=== PATIENT | male | born 1955 | race Caucasian/White ===

== ENCOUNTER 2020-12-30 14:18 | Outpatient (REF) | payer BC, SELFPAY | END 2020-12-30 14:19 | disposition home or self-care (01) | LOC: HO.HOSX 14:18 | PROVIDERS: Visit Provider Orthopaedic Surgery | DX: Z13.89 Encounter for screening for other disorder (principal) ==

== ENCOUNTER 2020-12-31 09:24 | Outpatient (REF) | payer OTHER, BC, SELFPAY ==
--- NOTE | ~2020-12-31 | XR_ITS ---
EXAMINATION: XR KNEES, STANDING AP XR KNEE, RIGHT CLINICAL INFORMATION: Right knee pain. COMPARISON: Radiographs right knee 02/27/2019, 11/03/2016, 12/10/2010 TECHNIQUE: Standing AP view of both knees is performed along with lateral and axial patella views of the right knee. FINDINGS: Right: There is narrowing lateral knee joint compartment with secondary genu valgus similar to prior study 02/27/2019. There are no erosive changes. There is likely some mild chondrocalcinosis medial meniscus. Axial view patella shows no lateralization or tilting. The lateral view shows moderate suprapatellar effusion. Hoffa's fat pad appears normal. Again, there is serpiginous mineralization within the intramedullary proximal tibial shaft consistent with old bone infarct. There is subtle linear lucency in the proximal tibial metaphysis lateral aspect which is a chronic finding, present on prior exams, consistent with benign entity. Left: No definite joint narrowing. No erosive change or definite chondrocalcinosis. Bony mineralization normal. There are bilateral scattered vascular atherosclerotic calcifications. XR/XR knee RT 2V IMPRESSION: Right: 1. Narrowing lateral compartment with secondary genu valgus and moderate suprapatellar effusion. Fine chondrocalcinosis medial meniscus. 2. 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 Old vertically oriented lucencies lateral proximal tibial metaphysis similar to prior studies, consistent with benign entity. Left: Unremarkable. Other: Bilateral vascular atherosclerotic calcifications.
--- NOTE | ~2020-12-31 | XR_ITS ---
EXAMINATION: XR KNEES, STANDING AP XR KNEE, RIGHT CLINICAL INFORMATION: Right knee pain. COMPARISON: Radiographs right knee 02/27/2019, 11/03/2016, 12/10/2010 TECHNIQUE: Standing AP view of both knees is performed along with lateral and axial patella views of the right knee. FINDINGS: Right: There is narrowing lateral knee joint compartment with secondary genu valgus similar to prior study 02/27/2019. There are no erosive changes. There is likely some mild chondrocalcinosis medial meniscus. Axial view patella shows no lateralization or tilting. The lateral view shows moderate suprapatellar effusion. Hoffa's fat pad appears normal. Again, there is serpiginous mineralization within the intramedullary proximal tibial shaft consistent with old bone infarct. There is subtle linear lucency in the proximal tibial metaphysis lateral aspect which is a chronic finding, present on prior exams, consistent with benign entity. Left: No definite joint narrowing. No erosive change or definite chondrocalcinosis. Bony mineralization normal. There are bilateral scattered vascular atherosclerotic calcifications. XR/XR knee standing BI IMPRESSION: Right: 1. Narrowing lateral compartment with secondary genu valgus and moderate suprapatellar effusion. Fine chondrocalcinosis medial meniscus. 2. 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 Old vertically oriented lucencies lateral proximal tibial metaphysis similar to prior studies, consistent with benign entity. Left: Unremarkable. Other: Bilateral vascular atherosclerotic calcifications.
== END 2020-12-31 09:25 | disposition home or self-care (01) ==
LOC: HO.HOSX 09:24
PROVIDERS: PCP Internal Medicine; Visit Provider Orthopaedic Surgery
DX: M17.11 Unilateral primary osteoarthritis, right knee (principal); M25.562 Pain in left knee
CPT/HCPCS: 20610; 73560; 73565; 99202; J1040

== ENCOUNTER 2021-12-17 10:19 | Outpatient (REF) | payer BC, SELFPAY ==
[2021-12-17 10:40] LABS: MANUAL DIFF FLAG NO
[2021-12-17 10:46] LABS: Basophils Percent Auto 0.3 % (0-2); Eosinophils Absolute Auto 0.1 X10*3/uL (0.0-0.4); Eosinophils Percent Auto 0.6 % (0-4); Hematocrit 40.8 % (42.0-52.0); Hemoglobin 13.8 g/dl (14.0-18.0); Imm Gran Abs Auto 0.05 X10*3/uL (0.00-0.03); Imm Gran Pct Auto 0.6 % (0.0-0.4); Lymphocytes Absolute Auto 1.8 X10*3/uL (1.2-4.9); Lymphocytes Percent Auto 19.7 % (20-40); Mean Corpuscular HGB Conc 33.8 g/dl (31.0-36.0); Mean Corpuscular Volume 97.6 fL (80.0-98.0); Mean Platelet Volume 9.4 fL (9.4-12.4); Monocytes Absolute Auto 0.8 X10*3/uL (0.1-1.2); Monocytes Percent Auto 9.1 % (2-11); Neutrophils Absolute Auto 6.2 x10*3/uL (2.0-8.3); Neutrophils Percent Auto 69.7 % (45-73); Platelet Count 323 X10*3/uL (160-400); Red Blood Count 4.18 X10*6/uL (4.60-5.80); Red Cell Distribution Width 14.3 % (11.0-16.0); White Blood Count 8.9 X10*3/uL (4.8-10.8)
[2021-12-17 11:34] LABS: Alanine Aminotransferase 23 U/L (0-40); Albumin Level 3.9 g/dL (3.5-5.0); Alkaline Phosphatase 74 U/L (39-117); Anion Gap 11 (12-20); Aspartate Amino Transferase 36 U/L (5-37); Bilirubin Total 0.8 mg/dL (0.0-1.0); Blood Urea Nitrogen 23 mg/dL (9-16); Calcium 9.7 mg/dL (8.4-10.2); Carbon Dioxide 33 mmol/L (22-29); Chloride 98 mmol/L (96-108); Cholesterol 212 mg/dL; Estimated Glomerular Filt Rate > 60; Glucose Fasting 98 mg/dL (60-99); HDL Cholesterol 90 mg/dL; LDL Cholesterol Calculated 109 mg/dl; Sodium 137 mmol/L (135-145); Total Protein 7.2 g/dL (6.5-8.0); Triglycerides 67 mg/dL
[2021-12-17 11:52] LABS: Prostate Specific Antigen Scr 1.49 ng/mL (<0.05-4.0)
== END 2021-12-17 10:20 | disposition home or self-care (01) ==
LOC: HO.LAB 10:19
PROVIDERS: PCP Internal Medicine; Visit Provider Internal Medicine
DX: Z00.00 Encounter for general adult medical examination without abnormal findings (principal); Z12.5 Encounter for screening for malignant neoplasm of prostate
CPT/HCPCS: 36415; 80053; 80061; 84153; 85025

== ENCOUNTER 2022-10-18 13:09 | Inpatient (IN) | payer MEDICARE, SELFPAY ==
--- NOTE | ~2022-10-18 | XR_ITS ---
EXAMINATION: XR CHEST CLINICAL INFORMATION: Dyspnea COMPARISON: 10/18/2022 TECHNIQUE: Frontal view of the chest was obtained. FINDINGS: Mild elevation of the right hemidiaphragm. Cardiac leads overlie the chest. Mild medial right basilar opacity. No additional consolidation. No edema or effusion. No pneumothorax. The cardiomediastinal silhouette is within normal limits. XR/XR chest 1V IMPRESSION: Mild medial right basilar opacity could represent atelectasis or pneumonia. Aspiration possible.
--- NOTE | ~2022-10-18 | XR_ITS ---
EXAMINATION: XR CHEST CLINICAL INFORMATION: Failure to thrive. COMPARISON: None TECHNIQUE: Frontal view of the chest was obtained. FINDINGS: Prominent bronchovascular markings are noted at left perihilar and lower lung field, may represent subtle interstitial pneumonia/viral pneumonia versus reactive airway disease. Otherwise unremarkable. No focal dense airspace consolidation. The cardiac mediastinal silhouette is within normal limit. No evidence of pleural effusion. XR/XR chest 1V IMPRESSION: Prominent bronchovascular markings at left perihilar and left lower lung field, may represent subtle interstitial pneumonia/viral pneumonia versus reactive airway disease. Follow-up radiograph to resolution is recommended.
--- NOTE | ~2022-10-18 | XR_ITS ---
EXAMINATION: XR CHEST CLINICAL INFORMATION: Cough. COMPARISON: Chest x-ray 11/03/2022 TECHNIQUE: Frontal portable view of the chest was obtained. 4:22 PM FINDINGS: Lung volume low. Redemonstration of the patchy and linear opacity at the medial right lung base. This was not present on the chest x-ray 10/18/2022, however was present on the chest x-ray November 03, 2022. This remains similar since prior prior chest x-ray. Left lung normally aerated. No pulmonary vascular congestion. No pleural effusion or pneumothorax. Heart size is normal. Cardiac mediastinal contours are normal. XR/XR chest 1V IMPRESSION: Persistent patchy and linear opacity at the medial right lung base. This is similar to prior chest x-ray 10/18/2022. This is concerning for pneumonia given history of cough.
--- NOTE | ~2022-10-18 | XR_ITS ---
EXAMINATION: XR CHEST CLINICAL INFORMATION: Shortness of breath COMPARISON: Chest radiograph 11/01/[address] abdomen pelvis 10/18/2022 TECHNIQUE: Frontal view of the chest was obtained. FINDINGS: Heart size normal. There is no evidence of CHF. Atelectasis is again noted in the right mid to lower lung. No acute infiltrates, suspicious lung masses or pleural effusions are seen. XR/XR chest 1V IMPRESSION: No acute intrathoracic disease.
--- NOTE | ~2022-10-18 | CT_ITS ---
EXAMINATION: CT RENAL WITHOUT AND WITH IV CONTRAST CLINICAL INFORMATION: Renal lesion on right. COMPARISON: Abdomen CT from 10/18/2022 TECHNIQUE: Noncontrast and contrast-enhanced volumetric helical CT acquisition of the abdomen. Axial images are presented at 0.6 mm, 3 mm and 5 mm slice thickness. Coronal and sagittal reformatted images were generated at the technologist workstation. Intravenous contrast: 85 mL of Omnipaque 350. This CT examination was performed using dose optimization techniques as appropriate, variously including the following: *Automated exposure control *Adjustment of mA and/or kV according to patient size (this includes techniques or standardized protocols for targeted exams where dose is matched to indication/reason for exam; i.e. extremities or head) *Use of iterative reconstruction technique DLP: 1216 mGy-cm. FINDINGS: LUNG BASES: Compared to 10/18/2022, there is new consolidation with air bronchograms of the right lower lobe along with small right pleural effusion. LIVER, GALLBLADDER, AND BILIARY TREE: Diffuse hepatic steatosis. Otherwise, liver is unremarkable. The gallbladder is grossly normal; no radiopaque gallstones, wall thickening, or pericholecystic fluid. No intrahepatic or extrahepatic bile duct dilatation. PANCREAS: Normal. No evidence of pancreatic mass, edema or ductal dilatation. SPLEEN: Normal. ADRENAL GLANDS: Normal. KIDNEYS AND URETERS: Kidneys are normal in size. No nephrolithiasis or hydronephrosis. 0.8 cm hyperdense cortical lesion of the posterior right kidney has attenuation of 56 HU on the noncontrast images and 58 HU on the postcontrast images, consistent with a hyperdense, proteinaceous cyst (Bosniak category 2 lesion). Also, there is a 0.8 cm simple cortical cyst of the right kidney, and 0.9 cm simple cyst of the mid left kidney. No renal imaging follow-up is recommended for Bosniak category 1 or category 2 cysts. BOWEL AND PERITONEUM: Stomach is unremarkable. No dilated loops of bowel. The appendix is normal. There are diverticula of the partially visualized colon without diverticulitis. ABDOMINAL WALL: A small focus of gas in superficial subcutaneous tissue of the right abdominal wall is likely from recent injection. There is edema within subcutaneous tissues of the flanks and back. LYMPH NODES: No pathologic sized lymph nodes. VASCULATURE: Atherosclerotic calcification of the abdominal aorta and iliac arteries without aneurysm. MUSCULOSKELETAL: Chronic multilevel degenerative arthropathy of the spine. Within lumbar spine, degenerative disc disease is worst at L4-L5 and L5-S1. There is an old concave compression fracture of the L1 inferior endplate. CT/CT renal wo/w IV con IMPRESSION: * Right lower lobe consolidation and small right pleural effusion are new compared to 10/18/2022. Right lower lobe pneumonia is suspected. * Diffuse hepatic steatosis. * 0.8 cm hyperdense/proteinaceous cyst of the right kidney. No suspicious renal lesions. * There is an old concave compression fracture of the L1 inferior endplate.
--- NOTE | ~2022-10-18 | XR_ITS ---
EXAMINATION: XR CHEST CLINICAL INFORMATION: Fever COMPARISON: 10/18/2022 and 10/31/2022 TECHNIQUE: Frontal view of the chest was obtained. FINDINGS: Bronchial valerio are diffusely thickened. Query if there is any history of asthma, cigarette smoking and/or orchitis. A curvilinear opacity in the medial right lower lung is consistent with atelectasis. No overt airspace disease. No pleural effusion. Cardiac silhouette has normal size and contour. The pulmonary vascular pattern is normal. The visualized bones are intact. XR/XR chest 1V IMPRESSION: * Bronchial valerio are thickened. Query if there is any history of asthma or bronchitis. Infectious inflammation of the airways is possible in this patient with history of fever. * Curvilinear opacity in the medial right lower lung likely represents atelectasis. No overt pneumonia.
--- NOTE | ~2022-10-18 | CT_ITS ---
EXAMINATION: CT head/brain wo IV con CLINICAL INFORMATION: Reason for Exam increased confusion COMPARISON: None. TECHNIQUE: Contiguous axial imaging was performed from the skull base to vertex without intravenous contrast. Sagittal and coronal reformatted images were obtained. This CT examination was performed using dose optimization techniques as appropriate, variously including the following: * Automated exposure control * Adjustment of mA and/or kV according to patient size (this includes techniques or standardized protocols for targeted exams where dose is matched to indication/reason for exam; i.e. extremities or head) Use of iterative reconstruction technique DLP: 699 mGy-cm FINDINGS: No acute osseous or soft tissue abnormality. The mastoids are clear. Mild to moderate paranasal sinus mucosal thickening, most prominently involving the right frontal and bilateral maxillary sinuses. Hyperostosis of the right maxillary sinus wall indicative of chronic sinusitis. There is no evidence of acute intracranial hemorrhage or territorial infarction. No abnormal mass effect or midline shift is seen. [place] to white matter differentiation is well preserved. No extra-axial fluid collections are identified. No hydrocephalus. Proportional prominence of the ventricles and sulcal spaces is consistent with mild volume loss. Patchy periventricular and deep white matter hypoattenuation is consistent with mild small vessel ischemic changes. CT/CT head/brain wo IV con IMPRESSION: No acute intracranial abnormality including hemorrhage, mass effect, hydrocephalus, or acute territorial edematous infarction.
--- NOTE | ~2022-10-18 | US_ITS ---
EXAMINATION: US VENOUS ULTRASOUND WITH DOPPLER LOWER EXTREMITY, RIGHT CLINICAL INFORMATION: Right lower extremity edema. Assess for occult DVT. COMPARISON: Radiographs right knee 12/31/2020 TECHNIQUE: Ultrasound of the deep veins is performed from the hip to the calf with compression sonography and color and pulse Doppler assessment. Spectral analysis with color-flow imaging is performed. FINDINGS: There is normal venous compression and respiratory variation and augmented flow. The visualized common femoral vein, superficial femoral vein, profunda femoral vein, popliteal vein, and the trifurcation region shows no evidence of deep venous thrombosis. The posterior tibial and peroneal veins are not clearly visualized. Unable to assess. If the patient's symptoms persist, followup ultrasound in 5 days 7 days might be of value to exclude proximal propagation from a non-visualized calf vein. There is a fluid collection extending from the knee superiorly and measuring 3.7 x 7.6 x 10.9 cm. No peripheral or internal vascularity. No hyperemia. US/US venous duplex LE RT IMPRESSION: -No DVT demonstrated in the right lower extremity from hip to the upper calf. -If the patient's symptoms persist, followup ultrasound in 5 days 7 days might be of value to exclude proximal propagation from a non-visualized calf vein. -Fluid collection extending from the superiorly and measuring 3.7 x 7.6 x 10.9 cm.
[2022-10-18 13:27] VITALS: BP 131/77; BP 96/62; PULSE 68; PULSE 91; RESP 19; TEMP 36.4; O2SAT 96; BMI 29.0
--- NOTE | 2022-10-18 13:50 | ECG_ITS ---
Test Reason : failure to thrive Blood Pressure : / mmHG Vent. Rate : 125 BPM Atrial Rate : 111 BPM P-R Int : 236 ms QRS Dur : 066 ms QT Int : 272 ms P-R-T Axes : 261 079 -78 degrees QTc Int : 392 ms Poor data quality Normal sinus rhythm No previous ECGs available Referred By: Jay Jay Loyd Electronically Signed By:Jaron Mccarthy
--- NOTE | 2022-10-18 13:56 | ED.GENADULT ---
HPI - General Adult General Chief complaint: Failure to Thrive Stated complaint: weakness Time Seen by Provider: 10/18/22 13:46 Source: patient, family (Brother) and EMS Mode of arrival: EMS Limitations: no limitations History of Present Illness HPI narrative: 67-year-old male was brought in by ambulance for further evaluation after was found soaked in urine and feces in his apartment. Patient's brother was trying to call the patient for the past couple weeks with no answer, visited him today found him on the ground cannot get himself up patient cannot confirm for how long he has been on the ground, patient was soaked in urine and feces with cans of beers and alcohol on the ground patient admitted to drinking every day, patient is in very poor hygienic condition when he came to the ED with dry stool and severe skin irritation in the perineal area and mottling of bilateral lower extremities. Patient is not a great historian but declined fever chills. Taking the history from the brother last time he saw the patient was 2 weeks ago patient was active until few months ago when he retired his job, patient lives home alone appeared that he drinks every day. Related Data Previous Rx's Medication Instructions Recorded lisinopril 10 mg tablet 10 mg PO DAILY #90 tabs 04/23/22 hydrochlorothiazide 25 mg tablet 25 mg PO DAILY #90 tabs 05/25/22 Allergies Allergy/AdvReac Type Severity Reaction Status Date / Time No Known Allergies Allergy Verified 05/20/22 10:27 Review of Systems Review of Systems: All other systems are reviewed and are negative Constitutional: Reports as per HPI and Reports no additional constitutional complaints Eyes: Reports as per HPI and Reports no additional eye complaints Reports system reviewed and no additional complaints, except as documented Cardiovascular: Reports as per HPI and Reports no additional cardiovascular complaints Respiratory: Reports as per HPI and Reports no additional respiratory complaints Gastrointestinal: Reports as per HPI and Reports no additional gastrointestinal complaints Genitourinary: Reports no additional female genitourinary complaints Musculoskeletal: Reports no additional musculoskeletal complaints Skin/Breast: Reports system reviewed and no additional complaints, except as docu Psychiatric: Reports no additional psychiatric complaints Endocrine: Reports no additional endocrine complaints Hematologic/Lymphatic: Reports no additional hematologic/lymphatic complaints Allergic/Immunologic: Reports no additional allergic/immunologic complaints Reports system reviewed and no additional complaints, except as documented and Reports Abnormal speech present [facility] Past Medical History Medical History Hypertension Surgical History History of lumbar laminectomy Family History Family History Father No problems noted. Mother Lung cancer Family/Other Lung cancer Throat cancer Social History Social History Housing: Apartment Alcohol intake: current Alcohol intake frequency: 3 or more drinks per day Alcohol type: beer Patient Tobacco Use Status: Current everyday Tobacco user Tobacco use type: Cigarette Cigarette Packs Per Day: 1 Cigarettes Per Day: 20 Smoked in Last 30 Days: Yes e-Cigarette/Vaping Use: Never Used Second Hand Smoke Exposure: Yes Use of substances other than those prescribed or required for medical reasons: No Advance Directives: No Advance Directives Information Provided: Yes service: No Current occupational status: employed 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 Blood pressure normal. Heart rate normal. Respiration rate normal. Temperature normal. Oxygen saturation normal. Appearance: Alert. Oriented to person and place but not to time. Disheveled. in a very poor in general hygienic condition. Head: Normal external exam. Normocephalic. Atraumatic. No Chapman signs noted. No raccoon eyes noted Eyes: PERRLA. EOMI. Conjunctiva and sclera normal. Eyelids normal. ENT: TM's Normal. Pharynx normal. Uvula midline. Moist mucous membranes. No trismus noted. No drooling noted. No muffled voice noted. Neck: Normal inspection. Neck supple. FROM. No adenopathy. Thyroid Normal. No meningeal signs. No neck mass noted. CVS: Normal heart rate and rhythm. Heart sound normal. No murmurs noted. Pulses normal throughout. Respiratory: No respiratory distress. Painless inspiration. Breath sounds normal. No wheezes/rales/rhonchi noted. Chest nontender. No accessory muscle usage noted or decreased air movement noted. Abdomen: Soft and nontender. Bowel sounds normal in all 4 quadrants. No distention noted. No organomegaly noted. No visible injury noted. Back: No CVA tenderness. Full range of motion noted. Decubitus pressure ulcers on the left hip area and rectal area. Skin: Poor hygienic skin condition in a perennial area with redness and hotness in the area and dry stool and urine, PT/DP palpable, no toe ischemic change.. Extremities: No lower extremity edema. Bilateral lower extremities mottling no obvious severe acute ischemic change to the foot or toes Neuro: Oriented X 3. Cranial nerve exam: II-XII are grossly intact No motor deficit. No sensory deficit. Reflexes normal. Skin Other: Course Course Course Narrative: 67-year-old male brought in by ambulance from home with deconditioning and deteriorating. 1. Patient is positive for influenza a and COVID. 2. Buttock area cellulitis no severe sepsis or septic shock patient received IV fluids and Zosyn, no evidence of necrotizing fasciitis on the CT of the abdomen and pelvis. 3. Start phenobarb for alcohol withdrawal precaution. 4. Mild rhabdomyolysis continue with IV hydration. 5. Elevated troponin nondiagnostic EKG due to artifact patient with severe tremors will trend serial troponin. Medications Administered Discontinued Medications Generic Name Dose Route Start Last Admin Trade Name Freq PRN Reason Stop Dose Admin Bacitracin 1 appl 10/18/22 13:49 10/18/22 15:08 Bacitracin Oint 0.9 Gm Packet TOPICAL 10/18/22 13:50 1 appl ONCE ONE Administration Protocol Sodium Chloride 1,000 mls @ 999 mls/hr 10/18/22 13:47 10/18/22 15:08 Ns IV 10/18/22 14:47 999 mls/hr .Q1H1M ONE Administration Piperacillin Sod/Tazobactam 50 mls @ 100 mls/hr 10/18/22 13:53 10/18/22 15:28 Sod 3.375 gm/ Sodium Chloride IV 10/18/22 14:22 100 mls/hr ONCE ONE Administration Phenobarbital Sodium 320 mg 10/18/22 15:00 10/18/22 15:11 Phenobarbital Sodium 130 Mg/Ml Im Once IM 10/18/22 15:01 320 mg ONCE ONE Administration Medical Decision Making Differential Diagnosis Differential Diagnoses: The differential diagnosis associated with the presentation includes (Alcohol withdrawal/rhabdomyolysis/JOHNY/severe dehydration/upper respiratory infection/necrotizing fasciitis/buttock cellulitis.) Admission/Observation Consideration of admission/observation: Escalation of care including admission/observation considered Consult Healthcare Provider Management of the patient was discussed with: Hospitalist Lab Data MDM Lab Attestation statement: I reviewed the patient's lab results. Result Diagrams: 10/18/22 14:49 10/18/22 14:49 Labs: Lab Results 10/18/22 10/18/22 10/18/22 Range/Units 14:48 14:48 14:48 WBC (4.8-10.8) X10*3/uL RBC (4.60-5.80) X10*6/uL Hgb (14.0-18.0) g/dl Hct (42.0-52.0) % MCV (80.0-98.0) fL MCH (27.0-33.0) pg MCHC (31.0-36.0) g/dl RDW (11.0-16.0) % Plt Count (160-400) X10*3/uL MPV (9.4-12.4) fL Immature Gran % (Auto) (0.0-0.4) % Neut % (Auto) (45-73) % Lymph % (Auto) (20-40) % [place] % (Auto) (2-11) % Eos % (Auto) (0-4) % Baso % (Auto) (0-2) % Lymph # (Auto) (1.2-4.9) X10*3/uL [place] # (Auto) (0.1-1.2) X10*3/uL Eos # (Auto) (0.0-0.4) X10*3/uL Baso # (Auto) (0.0-0.2) X10*3/uL Abs Immat Gran (auto) (0.00-0.03) X10*3/uL Absolute Neuts (auto) (2.0-8.3) x10*3/uL Absolute Nucleated RBC (0.0-0.012) X10*3/uL Nucleated RBC % (auto) (0.0-0.2) /100WBC Smear Tech's Comments Sodium (135-145) mmol/L Potassium (3.3-5.1) mmol/L Chloride (96-108) mmol/L Carbon Dioxide (22-29) mmol/L Anion Gap (12-20) BUN (9-16) mg/dL Creatinine (0.5-1.4) mg/dL Estim Creat Clear Calc Estimated GFR Random Glucose (60-115) mg/dL Lactic Acid 2.3 H* (0.5-2.0) mmol/L Calcium (8.4-10.2) mg/dL Magnesium (1.6-2.6) mg/dL Total Bilirubin (0.0-1.0) mg/dL Direct Bilirubin (0.0-0.5) mg/dL AST (5-37) U/L ALT (0-40) U/L Alkaline Phosphatase (39-117) U/L Total Creatine Kinase (38-174) U/L Troponin I High Sens 222.1 H* (<3.5-35.0) ng/L B-Natriuretic Peptide (<100) pg/mL Total Protein (6.5-8.0) g/dL Albumin (3.5-5.0) g/dL Lipase (8-78) U/L Urine Color Dark Yellow Urine Appearance Clear Urine pH 5.5 (5.0-9.0) Ur Specific [place] 1.025 (1.005-1.025) Urine Protein Trace (Neg-Trace) mg/dL Urine Glucose (UA) Negative (Negative) mg/dL Urine Ketones 15 (Negative) mg/dL Urine Blood Negative (Negative) Urine Nitrite Negative (Negative) Ur Leukocyte Esterase Trace H (Negative) Urine RBC 0-2 (0-2) /HPF Urine WBC 6-10 H (0-5) /HPF Ur Squamous Epith Cells 0-2 (0-2) /HPF Urine Bacteria None Seen (None Seen) Hyaline Casts 0-2 (0-2) /LPF Ethyl Alcohol mg/dL Influenza Type A (PCR) (Negative) Influenza Type B (PCR) (Negative) RSV RNA Qual (PCR) (Negative) SARS-CoV-2 RNA (RT-PCR) (Negative) 10/18/22 10/18/22 10/18/22 Range/Units 14:49 14:49 14:49 WBC 10.9 H (4.8-10.8) X10*3/uL RBC 4.70 (4.60-5.80) X10*6/uL Hgb 15.5 (14.0-18.0) g/dl Hct 43.7 (42.0-52.0) % MCV 93.0 (80.0-98.0) fL MCH 33.0 (27.0-33.0) pg MCHC 35.5 (31.0-36.0) g/dl RDW 13.1 (11.0-16.0) % Plt Count 281 (160-400) X10*3/uL MPV 11.0 (9.4-12.4) fL Immature Gran % (Auto) 1.3 H (0.0-0.4) % Neut % (Auto) 68.6 (45-73) % Lymph % (Auto) 20.3 (20-40) % [place] % (Auto) 9.5 (2-11) % Eos % (Auto) 0.0 (0-4) % Baso % (Auto) 0.3 (0-2) % Lymph # (Auto) 2.2 (1.2-4.9) X10*3/uL [place] # (Auto) 1.0 (0.1-1.2) X10*3/uL Eos # (Auto) 0.0 (0.0-0.4) X10*3/uL Baso # (Auto) 0.0 (0.0-0.2) X10*3/uL Abs Immat Gran (auto) 0.14 H (0.00-0.03) X10*3/uL Absolute Neuts (auto) 7.5 (2.0-8.3) x10*3/uL Absolute Nucleated RBC 0.000 (0.0-0.012) X10*3/uL Nucleated RBC % (auto) 0.0 (0.0-0.2) /100WBC Smear Tech's Comments VERIFIED Sodium 141 (135-145) mmol/L Potassium 4.8 (3.3-5.1) mmol/L Chloride 97 (96-108) mmol/L Carbon Dioxide 27 (22-29) mmol/L Anion Gap 22 H (12-20) BUN 37 H (9-16) mg/dL Creatinine 1.04 (0.5-1.4) mg/dL Estim Creat Clear Calc 87.9 Estimated GFR > 60 Random Glucose 80 (60-115) mg/dL Lactic Acid (0.5-2.0) mmol/L Calcium 8.6 D (8.4-10.2) mg/dL Magnesium (1.6-2.6) mg/dL Total Bilirubin 0.9 (0.0-1.0) mg/dL Direct Bilirubin 0.6 H (0.0-0.5) mg/dL AST 221 H (5-37) U/L ALT 195 H (0-40) U/L Alkaline Phosphatase 143 H (39-117) U/L Total Creatine Kinase 810 H (38-174) U/L Troponin I High Sens (<3.5-35.0) ng/L B-Natriuretic Peptide 334 H (<100) pg/mL Total Protein 5.9 L (6.5-8.0) g/dL Albumin 2.8 L (3.5-5.0) g/dL Lipase 24 (8-78) U/L Urine Color Urine Appearance Urine pH (5.0-9.0) Ur Specific [place] (1.005-1.025) Urine Protein (Neg-Trace) mg/dL Urine Glucose (UA) (Negative) mg/dL Urine Ketones (Negative) mg/dL Urine Blood (Negative) Urine Nitrite (Negative) Ur Leukocyte Esterase (Negative) Urine RBC (0-2) /HPF Urine WBC (0-5) /HPF Ur Squamous Epith Cells (0-2) /HPF Urine Bacteria (None Seen) Hyaline Casts (0-2) /LPF Ethyl Alcohol mg/dL Influenza Type A (PCR) (Negative) Influenza Type B (PCR) (Negative) RSV RNA Qual (PCR) (Negative) SARS-CoV-2 RNA (RT-PCR) (Negative) 10/18/22 10/18/22 Range/Units 14:49 14:52 WBC (4.8-10.8) X10*3/uL RBC (4.60-5.80) X10*6/uL Hgb (14.0-18.0) g/dl Hct (42.0-52.0) % MCV (80.0-98.0) fL MCH (27.0-33.0) pg MCHC (31.0-36.0) g/dl RDW (11.0-16.0) % Plt Count (160-400) X10*3/uL MPV (9.4-12.4) fL Immature Gran % (Auto) (0.0-0.4) % Neut % (Auto) (45-73) % Lymph % (Auto) (20-40) % [place] % (Auto) (2-11) % Eos % (Auto) (0-4) % Baso % (Auto) (0-2) % Lymph # (Auto) (1.2-4.9) X10*3/uL [place] # (Auto) (0.1-1.2) X10*3/uL Eos # (Auto) (0.0-0.4) X10*3/uL Baso # (Auto) (0.0-0.2) X10*3/uL Abs Immat Gran (auto) (0.00-0.03) X10*3/uL Absolute Neuts (auto) (2.0-8.3) x10*3/uL Absolute Nucleated RBC (0.0-0.012) X10*3/uL Nucleated RBC % (auto) (0.0-0.2) /100WBC Smear Tech's Comments Sodium (135-145) mmol/L Potassium (3.3-5.1) mmol/L Chloride (96-108) mmol/L Carbon Dioxide (22-29) mmol/L Anion Gap (12-20) BUN (9-16) mg/dL Creatinine (0.5-1.4) mg/dL Estim Creat Clear Calc Estimated GFR Random Glucose (60-115) mg/dL Lactic Acid (0.5-2.0) mmol/L Calcium (8.4-10.2) mg/dL Magnesium 2.2 (1.6-2.6) mg/dL Total Bilirubin (0.0-1.0) mg/dL Direct Bilirubin (0.0-0.5) mg/dL AST (5-37) U/L ALT (0-40) U/L Alkaline Phosphatase (39-117) U/L Total Creatine Kinase (38-174) U/L Troponin I High Sens (<3.5-35.0) ng/L B-Natriuretic Peptide (<100) pg/mL Total Protein (6.5-8.0) g/dL Albumin (3.5-5.0) g/dL Lipase (8-78) U/L Urine Color Urine Appearance Urine pH (5.0-9.0) Ur Specific [place] (1.005-1.025) Urine Protein (Neg-Trace) mg/dL Urine Glucose (UA) (Negative) mg/dL Urine Ketones (Negative) mg/dL Urine Blood (Negative) Urine Nitrite (Negative) Ur Leukocyte Esterase (Negative) Urine RBC (0-2) /HPF Urine WBC (0-5) /HPF Ur Squamous Epith Cells (0-2) /HPF Urine Bacteria (None Seen) Hyaline Casts (0-2) /LPF Ethyl Alcohol < 10 mg/dL Influenza Type A (PCR) POSITIVE A (Negative) Influenza Type B (PCR) NEGATIVE (Negative) RSV RNA Qual (PCR) NEGATIVE (Negative) SARS-CoV-2 RNA (RT-PCR) POSITIVE A (Negative) Independent Interpretation I performed an independent interpretation of an: Plain X-Ray (No acute pathology.) and CT Scan (Abdomen: No subcutaneous air suggesting for necrotizing fasciitis.) Radiology Impression Discussion of test interpretation with radiology: I have reviewed the radiologist's reading. Critical Care Time Critical Care Time Critical Care Time: Yes Total Critical Care Time: 60 Attestation: I spent 60 minutes providing critical care service to the patient, this including time spent at the bedside to evaluate the patient, reassess the patient, monitoring vital signs, review labs, and radiographic studies, counseling the patient/family, discussing the case with consultants, disposition the patient. Discharge Plan Discharge Clinical Impression: Rhabdomyolysis, Cellulitis of buttock, Alcohol withdrawal, COVID-19 virus infection, Influenza A, Elevated troponin level Patient Disposition: Admitted As Inpatient Prescriptions: No Action lisinopril 10 mg tablet 10 mg PO DAILY Qty: 90 8RF hydrochlorothiazide 25 mg tablet 25 mg PO DAILY Qty: 90 7RF
--- NOTE | 2022-10-18 14:08 | PC.NURSE ---
pt is a/o x 4 no sob/katlyn noted speaks in full sentences. lungs- cta. heart sounds regular. abd soft and non-tender. bx + x 4 uqads. pt parrish legs mottled. pt has an abrasion to r knee approx quarter in size. pt has abrasion (soumya) to left hip approx half a dollar in size. pt parrish groin soumya. pt buttock enormous area has stage II patchy areas of open area some areas scabbed over.pt was found to be incontinent of urine area red and raw, areas cleansed and bacitracin applied. moisture barrier cream to parrish groin areas. pt also has bony prominences to parrish shoulder areas no open areas noted. draper cath 16 fr inserted with joni color urine and 800ml with immediate output.
[2022-10-18 14:09] VITALS: BP 135/85; PULSE 100; RESP 16; TEMP 35.7; O2SAT 93
--- NOTE | 2022-10-18 14:54 | PHA.MEDREC ---
Pharmacy Consult ? Medication Reconciliation Pharmacy has completed the medication reconciliation. Patient confirmed medications. Reports he last took them yesterday. Reports using [facility] to get medications. Angela Gay, LeonardaD
[2022-10-18 15:00] LABS: Basophils Percent Auto 0.3 % (0-2); Hematocrit 43.7 % (42.0-52.0); Hemoglobin 15.5 g/dl (14.0-18.0); Imm Gran Abs Auto 0.14 X10*3/uL (0.00-0.03); Imm Gran Pct Auto 1.3 % (0.0-0.4); Lymphocytes Absolute Auto 2.2 X10*3/uL (1.2-4.9); Lymphocytes Percent Auto 20.3 % (20-40); MANUAL DIFF FLAG SCAN; Mean Corpuscular HGB Conc 35.5 g/dl (31.0-36.0); Monocytes Percent Auto 9.5 % (2-11); Neutrophils Absolute Auto 7.5 x10*3/uL (2.0-8.3); Neutrophils Percent Auto 68.6 % (45-73); Platelet Count 281 X10*3/uL (160-400); Red Cell Distribution Width 13.1 % (11.0-16.0); SCAN SMEAR FLAG 1; White Blood Count 10.9 X10*3/uL (4.8-10.8)
[2022-10-18 15:04] LABS: Appearance Urine Clear; Color Urine Dark Yellow; Glucose Urine UA Negative (Negative); Leukocyte Esterase Urine Trace (Negative); Nitrite Urine Negative (Negative); PH 5.5 (5.0-9.0); Specific Gravity - Urine 1.025 (1.005-1.025); UMIC TRIGGER UACC YES; Urine Blood Negative (Negative); Urine Ketones 15 mg/dL (Negative); Urine Protein Trace mg/dL (Neg-Trace)
[2022-10-18 15:15] VITALS: O2SAT 95
[2022-10-18 15:16] LABS: Bacteria Urine None Seen (None Seen); Hyaline Casts Urine 0-2 /LPF (0-2); RBC Urine 0-2 /HPF (0-2); Squamous Epithelial Cell Urine 0-2 /HPF (0-2); UACC Culture Trigger YES
[2022-10-18 15:23] LABS: SLIDE REVIEW VERIFIED
[2022-10-18 15:26] LABS: B Type Natriuretic Peptide 334 pg/mL (<100)
[2022-10-18 15:27] LABS: Lactic Acid 2.3 mmol/L (0.5-2.0)
[2022-10-18 15:28] LABS: Ethanol < 10 mg/dL; Magnesium 2.2 mg/dL (1.6-2.6)
[2022-10-18 15:34] LABS: Alanine Aminotransferase 195 U/L (0-40); Albumin Level 2.8 g/dL (3.5-5.0); Alkaline Phosphatase 143 U/L (39-117); Anion Gap 22 (12-20); Aspartate Amino Transferase 221 U/L (5-37); Bilirubin Direct 0.6 mg/dL (0.0-0.5); Bilirubin Total 0.9 mg/dL (0.0-1.0); Blood Urea Nitrogen 37 mg/dL (9-16); Calcium 8.6 mg/dL (8.4-10.2); Carbon Dioxide 27 mmol/L (22-29); Chloride 97 mmol/L (96-108); Creatinine Clr Calc Pharmacy 87.9; Estimated Glomerular Filt Rate > 60; Glucose Random 80 mg/dL (60-115); Lipase 24 U/L (8-78); Potassium 4.8 mmol/L (3.3-5.1); Sodium 141 mmol/L (135-145); Total Protein 5.9 g/dL (6.5-8.0)
[2022-10-18 15:36] LABS: Influenza A PCR POSITIVE (Negative); Influenza B PCR NEGATIVE (Negative); Resp Syncy Virus RNA Qual PCR NEGATIVE (Negative); SARS COV2 PCR INHOUSE POSITIVE (Negative)
[2022-10-18 15:37] LABS: Troponin-I High Sensitivity 222.1 ng/L (<3.5-35.0)
--- NOTE | 2022-10-18 16:51 | P.HPHOSP_ITS ---
History of Present Illness Date of Service: 10/18/22 <Brittany Cesar NP - Last Filed: 10/19/22 09:30> Attending physician on admission: Natanael Horowitz <Brittany Cesar NP - Last Filed: 10/19/22 09:30> Chief Complaint: Failure to thrive <Brittany Cesar NP - Last Filed: 10/19/22 09:30> 67-year-old man presenting to the ER with failure to thrive. Apparently the patient's brother had been trying to reach him for a few weeks with no an swer he, he went to visit him today and found him on the ground soaked in urine and feces in his apartment and found in very poor hygiene make conditions. Patient had previously been quite active but recently retired and lives at home alone. He was also found surrounded by beer cans. Unfortunately patient cannot confirm for how long he had been on the ground the CPK was mildly elevated in the 800s. Was also noted to have severe excoriation with cellulitis to his buttocks. Mildly hypothermic with lactic acidosis and tachycardia. Influenza and COVID positive. Possible consolidation on x-ray. Noted transaminitis. In the ER he was given Zosyn, started phenobarbital, 1 L of IV fluid and [employer] recent applied to his buttock area. He will be admitted for further management and treatment of failure to thrive, influenza and COVID and likely viral pneumonia. <Brittany Cesar NP - Last Filed: 10/19/22 09:30> Review of Systems Review of Systems: Yes Unobtainable due to mental condition and Unobtainable due to mental status <Brittany Cesar NP - Last Filed: 10/19/22 09:30> [facility] Medical History: Medical History Hypertension <Brittany Cesar NP - Last Filed: 10/19/22 09:30> Family History: Family History Father No problems noted. Mother Lung cancer Family/Other Lung cancer Throat cancer <Brittany Cesar NP - Last Filed: 10/19/22 09:30> Surgical History: Surgical History History of lumbar laminectomy <Brittany Cesar NP - Last Filed: 10/19/22 09:30> Social History: Social History Household Members: None Housing: Apartment Unable to assess alcohol history related to: Unable to respond Alcohol intake: current Alcohol intake frequency: 3 or more drinks per day Alcohol type: beer Patient Tobacco Use Status: Current everyday Tobacco user Tobacco use type: Cigarette Cigarette Packs Per Day: 1 Cigarettes Per Day: 20 Smoked in Last 30 Days: Yes e-Cigarette/Vaping Use: Never Used Patient Interested in Nicotine Replacement: No Patient Given Instructions on How to Stop Smoking: No Second Hand Smoke Exposure: Yes Use of substances other than those prescribed or required for medical reasons: Unable to respond Have you been hit, kicked, punched, or otherwise hurt by someone within the past year? 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 Cognitive needs: No Hearing needs: No Vision needs: Yes <Brittany Cesar NP - Last Filed: 10/19/22 09:30> Meds Allergies/Adverse reactions: Allergies Allergy/AdvReac Type Severity Reaction Status Date / Time No Known Allergies Allergy Verified 05/20/22 10:27 <Brittany Cesar NP - Last Filed: 10/19/22 09:30> Active Medications: Current Medications Ampicillin Sodium/Sulbactam (Sodium 3 gm/ Sodium Chloride) 100 mls @ 200 mls/hr IV Q6H [facility] Vancomycin HCl (Vancomycin/Ns) 2,000 mg in 520 mls @ 260 mls/hr IV ONCE ONE Stop: 10/18/22 18:59 Lisinopril (Lisinopril 10 Mg Tablet) 10 mg PO DAILY [facility]; Protocol Oseltamivir Phosphate (Oseltamivir Phosphate 75 Mg Capsule) 75 mg PO Q12H [facility] Stop: 10/23/22 05:01 Pharmacy Consult (Consult Rx Perform Med Rec) 1 each MISCELLANE ONCE PRN PRN Reason: Consult order Pharmacy Consult (Consult Rx Etoh Phenob Im/Po) 1 each MISCELLANE ONCE PRN; Protocol PRN Reason: Consult order Pharmacy Consult (Consult Rx Vancomycin Dosing) 1 each MISCELLANE DAILY [facility] Phenobarbital (Phenobarbital 30 Mg Tablet) 60 mg PO BID [facility] Stop: 10/20/22 21:01 Phenobarbital (Phenobarbital 30 Mg Tablet) 30 mg PO BID [facility] Stop: 10/22/22 21:01 Phenobarbital (Phenobarbital 30 Mg Tablet) 30 mg PO DAILY [facility] Stop: 10/24/22 09:01 Phenobarbital Sodium (Phenobarbital Sodium 130 Mg/Ml Vial Im Q3hx2) 240 mg IM Q3H [facility] Stop: 10/18/22 21:01 <Brittany Cesar NP - Last Filed: 10/19/22 09:30> Physical Exam Vital Signs and Narrative: Vital Signs: Last Vital Signs Temp 96.2 F L 10/18/22 14:09 Pulse 100 10/18/22 14:09 Resp 16 10/18/22 14:09 BP 135/85 10/18/22 14:09 Pulse Ox 95 10/18/22 15:15 O2 Del Method 10/18/22 15:15 BMI result Body Mass Index 29.0 <Brittany Cesar NP - Last Filed: 10/19/22 09:30> Appearing in no acute distress, unkept appearance head is normocephalic atraumatic eyes pupils are PERRLA sclera is anicteric mouth throat mucous membranes are intact and moist neck is supple no lymphadenopathy, no JVD noted lung sounds are clear to auscultation heart regular rate rhythm, clear S1, S2 positive bowel sounds, abdomen is soft, nontender neuro patient is alert x3, no focal deficits Severe excoriation, cellulitic area to buttocks with dried stool multiple scabbed areas to knees <Brittany Ceasr NP - Last Filed: 10/19/22 09:30> Results Labs CBC and Chem 7: : 10/19/22 05:52 10/19/22 05:52 <Brittany Cesar NP - Last Filed: 10/19/22 09:30> Labs: Laboratory Results - last 24 hr 10/18/22 10/18/22 10/18/22 14:48 14:48 14:48 MCV MCH MCHC RDW Plt Count MPV Immature Gran % (Auto) Neut % (Auto) Lymph % (Auto) [place] % (Auto) Eos % (Auto) Baso % (Auto) Lymph # (Auto) [place] # (Auto) Eos # (Auto) Baso # (Auto) Abs Immat Gran (auto) Absolute Neuts (auto) Absolute Nucleated RBC Nucleated RBC % (auto) Smear Tech's Comments Anion Gap Estim Creat Clear Calc Estimated GFR Random Glucose Lactic Acid 2.3 H* Calcium Magnesium Total Bilirubin Direct Bilirubin AST ALT Alkaline Phosphatase Total Creatine Kinase Troponin I High Sens 222.1 H* B-Natriuretic Peptide Total Protein Albumin Lipase Urine Color Dark Yellow Urine Appearance Clear Urine pH 5.5 Ur Specific [place] 1.025 Urine Protein Trace Urine Glucose (UA) Negative Urine Ketones 15 Urine Blood Negative Urine Nitrite Negative Ur Leukocyte Esterase Trace H Urine RBC 0-2 Urine WBC 6-10 H Ur Squamous Epith Cells 0-2 Urine Bacteria None Seen Hyaline Casts 0-2 Ethyl Alcohol Influenza Type A (PCR) Influenza Type B (PCR) RSV RNA Qual (PCR) SARS-CoV-2 RNA (RT-PCR) 10/18/22 10/18/22 10/18/22 14:49 14:49 14:49 MCV 93.0 MCH 33.0 MCHC 35.5 RDW 13.1 Plt Count 281 MPV 11.0 Immature Gran % (Auto) 1.3 H Neut % (Auto) 68.6 Lymph % (Auto) 20.3 [place] % (Auto) 9.5 Eos % (Auto) 0.0 Baso % (Auto) 0.3 Lymph # (Auto) 2.2 [place] # (Auto) 1.0 Eos # (Auto) 0.0 Baso # (Auto) 0.0 Abs Immat Gran (auto) 0.14 H Absolute Neuts (auto) 7.5 Absolute Nucleated RBC 0.000 Nucleated RBC % (auto) 0.0 Smear Tech's Comments VERIFIED Anion Gap 22 H Estim Creat Clear Calc 87.9 Estimated GFR > 60 Random Glucose 80 Lactic Acid Calcium 8.6 D Magnesium Total Bilirubin 0.9 Direct Bilirubin 0.6 H AST 221 H ALT 195 H Alkaline Phosphatase 143 H Total Creatine Kinase 810 H Troponin I High Sens B-Natriuretic Peptide 334 H Total Protein 5.9 L Albumin 2.8 L Lipase 24 Urine Color Urine Appearance Urine pH Ur Specific [place] Urine Protein Urine Glucose (UA) Urine Ketones Urine Blood Urine Nitrite Ur Leukocyte Esterase Urine RBC Urine WBC Ur Squamous Epith Cells Urine Bacteria Hyaline Casts Ethyl Alcohol Influenza Type A (PCR) Influenza Type B (PCR) RSV RNA Qual (PCR) SARS-CoV-2 RNA (RT-PCR) 10/18/22 10/18/22 14:49 14:52 MCV MCH MCHC RDW Plt Count MPV Immature Gran % (Auto) Neut % (Auto) Lymph % (Auto) [place] % (Auto) Eos % (Auto) Baso % (Auto) Lymph # (Auto) [place] # (Auto) Eos # (Auto) Baso # (Auto) Abs Immat Gran (auto) Absolute Neuts (auto) Absolute Nucleated RBC Nucleated RBC % (auto) Smear Tech's Comments Anion Gap Estim Creat Clear Calc Estimated GFR Random Glucose Lactic Acid Calcium Magnesium 2.2 Total Bilirubin Direct Bilirubin AST ALT Alkaline Phosphatase Total Creatine Kinase Troponin I High Sens B-Natriuretic Peptide Total Protein Albumin Lipase Urine Color Urine Appearance Urine pH Ur Specific [place] Urine Protein Urine Glucose (UA) Urine Ketones Urine Blood Urine Nitrite Ur Leukocyte Esterase Urine RBC Urine WBC Ur Squamous Epith Cells Urine Bacteria Hyaline Casts Ethyl Alcohol < 10 Influenza Type A (PCR) POSITIVE A Influenza Type B (PCR) NEGATIVE RSV RNA Qual (PCR) NEGATIVE SARS-CoV-2 RNA (RT-PCR) POSITIVE A <Brittany Cesar ORNAMENTAL METAL WORKER APPRENTICE - Last Filed: 10/19/22 09:30> Imaging Radiologist's Impressions: Impressions Chest X-Ray 10/18/22 14:35 IMPRESSION: Prominent bronchovascular markings at left perihilar and left lower lung field, may represent subtle interstitial pneumonia/viral pneumonia versus reactive airway disease. Follow-up radiograph to resolution is recommended. Abdomen/Pelvis CT 10/18/22 14:40 IMPRESSION: Asymmetric subcutaneous fat stranding in the left gluteal soft tissues with overlying skin thickening suggestive of cellulitis. Please note that the scrotum and gluteal soft tissues are incompletely imaged. No subcutaneous emphysema within the field of view to suggest necrotizing fasciitis. Lower lobe bronchiectasis with bronchial wall thickening suggesting airways inflammation. Patchy centrilobular nodules in the left lung base suggesting airways infection. Age-indeterminate inferior wedge compression deformity of the L1 vertebral body with approximately 50% height loss. Hepatic steatosis. A 1 cm indeterminate, intermediate attenuation right renal lesion for which differential considerations could include a hyperdense renal cyst or a small renal mass. CT renal mass protocol or MR with contrast is recommended for further evaluation. 4 mm solid left lower lobe pulmonary nodule. Assuming patient has no history of malignancy, recommend follow-up per Fleischner Society recommendations. According to the UPDATED 2017 Fleischner Society recommendations, the advised followup imaging for solid nodules < 6 mm is: LOW RISK PATIENT: No routine follow up. HIGH RISK PATIENT: Optional CT at 12 months. <Brittany Cesar NP - Last Filed: 10/19/22 09:30> Assessment and Plan (1) Rhabdomyolysis: Status: Acute <Brittany Cesar NP - Last Filed: 10/19/22 09:30> 67-year-old man presented with failure to thrive and severe alcoholism, he drinks on a daily basis and was found his home extremely unkept Severe sepsis, multifactorial with cellulitis, COVID-19 and influenza Hypothermia, tachycardia, lactic acidosis No hypotension, no need for 30 mL/kg fluid bolus at this time Blood cultures pending COVID 19/influenza a No hypoxia noted, no need for remdesivir or steroids at this time Chest x-ray showing lower lobe bronchiectasis with bronchial wall thickening suggestive of airway inflammation with airway infection Unasyn and vancomycin Tamiflu Supplemental oxygen Id consult Severe buttocks excoriation/cellulitis Keep area clean bacitracin wound consult Continue vancomycin Failure to thrive Likely secondary to alcohol use Physical therapy consultation Addiction medicine consultation Add protein to diet, encourage oral intake Alcohol abuse Started on phenobarbital Addiction medicine consultation pending Folic acid, thiamine, multivitamin Elevated CPK. 810 Patient found on the ground by his brother, unable to calculate how long he had been there Secondary to dehydration, fall IV fluids Transaminitis Secondary to alcohol abuse Follow closely Elevated troponin No complaints of chest pain No ischemic changes on EKG Likely secondary to elevated CPK Repeat Hypertension Stable blood pressure Continue lisinopril DVT prophylaxis with heparin Full code Patient will need 2 inpatient midnights for treatment of influenza a and COVID- 19 along with severe buttocks cellulitis and failure to thrive <Brittany Cesar NP - Last Filed: 10/19/22 09:30> 67-year-old man presented with failure to thrive and severe alcoholism, he drinks on a daily basis and was found his home extremely unkept Severe sepsis, multifactorial with cellulitis, COVID-19 and influenza Hypothermia, tachycardia, lactic acidosis No hypotension, no need for 30 mL/kg fluid bolus at this time Blood cultures pending COVID 19/influenza a No hypoxia noted, no need for remdesivir or steroids at this time Chest x-ray showing lower lobe bronchiectasis with bronchial wall thickening suggestive of airway inflammation with airway infection Unasyn and vancomycin Tamiflu Supplemental oxygen Id consult Severe buttocks excoriation/cellulitis Keep area clean bacitracin wound consult Continue vancomycin Failure to thrive Likely secondary to alcohol use Physical therapy consultation Addiction medicine consultation Add protein to diet, encourage oral intake Alcohol abuse Started on phenobarbital Addiction medicine consultation pending Folic acid, thiamine, multivitamin Elevated CPK. 810 Patient found on the ground by his brother, unable to calculate how long he had been there Secondary to dehydration, fall IV fluids Transaminitis Secondary to alcohol abuse Follow closely Elevated troponin No complaints of chest pain No ischemic changes on EKG Likely secondary to elevated CPK Repeat Hypertension Stable blood pressure Continue lisinopril DVT prophylaxis with heparin Full code Patient will need 2 inpatient midnights for treatment of influenza a and COVID- 19 along with severe buttocks cellulitis and failure to thrive Addendum to history and physical by the advanced practice provider, Brittany Cesar I interviewed and examined the patient. I discussed their presentation and management with the SHAREE. I reviewed the history and physical and agree with the documentation, with the following additions and corrections: 67yo M with AUD found down by brother soaked in urine/feces. Actively withdrawing from [facility] upon presentation to ED and found to have sepsis from cellulitis to buttock with no nec fasc. Mild rhabdomyolysis. Transminasemia consistent with EtOH hepatitis. Positive PCR for influenza A and Covid-19. Not hypoxia. Admit to [facility]. PHenobarbital taper. Oseltamivir. Give ampicillin-sulbactam and vancomycin. Repeat hsTn-I- was 222 upon presentation. Likely cross-reactivity with CPK, though. Addiction medicine consultation. <Natanael Horowitz MD - Last Filed: 10/18/22 17:56> Time Spent With Patient Time: Total time managing care of this patient today ____ minutes. <Brittany Cesar NP - Last Filed: 10/19/22 09:30> Quality Stroke Does the patient have a stroke diagnosis?: No <Natanael Horowitz MD - Last Filed: 10/18/22 17:56> VTE Prior VTE?: No <Natanael Horowitz MD - Last Filed: 10/18/22 17:56> VTE Risk Level:: Medical - moderate - high <Natanael Horowitz MD - Last Filed: 10/18/22 17:56> VTE Device Contraindication: N/A - Device Ordered <Natanael Horowitz MD - Last Filed: 10/18/22 17:56> VTE Drug Contraindication: N/A - Med Ordered <Natanael Horowitz MD - Last Filed: 10/18/22 17:56>
--- NOTE | 2022-10-18 16:57 | PHA.PROG ---
Admission Date/Time: Indication: RESP INF Weight in k.79 kg Adjusted body weight in K KG [place] body weight in K.9 KG Obesity Dosing Indication % IBW: Serum Creatinine - Last 168 Hours 10/18/22 14:49 Creatinine 1.04 Estimated CrCl and GFR - Last 168 Hours 10/18/22 14:49 Estim Creat Clear Calc 87.9 Estimated GFR > 60 Vancomycin Loading Dose: 2000 MG Current Vancomycin Dosing Regimen: 1000 MG Q12H Vancomycin Monitoring using AUC goal of 400 - 600 range with trough as surrogate marker: PREDICTED AUC OF 505 Date and Time for next Vancomycin Level to be drawn: 10/20/22 @0500 ( PRIOR TO 4TH DOSE) Pharmacist Comments on Vancomycin Plan: Vancomycin dosing will take advantage of [employer] as a clinical decision support tool that uses Bayesian modeling to calculate individual patient's pharmacokinetic parameters and forecast the patient's drug concentration time course with the target goal AUC 24 range of 400 - 600 mg/L/hr.
[2022-10-18 17:16] LABS: Magnesium 2.2 mg/dL (1.6-2.6)
[2022-10-18] MEDS: Oseltamivir Phosphate 75 MG CAPSULE PO (17:20)
[2022-10-18] MEDS: Heparin Sodium,Porcine 5,000 UNIT/ML VIAL 5000 UNIT SUBCUT (17:21)
[2022-10-18 17:57] LABS: ~Lactic Acid-LAB USE ONLY 1.3 mmol/L (0.5-2.0)
[2022-10-18 18:12] LABS: Troponin-I High Sensitivity 225.1 ng/L (<3.5-35.0)
[2022-10-18 19:46] VITALS: BP 110/68; PULSE 74; RESP 20; TEMP 36.8; O2SAT 97
[2022-10-18 22:24] VITALS: BMI 26.5
[2022-10-18 23:03] VITALS: BP 163/80; PULSE 90; TEMP 36.3; O2SAT 95
[2022-10-19] VITALS (7 sets, daily range): BP systolic 91–103; BP diastolic 57–76; PULSE 68–96; RESP 17–22; TEMP 36.1–37.1; O2SAT 93–96; BMI 26.5
[2022-10-19] MEDS: Oseltamivir Phosphate 75 MG CAPSULE PO ×2 (05:04→17:12)
[2022-10-19] MEDS: Heparin Sodium,Porcine 5,000 UNIT/ML VIAL 5000 UNIT SUBCUT ×2 (05:04→17:12)
[2022-10-19 06:32] LABS: Hematocrit 37.6 % (42.0-52.0); Hemoglobin 13.1 g/dl (14.0-18.0); Mean Corpuscular HGB Conc 34.8 g/dl (31.0-36.0); Mean Corpuscular Hemoglobin 32.3 pg (27.0-33.0); Mean Corpuscular Volume 92.6 fL (80.0-98.0); Mean Platelet Volume 11.2 fL (9.4-12.4); Platelet Count 223 X10*3/uL (160-400); Red Blood Count 4.06 X10*6/uL (4.60-5.80); Red Cell Distribution Width 13.2 % (11.0-16.0); White Blood Count 11.8 X10*3/uL (4.8-10.8)
[2022-10-19 06:48] LABS: Alanine Aminotransferase 130 U/L (0-40); Albumin Level 2.2 g/dL (3.5-5.0); Alkaline Phosphatase 121 U/L (39-117); Anion Gap 16 (12-20); Aspartate Amino Transferase 136 U/L (5-37); Bilirubin Direct 0.4 mg/dL (0.0-0.5); Bilirubin Total 0.8 mg/dL (0.0-1.0); Blood Urea Nitrogen 27 mg/dL (9-16); Calcium 7.3 mg/dL (8.4-10.2); Carbon Dioxide 24 mmol/L (22-29); Chloride 107 mmol/L (96-108); Creatinine Clr Calc Pharmacy 94.5; Estimated Glomerular Filt Rate > 60; Glucose Random 149 mg/dL (60-115); Magnesium 1.8 mg/dL (1.6-2.6); Potassium 3.3 mmol/L (3.3-5.1); Sodium 144 mmol/L (135-145); Total Protein 4.8 g/dL (6.5-8.0)
--- NOTE | 2022-10-19 08:42 | MHC.CM.PN ---
Patient is both Covid and Influenza positive; CM spoke with him over the phone at room Ext. [phone]. Patient is listed as, self-pay, CM has made a referral to [facility]. Patient is documented as a 2 assist and STR appears likely, pending PT eval and insurance. CM has initiated and will follow for dc planning. Patient's PCP is Dr. Winston Phipps and he has received Moderna/Covid vax x3. Patient is here with FTT and ETOH Withdrawal and he may benefit from a Care Team Consult.
[2022-10-19] MEDS: Folic Acid 1 MG TABLET PO (08:53)
[2022-10-19] MEDS: Multivitamin TABLET 1 TAB PO (08:53)
[2022-10-19] MEDS: Thiamine HCL 100 MG TABLET PO (08:53)
--- NOTE | 2022-10-19 09:13 | MHC.CM.PN ---
Per Aye in [facility], Patient is enrolled in [facility] Medicare Advantage Plan;IMM addressed with Patient over the phone at room Ext. [phone] and because he is both Covid and Influenza (+), both the original and copy of IMM left on Patient's chart for his review at any time.
--- NOTE | 2022-10-19 09:22 | HO.PM.IMPN ---
Subjective Subjective Date of Service: 10/19/22 Review of Systems Follow-up COVID-19, influenza, failure to thrive, alcohol abuse Feeling a little bit better today, tremulous Physical Exam Vital Signs: Vital Signs: Last Vital Signs Temp 97.0 F 10/19/22 08:00 Pulse 77 10/19/22 08:00 Resp 20 10/19/22 08:00 BP 91/62 10/19/22 08:00 Pulse Ox 95 10/19/22 08:00 O2 Del Method 10/19/22 08:00 BMI result Body Mass Index 26.5 Appearing in no acute distress lung sounds are clear to auscultation heart regular rate rhythm, clear S1, S2 positive bowel sounds, abdomen is soft, nontender neuro patient is alert x3, no focal deficits Buttock cellulitis Objective Data Active Medications Acetaminophen (Acetaminophen 325 Mg Tablet) 650 mg PO Q6H PRN PRN Reason: Pain, Mild (Pain Scale 1-3) Bacitracin (Bacitracin Oint 14 Gm Tube) 1 appl TOPICAL BID [facility]; Protocol Last Admin: 10/19/22 08:54 Dose: 1 appl Documented By: JERMAIN Folic Acid (Folic Acid 1 Mg Tablet) 1 mg PO DAILY [facility] Last Admin: 10/19/22 08:53 Dose: 1 mg Documented By: JERMAIN Heparin Sodium (Porcine) (Heparin Sodium,Porcine 5,000 Unit/Ml Vial) 5,000 unit SUBCUT Q12H [facility] Last Admin: 10/19/22 05:04 Dose: 5,000 unit Documented By: FLORENCIO Ampicillin Sodium/Sulbactam (Sodium 3 gm/ Sodium Chloride) 100 mls @ 200 mls/hr IV Q6H [facility] Last Infusion: 10/19/22 06:17 Dose: 0 mls/hr Documented By: FLORENCIO Vancomycin HCl 1,000 mg/ (Sodium Chloride) 270 mls @ 270 mls/hr IV Q12H [facility] Last Infusion: 10/19/22 09:09 Dose: 0 mls/hr Documented By: JERMAIN Dextrose/Sodium Chloride (D5ns) 1,000 mls @ 100 mls/hr IVCONT .Q10H [facility] Last Admin: 10/19/22 03:38 Dose: 100 mls/hr Documented By: FLORENCIO Lisinopril (Lisinopril 10 Mg Tablet) 10 mg PO DAILY [facility]; Protocol Last Admin: 10/19/22 08:53 Dose: Not Given Documented By: JERMAIN Non-Admin Reason: BP Izzy MD aware Multivitamins/Vitamin C (Multivitamin Tablet) 1 tab PO DAILY [facility] Last Admin: 10/19/22 08:53 Dose: 1 tab Documented By: JERMAIN Oseltamivir Phosphate (Oseltamivir Phosphate 75 Mg Capsule) 75 mg PO Q12H [facility] Stop: 10/23/22 05:01 Last Admin: 10/19/22 05:04 Dose: 75 mg Documented By: FLORENCIO Pharmacy Consult (Consult Rx Perform Med Rec) 1 each MISCELLANE ONCE PRN PRN Reason: Consult order Pharmacy Consult (Consult Rx Etoh Phenob Im/Po) 1 each MISCELLANE ONCE PRN; Protocol PRN Reason: Consult order Pharmacy Consult (Consult Rx Vancomycin Dosing) 1 each MISCELLANE DAILY [facility] Phenobarbital (Phenobarbital 30 Mg Tablet) 60 mg PO BID [facility] Stop: 10/20/22 21:01 Last Admin: 10/19/22 08:53 Dose: Not Given Documented By: JERMAIN Non-Admin Reason: BP Izzy MD aware Phenobarbital (Phenobarbital 30 Mg Tablet) 30 mg PO BID [facility] Stop: 10/22/22 21:01 Phenobarbital (Phenobarbital 30 Mg Tablet) 30 mg PO DAILY [facility] Stop: 10/24/22 09:01 Sodium Chloride (0.9 % Sodium Chloride Flush 3 Ml Syringe) 3 ml IVFLUSH QSHIFT [facility] Last Admin: 10/19/22 07:47 Dose: Not Given Documented By: JERMAIN Non-Admin Reason: IV Running Thiamine HCl (Thiamine Hcl 100 Mg Tablet) 100 mg PO DAILY [facility] Last Admin: 10/19/22 08:53 Dose: 100 mg Documented By: JERMAIN Labs CBC & Chem 7: 10/19/22 05:52 10/19/22 05:52 Labs: Laboratory Results - last 24 hr 10/18/22 10/18/22 10/18/22 14:48 14:48 14:48 MCV MCH MCHC RDW Plt Count MPV Immature Gran % (Auto) Neut % (Auto) Lymph % (Auto) [place] % (Auto) Eos % (Auto) Baso % (Auto) Lymph # (Auto) [place] # (Auto) Eos # (Auto) Baso # (Auto) Abs Immat Gran (auto) Absolute Neuts (auto) Absolute Nucleated RBC Nucleated RBC % (auto) Smear Tech's Comments Anion Gap Estim Creat Clear Calc Estimated GFR Random Glucose Lactic Acid 2.3 H* Lactic Acid F/U @ 2Hr Calcium Magnesium Total Bilirubin Direct Bilirubin AST ALT Alkaline Phosphatase Total Creatine Kinase Troponin I High Sens 222.1 H* B-Natriuretic Peptide Total Protein Albumin Lipase Urine Color Dark Yellow Urine Appearance Clear Urine pH 5.5 Ur Specific [place] 1.025 Urine Protein Trace Urine Glucose (UA) Negative Urine Ketones 15 Urine Blood Negative Urine Nitrite Negative Ur Leukocyte Esterase Trace H Urine RBC 0-2 Urine WBC 6-10 H Ur Squamous Epith Cells 0-2 Urine Bacteria None Seen Hyaline Casts 0-2 Ethyl Alcohol Influenza Type A (PCR) Influenza Type B (PCR) RSV RNA Qual (PCR) SARS-CoV-2 RNA (RT-PCR) 10/18/22 10/18/22 10/18/22 14:49 14:49 14:49 MCV 93.0 MCH 33.0 MCHC 35.5 RDW 13.1 Plt Count 281 MPV 11.0 Immature Gran % (Auto) 1.3 H Neut % (Auto) 68.6 Lymph % (Auto) 20.3 [place] % (Auto) 9.5 Eos % (Auto) 0.0 Baso % (Auto) 0.3 Lymph # (Auto) 2.2 [place] # (Auto) 1.0 Eos # (Auto) 0.0 Baso # (Auto) 0.0 Abs Immat Gran (auto) 0.14 H Absolute Neuts (auto) 7.5 Absolute Nucleated RBC 0.000 Nucleated RBC % (auto) 0.0 Smear Tech's Comments VERIFIED Anion Gap 22 H Estim Creat Clear Calc 87.9 Estimated GFR > 60 Random Glucose 80 Lactic Acid Lactic Acid F/U @ 2Hr Calcium 8.6 D Magnesium 2.2 Total Bilirubin 0.9 Direct Bilirubin 0.6 H AST 221 H ALT 195 H Alkaline Phosphatase 143 H Total Creatine Kinase 810 H Troponin I High Sens B-Natriuretic Peptide 334 H Total Protein 5.9 L Albumin 2.8 L Lipase 24 Urine Color Urine Appearance Urine pH Ur Specific [place] Urine Protein Urine Glucose (UA) Urine Ketones Urine Blood Urine Nitrite Ur Leukocyte Esterase Urine RBC Urine WBC Ur Squamous Epith Cells Urine Bacteria Hyaline Casts Ethyl Alcohol Influenza Type A (PCR) Influenza Type B (PCR) RSV RNA Qual (PCR) SARS-CoV-2 RNA (RT-PCR) 10/18/22 10/18/22 10/18/22 14:49 14:52 17:39 MCV MCH MCHC RDW Plt Count MPV Immature Gran % (Auto) Neut % (Auto) Lymph % (Auto) [place] % (Auto) Eos % (Auto) Baso % (Auto) Lymph # (Auto) [place] # (Auto) Eos # (Auto) Baso # (Auto) Abs Immat Gran (auto) Absolute Neuts (auto) Absolute Nucleated RBC Nucleated RBC % (auto) Smear Tech's Comments Anion Gap Estim Creat Clear Calc Estimated GFR Random Glucose Lactic Acid Lactic Acid F/U @ 2Hr 1.3 Calcium Magnesium 2.2 Total Bilirubin Direct Bilirubin AST ALT Alkaline Phosphatase Total Creatine Kinase Troponin I High Sens B-Natriuretic Peptide Total Protein Albumin Lipase Urine Color Urine Appearance Urine pH Ur Specific [place] Urine Protein Urine Glucose (UA) Urine Ketones Urine Blood Urine Nitrite Ur Leukocyte Esterase Urine RBC Urine WBC Ur Squamous Epith Cells Urine Bacteria Hyaline Casts Ethyl Alcohol < 10 Influenza Type A (PCR) POSITIVE A Influenza Type B (PCR) NEGATIVE RSV RNA Qual (PCR) NEGATIVE SARS-CoV-2 RNA (RT-PCR) POSITIVE A 10/18/22 10/19/22 10/19/22 17:39 05:52 05:52 MCV 92.6 MCH 32.3 MCHC 34.8 RDW 13.2 Plt Count 223 MPV 11.2 Immature Gran % (Auto) Neut % (Auto) Lymph % (Auto) [place] % (Auto) Eos % (Auto) Baso % (Auto) Lymph # (Auto) [place] # (Auto) Eos # (Auto) Baso # (Auto) Abs Immat Gran (auto) Absolute Neuts (auto) Absolute Nucleated RBC 0.000 Nucleated RBC % (auto) 0.0 Smear Tech's Comments Anion Gap 16 Estim Creat Clear Calc 94.5 Estimated GFR > 60 Random Glucose 149 H Lactic Acid Lactic Acid F/U @ 2Hr Calcium 7.3 L D Magnesium 1.8 Total Bilirubin 0.8 Direct Bilirubin 0.4 AST 136 H ALT 130 H Alkaline Phosphatase 121 H D Total Creatine Kinase 394 H Troponin I High Sens 225.1 H* B-Natriuretic Peptide Total Protein 4.8 L D Albumin 2.2 L D Lipase Urine Color Urine Appearance Urine pH Ur Specific [place] Urine Protein Urine Glucose (UA) Urine Ketones Urine Blood Urine Nitrite Ur Leukocyte Esterase Urine RBC Urine WBC Ur Squamous Epith Cells Urine Bacteria Hyaline Casts Ethyl Alcohol Influenza Type A (PCR) Influenza Type B (PCR) RSV RNA Qual (PCR) SARS-CoV-2 RNA (RT-PCR) Assessment and Plan (1) Cellulitis of buttock: Status: Acute Plan 67-year-old man presented with failure to thrive and severe alcoholism, he drinks on a daily basis and was found his home extremely unkept Hypertension with low BP Stable blood pressure hold lisinopril Severe sepsis, multifactorial with cellulitis, COVID-19 and influenza. Sepsis resolved Hypothermia, tachycardia, lactic acidosis No hypotension, no need for 30 mL/kg fluid bolus at this time Blood cultures pending COVID 19/influenza a No hypoxia noted, no need for remdesivir or steroids at this time Chest x-ray showing lower lobe bronchiectasis with bronchial wall thickening suggestive of airway inflammation with airway infection Unasyn and vancomycin Tamiflu Supplemental oxygen Id consult Severe buttocks excoriation/cellulitis/stage 3 pressure ulcer Keep area clean stop bacitracin wound consult rec santyl and gen surg consult for debridement Continue vancomycin Failure to thrive Likely secondary to alcohol use Physical therapy consultation Addiction medicine consultation Add protein to diet, encourage oral intake Alcohol abuse Started on phenobarbital Addiction medicine consultation pending Folic acid, thiamine, multivitamin Elevated CPK.? 810 Patient found on the ground by his brother, unable to calculate how long he had been there Secondary to dehydration, fall IV fluids Transaminitis. Trending down Secondary to alcohol abuse Follow closely Elevated troponin. No delta No complaints of chest pain No ischemic changes on EKG Likely secondary to elevated CPK DVT prophylaxis with heparin Full code Attending Dr. Gonzalez continued hospitalization for treatment of influenza a and COVID-19 along with severe buttocks cellulitis and failure to thrive? Time Spent With Patient Time: Total time managing care of this patient today ____ minutes. Quality Stroke Does the patient have a stroke diagnosis?: No VTE Prior VTE?: No VTE Risk Level:: Medical - moderate - high VTE Device Contraindication: N/A - Device Ordered VTE Drug Contraindication: N/A - Med Ordered
--- NOTE | 2022-10-19 09:59 | MHC.CLN ---
RE: CONSULT PT WITH INCREASED NUTRITION RISK R/T PRESSURE INJURY POOR PO INTAKE [employer] DIET RX: 2GM NA -RECOMMEND REGULAR DIET TO INCREASE PO AND KCALS PT RECEIVING ENSURE TID PROVIDES 1050KCALS, 60G PROTEIN WITH 100% ACCEPTANCE MONITOR PO INTAKE AND SUPPLEMENT ACCEPTANCE CLOSELY SEE FULL CLINICAL NUTRITION ASSESSMENT
--- NOTE | 2022-10-19 12:59 | P.CONWO_ITS ---
History of Present Illness Data of Consult Service Date: 10/19/22 Requesting physician: Brittany Cesar Primary Care Provider: Winston Phipps MD HPI Reason for consult: dermatitis of the buttocks Chart reviewed. 67-year-old male with prolonged down time after being found surrounded by beer cans, unresponsive and incontinent of stool and urine. We are asked to evaluate bilateral buttock ulcers. Down time is not clear. CPK was 394. He is on IV vancomycin. Bacitracin was initially used over the buttocks. Infectious Disease consultation is pending. Discussed the case with Brittany Cesar NP who asks for topical recommendations. Tells me plan is likely subacute facility discharge. [facility] Medical History Hypertension Family History Father No problems noted. Mother Lung cancer Family/Other Lung cancer Throat cancer Surgical History History of lumbar laminectomy Social History Household Members: None Housing: Apartment Unable to assess alcohol history related to: Unable to respond Alcohol intake: current Alcohol intake frequency: 3 or more drinks per day Alcohol type: beer Patient Tobacco Use Status: Current everyday Tobacco user Tobacco use type: Cigarette Cigarette Packs Per Day: 1 Cigarettes Per Day: 20 Smoked in Last 30 Days: Yes e-Cigarette/Vaping Use: Never Used Patient Interested in Nicotine Replacement: No Patient Given Instructions on How to Stop Smoking: No Second Hand Smoke Exposure: Yes Use of substances other than those prescribed or required for medical reasons: Unable to respond Currently Displaying Signs/Symptoms of Drug Intoxication Withdrawal: No Have you been hit, kicked, punched, or otherwise hurt by someone within the past year? 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 Cognitive needs: No Hearing needs: No Vision needs: Yes Meds Allergies Allergy/AdvReac Type Severity Reaction Status Date / Time No Known Allergies Allergy Verified 05/20/22 10:27 Active Medications: Current Medications Acetaminophen (Acetaminophen 325 Mg Tablet) 650 mg PO Q6H PRN PRN Reason: Pain, Mild (Pain Scale 1-3) Bacitracin (Bacitracin Oint 14 Gm Tube) 1 appl TOPICAL BID [facility]; Protocol Last Admin: 10/19/22 08:54 Dose: 1 appl Folic Acid (Folic Acid 1 Mg Tablet) 1 mg PO DAILY [facility] Last Admin: 10/19/22 08:53 Dose: 1 mg Heparin Sodium (Porcine) (Heparin Sodium,Porcine 5,000 Unit/Ml Vial) 5,000 unit SUBCUT Q12H [facility] Last Admin: 10/19/22 05:04 Dose: 5,000 unit Ampicillin Sodium/Sulbactam (Sodium 3 gm/ Sodium Chloride) 100 mls @ 200 mls/hr IV Q6H [facility] Last Infusion: 10/19/22 11:20 Dose: Infused Vancomycin HCl 1,000 mg/ (Sodium Chloride) 270 mls @ 270 mls/hr IV Q12H [facility] Last Infusion: 10/19/22 09:09 Dose: Infused Dextrose/Sodium Chloride (D5ns) 1,000 mls @ 100 mls/hr IVCONT .Q10H [facility] Last Admin: 10/19/22 03:38 Dose: 100 mls/hr Lisinopril (Lisinopril 10 Mg Tablet) 10 mg PO DAILY [facility]; Protocol Last Admin: 10/19/22 08:53 Dose: Not Given Multivitamins/Vitamin C (Multivitamin Tablet) 1 tab PO DAILY [facility] Last Admin: 10/19/22 08:53 Dose: 1 tab Oseltamivir Phosphate (Oseltamivir Phosphate 75 Mg Capsule) 75 mg PO Q12H [facility] Stop: 10/23/22 05:01 Last Admin: 10/19/22 05:04 Dose: 75 mg Pharmacy Consult (Consult Rx Perform Med Rec) 1 each MISCELLANE ONCE PRN PRN Reason: Consult order Pharmacy Consult (Consult Rx Etoh Phenob Im/Po) 1 each MISCELLANE ONCE PRN; Protocol PRN Reason: Consult order Pharmacy Consult (Consult Rx Vancomycin Dosing) 1 each MISCELLANE DAILY [facility] Phenobarbital (Phenobarbital 30 Mg Tablet) 60 mg PO BID [facility] Stop: 10/20/22 21:01 Last Admin: 10/19/22 08:53 Dose: Not Given Phenobarbital (Phenobarbital 30 Mg Tablet) 30 mg PO BID [facility] Stop: 10/22/22 21:01 Phenobarbital (Phenobarbital 30 Mg Tablet) 30 mg PO DAILY [facility] Stop: 10/24/22 09:01 Sodium Chloride (0.9 % Sodium Chloride Flush 3 Ml Syringe) 3 ml IVFLUSH QSHIFT [facility] Last Admin: 10/19/22 07:47 Dose: Not Given Thiamine HCl (Thiamine Hcl 100 Mg Tablet) 100 mg PO DAILY [facility] Last Admin: 10/19/22 08:53 Dose: 100 mg Physical Exam Vital Signs and Narrative: Vital Signs: Last Vital Signs Temp 97.1 F 10/19/22 11:54 Pulse 90 10/19/22 11:54 Resp 22 H 10/19/22 11:54 BP 103/70 10/19/22 11:54 Pulse Ox 95 10/19/22 11:54 O2 Del Method 10/19/22 11:54 BMI result Body Mass Index 26.5 Photograph shows sloughy wound bases with healthy pink edges, sparing gluteal crevice. Results Labs CBC and Chem 7: 10/19/22 05:52 10/19/22 05:52 Labs: Laboratory Results - last 24 hr 10/18/22 10/18/22 10/18/22 14:48 14:48 14:48 MCV MCH MCHC RDW Plt Count MPV Immature Gran % (Auto) Neut % (Auto) Lymph % (Auto) Cross % (Auto) Eos % (Auto) Baso % (Auto) Lymph # (Auto) Cross # (Auto) Eos # (Auto) Baso # (Auto) Abs Immat Gran (auto) Absolute Neuts (auto) Absolute Nucleated RBC Nucleated RBC % (auto) Smear Tech's Comments Anion Gap Estim Creat Clear Calc Estimated GFR Random Glucose Lactic Acid 2.3 H* Lactic Acid F/U @ 2Hr Calcium Magnesium Total Bilirubin Direct Bilirubin AST ALT Alkaline Phosphatase Total Creatine Kinase Troponin I High Sens 222.1 H* B-Natriuretic Peptide Total Protein Albumin Lipase Urine Color Dark Yellow Urine Appearance Clear Urine pH 5.5 Ur Specific [place] 1.025 Urine Protein Trace Urine Glucose (UA) Negative Urine Ketones 15 Urine Blood Negative Urine Nitrite Negative Ur Leukocyte Esterase Trace H Urine RBC 0-2 Urine WBC 6-10 H Ur Squamous Epith Cells 0-2 Urine Bacteria None Seen Hyaline Casts 0-2 Ethyl Alcohol Influenza Type A (PCR) Influenza Type B (PCR) RSV RNA Qual (PCR) SARS-CoV-2 RNA (RT-PCR) 10/18/22 10/18/22 10/18/22 14:49 14:49 14:49 MCV 93.0 MCH 33.0 MCHC 35.5 RDW 13.1 Plt Count 281 MPV 11.0 Immature Gran % (Auto) 1.3 H Neut % (Auto) 68.6 Lymph % (Auto) 20.3 Cross % (Auto) 9.5 Eos % (Auto) 0.0 Baso % (Auto) 0.3 Lymph # (Auto) 2.2 Cross # (Auto) 1.0 Eos # (Auto) 0.0 Baso # (Auto) 0.0 Abs Immat Gran (auto) 0.14 H Absolute Neuts (auto) 7.5 Absolute Nucleated RBC 0.000 Nucleated RBC % (auto) 0.0 Smear Tech's Comments VERIFIED Anion Gap 22 H Estim Creat Clear Calc 87.9 Estimated GFR > 60 Random Glucose 80 Lactic Acid Lactic Acid F/U @ 2Hr Calcium 8.6 D Magnesium 2.2 Total Bilirubin 0.9 Direct Bilirubin 0.6 H AST 221 H ALT 195 H Alkaline Phosphatase 143 H Total Creatine Kinase 810 H Troponin I High Sens B-Natriuretic Peptide 334 H Total Protein 5.9 L Albumin 2.8 L Lipase 24 Urine Color Urine Appearance Urine pH Ur Specific [place] Urine Protein Urine Glucose (UA) Urine Ketones Urine Blood Urine Nitrite Ur Leukocyte Esterase Urine RBC Urine WBC Ur Squamous Epith Cells Urine Bacteria Hyaline Casts Ethyl Alcohol Influenza Type A (PCR) Influenza Type B (PCR) RSV RNA Qual (PCR) SARS-CoV-2 RNA (RT-PCR) 10/18/22 10/18/22 10/18/22 14:49 14:52 17:39 MCV MCH MCHC RDW Plt Count MPV Immature Gran % (Auto) Neut % (Auto) Lymph % (Auto) Cross % (Auto) Eos % (Auto) Baso % (Auto) Lymph # (Auto) Cross # (Auto) Eos # (Auto) Baso # (Auto) Abs Immat Gran (auto) Absolute Neuts (auto) Absolute Nucleated RBC Nucleated RBC % (auto) Smear Tech's Comments Anion Gap Estim Creat Clear Calc Estimated GFR Random Glucose Lactic Acid Lactic Acid F/U @ 2Hr 1.3 Calcium Magnesium 2.2 Total Bilirubin Direct Bilirubin AST ALT Alkaline Phosphatase Total Creatine Kinase Troponin I High Sens B-Natriuretic Peptide Total Protein Albumin Lipase Urine Color Urine Appearance Urine pH Ur Specific [place] Urine Protein Urine Glucose (UA) Urine Ketones Urine Blood Urine Nitrite Ur Leukocyte Esterase Urine RBC Urine WBC Ur Squamous Epith Cells Urine Bacteria Hyaline Casts Ethyl Alcohol < 10 Influenza Type A (PCR) POSITIVE A Influenza Type B (PCR) NEGATIVE RSV RNA Qual (PCR) NEGATIVE SARS-CoV-2 RNA (RT-PCR) POSITIVE A 10/18/22 10/19/22 10/19/22 17:39 05:52 05:52 MCV 92.6 MCH 32.3 MCHC 34.8 RDW 13.2 Plt Count 223 MPV 11.2 Immature Gran % (Auto) Neut % (Auto) Lymph % (Auto) Cross % (Auto) Eos % (Auto) Baso % (Auto) Lymph # (Auto) Cross # (Auto) Eos # (Auto) Baso # (Auto) Abs Immat Gran (auto) Absolute Neuts (auto) Absolute Nucleated RBC 0.000 Nucleated RBC % (auto) 0.0 Smear Tech's Comments Anion Gap 16 Estim Creat Clear Calc 94.5 Estimated GFR > 60 Random Glucose 149 H Lactic Acid Lactic Acid F/U @ 2Hr Calcium 7.3 L D Magnesium 1.8 Total Bilirubin 0.8 Direct Bilirubin 0.4 AST 136 H ALT 130 H Alkaline Phosphatase 121 H D Total Creatine Kinase 394 H Troponin I High Sens 225.1 H* B-Natriuretic Peptide Total Protein 4.8 L D Albumin 2.2 L D Lipase Urine Color Urine Appearance Urine pH Ur Specific [place] Urine Protein Urine Glucose (UA) Urine Ketones Urine Blood Urine Nitrite Ur Leukocyte Esterase Urine RBC Urine WBC Ur Squamous Epith Cells Urine Bacteria Hyaline Casts Ethyl Alcohol Influenza Type A (PCR) Influenza Type B (PCR) RSV RNA Qual (PCR) SARS-CoV-2 RNA (RT-PCR) Imaging Radiologist's Impressions: Impressions Chest X-Ray 10/18/22 14:35 IMPRESSION: Prominent bronchovascular markings at left perihilar and left lower lung field, may represent subtle interstitial pneumonia/viral pneumonia versus reactive airway disease. Follow-up radiograph to resolution is recommended. Abdomen/Pelvis CT 10/18/22 14:40 IMPRESSION: Asymmetric subcutaneous fat stranding in the left gluteal soft tissues with overlying skin thickening suggestive of cellulitis. Please note that the scrotum and gluteal soft tissues are incompletely imaged. No subcutaneous emphysema within the field of view to suggest necrotizing fasciitis. Lower lobe bronchiectasis with bronchial wall thickening suggesting airways inflammation. Patchy centrilobular nodules in the left lung base suggesting airways infection. Age-indeterminate inferior wedge compression deformity of the L1 vertebral body with approximately 50% height loss. Hepatic steatosis. A 1 cm indeterminate, intermediate attenuation right renal lesion for which differential considerations could include a hyperdense renal cyst or a small renal mass. CT renal mass protocol or MR with contrast is recommended for further evaluation. 4 mm solid left lower lobe pulmonary nodule. Assuming patient has no history of malignancy, recommend follow-up per Fleischner Society recommendations. According to the UPDATED 2017 Fleischner Society recommendations, the advised followup imaging for solid nodules < 6 mm is: LOW RISK PATIENT: No routine follow up. HIGH RISK PATIENT: Optional CT at 12 months. Assessment and Plan (1) Rhabdomyolysis: Status: Acute Plan Agree that Santyl is a reasonable option to help with slough, likely for short- term use. This is likely to increase drainage and so absorbent secondary dressings are most appropriate. Zinc oxide around the wound edges to protect surrounding tissues from maceration is jiménez. Might benefit from surgical consultation for sharp mechanical debridement if desired. Time Spent With Patient Time: Total time managing care of this patient today ____ minutes.
--- NOTE | 2022-10-19 14:47 | P.CNID_ITS ---
History of Present Illness Data of Consult Service Date: 10/19/22 Requesting physician: Brittany Cesar Primary Care Provider: Winston Phipps MD HPI Reason for consult: buttock ulcer,flu,COVID He presents after being found down in home surrounded by beer cans. He has flu and COVID positive and buttock wound ?pressure. He has been seen by Wound Care and possible surgical debridement suggested. Review of Systems Review of Systems: Yes Unobtainable due to mental condition PMFSH Past Medical History Medical History Hypertension Family History Family History Father No problems noted. Mother Lung cancer Family/Other Lung cancer Throat cancer Family history: reviewed and not pertinent Surgical History Surgical History History of lumbar laminectomy Social History Social History Household Members: None Housing: Apartment Unable to assess alcohol history related to: Unable to respond Alcohol intake: current Alcohol intake frequency: 3 or more drinks per day Alcohol type: beer Patient Tobacco Use Status: Current everyday Tobacco user Tobacco use type: Cigarette Cigarette Packs Per Day: 1 Cigarettes Per Day: 20 Smoked in Last 30 Days: Yes e-Cigarette/Vaping Use: Never Used Patient Interested in Nicotine Replacement: No Patient Given Instructions on How to Stop Smoking: No Second Hand Smoke Exposure: Yes Use of substances other than those prescribed or required for medical reasons: Unable to respond Currently Displaying Signs/Symptoms of Drug Intoxication Withdrawal: No Have you been hit, kicked, punched, or otherwise hurt by someone within the past year? 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 Cognitive needs: No Hearing needs: No Vision needs: Yes Meds Allergies Allergy/AdvReac Type Severity Reaction Status Date / Time No Known Allergies Allergy Verified 05/20/22 10:27 Active Medications: Current Medications Acetaminophen (Acetaminophen 325 Mg Tablet) 650 mg PO Q6H PRN PRN Reason: Pain, Mild (Pain Scale 1-3) Bacitracin (Bacitracin Oint 14 Gm Tube) 1 appl TOPICAL BID [facility]; Protocol Last Admin: 10/19/22 08:54 Dose: 1 appl Folic Acid (Folic Acid 1 Mg Tablet) 1 mg PO DAILY [facility] Last Admin: 10/19/22 08:53 Dose: 1 mg Heparin Sodium (Porcine) (Heparin Sodium,Porcine 5,000 Unit/Ml Vial) 5,000 unit SUBCUT Q12H [facility] Last Admin: 10/19/22 05:04 Dose: 5,000 unit Ampicillin Sodium/Sulbactam (Sodium 3 gm/ Sodium Chloride) 100 mls @ 200 mls/hr IV Q6H [facility] Last Infusion: 10/19/22 11:20 Dose: Infused Vancomycin HCl 1,000 mg/ (Sodium Chloride) 270 mls @ 270 mls/hr IV Q12H [facility] Last Infusion: 10/19/22 09:09 Dose: Infused Dextrose/Sodium Chloride (D5ns) 1,000 mls @ 100 mls/hr IVCONT .Q10H [facility] Last Admin: 10/19/22 13:36 Dose: 100 mls/hr Lisinopril (Lisinopril 10 Mg Tablet) 10 mg PO DAILY [facility]; Protocol Last Admin: 10/19/22 08:53 Dose: Not Given Multivitamins/Vitamin C (Multivitamin Tablet) 1 tab PO DAILY [facility] Last Admin: 10/19/22 08:53 Dose: 1 tab Oseltamivir Phosphate (Oseltamivir Phosphate 75 Mg Capsule) 75 mg PO Q12H [facility] Stop: 10/23/22 05:01 Last Admin: 10/19/22 05:04 Dose: 75 mg Pharmacy Consult (Consult Rx Perform Med Rec) 1 each MISCELLANE ONCE PRN PRN Reason: Consult order Pharmacy Consult (Consult Rx Etoh Phenob Im/Po) 1 each MISCELLANE ONCE PRN; Protocol PRN Reason: Consult order Pharmacy Consult (Consult Rx Vancomycin Dosing) 1 each MISCELLANE DAILY [facility] Phenobarbital (Phenobarbital 30 Mg Tablet) 60 mg PO BID [facility] Stop: 10/20/22 21:01 Last Admin: 10/19/22 08:53 Dose: Not Given Phenobarbital (Phenobarbital 30 Mg Tablet) 30 mg PO BID [facility] Stop: 10/22/22 21:01 Phenobarbital (Phenobarbital 30 Mg Tablet) 30 mg PO DAILY [facility] Stop: 10/24/22 09:01 Sodium Chloride (0.9 % Sodium Chloride Flush 3 Ml Syringe) 3 ml IVFLUSH QSHIFT [facility] Last Admin: 10/19/22 07:47 Dose: Not Given Thiamine HCl (Thiamine Hcl 100 Mg Tablet) 100 mg PO DAILY [facility] Last Admin: 10/19/22 08:53 Dose: 100 mg Physical Exam Vital Signs: Vital Signs: Last Vital Signs Temp 97.1 F 10/19/22 11:54 Pulse 90 10/19/22 11:54 Resp 22 H 10/19/22 11:54 BP 103/70 10/19/22 11:54 Pulse Ox 95 10/19/22 11:54 O2 Del Method 10/19/22 11:54 BMI result Body Mass Index 26.5 Const: General: cooperative HEENT: Head: Yes normal to inspection Face and sinus: Yes normal facial exam Mouth: Normal oral and palatal mucosa present Teeth and gingiva: dentition normal Eyes: General: appearance normal, both eyes and all related structures Pupils: Equal, round and reactive pupils present Resp: Effort & Inspection: normal respiratory effort Cardio: Rate: regular rate Rhythm: regular rhythm GI: Palpation (GI): Soft to palpation and nontender : General: Yes no CVA tenderness Back/Spine/Pelvis: Back: no CVA tenderness Skin: General skin exam: no rashes or lesions noted Neuro: General: moves all extremities Cranial nerves: Yes Equal, round and reactive pupils present Extrem: General: Yes normal to inspection Psych: Appearance: grossly normal Results Labs CBC & Chem 7: 10/19/22 05:52 10/19/22 05:52 Labs: Short CBC 10/18/22 10/19/22 Range/Units 14:49 05:52 WBC 10.9 H 11.8 H (4.8-10.8) X10*3/uL Hgb 15.5 13.1 L (14.0-18.0) g/dl Hct 43.7 37.6 L (42.0-52.0) % Plt Count 281 223 (160-400) X10*3/uL BMP 10/18/22 10/19/22 14:49 05:52 Sodium 141 144 Potassium 4.8 3.3 D Chloride 97 107 Carbon Dioxide 27 24 BUN 37 H 27 H Creatinine 1.04 0.88 Calcium 8.6 D 7.3 L D Cardiac Enzymes 10/18/22 10/19/22 Range/Units 14:49 05:52 Total Creatine Kinase 810 H 394 H (38-174) U/L Liver Function 10/18/22 10/19/22 Range/Units 14:49 05:52 Total Bilirubin 0.9 0.8 (0.0-1.0) mg/dL Direct Bilirubin 0.6 H 0.4 (0.0-0.5) mg/dL AST 221 H 136 H (5-37) U/L ALT 195 H 130 H (0-40) U/L Alkaline Phosphatase 143 H 121 H D (39-117) U/L Albumin 2.8 L 2.2 L D (3.5-5.0) g/dL Urine 10/18/22 Range/Units 14:48 Urine Color Dark Yellow Urine Appearance Clear Urine pH 5.5 (5.0-9.0) Ur Specific [place] 1.025 (1.005-1.025) Urine Protein Trace (Neg-Trace) mg/dL Urine Glucose (UA) Negative (Negative) mg/dL Microbiology Microbiology Results: Microbiology 10/18/22 15:17 Urine clean catch - Urine rivas top Urine Culture - Final No growth. Assessment and Plan (1) Rhabdomyolysis: Status: Acute (2) Cellulitis of buttock: Status: Acute He has possible gram negative,anerobe,gram positive cellulitis with no deep bone involvement at this time (3) COVID-19 virus infection: Status: Acute not hypoxic ,unknown duration (4) Influenza A: Status: Acute (5) Elevated troponin level: Status: Acute Plan Continue Unasyn and Vancomycin pending cultures,debridement cultures ?depth of area/improvement determines length of IV ?5-7 d Continue Tamiflu five day. No COVID treatment with steroids due to no hypoxia,no preventive Remdesivir due to elevated LFTs and unknown duration COVID. COVID/flu respiratory isolation. Time Spent With Patient Time: Total time managing care of this patient today ____ minutes.
[2022-10-19] MEDS: PHENobarbitaL 30 MG TABLET 60 MG PO (21:07)
[2022-10-20 03:45] VITALS: BP 113/67; PULSE 87; RESP 20; TEMP 37; O2SAT 98
[2022-10-20] MEDS: Heparin Sodium,Porcine 5,000 UNIT/ML VIAL 5000 UNIT SUBCUT ×2 (06:02→17:21)
[2022-10-20] MEDS: Oseltamivir Phosphate 75 MG CAPSULE PO ×2 (06:02→17:21)
[2022-10-20 07:06] LABS: Vancomycin Trough 18.8 mcg/mL (10.0-20.0)
[2022-10-20 07:15] LABS: Creatinine Clr Calc Pharmacy 112.4; Estimated Glomerular Filt Rate > 60
[2022-10-20] MEDS: Folic Acid 1 MG TABLET PO (07:43)
[2022-10-20] MEDS: lisinopriL 10 MG TABLET PO (07:43)
[2022-10-20] MEDS: Thiamine HCL 100 MG TABLET PO (07:43)
[2022-10-20] MEDS: Multivitamin TABLET 1 TAB PO (07:43)
[2022-10-20] MEDS: PHENobarbitaL 30 MG TABLET 60 MG PO ×2 (07:43→21:36)
[2022-10-20] MEDS: Collagenase Clostridium Hist. 30 GM TUBE 1 APPL TOPICAL (07:44)
[2022-10-20 07:49] VITALS: BP 96/57; PULSE 81; RESP 20; TEMP 36.5; O2SAT 95
--- NOTE | 2022-10-20 11:42 | P.PNIM_ITS ---
Subjective Subjective Date of Service: 10/20/22 Review of Systems Follow-up COVID-19, influenza, failure to thrive, alcohol abuse Feeling a little bit better today, tremulous Physical Exam Vital Signs: Vital Signs: Last Vital Signs Temp 97.7 F 10/20/22 07:49 Pulse 81 10/20/22 07:49 Resp 20 10/20/22 07:49 BP 96/57 L 10/20/22 07:49 Pulse Ox 95 10/20/22 07:49 O2 Del Method 10/20/22 07:49 BMI result Body Mass Index 26.5 Appearing in no acute distress lung sounds are clear to auscultation heart regular rate rhythm, clear S1, S2 positive bowel sounds, abdomen is soft, nontender neuro patient is alert x3, no focal deficits Objective Data Active Medications Acetaminophen (Acetaminophen 325 Mg Tablet) 650 mg PO Q6H PRN PRN Reason: Pain, Mild (Pain Scale 1-3) Bacitracin (Bacitracin Oint 14 Gm Tube) 1 appl TOPICAL BID [facility]; Protocol Last Admin: 10/20/22 07:44 Dose: 1 appl Documented By: ALONZO Collagenase (Collagenase Clostridium Hist. 30 Gm Tube) 1 appl TOPICAL DAILY [facility]; Protocol Last Admin: 10/20/22 07:44 Dose: 1 appl Documented By: ALONZO Folic Acid (Folic Acid 1 Mg Tablet) 1 mg PO DAILY [facility] Last Admin: 10/20/22 07:43 Dose: 1 mg Documented By: ALONZO Heparin Sodium (Porcine) (Heparin Sodium,Porcine 5,000 Unit/Ml Vial) 5,000 unit SUBCUT Q12H [facility] Last Admin: 10/20/22 06:02 Dose: 5,000 unit Documented By: NIRAJ Ampicillin Sodium/Sulbactam (Sodium 3 gm/ Sodium Chloride) 100 mls @ 200 mls/hr IV Q6H [facility] Last Infusion: 10/20/22 11:04 Dose: 0 mls/hr Documented By: ALONZO Vancomycin HCl 1,000 mg/ (Sodium Chloride) 270 mls @ 270 mls/hr IV Q12H [facility] Last Infusion: 10/20/22 08:49 Dose: 0 mls/hr Documented By: ALONZO Dextrose/Sodium Chloride (D5ns) 1,000 mls @ 100 mls/hr IVCONT .Q10H [facility] Last Admin: 10/20/22 10:29 Dose: 100 mls/hr Documented By: ALONZO Lisinopril (Lisinopril 10 Mg Tablet) 10 mg PO DAILY [facility]; Protocol Last Admin: 10/20/22 07:43 Dose: 10 mg Documented By: ALONZO Multivitamins/Vitamin C (Multivitamin Tablet) 1 tab PO DAILY [facility] Last Admin: 10/20/22 07:43 Dose: 1 tab Documented By: ALONZO Oseltamivir Phosphate (Oseltamivir Phosphate 75 Mg Capsule) 75 mg PO Q12H [facility] Stop: 10/23/22 05:01 Last Admin: 10/20/22 06:02 Dose: 75 mg Documented By: NIRAJ Pharmacy Consult (Consult Rx Perform Med Rec) 1 each MISCELLANE ONCE PRN PRN Reason: Consult order Pharmacy Consult (Consult Rx Etoh Phenob Im/Po) 1 each MISCELLANE ONCE PRN; Protocol PRN Reason: Consult order Pharmacy Consult (Consult Rx Vancomycin Dosing) 1 each MISCELLANE DAILY [facility] Phenobarbital (Phenobarbital 30 Mg Tablet) 60 mg PO BID [facility] Stop: 10/20/22 21:01 Last Admin: 10/20/22 07:43 Dose: 60 mg Documented By: ALONZO Phenobarbital (Phenobarbital 30 Mg Tablet) 30 mg PO BID [facility] Stop: 10/22/22 21:01 Phenobarbital (Phenobarbital 30 Mg Tablet) 30 mg PO DAILY [facility] Stop: 10/24/22 09:01 Sodium Chloride (0.9 % Sodium Chloride Flush 3 Ml Syringe) [facility] Last Admin: 10/20/22 07:43 Dose: Not Given Documented By: ALONZO Non-Admin Reason: IV Running Thiamine HCl (Thiamine Hcl 100 Mg Tablet) 100 mg PO DAILY [facility] Last Admin: 10/20/22 07:43 Dose: 100 mg Documented By: ALONZO Labs CBC & Chem 7: 10/19/22 05:52 10/20/22 06:16 Labs: Laboratory Results - last 24 hr 10/20/22 10/20/22 06:16 06:16 Estim Creat Clear Calc 112.4 Estimated GFR > 60 Vancomycin Trough 18.8 Microbiology Microbiology Results: Microbiology 10/18/22 15:26 Blood Culture - Preliminary Blood - Venous No growth after 24 hours. 10/18/22 14:49 Blood Culture - Preliminary Blood - Venous No growth after 24 hours. 10/18/22 15:17 Urine Culture - Final Urine clean catch - Urine rivas top No growth. Assessment and Plan (1) Cellulitis of buttock: Status: Acute Plan 67-year-old man presented with failure to thrive and severe alcoholism, he drinks on a daily basis and was found his home extremely unkept Hypertension with low BP Stable blood pressure hold lisinopril continue fluids Severe sepsis, multifactorial with cellulitis, COVID-19 and influenza. Sepsis resolved Hypothermia, tachycardia, lactic acidosis No hypotension, no need for 30 mL/kg fluid bolus at this time Blood cultures pending COVID 19/influenza a No hypoxia noted, no need for remdesivir or steroids at this time Chest x-ray showing lower lobe bronchiectasis with bronchial wall thickening suggestive of airway inflammation with airway infection continue Unasyn and vancomycin as per ID 5-7 days >day 3 Tamiflu 5 days Supplemental oxygen Id following Severe buttocks excoriation/cellulitis/stage 3 pressure ulcer Keep area clean stop bacitracin wound consult rec santyl gen surg rec continue chemical debridement Continue vancomycin and unasyn Failure to thrive Likely secondary to alcohol use Physical therapy consultation Addiction medicine consultation Add protein to diet, encourage oral intake Alcohol abuse Started on phenobarbital Addiction medicine consultation pending Folic acid, thiamine, multivitamin Elevated CPK.? 810 Patient found on the ground by his brother, unable to calculate how long he had been there Secondary to dehydration, fall IV fluids Transaminitis. Trending down Secondary to alcohol abuse Follow closely Elevated troponin. No delta No complaints of chest pain No ischemic changes on EKG Likely secondary to elevated CPK DVT prophylaxis with heparin Full code Attending Dr. Gonzalez continued hospitalization for treatment of influenza a and COVID-19 along with severe buttocks cellulitis and failure to thrive? Time Spent With Patient Time: Total time managing care of this patient today ____ minutes. Quality Stroke Does the patient have a stroke diagnosis?: No VTE Prior VTE?: No VTE Risk Level:: Medical - moderate - high VTE Device Contraindication: N/A - Device Ordered VTE Drug Contraindication: N/A - Med Ordered
[2022-10-20 11:44] VITALS: BP 95/61; PULSE 93; RESP 20; TEMP 36.4; O2SAT 94
--- NOTE | 2022-10-20 12:44 | P.CDIC_ITS ---
CDI Concurrent Query Documentation Clarification: PHYSICIAN'S DOCUMENTATION REQUEST Date of Query: 10/20/22 2299 Patient Name: Hari Page Admit Date: 10/18/22 Dear Doctor, A review of the medical record indicates additional documentation may be needed. Please review below and update the documentation accordingly. Risk Factors/Clinical Indicators/Treatments Per MD progress note 10/20/22: Severe buttocks excoriation/cellulitis/stage 3 pressure ulcer Keep area clean stop bacitracin wound consult rec santyl gen surg rec continue chemical debridement Continue vancomycin and unasyn Based on the above, could you clarify in the Progress Notes the appropriate diagnosis, if significant, that supports the above abnormalities and additional evaluation, monitoring, and/or treatment rendered: * Cellulitis of left buttock with stage 3 pressure ulcer * Cellulitis of right buttock with stage 3 pressure ulcer * Cellulitis of bilateral buttocks with stage 3 pressure ulcers * Other (please specify) * Unable to determine Use of terms such as suspected, likely, concern for, or probable (associated with a specific diagnosis that is being evaluated, monitored, or treated as if it exists) are acceptable and can be coded in the inpatient setting, when documented at the time of discharge. Thank you, Eula Barillas RN Extension: [phone] Please use your independent medical judgment in providing your response. THIS QUERY IS PART OF THE PERMANENT MEDICAL RECORD Other Diagnosis: see note thats says stage 3 pressure ulcer
--- NOTE | 2022-10-20 14:21 | MHC.RECOVRN ---
This automobile service writer met w/ pt, pt was awake, laying in bed on right side. Pt states feels sore all over, pt requesting to just lay down. This automobile service writer attempted to obtain information about ETOH use. Patients response was I'm not sure to this writers questions. Patient did estimate daily ETOH use, estimated 3 beers, pt states I really don't know though . T/W attempted CIWA, asked if patient had headache, nausea, sensitivity to light, pt response unsure, I don't know . Patient visibly tremulous.
[2022-10-20 16:00] VITALS: BP 105/67; PULSE 95; RESP 22; TEMP 37.6; O2SAT 93
[2022-10-20 19:58] VITALS: BP 103/56; PULSE 106; RESP 22; TEMP 36.4; O2SAT 93
[2022-10-20 23:34] VITALS: BP 116/72; PULSE 80; RESP 20; TEMP 36.9; O2SAT 96
[2022-10-21 03:29] VITALS: BP 126/68; PULSE 90; RESP 32; TEMP 37.5; O2SAT 95
[2022-10-21 05:20] LABS: Anion Gap 10 (12-20); Blood Urea Nitrogen 13 mg/dL (9-16); Carbon Dioxide 26 mmol/L (22-29); Chloride 116 mmol/L (96-108); Creatinine Clr Calc Pharmacy 110.9; Estimated Glomerular Filt Rate > 60; Glucose Random 126 mg/dL (60-115); Potassium 3.1 mmol/L (3.3-5.1); Sodium 149 mmol/L (135-145)
[2022-10-21 05:25] LABS: Vancomycin Random 20.4 mcg/mL (15-20)
[2022-10-21] MEDS: Heparin Sodium,Porcine 5,000 UNIT/ML VIAL 5000 UNIT SUBCUT ×2 (06:30→09:03)
[2022-10-21] MEDS: Oseltamivir Phosphate 75 MG CAPSULE PO ×2 (06:30→16:51)
--- NOTE | 2022-10-21 06:35 | HE.PHANOTE ---
RE: vanco Trough on 10/21/22 came back at 20.4mg/L. Skipping am dose and continuing @1900 with 750mg Q12H, predicted AUC 428mg/L. Renal function is steady. Next level to be drawn after two more doses on 10/22/22 @1700.
[2022-10-21 07:48] VITALS: BP 143/82; PULSE 89; RESP 20; TEMP 36.4; O2SAT 95
[2022-10-21 08:21] LABS: Magnesium 1.6 mg/dL (1.6-2.6)
[2022-10-21] MEDS: lisinopriL 10 MG TABLET PO (09:04)
[2022-10-21] MEDS: Potassium Chloride ER 20 MEQ TAB.ER.PRT 40 MEQ PO (09:04)
[2022-10-21] MEDS: Thiamine HCL 100 MG TABLET PO (09:04)
[2022-10-21] MEDS: PHENobarbitaL 30 MG TABLET PO ×2 (09:04→20:13)
[2022-10-21] MEDS: Folic Acid 1 MG TABLET PO (09:04)
[2022-10-21] MEDS: Multivitamin TABLET 1 TAB PO (09:04)
[2022-10-21] MEDS: Collagenase Clostridium Hist. 30 GM TUBE 1 APPL TOPICAL (09:05)
--- NOTE | 2022-10-21 11:28 | P.PNIM_ITS ---
Subjective Subjective Date of Service: 10/21/22 Interval History: seen and examined this morning follow up for covid 19, flu reports breathing is ok having some cough Review of Systems Review of Systems: Yes all other systems are reviewed and are negative Constitutional Constitutional: Denies chills and Denies fever(s) Cardiovascular Cardiovascular: Denies chest pain, Denies palpitations and Denies dyspnea Respiratory Respiratory: Reports cough and Denies dyspnea Gastrointestinal Gastrointestinal: Denies abdominal pain Endocrine Endocrine: Denies palpitations Physical Exam Vital Signs: Vital Signs: Last Vital Signs Temp 97.6 F 10/21/22 07:48 Pulse 89 10/21/22 07:48 Resp 20 10/21/22 07:48 BP 143/82 H 10/21/22 07:48 Pulse Ox 95 10/21/22 07:48 O2 Del Method 10/21/22 07:48 BMI result Body Mass Index 26.5 Const: General: comfortable, no acute distress, alert and awake Nutritional Appearance: overweight Resp: Other: diminished breath sounds, normal respiratory effort Effort & Inspection: normal respiratory effort, able to speak in complete sentences and no respiratory distress Cardio: Rate: regular rate Heart sounds: S1 normal heart sound present and S2 normal heart sound present GI: Inspection: No distended Palpation (GI): Soft to palpation Skin: Other: left hip wound covered in clean/intact dressing Neuro: Other: grossly nonfocal Extrem: Other: b/l 1+ leg edema Objective Data Active Medications Acetaminophen (Acetaminophen 325 Mg Tablet) 650 mg PO Q6H PRN PRN Reason: Pain, Mild (Pain Scale 1-3) Bacitracin (Bacitracin Oint 14 Gm Tube) 1 appl TOPICAL BID [facility]; Protocol Last Admin: 10/21/22 09:05 Dose: 1 appl Documented By: CHANDA Collagenase (Collagenase Clostridium Hist. 30 Gm Tube) 1 appl TOPICAL DAILY [facility]; Protocol Last Admin: 10/21/22 09:05 Dose: 1 appl Documented By: CHANDA Folic Acid (Folic Acid 1 Mg Tablet) 1 mg PO DAILY [facility] Last Admin: 10/21/22 09:04 Dose: 1 mg Documented By: CHANDA Heparin Sodium (Porcine) (Heparin Sodium,Porcine 5,000 Unit/Ml Vial) 5,000 unit SUBCUT Q12H [facility] Last Admin: 10/21/22 09:03 Dose: 5,000 unit Documented By: CHANDA Ampicillin Sodium/Sulbactam (Sodium 3 gm/ Sodium Chloride) 100 mls @ 200 mls/hr IV Q6H [facility] Last Infusion: 10/21/22 07:43 Dose: 0 mls/hr Documented By: CHANDA Vancomycin HCl 750 mg/ Sodium (Chloride) 265 mls @ 265 mls/hr IV Q12H [facility] Dextrose (D5w) 1,000 mls @ 80 mls/hr IVCONT .[id number] [facility] Lisinopril (Lisinopril 10 Mg Tablet) 10 mg PO DAILY [facility]; Protocol Last Admin: 10/21/22 09:04 Dose: 10 mg Documented By: CHANDA Multivitamins/Vitamin C (Multivitamin Tablet) 1 tab PO DAILY [facility] Last Admin: 10/21/22 09:04 Dose: 1 tab Documented By: CHANDA Oseltamivir Phosphate (Oseltamivir Phosphate 75 Mg Capsule) 75 mg PO Q12H [facility] Stop: 10/23/22 05:01 Last Admin: 10/21/22 06:30 Dose: 75 mg Documented By: TOREY Pharmacy Consult (Consult Rx Perform Med Rec) 1 each MISCELLANE ONCE PRN PRN Reason: Consult order Pharmacy Consult (Consult Rx Etoh Phenob Im/Po) 1 each MISCELLANE ONCE PRN; Protocol PRN Reason: Consult order Pharmacy Consult (Consult Rx Vancomycin Dosing) 1 each MISCELLANE DAILY [facility] Phenobarbital (Phenobarbital 30 Mg Tablet) 30 mg PO BID [facility] Stop: 10/22/22 21:01 Last Admin: 10/21/22 09:04 Dose: 30 mg Documented By: CHANDA Phenobarbital (Phenobarbital 30 Mg Tablet) 30 mg PO DAILY [facility] Stop: 10/24/22 09:01 Sodium Chloride (0.9 % Sodium Chloride Flush 3 Ml Syringe) 3 ml IVFLUSH QSHIFT [facility] Last Admin: 10/21/22 09:03 Dose: 3 ml Documented By: CHANDA Thiamine HCl (Thiamine Hcl 100 Mg Tablet) 100 mg PO DAILY [facility] Last Admin: 10/21/22 09:04 Dose: 100 mg Documented By: CHANDA Labs CBC & Chem 7: 10/19/22 05:52 10/21/22 04:58 Labs: Laboratory Results - last 24 hr 10/21/22 10/21/22 04:58 04:58 Anion Gap 10 L Estim Creat Clear Calc 110.9 Estimated GFR > 60 Random Glucose 126 H Calcium 7.0 L Magnesium 1.6 Random Vancomycin 20.4 H Microbiology Microbiology Results: Microbiology 10/18/22 15:26 Blood Culture - Preliminary Blood - Venous No growth after 48 hours. 10/18/22 14:49 Blood Culture - Preliminary Blood - Venous No growth after 48 hours. Assessment and Plan (1) Hypokalemia: Status: Acute (2) Rhabdomyolysis: Status: Acute (3) Cellulitis of buttock: Status: Acute (4) Alcohol withdrawal: Status: Acute (5) COVID-19 virus infection: Status: Acute (6) Influenza A: Status: Acute Plan 67-year-old man presented with failure to thrive and severe alcoholism, he drinks on a daily basis and was found his home extremely unkept h/o Hypertension BP had been low bp improved today continue lisinopril continue IVF Severe sepsis, multifactorial with cellulitis, COVID-19 and influenza. Sepsis resolved Hypothermia, tachycardia, lactic acidosis No hypotension, no need for 30 mL/kg fluid bolus at this time Blood cultures negative to date COVID 19/influenza a No hypoxia noted, no need for remdesivir or steroids at this time Chest x-ray showing lower lobe bronchiectasis with bronchial wall thickening suggestive of airway inflammation with airway infection continue Unasyn and vancomycin as per ID 5-7 days, on day 4 Tamiflu 5 days not requiring supplemental oxygen ID following Severe buttocks excoriation/cellulitis/stage 3 pressure ulcer Keep area clean stop bacitracin wound consult rec santyl gen surg rec continue chemical debridement Continue vancomycin and unasyn Hypernatremia sodium 149, will change IVF Hypokalemia k 3.1, will replace check magnesium follow BMP Failure to thrive Likely secondary to alcohol use Physical therapy consultation- rec STR Add protein to diet, encourage oral intake Alcohol use disorder continue phenobarbital Addiction medicine consultation pending, seen by recovery team continue Folic acid, thiamine, multivitamin Elevated CPK Patient found on the ground, unable to determine how long he had been there Secondary to dehydration, fall CPK trending down Transaminitis. Trending down Secondary to alcohol abuse Follow closely Elevated troponin. No delta No complaints of chest pain No ischemic changes on EKG Likely secondary to elevated CPK right renal lesion seen on CT - recommend outpatient CT with renal mass protocol vs MR with contrast for further characterization DVT prophylaxis with heparin Full code Attending Dr. Gonzalez Dispo: PT rec STR continued hospitalization for treatment of influenza a and COVID-19 along with severe buttocks cellulitis and failure to thrive? Time Spent With Patient Time: Total time managing care of this patient today ____ minutes. Quality Stroke Does the patient have a stroke diagnosis?: No VTE Prior VTE?: No VTE Risk Level:: Medical - moderate - high VTE Device Contraindication: N/A - Device Ordered VTE Drug Contraindication: N/A - Med Ordered
[2022-10-21 11:39] VITALS: BP 139/98; PULSE 85; RESP 20; TEMP 36.2; O2SAT 96
--- NOTE | 2022-10-21 11:58 | MHC.CLN ---
F/U PO INTAKE: 25% X 3 MEALS DIET RX: REGULAR DIET -APPROPRIATE PT RECEIVING ENSURE TID PROVIDES 1050KCALS, 60G PROTEIN WITH 100% ACCEPTANCE MONITOR PO INTAKE AND ENCOURAGE SUPPLEMENT
[2022-10-21] MEDS: Magnesium Sulfate/H2O 2 GM/50 ML PIGGYBACK IV (13:49)
[2022-10-21] MEDS: Dextrose 5 % 1,000 ML 80 ML IVCONT (13:52)
[2022-10-21 15:14] VITALS: BP 130/76; PULSE 85; RESP 20; TEMP 36.6; O2SAT 93
[2022-10-21] MEDS: vancomycin HCL 750 MG in 0.9 % Sodium Chloride 250 ML 265 MG IV (18:17)
[2022-10-21 19:14] VITALS: BP 130/70; PULSE 80; RESP 20; TEMP 36.6; O2SAT 98
[2022-10-21 23:15] VITALS: BP 165/86; PULSE 80; RESP 20; TEMP 36.4; O2SAT 95
[2022-10-22] MEDS: Dextrose 5 % 1,000 ML 80 ML IVCONT (03:05)
[2022-10-22 03:13] VITALS: BP 141/75; PULSE 84; RESP 19; TEMP 36.4; O2SAT 94
[2022-10-22] MEDS: Oseltamivir Phosphate 75 MG CAPSULE PO ×2 (05:59→19:01)
[2022-10-22] MEDS: Heparin Sodium,Porcine 5,000 UNIT/ML VIAL 5000 UNIT SUBCUT ×2 (05:59→18:58)
[2022-10-22 06:55] LABS: Alanine Aminotransferase 62 U/L (0-40); Albumin Level 1.9 g/dL (3.5-5.0); Alkaline Phosphatase 114 U/L (39-117); Anion Gap 9 (12-20); Aspartate Amino Transferase 56 U/L (5-37); Bilirubin Direct 0.3 mg/dL (0.0-0.5); Bilirubin Total 0.6 mg/dL (0.0-1.0); Blood Urea Nitrogen 9 mg/dL (9-16); Carbon Dioxide 25 mmol/L (22-29); Chloride 112 mmol/L (96-108); Creatinine Clr Calc Pharmacy 122.3; Estimated Glomerular Filt Rate > 60; Glucose Random 86 mg/dL (60-115); Potassium 3.7 mmol/L (3.3-5.1); Sodium 142 mmol/L (135-145); Total Protein 4.6 g/dL (6.5-8.0)
[2022-10-22 08:00] VITALS: BP 166/76; PULSE 83; RESP 20; TEMP 36.4; O2SAT 95
[2022-10-22] MEDS: vancomycin HCL 750 MG in 0.9 % Sodium Chloride 250 ML 265 MG IV (09:30)
[2022-10-22] MEDS: Multivitamin TABLET 1 TAB PO (09:31)
[2022-10-22] MEDS: Folic Acid 1 MG TABLET PO (09:31)
[2022-10-22] MEDS: Thiamine HCL 100 MG TABLET PO (09:31)
[2022-10-22] MEDS: PHENobarbitaL 30 MG TABLET PO ×2 (09:31→22:20)
[2022-10-22] MEDS: Acetaminophen 325 MG TABLET 650 MG PO (09:31)
[2022-10-22] MEDS: lisinopriL 10 MG TABLET PO (09:32)
[2022-10-22] MEDS: Collagenase Clostridium Hist. 30 GM TUBE 1 APPL TOPICAL (09:38)
--- NOTE | 2022-10-22 11:05 | MHC.CLN ---
F/U PO INTAKE REMAINS 25% DIET RX: REGULAR DIET -APPROPRIATE PT RECEIVING ENSURE TID PROVIDES 1050KCALS, 60G PROTEIN WITH 100% ACCEPTANCE MONITOR PO INTAKE AND ENCOURAGE SUPPLEMENT FOR WOUND HEALING
[2022-10-22 11:40] VITALS: BP 141/69; PULSE 75; RESP 20; TEMP 36.7; O2SAT 94
--- NOTE | 2022-10-22 12:13 | MHC.RECOVRN ---
This policy writer sales met w/ patient, patient was laying in bed awake. Patient states is feeling better today. Patient reporting no s/s of withdrawal, no tremors visible. Patient states was at a friends apartment, when brother showed up and called the ambulance. Patient reports friend does not drink. Patient reports drinking 5 beers daily, occasionally up to 10 beers daily. Patient states typically drinks throughout the day. Patient reports no history of withdrawals and no history of ETOH seizures. Patient states is embarrassed and feels ashamed about drinking since high school. Patient states not interested in recovery supports at this time, patient states not interested in medications for alcohol use.
--- NOTE | 2022-10-22 12:41 | P.CONGS_ITS ---
History of Present Illness Consult details Consult date: 10/22/22 Requesting physician: Char Light Narrative: 67-year-old male patient admitted to the hospitalist service for failure to thrive. Patient was found by his brother at home on the ground soaked in urine and feces in his apartment. Patient was apparently found with there can surrounding him. Patient does not remember any of the events while at home but presents with severe cellulitis of his buttocks and a area of ulceration involving the left hip. Surgical consultation is requested for possible debridement. Patient was also found to be COVID positive. Current treatment has been using Santyl and protective dressings. Review of Systems Review of Systems: Yes Unobtainable due to mental status PMFSH Past Medical History Medical History Hypertension Family History Family History Father No problems noted. Mother Lung cancer Family/Other Lung cancer Throat cancer Family history: reviewed and not pertinent Surgical History Surgical History History of lumbar laminectomy Social History Social History Household Members: None Housing: Apartment Unable to assess alcohol history related to: Unable to respond Alcohol intake: current Alcohol intake frequency: 3 or more drinks per day Alcohol type: beer Patient Tobacco Use Status: Current everyday Tobacco user Tobacco use type: Cigarette Cigarette Packs Per Day: 1 Cigarettes Per Day: 20 Smoked in Last 30 Days: Yes e-Cigarette/Vaping Use: Never Used Patient Interested in Nicotine Replacement: No Patient Given Instructions on How to Stop Smoking: No Second Hand Smoke Exposure: Yes Use of substances other than those prescribed or required for medical reasons: Unable to respond Currently Displaying Signs/Symptoms of Drug Intoxication Withdrawal: No Have you been hit, kicked, punched, or otherwise hurt by someone within the past year? 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 30 Gm Tube) 1 appl TOPICAL DAILY [facility]; Protocol Last Admin: 10/22/22 09:38 Dose: 1 appl Folic Acid (Folic Acid 1 Mg Tablet) 1 mg PO DAILY [facility] Last Admin: 10/22/22 09:31 Dose: 1 mg Heparin Sodium (Porcine) (Heparin Sodium,Porcine 5,000 Unit/Ml Vial) 5,000 unit SUBCUT Q12H [facility] Last Admin: 10/22/22 05:59 Dose: 5,000 unit Ampicillin Sodium/Sulbactam (Sodium 3 gm/ Sodium Chloride) 100 mls @ 200 mls/hr IV Q6H [facility] Last Admin: 10/22/22 11:15 Dose: 200 mls/hr Vancomycin HCl 750 mg/ Sodium (Chloride) 265 mls @ 265 mls/hr IV Q12H [facility] Last Admin: 10/22/22 09:30 Dose: 265 mls/hr Dextrose (D5w) 1,000 mls @ 80 mls/hr IVCONT .[id number] [facility] Last Infusion: 10/22/22 09:40 Dose: 0 mls/hr Lisinopril (Lisinopril 10 Mg Tablet) 10 mg PO DAILY [facility]; Protocol Last Admin: 10/22/22 09:32 Dose: 10 mg Multivitamins/Vitamin C (Multivitamin Tablet) 1 tab PO DAILY [facility] Last Admin: 10/22/22 09:31 Dose: 1 tab Oseltamivir Phosphate (Oseltamivir Phosphate 75 Mg Capsule) 75 mg PO Q12H [facility] Stop: 10/23/22 05:01 Last Admin: 10/22/22 05:59 Dose: 75 mg Pharmacy Consult (Consult Rx Perform Med Rec) 1 each MISCELLANE ONCE PRN PRN Reason: Consult order Pharmacy Consult (Consult Rx Etoh Phenob Im/Po) 1 each MISCELLANE ONCE PRN; Protocol PRN Reason: Consult order Pharmacy Consult (Consult Rx Vancomycin Dosing) 1 each MISCELLANE DAILY [facility] Phenobarbital (Phenobarbital 30 Mg Tablet) 30 mg PO BID [facility] Stop: 10/22/22 21:01 Last Admin: 10/22/22 09:31 Dose: 30 mg Phenobarbital (Phenobarbital 30 Mg Tablet) 30 mg PO DAILY [facility] Stop: 10/24/22 09:01 Sodium Chloride (0.9 % Sodium Chloride Flush 3 Ml Syringe) 3 ml IVFLUSH QSHIFT [facility] Last Admin: 10/22/22 09:32 Dose: 3 ml Thiamine HCl (Thiamine Hcl 100 Mg Tablet) 100 mg PO DAILY [facility] Last Admin: 10/22/22 09:31 Dose: 100 mg Physical Exam Vital Signs: Vital Signs: Last Vital Signs Temp 98.1 F 10/22/22 11:40 Pulse 75 10/22/22 11:40 Resp 20 10/22/22 11:40 BP 141/69 H 10/22/22 11:40 Pulse Ox 94 10/22/22 11:40 O2 Del Method 10/22/22 11:40 BMI result Body Mass Index 26.5 Const: General: ill appearing and lethargic Orientation/consciousness: lethargic Limitations: altered mental status HEENT: Head: Yes normocephalic and Yes atraumatic Ears: hearing grossly normal bilaterally Resp: Other: Mild shortness of breath, able to speak in short sentences GI: Other: Soft, nondistended, nontender Skin: Other: Examination of the perineal wounds and left hip wound performed at bedside. A wide area of skin excoriation suggestive of a chemical burn from prolonged contact with urine and stool. Some granulation tissue was noted at the margins but some superficial necrotic skin is identified. This appears to be lifting from the margins, perhaps as a result of the santyl ointment. Left hip wound appears to be relatively superficial measuring 2-3 cm in diameter with a surrounding area of erythema. No necrotic skin is noted at this time. Results Labs Result diagrams: 10/19/22 05:52 10/22/22 05:52 Labs: Abnormal lab results 10/22/22 Range/Units 05:52 Chloride 112 H (96-108) mmol/L Anion Gap 9 L (12-20) Calcium 7.0 L (8.4-10.2) mg/dL AST 56 H (5-37) U/L ALT 62 H (0-40) U/L Total Protein 4.6 L (6.5-8.0) g/dL Albumin 1.9 L (3.5-5.0) g/dL BMP 10/22/22 05:52 Sodium 142 Potassium 3.7 Chloride 112 H Carbon Dioxide 25 BUN 9 D Creatinine 0.68 Calcium 7.0 L Liver Function 10/22/22 Range/Units 05:52 Total Bilirubin 0.6 (0.0-1.0) mg/dL Direct Bilirubin 0.3 (0.0-0.5) mg/dL AST 56 H (5-37) U/L ALT 62 H (0-40) U/L Alkaline Phosphatase 114 (39-117) U/L Albumin 1.9 L (3.5-5.0) g/dL Urine 10/18/22 Range/Units 14:48 Urine Color Dark Yellow Urine Appearance Clear Urine pH 5.5 (5.0-9.0) Ur Specific [place] 1.025 (1.005-1.025) Urine Protein Trace (Neg-Trace) mg/dL Urine Glucose (UA) Negative (Negative) mg/dL All other labs normal. Assessment and Plan (1) Cellulitis of buttock: Status: Acute (2) Rhabdomyolysis: Status: Acute Plan Unfortunate 67-year-old male found on ground covered in urine and stool for prolonged period of time now with a large skin burn appearing lesion in the perineum and buttocks. There is evidence of some necrotic skin this appears to be less a pressure reaction and more from prolonged contact with the urine stool. I would not recommend debridement this time as this may eventually slough. May benefit from Silvadene cream especially at the margins. I will continue to monitor. Time Spent With Patient Time: Total time managing care of this patient today ____ minutes. Procedures Date of Service Date of Service: 10/22/22
[2022-10-22] MEDS: traMADoL HCL 50 MG TABLET 25 MG PO (14:46)
--- NOTE | 2022-10-22 14:57 | MHC.CM.PN ---
PER MD ROUNDS, PT IS NOT MEDICALLY CLEARED FOR DC (COVID AND FLY TX, BUTTOCK CELLULITIS AND FTT) SOME STR FACILITIES FOLLOWING, WILL BE CONSIDERED COVID RECOVERED / IF NO RE-TEST OR POSITIVE. CM WILL CONTINUE TO FOLLOW.
[2022-10-22 15:52] VITALS: BP 142/82; PULSE 86; RESP 20; TEMP 37.3; O2SAT 94
--- NOTE | 2022-10-22 16:25 | HO.PM.IMPN ---
Subjective Subjective Date of Service: 10/22/22 Interval History: seen and examined this morning follow up for covid/flu, etoh withdrawal breathing improving, denies sob. cough getting better Review of Systems Review of Systems: Yes all other systems are reviewed and are negative Constitutional Constitutional: Denies chills and Denies fever(s) Cardiovascular Cardiovascular: Denies chest pain, Denies palpitations and Denies dyspnea Respiratory Respiratory: Reports cough and Denies dyspnea Gastrointestinal Gastrointestinal: Denies abdominal pain Endocrine Endocrine: Denies palpitations Physical Exam Vital Signs: Vital Signs: Last Vital Signs Temp 99.2 F 10/22/22 15:52 Pulse 86 10/22/22 15:52 Resp 20 10/22/22 15:52 BP 142/82 H 10/22/22 15:52 Pulse Ox 94 10/22/22 15:52 O2 Del Method 10/22/22 15:52 BMI result Body Mass Index 26.5 Const: General: comfortable, no acute distress, alert and awake Nutritional Appearance: overweight Resp: Other: diminished breath sounds, normal respiratory effort Effort & Inspection: normal respiratory effort, able to speak in complete sentences and no respiratory distress Cardio: Rate: regular rate Heart sounds: S1 normal heart sound present and S2 normal heart sound present GI: Inspection: No distended Palpation (GI): Soft to palpation Skin: Other: left hip wound covered in clean/intact dressing Neuro: Other: grossly nonfocal Extrem: Other: b/l 1+ leg edema Objective Data Active Medications Acetaminophen (Acetaminophen 325 Mg Tablet) 650 mg PO Q6H PRN PRN Reason: Pain, Mild (Pain Scale 1-3) Last Admin: 10/22/22 09:31 Dose: 650 mg Documented By: VERONICA Collagenase (Collagenase Clostridium Hist. 30 Gm Tube) 1 appl TOPICAL DAILY [facility]; Protocol Last Admin: 10/22/22 09:38 Dose: 1 appl Documented By: VERONICA Folic Acid (Folic Acid 1 Mg Tablet) 1 mg PO DAILY [facility] Last Admin: 10/22/22 09:31 Dose: 1 mg Documented By: VERONICA Heparin Sodium (Porcine) (Heparin Sodium,Porcine 5,000 Unit/Ml Vial) 5,000 unit SUBCUT Q12H [facility] Last Admin: 10/22/22 05:59 Dose: 5,000 unit Documented By: ТАТЬЯНА Ampicillin Sodium/Sulbactam (Sodium 3 gm/ Sodium Chloride) 100 mls @ 200 mls/hr IV Q6H [facility] Last Infusion: 10/22/22 13:40 Dose: 0 mls/hr Documented By: VERONICA Vancomycin HCl 750 mg/ Sodium (Chloride) 265 mls @ 265 mls/hr IV Q12H [facility] Last Infusion: 10/22/22 13:40 Dose: 0 mls/hr Documented By: VERONICA Dextrose (D5w) 1,000 mls @ 80 mls/hr IVCONT .[id number] [facility] Last Infusion: 10/22/22 14:27 Dose: 0 mls/hr Documented By: VERONICA Lisinopril (Lisinopril 10 Mg Tablet) 10 mg PO DAILY [facility]; Protocol Last Admin: 10/22/22 09:32 Dose: 10 mg Documented By: VERONICA Multivitamins/Vitamin C (Multivitamin Tablet) 1 tab PO DAILY [facility] Last Admin: 10/22/22 09:31 Dose: 1 tab Documented By: VERONICA Oseltamivir Phosphate (Oseltamivir Phosphate 75 Mg Capsule) 75 mg PO Q12H [facility] Stop: 10/23/22 05:01 Last Admin: 10/22/22 05:59 Dose: 75 mg Documented By: ТАТЬЯНА Pharmacy Consult (Consult Rx Perform Med Rec) 1 each MISCELLANE ONCE PRN PRN Reason: Consult order Pharmacy Consult (Consult Rx Etoh Phenob Im/Po) 1 each MISCELLANE ONCE PRN; Protocol PRN Reason: Consult order Pharmacy Consult (Consult Rx Vancomycin Dosing) 1 each MISCELLANE DAILY [facility] Phenobarbital (Phenobarbital 30 Mg Tablet) 30 mg PO BID [facility] Stop: 10/22/22 21:01 Last Admin: 10/22/22 09:31 Dose: 30 mg Documented By: VERONICA Phenobarbital (Phenobarbital 30 Mg Tablet) 30 mg PO DAILY [facility] Stop: 10/24/22 09:01 Sodium Chloride (0.9 % Sodium Chloride Flush 3 Ml Syringe) 3 ml IVFLUSH QSHIFT [facility] Last Admin: 10/22/22 09:32 Dose: 3 ml Documented By: VERONICA Thiamine HCl (Thiamine Hcl 100 Mg Tablet) 100 mg PO DAILY [facility] Last Admin: 10/22/22 09:31 Dose: 100 mg Documented By: VERONICA Labs CBC & Chem 7: 10/19/22 05:52 10/22/22 05:52 Labs: Laboratory Results - last 24 hr 10/22/22 05:52 Anion Gap 9 L Estim Creat Clear Calc 122.3 Estimated GFR > 60 Random Glucose 86 D Calcium 7.0 L Total Bilirubin 0.6 Direct Bilirubin 0.3 AST 56 H ALT 62 H Alkaline Phosphatase 114 Total Protein 4.6 L Albumin 1.9 L Assessment and Plan (1) Cellulitis of buttock: Status: Acute (2) Alcohol withdrawal: Status: Acute (3) COVID-19 virus infection: Status: Acute (4) Influenza A: Status: Acute Plan 67-year-old man presented with failure to thrive and severe alcoholism, he drinks on a daily basis and was found his home extremely unkept h/o Hypertension BP had been low bp improved today continue lisinopril continue IVF Severe sepsis, multifactorial with cellulitis, COVID-19 and influenza. Sepsis resolved Hypothermia, tachycardia, lactic acidosis No hypotension, no need for 30 mL/kg fluid bolus at this time Blood cultures negative to date COVID 19/influenza a No hypoxia noted, no need for remdesivir or steroids at this time Chest x-ray showing lower lobe bronchiectasis with bronchial wall thickening suggestive of airway inflammation with airway infection continue Unasyn and vancomycin as per ID 5-7 days, on day 4 Tamiflu 5 days not requiring supplemental oxygen ID following Severe buttocks excoriation/cellulitis/stage 3 pressure ulcer Keep area clean stop bacitracin wound consult rec santyl gen surg rec continue chemical debridement Continue vancomycin and unasyn Hypernatremia resolved d/c IVF Hypokalemia resolved with replacement Failure to thrive Likely secondary to alcohol use Physical therapy consultation- rec STR Add protein to diet, encourage oral intake Alcohol use disorder continue phenobarbital Addiction medicine consultation pending, seen by recovery team continue Folic acid, thiamine, multivitamin Elevated CPK Patient found on the ground, unable to determine how long he had been there Secondary to dehydration, fall CPK trending down Transaminitis. Trending down Secondary to alcohol abuse Elevated troponin. No delta No complaints of chest pain No ischemic changes on EKG Likely secondary to elevated CPK right renal lesion seen on CT - recommend outpatient CT with renal mass protocol vs MR with contrast for further characterization DVT prophylaxis with heparin Full code Attending Dr. Gonzalez Dispo: PT rec STR. can recheck covid 10/24 continued hospitalization for treatment of influenza a and COVID-19 along with severe buttocks cellulitis and failure to thrive? Time Spent With Patient Time: Total time managing care of this patient today ____ minutes. Quality Stroke Does the patient have a stroke diagnosis?: No VTE Prior VTE?: No VTE Risk Level:: Medical - moderate - high VTE Device Contraindication: N/A - Device Ordered VTE Drug Contraindication: N/A - Med Ordered
[2022-10-22 17:31] LABS: Vancomycin Trough 7.7 mcg/mL (10.0-20.0)
--- NOTE | 2022-10-22 17:51 | HE.PHANOTE ---
VANCOMYCIN DOSING ADJUSTMENT BASED ON SCR DOSE CHANGED TO 1000 Q 12H. NEXT TROUGH 10/23 @ 1600.
[2022-10-22] MEDS: vancomycin HCL 1,000 MG in 0.9 % Sodium Chloride 250 ML 270 MG IV (18:58)
[2022-10-22 20:00] VITALS: BP 139/79; PULSE 80; RESP 20; TEMP 36.4; O2SAT 95
[2022-10-22 23:44] VITALS: BP 133/66; PULSE 82; RESP 18; TEMP 36.3; O2SAT 94
[2022-10-23 03:25] VITALS: BP 130/73; PULSE 76; RESP 20; TEMP 36.4; O2SAT 93
[2022-10-23] MEDS: Oseltamivir Phosphate 75 MG CAPSULE PO (05:23)
[2022-10-23] MEDS: Heparin Sodium,Porcine 5,000 UNIT/ML VIAL 5000 UNIT SUBCUT ×2 (05:23→17:39)
[2022-10-23] MEDS: vancomycin HCL 1,000 MG in 0.9 % Sodium Chloride 250 ML 270 MG IV ×2 (06:06→17:44)
[2022-10-23 06:52] LABS: Creatinine Clr Calc Pharmacy 115.5; Estimated Glomerular Filt Rate > 60
[2022-10-23 08:00] VITALS: BP 139/80; PULSE 89; RESP 16; TEMP 36.4; O2SAT 95
[2022-10-23] MEDS: Collagenase Clostridium Hist. 30 GM TUBE 1 APPL TOPICAL (09:19)
[2022-10-23] MEDS: PHENobarbitaL 30 MG TABLET PO (09:20)
[2022-10-23] MEDS: Thiamine HCL 100 MG TABLET PO (09:20)
[2022-10-23] MEDS: lisinopriL 10 MG TABLET PO (09:20)
[2022-10-23] MEDS: Folic Acid 1 MG TABLET PO (09:20)
[2022-10-23] MEDS: Multivitamin TABLET 1 TAB PO (09:26)
[2022-10-23 11:26] VITALS: BP 136/74; PULSE 82; RESP 16; TEMP 36.2; O2SAT 96
--- NOTE | 2022-10-23 13:53 | HO.PM.IMPN ---
Subjective Subjective Date of Service: 10/23/22 Interval History: seen and examined this morning follow up for buttock/hip wound, etoh, covid/flu denies shortness of breath, cough better Review of Systems Review of Systems: Yes all other systems are reviewed and are negative Constitutional Constitutional: Denies chills and Denies fever(s) Cardiovascular Cardiovascular: Denies chest pain, Denies palpitations and Denies dyspnea Respiratory Respiratory: Reports cough and Denies dyspnea Gastrointestinal Gastrointestinal: Denies abdominal pain Endocrine Endocrine: Denies palpitations Physical Exam Vital Signs: Vital Signs: Last Vital Signs Temp 97.1 F 10/23/22 11:26 Pulse 82 10/23/22 11:26 Resp 16 10/23/22 11:26 BP 136/74 10/23/22 11:26 Pulse Ox 96 10/23/22 11:26 O2 Del Method 10/23/22 11:26 BMI result Body Mass Index 26.5 Const: General: comfortable, no acute distress, alert and awake Nutritional Appearance: overweight Resp: Other: diminished breath sounds, normal respiratory effort Effort & Inspection: normal respiratory effort, able to speak in complete sentences and no respiratory distress Cardio: Rate: regular rate Heart sounds: S1 normal heart sound present and S2 normal heart sound present GI: Inspection: No distended Palpation (GI): Soft to palpation : Other: draper in place Skin: Other: left hip wound sacral wound Neuro: Other: grossly nonfocal Extrem: Other: b/l 1+ leg edema Objective Data Active Medications Acetaminophen (Acetaminophen 325 Mg Tablet) 650 mg PO Q6H PRN PRN Reason: Pain, Mild (Pain Scale 1-3) Last Admin: 10/22/22 09:31 Dose: 650 mg Documented By: VERONICA Collagenase (Collagenase Clostridium Hist. 30 Gm Tube) 1 appl TOPICAL DAILY [facility]; Protocol Last Admin: 10/23/22 09:19 Dose: 1 appl Documented By: ELEANOR Folic Acid (Folic Acid 1 Mg Tablet) 1 mg PO DAILY [facility] Last Admin: 10/23/22 09:20 Dose: 1 mg Documented By: ELEANOR Heparin Sodium (Porcine) (Heparin Sodium,Porcine 5,000 Unit/Ml Vial) 5,000 unit SUBCUT Q12H [facility] Last Admin: 10/23/22 05:23 Dose: 5,000 unit Documented By: HO.SEXK Ampicillin Sodium/Sulbactam (Sodium 3 gm/ Sodium Chloride) 100 mls @ 200 mls/hr IV Q6H [facility] Last Infusion: 10/23/22 11:45 Dose: 0 mls/hr Documented By: ELEANOR Vancomycin HCl 1,000 mg/ (Sodium Chloride) 270 mls @ 270 mls/hr IV Q12H [facility] Last Infusion: 10/23/22 07:15 Dose: 0 mls/hr Documented By: ELEANOR Lisinopril (Lisinopril 10 Mg Tablet) 10 mg PO DAILY [facility]; Protocol Last Admin: 10/23/22 09:20 Dose: 10 mg Documented By: ELEANOR Multivitamins/Vitamin C (Multivitamin Tablet) 1 tab PO DAILY [facility] Last Admin: 10/23/22 09:26 Dose: 1 tab Documented By: ELEANOR Pharmacy Consult (Consult Rx Perform Med Rec) 1 each MISCELLANE ONCE PRN PRN Reason: Consult order Pharmacy Consult (Consult Rx Etoh Phenob Im/Po) 1 each MISCELLANE ONCE [facility]; Protocol PRN Reason: Consult order Pharmacy Consult (Consult Rx Vancomycin Dosing) 1 each MISCELLANE DAILY [facility] Phenobarbital (Phenobarbital 30 Mg Tablet) 30 mg PO DAILY [facility] Stop: 10/24/22 09:01 Last Admin: 10/23/22 09:20 Dose: 30 mg Documented By: ELEANOR Sodium Chloride (0.9 % Sodium Chloride Flush 3 Ml Syringe) 3 ml IVFLUSH QSHIFT [facility] Last Admin: 10/23/22 09:21 Dose: 3 ml Documented By: ELEANOR Thiamine HCl (Thiamine Hcl 100 Mg Tablet) 100 mg PO DAILY [facility] Last Admin: 10/23/22 09:20 Dose: 100 mg Documented By: ELEANOR Labs CBC & Chem 7: 10/19/22 05:52 10/23/22 06:01 Labs: Laboratory Results - last 24 hr 10/22/22 10/23/22 17:09 06:01 Estim Creat Clear Calc 115.5 Estimated GFR > 60 Vancomycin Trough 7.7 L Assessment and Plan (1) Cellulitis of buttock: Status: Acute (2) Alcohol withdrawal: Status: Acute (3) COVID-19 virus infection: Status: Acute (4) Influenza A: Status: Acute Plan 67-year-old man presented with failure to thrive and severe alcoholism, he drinks on a daily basis and was found his home extremely unkept Severe sepsis, multifactorial with cellulitis, COVID-19 and influenza Met criteria with Hypothermia, tachycardia, lactic acidosis, now resolved No hypotension, no need for 30 mL/kg fluid bolus at this time Blood cultures negative to date COVID 19/influenza a No hypoxia noted, no need for remdesivir or steroids at this time Chest x-ray showing lower lobe bronchiectasis with bronchial wall thickening suggestive of airway inflammation with airway infection continue Unasyn and vancomycin as per ID 5-7 days, on day 6 completed course of tamiflu not requiring supplemental oxygen ID following Severe buttocks excoriation/cellulitis/stage 3 pressure ulcer Keep area clean wound consult rec santyl gen surg rec continue chemical debridement Continue vancomycin and unasyn Hypernatremia resolved d/c IVF Hypokalemia resolved with replacement Failure to thrive Likely secondary to alcohol use Physical therapy consultation- rec STR Add protein to diet, encourage oral intake Alcohol use disorder continue phenobarbital seen by recovery team continue Folic acid, thiamine, multivitamin discussed importance of alcohol cessation Elevated CPK Patient found on the ground, unable to determine how long he had been there Secondary to dehydration, fall CPK trending down Transaminitis. Trending down Secondary to alcohol abuse Elevated troponin. No delta No complaints of chest pain No ischemic changes on EKG Likely secondary to elevated CPK right renal lesion seen on CT - recommend outpatient CT with renal mass protocol vs MR with contrast for further characterization Hypertension continue lisinopril DVT prophylaxis with heparin Full code Attending Dr. Redman Dispo: PT rec STR continued hospitalization for treatment of influenza a and COVID-19 along with severe buttocks cellulitis and failure to thrive? Time Spent With Patient Time: Total time managing care of this patient today ____ minutes. Quality Stroke Does the patient have a stroke diagnosis?: No VTE Prior VTE?: No VTE Risk Level:: Medical - moderate - high VTE Device Contraindication: N/A - Device Ordered VTE Drug Contraindication: N/A - Med Ordered
[2022-10-23 15:38] VITALS: BP 138/76; PULSE 80; RESP 20; TEMP 36.3; O2SAT 94
[2022-10-23 16:27] LABS: Vancomycin Random 13.6 mcg/mL (15-20)
[2022-10-23 19:16] VITALS: BP 119/67; PULSE 99; RESP 20; TEMP 36.2; O2SAT 94
[2022-10-23 23:17] VITALS: BP 115/70; PULSE 86; RESP 20; TEMP 37; O2SAT 94
[2022-10-24 03:26] VITALS: BP 132/76; PULSE 87; RESP 18; TEMP 36.4; O2SAT 94
[2022-10-24] MEDS: vancomycin HCL 1,000 MG in 0.9 % Sodium Chloride 250 ML 270 MG IV (06:06)
[2022-10-24] MEDS: Heparin Sodium,Porcine 5,000 UNIT/ML VIAL 5000 UNIT SUBCUT ×2 (06:06→17:07)
[2022-10-24 07:19] LABS: Creatinine Clr Calc Pharmacy 106.7; Estimated Glomerular Filt Rate > 60
[2022-10-24 08:00] VITALS: BP 124/65; PULSE 88; RESP 24; TEMP 37.1; O2SAT 94
[2022-10-24] MEDS: Multivitamin TABLET 1 TAB PO (09:54)
[2022-10-24] MEDS: Thiamine HCL 100 MG TABLET PO (09:54)
[2022-10-24] MEDS: lisinopriL 10 MG TABLET PO (09:54)
[2022-10-24] MEDS: Folic Acid 1 MG TABLET PO (09:55)
[2022-10-24] MEDS: Collagenase Clostridium Hist. 30 GM TUBE 1 APPL TOPICAL (09:55)
[2022-10-24] MEDS: PHENobarbitaL 30 MG TABLET PO (09:55)
[2022-10-24 11:42] VITALS: BP 128/83; PULSE 87; RESP 22; TEMP 36.6; O2SAT 94
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
[2022-10-24 15:33] VITALS: BP 113/63; PULSE 86; RESP 20; TEMP 36.4; O2SAT 93
[2022-10-24 15:50] LABS: COVID-19 Test Positive (Negative); IDNOW Serial# 16C4AD1C
[2022-10-24 19:31] VITALS: BP 107/57; PULSE 80; RESP 20; TEMP 36.4; O2SAT 92
[2022-10-24 23:15] VITALS: BP 129/71; PULSE 80; RESP 20; TEMP 36.3; O2SAT 90
[2022-10-25 03:59] VITALS: BP 118/71; PULSE 92; RESP 20; TEMP 37; O2SAT 94
[2022-10-25] MEDS: Heparin Sodium,Porcine 5,000 UNIT/ML VIAL 5000 UNIT SUBCUT ×2 (05:03→17:36)
[2022-10-25 07:34] LABS: Creatinine Clr Calc Pharmacy 112.4; Estimated Glomerular Filt Rate > 60
[2022-10-25 07:48] VITALS: BP 120/68; PULSE 90; RESP 18; TEMP 36.6; O2SAT 94
[2022-10-25] MEDS: Multivitamin TABLET 1 TAB PO (08:51)
[2022-10-25] MEDS: Thiamine HCL 100 MG TABLET PO (08:51)
[2022-10-25] MEDS: lisinopriL 10 MG TABLET PO (08:51)
[2022-10-25] MEDS: Folic Acid 1 MG TABLET PO (08:51)
[2022-10-25] MEDS: Collagenase Clostridium Hist. 30 GM TUBE 1 APPL TOPICAL (08:52)
--- NOTE | 2022-10-25 09:08 | MHC.CM.PN ---
Male 67 DX Covid+ Flu+ Cellulitis. Patient tested Covid + day 5. PT is recommending STR. 10/29/22 Patient will be considered covid recovered. DP STR via BLS once covid recovered or a covid bed is found.
--- NOTE | 2022-10-25 10:35 | PC.NURSE ---
Dressing to coccyx changed at 1030. Santyl and Foam dressing applied. Patient tolerated well. Repositioned q2 hrs. Attempted to get patient oob to recliner, patient c/o severe dizziness when sitting on the side of bed. Will attempt to try again later today.
--- NOTE | 2022-10-25 10:38 | P.PNIM_ITS ---
Subjective Subjective Date of Service: 10/25/22 Interval History: seen and examined this morning follow up flu, covid, etoh withdrawal, saccral/left hip wouds no shortness of breath, cough improving no abdominal pain, nausea or vomiting Review of Systems Review of Systems: Yes all other systems are reviewed and are negative Constitutional Constitutional: Denies chills and Denies fever(s) Cardiovascular Cardiovascular: Denies chest pain, Denies palpitations and Denies dyspnea Respiratory Respiratory: Reports cough and Denies dyspnea Gastrointestinal Gastrointestinal: Denies abdominal pain Endocrine Endocrine: Denies palpitations Physical Exam Vital Signs: Vital Signs: Last Vital Signs Temp 98 F 10/25/22 07:48 Pulse 90 10/25/22 07:48 Resp 18 10/25/22 07:48 BP 120/68 10/25/22 07:48 Pulse Ox 94 10/25/22 07:48 O2 Del Method 10/25/22 07:48 BMI result Body Mass Index 26.5 Appearing in no acute distress lung sounds are clear to auscultation heart regular rate rhythm, clear S1, S2 positive bowel sounds, abdomen is soft, nontender neuro patient is alert x3, no focal deficits Image 10/25/21 Image on admission Objective Data Active Medications Acetaminophen (Acetaminophen 325 Mg Tablet) 650 mg PO Q6H PRN PRN Reason: Pain, Mild (Pain Scale 1-3) Last Admin: 10/22/22 09:31 Dose: 650 mg Documented By: VERONICA Collagenase (Collagenase Clostridium Hist. 30 Gm Tube) 1 appl TOPICAL DAILY [facility]; Protocol Last Admin: 10/25/22 08:52 Dose: 1 appl Documented By: MARCO A Folic Acid (Folic Acid 1 Mg Tablet) 1 mg PO DAILY [facility] Last Admin: 10/25/22 08:51 Dose: 1 mg Documented By: MARCO A Heparin Sodium (Porcine) (Heparin Sodium,Porcine 5,000 Unit/Ml Vial) 5,000 unit SUBCUT Q12H [facility] Last Admin: 10/25/22 05:03 Dose: 5,000 unit Documented By: JAYLYN Lisinopril (Lisinopril 10 Mg Tablet) 10 mg PO DAILY [facility]; Protocol Last Admin: 10/25/22 08:51 Dose: 10 mg Documented By: MARCO A Multivitamins/Vitamin C (Multivitamin Tablet) 1 tab PO DAILY [facility] Last Admin: 10/25/22 08:51 Dose: 1 tab Documented By: MARCO A Pharmacy Consult (Consult Rx Perform Med Rec) 1 each MISCELLANE ONCE PRN PRN Reason: Consult order Pharmacy Consult (Consult Rx Etoh Phenob Im/Po) 1 each MISCELLANE ONCE PRN; Protocol PRN Reason: Consult order Pharmacy Consult (Consult Rx Vancomycin Dosing) 1 each MISCELLANE DAILY [facility] Sodium Chloride (0.9 % Sodium Chloride Flush 3 Ml Syringe) 3 ml IVFLUSH QSHIFT [facility] Last Admin: 10/25/22 08:51 Dose: 3 ml Documented By: MARCO A Thiamine HCl (Thiamine Hcl 100 Mg Tablet) 100 mg PO DAILY [facility] Last Admin: 10/25/22 08:51 Dose: 100 mg Documented By: MARCO A Labs CBC & Chem 7: 10/19/22 05:52 10/25/22 06:55 Labs: Laboratory Results - last 24 hr 10/24/22 10/25/22 14:45 06:55 Estim Creat Clear Calc 112.4 Estimated GFR > 60 COVID-19 (YE) Positive A COVID-19 Clin Com See Note Assessment and Plan (1) Cellulitis of buttock: Status: Acute (2) Alcohol withdrawal: Status: Acute (3) COVID-19 virus infection: Status: Acute (4) Influenza A: Status: Acute Plan 67-year-old man presented with failure to thrive and severe alcoholism, he drinks on a daily basis and was found his home extremely unkept Severe sepsis, multifactorial with cellulitis, COVID-19 and influenza Met criteria with Hypothermia, tachycardia, lactic acidosis, now resolved Blood cultures negative to date COVID 19/influenza a No hypoxia noted, no remdesivir or steroids Chest x-ray showing lower lobe bronchiectasis with bronchial wall thickening suggestive of airway inflammation with airway infection s/p 7 day course of Unasyn and vancomycin completed course of tamiflu not requiring supplemental oxygen ID following Covid pos 10/24/21, recovered 10/28/21 Severe buttocks excoriation. Improving per surgery likely chemical burn from prolonged contact with urine/stool Keep area clean wound consult rec santyl to small area of eschar no need for debridement at this time Hypernatremia resolved d/c IVF Hypokalemia resolved with replacement Failure to thrive Likely secondary to alcohol use Physical therapy consultation- rec STR Add protein to diet, encourage oral intake Alcohol use disorder completed phenobarbital seen by recovery team continue Folic acid, thiamine, multivitamin discussed importance of alcohol cessation Elevated CPK Patient found on the ground, unable to determine how long he had been there Secondary to dehydration, fall CPK trending down Transaminitis. Trending down Secondary to alcohol abuse Elevated troponin. No delta No complaints of chest pain No ischemic changes on EKG Likely secondary to elevated CPK right renal lesion seen on CT - recommend outpatient CT with renal mass protocol vs MR with contrast for further characterization Hypertension continue lisinopril DVT prophylaxis with heparin Full code Attending Dr. Carlos Manuel Bobby OOB to chair Dispo: PT rec STR once covid recovered continued hospitalization for treatment of influenza a and COVID-19 along with severe buttocks cellulitis and failure to thrive, safe disposition ? Time Spent With Patient Time: Total time managing care of this patient today ____ minutes. Quality Stroke Does the patient have a stroke diagnosis?: No VTE Prior VTE?: No VTE Risk Level:: Medical - moderate - high VTE Device Contraindication: N/A - Device Ordered VTE Drug Contraindication: N/A - Med Ordered
[2022-10-25 11:33] VITALS: BP 124/73; PULSE 82; RESP 18; TEMP 36.6; O2SAT 94
--- NOTE | 2022-10-25 13:56 | MHC.RECOVRN ---
Met with pt in 478 to provide support in regards to alcohol use. Pt sitting in bed, awake, alert, easily engages in conversation. Pt states I don't know why people think I have a problem. I only have a few drinks. Pt denies withdrawal symptoms and cravings, reports feeling good. Encouraged pt to reach out if he would like support in regards to alcohol use.
--- NOTE | 2022-10-25 14:46 | MHC.CLN ---
F/U PO INTAKE 100%X4 MEALS DIET RX: REGULAR DIET -APPROPRIATE PT RECEIVING ENSURE TID PROVIDES 1050KCALS, 60G PROTEIN WITH 100% ACCEPTANCE MONITOR PO INTAKE AND ENCOURAGE SUPPLEMENT FOR WOUND HEALING
[2022-10-25 15:45] VITALS: BP 121/64; PULSE 97; RESP 17; TEMP 37.3; O2SAT 94
[2022-10-25 19:33] VITALS: BP 116/65; PULSE 89; RESP 17; TEMP 37.4; O2SAT 92
[2022-10-26] VITALS (7 sets, daily range): BP systolic 112–144; BP diastolic 61–75; PULSE 75–88; RESP 14–19; TEMP 36.4–37; O2SAT 90–95
[2022-10-26] MEDS: Acetaminophen 325 MG TABLET 650 MG PO
[2022-10-26] MEDS: Heparin Sodium,Porcine 5,000 UNIT/ML VIAL 5000 UNIT SUBCUT ×2 (06:20→17:09)
[2022-10-26 06:58] LABS: Creatinine Clr Calc Pharmacy 118.8; Estimated Glomerular Filt Rate > 60
[2022-10-26] MEDS: Collagenase Clostridium Hist. 30 GM TUBE 1 APPL TOPICAL (08:22)
[2022-10-26] MEDS: lisinopriL 10 MG TABLET PO (08:23)
[2022-10-26] MEDS: Multivitamin TABLET 1 TAB PO (08:23)
[2022-10-26] MEDS: Folic Acid 1 MG TABLET PO (08:23)
[2022-10-26] MEDS: Thiamine HCL 100 MG TABLET PO (08:23)
[2022-10-26 08:56] LABS: Hemoglobin 10.8 g/dl (14.0-18.0); Mean Corpuscular HGB Conc 33.8 g/dl (31.0-36.0); Mean Corpuscular Hemoglobin 32.2 pg (27.0-33.0); Mean Corpuscular Volume 95.5 fL (80.0-98.0); Mean Platelet Volume 11.2 fL (9.4-12.4); Platelet Count 308 X10*3/uL (160-400); Red Blood Count 3.35 X10*6/uL (4.60-5.80); Red Cell Distribution Width 14.5 % (11.0-16.0); White Blood Count 11.8 X10*3/uL (4.8-10.8)
[2022-10-26 09:12] LABS: Anion Gap 9 (12-20); Blood Urea Nitrogen 9 mg/dL (9-16); Calcium 7.5 mg/dL (8.4-10.2); Carbon Dioxide 27 mmol/L (22-29); Chloride 105 mmol/L (96-108); Creatinine Clr Calc Pharmacy 117.2; Estimated Glomerular Filt Rate > 60; Glucose Random 89 mg/dL (60-115); Potassium 3.5 mmol/L (3.3-5.1); Sodium 137 mmol/L (135-145)
--- NOTE | 2022-10-26 10:12 | PM.EVENT ---
Event Note Date of Service: 10/26/22 Event Note: Addiction consult: Patient seen multiple times by [facility] RNs Declines resources, referrals or discussion around options for [facility]. [facility] signing off case for now. Please reconsult if needed. Time Spent With Patient Time: Total time managing care of this patient today ____ minutes.
--- NOTE | 2022-10-26 11:56 | HO.PM.IMPN ---
Subjective Subjective Date of Service: 10/26/22 Interval History: seen and examined this morning follow up flu, covid, etoh withdrawal, saccral/left hip wounds no shortness of breath, cough improving no abdominal pain, nausea or vomiting Review of Systems Review of Systems: Yes all other systems are reviewed and are negative Constitutional Constitutional: Denies chills and Denies fever(s) Cardiovascular Cardiovascular: Denies chest pain, Denies palpitations and Denies dyspnea Respiratory Respiratory: Reports cough and Denies dyspnea Gastrointestinal Gastrointestinal: Denies abdominal pain Endocrine Endocrine: Denies palpitations Physical Exam Vital Signs: Vital Signs: Last Vital Signs Temp 97.6 F 10/26/22 11:28 Pulse 88 10/26/22 11:28 Resp 19 10/26/22 11:28 BP 117/68 10/26/22 11:28 Pulse Ox 90 L 10/26/22 11:28 O2 Del Method 10/26/22 11:28 BMI result Body Mass Index 26.5 Appearing in no acute distress lung sounds are clear to auscultation heart regular rate rhythm, clear S1, S2 positive bowel sounds, abdomen is soft, nontender neuro patient is alert x3, no focal deficits Buttocks excoriation Objective Data Active Medications Acetaminophen (Acetaminophen 325 Mg Tablet) 650 mg PO Q6H PRN PRN Reason: Pain, Mild (Pain Scale 1-3) Last Admin: 10/26/22 00:00 Dose: 650 mg Documented By: DEYANIRA Collagenase (Collagenase Clostridium Hist. 30 Gm Tube) 1 appl TOPICAL DAILY [facility]; Protocol Last Admin: 10/26/22 08:22 Dose: 1 appl Documented By: ELEANOR Folic Acid (Folic Acid 1 Mg Tablet) 1 mg PO DAILY [facility] Last Admin: 10/26/22 08:23 Dose: 1 mg Documented By: ELEANOR Heparin Sodium (Porcine) (Heparin Sodium,Porcine 5,000 Unit/Ml Vial) 5,000 unit SUBCUT Q12H [facility] Last Admin: 10/26/22 06:20 Dose: 5,000 unit Documented By: DEYANIRA Lisinopril (Lisinopril 10 Mg Tablet) 10 mg PO DAILY [facility]; Protocol Last Admin: 10/26/22 08:23 Dose: 10 mg Documented By: ELEANOR Multivitamins/Vitamin C (Multivitamin Tablet) 1 tab PO DAILY [facility] Last Admin: 10/26/22 08:23 Dose: 1 tab Documented By: ELEANOR Pharmacy Consult (Consult Rx Perform Med Rec) 1 each MISCELLANE ONCE PRN PRN Reason: Consult order Pharmacy Consult (Consult Rx Etoh Phenob Im/Po) 1 each MISCELLANE ONCE PRN; Protocol PRN Reason: Consult order Pharmacy Consult (Consult Rx Vancomycin Dosing) 1 each MISCELLANE DAILY [facility] Sodium Chloride (0.9 % Sodium Chloride Flush 3 Ml Syringe) 3 ml IVFLUSH QSHIFT [facility] Last Admin: 10/26/22 08:23 Dose: 3 ml Documented By: ELEANOR Thiamine HCl (Thiamine Hcl 100 Mg Tablet) 100 mg PO DAILY [facility] Last Admin: 10/26/22 08:23 Dose: 100 mg Documented By: ELEANOR Labs CBC & Chem 7: 10/26/22 08:41 10/26/22 08:41 Labs: Laboratory Results - last 24 hr 10/26/22 10/26/22 10/26/22 06:13 08:41 08:41 MCV 95.5 MCH 32.2 MCHC 33.8 RDW 14.5 Plt Count 308 D MPV 11.2 Absolute Nucleated RBC 0.000 Nucleated RBC % (auto) 0.0 Anion Gap 9 L Estim Creat Clear Calc 118.8 117.2 Estimated GFR > 60 > 60 Random Glucose 89 Calcium 7.5 L D Assessment and Plan (1) Cellulitis of buttock: Status: Acute (2) Alcohol withdrawal: Status: Acute (3) COVID-19 virus infection: Status: Acute (4) Influenza A: Status: Acute Plan 67-year-old man presented with failure to thrive and severe alcoholism, he drinks on a daily basis and was found his home extremely unkept Severe buttocks excoriation. Improving per surgery likely chemical burn from prolonged contact with urine/stool Keep area clean wound consult rec santyl to small area of eschar and zinc oxide to pink granulating tissue Severe sepsis, multifactorial with cellulitis, COVID-19 and influenza. Resolved Met criteria with Hypothermia, tachycardia, lactic acidosis, now resolved Blood cultures negative to date COVID 19/influenza a No hypoxia noted, no remdesivir or steroids Chest x-ray showing lower lobe bronchiectasis with bronchial wall thickening suggestive of airway inflammation with airway infection s/p 7 day course of Unasyn and vancomycin completed course of tamiflu not requiring supplemental oxygen ID following Covid pos 10/24/21, recovered 10/28/21 Hypernatremia resolved d/c IVF Hypokalemia resolved with replacement Failure to thrive Likely secondary to alcohol use Physical therapy consultation- rec STR Add protein to diet, encourage oral intake Alcohol use disorder completed phenobarbital seen by recovery team continue Folic acid, thiamine, multivitamin discussed importance of alcohol cessation Elevated CPK Patient found on the ground, unable to determine how long he had been there Secondary to dehydration, fall CPK trending down Transaminitis. Trending down Secondary to alcohol abuse Elevated troponin. No delta No complaints of chest pain No ischemic changes on EKG Likely secondary to elevated CPK right renal lesion seen on CT - recommend outpatient CT with renal mass protocol vs MR with contrast for further characterization Hypertension continue lisinopril DVT prophylaxis with heparin Full code Attending Dr. Carlos ARMSTRONG to chair Dispo: PT rec STR once covid recovered 10/29/21 continued hospitalization for treatment of influenza a and COVID-19 along with severe buttocks cellulitis and failure to thrive, safe disposition ? Time Spent With Patient Time: Total time managing care of this patient today ____ minutes. Quality Stroke Does the patient have a stroke diagnosis?: No VTE Prior VTE?: No VTE Risk Level:: Medical - moderate - high VTE Device Contraindication: N/A - Device Ordered VTE Drug Contraindication: N/A - Med Ordered
[2022-10-26] MEDS: Zinc Oxide 20% Ointment 28.35 GM TUBE 1 APPL TOPICAL (23:59)
[2022-10-27 03:13] VITALS: BP 125/68; PULSE 86; RESP 19; TEMP 36.3; O2SAT 93
[2022-10-27] MEDS: Heparin Sodium,Porcine 5,000 UNIT/ML VIAL 5000 UNIT SUBCUT ×2 (05:49→18:38)
[2022-10-27 07:30] LABS: Creatinine Clr Calc Pharmacy 126.1; Estimated Glomerular Filt Rate > 60
[2022-10-27 08:00] VITALS: BP 131/61; PULSE 95; RESP 18; TEMP 36.6; O2SAT 93
[2022-10-27] MEDS: Thiamine HCL 100 MG TABLET PO (09:24)
[2022-10-27] MEDS: Multivitamin TABLET 1 TAB PO (09:24)
[2022-10-27] MEDS: lisinopriL 10 MG TABLET PO (09:24)
[2022-10-27] MEDS: Folic Acid 1 MG TABLET PO (09:24)
[2022-10-27] MEDS: Zinc Oxide 20% Ointment 28.35 GM TUBE 1 APPL TOPICAL (09:25)
--- NOTE | 2022-10-27 11:29 | MHC.CLN ---
F/U PO INTAKE 50-100% DIET RX: REGULAR DIET -APPROPRIATE PT RECEIVING ENSURE TID PROVIDES 1050KCALS, 60G PROTEIN WITH 100% ACCEPTANCE CONTINUE TO MONITOR PO INTAKE AND ENCOURAGE SUPPLEMENT FOR WOUND HEALING
--- NOTE | 2022-10-27 11:44 | P.PNIM_ITS ---
Subjective Subjective Date of Service: 10/27/22 Interval History: seen and examined this morning follow up flu, covid, etoh withdrawal, saccral/left hip wounds no shortness of breath, cough improving no abdominal pain, nausea or vomiting Review of Systems Review of Systems: Yes all other systems are reviewed and are negative Constitutional Constitutional: Denies chills and Denies fever(s) Cardiovascular Cardiovascular: Denies chest pain, Denies palpitations and Denies dyspnea Respiratory Respiratory: Reports cough and Denies dyspnea Gastrointestinal Gastrointestinal: Denies abdominal pain Endocrine Endocrine: Denies palpitations Physical Exam Vital Signs: Vital Signs: Last Vital Signs Temp 97.8 F 10/27/22 08:00 Pulse 95 10/27/22 08:00 Resp 18 10/27/22 08:00 BP 131/61 10/27/22 08:00 Pulse Ox 93 10/27/22 08:00 O2 Del Method 10/27/22 08:00 BMI result Body Mass Index 26.5 Appearing in no acute distress lung sounds are clear to auscultation heart regular rate rhythm, clear S1, S2 positive bowel sounds, abdomen is soft, nontender neuro patient is alert x3, no focal deficits Objective Data Active Medications Acetaminophen (Acetaminophen 325 Mg Tablet) 650 mg PO Q6H PRN PRN Reason: Pain, Mild (Pain Scale 1-3) Last Admin: 10/26/22 00:00 Dose: 650 mg Documented By: DEYANIRA Collagenase (Collagenase Clostridium Hist. 30 Gm Tube) 1 appl TOPICAL DAILY [facility]; Protocol Last Admin: 10/26/22 08:22 Dose: 1 appl Documented By: ELEANOR Folic Acid (Folic Acid 1 Mg Tablet) 1 mg PO DAILY [facility] Last Admin: 10/27/22 09:24 Dose: 1 mg Documented By: MOE Heparin Sodium (Porcine) (Heparin Sodium,Porcine 5,000 Unit/Ml Vial) 5,000 unit SUBCUT Q12H [facility] Last Admin: 10/27/22 05:49 Dose: 5,000 unit Documented By: DEYANIRA Lisinopril (Lisinopril 10 Mg Tablet) 10 mg PO DAILY [facility]; Protocol Last Admin: 10/27/22 09:24 Dose: 10 mg Documented By: MOE Multivitamins/Vitamin C (Multivitamin Tablet) 1 tab PO DAILY [facility] Last Admin: 01/04/23 09:24 Dose: 1 tab Documented By: MOE Pharmacy Consult (Consult Rx Perform Med Rec) 1 each MISCELLANE ONCE PRN PRN Reason: Consult order Pharmacy Consult (Consult Rx Etoh Phenob Im/Po) 1 each MISCELLANE ONCE PRN; Protocol PRN Reason: Consult order Pharmacy Consult (Consult Rx Vancomycin Dosing) 1 each MISCELLANE DAILY [facility] Sodium Chloride (0.9 % Sodium Chloride Flush 3 Ml Syringe) 3 ml IVFLUSH QSHIFT [facility] Last Admin: 10/27/22 09:25 Dose: 3 ml Documented By: MOE Thiamine HCl (Thiamine Hcl 100 Mg Tablet) 100 mg PO DAILY [facility] Last Admin: 10/27/22 09:24 Dose: 100 mg Documented By: MOE Zinc Oxide (Zinc Oxide 20% Ointment 28.35 Gm Tube) 1 appl TOPICAL BID [facility]; Protocol Last Admin: 10/27/22 09:25 Dose: 1 appl Documented By: MOE Labs CBC & Chem 7: 10/26/22 08:41 10/27/22 06:54 Labs: Laboratory Results - last 24 hr 10/27/22 06:54 Estim Creat Clear Calc 126.1 Estimated GFR > 60 Assessment and Plan (1) Cellulitis of buttock: Status: Acute (2) Alcohol withdrawal: Status: Acute (3) COVID-19 virus infection: Status: Acute (4) Influenza A: Status: Acute Plan 67-year-old man presented with failure to thrive and severe alcoholism, he drinks on a daily basis and was found his home extremely unkept Severe buttocks excoriation. Improving per surgery likely chemical burn from prolonged contact with urine/stool Keep area clean wound consult rec santyl to small area of eschar and zinc oxide to pink granulating tissue Severe sepsis, multifactorial with cellulitis, COVID-19 and influenza. Resolved Met criteria with Hypothermia, tachycardia, lactic acidosis, now resolved Blood cultures negative to date COVID 19/influenza a No hypoxia noted, no remdesivir or steroids Chest x-ray showing lower lobe bronchiectasis with bronchial wall thickening suggestive of airway inflammation with airway infection s/p 7 day course of Unasyn and vancomycin completed course of tamiflu not requiring supplemental oxygen ID following Covid pos 10/24/21, recovered 10/28/21 Hypernatremia resolved d/c IVF Hypokalemia resolved with replacement Failure to thrive Likely secondary to alcohol use Physical therapy consultation- rec STR Add protein to diet, encourage oral intake Alcohol use disorder completed phenobarbital seen by recovery team continue Folic acid, thiamine, multivitamin discussed importance of alcohol cessation Elevated CPK Patient found on the ground, unable to determine how long he had been there Secondary to dehydration, fall CPK trending down Transaminitis. Trending down Secondary to alcohol abuse Elevated troponin. No delta No complaints of chest pain No ischemic changes on EKG Likely secondary to elevated CPK right renal lesion seen on CT - recommend outpatient CT with renal mass protocol vs MR with contrast for further characterization Hypertension continue lisinopril DVT prophylaxis with heparin Full code Attending Dr. Carlos ARMSTRONG to chair Dispo: PT rec STR once covid recovered 10/29/21 continued hospitalization for treatment of influenza a and COVID-19 along with severe buttocks cellulitis and failure to thrive, safe disposition ? Time Spent With Patient Time: Total time managing care of this patient today ____ minutes. Quality Stroke Does the patient have a stroke diagnosis?: No VTE Prior VTE?: No VTE Risk Level:: Medical - moderate - high VTE Device Contraindication: N/A - Device Ordered VTE Drug Contraindication: N/A - Med Ordered
[2022-10-27 11:50] VITALS: BP 131/55; PULSE 88; RESP 18; TEMP 36.6; O2SAT 95
[2022-10-27 15:09] VITALS: BP 123/61; PULSE 86; RESP 19; TEMP 36.4; O2SAT 92
--- NOTE | 2022-10-27 15:24 | MHC.CM.PN ---
Addendum entered by Laurie Macedo 10/27/22 15:47: [facility] offering a bed Tuesday, cov recovery . The patient accepts the bed. Original Note: DP STR via BLS. An update has been send to the facilities referred. PT REC STR.
[2022-10-27 19:17] VITALS: BP 115/61; PULSE 91; RESP 24; TEMP 36.4; O2SAT 92
[2022-10-28] VITALS (7 sets, daily range): BP systolic 103–140; BP diastolic 52–84; PULSE 81–98; RESP 18–30; TEMP 36.1–37.9; O2SAT 90–93
[2022-10-28] MEDS: Heparin Sodium,Porcine 5,000 UNIT/ML VIAL 5000 UNIT SUBCUT ×2 (06:39→16:57)
[2022-10-28 07:21] LABS: Estimated Glomerular Filt Rate > 60
[2022-10-28] MEDS: Thiamine HCL 100 MG TABLET PO (07:40)
[2022-10-28] MEDS: Folic Acid 1 MG TABLET PO (07:40)
[2022-10-28] MEDS: Multivitamin TABLET 1 TAB PO (07:40)
[2022-10-28] MEDS: traMADoL HCL 50 MG TABLET PO (07:40)
[2022-10-28] MEDS: lisinopriL 10 MG TABLET PO (07:41)
[2022-10-28] MEDS: Zinc Oxide 20% Ointment 28.35 GM TUBE 1 APPL TOPICAL ×2 (07:48→19:42)
[2022-10-28] MEDS: Collagenase Clostridium Hist. 30 GM TUBE 1 APPL TOPICAL (07:48)
--- NOTE | 2022-10-28 09:24 | P.PNIM_ITS ---
Subjective Subjective Date of Service: 10/28/22 Interval History: seen and examined this morning follow up flu, covid, etoh withdrawal, saccral/left hip wounds no shortness of breath, cough improving no abdominal pain, nausea or vomiting Review of Systems Review of Systems: Yes all other systems are reviewed and are negative Constitutional Constitutional: Denies chills and Denies fever(s) Cardiovascular Cardiovascular: Denies chest pain, Denies palpitations and Denies dyspnea Respiratory Respiratory: Reports cough and Denies dyspnea Gastrointestinal Gastrointestinal: Denies abdominal pain Endocrine Endocrine: Denies palpitations Physical Exam Vital Signs: Vital Signs: Last Vital Signs Temp 97.0 F 10/28/22 07:59 Pulse 93 10/28/22 07:59 Resp 20 10/28/22 07:59 BP 140/84 H 10/28/22 07:59 Pulse Ox 93 10/28/22 07:59 O2 Del Method 10/28/22 07:59 BMI result Body Mass Index 26.5 Appearing in no acute distress lung sounds are clear to auscultation heart regular rate rhythm, clear S1, S2 positive bowel sounds, abdomen is soft, nontender neuro patient is alert x3, no focal deficits Objective Data Active Medications Acetaminophen (Acetaminophen 325 Mg Tablet) 650 mg PO Q6H PRN PRN Reason: Pain, Mild (Pain Scale 1-3) Last Admin: 10/26/22 00:00 Dose: 650 mg Documented By: DEYANIRA Collagenase (Collagenase Clostridium Hist. 30 Gm Tube) 1 appl TOPICAL DAILY [facility]; Protocol Last Admin: 10/28/22 07:48 Dose: 1 appl Documented By: DANN Folic Acid (Folic Acid 1 Mg Tablet) 1 mg PO DAILY [facility] Last Admin: 10/28/22 07:40 Dose: 1 mg Documented By: DANN Heparin Sodium (Porcine) (Heparin Sodium,Porcine 5,000 Unit/Ml Vial) 5,000 unit SUBCUT Q12H [facility] Last Admin: 10/28/22 06:39 Dose: 5,000 unit Documented By: ELIZA Lisinopril (Lisinopril 10 Mg Tablet) 10 mg PO DAILY [facility]; Protocol Last Admin: 10/28/22 07:41 Dose: 10 mg Documented By: DANN Multivitamins/Vitamin C (Multivitamin Tablet) 1 tab PO DAILY [facility] Last Admin: 10/28/22 07:40 Dose: 1 tab Documented By: DANN Pharmacy Consult (Consult Rx Perform Med Rec) 1 each MISCELLANE ONCE PRN PRN Reason: Consult order Pharmacy Consult (Consult Rx Etoh Phenob Im/Po) 1 each MISCELLANE ONCE PRN; Protocol PRN Reason: Consult order Pharmacy Consult (Consult Rx Vancomycin Dosing) 1 each MISCELLANE DAILY [facility] Sodium Chloride (0.9 % Sodium Chloride Flush 3 Ml Syringe) 3 ml IVFLUSH QSHIFT [facility] Last Admin: 10/28/22 07:41 Dose: 3 ml Documented By: DANN Thiamine HCl (Thiamine Hcl 100 Mg Tablet) 100 mg PO DAILY [facility] Last Admin: 10/28/22 07:40 Dose: 100 mg Documented By: DANN Zinc Oxide (Zinc Oxide 20% Ointment 28.35 Gm Tube) 1 appl TOPICAL BID [facility]; Protocol Last Admin: 10/28/22 07:48 Dose: 1 appl Documented By: DANN Labs CBC & Chem 7: 10/26/22 08:41 10/28/22 05:33 Labs: Laboratory Results - last 24 hr 10/28/22 05:33 Estim Creat Clear Calc 130.0 Estimated GFR > 60 Assessment and Plan (1) Cellulitis of buttock: Status: Acute (2) Alcohol withdrawal: Status: Acute (3) COVID-19 virus infection: Status: Acute (4) Influenza A: Status: Acute Plan 67-year-old man presented with failure to thrive and severe alcoholism, he drinks on a daily basis and was found his home extremely unkept Severe buttocks excoriation. Improving per surgery likely chemical burn from prolonged contact with urine/stool Keep area clean wound consult rec santyl to small area of eschar and zinc oxide to pink granulating tissue Severe sepsis, multifactorial with cellulitis, COVID-19 and influenza. Resolved Met criteria with Hypothermia, tachycardia, lactic acidosis, now resolved Blood cultures negative to date COVID 19/influenza a No hypoxia noted, no remdesivir or steroids Chest x-ray showing lower lobe bronchiectasis with bronchial wall thickening suggestive of airway inflammation with airway infection s/p 7 day course of Unasyn and vancomycin completed course of tamiflu not requiring supplemental oxygen ID following Covid pos 10/24/21, recovered 10/28/21 Hypernatremia resolved Hypokalemia resolved with replacement Failure to thrive Likely secondary to alcohol use Physical therapy consultation- rec STR protein to diet, encourage oral intake Alcohol use disorder completed phenobarbital seen by recovery team continue Folic acid, thiamine, multivitamin discussed importance of alcohol cessation Elevated CPK s/p priot to admission patient found on the ground, unable to determine how long he had been there Secondary to dehydration, fall CPK trending down Transaminitis. Trending down Secondary to alcohol abuse Elevated troponin. No delta No complaints of chest pain No ischemic changes on EKG Likely secondary to elevated CPK right renal lesion seen on CT - recommend outpatient CT with renal mass protocol vs MR with contrast for further characterization Hypertension continue lisinopril DVT prophylaxis with heparin Full code Attending Dr. Carlos ARMSTRONG to chair Dispo: PT rec STR once covid recovered 10/29/21 continued hospitalization for treatment of influenza a and COVID-19 along with severe buttocks cellulitis and failure to thrive, safe disposition ? Time Spent With Patient Time: Total time managing care of this patient today ____ minutes. Quality Stroke Does the patient have a stroke diagnosis?: No VTE Prior VTE?: No VTE Risk Level:: Medical - moderate - high VTE Device Contraindication: N/A - Device Ordered VTE Drug Contraindication: N/A - Med Ordered
[2022-10-29] VITALS (7 sets, daily range): BP systolic 126–135; BP diastolic 68–84; PULSE 79–89; RESP 17–20; TEMP 36.7–37.7; O2SAT 91–95
[2022-10-29] MEDS: Heparin Sodium,Porcine 5,000 UNIT/ML VIAL 5000 UNIT SUBCUT ×2 (05:05→16:30)
[2022-10-29 07:26] LABS: Glucose, Whole Blood 76 mg/dL (60-115)
[2022-10-29] MEDS: Folic Acid 1 MG TABLET PO (08:19)
[2022-10-29] MEDS: lisinopriL 10 MG TABLET PO (08:19)
[2022-10-29] MEDS: Multivitamin TABLET 1 TAB PO (08:19)
[2022-10-29] MEDS: Thiamine HCL 100 MG TABLET PO (08:19)
[2022-10-29] MEDS: Zinc Oxide 20% Ointment 28.35 GM TUBE 1 APPL TOPICAL ×2 (08:20→23:15)
[2022-10-29] MEDS: Collagenase Clostridium Hist. 30 GM TUBE 1 APPL TOPICAL (08:20)
--- NOTE | 2022-10-29 08:46 | MHC.CM.PN ---
Addendum entered by Laurie Macedo 10/29/22 13:24: The [facility] will be on this weekend. Send documentation from PT note tomorrow. Patient may be able to dc Tuesday10/30/22. Addendum entered by Laurie Macedo 10/29/22 13:05: The facility requested an updated PT note. The Pt was seen by PT. The documentation was sent. The facility has declined to accept the patient today. They will reconsider the patient if we can provide documentation showing that he is participating. The PA spoke with the patient. He did not understand that admission to [facility] would be effected by the PT coming to see him today. He has agreed to participate with PT moving forward. CM will continue to follow. Original Note: IMM 10/28/22 Patient is covid recovered today. He has been offered a bed @ [facility]. Waiting on confirmation and which building he will transfer to.
--- NOTE | 2022-10-29 11:12 | MHC.CLN ---
F/U PO INTAKE VARIABLE RANGING FROM 0-100% DIET RX: REGULAR DIET -APPROPRIATE PT RECEIVING ENSURE TID PROVIDES 1050KCALS, 60G PROTEIN WITH 100% ACCEPTANCE CONTINUE TO MONITOR PO INTAKE AND ENCOURAGE SUPPLEMENT FOR WOUND HEALING
--- NOTE | 2022-10-29 16:00 | HO.PM.IMPN ---
Subjective Subjective Date of Service: 10/29/22 Interval History: seen and examined this morning Follow-up for multiple issues No overnight events Awaiting placement in rehab. No specific complaints this morning Review of Systems Review of Systems: Yes all other systems are reviewed and are negative Constitutional Constitutional: Denies chills and Denies fever(s) Cardiovascular Cardiovascular: Denies chest pain Gastrointestinal Gastrointestinal: Denies abdominal pain, Denies nausea and Denies vomiting Physical Exam Vital Signs: Vital Signs: Last Vital Signs Temp 98.5 F 10/29/22 15:40 Pulse 84 10/29/22 15:40 Resp 18 10/29/22 15:40 BP 135/84 10/29/22 15:40 Pulse Ox 92 10/29/22 15:40 O2 Del Method 10/29/22 15:40 BMI result Body Mass Index 26.5 Const: General: cooperative, comfortable, alert and awake Nutritional Appearance: overweight Resp: Effort & Inspection: normal respiratory effort and able to speak in complete sentences Cardio: Rate: regular rate Heart sounds: S1 normal heart sound present and S2 normal heart sound present GI: Inspection: No distended Palpation (GI): Soft to palpation and nontender Skin: Other: sacral wound left hip wound Neuro: General: CN's II-XI intact bilaterally Extrem: Other: able to move all extremities Objective Data Active Medications Acetaminophen (Acetaminophen 325 Mg Tablet) 650 mg PO Q6H PRN PRN Reason: Pain, Mild (Pain Scale 1-3) Last Admin: 10/26/22 00:00 Dose: 650 mg Documented By: DEYANIRA Collagenase (Collagenase Clostridium Hist. 30 Gm Tube) 1 appl TOPICAL DAILY [facility]; Protocol Last Admin: 10/29/22 08:20 Dose: 1 appl Documented By: RAYSA Folic Acid (Folic Acid 1 Mg Tablet) 1 mg PO DAILY [facility] Last Admin: 10/29/22 08:19 Dose: 1 mg Documented By: RAYSA Heparin Sodium (Porcine) (Heparin Sodium,Porcine 5,000 Unit/Ml Vial) 5,000 unit SUBCUT Q12H [facility] Last Admin: 10/29/22 05:05 Dose: 5,000 unit Documented By: FLORENCIO Lisinopril (Lisinopril 10 Mg Tablet) 10 mg PO DAILY [facility]; Protocol Last Admin: 10/29/22 08:19 Dose: 10 mg Documented By: RAYSA Multivitamins/Vitamin C (Multivitamin Tablet) 1 tab PO DAILY [facility] Last Admin: 10/29/22 08:19 Dose: 1 tab Documented By: RAYSA Pharmacy Consult (Consult Rx Perform Med Rec) 1 each MISCELLANE ONCE PRN PRN Reason: Consult order Pharmacy Consult (Consult Rx Etoh Phenob Im/Po) 1 each MISCELLANE ONCE PRN; Protocol PRN Reason: Consult order Pharmacy Consult (Consult Rx Vancomycin Dosing) 1 each MISCELLANE DAILY [facility] Sodium Chloride (0.9 % Sodium Chloride Flush 3 Ml Syringe) 3 ml IVFLUSH QSHIFT [facility] Last Admin: 10/29/22 08:20 Dose: 3 ml Documented By: RAYSA Thiamine HCl (Thiamine Hcl 100 Mg Tablet) 100 mg PO DAILY [facility] Last Admin: 10/29/22 08:19 Dose: 100 mg Documented By: RAYSA Zinc Oxide (Zinc Oxide 20% Ointment 28.35 Gm Tube) 1 appl TOPICAL BID [facility]; Protocol Last Admin: 10/29/22 08:20 Dose: 1 appl Documented By: RAYSA Labs 10/26/22 08:41 10/28/22 05:33 Labs: Laboratory Results - last 24 hr 10/29/22 07:10 POC Glucose 76 Assessment and Plan (1) Alcohol withdrawal: Status: Acute (2) COVID-19 virus infection: Status: Acute Plan 67-year-old man presented with failure to thrive and severe alcoholism, he drinks on a daily basis and was found his home extremely unkept Severe buttocks excoriation. Improving per surgery likely chemical burn from prolonged contact with urine/stool Keep area clean wound consult rec santyl to small area of eschar and zinc oxide to pink granulating tissue Severe sepsis, multifactorial with cellulitis, COVID-19 and influenza. Resolved Met criteria with Hypothermia, tachycardia, lactic acidosis, now resolved Blood cultures negative to date COVID 19/influenza a No hypoxia noted, no remdesivir or steroids Chest x-ray showing lower lobe bronchiectasis with bronchial wall thickening suggestive of airway inflammation with airway infection s/p 7 day course of Unasyn and vancomycin completed course of tamiflu not requiring supplemental oxygen ID following Covid pos 10/24/21, recovered 10/28/21 Hypernatremia resolved Hypokalemia resolved with replacement Failure to thrive Likely secondary to alcohol use Physical therapy consultation- rec STR protein to diet, encourage oral intake Alcohol use disorder completed phenobarbital seen by recovery team continue Folic acid, thiamine, multivitamin discussed importance of alcohol cessation seen by addiction medicine - seen multiple times, declines resources, or referrals etc Elevated CPK s/p priot to admission patient found on the ground, unable to determine how long he had been there Secondary to dehydration, fall CPK trending down Transaminitis. Trending down Secondary to alcohol abuse Elevated troponin. No delta No complaints of chest pain No ischemic changes on EKG Likely secondary to elevated CPK right renal lesion seen on CT - recommend outpatient CT with renal mass protocol vs MR with contrast for further characterization Hypertension continue lisinopril DVT prophylaxis with heparin Full code Attending Dr. Carlos ARMSTRONG to chair Dispo: PT rec STR once covid recovered 10/29/21. did not work with PT today, educated importance of working with physical therapy. plan for repeat PT eval in am continued hospitalization for treatment of influenza a and COVID-19 along with severe buttocks cellulitis and failure to thrive, safe disposition ? Time Spent With Patient Time: Total time managing care of this patient today ____ minutes. Quality Stroke Does the patient have a stroke diagnosis?: No VTE Prior VTE?: No VTE Risk Level:: Medical - moderate - high VTE Device Contraindication: N/A - Device Ordered VTE Drug Contraindication: N/A - Med Ordered
[2022-10-30 03:35] VITALS: BP 129/71; PULSE 84; RESP 20; TEMP 37.2; O2SAT 92
[2022-10-30] MEDS: Heparin Sodium,Porcine 5,000 UNIT/ML VIAL 5000 UNIT SUBCUT ×2 (05:56→17:48)
[2022-10-30 07:52] VITALS: BP 125/74; PULSE 84; RESP 18; TEMP 37.2; O2SAT 93
[2022-10-30] MEDS: Multivitamin TABLET 1 TAB PO (09:20)
[2022-10-30] MEDS: lisinopriL 10 MG TABLET PO (09:20)
[2022-10-30] MEDS: Thiamine HCL 100 MG TABLET PO (09:20)
[2022-10-30] MEDS: Folic Acid 1 MG TABLET PO (09:20)
--- NOTE | 2022-10-30 10:29 | HO.PM.IMPN ---
Subjective Subjective Date of Service: 10/30/22 Interval History: seen and examined this morning Follow-up for multiple issues No overnight events Awaiting placement in rehab. No specific complaints this morning Review of Systems Review of Systems: Yes all other systems are reviewed and are negative Constitutional Constitutional: Denies chills and Denies fever(s) Cardiovascular Cardiovascular: Denies chest pain Gastrointestinal Gastrointestinal: Denies abdominal pain, Denies nausea and Denies vomiting Physical Exam Vital Signs: Vital Signs: Last Vital Signs Temp 98.9 F 10/30/22 07:52 Pulse 84 10/30/22 07:52 Resp 18 10/30/22 07:52 BP 125/74 10/30/22 07:52 Pulse Ox 93 10/30/22 07:52 O2 Del Method 10/30/22 07:52 BMI result Body Mass Index 26.5 Appearing in no acute distress lung sounds are clear to auscultation heart regular rate rhythm, clear S1, S2 positive bowel sounds, abdomen is soft, nontender neuro patient is alert x3, no focal deficits Objective Data Active Medications Acetaminophen (Acetaminophen 325 Mg Tablet) 650 mg PO Q6H PRN PRN Reason: Pain, Mild (Pain Scale 1-3) Last Admin: 10/26/22 00:00 Dose: 650 mg Documented By: DEYANIRA Collagenase (Collagenase Clostridium Hist. 30 Gm Tube) 1 appl TOPICAL DAILY [facility]; Protocol Last Admin: 10/30/22 09:55 Dose: Not Given Documented By: DANN Non-Admin Reason: Previously Administered Folic Acid (Folic Acid 1 Mg Tablet) 1 mg PO DAILY [facility] Last Admin: 10/30/22 09:20 Dose: 1 mg Documented By: DANN Heparin Sodium (Porcine) (Heparin Sodium,Porcine 5,000 Unit/Ml Vial) 5,000 unit SUBCUT Q12H [facility] Last Admin: 10/30/22 05:56 Dose: 5,000 unit Documented By: TOREY Lisinopril (Lisinopril 10 Mg Tablet) 10 mg PO DAILY [facility]; Protocol Last Admin: 10/30/22 09:20 Dose: 10 mg Documented By: DANN Multivitamins/Vitamin C (Multivitamin Tablet) 1 tab PO DAILY [facility] Last Admin: 10/30/22 09:20 Dose: 1 tab Documented By: DANN Pharmacy Consult (Consult Rx Perform Med Rec) 1 each MISCELLANE ONCE PRN PRN Reason: Consult order Pharmacy Consult (Consult Rx Etoh Phenob Im/Po) 1 each MISCELLANE ONCE PRN; Protocol PRN Reason: Consult order Pharmacy Consult (Consult Rx Vancomycin Dosing) 1 each MISCELLANE DAILY [facility] Sodium Chloride (0.9 % Sodium Chloride Flush 3 Ml Syringe) 3 ml IVFLUSH QSHIFT [facility] Last Admin: 10/30/22 09:20 Dose: 3 ml Documented By: DANN Thiamine HCl (Thiamine Hcl 100 Mg Tablet) 100 mg PO DAILY [facility] Last Admin: 10/30/22 09:20 Dose: 100 mg Documented By: DANN Zinc Oxide (Zinc Oxide 20% Ointment 28.35 Gm Tube) 1 appl TOPICAL BID [facility]; Protocol Last Admin: 10/30/22 09:55 Dose: Not Given Documented By: DANN Non-Admin Reason: Previously Administered Labs 10/26/22 08:41 10/28/22 05:33 Assessment and Plan (1) Alcohol withdrawal: Status: Acute (2) COVID-19 virus infection: Status: Acute Plan 67-year-old man presented with failure to thrive and severe alcoholism, he drinks on a daily basis and was found his home extremely unkept Severe buttocks excoriation. Improving per surgery likely chemical burn from prolonged contact with urine/stool Keep area clean wound consult rec santyl to small area of eschar and zinc oxide to pink granulating tissue monitor daily Severe sepsis, multifactorial with cellulitis, COVID-19 and influenza. Resolved Met criteria with Hypothermia, tachycardia, lactic acidosis, now resolved Blood cultures negative to date COVID 19/influenza a No hypoxia noted, no remdesivir or steroids Chest x-ray showing lower lobe bronchiectasis with bronchial wall thickening suggestive of airway inflammation with airway infection s/p 7 day course of Unasyn and vancomycin completed course of tamiflu not requiring supplemental oxygen ID following Covid pos 10/24/21, recovered 10/28/21 Hypernatremia resolved Hypokalemia resolved with replacement Failure to thrive Likely secondary to alcohol use Physical therapy consultation- rec STR protein to diet, encourage oral intake Alcohol use disorder completed phenobarbital seen by recovery team continue Folic acid, thiamine, multivitamin discussed importance of alcohol cessation seen by addiction medicine - seen multiple times, declines resources, or referrals etc Elevated CPK s/p priot to admission patient found on the ground, unable to determine how long he had been there Secondary to dehydration, fall CPK trending down Transaminitis. Trending down Secondary to alcohol abuse Elevated troponin. No delta No complaints of chest pain No ischemic changes on EKG Likely secondary to elevated CPK right renal lesion seen on CT - recommend outpatient CT with renal mass protocol vs MR with contrast for further characterization Hypertension continue lisinopril DVT prophylaxis with heparin Full code Attending Dr. Hanh ARMSTRONG to chair Dispo: PT rec STR once covid recovered 10/29/21. did not work with PT today, educated importance of working with physical therapy. plan for repeat PT eval in am continued hospitalization for treatment of influenza a and COVID-19 along with severe buttocks cellulitis and failure to thrive, safe disposition ? Time Spent With Patient Time: Total time managing care of this patient today ____ minutes. Quality Stroke Does the patient have a stroke diagnosis?: No VTE Prior VTE?: No VTE Risk Level:: Medical - moderate - high VTE Device Contraindication: N/A - Device Ordered VTE Drug Contraindication: N/A - Med Ordered
[2022-10-30 11:09] VITALS: BP 140/76; PULSE 91; RESP 17; TEMP 37.2; O2SAT 92
--- NOTE | 2022-10-30 12:19 | PC.NURSE ---
coccyx wound dressing changed - santyl on slough, zinc around wound edges, absorbent pad in place. dressing CDI.
[2022-10-30 15:02] VITALS: BP 117/61; PULSE 97; RESP 20; TEMP 36.7; O2SAT 90
[2022-10-30 19:01] VITALS: BP 117/59; PULSE 92; RESP 20; TEMP 36.6; O2SAT 92
[2022-10-30 23:43] VITALS: BP 126/67; PULSE 96; RESP 17; TEMP 37.7; O2SAT 90
[2022-10-31] VITALS (7 sets, daily range): BP systolic 94–146; BP diastolic 57–87; PULSE 83–94; RESP 17–40; TEMP 37.1–38.8; O2SAT 87–92
[2022-10-31] MEDS: Zinc Oxide 20% Ointment 28.35 GM TUBE 1 APPL TOPICAL ×2 (00:17→20:08)
[2022-10-31] MEDS: Heparin Sodium,Porcine 5,000 UNIT/ML VIAL 5000 UNIT SUBCUT ×2 (05:41→18:41)
[2022-10-31] MEDS: lisinopriL 10 MG TABLET PO (09:27)
[2022-10-31] MEDS: Folic Acid 1 MG TABLET PO (09:27)
[2022-10-31] MEDS: Multivitamin TABLET 1 TAB PO (09:27)
[2022-10-31] MEDS: Thiamine HCL 100 MG TABLET PO (09:27)
--- NOTE | 2022-10-31 10:52 | HO.PM.IMPN ---
Subjective Subjective Date of Service: 10/31/22 Interval History: seen and examined this morning Follow-up for multiple issues No overnight events Awaiting placement in rehab. No specific complaints this morning Review of Systems Review of Systems: Yes all other systems are reviewed and are negative Constitutional Constitutional: Denies chills and Denies fever(s) Cardiovascular Cardiovascular: Denies chest pain Gastrointestinal Gastrointestinal: Denies abdominal pain, Denies nausea and Denies vomiting Physical Exam Vital Signs: Vital Signs: Last Vital Signs Temp 98.9 F 10/31/22 08:00 Pulse 87 10/31/22 08:00 Resp 17 10/31/22 08:00 BP 142/87 H 10/31/22 08:00 Pulse Ox 91 L 10/31/22 08:00 O2 Del Method 10/31/22 04:00 BMI result Body Mass Index 26.5 Appearing in no acute distress lung sounds are clear to auscultation heart regular rate rhythm, clear S1, S2 positive bowel sounds, abdomen is soft, nontender neuro patient is alert x3, no focal deficits Objective Data Active Medications Acetaminophen (Acetaminophen 325 Mg Tablet) 650 mg PO Q6H PRN PRN Reason: Pain, Mild (Pain Scale 1-3) Last Admin: 10/26/22 00:00 Dose: 650 mg Documented By: DEYANIRA Folic Acid (Folic Acid 1 Mg Tablet) 1 mg PO DAILY [facility] Last Admin: 10/31/22 09:27 Dose: 1 mg Documented By: DANN Heparin Sodium (Porcine) (Heparin Sodium,Porcine 5,000 Unit/Ml Vial) 5,000 unit SUBCUT Q12H [facility] Last Admin: 10/31/22 05:41 Dose: 5,000 unit Documented By: TOREY Lisinopril (Lisinopril 10 Mg Tablet) 10 mg PO DAILY [facility]; Protocol Last Admin: 10/31/22 09:27 Dose: 10 mg Documented By: DANN Multivitamins/Vitamin C (Multivitamin Tablet) 1 tab PO DAILY [facility] Last Admin: 10/31/22 09:27 Dose: 1 tab Documented By: DANN Pharmacy Consult (Consult Rx Perform Med Rec) 1 each MISCELLANE ONCE PRN PRN Reason: Consult order Pharmacy Consult (Consult Rx Etoh Phenob Im/Po) 1 each MISCELLANE ONCE PRN; Protocol PRN Reason: Consult order Pharmacy Consult (Consult Rx Vancomycin Dosing) 1 each MISCELLANE DAILY [facility] Sodium Chloride (0.9 % Sodium Chloride Flush 3 Ml Syringe) 3 ml IVFLUSH QSHIFT [facility] Last Admin: 10/31/22 09:27 Dose: 3 ml Documented By: DANN Thiamine HCl (Thiamine Hcl 100 Mg Tablet) 100 mg PO DAILY [facility] Last Admin: 10/31/22 09:27 Dose: 100 mg Documented By: DANN Zinc Oxide (Zinc Oxide 20% Ointment 28.35 Gm Tube) 1 appl TOPICAL BID [facility]; Protocol Last Admin: 10/31/22 09:52 Dose: Not Given Documented By: DANN Non-Admin Reason: Previously Administered Labs 10/26/22 08:41 10/28/22 05:33 Assessment and Plan (1) Alcohol withdrawal: Status: Acute (2) COVID-19 virus infection: Status: Acute Plan 67-year-old man presented with failure to thrive and severe alcoholism, he drinks on a daily basis and was found his home extremely unkept Severe buttocks excoriation. Improving per surgery likely chemical burn from prolonged contact with urine/stool Keep area clean wound consult rec santyl to small area of eschar and zinc oxide to pink granulating tissue. stop santyl monitor daily Severe sepsis, multifactorial with cellulitis, COVID-19 and influenza. Resolved Met criteria with Hypothermia, tachycardia, lactic acidosis, now resolved Blood cultures negative to date COVID 19/influenza a No hypoxia noted, no remdesivir or steroids Chest x-ray showing lower lobe bronchiectasis with bronchial wall thickening suggestive of airway inflammation with airway infection s/p 7 day course of Unasyn and vancomycin completed course of tamiflu not requiring supplemental oxygen ID following Covid pos 10/24/21, recovered Hypernatremia resolved Hypokalemia resolved with replacement Failure to thrive Likely secondary to alcohol use Physical therapy consultation- rec STR protein to diet, encourage oral intake Alcohol use disorder completed phenobarbital seen by recovery team continue Folic acid, thiamine, multivitamin discussed importance of alcohol cessation seen by addiction medicine - seen multiple times, declines resources, or referrals etc Elevated CPK s/p priot to admission patient found on the ground, unable to determine how long he had been there Secondary to dehydration, fall CPK trending down Transaminitis. Trending down Secondary to alcohol abuse Elevated troponin. No delta No complaints of chest pain No ischemic changes on EKG Likely secondary to elevated CPK right renal lesion seen on CT - recommend outpatient CT with renal mass protocol vs MR with contrast for further characterization Hypertension continue lisinopril DVT prophylaxis with heparin Full code Attending Dr. Hanh ARMSTRONG to chair Dispo: PT rec STR once covid recovered 10/29/21. did not work with PT today, educated importance of working with physical therapy. plan for repeat PT eval in am continued hospitalization for treatment of influenza a and COVID-19 along with severe buttocks cellulitis and failure to thrive, safe disposition ? Time Spent With Patient Time: Total time managing care of this patient today ____ minutes. Quality Stroke Does the patient have a stroke diagnosis?: No VTE Prior VTE?: No VTE Risk Level:: Medical - moderate - high VTE Device Contraindication: N/A - Device Ordered VTE Drug Contraindication: N/A - Med Ordered
--- NOTE | 2022-10-31 12:45 | PC.NURSE ---
per OOB order this nurse got pt up to recliner with 1 other [employer]EEKDAY BAB[employer]TER and 1 other RN. was able to get pt in recliner however it was difficult due to pt not baring weight on feet and legs to help. when getting pt out of recliner back into bed it required 2 strong WEEKDAY BABYSITTER, this nurse and the alyssa steady to get pt back into bed. pt did not tolerate well. pt very deconditioned and was not able to pull self up into alyssa steady and was slumped over in alyssa steady. we were able to safely get pt back into bed however this RN does not recommend getting pt out of bed without PT eval - to get pt stronger to safely get pt OOB/ ambulate with 1 assist. pt was basically weight and almost flaccid. notified.
[2022-10-31] MEDS: Acetaminophen 325 MG TABLET 650 MG PO (20:36)
[2022-11-01] VITALS (7 sets, daily range): BP systolic 98–118; BP diastolic 58–67; PULSE 77–86; RESP 20–32; TEMP 36.1–38.2; O2SAT 91–97
[2022-11-01] MEDS: Heparin Sodium,Porcine 5,000 UNIT/ML VIAL 5000 UNIT SUBCUT ×2 (05:17→18:05)
[2022-11-01] MEDS: Acetaminophen 325 MG TABLET 650 MG PO (05:17)
[2022-11-01] MEDS: Folic Acid 1 MG TABLET PO (08:50)
[2022-11-01] MEDS: lisinopriL 10 MG TABLET PO (08:50)
[2022-11-01] MEDS: Multivitamin TABLET 1 TAB PO (08:50)
[2022-11-01] MEDS: Thiamine HCL 100 MG TABLET PO (08:50)
--- NOTE | 2022-11-01 09:08 | P.PNIM_ITS ---
Subjective Subjective Date of Service: 11/01/22 Interval History: seen and examined this morning Follow-up for multiple issues now with feverm, but no pain or discomfort Awaiting placement in rehab. Review of Systems Review of Systems: Yes all other systems are reviewed and are negative Constitutional Constitutional: Denies chills and Denies fever(s) Cardiovascular Cardiovascular: Denies chest pain Gastrointestinal Gastrointestinal: Denies abdominal pain, Denies nausea and Denies vomiting Physical Exam Vital Signs: Vital Signs: Last Vital Signs Temp 98.9 F 11/01/22 08:00 Pulse 77 11/01/22 08:00 Resp 31 H 11/01/22 08:00 BP 98/58 L 11/01/22 08:00 Pulse Ox 97 11/01/22 08:00 O2 Del Method 11/01/22 08:00 O2 Flow Rate 1 11/01/22 08:00 BMI result Body Mass Index 26.5 Appearing in no acute distress lung sounds are clear to auscultation heart regular rate rhythm, clear S1, S2 positive bowel sounds, abdomen is soft, nontender neuro patient is alert x3, no focal deficits Objective Data Active Medications Acetaminophen (Acetaminophen 325 Mg Tablet) 650 mg PO Q6H PRN PRN Reason: Pain, Mild (Pain Scale 1-3) Last Admin: 11/01/22 05:17 Dose: 650 mg Documented By: TOREY Folic Acid (Folic Acid 1 Mg Tablet) 1 mg PO DAILY [facility] Last Admin: 11/01/22 08:50 Dose: 1 mg Documented By: DANN Heparin Sodium (Porcine) (Heparin Sodium,Porcine 5,000 Unit/Ml Vial) 5,000 unit SUBCUT Q12H [facility] Last Admin: 11/01/22 05:17 Dose: 5,000 unit Documented By: TOREY Lisinopril (Lisinopril 10 Mg Tablet) 10 mg PO DAILY [facility]; Protocol Last Admin: 11/01/22 08:50 Dose: 10 mg Documented By: DANN Multivitamins/Vitamin C (Multivitamin Tablet) 1 tab PO DAILY [facility] Last Admin: 11/01/22 08:50 Dose: 1 tab Documented By: DANN Pharmacy Consult (Consult Rx Perform Med Rec) 1 each MISCELLANE ONCE PRN PRN Reason: Consult order Pharmacy Consult (Consult Rx Etoh Phenob Im/Po) 1 each MISCELLANE ONCE PRN; Protocol PRN Reason: Consult order Pharmacy Consult (Consult Rx Vancomycin Dosing) 1 each MISCELLANE DAILY [facility] Sodium Chloride (0.9 % Sodium Chloride Flush 3 Ml Syringe) 3 ml IVFLUSH QSHIFT [facility] Last Admin: 11/01/22 08:51 Dose: 3 ml Documented By: DANN Thiamine HCl (Thiamine Hcl 100 Mg Tablet) 100 mg PO DAILY [facility] Last Admin: 11/01/22 08:50 Dose: 100 mg Documented By: DANN Zinc Oxide (Zinc Oxide 20% Ointment 28.35 Gm Tube) 1 appl TOPICAL BID [facility]; Protocol Last Admin: 11/01/22 09:05 Dose: Not Given Documented By: DANN Non-Admin Reason: previously applied with dressing change Labs 10/26/22 08:41 10/28/22 05:33 Assessment and Plan (1) Alcohol withdrawal: Status: Acute (2) COVID-19 virus infection: Status: Acute Plan 67-year-old man presented with failure to thrive and severe alcoholism, he drinks on a daily basis and was found his home extremely unkept SIRS criteria fever, tachypnea obtain cxr, ua, blood cx stat no complaints from patient tylenol for pain RPP Stage II pressure ulcer, present on admission per surgery likely chemical burn from prolonged contact with urine/stool Keep area clean wound consult rec santyl to small area of eschar and zinc oxide to pink granulating tissue. stop santyl monitor daily Severe sepsis, multifactorial with cellulitis, COVID-19 and influenza. Resolved Met criteria with Hypothermia, tachycardia, lactic acidosis, now resolved Blood cultures negative to date COVID 19/influenza a No hypoxia noted, no remdesivir or steroids Chest x-ray showing lower lobe bronchiectasis with bronchial wall thickening suggestive of airway inflammation with airway infection s/p 7 day course of Unasyn and vancomycin completed course of tamiflu not requiring supplemental oxygen ID following Covid pos 10/24/21, recovered Hypernatremia resolved Hypokalemia resolved with replacement Failure to thrive Likely secondary to alcohol use Physical therapy consultation- rec STR protein to diet, encourage oral intake Alcohol use disorder completed phenobarbital seen by recovery team continue Folic acid, thiamine, multivitamin discussed importance of alcohol cessation seen by addiction medicine - seen multiple times, declines resources, or referrals etc Elevated CPK s/p priot to admission patient found on the ground, unable to determine how long he had been there Secondary to dehydration, fall CPK trending down Transaminitis. Trending down Secondary to alcohol abuse Elevated troponin. No delta No complaints of chest pain No ischemic changes on EKG Likely secondary to elevated CPK right renal lesion seen on CT - recommend outpatient CT with renal mass protocol vs MR with contrast for further characterization Hypertension continue lisinopril DVT prophylaxis with heparin Full code Attending Dr. Hanh StoneOB to chair Dispo: PT rec STR once covid recovered 10/29/21. did not work with PT today, educated importance of working with physical therapy. plan for repeat PT eval in am continued hospitalization for treatment of influenza a and COVID-19 along with severe buttocks cellulitis and failure to thrive, safe disposition ? Time Spent With Patient Time: Total time managing care of this patient today ____ minutes. Quality Stroke Does the patient have a stroke diagnosis?: No VTE Prior VTE?: No VTE Risk Level:: Medical - moderate - high VTE Device Contraindication: N/A - Device Ordered VTE Drug Contraindication: N/A - Med Ordered
[2022-11-01 09:18] LABS: Hematocrit 29.5 % (42.0-52.0); Hemoglobin 9.7 g/dl (14.0-18.0); Mean Corpuscular HGB Conc 32.9 g/dl (31.0-36.0); Mean Corpuscular Volume 97.4 fL (80.0-98.0); Mean Platelet Volume 9.9 fL (9.4-12.4); Platelet Count 690 X10*3/uL (160-400); Red Blood Count 3.03 X10*6/uL (4.60-5.80); Red Cell Distribution Width 14.6 % (11.0-16.0); White Blood Count 9.4 X10*3/uL (4.8-10.8)
--- NOTE | 2022-11-01 09:26 | MHC.CM.PN ---
Addendum entered by Lauire Macedo 11/01/22 10:01: Patient work up for sepsis per PA Original Note: Patient covid recovered 10/29/22. [facility] has been following for covid recovery. They did not accept the patient 10/29/22 r/t lack of participation (due to pain and stiffness) 10/29/22 PT note. The Facility is following. They will accept the patient once a note is provided that shows participation with PT. The PA spoke with the patient Tuesday about participating with therapy. The patient has agreed to participate. PT did not see the patient over the week end. The referral will be updated once PT documentation is available.
[2022-11-01 09:36] LABS: Anion Gap 9 (12-20); Blood Urea Nitrogen 14 mg/dL (9-16); Calcium 7.6 mg/dL (8.4-10.2); Carbon Dioxide 28 mmol/L (22-29); Chloride 103 mmol/L (96-108); Creatinine Clr Calc Pharmacy 117.2; Estimated Glomerular Filt Rate > 60; Glucose Random 80 mg/dL (60-115); Potassium 4.2 mmol/L (3.3-5.1); Sodium 136 mmol/L (135-145)
--- NOTE | 2022-11-01 11:49 | MHC.CLN ---
F/U PO INTAKE VARIABLE RANGING FROM 25-100% DIET RX: REGULAR DIET -APPROPRIATE PT RECEIVING ENSURE TID PROVIDES 1050KCALS, 60G PROTEIN WITH 100% ACCEPTANCE CONTINUE TO MONITOR PO INTAKE AND ENCOURAGE SUPPLEMENT FOR WOUND HEALING
--- NOTE | 2022-11-01 13:58 | P.CDIC_ITS ---
CDI Concurrent Query Documentation Clarification: PHYSICIAN'S DOCUMENTATION REQUEST Date of Query: 11/01/22 [id number] Patient Name: Hari Page Admit Date: 10/18/22 Dear Doctor, A review of the medical record indicates additional documentation may be indicated. Please review below and update the documentation accordingly. Clinical Indicators: Risk Factors/Clinical Indicators/Treatments per nursing pressure injury assessment 11/01/22: wound left lateral hip, chronic stage 3 photo of wound is present in ED note of 10/18/22 without specificity noted. Based on the above, could you please provide, in the Progress Notes, further information regarding the ulcer/wound: * Type (etiology) of ulcer/wound: * Pressure (decubitus) ulcer, present on admission * Traumatic wound * Other * Unable to determine * For a non-pressure ulcer, please indicate the depth/severity: * Limited to the breakdown of skin * With fat layer exposed * With necrosis of muscle * With necrosis of bone * Other * Unable to determine * If a pressure ulcer, please also include the stage* of the ulcer: * Stage 1 - Skin intact, non-blanchable redness * Stage 2 - Partial thickness loss of dermis, includes intact or open blister * Stage 3 - Full thickness tissue not including bone, tendon, or muscle * Stage 4 - Full thickness tissue loss, including exposed bones, tendon, or muscle * Unstageable - Full thickness tissue loss in which the base of the ulcer is covered by slough (yellow, olivares, rivas, green or brown) and/or eschar (olivares, brown, or black) in the wound bed. * Suspected deep tissue injury - Purple or maroon localized area of discolored intact skin or blood-filled blister due to damage of underlying soft tissues from pressure and/or shear. The area may be preceded by tissue that is painful, firm, mushy, boggy, warmer, or cooler as compare to adjacent tissue. * Unable to determine *Source: National Pressure Ulcer Advisory Panel (NPUAP) Use of terms such as suspected, likely, concern for, or probable (associated with a specific diagnosis that is being evaluated, monitored, or treated as if it exists) are acceptable and can be coded in the inpatient setting, when documented at the time of discharge. Thank you, Eula Barillas RN Extension: [phone] Please use your independent medical judgment in providing your response. THIS QUERY IS PART OF THE PERMANENT MEDICAL RECORD Other Diagnosis: please see note
--- NOTE | 2022-11-01 13:58 | MHC.CDI.CONC ---
CDI Concurrent Query Documentation Clarification: PHYSICIAN'S DOCUMENTATION REQUEST Date of Query: 11/01/22 [id number] Patient Name: Hari Page Admit Date: 10/18/22 Dear Doctor, A review of the medical record indicates additional documentation may be indicated. Please review below and update the documentation accordingly. Clinical Indicators: Risk Factors/Clinical Indicators/Treatments per nursing pressure injury assessment 11/01/22: wound left lateral hip, chronic stage 3 photo of wound is present in ED note of 10/18/22 without specificity noted. Based on the above, could you please provide, in the Progress Notes, further information regarding the ulcer/wound: Type (etiology) of ulcer/wound: Pressure (decubitus) ulcer, present on admission Traumatic wound Other Unable to determine For a non-pressure ulcer, please indicate the depth/severity: Limited to the breakdown of skin With fat layer exposed With necrosis of muscle With necrosis of bone Other Unable to determine If a pressure ulcer, please also include the stage* of the ulcer: Stage 1 - Skin intact, non-blanchable redness Stage 2 - Partial thickness loss of dermis, includes intact or open blister Stage 3 - Full thickness tissue not including bone, tendon, or muscle Stage 4 - Full thickness tissue loss, including exposed bones, tendon, or muscle Unstageable - Full thickness tissue loss in which the base of the ulcer is covered by slough (yellow, olivares, rivas, green or brown) and/or eschar (olivares, brown, or black) in the wound bed. Suspected deep tissue injury - Purple or maroon localized area of discolored intact skin or blood-filled blister due to damage of underlying soft tissues from pressure and/or shear. The area may be preceded by tissue that is painful, firm, mushy, boggy, warmer, or cooler as compare to adjacent tissue. Unable to determine *Source: National Pressure Ulcer Advisory Panel (NPUAP) Use of terms such as suspected, likely, concern for, or probable (associated with a specific diagnosis that is being evaluated, monitored, or treated as if it exists) are acceptable and can be coded in the inpatient setting, when documented at the time of discharge. Thank you, Eula Barillas RN Extension: [phone] Please use your independent medical judgment in providing your response. THIS QUERY IS PART OF THE PERMANENT MEDICAL RECORD Other Diagnosis: please see note
[2022-11-01 15:12] LABS: Appearance Urine Clear; Color Urine Dark Yellow; Glucose Urine UA Negative (Negative); Leukocyte Esterase Urine Negative (Negative); Nitrite Urine Negative (Negative); PH 5.5 (5.0-9.0); Specific Gravity - Urine 1.025 (1.005-1.025); UMIC TRIGGER UACC YES; Urine Blood Negative (Negative); Urine Ketones Negative (Negative); Urine Protein 30 (1+) mg/dL (Neg-Trace)
[2022-11-01 15:26] LABS: Bacteria Urine None Seen (None Seen); RBC Urine 0-2 /HPF (0-2); Squamous Epithelial Cell Urine 0-2 /HPF (0-2); WBC Urine 0-5 /HPF (0-5)
[2022-11-02 03:26] VITALS: BP 103/60; PULSE 83; RESP 20; TEMP 36.8; O2SAT 91
[2022-11-02] MEDS: Zinc Oxide 20% Ointment 28.35 GM TUBE 1 APPL TOPICAL (04:02)
[2022-11-02] MEDS: Heparin Sodium,Porcine 5,000 UNIT/ML VIAL 5000 UNIT SUBCUT ×2 (05:10→18:19)
[2022-11-02 07:43] VITALS: BP 148/80; PULSE 77; RESP 16; TEMP 36.8; O2SAT 91
[2022-11-02 08:48] LABS: Adenovirus PCR Not Detected (Not Detect.); Bordetella parapertussis PCR Not Detected (Not Detect.); Bordetella pertussis PCR Not Detected (Not Detect.); Chlamydia pneumoniae PCR Not Detected (Not Detect.); Coronavirus 229E PCR Not Detected (Not Detect.); Coronavirus HKU1 PCR Not Detected (Not Detect.); Coronavirus NL63 PCR Not Detected (Not Detect.); Coronavirus OC43 PCR Not Detected (Not Detect.); Human metapneumovirus PCR Not Detected (Not Detect.); Influenza A PCR Detected (Not Detect.); Influenza B PCR Not Detected (Not Detect.); Mycoplasma pneumoniae PCR Not Detected (Not Detect.); Parainfluenza 1 PCR Not Detected (Not Detect.); Parainfluenza 2 PCR Not Detected (Not Detect.); Parainfluenza 3 PCR Not Detected (Not Detect.); Parainfluenza 4 PCR Not Detected (Not Detect.); RSV PCR Not Detected (Not Detect.); Rhino/Enterovirus PCR Not Detected (Not Detect.); SARS-CoV-2 PCR Not Detected (Not Detect.)
[2022-11-02] MEDS: Folic Acid 1 MG TABLET PO (09:50)
[2022-11-02] MEDS: Thiamine HCL 100 MG TABLET PO (09:50)
[2022-11-02] MEDS: lisinopriL 10 MG TABLET PO (09:50)
[2022-11-02] MEDS: Multivitamin TABLET 1 TAB PO (09:50)
[2022-11-02 12:00] VITALS: BP 138/63; PULSE 89; RESP 20; TEMP 36.4; O2SAT 93
--- NOTE | 2022-11-02 13:03 | MHC.CM.PN ---
Patient is medically cleared for dc and broad snf search has been updated. There are no SNF bed offers and CM will follow.
--- NOTE | 2022-11-02 14:17 | P.PNIM_ITS ---
Subjective Subjective Date of Service: 11/02/22 Interval History: seen and examined this morning Follow-up for multiple issues now with feverm, but no pain or discomfort Awaiting placement in rehab. Review of Systems Review of Systems: Yes all other systems are reviewed and are negative Constitutional Constitutional: Denies chills and Denies fever(s) Cardiovascular Cardiovascular: Denies chest pain Gastrointestinal Gastrointestinal: Denies abdominal pain, Denies nausea and Denies vomiting Physical Exam Vital Signs: Vital Signs: Last Vital Signs Temp 97.5 F 11/02/22 12:00 Pulse 89 11/02/22 12:00 Resp 20 11/02/22 12:00 BP 138/63 11/02/22 12:00 Pulse Ox 93 11/02/22 12:00 O2 Del Method 11/02/22 12:00 O2 Flow Rate 1 11/01/22 19:10 BMI result Body Mass Index 26.5 Appearing in no acute distress lung sounds are clear to auscultation heart regular rate rhythm, clear S1, S2 positive bowel sounds, abdomen is soft, nontender neuro patient is alert x3, no focal deficits Objective Data Active Medications Acetaminophen (Acetaminophen 325 Mg Tablet) 650 mg PO Q6H PRN PRN Reason: Pain, Mild (Pain Scale 1-3) Last Admin: 11/01/22 05:17 Dose: 650 mg Documented By: TOREY Folic Acid (Folic Acid 1 Mg Tablet) 1 mg PO DAILY [facility] Last Admin: 11/02/22 09:50 Dose: 1 mg Documented By: DANN Heparin Sodium (Porcine) (Heparin Sodium,Porcine 5,000 Unit/Ml Vial) 5,000 unit SUBCUT Q12H [facility] Last Admin: 11/02/22 05:10 Dose: 5,000 unit Documented By: TOREY Lisinopril (Lisinopril 10 Mg Tablet) 10 mg PO DAILY [facility]; Protocol Last Admin: 11/02/22 09:50 Dose: 10 mg Documented By: DANN Multivitamins/Vitamin C (Multivitamin Tablet) 1 tab PO DAILY [facility] Last Admin: 11/02/22 09:50 Dose: 1 tab Documented By: DANN Pharmacy Consult (Consult Rx Perform Med Rec) 1 each MISCELLANE ONCE PRN PRN Reason: Consult order Pharmacy Consult (Consult Rx Etoh Phenob Im/Po) 1 each MISCELLANE ONCE PRN; Protocol PRN Reason: Consult order Pharmacy Consult (Consult Rx Vancomycin Dosing) 1 each MISCELLANE DAILY [facility] Sodium Chloride (0.9 % Sodium Chloride Flush 3 Ml Syringe) 3 ml IVFLUSH QSHIFT [facility] Last Admin: 11/02/22 09:50 Dose: 3 ml Documented By: DANN Thiamine HCl (Thiamine Hcl 100 Mg Tablet) 100 mg PO DAILY [facility] Last Admin: 11/02/22 09:50 Dose: 100 mg Documented By: DANN Zinc Oxide (Zinc Oxide 20% Ointment 28.35 Gm Tube) 1 appl TOPICAL BID [facility]; Protocol Last Admin: 11/02/22 10:02 Dose: Not Given Documented By: DANN Non-Admin Reason: Previously Administered Labs 11/01/22 09:00 11/01/22 09:00 Labs: Laboratory Results - last 24 hr 11/01/22 11/01/22 14:57 14:57 Urine Color Dark Yellow Urine Appearance Clear Urine pH 5.5 Ur Specific [place] 1.025 Urine Protein 30 (1+) H Urine Glucose (UA) Negative Urine Ketones Negative Urine Blood Negative Urine Nitrite Negative Ur Leukocyte Esterase Negative Urine RBC 0-2 Urine WBC 0-5 Ur Squamous Epith Cells 0-2 Urine Bacteria None Seen Hyaline Casts 3-5 Respiratory Panel [place] See Note Adenovirus (Rapid PCR) Not Detected B.pert (TEM-PCR) Not Detected B.parapertussis DNA PCR Not Detected C. pneumoniae DNA (PCR) Not Detected Coronavirus OC43 (PCR) Not Detected Coronavirus HKU1 (PCR) Not Detected Coronavirus 229E (PCR) Not Detected Coronavirus NL63 (PCR) Not Detected Human Metapneumovir PCR Not Detected Influenza A (RT-PCR) Detected A Influenza B (RT-PCR) Not Detected M. pneumoniae (PCR) Not Detected Parainfluenza 1 (PCR) Not Detected Parainfluenza 2 (PCR) Not Detected Parainfluenza 3 (PCR) Not Detected Parainfluenza 4 (PCR) Not Detected RSV (PCR) Not Detected Entero/Rhino (PCR) Not Detected SARS-CoV-2 RNA (RT-PCR) Not Detected Microbiology Microbiology Results: Microbiology 11/01/22 08:58 Blood Culture - Preliminary Blood - Venous No growth after 24 hours. 11/01/22 08:58 Blood Culture - Preliminary Blood - Venous No growth after 24 hours. Assessment and Plan (1) Alcohol withdrawal: Status: Acute (2) COVID-19 virus infection: Status: Acute Plan 67-year-old man presented with failure to thrive and severe alcoholism, he drinks on a daily basis and was found his home extremely unkept severe anxiety Psych consult SIRS criteria. Resolved fever, tachypnea cxr neg for consolidation, ua negative, blood cx neg no complaints from patient tylenol for pain Stage II pressure ulcer, present on admission per surgery likely chemical burn from prolonged contact with urine/stool Keep area clean wound consult rec santyl to small area of eschar and zinc oxide to pink gran ulating tissue. stop santyl monitor daily Severe sepsis, multifactorial with cellulitis, COVID-19 and influenza. Resolved Met criteria with Hypothermia, tachycardia, lactic acidosis, now resolved Blood cultures negative to date COVID 19/influenza a No hypoxia noted, no remdesivir or steroids Chest x-ray showing lower lobe bronchiectasis with bronchial wall thickening suggestive of airway inflammation with airway infection s/p 7 day course of Unasyn and vancomycin completed course of tamiflu not requiring supplemental oxygen ID following Covid pos 10/24/21, recovered Hypernatremia resolved Hypokalemia resolved with replacement Failure to thrive Likely secondary to alcohol use Physical therapy consultation- rec STR protein to diet, encourage oral intake Alcohol use disorder completed phenobarbital seen by recovery team continue Folic acid, thiamine, multivitamin discussed importance of alcohol cessation seen by addiction medicine - seen multiple times, declines resources, or referrals etc Elevated CPK s/p priot to admission patient found on the ground, unable to determine how long he had been there Secondary to dehydration, fall CPK trending down Transaminitis. Trending down Secondary to alcohol abuse Elevated troponin. No delta No complaints of chest pain No ischemic changes on EKG Likely secondary to elevated CPK right renal lesion seen on CT - recommend outpatient CT with renal mass protocol vs MR with contrast for further characterization Hypertension continue lisinopril DVT prophylaxis with heparin Full code Attending Dr. Carlos ARMSTRONG to chair Dispo: PT rec STR once covid recovered 10/29/21. did not work with PT today, educated importance of working with physical therapy continued hospitalization for treatment of influenza a and COVID-19 along with severe buttocks cellulitis and failure to thrive, safe disposition ? Time Spent With Patient Time: Total time managing care of this patient today ____ minutes. Quality Stroke Does the patient have a stroke diagnosis?: No VTE Prior VTE?: No VTE Risk Level:: Medical - moderate - high VTE Device Contraindication: N/A - Device Ordered VTE Drug Contraindication: N/A - Med Ordered
[2022-11-02 15:18] VITALS: BP 109/63; PULSE 90; RESP 20; TEMP 36.9; O2SAT 90
[2022-11-02 19:10] VITALS: BP 128/64; PULSE 88; RESP 20; TEMP 36.8; O2SAT 91
--- NOTE | 2022-11-02 23:32 | PC.NURSE ---
Pts O2 dropped to 88% overnight so I put him on 2L NC. He O2 went up to 95%.
[2022-11-02 23:39] VITALS: BP 118/61; PULSE 94; RESP 20; TEMP 36.7; O2SAT 95
--- NOTE | 2022-11-03 02:45 | PM.EVENT ---
Event Note Date of Service: 11/03/22 Event Note: pt retaining urine. will straight cath and send ua Time Spent With Patient Time: Total time managing care of this patient today ____ minutes.
[2022-11-03 03:42] LABS: Appearance Urine Clear; Color Urine Dark Yellow; Glucose Urine UA Negative (Negative); Leukocyte Esterase Urine Trace (Negative); Nitrite Urine Negative (Negative); PH 5.5 (5.0-9.0); Specific Gravity - Urine 1.025 (1.005-1.025); UMIC TRIGGER UACC YES; Urine Blood Negative (Negative); Urine Ketones Negative (Negative); Urine Protein 30 (1+) mg/dL (Neg-Trace)
[2022-11-03 03:45] LABS: Bacteria Urine None Seen (None Seen); Hyaline Casts Urine 0-2 /LPF (0-2); RBC Urine 0-2 /HPF (0-2); Squamous Epithelial Cell Urine 0-2 /HPF (0-2); WBC Urine 0-5 /HPF (0-5)
[2022-11-03 03:59] VITALS: BP 114/67; PULSE 92; RESP 20; TEMP 36.8; O2SAT 95
[2022-11-03] MEDS: Heparin Sodium,Porcine 5,000 UNIT/ML VIAL 5000 UNIT SUBCUT ×2 (05:17→17:38)
[2022-11-03 07:31] VITALS: BP 140/84; PULSE 92; RESP 14; TEMP 37.7; O2SAT 97
[2022-11-03 09:05] LABS: MRSA Nasal PCR NEGATIVE (Negative); SA Nasal PCR NEGATIVE (Negative)
[2022-11-03] MEDS: lisinopriL 10 MG TABLET PO (09:29)
[2022-11-03] MEDS: Thiamine HCL 100 MG TABLET PO (09:29)
[2022-11-03] MEDS: Folic Acid 1 MG TABLET PO (09:29)
[2022-11-03] MEDS: Multivitamin TABLET 1 TAB PO (09:29)
--- NOTE | 2022-11-03 10:48 | MHC.CLN ---
F/U PO INTAKE IMPROVED 75-100% DIET RX: REGULAR DIET -APPROPRIATE PT RECEIVING ENSURE TID PROVIDES 1050KCALS, 60G PROTEIN WITH 100% ACCEPTANCE CONTINUE TO MONITOR PO INTAKE AND ENCOURAGE SUPPLEMENT FOR WOUND HEALING
[2022-11-03 11:28] VITALS: BP 144/87; PULSE 84; RESP 14; TEMP 36.9; O2SAT 94
--- NOTE | 2022-11-03 11:44 | HO.PM.IMPN ---
Subjective Subjective Date of Service: 11/03/22 Interval History: seen and examined this morning Follow-up for multiple issues now with feverm, but no pain or discomfort Awaiting placement in rehab. Review of Systems Review of Systems: Yes all other systems are reviewed and are negative Constitutional Constitutional: Denies chills and Denies fever(s) Cardiovascular Cardiovascular: Denies chest pain Gastrointestinal Gastrointestinal: Denies abdominal pain, Denies nausea and Denies vomiting Physical Exam Vital Signs: Vital Signs: Last Vital Signs Temp 98.5 F 11/03/22 11:28 Pulse 84 11/03/22 11:28 Resp 14 11/03/22 11:28 BP 144/87 H 11/03/22 11:28 Pulse Ox 94 11/03/22 11:28 O2 Del Method 11/03/22 11:28 O2 Flow Rate 2 11/03/22 11:28 BMI result Body Mass Index 26.5 Appearing in no acute distress lung sounds are clear to auscultation heart regular rate rhythm, clear S1, S2 positive bowel sounds, abdomen is soft, nontender neuro patient is alert x3, no focal deficits Objective Data Active Medications Acetaminophen (Acetaminophen 325 Mg Tablet) 650 mg PO Q6H PRN PRN Reason: Pain, Mild (Pain Scale 1-3) Last Admin: 11/01/22 05:17 Dose: 650 mg Documented By: TOREY Folic Acid (Folic Acid 1 Mg Tablet) 1 mg PO DAILY [facility] Last Admin: 11/03/22 09:29 Dose: 1 mg Documented By: HILARIA Heparin Sodium (Porcine) (Heparin Sodium,Porcine 5,000 Unit/Ml Vial) 5,000 unit SUBCUT Q12H [facility] Last Admin: 11/03/22 05:17 Dose: 5,000 unit Documented By: DEYANIRA Lisinopril (Lisinopril 10 Mg Tablet) 10 mg PO DAILY [facility]; Protocol Last Admin: 11/03/22 09:29 Dose: 10 mg Documented By: HILARIA Multivitamins/Vitamin C (Multivitamin Tablet) 1 tab PO DAILY [facility] Last Admin: 11/03/22 09:29 Dose: 1 tab Documented By: HILARIA Pharmacy Consult (Consult Rx Perform Med Rec) 1 each MISCELLANE ONCE PRN PRN Reason: Consult order Pharmacy Consult (Consult Rx Etoh Phenob Im/Po) 1 each MISCELLANE ONCE PRN; Protocol PRN Reason: Consult order Pharmacy Consult (Consult Rx Vancomycin Dosing) 1 each MISCELLANE DAILY [facility] Sodium Chloride (0.9 % Sodium Chloride Flush 3 Ml Syringe) 3 ml IVFLUSH QSHIFT [facility] Last Admin: 11/03/22 09:29 Dose: 3 ml Documented By: HILARIA Thiamine HCl (Thiamine Hcl 100 Mg Tablet) 100 mg PO DAILY [facility] Last Admin: 11/03/22 09:29 Dose: 100 mg Documented By: HILARIA Zinc Oxide (Zinc Oxide 20% Ointment 28.35 Gm Tube) 1 appl TOPICAL BID [facility]; Protocol Last Admin: 11/02/22 21:55 Dose: Not Given Documented By: DEYANIRA Non-Admin Reason: Previously Administered Labs 11/01/22 09:00 11/01/22 09:00 Labs: Laboratory Results - last 24 hr 11/02/22 11/03/22 18:30 03:00 Urine Color Dark Yellow Urine Appearance Clear Urine pH 5.5 Ur Specific [place] 1.025 Urine Protein 30 (1+) H Urine Glucose (UA) Negative Urine Ketones Negative Urine Blood Negative Urine Nitrite Negative Ur Leukocyte Esterase Trace H Urine RBC 0-2 Urine WBC 0-5 Ur Squamous Epith Cells 0-2 Urine Bacteria None Seen Hyaline Casts 0-2 Nasal Screen MRSA (PCR) NEGATIVE Nasal S. aureus Screen NEGATIVE Nasal MRSA/S.aureus Interp SEE NOTE Microbiology Microbiology Results: Microbiology 11/01/22 08:58 Blood Culture - Preliminary Blood - Venous No growth after 48 hours. 11/01/22 08:58 Blood Culture - Preliminary Blood - Venous No growth after 48 hours. Assessment and Plan (1) Alcohol withdrawal: Status: Acute (2) COVID-19 virus infection: Status: Acute Plan 67-year-old man presented with failure to thrive and severe alcoholism, he drinks on a daily basis and was found his home extremely unkept severe anxiety Psych consult pending SIRS criteria. Resolved fever, tachypnea cxr neg for consolidation, ua negative, blood cx neg no complaints from patient tylenol for pain Stage II pressure ulcer, present on admission per surgery likely chemical burn from prolonged contact with urine/stool Keep area clean wound consult rec santyl to small area of eschar and zinc oxide to pink granulating tissue. stop santyl monitor daily Severe sepsis, multifactorial with cellulitis, COVID-19 and influenza. Resolved Met criteria with Hypothermia, tachycardia, lactic acidosis, now resolved Blood cultures negative to date COVID 19/influenza a No hypoxia noted, no remdesivir or steroids Chest x-ray showing lower lobe bronchiectasis with bronchial wall thickening suggestive of airway inflammation with airway infection s/p 7 day course of Unasyn and vancomycin completed course of tamiflu not requiring supplemental oxygen ID following Covid pos 10/24/21, recovered Hypernatremia resolved Hypokalemia resolved with replacement Failure to thrive Likely secondary to alcohol use Physical therapy consultation- rec STR protein to diet, encourage oral intake Alcohol use disorder completed phenobarbital seen by recovery team continue Folic acid, thiamine, multivitamin discussed importance of alcohol cessation seen by addiction medicine - seen multiple times, declines resources, or referrals etc Elevated CPK s/p priot to admission patient found on the ground, unable to determine how long he had been there Secondary to dehydration, fall CPK trending down Transaminitis. Trending down Secondary to alcohol abuse Elevated troponin. No delta No complaints of chest pain No ischemic changes on EKG Likely secondary to elevated CPK right renal lesion seen on CT - recommend outpatient CT with renal mass protocol vs MR with contrast for further characterization Hypertension continue lisinopril DVT prophylaxis with heparin Full code Attending Dr. Carlos ARMSTRONG to chair Dispo: PT rec STR once covid recovered 10/29/21. did not work with PT today, educated importance of working with physical therapy continued hospitalization for treatment of influenza a and COVID-19 along with severe buttocks cellulitis and failure to thrive, safe disposition ? Time Spent With Patient Time: Total time managing care of this patient today ____ minutes. Quality Stroke Does the patient have a stroke diagnosis?: No VTE Prior VTE?: No VTE Risk Level:: Medical - moderate - high VTE Device Contraindication: N/A - Device Ordered VTE Drug Contraindication: N/A - Med Ordered
[2022-11-03] MEDS: Zinc Oxide 20% Ointment 28.35 GM TUBE 1 APPL TOPICAL (12:57)
[2022-11-03 13:22] VITALS: TEMP 39
[2022-11-03] MEDS: Acetaminophen 325 MG TABLET 650 MG PO (13:22)
--- NOTE | 2022-11-03 13:39 | MHC.CM.PN ---
DP STR via BLS. The bed search was expanded again today. No bed offers from yesterdays new referrals. Today [facility] received and reviewed the patients clinical info. They can not offer a bed today. They will follow for an open bed. CM will follow.
[2022-11-03 15:51] VITALS: BP 121/60; PULSE 89; RESP 17; TEMP 38.1; O2SAT 95
--- NOTE | 2022-11-03 16:38 | P.CNPS_ITS ---
History of Present Illness Date of Service: 11/03/22 Chief Complaint: Covid-19, influenza, failure to thrive Reason for Consult: anxiety Requesting physician: Brittany Cesar Discussed with referring provider: Yes HPI Narrative: CTSP by medicine service after severe medical illnesses requiring hospitalization since 10/18, including sepsis, bedsores, and alcohol detox. pt has been seen multiple times by addiction service and has declined services from them each time. the present consult was to psychiatry with question of anxiety, which pt denied as well as any other psychiatric symptom which was inquired about. what was most striking about the MSE was his extremely poor cognitive performance, indicating likely dementia (if delirium is ruled out). he was unable to produce much in the way of data regarding time orientation, and confabulated answers and displayed some perseveration (on being asked what the year was, he responded, zero... 22... 22... 33... i don't know ). he indicated the month is november and that the day of the week is second. he correctly spelled WORLD but on being asked to spell it backward replied, i don't know how to do that. he was able to recall one of three words given him to remember about one minute after being told the words. he denied any mental health history or any need for mental health care at present. he also denied any h/o problematic substance use, including of alcohol. he was felt to be an extremely unreliable historian. Past Psychiatric History: denies h/o psych hosps. denies h/o SA. denies h/o SIB. denies h/o mental health care. Medical Evaluation Reviewed: Yes [facility] Medical History Hypertension Narrative: h/o severe sepsis, multifactorial with cellulitis, COVID-19 and influenza Severe buttocks excoriation/cellulitis Failure to thrive Alcohol abuse Transaminitis h/o Elevated troponin Hypertension Surgical History History of lumbar laminectomy Family History: denies Social History: HS grad. 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 Substance History: alcohol: pt reports h/o use, denies h/o abuse, detox, rehab, or other EtOH use disorder Tx. tobacco: reports smoking 1.5 ppd denies the use of any other substances of abuse such as cocaine, opioids, pills, cannabis. Diagnostics Vital Signs (24Hr): Vital Signs - 24 hr 11/02/22 19:10 11/02/22 23:39 11/03/22 03:59 Temperature 98.3 F 98.1 F 98.3 F Pulse Rate 88 94 92 Respiratory Rate 20 20 20 Blood Pressure 128/64 118/61 114/67 Pulse Oximetry 91 L 95 95 Oxygen Delivery Method Room Air Nasal Cannula Nasal Cannula Oxygen Flow Rate 2 2 11/03/22 07:31 11/03/22 11:28 11/03/22 13:22 Temperature 99.8 F 98.5 F 102.2 F H Pulse Rate 92 84 Respiratory Rate 14 14 Blood Pressure 140/84 H 144/87 H Pulse Oximetry 97 94 Oxygen Delivery Method Nasal Cannula Nasal Cannula Oxygen Flow Rate 2 2 11/03/22 15:51 Temperature 100.6 F H Pulse Rate 89 Respiratory Rate 17 Blood Pressure 121/60 Pulse Oximetry 95 Oxygen Delivery Method Nasal Cannula Oxygen Flow Rate 2 BMI result Body Mass Index 26.5 Labs 11/01/22 09:00 11/01/22 09:00 Labs: Laboratory Results - last 48 hr 11/01/22 11/02/22 11/03/22 14:57 18:30 03:00 Urine Color Dark Yellow Urine Appearance Clear Urine pH 5.5 Ur Specific [place] 1.025 Urine Protein 30 (1+) H Urine Glucose (UA) Negative Urine Ketones Negative Urine Blood Negative Urine Nitrite Negative Ur Leukocyte Esterase Trace H Urine RBC 0-2 Urine WBC 0-5 Ur Squamous Epith Cells 0-2 Urine Bacteria None Seen Hyaline Casts 0-2 Nasal Screen MRSA (PCR) NEGATIVE Nasal S. aureus Screen NEGATIVE Nasal MRSA/S.aureus Interp SEE NOTE Respiratory Panel [place] See Note Adenovirus (Rapid PCR) Not Detected B.pert (TEM-PCR) Not Detected B.parapertussis DNA PCR Not Detected C. pneumoniae DNA (PCR) Not Detected Coronavirus OC43 (PCR) Not Detected Coronavirus HKU1 (PCR) Not Detected Coronavirus 229E (PCR) Not Detected Coronavirus NL63 (PCR) Not Detected Human Metapneumovir PCR Not Detected Influenza A (RT-PCR) Detected A Influenza B (RT-PCR) Not Detected M. pneumoniae (PCR) Not Detected Parainfluenza 1 (PCR) Not Detected Parainfluenza 2 (PCR) Not Detected Parainfluenza 3 (PCR) Not Detected Parainfluenza 4 (PCR) Not Detected RSV (PCR) Not Detected Entero/Rhino (PCR) Not Detected SARS-CoV-2 RNA (RT-PCR) Not Detected Imaging Radiology Impressions: ITS Impressions Chest X-Ray 10/18/22 14:35 IMPRESSION: Prominent bronchovascular markings at left perihilar and left lower lung field, may represent subtle interstitial pneumonia/viral pneumonia versus reactive airway disease. Follow-up radiograph to resolution is recommended. Abdomen/Pelvis CT 10/18/22 14:40 IMPRESSION: Asymmetric subcutaneous fat stranding in the left gluteal soft tissues with overlying skin thickening suggestive of cellulitis. Please note that the scrotum and gluteal soft tissues are incompletely imaged. No subcutaneous emphysema within the field of view to suggest necrotizing fasciitis. Lower lobe bronchiectasis with bronchial wall thickening suggesting airways inflammation. Patchy centrilobular nodules in the left lung base suggesting airways infection. Age-indeterminate inferior wedge compression deformity of the L1 vertebral body with approximately 50% height loss. Hepatic steatosis. A 1 cm indeterminate, intermediate attenuation right renal lesion for which differential considerations could include a hyperdense renal cyst or a small renal mass. CT renal mass protocol or MR with contrast is recommended for further evaluation. 4 mm solid left lower lobe pulmonary nodule. Assuming patient has no history of malignancy, recommend follow-up per Fleischner Society recommendations. According to the UPDATED 2017 Fleischner Society recommendations, the advised followup imaging for solid nodules < 6 mm is: LOW RISK PATIENT: No routine follow up. HIGH RISK PATIENT: Optional CT at 12 months. Chest X-Ray 10/31/22 21:46 IMPRESSION: Mild medial right basilar opacity could represent atelectasis or pneumonia. Aspiration possible. Chest X-Ray 11/01/22 09:30 IMPRESSION: * Bronchial valerio are thickened. Query if there is any history of asthma or bronchitis. Infectious inflammation of the airways is possible in this patient with history of fever. * Curvilinear opacity in the medial right lower lung likely represents atelectasis. No overt pneumonia. Mental Status Exam Mental Status Exam Narrative: calm, cooperative. recumbent in hospital bed, wearing hospital emilia. awake and alert. no PMA/PMR. speech nml rate, amount, loudness, tone, latency. thoughts linear and logical in response to questions. confabulation when asked for data. affect flexible, normo-intense, min-labile. mood not too bad. denies SI/SIBI/HI/AVH. Medications Medications Current Medications Acetaminophen (Acetaminophen 325 Mg Tablet) 650 mg PO Q6H PRN PRN Reason: Pain, Mild (Pain Scale 1-3) Last Admin: 11/03/22 13:22 Dose: 650 mg Folic Acid (Folic Acid 1 Mg Tablet) 1 mg PO DAILY [facility] Last Admin: 11/03/22 09:29 Dose: 1 mg Heparin Sodium (Porcine) (Heparin Sodium,Porcine 5,000 Unit/Ml Vial) 5,000 unit SUBCUT Q12H [facility] Last Admin: 11/03/22 05:17 Dose: 5,000 unit Lisinopril (Lisinopril 10 Mg Tablet) 10 mg PO DAILY [facility]; Protocol Last Admin: 11/03/22 09:29 Dose: 10 mg Multivitamins/Vitamin C (Multivitamin Tablet) 1 tab PO DAILY [facility] Last Admin: 11/03/22 09:29 Dose: 1 tab Pharmacy Consult (Consult Rx Perform Med Rec) 1 each MISCELLANE ONCE PRN PRN Reason: Consult order Pharmacy Consult (Consult Rx Etoh Phenob Im/Po) 1 each MISCELLANE ONCE PRN; Protocol PRN Reason: Consult order Pharmacy Consult (Consult Rx Vancomycin Dosing) 1 each MISCELLANE DAILY [facility] Sodium Chloride (0.9 % Sodium Chloride Flush 3 Ml Syringe) 3 ml IVFLUSH QSHIFT [facility] Last Admin: 11/03/22 15:43 Dose: 3 ml Thiamine HCl (Thiamine Hcl 100 Mg Tablet) 100 mg PO DAILY [facility] Last Admin: 11/03/22 09:29 Dose: 100 mg Zinc Oxide (Zinc Oxide 20% Ointment 28.35 Gm Tube) 1 appl TOPICAL BID [facility]; Protocol Last Admin: 11/03/22 12:57 Dose: 1 appl Allergies Allergies Allergy/AdvReac Type Severity Reaction Status Date / Time No Known Allergies Allergy Verified 05/20/22 10:27 Assessment & Plan Assessment & Plan (1) Cognitive disorder: Status: Acute Code(s): F09 - Unspecified mental disorder due to known physiological condition Assessment and Plan: pt clearly cognitively impaired from lack of orientation, confabulation, and poor memory and attention performance. etiology unclear, may be multifactorial, such as chronic alcohol use, familial, vascular. would rule out delirium and address and underlying medical causes which might be exacerbating his poor cognitive performance. recommend OT or other qualified staff perform MoCA for baseline score. (2) Alcohol use disorder: Status: Acute Code(s): F19.90 - Other psychoactive substance use, unspecified, uncomplicated Assessment and Plan: by history and context, denied by patient. pt may need guardianship and senior care care moving forward. Plan pt denied any psychiatric Sx or problematic substance use Hx. he is demented, most likely, and unlikely to be able to care for himself outside of a structured and supported setting. he may require guardianship and senior care services. get baseline MoCA. continue vitamins. Total time managing care of this patient today __50__ minutes.
[2022-11-03 19:39] VITALS: BP 129/68; PULSE 88; RESP 13; TEMP 36.6; O2SAT 95
[2022-11-03] MEDS: Piperacillin Sodium/Tazobactam 3.375 GM in 0.9 % Sodium Chloride 50 ML IV (19:49)
[2022-11-03] MEDS: Silver Sulfadiazine 1 % Cream 20 GM TUBE 1 APPL TOPICAL (19:52)
[2022-11-03] MEDS: Tamsulosin HCL 0.4 MG CAPSULE PO (19:52)
[2022-11-04] VITALS (12 sets, daily range): BP systolic 74–122; BP diastolic 38–68; PULSE 75–119; RESP 16–26; TEMP 36.4–39.4; O2SAT 92–99
[2022-11-04] MEDS: Piperacillin Sodium/Tazobactam 3.375 GM in 0.9 % Sodium Chloride 50 ML IV ×4 (00:12→16:55)
[2022-11-04] MEDS: Acetaminophen 325 MG TABLET 650 MG PO ×2 (03:59→11:14)
[2022-11-04] MEDS: Heparin Sodium,Porcine 5,000 UNIT/ML VIAL 5000 UNIT SUBCUT ×2 (05:14→16:58)
[2022-11-04 05:34] LABS: Anion Gap 11 (12-20); Blood Urea Nitrogen 10 mg/dL (9-16); Calcium 7.6 mg/dL (8.4-10.2); Carbon Dioxide 28 mmol/L (22-29); Chloride 101 mmol/L (96-108); Estimated Glomerular Filt Rate > 60; Glucose Random 88 mg/dL (60-115); Potassium 4.8 mmol/L (3.3-5.1); Sodium 135 mmol/L (135-145)
[2022-11-04 06:12] LABS: Folate 14.8 ng/mL (> or = 4.0); Vitamin B12 543 pg/mL (200-900)
[2022-11-04] MEDS: Multivitamin TABLET 1 TAB PO (07:37)
[2022-11-04] MEDS: Thiamine HCL 100 MG TABLET PO (07:37)
--- NOTE | 2022-11-04 09:01 | PM.PNGS ---
Subjective Subjective Date of Service: 05/02/24 Interval history: pt down at CT scan for head CT pt awake but not cooperating pics reviewed Physical Exam Vital Signs: Vital Signs: Last Vital Signs Temp 102.8 F H 11/04/22 08:00 Pulse 110 H 11/04/22 08:00 Resp 22 H 11/04/22 08:00 BP 99/55 L 11/04/22 08:00 Pulse Ox 94 11/04/22 08:00 O2 Del Method 11/04/22 08:00 O2 Flow Rate 3 11/04/22 08:00 BMI result Body Mass Index 26.5 Objective Data Active Medications Acetaminophen (Acetaminophen 325 Mg Tablet) 650 mg PO Q6H PRN PRN Reason: Pain, Mild (Pain Scale 1-3) Last Admin: 11/04/22 03:59 Dose: 650 mg Documented By: FLORENCIO Collagenase (Collagenase Clostridium Hist. 30 Gm Tube) 1 appl TOPICAL DAILY [facility]; Protocol Collagenase (Collagenase Clostridium Hist. 30 Gm Tube) 1 appl TOPICAL DAILY [facility]; Protocol Folic Acid (Folic Acid 1 Mg Tablet) 1 mg PO DAILY [facility] Last Admin: 11/03/22 09:29 Dose: 1 mg Documented By: HILARIA Heparin Sodium (Porcine) (Heparin Sodium,Porcine 5,000 Unit/Ml Vial) 5,000 unit SUBCUT Q12H [facility] Last Admin: 11/04/22 05:14 Dose: 5,000 unit Documented By: FLORENCIO Piperacillin Sod/Tazobactam (Sod 3.375 gm/ Sodium Chloride) 50 mls @ 100 mls/hr IV Q6H [facility] Last Infusion: 11/04/22 05:45 Dose: 0 mls/hr Documented By: FLORENCIO Lactated Ringer's (Lr) 1,000 mls @ 100 mls/hr IVCONT .Q10H [facility] Levalbuterol HCl (Levalbuterol Hcl 1.25 Mg/0.5 Ml Vial.Neb) 1.25 mg INHALE RQ4H WHILE AWAKE [facility] Lisinopril (Lisinopril 10 Mg Tablet) 10 mg PO DAILY [facility]; Protocol Last Admin: 11/03/22 09:29 Dose: 10 mg Documented By: HILARIA Multivitamins/Vitamin C (Multivitamin Tablet) 1 tab PO DAILY [facility] Last Admin: 11/04/22 07:37 Dose: 1 tab Documented By: HILARIA Pharmacy Consult (Consult Rx Perform Med Rec) 1 each MISCELLANE ONCE PRN PRN Reason: Consult order Pharmacy Consult (Consult Rx Etoh Phenob Im/Po) 1 each MISCELLANE ONCE PRN; Protocol PRN Reason: Consult order Pharmacy Consult (Consult Rx Vancomycin Dosing) 1 each MISCELLANE DAILY [facility] Silver Sulfadiazine (Silver Sulfadiazine 1 % Cream 20 Gm Tube) 1 appl TOPICAL DAILY [facility] Silver Sulfadiazine (Silver Sulfadiazine 1 % Cream 20 Gm Tube) 1 appl TOPICAL DAILY [facility] Last Admin: 11/03/22 19:52 Dose: 1 appl Documented By: FLORENCIO Sodium Chloride (0.9 % Sodium Chloride Flush 3 Ml Syringe) 3 ml IVFLUSH QSHIFT [facility] Last Admin: 11/04/22 07:37 Dose: 3 ml Documented By: HILARIA Tamsulosin HCl (Tamsulosin Hcl 0.4 Mg Capsule) 0.4 mg PO BEDTIME [facility] Last Admin: 11/03/22 19:52 Dose: 0.4 mg Documented By: FLORENCIO Thiamine HCl (Thiamine Hcl 100 Mg Tablet) 100 mg PO DAILY [facility] Last Admin: 11/04/22 07:37 Dose: 100 mg Documented By: HILARIA Zinc Oxide (Zinc Oxide 20% Ointment 28.35 Gm Tube) 1 appl TOPICAL BID [facility]; Protocol Last Admin: 11/03/22 19:57 Dose: Not Given Documented By: FLORENCIO Non-Admin Reason: treatment changed Labs 12/03/22 08:54 12/09/22 08:29 Labs: Laboratory Results - last 24 hr 11/02/22 11/04/22 11/04/22 18:30 04:43 04:43 Anion Gap 11 L Estim Creat Clear Calc 128.0 Estimated GFR > 60 Random Glucose 88 Lactic Acid Calcium 7.6 L Vitamin B12 543 Folate 14.8 Nasal Screen MRSA (PCR) NEGATIVE Nasal S. aureus Screen NEGATIVE Nasal MRSA/S.aureus Interp SEE NOTE 11/04/22 04:43 Anion Gap Estim Creat Clear Calc Estimated GFR Random Glucose Lactic Acid 1.0 Calcium Vitamin B12 Folate Nasal Screen MRSA (PCR) Nasal S. aureus Screen Nasal MRSA/S.aureus Interp Microbiology Microbiology Results: Microbiology 11/03/22 21:25 Gram Stain - Final Buttock 11/03/22 18:26 Gram Stain - Final Buttock 11/01/22 08:58 Blood Culture - Preliminary Blood - Venous No growth after 48 hours. 11/01/22 08:58 Blood Culture - Preliminary Blood - Venous No growth after 48 hours. Procedures Date of Service Date of Service: 11/04/22 Progress Note: A&P Assessment and plan (1) Intertriginous dermatitis associated with moisture: Status: Acute Assessment and Plan: Patient's wound on buttocks is more consistent with moisture associated skin breakdown and is generally progressing and improving. Plan is to continue with dealing with incontinence and wet urine and stool which is being improved with consideration of Aquino catheter placement. In the meantime continue with just Silvadene as the breakdown is into the dermal tissue but not really quite into the fatty tissue of the subcutaneous. Continue to offload and shift but in addition try to increase his protein intake. This is been a little difficult due to his not cooperating as much with eating well. At this point no need for any further surgical debridement continue with medical management of his underlying issues. Time Spent With Patient Time: Total time managing care of this patient today ____ minutes. Quality Stroke Does the patient have a stroke diagnosis?: No VTE Prior VTE?: No VTE Risk Level:: Medical - moderate - high VTE Device Contraindication: N/A - Device Ordered VTE Drug Contraindication: N/A - Med Ordered
[2022-11-04 09:25] LABS: Hemoglobin 9.8 g/dl (14.0-18.0); Mean Corpuscular HGB Conc 32.7 g/dl (31.0-36.0); Mean Corpuscular Hemoglobin 32.2 pg (27.0-33.0); Mean Corpuscular Volume 98.7 fL (80.0-98.0); Mean Platelet Volume 9.9 fL (9.4-12.4); Platelet Count 805 X10*3/uL (160-400); Red Blood Count 3.04 X10*6/uL (4.60-5.80); Red Cell Distribution Width 14.6 % (11.0-16.0); White Blood Count 11.9 X10*3/uL (4.8-10.8)
[2022-11-04] MEDS: Lactated Ringers 1,000 ML 100 ML IVCONT (11:28)
--- NOTE | 2022-11-04 11:38 | PC.NURSE ---
OT at bedside at this time.
[2022-11-04] MEDS: Folic Acid 1 MG TABLET PO (11:46)
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
[2022-11-04] MEDS: Zinc Oxide 20% Ointment 28.35 GM TUBE 1 APPL TOPICAL (15:10)
[2022-11-04] MEDS: Collagenase Clostridium Hist. 30 GM TUBE 1 APPL TOPICAL (15:10)
[2022-11-04] MEDS: Silver Sulfadiazine 1 % Cream 20 GM TUBE 1 APPL TOPICAL (15:11)
[2022-11-04] MEDS: Ibuprofen 400 MG TABLET PO (15:16)
[2022-11-04] MEDS: 0.9 % Sodium Chloride 500 ML IV ×2 (15:31→16:17)
--- NOTE | 2022-11-04 16:47 | MHC.CM.PN ---
DP STR/LTC. Patient is covid recovered. No DC today r/t Temp. Met with Sister HCP Rosalie. Update provided.
[2022-11-04 17:07] LABS: Lactic Acid 2.2 mmol/L (0.5-2.0)
--- NOTE | 2022-11-04 17:13 | HE.PHANOTE ---
RE VANCO PER JASON, PATIENT NOW SEPTIC. WILL RELOAD PATIENT WITH 2 GRAMS VANCO, THEN 1 GRAM Q12H STARTING TOMORROW @0700. NEXT TROUGH DUE 11/06 @0500. SUSPECTED AUC 527, TROUGH 17.3
[2022-11-04] MEDS: Albumin Human 25 % 100 ML IV ×2 (17:18→17:58)
[2022-11-04 18:33] LABS: Reflex Lactate? Lactic Acid Added
[2022-11-04 19:39] LABS: ~Lactic Acid-LAB USE ONLY 1.8 mmol/L (0.5-2.0)
[2022-11-04] MEDS: Tamsulosin HCL 0.4 MG CAPSULE PO (20:19)
[2022-11-05] VITALS (9 sets, daily range): BP systolic 98–133; BP diastolic 47–78; PULSE 63–96; RESP 17–20; TEMP 36.2–38.3; O2SAT 93–98
[2022-11-05] MEDS: Piperacillin Sodium/Tazobactam 3.375 GM in 0.9 % Sodium Chloride 50 ML IV ×4 (00:45→17:51)
[2022-11-05] MEDS: Zinc Oxide 20% Ointment 28.35 GM TUBE 1 APPL TOPICAL ×3 (00:51→21:40)
[2022-11-05 01:38] LABS: ABG Base Excess 7.9 mmol/L; ABG HCO3 32 mmol/L (22-26); ABG pCO2 44 mmHg (32-45); ABG pH 7.46 (7.35-7.45); ABG pO2 95 mmHg (83-108)
--- NOTE | 2022-11-05 04:28 | PC.NURSE ---
Per shift report, patient needed to be straight cathed due to urinary retention. Bladder scanned at 0130, noted to be retaining 430ml. Patient unable to urinate on his own. Hospitalist notified, indwelling catheter ordered. 16g draper inserted, patient tolerated well. Drained 400ml into draper bag.
[2022-11-05] MEDS: Lactated Ringers 1,000 ML 125 ML IVCONT ×3 (05:19→21:38)
[2022-11-05] MEDS: Heparin Sodium,Porcine 5,000 UNIT/ML VIAL 5000 UNIT SUBCUT ×2 (05:24→17:51)
[2022-11-05] MEDS: vancomycin HCL 1,000 MG in 0.9 % Sodium Chloride 250 ML 270 MG IV ×2 (06:13→18:31)
[2022-11-05 06:58] LABS: Hematocrit 27.8 % (42.0-52.0); Mean Corpuscular HGB Conc 32.4 g/dl (31.0-36.0); Mean Corpuscular Hemoglobin 32.4 pg (27.0-33.0); Mean Platelet Volume 10.3 fL (9.4-12.4); Platelet Count 450 X10*3/uL (160-400); Red Blood Count 2.78 X10*6/uL (4.60-5.80); Red Cell Distribution Width 14.6 % (11.0-16.0); White Blood Count 7.2 X10*3/uL (4.8-10.8)
[2022-11-05 07:02] LABS: Anion Gap 10 (12-20); Blood Urea Nitrogen 11 mg/dL (9-16); Calcium 7.4 mg/dL (8.4-10.2); Carbon Dioxide 27 mmol/L (22-29); Chloride 104 mmol/L (96-108); Creatinine Clr Calc Pharmacy 132.1; Estimated Glomerular Filt Rate > 60; Glucose Random 99 mg/dL (60-115); Potassium 4.4 mmol/L (3.3-5.1); Sodium 137 mmol/L (135-145)
--- NOTE | 2022-11-05 07:08 | HE.PHANOTE ---
Vancomycin Dosing Addendum Patient has only received load and 1 maintenance dose. Renal function stable at this time. Continue with 1000 mg Q12H. Next draw will be 11/06 @0500.
[2022-11-05] MEDS: Thiamine HCL 100 MG TABLET PO (09:21)
[2022-11-05] MEDS: Folic Acid 1 MG TABLET PO (09:21)
[2022-11-05] MEDS: Multivitamin TABLET 1 TAB PO (09:21)
[2022-11-05] MEDS: Collagenase Clostridium Hist. 30 GM TUBE 1 APPL TOPICAL (09:22)
[2022-11-05] MEDS: Silver Sulfadiazine 1 % Cream 20 GM TUBE 1 APPL TOPICAL (09:22)
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
--- NOTE | 2022-11-05 11:02 | MHC.CM.PN ---
Per ROUNDS discussion, Patient's BP is borderline and he is still on IV ABT and not yet medically cleared for dc. PT is recommending STR and CM will continue to follow.
[2022-11-05] MEDS: Albumin Human 25 % 100 ML IV ×2 (11:05→12:38)
--- NOTE | 2022-11-05 13:12 | MHC.SL.SWA ---
Speech Pathologist Impression: Oral phase dysphagia Risk of Aspiration Due to: History of Pneumonia Dysphasia Diet Status: Downgrade solids to NDD2 Liquid Consistency and Strategies for Safe Swallow: Liquid Intake Recommendation: Thin Liquid Intake Strategies: Small Sips Solid Food Consistency: Dietary Recommendations: Grnd/Mech Altered (NDD2) Additional Modifications to Solid Foods: Pt w/ mild oral phase dysphagia secondary to edentulous state. Recommend downgrade solids to GROUND/MECH ALTERED (NDD2) for ease of mastication, continue on THIN liquids. Pt could potentially tolerate more advanced solids should he have his dentures. Pt does not have his dentures here with him at the hospital at this time. Pills to be WHOLE in LIQUID or PUREE per pt's tolerance. Total supervision and aspiration precautions apply. Pt is able to self feed, but may need assistance with tray set up- opening containers and ensuring items are within reach. Recommendations were written on whiteboard in pt's room. Diet order updated by REPAIR MECHANIC. Sent update w/ recommendations to MD, RN, RD via [employer] Message. REPAIR MECHANIC to f/u 1x time to ensure tolerance. Oral Medication Intake: Whole with Puree Please contact the pharmacy regarding appropriate crushable or liquid drug formulations that are available whenever modified delivery is recommended. Compensatory Strategies and Precautions to be Taken for Safe Swallow: Sitting Upright (90 deg) Double Swallow Small Bites and Sips Alternate Liquids/Solids Rate of Ingestion Change Avoid Specific Foods Supervision While Eating and Drinking for Safe Swallow: Total Supervision (1:1) Foods to Avoid: Avoid tough, hard to chew solids Swallowing Recommended Treatments: Compens. Strategy Educat. Recommendation for Speech: Inpatient Speech Therapy Comment: 1 f/u Fisheries Diver Clinican/Clinical Fellow: No Supervisory Statement: I have reviewed and agree with the student/clinical fellow's documentation: N/A Speech Language Pathologist: Shelryn Stevenson M.A., CCC-REPAIR MECHANIC
--- NOTE | 2022-11-05 15:51 | PM.IDPN ---
Subjective Subjective Date of Service: 11/05/22 Critical Care Time (minutes): 15 Comment: He remains on oxygen. He has a Aquino catheter in place after retaining and had some straight cath. He has concern over aspiration. Objective Data Labs 11/05/22 06:22 11/05/22 06:22 Labs: Laboratory Results - last 24 hr 11/04/22 11/04/22 11/05/22 16:30 19:12 01:30 WBC RBC Hgb Hct MCV MCH MCHC RDW Plt Count MPV Absolute Nucleated RBC Nucleated RBC % (auto) O2 Saturation 98.0 ABG pH at Pt Temp 7.46 H ABG pCO2 at Pt Temp 44 ABG pO2 at Pt Temp 95 ABG HCO3 32 H ABG Base Excess (Actual) 7.9 Sodium Potassium Chloride Carbon Dioxide Anion Gap BUN Creatinine Estim Creat Clear Calc Estimated GFR Random Glucose Lactic Acid 2.2 H* Lactic Acid F/U @ 2Hr 1.8 Calcium 11/05/22 11/05/22 06:22 06:22 WBC 7.2 RBC 2.78 L Hgb 9.0 L Hct 27.8 L MCV 100.0 H MCH 32.4 MCHC 32.4 RDW 14.6 Plt Count 450 H D MPV 10.3 Absolute Nucleated RBC 0.000 Nucleated RBC % (auto) 0.0 O2 Saturation ABG pH at Pt Temp ABG pCO2 at Pt Temp ABG pO2 at Pt Temp ABG HCO3 ABG Base Excess (Actual) Sodium 137 Potassium 4.4 Chloride 104 Carbon Dioxide 27 Anion Gap 10 L BUN 11 Creatinine 0.63 Estim Creat Clear Calc 132.1 Estimated GFR > 60 Random Glucose 99 Lactic Acid Lactic Acid F/U @ 2Hr Calcium 7.4 L Microbiology Microbiology Results: Microbiology 11/03/22 21:25 Buttock Gram Stain - Final 11/03/22 21:25 Buttock Routine Culture - Preliminary Culture in progress. 11/03/22 18:26 Buttock Gram Stain - Final 11/03/22 18:26 Buttock Routine Culture - Preliminary Gram negative linden Gram negative linden#2 11/04/22 04:44 Blood - Venous Blood Culture - Preliminary No growth after 24 hours. 11/04/22 04:44 Blood - Venous Blood Culture - Preliminary No growth after 24 hours. 11/03/22 18:14 Blood - Venous Blood Culture - Preliminary No growth after 24 hours. 11/03/22 18:19 Blood - Venous Blood Culture - Preliminary No growth after 24 hours. 11/01/22 08:58 Blood - Venous Blood Culture - Preliminary No growth after 48 hours. 11/01/22 08:58 Blood - Venous Blood Culture - Preliminary No growth after 48 hours. 10/18/22 15:26 Blood - Venous Blood Culture - Final No growth after 5 days. 10/18/22 14:49 Blood - Venous Blood Culture - Final No growth after 5 days. 10/18/22 15:17 Urine clean catch - Urine rivas top Urine Culture - Final No growth. Physical Exam Vital Signs: Vital Signs: Last Vital Signs Temp 97.2 F 11/05/22 15:37 Pulse 91 11/05/22 15:37 Resp 18 11/05/22 15:37 BP 128/71 11/05/22 15:37 Pulse Ox 96 11/05/22 15:37 O2 Del Method 11/05/22 15:37 O2 Flow Rate 3 11/05/22 03:44 BMI result Body Mass Index 26.5 Const: General: cooperative Resp: Effort & Inspection: normal respiratory effort Cardio: Rate: regular rate Rhythm: regular rhythm GI: Palpation (GI): Soft to palpation and nontender Assessment and Plan Assessment and plan (1) Fever of unknown origin: Problem details: this is probably due to aspiration CXR shows some right base aspiration concern. There is concern over hospital associated organisms but MRSA nares negative reportedly. Status: Acute Assessment and Plan: Would continue Piperacillin/tazobactam and Vancomycin but switch Vancomycin to Doxycycline if blood cultures negative (100 mg bid). Plan IV antibiotics 3-5 days likely. Time Spent With Patient Time: Total time managing care of this patient today ____ minutes.
[2022-11-05] MEDS: Tamsulosin HCL 0.4 MG CAPSULE PO (21:39)
[2022-11-06] VITALS (10 sets, daily range): BP systolic 111–139; BP diastolic 67–78; PULSE 80–92; RESP 18–24; TEMP 36.9–37.3; O2SAT 93–99
[2022-11-06] MEDS: Piperacillin Sodium/Tazobactam 3.375 GM in 0.9 % Sodium Chloride 50 ML IV ×4 (01:29→17:01)
[2022-11-06] MEDS: Heparin Sodium,Porcine 5,000 UNIT/ML VIAL 5000 UNIT SUBCUT ×2 (06:16→17:09)
[2022-11-06] MEDS: Lactated Ringers 1,000 ML 125 ML IVCONT (06:16)
[2022-11-06 07:12] LABS: Creatinine Clr Calc Pharmacy 138.7; Estimated Glomerular Filt Rate > 60
[2022-11-06 07:15] LABS: Vancomycin Trough 12.3 mcg/mL (10.0-20.0)
--- NOTE | 2022-11-06 08:08 | HE.PHANOTE ---
Vancomycin Dosing Addendum Vancomycin trough 12.3. creatinine stable. continue with current regimen. next level on 11/07/22 @0500.
[2022-11-06 08:58] LABS: ABG Refer to POC result
[2022-11-06] MEDS: vancomycin HCL 1,000 MG in 0.9 % Sodium Chloride 250 ML 270 MG IV (10:02)
[2022-11-06] MEDS: Zinc Oxide 20% Ointment 28.35 GM TUBE 1 APPL TOPICAL ×2 (10:03→20:29)
[2022-11-06] MEDS: Folic Acid 1 MG TABLET PO (10:03)
[2022-11-06] MEDS: Multivitamin TABLET 1 TAB PO (10:03)
[2022-11-06] MEDS: Thiamine HCL 100 MG TABLET PO (10:03)
[2022-11-06] MEDS: Collagenase Clostridium Hist. 30 GM TUBE 1 APPL TOPICAL (10:04)
[2022-11-06] MEDS: Silver Sulfadiazine 1 % Cream 20 GM TUBE 1 APPL TOPICAL (10:04)
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
[2022-11-06] MEDS: Doxycycline Hyclate 100 MG in 0.9 % Sodium Chloride 250 ML 166.67 MG IV (17:02)
[2022-11-06] MEDS: Tamsulosin HCL 0.4 MG CAPSULE PO (20:28)
[2022-11-07] VITALS (8 sets, daily range): BP systolic 124–148; BP diastolic 73–79; PULSE 80–90; RESP 16–20; TEMP 36.4–37.1; O2SAT 91–100
[2022-11-07] MEDS: Piperacillin Sodium/Tazobactam 3.375 GM in 0.9 % Sodium Chloride 50 ML IV ×4 (01:54→19:15)
[2022-11-07] MEDS: Doxycycline Hyclate 100 MG in 0.9 % Sodium Chloride 250 ML 166.67 MG IV ×2 (06:10→16:18)
[2022-11-07] MEDS: Heparin Sodium,Porcine 5,000 UNIT/ML VIAL 5000 UNIT SUBCUT ×2 (06:14→20:15)
[2022-11-07 06:47] LABS: Creatinine Clr Calc Pharmacy 136.4; Estimated Glomerular Filt Rate > 60
[2022-11-07 06:49] LABS: Vancomycin Trough 9.9 mcg/mL (10.0-20.0)
[2022-11-07] MEDS: Folic Acid 1 MG TABLET PO (09:06)
[2022-11-07] MEDS: Thiamine HCL 100 MG TABLET PO (09:06)
[2022-11-07] MEDS: Multivitamin TABLET 1 TAB PO (09:06)
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
[2022-11-07] MEDS: Zinc Oxide 20% Ointment 28.35 GM TUBE 1 APPL TOPICAL ×2 (15:24→20:18)
[2022-11-07] MEDS: Collagenase Clostridium Hist. 30 GM TUBE 1 APPL TOPICAL (15:24)
[2022-11-07] MEDS: Silver Sulfadiazine 1 % Cream 20 GM TUBE 1 APPL TOPICAL (15:25)
--- NOTE | 2022-11-07 16:51 | PC.NURSE ---
Dressing changed approx 1500 per order, coccyx wound measures [id number]. green drainage present on hip wound
[2022-11-07] MEDS: Tamsulosin HCL 0.4 MG CAPSULE PO (20:16)
[2022-11-08] VITALS (9 sets, daily range): BP systolic 131–153; BP diastolic 68–80; PULSE 82–93; RESP 16–20; TEMP 36.4–37.3; O2SAT 94–98
[2022-11-08] MEDS: Piperacillin Sodium/Tazobactam 3.375 GM in 0.9 % Sodium Chloride 50 ML IV ×4 (00:47→18:19)
[2022-11-08] MEDS: Doxycycline Hyclate 100 MG in 0.9 % Sodium Chloride 250 ML 166.67 MG IV ×2 (04:24→16:08)
[2022-11-08] MEDS: Heparin Sodium,Porcine 5,000 UNIT/ML VIAL 5000 UNIT SUBCUT ×2 (05:53→18:20)
[2022-11-08 06:48] LABS: Creatinine Clr Calc Pharmacy 138.7; Estimated Glomerular Filt Rate > 60
[2022-11-08] MEDS: Folic Acid 1 MG TABLET PO (09:04)
[2022-11-08] MEDS: Multivitamin TABLET 1 TAB PO (09:04)
[2022-11-08] MEDS: Thiamine HCL 100 MG TABLET PO (09:04)
[2022-11-08] MEDS: Collagenase Clostridium Hist. 30 GM TUBE 1 APPL TOPICAL (09:05)
[2022-11-08] MEDS: Zinc Oxide 20% Ointment 28.35 GM TUBE 1 APPL TOPICAL (09:05)
[2022-11-08] MEDS: Silver Sulfadiazine 1 % Cream 20 GM TUBE 1 APPL TOPICAL (09:05)
--- NOTE | 2022-11-08 10:48 | MHC.CM.PN ---
[facility] @ [facility] will be here tomorrow to evaluate Patient for appropriateness for LTC in their facility;CM will follow.
--- NOTE | 2022-11-08 11:03 | MHC.CLN ---
F/U PO INTAKE 50-75% DIET RX: GROUND M/S -APPROPRIATE PT RECEIVING ENSURE TID PROVIDES 1050KCALS, 60G PROTEIN WITH 100% ACCEPTANCE CONTINUE TO MONITOR PO INTAKE AND ENCOURAGE SUPPLEMENT FOR WOUND HEALING
--- NOTE | 2022-11-08 12:40 | P.PNIM_ITS ---
Subjective Subjective Date of Service: 11/08/22 Interval History: seen and examined this morning follow up for multiple issues, aspiration pneumonia no overnight events no complaints this am Review of Systems Review of Systems: Yes all other systems are reviewed and are negative Constitutional Constitutional: Denies chills and Denies fever(s) Cardiovascular Cardiovascular: Denies chest pain, Denies palpitations and Denies dyspnea Respiratory Respiratory: Denies cough and Denies dyspnea Gastrointestinal Gastrointestinal: Denies abdominal pain, Denies nausea and Denies vomiting Endocrine Endocrine: Denies palpitations Physical Exam Vital Signs: Vital Signs: Last Vital Signs Temp 99.1 F 11/08/22 11:50 Pulse 89 11/08/22 11:50 Resp 19 11/08/22 11:50 BP 140/70 H 11/08/22 11:50 Pulse Ox 97 11/08/22 11:50 O2 Del Method 11/08/22 11:50 O2 Flow Rate 3 11/08/22 03:08 BMI result Body Mass Index 26.5 Appearing in no acute distress lung sounds are clear to auscultation heart regular rate rhythm, clear S1, S2 positive bowel sounds, abdomen is soft, nontender neuro patient is alert x3, no focal deficits Objective Data Active Medications Acetaminophen (Acetaminophen 325 Mg Tablet) 650 mg PO Q6H PRN PRN Reason: Pain, Mild (Pain Scale 1-3) Last Admin: 11/04/22 11:14 Dose: 650 mg Documented By: CUAUHTEMOC Collagenase (Collagenase Clostridium Hist. 30 Gm Tube) 1 appl TOPICAL DAILY [facility]; Protocol Last Admin: 11/08/22 09:05 Dose: 1 appl Documented By: MADISON Folic Acid (Folic Acid 1 Mg Tablet) 1 mg PO DAILY [facility] Last Admin: 11/08/22 09:04 Dose: 1 mg Documented By: MADISON Heparin Sodium (Porcine) (Heparin Sodium,Porcine 5,000 Unit/Ml Vial) 5,000 unit SUBCUT Q12H [facility] Last Admin: 11/08/22 05:53 Dose: 5,000 unit Documented By: FLORENCIO Piperacillin Sod/Tazobactam (Sod 3.375 gm/ Sodium Chloride) 50 mls @ 100 mls/hr IV Q6H [facility] Last Infusion: 11/08/22 12:17 Dose: 100 mls/hr Documented By: JAYLYN Doxycycline Hyclate 100 mg/ (Sodium Chloride) 250 mls @ 166.67 mls/hr IV Q12H [facility] Last Infusion: 11/08/22 05:58 Dose: 0 mls/hr Documented By: FLORENCIO Levalbuterol HCl (Levalbuterol Hcl 1.25 Mg/0.5 Ml Vial.Neb) 1.25 mg INHALE RQ4H WHILE AWAKE [facility] Last Admin: 11/08/22 11:26 Dose: 1.25 mg Documented By: MARICEL Lisinopril (Lisinopril 10 Mg Tablet) 10 mg PO DAILY [facility]; Protocol Last Admin: 11/03/22 09:29 Dose: 10 mg Documented By: HILARIA Multivitamins/Vitamin C (Multivitamin Tablet) 1 tab PO DAILY [facility] Last Admin: 11/08/22 09:04 Dose: 1 tab Documented By: MADISON Pharmacy Consult (Consult Rx Perform Med Rec) 1 each MISCELLANE ONCE PRN PRN Reason: Consult order Pharmacy Consult (Consult Rx Etoh Phenob Im/Po) 1 each MISCELLANE ONCE PRN; Protocol PRN Reason: Consult order Silver Sulfadiazine (Silver Sulfadiazine 1 % Cream 20 Gm Tube) 1 appl TOPICAL DAILY [facility] Last Admin: 11/08/22 09:05 Dose: 1 appl Documented By: MADISON Sodium Chloride (0.9 % Sodium Chloride Flush 3 Ml Syringe) 3 ml IVFLUSH QSHIFT [facility] Last Admin: 11/08/22 07:31 Dose: Not Given Documented By: MADISON Non-Admin Reason: See Note Tamsulosin HCl (Tamsulosin Hcl 0.4 Mg Capsule) 0.4 mg PO BEDTIME [facility] Last Admin: 11/07/22 20:16 Dose: 0.4 mg Documented By: FLORENCIO Thiamine HCl (Thiamine Hcl 100 Mg Tablet) 100 mg PO DAILY [facility] Last Admin: 11/08/22 09:04 Dose: 100 mg Documented By: MADISON Zinc Oxide (Zinc Oxide 20% Ointment 28.35 Gm Tube) 1 appl TOPICAL BID [facility]; Protocol Last Admin: 11/08/22 09:05 Dose: 1 appl Documented By: MADISON Labs 11/05/22 06:22 11/08/22 06:14 Labs: Laboratory Results - last 24 hr 11/08/22 06:14 Estim Creat Clear Calc 138.7 Estimated GFR > 60 Assessment and Plan (1) Cognitive disorder: Status: Acute (2) Aspiration pneumonia: Status: Acute Plan 67-year-old man presented with failure to thrive and severe alcoholism, he drinks on a daily basis and was found his home extremely unkept Severe sepsis, related to cellulitis, COVID-19 and influenza on admission and then resolved 11/03 spiked fever again and met sepsis criteria with fever, tachycardia. no leukocytosis lactic acid 2.2 resolved with IVF; bp low, improved with IVF/albumin blood cultures negative to date ua negative, RPP + for flu (but was flu a + on admission) has wound on sacrum and left hip, do not appear infected repeat CXR 11/04 showing persistent patchy opacity ?pneumonia although appearance similar to previous MRSA nares negative seen by ID consult, recommend vanc/doxy IV x 3-5 days possible aspiration - seen by speech, rec NDD2 diet- aspiration precautions acute respiratory failure secondary to pneumonia see above wean oxygen as tolerated Stage II pressure ulcer, left hip wound. present on admission Keep area clean followed by surgery - rec to change to silvadine daily for sacral wound and santyl for left hip wound culture - growing multiple organisms - superficial wound culture not cl inically significant monitor daily urinary retention draper catheter COVID 19/influenza a tested + 10/18 no remdesivir or steroids as had no hypoxia at that time s/p 7 day course of Unasyn and vancomycin and completed course of tamiflu Covid pos 10/24/21, recovered Failure to thrive Likely secondary to alcohol use Physical therapy consultation- rec STR protein to diet, encourage oral intake seen by OT - scored 06/22 on MOCA - see full OT eval for details Hypertension bp improving will hold lisinopril for now Alcohol use disorder completed phenobarbital seen by recovery team continue Folic acid, thiamine, multivitamin discussed importance of alcohol cessation seen by addiction medicine - seen multiple times, declines resources, or referrals etc Hypernatremia resolved Hypokalemia resolved with replacement Elevated CPK s/p prior to admission patient found on the ground, unable to determine how long he had been there Secondary to dehydration, fall CPK trending down Transaminitis. Trending down Secondary to alcohol abuse Elevated troponin. No delta No complaints of chest pain No ischemic changes on EKG Likely secondary to elevated CPK right renal lesion seen on CT - recommend outpatient CT with renal mass protocol vs MR with contrast for further characterization DVT prophylaxis with heparin Full code Attending Dr. Gonzalez Dispo: PT rec STR once covid recovered 10/29/21. not working with PT much. not getting out of bed on his own. seen by psych, recommend OT eval for [place] due to concern for cognitive impairment. rec STR with likely need for longer term sonja tance/supervision continued hospitalization for treatment of influenza a and COVID-19 along with s dick buttocks cellulitis and failure to thrive, safe disposition Time Spent With Patient Time: Total time managing care of this patient today ____ minutes. Quality Stroke Does the patient have a stroke diagnosis?: No VTE Prior VTE?: No VTE Risk Level:: Medical - moderate - high VTE Device Contraindication: N/A - Device Ordered VTE Drug Contraindication: N/A - Med Ordered
--- NOTE | 2022-11-08 13:11 | MHC.CM.PN ---
CM received a call from Patient's Sister/HCP/Rosalie @ [phone] and CM updated her on dc planning ([place] [facility] will be here tomorrow to assess Patient for their facilities) and CM relayed to [employer] EXTRACTOR/Brittany that Rosalie is requesting a call to discuss Patient's clinical update. CM will follow.
--- NOTE | 2022-11-08 15:53 | MHC.SL.SWA ---
Speech Pathologist Impression: Oral phase dysphagia d/t edentulous state Risk of Aspiration Due to: History of Pneumonia Dysphasia Diet Status: No Change Liquid Consistency and Strategies for Safe Swallow: Liquid Intake Recommendation: Thin Liquid Intake Strategies: Small Sips Solid Food Consistency: Dietary Recommendations: Grnd/Mech Altered (NDD2) Additional Modifications to Solid Foods: Pt w/ oral phase dysphagia secondary to edentulous state. Pt appears to be on appropriate diet textures as he does not have his dentures here in the hospital- Recommend continue on GROUND MECH ALTERED (NDD2) solids and THIN liquids, with pills WHOLE in PUREE. Further ST intervention no longer warranted at this time. Please re-refer if there are any changes or further concern. Oral Medication Intake: Whole with Puree Please contact the pharmacy regarding appropriate crushable or liquid drug formulations that are available whenever modified delivery is recommended. Compensatory Strategies and Precautions to be Taken for Safe Swallow: Sitting Upright (90 deg) No Straw Small Bites and Sips Alternate Liquids/Solids Rate of Ingestion Change Avoid Specific Foods Supervision While Eating and Drinking for Safe Swallow: Total Supervision (1:1) Foods to Avoid: Avoid tough, hard to chew solids Swallowing Recommended Treatments: Compens. Strategy Educat. Recommendation for Speech: D/C Comment: Pt could potentially tolerate more advanced solids should he have his dentures. Pt does not have his dentures here with him at the hospital at this time. Utility Worker Rol[employer] Shop Clinican/Clinical Fellow: No Supervisory Statement: I have reviewed and agree with the student/clinical fellow's documentation: N/A Speech Language Pathologist: Sherlyn Stevenson M.A., CCC-DAY CARE SUPERVISOR
[2022-11-08] MEDS: Tamsulosin HCL 0.4 MG CAPSULE PO (21:40)
[2022-11-09] VITALS (10 sets, daily range): BP systolic 107–161; BP diastolic 59–87; PULSE 56–109; RESP 16–20; TEMP 36.3–36.8; O2SAT 91–96
[2022-11-09] MEDS: Piperacillin Sodium/Tazobactam 3.375 GM in 0.9 % Sodium Chloride 50 ML IV ×3 (00:44→12:10)
[2022-11-09] MEDS: Doxycycline Hyclate 100 MG in 0.9 % Sodium Chloride 250 ML 166.6 MG IV (04:15)
[2022-11-09] MEDS: Heparin Sodium,Porcine 5,000 UNIT/ML VIAL 5000 UNIT SUBCUT ×2 (05:52→19:34)
[2022-11-09 07:04] LABS: Creatinine Clr Calc Pharmacy 136.4; Estimated Glomerular Filt Rate > 60
[2022-11-09] MEDS: Silver Sulfadiazine 1 % Cream 20 GM TUBE 1 APPL TOPICAL (09:35)
[2022-11-09] MEDS: Multivitamin TABLET 1 TAB PO (09:35)
[2022-11-09] MEDS: Folic Acid 1 MG TABLET PO (09:35)
[2022-11-09] MEDS: Thiamine HCL 100 MG TABLET PO (09:35)
[2022-11-09] MEDS: Collagenase Clostridium Hist. 30 GM TUBE 1 APPL TOPICAL (09:35)
[2022-11-09] MEDS: Zinc Oxide 20% Ointment 28.35 GM TUBE 1 APPL TOPICAL ×2 (09:35→20:21)
--- NOTE | 2022-11-09 13:54 | HO.PM.IMPN ---
Subjective Subjective Date of Service: 11/09/22 Interval History: seen and examined this morning follow up for multiple issues, aspiration pneumonia no overnight events no complaints this am Review of Systems Review of Systems: Yes all other systems are reviewed and are negative Constitutional Constitutional: Denies chills and Denies fever(s) Cardiovascular Cardiovascular: Denies chest pain, Denies palpitations and Denies dyspnea Respiratory Respiratory: Denies cough and Denies dyspnea Gastrointestinal Gastrointestinal: Denies abdominal pain, Denies nausea and Denies vomiting Endocrine Endocrine: Denies palpitations Physical Exam Vital Signs: Vital Signs: Last Vital Signs Temp 97.4 F 11/09/22 12:00 Pulse 109 H 11/09/22 12:00 Resp 20 11/09/22 12:00 BP 130/68 11/09/22 12:00 Pulse Ox 94 11/09/22 12:00 O2 Del Method 11/09/22 12:00 O2 Flow Rate 2 11/09/22 12:00 BMI result Body Mass Index 26.5 Appearing in no acute distress lung sounds are clear to auscultation heart regular rate rhythm, clear S1, S2 positive bowel sounds, abdomen is soft, nontender neuro patient is alert, confused Objective Data Active Medications Acetaminophen (Acetaminophen 325 Mg Tablet) 650 mg PO Q6H PRN PRN Reason: Pain, Mild (Pain Scale 1-3) Last Admin: 11/04/22 11:14 Dose: 650 mg Documented By: CUAUHTEMOC Collagenase (Collagenase Clostridium Hist. 30 Gm Tube) 1 appl TOPICAL DAILY [facility]; Protocol Last Admin: 11/09/22 09:35 Dose: 1 appl Documented By: MADISON Folic Acid (Folic Acid 1 Mg Tablet) 1 mg PO DAILY [facility] Last Admin: 11/09/22 09:35 Dose: 1 mg Documented By: MADISON Heparin Sodium (Porcine) (Heparin Sodium,Porcine 5,000 Unit/Ml Vial) 5,000 unit SUBCUT Q12H [facility] Last Admin: 11/09/22 05:52 Dose: 5,000 unit Documented By: TERRIZEJuan Piperacillin Sod/Tazobactam (Sod 3.375 gm/ Sodium Chloride) 50 mls @ 100 mls/hr IV Q6H [facility] Last Infusion: 11/09/22 12:42 Dose: 0 mls/hr Documented By: MADISON Doxycycline Hyclate 100 mg/ (Sodium Chloride) 250 mls @ 166.67 mls/hr IV Q12H [facility] Last Infusion: 11/09/22 05:50 Dose: 0 mls/hr Documented By: CHIO Levalbuterol HCl (Levalbuterol Hcl 1.25 Mg/0.5 Ml Vial.Neb) 1.25 mg INHALE RQ4H WHILE AWAKE [facility] Last Admin: 11/09/22 11:36 Dose: 1.25 mg Documented By: CHELI Lisinopril (Lisinopril 10 Mg Tablet) 10 mg PO DAILY [facility]; Protocol Last Admin: 11/03/22 09:29 Dose: 10 mg Documented By: HILARIA Multivitamins/Vitamin C (Multivitamin Tablet) 1 tab PO DAILY [facility] Last Admin: 11/09/22 09:35 Dose: 1 tab Documented By: MADISON Pharmacy Consult (Consult Rx Perform Med Rec) 1 each MISCELLANE ONCE PRN PRN Reason: Consult order Pharmacy Consult (Consult Rx Etoh Phenob Im/Po) 1 each MISCELLANE ONCE [facility]; Protocol PRN Reason: Consult order Silver Sulfadiazine (Silver Sulfadiazine 1 % Cream 20 Gm Tube) 1 appl TOPICAL DAILY [facility] Last Admin: 11/09/22 09:35 Dose: 1 appl Documented By: MADISON Sodium Chloride (0.9 % Sodium Chloride Flush 3 Ml Syringe) 3 ml IVFLUSH QSHIFT [facility] Last Admin: 11/09/22 07:17 Dose: Not Given Documented By: MADISON Non-Admin Reason: See Note Tamsulosin HCl (Tamsulosin Hcl 0.4 Mg Capsule) 0.4 mg PO BEDTIME [facility] Last Admin: 11/08/22 21:40 Dose: 0.4 mg Documented By: CHIO Thiamine HCl (Thiamine Hcl 100 Mg Tablet) 100 mg PO DAILY [facility] Last Admin: 11/09/22 09:35 Dose: 100 mg Documented By: MADISON Zinc Oxide (Zinc Oxide 20% Ointment 28.35 Gm Tube) 1 appl TOPICAL BID [facility]; Protocol Last Admin: 11/09/22 09:35 Dose: 1 appl Documented By: MADISON Labs 11/05/22 06:22 11/09/22 06:09 Labs: Laboratory Results - last 24 hr 11/09/22 06:09 Estim Creat Clear Calc 136.4 Estimated GFR > 60 Microbiology Microbiology Results: Microbiology 11/04/22 04:44 Blood Culture - Final Blood - Venous No growth after 5 days. 11/04/22 04:44 Blood Culture - Final Blood - Venous No growth after 5 days. 11/03/22 18:14 Blood Culture - Final Blood - Venous No growth after 5 days. 11/03/22 18:19 Blood Culture - Final Blood - Venous No growth after 5 days. Assessment and Plan (1) Cognitive disorder: Status: Acute (2) Aspiration pneumonia: Status: Acute Plan 67-year-old man presented with failure to thrive and severe alcoholism, he drinks on a daily basis and was found his home extremely unkept Stage II pressure ulcer, left hip wound. present on admission Keep area clean followed by surgery - rec to change to silvadine daily for sacral wound and santyl for left hip wound culture - growing multiple organisms - superficial wound culture not clinically significant monitor daily Severe sepsis, related to cellulitis, COVID-19 and influenza on admission and then resolved 11/03 spiked fever again and met sepsis criteria with fever, tachycardia. no leukocytosis lactic acid 2.2 resolved with IVF; bp low, improved with IVF/albumin blood cultures negative to date, ua negative, RPP + for flu on admission wound on sacrum and left hip, do not appear infected repeat CXR 11/04 showing persistent patchy opacity ?pneumonia although appearance similar to previous MRSA nares negative seen by ID consult, recommend zosyn/doxy IV x 3-5 days for aspiration. completed seen by speech, rec NDD2 diet- aspiration precautions acute respiratory failure secondary to pneumonia see above wean oxygen as tolerated urinary retention draper catheter COVID 19/influenza a tested + 10/18 no remdesivir or steroids as had no hypoxia at that time s/p 7 day course of Unasyn and vancomycin and completed course of tamiflu Covid pos 10/24/21, recovered Failure to thrive Likely secondary to alcohol use Physical therapy consultation- rec STR protein to diet, encourage oral intake seen by OT - scored 06/22 on MOCA - see full OT eval for details Hypertension lisinopril Alcohol use disorder completed phenobarbital seen by recovery team continue Folic acid, thiamine, multivitamin discussed importance of alcohol cessation seen by addiction medicine - seen multiple times, declines resources, or referrals etc Hypernatremia resolved Hypokalemia resolved with replacement Elevated CPK s/p prior to admission patient found on the ground, unable to determine how long he had been there Secondary to dehydration, fall CPK trending down Transaminitis. Trending down Secondary to alcohol abuse Elevated troponin. No delta No complaints of chest pain No ischemic changes on EKG Likely secondary to elevated CPK right renal lesion seen on CT - recommend outpatient CT with renal mass protocol vs MR with contrast for further characterization DVT prophylaxis with heparin Full code Attending Dr. Gonzalez Dispo: PT rec STR. seen by psych, recommend OT eval for [place] due to concern for cognitive impairment. [place] to evaluate patient today for LTC continued hospitalization for treatment of influenza a and COVID-19 along with severe buttocks cellulitis and failure to thrive, safe disposition Time Spent With Patient Time: Total time managing care of this patient today ____ minutes. Quality Stroke Does the patient have a stroke diagnosis?: No VTE Prior VTE?: No VTE Risk Level:: Medical - moderate - high VTE Device Contraindication: N/A - Device Ordered VTE Drug Contraindication: N/A - Med Ordered
--- NOTE | 2022-11-09 15:30 | MHC.CM.PN ---
A referral has been made to [facility] [employer] to assist Patient and his Sister with a [facility] application for anticipated LTC.
[2022-11-09] MEDS: Tamsulosin HCL 0.4 MG CAPSULE PO (20:21)
[2022-11-10] VITALS (8 sets, daily range): BP systolic 100–145; BP diastolic 57–81; PULSE 89–101; RESP 14–20; TEMP 36.7–37.7; O2SAT 91–97
[2022-11-10] MEDS: Heparin Sodium,Porcine 5,000 UNIT/ML VIAL 5000 UNIT SUBCUT ×2 (06:08→16:30)
--- NOTE | 2022-11-10 08:47 | MHC.CM.PN ---
A clinical update has been sent to all facilities that have been referred. The patient's mentation is improving. He is participating in therapy. [facility] has not responded with a bed offer since meeting with the patient yesterday.
[2022-11-10] MEDS: Thiamine HCL 100 MG TABLET PO (09:51)
[2022-11-10] MEDS: Folic Acid 1 MG TABLET PO (09:51)
[2022-11-10] MEDS: Multivitamin TABLET 1 TAB PO (09:52)
--- NOTE | 2022-11-10 10:35 | MHC.CLN ---
F/U PO INTAKE VARIABLE RANGING FROM 0-75% DIET RX: GROUND M/S -APPROPRIATE PT RECEIVING ENSURE TID PROVIDES 1050KCALS, 60G PROTEIN WITH 100% ACCEPTANCE CONTINUE TO MONITOR PO INTAKE AND ENCOURAGE SUPPLEMENT FOR WOUND HEALING AWAITING PLACEMENT
[2022-11-10] MEDS: Silver Sulfadiazine 1 % Cream 20 GM TUBE 1 APPL TOPICAL (15:40)
[2022-11-10] MEDS: Zinc Oxide 20% Ointment 28.35 GM TUBE 1 APPL TOPICAL ×2 (15:40→19:53)
[2022-11-10] MEDS: Collagenase Clostridium Hist. 30 GM TUBE 1 APPL TOPICAL (15:40)
--- NOTE | 2022-11-10 16:01 | HO.PM.IMPN ---
Subjective Subjective Date of Service: 11/11/22 Interval History: Complaining of left elbow and left ankle pain of several weeks duration, denies acute injury, denies fever chills, tolerating diet with no nausea, no vomiting, no abdominal pain, no other acute events overnight, no chest pain, no palpitations no lightheadedness or dizziness. Review of Systems Review of Systems: Yes all other systems are reviewed and are negative Physical Exam Vital Signs: Vital Signs: Last Vital Signs Temp 99.8 F 11/10/22 15:49 Pulse 92 11/10/22 15:49 Resp 19 11/10/22 15:49 BP 125/70 11/10/22 15:49 Pulse Ox 95 11/10/22 15:49 O2 Del Method 11/10/22 15:49 O2 Flow Rate 3 11/10/22 11:14 BMI result Body Mass Index 26.5 Const: Other: General awake alert x3,in no acute distress. Neck no JVD. CVS regular rate rhythm, Respiratory lungs clear to auscultation, no respiratory distress, no wheeze, no rhonchi. Gastrointestinal abdomen soft, nontender, bowel sounds audible, no guarding , no rigidity. Extremities left elbow normal examination good range of motion no redness no warmth, left ankle good range of motion , mild bilateral ankle redness and swelling Neuro nonfocal ,speech clear. Skin no rash Objective Data Active Medications Acetaminophen (Acetaminophen 325 Mg Tablet) 650 mg PO Q6H PRN PRN Reason: Pain, Mild (Pain Scale 1-3) Last Admin: 11/04/22 11:14 Dose: 650 mg Documented By: CUAUHTEMOC Collagenase (Collagenase Clostridium Hist. 30 Gm Tube) 1 appl TOPICAL DAILY REPLACED BY [facility]; Protocol Last Admin: 11/10/22 15:40 Dose: 1 appl Documented By: HILARIA Folic Acid (Folic Acid 1 Mg Tablet) 1 mg PO DAILY REPLACED BY [facility] Last Admin: 11/10/22 09:51 Dose: 1 mg Documented By: HILARIA Heparin Sodium (Porcine) (Heparin Sodium,Porcine 5,000 Unit/Ml Vial) 5,000 unit SUBCUT Q12H REPLACED BY [facility] Last Admin: 11/10/22 06:08 Dose: 5,000 unit Documented By: ТАТЬЯНА Levalbuterol HCl (Levalbuterol Hcl 1.25 Mg/0.5 Ml Vial.Neb) 1.25 mg INHALE RQ4H WHILE AWAKE REPLACED BY [facility] Last Admin: 11/10/22 12:00 Dose: Not Given Documented By: NISHI Non-Admin Reason: pt eating Lisinopril (Lisinopril 10 Mg Tablet) 10 mg PO DAILY REPLACED BY [facility]; Protocol Last Admin: 11/03/22 09:29 Dose: 10 mg Documented By: HILARIA Multivitamins/Vitamin C (Multivitamin Tablet) 1 tab PO DAILY REPLACED BY [facility] Last Admin: 11/10/22 09:52 Dose: 1 tab Documented By: HILARIA Pharmacy Consult (Consult Rx Perform Med Rec) 1 each MISCELLANE ONCE PRN PRN Reason: Consult order Pharmacy Consult (Consult Rx Etoh Phenob Im/Po) 1 each MISCELLANE ONCE PRN; Protocol PRN Reason: Consult order Silver Sulfadiazine (Silver Sulfadiazine 1 % Cream 20 Gm Tube) 1 appl TOPICAL DAILY REPLACED BY [facility] Last Admin: 11/10/22 15:40 Dose: 1 appl Documented By: HILARIA Sodium Chloride (0.9 % Sodium Chloride Flush 3 Ml Syringe) 3 ml IVFLUSH QSHIFT REPLACED BY [facility] Last Admin: 11/10/22 09:51 Dose: 3 ml Documented By: HILARIA Tamsulosin HCl (Tamsulosin Hcl 0.4 Mg Capsule) 0.4 mg PO BEDTIME REPLACED BY [facility] Last Admin: 11/09/22 20:21 Dose: 0.4 mg Documented By: BHARAT Thiamine HCl (Thiamine Hcl 100 Mg Tablet) 100 mg PO DAILY REPLACED BY [facility] Last Admin: 11/10/22 09:51 Dose: 100 mg Documented By: HILARIA Zinc Oxide (Zinc Oxide 20% Ointment 28.35 Gm Tube) 1 appl TOPICAL BID REPLACED BY [facility]; Protocol Last Admin: 11/10/22 15:40 Dose: 1 appl Documented By: HILARIA Labs 11/05/22 06:22 11/09/22 06:09 Assessment and Plan (1) Cognitive disorder: Status: Acute (2) Aspiration pneumonia: Status: Acute Plan 67-year-old man presented with failure to thrive and severe alcoholism, he drinks on a daily basis and was found his home extremely unkept Stage II pressure ulcer, left hip wound. present on admission followed by surgery continue silvadine daily for sacral wound and santyl for left hip wound culture - growing multiple organisms - superficial wound culture not clinically significant Continue frequent position change and high-protein diet Severe sepsis, related to cellulitis, COVID-19 and influenza A on admission on 11/03 spiked fever again and met sepsis criteria with fever, tachycardia, no leukocytosis lactic acid 2.2 resolved with IVF; bp low, improved with IVF/albumin blood cultures negative , ua negative wound on sacrum and left hip, do not appear infected repeat CXR 11/04 showing persistent patchy opacity unchanged from before MRSA nares negative seen by ID consult, recommend zosyn/doxy IV finished 5 day course of antibiotic seen by speech, rec NDD2 diet- aspiration precautions acute respiratory failure secondary to pneumonia Resolved room air 95% Left elbow and left ankle pain seems musculoskeletal no evidence of acute infection or gout recommend to do [id number] exercises and Tylenol for pain. urinary retention draper catheter , continue Flomax COVID 19/influenza A tested + 10/18 no remdesivir or steroids as had no hypoxia at that time completed course of tamiflu Failure to thrive Likely secondary to alcohol use Physical therapy consultation- rec STR Continue high-protein diet seen by OT - scored 06/22 on MOCA - see full OT eval for details Hypertension Stable blood pressure, lisinopril on hold Alcohol use disorder completed phenobarbital seen by recovery team , declined resources on referrals continue Folic acid, thiamine, multivitamin Hypernatremia resolved Hypokalemia resolved with replacement Elevated CPK Secondary to dehydration, fall CPK trending down to 394, normal renal function Transaminitis. Trending down, no abdominal pain, Secondary to alcohol abuse Elevated troponin. No delta No complaints of chest pain No ischemic changes on EKG Likely secondary to elevated CPK right renal lesion seen on CT - recommend outpatient CT with renal mass protocol vs MR with contrast for further characterization DVT prophylaxis with heparin Full code Dispo: PT rec STR. [place] to evaluate patient for short-term rehab Time Spent With Patient Time: Total time managing care of this patient today ____ minutes. Quality Stroke Does the patient have a stroke diagnosis?: No VTE Prior VTE?: No VTE Risk Level:: Medical - moderate - high VTE Device Contraindication: N/A - Device Ordered VTE Drug Contraindication: N/A - Med Ordered
[2022-11-10] MEDS: Acetaminophen 325 MG TABLET 650 MG PO (16:30)
[2022-11-10] MEDS: Tamsulosin HCL 0.4 MG CAPSULE PO (19:53)
[2022-11-11] VITALS (8 sets, daily range): BP systolic 117–129; BP diastolic 58–76; PULSE 80–104; RESP 18–22; TEMP 36.6–37.3; O2SAT 93–97
[2022-11-11] MEDS: Heparin Sodium,Porcine 5,000 UNIT/ML VIAL 5000 UNIT SUBCUT ×2 (05:15→16:53)
[2022-11-11] MEDS: Multivitamin TABLET 1 TAB PO (09:18)
[2022-11-11] MEDS: Folic Acid 1 MG TABLET PO (09:18)
[2022-11-11] MEDS: Thiamine HCL 100 MG TABLET PO (09:18)
[2022-11-11] MEDS: Silver Sulfadiazine 1 % Cream 20 GM TUBE 1 APPL TOPICAL (09:19)
[2022-11-11] MEDS: Zinc Oxide 20% Ointment 28.35 GM TUBE 1 APPL TOPICAL ×2 (09:19→21:04)
[2022-11-11] MEDS: Collagenase Clostridium Hist. 30 GM TUBE 1 APPL TOPICAL (09:19)
--- NOTE | 2022-11-11 14:46 | P.PNIM_ITS ---
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 Review of Systems Review of Systems: Yes all other systems are reviewed and are negative Physical Exam Vital Signs: Vital Signs: Last Vital Signs Temp 98.8 F 11/11/22 12:00 Pulse 99 11/11/22 12:00 Resp 22 H 11/11/22 12:00 BP 118/72 11/11/22 12:00 Pulse Ox 93 11/11/22 12:00 O2 Del Method 11/11/22 12:00 O2 Flow Rate 1.5 11/11/22 12:00 BMI result Body Mass Index 26.5 Const: Other: General awake aler t x3,in no acute d istress.? Neck no JVD. CVS? regular rate rhythm, Respi ratory lungs clear to auscultation, no respiratory dis tress, no wheeze, no rhonchi. Gastro intestinal abdomen soft, nontender, bowel sounds audib le,? no guarding , no rigidity. Extr emities left elbow normal examinatio n. good range of m otion, no redness, no warmth, left a nkle good range of motion, unchanged examination. Uvaldo ro nonfocal ,speec h clear. Skin no r lizbeth Objective Data Active Medications Acetaminophen (Acetaminophen 325 Mg Tablet) 650 mg PO Q6H PRN PRN Reason: Pain, Mild (Pain Scale 1-3) Last Admin: 11/10/22 16:30 Dose: 650 mg Documented By: HILARIA Collagenase (Collagenase Clostridium Hist. 30 Gm Tube) 1 appl TOPICAL DAILY [facility]; Protocol Last Admin: 11/11/22 09:19 Dose: 1 appl Documented By: ALONZO Folic Acid (Folic Acid 1 Mg Tablet) 1 mg PO DAILY [facility] Last Admin: 11/11/22 09:18 Dose: 1 mg Documented By: ALONZO Heparin Sodium (Porcine) (Heparin Sodium,Porcine 5,000 Unit/Ml Vial) 5,000 unit SUBCUT Q12H [facility] Last Admin: 11/11/22 05:15 Dose: 5,000 unit Documented By: PORFIRIO Lisinopril (Lisinopril 10 Mg Tablet) 10 mg PO DAILY [facility]; Protocol Last Admin: 11/03/22 09:29 Dose: 10 mg Documented By: HILARIA Multivitamins/Vitamin C (Multivitamin Tablet) 1 tab PO DAILY [facility] Last Admin: 11/11/22 09:18 Dose: 1 tab Documented By: ALONZO Pharmacy Consult (Consult Rx Perform Med Rec) 1 each MISCELLANE ONCE PRN PRN Reason: Consult order Pharmacy Consult (Consult Rx Etoh Phenob Im/Po) 1 each MISCELLANE ONCE PRN; Protocol PRN Reason: Consult order Silver Sulfadiazine (Silver Sulfadiazine 1 % Cream 20 Gm Tube) 1 appl TOPICAL DAILY [facility] Last Admin: 11/11/22 09:19 Dose: 1 appl Documented By: ALONZO Sodium Chloride (0.9 % Sodium Chloride Flush 3 Ml Syringe) 3 ml IVFLUSH QSHIFT [facility] Last Admin: 11/11/22 09:18 Dose: 3 ml Documented By: ALONZO Tamsulosin HCl (Tamsulosin Hcl 0.4 Mg Capsule) 0.4 mg PO BEDTIME [facility] Last Admin: 11/10/22 19:53 Dose: 0.4 mg Documented By: BHARAT Thiamine HCl (Thiamine Hcl 100 Mg Tablet) 100 mg PO DAILY [facility] Last Admin: 11/11/22 09:18 Dose: 100 mg Documented By: ALONZO Zinc Oxide (Zinc Oxide 20% Ointment 28.35 Gm Tube) 1 appl TOPICAL BID [facility]; Protocol Last Admin: 11/11/22 09:19 Dose: 1 appl Documented By: ALONZO Labs 11/05/22 06:22 11/09/22 06:09 Assessment and Plan (1) Cognitive disorder: Status: Acute (2) Aspiration pneumonia: Status: Acute Plan 67-year-old man presented with failure to thrive and severe alcoholism, he drinks on a daily basis and was found his home extremely unkept Stage II pressure ulcer, left hip wound. present on admission continue silvadine daily for sacral wound and santyl for left hip wound culture - growing multiple organisms - superficial wound culture not clinically significant Continue frequent position change and high-protein diet Severe sepsis, related to cellulitis, COVID-19 and influenza A on admission on 11/03 spiked fever again and met sepsis criteria with fever, tachycardia, no leukocytosis lactic acid 2.2 resolved with IVF; bp low, improved with IVF/albumin blood cultures negative , ua negative wound on sacrum and left hip, not appear infected repeat CXR 11/04 showed persistent patchy opacity unchanged from before MRSA nares negative seen by ID , recommend zosyn/doxy IV finished 5 day course of antibiotic seen by speech, rec NDD2 diet- aspiration precautions Now with no recurrent fevers hemodynamically stable acute respiratory failure secondary to pneumonia Resolved room air 95% Left elbow and left ankle pain seems musculoskeletal, no evidence of acute infection, or gout recommend to do [id number] exercises and Tylenol for pain. urinary retention Will DC draper catheter , give voiding trial, continue Flomax COVID 19/influenza A tested + 10/18 no remdesivir or steroids as had no hypoxia at that time completed course of tamiflu Failure to thrive Likely secondary to alcohol use Physical therapy consultation- rec STR Continue high-protein diet seen by OT - scored 06/22 on MOCA - see full OT eval for details Hypertension Stable blood pressure, will DC lisinopril on hold for last several days Alcohol use disorder completed phenobarbital seen by recovery team , declined resources on referrals continue Folic acid, thiamine, multivitamin Hypernatremia resolved Hypokalemia resolved with replacement Elevated CPK Secondary to dehydration, fall CPK trending down to 394, normal renal function Transaminitis. Trending down, no abdominal pain, Secondary to alcohol abuse Elevated troponin. No delta No complaints of chest pain No ischemic changes on EKG Likely secondary to elevated CPK right renal lesion seen on CT - recommend outpatient CT with renal mass protocol vs MR with contrast for further characterization DVT prophylaxis with heparin Full code Dispo: PT rec STR. [place] to evaluate patient for short-term rehab Time Spent With Patient Time: Total time managing care of this patient today ____ minutes. Quality Stroke Does the patient have a stroke diagnosis?: No VTE Prior VTE?: No VTE Risk Level:: Medical - moderate - high VTE Device Contraindication: N/A - Device Ordered VTE Drug Contraindication: N/A - Med Ordered
--- NOTE | 2022-11-11 17:15 | PC.NURSE ---
report received from overnight RN, multimedia artist per DEC. Dressing change to coccyx and L hip complete, pt tolerated well offering no complaints. verbal order to discontinue draper catheter - completed at 1700, due to void at 2300. Bladder scan qshift. Call dobson within reach, safety precautions in place, encouraged to call for assistance.
[2022-11-11] MEDS: Tamsulosin HCL 0.4 MG CAPSULE PO (21:00)
[2022-11-11] MEDS: Acetaminophen 325 MG TABLET 650 MG PO (21:05)
[2022-11-12] VITALS (7 sets, daily range): BP systolic 133–150; BP diastolic 67–80; PULSE 82–97; RESP 18–20; TEMP 36.4–37.1; O2SAT 92–97
[2022-11-12] MEDS: Heparin Sodium,Porcine 5,000 UNIT/ML VIAL 5000 UNIT SUBCUT ×2 (05:39→17:54)
[2022-11-12] MEDS: Zinc Oxide 20% Ointment 28.35 GM TUBE 1 APPL TOPICAL ×2 (07:54→19:31)
[2022-11-12] MEDS: Collagenase Clostridium Hist. 30 GM TUBE 1 APPL TOPICAL (07:54)
[2022-11-12] MEDS: Thiamine HCL 100 MG TABLET PO (07:55)
[2022-11-12] MEDS: Silver Sulfadiazine 1 % Cream 20 GM TUBE 1 APPL TOPICAL (07:55)
[2022-11-12] MEDS: Folic Acid 1 MG TABLET PO (07:55)
[2022-11-12] MEDS: Multivitamin TABLET 1 TAB PO (07:55)
--- NOTE | 2022-11-12 10:44 | P.PNIM_ITS ---
Subjective Subjective Date of Service: 11/12/22 Interval History: Being followed for placement offers no acute complaints, elbow and ankle pain and stiffness is better , no acute events overnight vitals remained stable tolerating diet, Aquino catheter removed required straight catheterization x1 and voided this morning, no fevers no chills, no urinary symptoms. Review of Systems Review of Systems: Yes all other systems are reviewed and are negative Physical Exam Vital Signs: Vital Signs: Last Vital Signs Temp 98.6 F 11/12/22 07:46 Pulse 97 11/12/22 10:22 Resp 20 11/12/22 07:46 BP 149/76 H 11/12/22 10:22 Pulse Ox 92 11/12/22 10:22 O2 Del Method 11/12/22 07:46 O2 Flow Rate 2 11/12/22 07:46 BMI result Body Mass Index 26.5 Const: Other: General awake aler t x3,in no acute d istress.? Neck no JVD. CVS? regular rate rhythm, Respi ratory lungs clear to auscultation, no respiratory dis tress, no wheeze, no rhonchi. Gastro intestinal abdomen soft, nontender, bowel sounds audib le,? no guarding , no rigidity. Extr emities left elbow normal examinatio n good range of mo tion no redness no warmth, left ankl e good range of mo tion Neuro nonfoca l ,speech clear. S kin no rash Objective Data Active Medications Acetaminophen (Acetaminophen 325 Mg Tablet) 650 mg PO Q6H PRN PRN Reason: Pain, Mild (Pain Scale 1-3) Last Admin: 11/11/22 21:05 Dose: 650 mg Documented By: ADIA Collagenase (Collagenase Clostridium Hist. 30 Gm Tube) 1 appl TOPICAL DAILY [facility]; Protocol Last Admin: 11/12/22 07:54 Dose: 1 appl Documented By: ALONZO Folic Acid (Folic Acid 1 Mg Tablet) 1 mg PO DAILY [facility] Last Admin: 11/12/22 07:55 Dose: 1 mg Documented By: ALONZO Heparin Sodium (Porcine) (Heparin Sodium,Porcine 5,000 Unit/Ml Vial) 5,000 unit SUBCUT Q12H [facility] Last Admin: 11/12/22 05:39 Dose: 5,000 unit Documented By: ADIA Multivitamins/Vitamin C (Multivitamin Tablet) 1 tab PO DAILY [facility] Last Admin: 11/12/22 07:55 Dose: 1 tab Documented By: ALONZO Pharmacy Consult (Consult Rx Perform Med Rec) 1 each MISCELLANE ONCE PRN PRN Reason: Consult order Pharmacy Consult (Consult Rx Etoh Phenob Im/Po) 1 each MISCELLANE ONCE PRN; Protocol PRN Reason: Consult order Silver Sulfadiazine (Silver Sulfadiazine 1 % Cream 20 Gm Tube) 1 appl TOPICAL DAILY [facility] Last Admin: 11/12/22 07:55 Dose: 1 appl Documented By: ALONZO Sodium Chloride (0.9 % Sodium Chloride Flush 3 Ml Syringe) 3 ml IVFLUSH QSHIFT [facility] Last Admin: 11/12/22 07:50 Dose: 3 ml Documented By: ALONZO Tamsulosin HCl (Tamsulosin Hcl 0.4 Mg Capsule) 0.4 mg PO BEDTIME [facility] Last Admin: 11/11/22 21:00 Dose: 0.4 mg Documented By: ADIA Thiamine HCl (Thiamine Hcl 100 Mg Tablet) 100 mg PO DAILY [facility] Last Admin: 11/12/22 07:55 Dose: 100 mg Documented By: ALONZO Zinc Oxide (Zinc Oxide 20% Ointment 28.35 Gm Tube) 1 appl TOPICAL BID [facility]; Protocol Last Admin: 11/12/22 07:54 Dose: 1 appl Documented By: ALONZO Labs 11/05/22 06:22 11/09/22 06:09 Assessment and Plan (1) Cognitive disorder: Status: Acute (2) Aspiration pneumonia: Status: Acute Plan 67-year-old man presented with failure to thrive and severe alcoholism, he drinks on a daily basis and was found his home extremely unkept Stage II pressure ulcer, left hip wound. present on admission continue silvadine daily for sacral wound and santyl for left hip wound culture - growing multiple organisms - superficial wound culture not clinically significant Continue frequent position change and high-protein diet Severe sepsis, related to cellulitis, COVID-19 and influenza A on admission on 11/03 spiked fever again and met sepsis criteria with fever, tachycardia, no leukocytosis lactic acid 2.2 resolved with IVF; bp low, improved with IVF/albumin blood cultures negative , ua negative wound on sacrum and left hip, not appear infected repeat CXR 1/12 showed persistent patchy opacity unchanged from before MRSA nares negative seen by ID , recommend zosyn/doxy IV finished 5 day course of antibiotic seen by speech, rec NDD2 diet- aspiration precautions Now with no recurrent fevers hemodynamically stable acute respiratory failure secondary to pneumonia Resolved room air 95% Left elbow and left ankle pain seems musculoskeletal, no evidence of acute infection, or gout recommend to do [id number] exercises and Tylenol for pain. urinary retention Aquino catheter discontinued on November 11 patient voided this morning continue to give voiding trials, continue Flomax COVID 19/influenza A tested + 10/18 no remdesivir or steroids as had no hypoxia at that time completed course of tamiflu, DC COVID precautions the Failure to thrive Likely secondary to alcohol use Physical therapy consultation- rec STR Continue high-protein diet seen by OT - scored 06/22 on MOCA - see full OT eval for details Hypertension Stable blood pressure, will DC lisinopril on hold for last several days Alcohol use disorder completed phenobarbital seen by recovery team , declined resources on referrals continue Folic acid, thiamine, multivitamin Hypernatremia resolved Hypokalemia resolved with replacement Elevated CPK Secondary to dehydration, fall CPK trending down to 394, normal renal function Transaminitis. Trending down, no abdominal pain, Secondary to alcohol abuse Elevated troponin. No delta No complaints of chest pain No ischemic changes on EKG Likely secondary to elevated CPK right renal lesion seen on CT - recommend outpatient CT with renal mass protocol vs MR with contrast for further characterization DVT prophylaxis with heparin Full code Dispo: PT rec STR. 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 Time Spent With Patient Time: Total time managing care of this patient today ____ minutes. Quality Stroke Does the patient have a stroke diagnosis?: No VTE Prior VTE?: No VTE Risk Level:: Medical - moderate - high VTE Device Contraindication: N/A - Device Ordered VTE Drug Contraindication: N/A - Med Ordered
--- NOTE | 2022-11-12 10:49 | MHC.CLN ---
F/U PO INTAKE 75-100% DIET RX: GROUND M/S -APPROPRIATE PT RECEIVING ENSURE TID PROVIDES 1050KCALS, 60G PROTEIN WITH 100% ACCEPTANCE CONTINUE TO MONITOR PO INTAKE AND ENCOURAGE SUPPLEMENT FOR WOUND HEALING RD TO FOLLOW WEEKLY
[2022-11-12] MEDS: Tamsulosin HCL 0.4 MG CAPSULE PO (19:24)
[2022-11-12] MEDS: Acetaminophen 325 MG TABLET 650 MG PO (19:28)
[2022-11-13 03:51] VITALS: BP 142/81; PULSE 86; RESP 18; TEMP 37.2; O2SAT 96
[2022-11-13] MEDS: Heparin Sodium,Porcine 5,000 UNIT/ML VIAL 5000 UNIT SUBCUT ×2 (05:22→18:33)
[2022-11-13 07:47] VITALS: BP 125/72; PULSE 85; RESP 18; TEMP 37.1; O2SAT 98
--- NOTE | 2022-11-13 08:17 | PC.NURSE ---
18G draper catheter inserted at 0800 per MD order for retention. Pt tolerated well. catheter draining clear yellow urine. Will continue to monitor
[2022-11-13] MEDS: Thiamine HCL 100 MG TABLET PO (09:58)
[2022-11-13] MEDS: Multivitamin TABLET 1 TAB PO (09:58)
[2022-11-13] MEDS: Folic Acid 1 MG TABLET PO (09:58)
[2022-11-13] MEDS: Collagenase Clostridium Hist. 30 GM TUBE 1 APPL TOPICAL (09:59)
[2022-11-13] MEDS: Silver Sulfadiazine 1 % Cream 20 GM TUBE 1 APPL TOPICAL ×2 (10:00→18:33)
[2022-11-13] MEDS: Zinc Oxide 20% Ointment 28.35 GM TUBE 1 APPL TOPICAL ×2 (10:00→21:29)
--- NOTE | 2022-11-13 10:17 | HO.PM.IMPN ---
Subjective Subjective Date of Service: 11/13/22 Interval History: Being followed for placement, patient required straight catheterization last night and again noted bladder scan of 650 this a.m., therefore will place Aquino back, tolerating diet, no nausea no vomiting no abdominal pain no other acute issues overnight. Review of Systems Review of Systems: Yes all other systems are reviewed and are negative Physical Exam Vital Signs: Vital Signs: Last Vital Signs Temp 98.8 F 11/13/22 07:47 Pulse 85 11/13/22 07:47 Resp 18 11/13/22 07:47 BP 125/72 11/13/22 07:47 Pulse Ox 98 11/13/22 07:47 O2 Del Method 11/13/22 07:47 O2 Flow Rate 2 11/13/22 07:47 BMI result Body Mass Index 26.5 Const: Other: General awake alert x3,in no acute distress.? Neck noJVD. CVS? regularrate rhythm, Respiratory lungs clear?to auscultation,no respiratory distress, no wheeze,no rhonchi. Gastrointestinal abdomen?soft, nontender,bowel sounds audible,? no guarding ,?no rigidity. Extremities left elbow?normal examination good range of motion no redness no?warmth, left ankle good range of motion Neuro nonfocal ,speech clear. Skin stage II pressure ulcer both buttocks, left hip wound healing well no drainage Objective Data Active Medications Acetaminophen (Acetaminophen 325 Mg Tablet) 650 mg PO Q6H PRN PRN Reason: Pain, Mild (Pain Scale 1-3) Last Admin: 11/12/22 19:28 Dose: 650 mg Documented By: FLORENCIO Collagenase (Collagenase Clostridium Hist. 30 Gm Tube) 1 appl TOPICAL DAILY [facility]; Protocol Last Admin: 11/13/22 09:59 Dose: 1 appl Documented By: JACE Folic Acid (Folic Acid 1 Mg Tablet) 1 mg PO DAILY [facility] Last Admin: 11/13/22 09:58 Dose: 1 mg Documented By: JACE Heparin Sodium (Porcine) (Heparin Sodium,Porcine 5,000 Unit/Ml Vial) 5,000 unit SUBCUT Q12H [facility] Last Admin: 11/13/22 05:22 Dose: 5,000 unit Documented By: FLORENCIO Multivitamins/Vitamin C (Multivitamin Tablet) 1 tab PO DAILY [facility] Last Admin: 11/13/22 09:58 Dose: 1 tab Documented By: JACE Pharmacy Consult (Consult Rx Perform Med Rec) 1 each MISCELLANE ONCE PRN PRN Reason: Consult order Pharmacy Consult (Consult Rx Etoh Phenob Im/Po) 1 each MISCELLANE ONCE PRN; Protocol PRN Reason: Consult order Silver Sulfadiazine (Silver Sulfadiazine 1 % Cream 20 Gm Tube) 1 appl TOPICAL DAILY [facility] Last Admin: 11/13/22 10:00 Dose: 1 appl Documented By: JACE Sodium Chloride (0.9 % Sodium Chloride Flush 3 Ml Syringe) 3 ml IVFLUSH QSHIFT [facility] Last Admin: 11/13/22 09:58 Dose: 3 ml Documented By: JACE Tamsulosin HCl (Tamsulosin Hcl 0.4 Mg Capsule) 0.4 mg PO BEDTIME [facility] Last Admin: 11/12/22 19:24 Dose: 0.4 mg Documented By: FLORENCIO Thiamine HCl (Thiamine Hcl 100 Mg Tablet) 100 mg PO DAILY [facility] Last Admin: 11/13/22 09:58 Dose: 100 mg Documented By: JACE Zinc Oxide (Zinc Oxide 20% Ointment 28.35 Gm Tube) 1 appl TOPICAL BID [facility]; Protocol Last Admin: 11/13/22 10:00 Dose: 1 appl Documented By: JACE Labs 11/05/22 06:22 11/09/22 06:09 Assessment and Plan (1) Cognitive disorder: Status: Acute (2) Aspiration pneumonia: Status: Acute Plan 67-year-old man presented with failure to thrive and severe alcoholism, he drinks on a daily basis and was found his home extremely unkept Stage II pressure ulcer, left hip wound. present on admission continue silvadine daily for sacral wound and santyl for left hip wound culture - growing multiple organisms - superficial wound culture not clinically significant Continue frequent position change and high-protein diet Severe sepsis, related to cellulitis, COVID-19 and influenza A on admission on 11/03 spiked fever again and met sepsis criteria with fever, tachycardia, lactic acidosis, no leukocytosis blood cultures negative , ua negative wound on sacrum and left hip, not appear infected repeat CXR 11/04 showed persistent patchy opacity unchanged from before MRSA nares negative seen by ID , recommend zosyn/doxy IV finished 5 day course of antibiotic seen by speech, rec NDD2 diet- aspiration precautions Now with no recurrent fevers hemodynamically stable acute respiratory failure secondary to pneumonia Resolved room air 95% Left elbow and left ankle pain seems musculoskeletal, no evidence of acute infection, or gout recommend to do [id number] exercises and Tylenol for pain. urinary retention Aquino catheter discontinued on November 11 patient only voided once small amount , required straight caths Q shift, therefore will place Aquino back recommend outpatient urology f/u, continue Flomax. COVID 19/influenza A tested + 10/18 no remdesivir or steroids as had no hypoxia at that time completed course of tamiflu, DC COVID precautions the Failure to thrive Likely secondary to alcohol use Physical therapy consultation- rec STR Continue high-protein diet seen by OT - scored 06/22 on MOCA - see full OT eval for details Hypertension Stable blood pressure, will DC lisinopril on hold for last several days Alcohol use disorder completed phenobarbital seen by recovery team , declined resources on referrals continue Folic acid, thiamine, multivitamin Hypernatremia resolved Hypokalemia resolved with replacement Elevated CPK Secondary to dehydration, fall CPK trending down to 394, normal renal function Transaminitis. Trending down, no abdominal pain, Secondary to alcohol abuse Elevated troponin. No delta No complaints of chest pain No ischemic changes on EKG Likely secondary to elevated CPK right renal lesion seen on CT - recommend outpatient CT with renal mass protocol vs MR with contrast for further characterization DVT prophylaxis with heparin Full code Dispo: PT rec STR. 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 Time Spent With Patient Time: Total time managing care of this patient today ____ minutes. Quality Stroke Does the patient have a stroke diagnosis?: No VTE Prior VTE?: No VTE Risk Level:: Medical - moderate - high VTE Device Contraindication: N/A - Device Ordered VTE Drug Contraindication: N/A - Med Ordered
[2022-11-13 11:31] VITALS: BP 130/78; PULSE 82; RESP 18; TEMP 36.9; O2SAT 99
[2022-11-13 15:23] VITALS: BP 137/88; PULSE 85; RESP 18; TEMP 36.7; O2SAT 98
[2022-11-13 19:20] VITALS: BP 167/77; PULSE 97; RESP 18; TEMP 36.7; O2SAT 96
[2022-11-13] MEDS: Tamsulosin HCL 0.4 MG CAPSULE PO (21:15)
[2022-11-13 23:26] VITALS: BP 139/79; PULSE 98; RESP 20; TEMP 36.8; O2SAT 96
[2022-11-14 03:06] VITALS: BP 123/65; PULSE 93; RESP 20; TEMP 36.7; O2SAT 94
[2022-11-14] MEDS: Heparin Sodium,Porcine 5,000 UNIT/ML VIAL 5000 UNIT SUBCUT ×2 (05:55→17:50)
[2022-11-14] MEDS: Acetaminophen 325 MG TABLET 650 MG PO (05:57)
[2022-11-14 07:30] VITALS: BP 127/78; PULSE 95; RESP 20; TEMP 36.9; O2SAT 97
[2022-11-14] MEDS: Multivitamin TABLET 1 TAB PO (08:55)
[2022-11-14] MEDS: Collagenase Clostridium Hist. 30 GM TUBE 1 APPL TOPICAL (08:55)
[2022-11-14] MEDS: Folic Acid 1 MG TABLET PO (08:55)
[2022-11-14] MEDS: Thiamine HCL 100 MG TABLET PO (08:55)
[2022-11-14] MEDS: Silver Sulfadiazine 1 % Cream 20 GM TUBE 1 APPL TOPICAL (08:56)
[2022-11-14] MEDS: Zinc Oxide 20% Ointment 28.35 GM TUBE 1 APPL TOPICAL (08:56)
--- NOTE | 2022-11-14 11:09 | HO.PM.IMPN ---
Subjective Subjective Date of Service: 11/14/22 Interval History: No acute issues overnight; required reinstitution of Aquino secondary to urinary retention Review of Systems Denies chest pain Denies shortness of breath Denies nausea vomiting diarrhea Denies fever chills Physical Exam Vital Signs: Vital Signs: Last Vital Signs Temp 98.4 F 11/14/22 07:30 Pulse 95 11/14/22 07:30 Resp 20 11/14/22 07:30 BP 127/78 11/14/22 07:30 Pulse Ox 97 11/14/22 07:30 O2 Del Method 11/14/22 07:30 O2 Flow Rate 2 11/14/22 07:30 BMI result Body Mass Index 26.5 Const: Other: No acute distress Resp: Other: Clear to auscultation bilaterally no rales rhonchi or wheezes Cardio: Other: No S4; positive S1-S2; no S3 murmurs rubs or gallops GI: Other: Soft nontender nondistended normoactive bowel sounds Extrem: Other: No edema bilaterally Objective Data Active Medications Acetaminophen (Acetaminophen 325 Mg Tablet) 650 mg PO Q6H PRN PRN Reason: Pain, Mild (Pain Scale 1-3) Last Admin: 11/14/22 05:57 Dose: 650 mg Documented By: VIRGILIO Collagenase (Collagenase Clostridium Hist. 30 Gm Tube) 1 appl TOPICAL DAILY [facility]; Protocol Last Admin: 11/14/22 08:55 Dose: 1 appl Documented By: JACE Folic Acid (Folic Acid 1 Mg Tablet) 1 mg PO DAILY [facility] Last Admin: 11/14/22 08:55 Dose: 1 mg Documented By: JACE Heparin Sodium (Porcine) (Heparin Sodium,Porcine 5,000 Unit/Ml Vial) 5,000 unit SUBCUT Q12H [facility] Last Admin: 11/14/22 05:55 Dose: 5,000 unit Documented By: VIRGILIO Multivitamins/Vitamin C (Multivitamin Tablet) 1 tab PO DAILY [facility] Last Admin: 11/14/22 08:55 Dose: 1 tab Documented By: JACE Pharmacy Consult (Consult Rx Perform Med Rec) 1 each MISCELLANE ONCE PRN PRN Reason: Consult order Pharmacy Consult (Consult Rx Etoh Phenob Im/Po) 1 each MISCELLANE ONCE PRN; Protocol PRN Reason: Consult order Silver Sulfadiazine (Silver Sulfadiazine 1 % Cream 20 Gm Tube) 1 appl TOPICAL DAILY [facility] Last Admin: 11/14/22 08:56 Dose: 1 appl Documented By: JACE Sodium Chloride (0.9 % Sodium Chloride Flush 3 Ml Syringe) 3 ml IVFLUSH QSHIFT [facility] Last Admin: 11/14/22 08:55 Dose: 3 ml Documented By: JACE Tamsulosin HCl (Tamsulosin Hcl 0.4 Mg Capsule) 0.4 mg PO BEDTIME [facility] Last Admin: 11/13/22 21:15 Dose: 0.4 mg Documented By: VIRGILIO Thiamine HCl (Thiamine Hcl 100 Mg Tablet) 100 mg PO DAILY [facility] Last Admin: 11/14/22 08:55 Dose: 100 mg Documented By: JACE Zinc Oxide (Zinc Oxide 20% Ointment 28.35 Gm Tube) 1 appl TOPICAL BID [facility]; Protocol Last Admin: 11/14/22 08:56 Dose: 1 appl Documented By: JACE Labs 11/05/22 06:22 11/09/22 06:09 Assessment and Plan (1) Cognitive disorder: Status: Acute (2) Aspiration pneumonia: Status: Acute Plan 67-year-old man presented with failure to thrive and severe alcoholism, he drinks on a daily basis and was found his home extremely unkept; awaiting safe placement 1.Stage II pressure ulce(left hip).... present on admission - silvadine daily for sacral wound and santyl for left hip -continue frequent position change and high-protein diet 2.Severe sepsis(related to cellulitis, COVID-19 and influenza A) -resolved 3.Acute respiratory failure secondary to pneumonia -Resolved room air 95% 4.Urinary retention -required multiple straight caths; indwelling inserted -restart Flomax -outpatient urology follow-up 5.Failure to thrive -Likely secondary to alcohol use -Physical therapy consultation- rec STR -Continue high-protein diet 6.Hypertension -acceptable control -adjust as indicated 7.Right renal lesion -seen on CT - recommend outpatient CT with renal mass protocol vs MR with contrast for further characterization Heparin Full code Dispo: PT rec STR. 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 Time Spent With Patient Time: Total time managing care of this patient today ____ minutes. Quality Stroke Does the patient have a stroke diagnosis?: No VTE Prior VTE?: No VTE Risk Level:: Medical - moderate - high VTE Device Contraindication: N/A - Device Ordered VTE Drug Contraindication: N/A - Med Ordered
[2022-11-14 11:12] VITALS: BP 138/80; PULSE 87; RESP 20; TEMP 36.7; O2SAT 97
[2022-11-14 16:00] VITALS: BP 130/75; PULSE 90; RESP 19; TEMP 36.9; O2SAT 97
[2022-11-14 20:00] VITALS: BP 121/68; PULSE 97; RESP 20; TEMP 36.9; O2SAT 92
[2022-11-14] MEDS: Tamsulosin HCL 0.4 MG CAPSULE PO (21:51)
[2022-11-15] VITALS (7 sets, daily range): BP systolic 114–150; BP diastolic 62–79; PULSE 81–102; RESP 16–20; TEMP 36.7–37.6; O2SAT 92–96
[2022-11-15] MEDS: Heparin Sodium,Porcine 5,000 UNIT/ML VIAL 5000 UNIT SUBCUT ×2 (05:49→17:40)
[2022-11-15] MEDS: Silver Sulfadiazine 1 % Cream 20 GM TUBE 1 APPL TOPICAL (09:23)
[2022-11-15] MEDS: Thiamine HCL 100 MG TABLET PO (09:23)
[2022-11-15] MEDS: Folic Acid 1 MG TABLET PO (09:23)
[2022-11-15] MEDS: Multivitamin TABLET 1 TAB PO (09:23)
[2022-11-15] MEDS: Zinc Oxide 20% Ointment 28.35 GM TUBE 1 APPL TOPICAL ×2 (09:25→19:25)
[2022-11-15] MEDS: Collagenase Clostridium Hist. 30 GM TUBE 1 APPL TOPICAL (09:32)
--- NOTE | 2022-11-15 13:23 | HO.PM.IMPN ---
Subjective Subjective Date of Service: 11/15/22 Interval History: No acute issues overnight; required reinstitution of Draper secondary to urinary retention Review of Systems Denies chest pain Denies shortness of breath Denies nausea vomiting diarrhea Denies fever chills Physical Exam Vital Signs: Vital Signs: Last Vital Signs Temp 98.1 F 11/15/22 11:02 Pulse 84 11/15/22 11:02 Resp 16 11/15/22 11:02 BP 134/64 11/15/22 11:02 Pulse Ox 93 11/15/22 11:02 O2 Del Method 11/15/22 11:02 O2 Flow Rate 2 11/15/22 11:02 BMI result Body Mass Index 26.5 Const: Other: No acute distress Resp: Other: Clear to auscultation bilaterally no rales rhonchi or wheezes Cardio: Other: No S4; positive S1-S2; no S3 murmurs rubs or gallops GI: Other: Soft nontender nondistended normoactive bowel sounds Extrem: Other: No edema bilaterally Objective Data Active Medications Acetaminophen (Acetaminophen 325 Mg Tablet) 650 mg PO Q6H PRN PRN Reason: Pain, Mild (Pain Scale 1-3) Last Admin: 11/14/22 05:57 Dose: 650 mg Documented By: VIRGILIO Collagenase (Collagenase Clostridium Hist. 30 Gm Tube) 1 appl TOPICAL DAILY [facility]; Protocol Last Admin: 11/15/22 09:32 Dose: 1 appl Documented By: SUSAN Folic Acid (Folic Acid 1 Mg Tablet) 1 mg PO DAILY [facility] Last Admin: 11/15/22 09:23 Dose: 1 mg Documented By: SUSAN Heparin Sodium (Porcine) (Heparin Sodium,Porcine 5,000 Unit/Ml Vial) 5,000 unit SUBCUT Q12H [facility] Last Admin: 11/15/22 05:49 Dose: 5,000 unit Documented By: ESTELLA Multivitamins/Vitamin C (Multivitamin Tablet) 1 tab PO DAILY [facility] Last Admin: 11/15/22 09:23 Dose: 1 tab Documented By: SUSAN Pharmacy Consult (Consult Rx Perform Med Rec) 1 each MISCELLANE ONCE PRN PRN Reason: Consult order Pharmacy Consult (Consult Rx Etoh Phenob Im/Po) 1 each MISCELLANE ONCE PRN; Protocol PRN Reason: Consult order Silver Sulfadiazine (Silver Sulfadiazine 1 % Cream 20 Gm Tube) 1 appl TOPICAL DAILY [facility] Last Admin: 11/15/22 09:23 Dose: 1 appl Documented By: SUSAN Sodium Chloride (0.9 % Sodium Chloride Flush 3 Ml Syringe) 3 ml IVFLUSH QSHIFT [facility] Last Admin: 11/15/22 09:23 Dose: 3 ml Documented By: SUSAN Tamsulosin HCl (Tamsulosin Hcl 0.4 Mg Capsule) 0.4 mg PO BEDTIME [facility] Last Admin: 11/14/22 21:51 Dose: 0.4 mg Documented By: ESTELLA Thiamine HCl (Thiamine Hcl 100 Mg Tablet) 100 mg PO DAILY [facility] Last Admin: 11/15/22 09:23 Dose: 100 mg Documented By: SUSAN Zinc Oxide (Zinc Oxide 20% Ointment 28.35 Gm Tube) 1 appl TOPICAL BID [facility]; Protocol Last Admin: 11/15/22 09:25 Dose: 1 appl Documented By: SUSAN Labs 11/05/22 06:22 11/09/22 06:09 Assessment and Plan (1) COVID-19 virus infection: Status: Acute (2) Aspiration pneumonia: Status: Acute Plan 67-year-old man presented with failure to thrive and severe alcoholism, he drinks on a daily basis and was found his home extremely unkept; awaiting safe placement 1.Stage II pressure ulce(left hip).... present on admission - silvadine daily for sacral wound and santyl for left hip -continue frequent position change and high-protein diet 2.Severe sepsis(related to cellulitis, COVID-19 and influenza A) -resolved 3.Acute respiratory failure secondary to pneumonia -Resolved room air 95% 4.Urinary retention -draper -restart Flomax -outpatient urology follow-up 5.Failure to thrive -Likely secondary to alcohol use -Physical therapy consultation- rec STR -Continue high-protein diet 6.Hypertension -acceptable control -adjust as indicated 7.Right renal lesion -seen on CT - recommend outpatient CT with renal mass protocol vs MR with contrast for further characterization Heparin Full code Dispo: PT rec STR. intake worker making arrangements for safe discharge Patient need continued inpatient stay since waiting for safe disposition unable to take care of himself at home due to significant weakness and inability to ambulate. Time Spent With Patient Time: Total time managing care of this patient today ____ minutes. Quality Stroke Does the patient have a stroke diagnosis?: No VTE Prior VTE?: No VTE Risk Level:: Medical - moderate - high VTE Device Contraindication: N/A - Device Ordered VTE Drug Contraindication: N/A - Med Ordered
[2022-11-15] MEDS: Tamsulosin HCL 0.4 MG CAPSULE PO (19:24)
[2022-11-16 03:03] VITALS: BP 121/70; PULSE 90; RESP 18; TEMP 37.2; O2SAT 95
[2022-11-16 04:02] VITALS: BP 111/64; PULSE 92; RESP 20; TEMP 37; O2SAT 96
[2022-11-16] MEDS: Heparin Sodium,Porcine 5,000 UNIT/ML VIAL 5000 UNIT SUBCUT ×2 (05:59→17:18)
[2022-11-16] MEDS: Zinc Oxide 20% Ointment 28.35 GM TUBE 1 APPL TOPICAL ×2 (06:00→20:08)
[2022-11-16 07:14] VITALS: BP 123/71; PULSE 92; RESP 20; TEMP 36.7; O2SAT 96
[2022-11-16] MEDS: Acetaminophen 325 MG TABLET 650 MG PO (08:55)
[2022-11-16] MEDS: Silver Sulfadiazine 1 % Cream 20 GM TUBE 1 APPL TOPICAL (08:56)
[2022-11-16] MEDS: Thiamine HCL 100 MG TABLET PO (08:56)
[2022-11-16] MEDS: Multivitamin TABLET 1 TAB PO (08:56)
[2022-11-16] MEDS: Folic Acid 1 MG TABLET PO (08:56)
[2022-11-16] MEDS: Collagenase Clostridium Hist. 30 GM TUBE 1 APPL TOPICAL (08:57)
--- NOTE | 2022-11-16 11:18 | P.PNIM_ITS ---
Subjective Subjective Date of Service: 11/16/22 Interval History: No acute issues overnight; no issues with Draper Review of Systems Denies chest pain Denies shortness of breath Denies nausea vomiting diarrhea Denies fever chills Physical Exam Vital Signs: Vital Signs: Last Vital Signs Temp 98.1 F 11/16/22 07:14 Pulse 92 11/16/22 07:14 Resp 20 11/16/22 07:14 BP 123/71 11/16/22 07:14 Pulse Ox 96 11/16/22 07:14 O2 Del Method 11/16/22 07:14 O2 Flow Rate 2 11/16/22 07:14 BMI result Body Mass Index 26.5 Const: Other: No acute distress Resp: Other: Clear to auscultation bilaterally no rales rhonchi or wheezes Cardio: Other: No S4; positive S1-S2; no S3 murmurs rubs or gallops GI: Other: Soft nontender nondistended normoactive bowel sounds Extrem: Other: No edema bilaterally Objective Data Active Medications Acetaminophen (Acetaminophen 325 Mg Tablet) 650 mg PO Q6H PRN PRN Reason: Pain, Mild (Pain Scale 1-3) Last Admin: 11/16/22 08:55 Dose: 650 mg Documented By: SUSAN Collagenase (Collagenase Clostridium Hist. 30 Gm Tube) 1 appl TOPICAL DAILY [facility]; Protocol Last Admin: 11/16/22 08:57 Dose: 1 appl Documented By: SUSAN Folic Acid (Folic Acid 1 Mg Tablet) 1 mg PO DAILY [facility] Last Admin: 11/16/22 08:56 Dose: 1 mg Documented By: SUSAN Heparin Sodium (Porcine) (Heparin Sodium,Porcine 5,000 Unit/Ml Vial) 5,000 unit SUBCUT Q12H [facility] Last Admin: 11/16/22 05:59 Dose: 5,000 unit Documented By: SUKUMAR Multivitamins/Vitamin C (Multivitamin Tablet) 1 tab PO DAILY [facility] Last Admin: 11/16/22 08:56 Dose: 1 tab Documented By: SUSAN Pharmacy Consult (Consult Rx Perform Med Rec) 1 each MISCELLANE ONCE PRN PRN Reason: Consult order Pharmacy Consult (Consult Rx Etoh Phenob Im/Po) 1 each MISCELLANE ONCE PRN; Protocol PRN Reason: Consult order Silver Sulfadiazine (Silver Sulfadiazine 1 % Cream 20 Gm Tube) 1 appl TOPICAL DAILY [facility] Last Admin: 11/16/22 08:56 Dose: 1 appl Documented By: SUSAN Sodium Chloride (0.9 % Sodium Chloride Flush 3 Ml Syringe) 3 ml IVFLUSH QSHIFT [facility] Last Admin: 11/16/22 08:56 Dose: 3 ml Documented By: SUSAN Tamsulosin HCl (Tamsulosin Hcl 0.4 Mg Capsule) 0.4 mg PO BEDTIME [facility] Last Admin: 11/15/22 19:24 Dose: 0.4 mg Documented By: FLORENCIO Thiamine HCl (Thiamine Hcl 100 Mg Tablet) 100 mg PO DAILY [facility] Last Admin: 11/16/22 08:56 Dose: 100 mg Documented By: SUSAN Zinc Oxide (Zinc Oxide 20% Ointment 28.35 Gm Tube) 1 appl TOPICAL BID [facility]; Protocol Last Admin: 11/16/22 06:00 Dose: 1 appl Documented By: LYSZ Labs 11/05/22 06:22 11/09/22 06:09 Assessment and Plan (1) Pressure ulcer: Status: Acute Plan 67-year-old man presented with failure to thrive and severe alcoholism, he drinks on a daily basis and was found his home extremely unkept; awaiting safe placement 1.Stage II pressure ulce(left hip).... present on admission - silvadine daily for sacral wound and santyl for left hip -continue frequent position change and high-protein diet 2.Severe sepsis(related to cellulitis, COVID-19 and influenza A) -resolved 3.Acute respiratory failure secondary to pneumonia -Resolved room air 95% 4.Urinary retention -draper; no acute issues -restart Flomax -outpatient urology follow-up 5.Failure to thrive -Likely secondary to alcohol use -Physical therapy consultation- rec STR -Continue high-protein diet 6.Hypertension -acceptable control -adjust as indicated 7.Right renal lesion -seen on CT - recommend outpatient CT with renal mass protocol vs MR with contrast for further characterization Heparin Full code Dispo: PT 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 Time Spent With Patient Time: Total time managing care of this patient today ____ minutes. Quality Stroke Does the patient have a stroke diagnosis?: No VTE Prior VTE?: No VTE Risk Level:: Medical - moderate - high VTE Device Contraindication: N/A - Device Ordered VTE Drug Contraindication: N/A - Med Ordered
[2022-11-16 11:54] VITALS: BP 112/75; PULSE 88; RESP 18; TEMP 36.8; O2SAT 90
--- NOTE | 2022-11-16 12:30 | MHC.CM.PN ---
CM spoke with Patient's Sister/HCP/Rosalie @ [phone] and updated her on the [place] sn[facility] search progress. Rosalie met with Financial today and she is working on obtaining requested documents for [facility]. CM will follow.
[2022-11-16 15:05] VITALS: BP 115/59; PULSE 92; RESP 20; TEMP 36.3; O2SAT 95
[2022-11-16 20:00] VITALS: BP 132/64; PULSE 84; RESP 20; TEMP 36.7; O2SAT 97
[2022-11-16] MEDS: Tamsulosin HCL 0.4 MG CAPSULE PO (20:06)
[2022-11-17] MEDS: Acetaminophen 325 MG TABLET 650 MG PO (00:52)
[2022-11-17 04:00] VITALS: BP 107/65; PULSE 83; RESP 20; TEMP 37.1; O2SAT 96
[2022-11-17] MEDS: Heparin Sodium,Porcine 5,000 UNIT/ML VIAL 5000 UNIT SUBCUT ×2 (05:02→17:35)
[2022-11-17 07:31] VITALS: BP 142/76; PULSE 81; RESP 20; TEMP 36.4; O2SAT 99
--- NOTE | 2022-11-17 08:00 | CA_ITS ---
Transthoracic Echocardiogram Patient (Last, First, Middle): Hari Page J Gender: Male Date of : 1955 Age: 67 Procedure Date: 11/17/2022 Procedure Type: Transthoracic Echocardiogram Location: [facility] [place] Height: 185.42 cm Weight: 91.17 kg BSA: 2.16 m2 Heart Rate: 89 bpm BP: 142 / 76 mmHg Duplicate Maker: SB Referring MD: Christian Ley DO Symptoms: LE edema Study Quality: Fair w contrast ECG Rhythm: Sinus Conclusions: - The left ventricular systolic function is normal. The visually estimated ejection fraction is between 60-65%. - No obvious valvular pathology seen on this study. Findings Procedure Information Contrast agent, definity, is being given per protocol without apparent complications. The quality of the study was technically difficult. Left Ventricle Normal left ventricular cavity size. There is normal left ventricular wall thickness. The left ventricular systolic function is normal. The visually estimated ejection fraction is between 60-65%. There is no evidence of regional wall motion abnormalities. Diastolic function is normal for age. Right Ventricle There is normal right ventricular systolic function. Possible mild increase in right ventricular size. Atria Both atria are normal in size. Aortic Valve The aortic valve was not well visualized. There is no aortic valve stenosis. There is no aortic valve regurgitation. Mitral Valve The mitral valve appears normal. There is no mitral valve regurgitation. There is no mitral valve stenosis. Pulmonic Valve The pulmonic valve was not well visualized. Tricuspid Valve There is no tricuspid valve regurgitation. Tricuspid regurgitation envelope is inadequate for calculation of right ventricular systolic pressure. Great Vessels The asc aorta is normal in size. Venous The inferior vena cava is normal in size and collapses greater than 50% with inspiration. Pericardium/Pleural There is no evidence of pericardial effusion. Prior Study Comparison No prior study available for comparison. Recommendations, Care & Conclusions No obvious valvular pathology seen on this study. Measurements 2D Linear Measurements IVSd: 0.94 0.6-0.9/0.6-1.0 cm LVIDd: 5.03 3.9-5.3/4.2-5.9 cm LVIDd Index: 2.33 2.4-3.2/2.2-3.1 cm/m2 LVIDs: 3.67 2.0-3.6 cm LVPWd: 0.67 0.7-1.1 cm LA Diam: 2.80 2.7-3.8/3.0-4.0 cm LAIDs Index: 1.30 1.5-2.3 cm/m2 LV Mass: 172.39 67-162/88-224 g LV Mass Index: 79.81 43-95/49-115 g/m2 LVOT Diam: 2.30 3.0+(-)1.3 cm 2D Systolic Function EF 4C: 71.20 >55% EF 2C: 72.40 >55% EF BiP: 73.00 >55% Mitral Valve MV Pk E: 0.50 MV PK A: 0.67 MV Decel Time: 224.00 E/A: 0.70 E'Lateral: 10.10 E'Medial: 8.70 E/E' Med: 5.70 E/E' Lat: 4.90 PHT: 66.00 MVA PHT: 3.33 Decel Elliott: 2.22 Aortic Valve AoV Pk Be: 1.20 AoV Pk Grad: 6.00 IRMA: 4.26 LVOT LVOT Pk Be: 1.21 LVOT Mn Be: 0.78 LVOT VTI: 0.20 LVOT Pk Grad: 6.00 LVOT Mn Grad: 3.00 LVOT Diam: 2.30 LVOT Area: 4.15 Diastolic Function MV Pk E: 0.50 MV Pk A: 0.67 E/A: 0.70 E'Medial: 8.70 E/E' Med: 5.70 E' Laterial: 10.10 E/E' Lat: 4.90 Right Ventricle TAPSE (mm): 20.90 TVS' Be: 15.30 Tricuspid Valve RA Press: 8.00 Great Vessels Aorta Sinus of Valsalva: 3.80 2.0-3.5 cm Ao Asc: 3.70 2.1-3.4 cm Updated in Other Vendor System with Status of Final Sotero White MD electronically signed on 11/18/2022 10:21:19 AM with status of Final
[2022-11-17 09:06] LABS: MANUAL DIFF FLAG NO
[2022-11-17 09:14] LABS: Basophils Absolute Auto 0.1 X10*3/uL (0.0-0.2); Basophils Percent Auto 0.6 % (0-2); Eosinophils Absolute Auto 0.6 X10*3/uL (0.0-0.4); Eosinophils Percent Auto 5.9 % (0-4); Hemoglobin 9.6 g/dl (14.0-18.0); Imm Gran Abs Auto 0.06 X10*3/uL (0.00-0.03); Imm Gran Pct Auto 0.6 % (0.0-0.4); Lymphocytes Absolute Auto 2.7 X10*3/uL (1.2-4.9); Lymphocytes Percent Auto 25.2 % (20-40); Mean Corpuscular HGB Conc 33.1 g/dl (31.0-36.0); Mean Corpuscular Hemoglobin 31.2 pg (27.0-33.0); Mean Corpuscular Volume 94.2 fL (80.0-98.0); Mean Platelet Volume 9.1 fL (9.4-12.4); Monocytes Absolute Auto 0.9 X10*3/uL (0.1-1.2); Monocytes Percent Auto 8.6 % (2-11); Neutrophils Absolute Auto 6.2 x10*3/uL (2.0-8.3); Neutrophils Percent Auto 59.1 % (45-73); Platelet Count 756 X10*3/uL (160-400); Red Blood Count 3.08 X10*6/uL (4.60-5.80); Red Cell Distribution Width 14.5 % (11.0-16.0); White Blood Count 10.5 X10*3/uL (4.8-10.8)
--- NOTE | 2022-11-17 09:22 | MHC.CM.PN ---
CM has broadened SNF search out to the [place] area;CM will follow.
[2022-11-17 09:32] LABS: Alanine Aminotransferase 12 U/L (0-40); Albumin Level 2.2 g/dL (3.5-5.0); Alkaline Phosphatase 98 U/L (39-117); Anion Gap 11 (12-20); Aspartate Amino Transferase 26 U/L (5-37); Bilirubin Total 0.5 mg/dL (0.0-1.0); Blood Urea Nitrogen 10 mg/dL (9-16); Calcium 8.8 mg/dL (8.4-10.2); Carbon Dioxide 31 mmol/L (22-29); Chloride 95 mmol/L (96-108); Estimated Glomerular Filt Rate > 60; Glucose Random 87 mg/dL (60-115); Sodium 132 mmol/L (135-145); Total Protein 5.6 g/dL (6.5-8.0)
[2022-11-17] MEDS: Multivitamin TABLET 1 TAB PO (09:53)
[2022-11-17] MEDS: Folic Acid 1 MG TABLET PO (09:53)
[2022-11-17] MEDS: Thiamine HCL 100 MG TABLET PO (09:53)
[2022-11-17] MEDS: Zinc Oxide 20% Ointment 28.35 GM TUBE 1 APPL TOPICAL ×2 (09:54→20:21)
[2022-11-17] MEDS: Silver Sulfadiazine 1 % Cream 20 GM TUBE 1 APPL TOPICAL (09:54)
[2022-11-17] MEDS: Collagenase Clostridium Hist. 30 GM TUBE 1 APPL TOPICAL ×2 (09:55)
[2022-11-17 11:17] VITALS: BP 124/60; PULSE 82; RESP 20; TEMP 36.6; O2SAT 98
[2022-11-17] MEDS: traMADoL HCL 50 MG TABLET PO (14:52)
[2022-11-17 15:36] VITALS: BP 142/69; PULSE 87; RESP 18; TEMP 36.8; O2SAT 99
--- NOTE | 2022-11-17 15:48 | P.PNIM_ITS ---
Subjective Subjective Date of Service: 11/17/22 Interval History: No acute issues overnight; no issues with Draper Review of Systems Denies chest pain Denies shortness of breath Denies nausea vomiting diarrhea Denies fever chills Physical Exam Vital Signs: Vital Signs: Last Vital Signs Temp 98.2 F 11/17/22 15:36 Pulse 87 11/17/22 15:36 Resp 18 11/17/22 15:36 BP 142/69 H 11/17/22 15:36 Pulse Ox 99 11/17/22 15:36 O2 Del Method 11/17/22 15:36 O2 Flow Rate 2 11/17/22 11:17 BMI result Body Mass Index 26.5 Const: Other: No acute distress Resp: Other: Clear to auscultation bilaterally no rales rhonchi or wheezes Cardio: Other: No S4; positive S1-S2; no S3 murmurs rubs or gallops GI: Other: Soft nontender nondistended normoactive bowel sounds Extrem: Other: Pitting edema bilaterally Objective Data Active Medications Acetaminophen (Acetaminophen 325 Mg Tablet) 650 mg PO Q6H PRN PRN Reason: Pain, Mild (Pain Scale 1-3) Last Admin: 11/17/22 00:52 Dose: 650 mg Documented By: LILIAN Collagenase (Collagenase Clostridium Hist. 30 Gm Tube) 1 appl TOPICAL DAILY [facility]; Protocol Last Admin: 11/17/22 09:55 Dose: 1 appl Documented By: VERONICA Folic Acid (Folic Acid 1 Mg Tablet) 1 mg PO DAILY [facility] Last Admin: 11/17/22 09:53 Dose: 1 mg Documented By: VERONICA Heparin Sodium (Porcine) (Heparin Sodium,Porcine 5,000 Unit/Ml Vial) 5,000 unit SUBCUT Q12H [facility] Last Admin: 11/17/22 05:02 Dose: 5,000 unit Documented By: VERONICA Multivitamins/Vitamin C (Multivitamin Tablet) 1 tab PO DAILY [facility] Last Admin: 11/17/22 09:53 Dose: 1 tab Documented By: VERONICA Pharmacy Consult (Consult Rx Perform Med Rec) 1 each MISCELLANE ONCE PRN PRN Reason: Consult order Pharmacy Consult (Consult Rx Etoh Phenob Im/Po) 1 each MISCELLANE ONCE PRN; Protocol PRN Reason: Consult order Silver Sulfadiazine (Silver Sulfadiazine 1 % Cream 20 Gm Tube) 1 appl TOPICAL DAILY [facility] Last Admin: 11/17/22 09:54 Dose: 1 appl Documented By: VERONICA Sodium Chloride (0.9 % Sodium Chloride Flush 3 Ml Syringe) 3 ml IVFLUSH QSHIFT [facility] Last Admin: 11/17/22 14:53 Dose: 3 ml Documented By: MARILYN Tamsulosin HCl (Tamsulosin Hcl 0.4 Mg Capsule) 0.4 mg PO BEDTIME [facility] Last Admin: 11/16/22 20:06 Dose: 0.4 mg Documented By: LILIAN Thiamine HCl (Thiamine Hcl 100 Mg Tablet) 100 mg PO DAILY [facility] Last Admin: 11/17/22 09:53 Dose: 100 mg Documented By: VERONICA Tramadol HCl (Tramadol Hcl 50 Mg Tablet) 50 mg PO Q4H PRN PRN Reason: Pain, Moderate (Pain Scale 4-6 Last Admin: 11/17/22 14:52 Dose: 50 mg Documented By: MARILYN Zinc Oxide (Zinc Oxide 20% Ointment 28.35 Gm Tube) 1 appl TOPICAL BID [facility]; Protocol Last Admin: 11/17/22 09:54 Dose: 1 appl Documented By: VERONICA Labs 11/17/22 08:47 11/17/22 08:47 Labs: Laboratory Results - last 24 hr 11/17/22 11/17/22 08:47 08:47 MCV 94.2 MCH 31.2 MCHC 33.1 RDW 14.5 Plt Count 756 H D MPV 9.1 L Immature Gran % (Auto) 0.6 H Neut % (Auto) 59.1 Lymph % (Auto) 25.2 [place] % (Auto) 8.6 Eos % (Auto) 5.9 H Baso % (Auto) 0.6 Lymph # (Auto) 2.7 [place] # (Auto) 0.9 Eos # (Auto) 0.6 H Baso # (Auto) 0.1 Abs Immat Gran (auto) 0.06 H Absolute Neuts (auto) 6.2 Absolute Nucleated RBC 0.000 Nucleated RBC % (auto) 0.0 Anion Gap 11 L Estim Creat Clear Calc 141.0 Estimated GFR > 60 Random Glucose 87 Calcium 8.8 D Total Bilirubin 0.5 AST 26 ALT 12 Alkaline Phosphatase 98 Total Protein 5.6 L Albumin 2.2 L Assessment and Plan (1) Pressure ulcer: Status: Acute (2) Edema: Status: Acute (3) Hypertension: Status: Acute Plan 67-year-old man presented with failure to thrive and severe alcoholism, he drinks on a daily basis and was found his home extremely unkept; awaiting safe placement 1.Stage II pressure ulce(left hip).... present on admission - silvadine daily for sacral wound and santyl for left hip -continue frequent position change and high-protein diet 2.Severe sepsis(related to cellulitis, COVID-19 and influenza A) -resolved 3.Acute respiratory failure secondary to pneumonia -Resolved room air 95% 4.Urinary retention -draper; no acute issues -restart Flomax -outpatient urology follow-up 5. 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 Time Spent With Patient Time: Total time managing care of this patient today ____ minutes. Quality Stroke Does the patient have a stroke diagnosis?: No VTE Prior VTE?: No VTE Risk Level:: Medical - moderate - high VTE Device Contraindication: N/A - Device Ordered VTE Drug Contraindication: N/A - Med Ordered
[2022-11-17 16:56] LABS: Glucose, Whole Blood 96 mg/dL (60-115)
[2022-11-17] MEDS: Albumin Human 25 % 100 ML IV ×2 (17:34→22:35)
[2022-11-17] MEDS: Furosemide 20 MG TABLET PO (17:34)
[2022-11-17] MEDS: iohexoL 350 MG/ML 100 ML INFUS..BTL IV (19:03)
[2022-11-17 19:41] VITALS: BP 130/76; PULSE 91; RESP 18; TEMP 37.3; O2SAT 97
[2022-11-17 20:00] LABS: Glucose, Whole Blood 102 mg/dL (60-115)
[2022-11-17] MEDS: Tamsulosin HCL 0.4 MG CAPSULE PO (20:21)
[2022-11-17 23:39] VITALS: BP 128/73; PULSE 90; RESP 18; TEMP 36.9; O2SAT 93
[2022-11-18 03:33] VITALS: BP 109/66; PULSE 96; RESP 20; TEMP 36.9; O2SAT 92
[2022-11-18] MEDS: Albumin Human 25 % 100 ML IV ×2 (03:55→10:30)
[2022-11-18] MEDS: Heparin Sodium,Porcine 5,000 UNIT/ML VIAL 5000 UNIT SUBCUT ×2 (06:19→16:27)
[2022-11-18 06:43] LABS: MANUAL DIFF FLAG NO
[2022-11-18 06:47] LABS: Basophils Absolute Auto 0.1 X10*3/uL (0.0-0.2); Basophils Percent Auto 0.8 % (0-2); Eosinophils Absolute Auto 0.6 X10*3/uL (0.0-0.4); Hematocrit 27.4 % (42.0-52.0); Hemoglobin 9.1 g/dl (14.0-18.0); Imm Gran Abs Auto 0.06 X10*3/uL (0.00-0.03); Imm Gran Pct Auto 0.6 % (0.0-0.4); Lymphocytes Absolute Auto 2.4 X10*3/uL (1.2-4.9); Lymphocytes Percent Auto 23.3 % (20-40); Mean Corpuscular HGB Conc 33.2 g/dl (31.0-36.0); Mean Corpuscular Hemoglobin 31.4 pg (27.0-33.0); Mean Corpuscular Volume 94.5 fL (80.0-98.0); Mean Platelet Volume 8.8 fL (9.4-12.4); Monocytes Absolute Auto 0.9 X10*3/uL (0.1-1.2); Monocytes Percent Auto 8.2 % (2-11); Neutrophils Absolute Auto 6.4 x10*3/uL (2.0-8.3); Neutrophils Percent Auto 61.1 % (45-73); Platelet Count 676 X10*3/uL (160-400); Red Cell Distribution Width 14.5 % (11.0-16.0); White Blood Count 10.4 X10*3/uL (4.8-10.8)
[2022-11-18 07:20] LABS: Alanine Aminotransferase 12 U/L (0-40); Albumin Level 2.9 g/dL (3.5-5.0); Alkaline Phosphatase 79 U/L (39-117); Anion Gap 12 (12-20); Aspartate Amino Transferase 26 U/L (5-37); Bilirubin Total 0.4 mg/dL (0.0-1.0); Blood Urea Nitrogen 9 mg/dL (9-16); Carbon Dioxide 27 mmol/L (22-29); Chloride 98 mmol/L (96-108); Estimated Glomerular Filt Rate > 60; Glucose Fasting 85 mg/dL (60-99); Potassium 4.4 mmol/L (3.3-5.1); Sodium 133 mmol/L (135-145); Total Protein 5.9 g/dL (6.5-8.0)
[2022-11-18 07:49] LABS: Glucose, Whole Blood 84 mg/dL (60-115)
[2022-11-18 08:00] VITALS: BP 91/65; PULSE 66; RESP 14; TEMP 36.6; O2SAT 90
[2022-11-18] MEDS: Folic Acid 1 MG TABLET PO (08:04)
[2022-11-18] MEDS: Multivitamin TABLET 1 TAB PO (08:04)
[2022-11-18] MEDS: Furosemide 20 MG TABLET PO ×2 (08:04→16:27)
[2022-11-18] MEDS: Thiamine HCL 100 MG TABLET PO (08:04)
[2022-11-18] MEDS: Acetaminophen 325 MG TABLET 650 MG PO (08:07)
[2022-11-18] MEDS: traMADoL HCL 50 MG TABLET PO (08:08)
[2022-11-18] MEDS: Silver Sulfadiazine 1 % Cream 20 GM TUBE 1 APPL TOPICAL (08:16)
[2022-11-18] MEDS: Zinc Oxide 20% Ointment 28.35 GM TUBE 1 APPL TOPICAL ×2 (08:16→20:20)
[2022-11-18] MEDS: Collagenase Clostridium Hist. 30 GM TUBE 1 APPL TOPICAL (08:17)
[2022-11-18 11:21] VITALS: BP 121/72; PULSE 82; RESP 18; TEMP 35.2; O2SAT 93
[2022-11-18 11:35] LABS: Glucose, Whole Blood 74 mg/dL (60-115)
--- NOTE | 2022-11-18 11:43 | P.PNIM_ITS ---
Subjective Subjective Date of Service: 11/18/22 Interval History: No acute issues overnight; no issues with Draper Review of Systems no specific complaint Physical Exam Vital Signs: Vital Signs: Last Vital Signs Temp 95.3 F L 11/18/22 11:21 Pulse 82 11/18/22 11:21 Resp 18 11/18/22 11:21 BP 121/72 11/18/22 11:21 Pulse Ox 93 11/18/22 11:21 O2 Del Method 11/18/22 11:21 O2 Flow Rate 18 11/18/22 08:00 FiO2 48 11/18/22 08:00 BMI result Body Mass Index 26.5 Const: Other: General: AO X 3, no acute distress Resp: CTA bilateral CVS: S1,S2,RRR GI: +BS, NT, no distention Skin: No rash MSK: swollen right knee Neuro: motor grossly intact Psych: appropriate affect Objective Data Active Medications Acetaminophen (Acetaminophen 325 Mg Tablet) 650 mg PO Q6H PRN PRN Reason: Pain, Mild (Pain Scale 1-3) Last Admin: 11/18/22 08:07 Dose: 650 mg Documented By: RAYSA Collagenase (Collagenase Clostridium Hist. 30 Gm Tube) 1 appl TOPICAL DAILY [facility]; Protocol Last Admin: 11/18/22 08:17 Dose: 1 appl Documented By: RAYSA Folic Acid (Folic Acid 1 Mg Tablet) 1 mg PO DAILY [facility] Last Admin: 11/18/22 08:04 Dose: 1 mg Documented By: RAYSA Furosemide (Furosemide 20 Mg Tablet) 20 mg PO BID@0900,1800 [facility]; Protocol Last Admin: 11/18/22 08:04 Dose: 20 mg Documented By: RAYSA Heparin Sodium (Porcine) (Heparin Sodium,Porcine 5,000 Unit/Ml Vial) 5,000 unit SUBCUT Q12H [facility] Last Admin: 11/18/22 06:19 Dose: 5,000 unit Documented By: SVITLANA Multivitamins/Vitamin C (Multivitamin Tablet) 1 tab PO DAILY [facility] Last Admin: 11/18/22 08:04 Dose: 1 tab Documented By: RAYSA Pharmacy Consult (Consult Rx Perform Med Rec) 1 each MISCELLANE ONCE PRN PRN Reason: Consult order Pharmacy Consult (Consult Rx Etoh Phenob Im/Po) 1 each MISCELLANE ONCE PRN; Protocol PRN Reason: Consult order Silver Sulfadiazine (Silver Sulfadiazine 1 % Cream 20 Gm Tube) 1 appl TOPICAL DAILY [facility] Last Admin: 11/18/22 08:16 Dose: 1 appl Documented By: RAYSA Sodium Chloride (0.9 % Sodium Chloride Flush 3 Ml Syringe) 3 ml IVFLUSH QSHIFT [facility] Last Admin: 11/18/22 08:05 Dose: 3 ml Documented By: RAYSA Tamsulosin HCl (Tamsulosin Hcl 0.4 Mg Capsule) 0.4 mg PO BEDTIME [facility] Last Admin: 11/17/22 20:21 Dose: 0.4 mg Documented By: SVITLNAA Thiamine HCl (Thiamine Hcl 100 Mg Tablet) 100 mg PO DAILY [facility] Last Admin: 11/18/22 08:04 Dose: 100 mg Documented By: RAYSA Tramadol HCl (Tramadol Hcl 50 Mg Tablet) 50 mg PO Q4H PRN PRN Reason: Pain, Moderate (Pain Scale 4-6 Last Admin: 11/18/22 08:08 Dose: 50 mg Documented By: RAYSA Zinc Oxide (Zinc Oxide 20% Ointment 28.35 Gm Tube) 1 appl TOPICAL BID [facility]; Protocol Last Admin: 11/18/22 08:16 Dose: 1 appl Documented By: RAYSA Labs 11/18/22 06:37 11/18/22 06:37 Labs: Laboratory Results - last 24 hr 11/17/22 11/17/22 11/18/22 16:52 19:57 06:37 MCV 94.5 MCH 31.4 MCHC 33.2 RDW 14.5 Plt Count 676 H MPV 8.8 L Immature Gran % (Auto) 0.6 H Neut % (Auto) 61.1 Lymph % (Auto) 23.3 [place] % (Auto) 8.2 Eos % (Auto) 6.0 H Baso % (Auto) 0.8 Lymph # (Auto) 2.4 [place] # (Auto) 0.9 Eos # (Auto) 0.6 H Baso # (Auto) 0.1 Abs Immat Gran (auto) 0.06 H Absolute Neuts (auto) 6.4 Absolute Nucleated RBC 0.000 Nucleated RBC % (auto) 0.0 Anion Gap Estim Creat Clear Calc Estimated GFR POC Glucose 96 102 Fasting Glucose Calcium Total Bilirubin AST ALT Alkaline Phosphatase Total Protein Albumin 11/18/22 11/18/22 11/18/22 06:37 07:35 11:30 MCV MCH MCHC RDW Plt Count MPV Immature Gran % (Auto) Neut % (Auto) Lymph % (Auto) [place] % (Auto) Eos % (Auto) Baso % (Auto) Lymph # (Auto) [place] # (Auto) Eos # (Auto) Baso # (Auto) Abs Immat Gran (auto) Absolute Neuts (auto) Absolute Nucleated RBC Nucleated RBC % (auto) Anion Gap 12 Estim Creat Clear Calc 146.0 Estimated GFR > 60 POC Glucose 84 74 Fasting Glucose 85 Calcium 9.0 Total Bilirubin 0.4 AST 26 ALT 12 Alkaline Phosphatase 79 Total Protein 5.9 L Albumin 2.9 L Assessment and Plan (1) Pressure ulcer: Status: Acute (2) Edema: Status: Acute (3) Hypertension: Status: Acute Plan 67-year-old man presented with failure to thrive and severe alcoholism, he drinks on a daily basis and was found his home extremely unkept; awaiting safe p lacement 1.Stage II pressure ulce(left hip).... present on admission - silvadine daily for sacral wound and santyl for left hip -continue frequent position change and high-protein diet 2.Severe sepsis(related to cellulitis, COVID-19 and influenza A) -resolved 3.Acute respiratory failure secondary to pneumonia -Resolved room air 95% 4.Urinary retention -draper; no acute issues -restart Flomax -outpatient urology follow-up 5. 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 Time Spent With Patient Time: Total time managing care of this patient today ____ minutes. Quality Stroke Does the patient have a stroke diagnosis?: No VTE Prior VTE?: No VTE Risk Level:: Medical - moderate - high VTE Device Contraindication: N/A - Device Ordered VTE Drug Contraindication: N/A - Med Ordered
--- NOTE | 2022-11-18 12:22 | MHC.CM.PN ---
DP; CM SPOKE WITH LIAISON AT [facility] REGARDING PT. SISTER/HCP RENATA MADE AWARE SHE WILL NEED TO BRING A COPY OF THE MH SHAREE AND BANK STATEMENTS TO THE CENTER FOR REVIEW FOR POSSIBLE ACCEPTANCE VIA PENDING. RENATA STATES SHE WILL GATHER DOCUMENTS AND BRING THEM TO [facility] 11/19
[2022-11-18 14:57] VITALS: BP 126/63; PULSE 82; RESP 17; TEMP 37.1; O2SAT 93
[2022-11-18 15:30] LABS: Glucose, Whole Blood 98 mg/dL (60-115)
[2022-11-18 19:13] VITALS: BP 134/68; PULSE 95; RESP 18; TEMP 37.4; O2SAT 93
[2022-11-18 19:33] LABS: Glucose, Whole Blood 116 mg/dL (60-115)
[2022-11-18] MEDS: Tamsulosin HCL 0.4 MG CAPSULE PO (20:18)
[2022-11-18 23:37] VITALS: BP 140/76; PULSE 94; RESP 20; TEMP 36.9; O2SAT 93
[2022-11-19] VITALS (8 sets, daily range): BP systolic 113–144; BP diastolic 56–78; PULSE 86–105; RESP 14–20; TEMP 36.4–37.4; O2SAT 92–93
--- NOTE | 2022-11-19 | ECG_ITS ---
Test Reason : cp Blood Pressure : / mmHG Vent. Rate : 102 BPM Atrial Rate : 102 BPM P-R Int : 136 ms QRS Dur : 082 ms QT Int : 370 ms P-R-T Axes : 006 134 122 degrees QTc Int : 482 ms Sinus tachycardia with Premature supraventricular complexes Low voltage QRS Lateral infarct (cited on or before 19-NOV-2022) Abnormal ECG When compared with ECG of 19-NOV-2022 14:59, WI interval has increased Referred By: Char Light Electronically Signed By:Jaron Mccarthy
[2022-11-19] MEDS: Heparin Sodium,Porcine 5,000 UNIT/ML VIAL 5000 UNIT SUBCUT ×2 (05:56→19:08)
[2022-11-19 06:27] LABS: MANUAL DIFF FLAG NO
[2022-11-19 06:37] LABS: Basophils Absolute Auto 0.1 X10*3/uL (0.0-0.2); Basophils Percent Auto 0.7 % (0-2); Eosinophils Absolute Auto 0.7 X10*3/uL (0.0-0.4); Eosinophils Percent Auto 6.3 % (0-4); Hematocrit 27.8 % (42.0-52.0); Hemoglobin 9.3 g/dl (14.0-18.0); Imm Gran Abs Auto 0.05 X10*3/uL (0.00-0.03); Imm Gran Pct Auto 0.5 % (0.0-0.4); Lymphocytes Absolute Auto 2.7 X10*3/uL (1.2-4.9); Lymphocytes Percent Auto 24.6 % (20-40); Mean Corpuscular HGB Conc 33.5 g/dl (31.0-36.0); Mean Corpuscular Volume 92.7 fL (80.0-98.0); Monocytes Absolute Auto 0.8 X10*3/uL (0.1-1.2); Monocytes Percent Auto 7.3 % (2-11); Neutrophils Absolute Auto 6.6 x10*3/uL (2.0-8.3); Neutrophils Percent Auto 60.6 % (45-73); Platelet Count 812 X10*3/uL (160-400); Red Cell Distribution Width 14.6 % (11.0-16.0); White Blood Count 10.9 X10*3/uL (4.8-10.8)
[2022-11-19 07:11] LABS: Alanine Aminotransferase 10 U/L (0-40); Albumin Level 2.8 g/dL (3.5-5.0); Alkaline Phosphatase 85 U/L (39-117); Anion Gap 13 (12-20); Aspartate Amino Transferase 21 U/L (5-37); Bilirubin Total 0.4 mg/dL (0.0-1.0); Blood Urea Nitrogen 8 mg/dL (9-16); Calcium 8.8 mg/dL (8.4-10.2); Carbon Dioxide 28 mmol/L (22-29); Chloride 97 mmol/L (96-108); Estimated Glomerular Filt Rate > 60; Glucose Fasting 101 mg/dL (60-99); Potassium 4.4 mmol/L (3.3-5.1); Sodium 134 mmol/L (135-145); Total Protein 5.7 g/dL (6.5-8.0)
[2022-11-19] MEDS: Folic Acid 1 MG TABLET PO (09:30)
[2022-11-19] MEDS: Multivitamin TABLET 1 TAB PO (09:30)
[2022-11-19] MEDS: Furosemide 20 MG TABLET PO ×2 (09:30→19:07)
[2022-11-19] MEDS: Thiamine HCL 100 MG TABLET PO (09:30)
[2022-11-19] MEDS: Zinc Oxide 20% Ointment 28.35 GM TUBE 1 APPL TOPICAL ×2 (10:50→20:26)
[2022-11-19] MEDS: Silver Sulfadiazine 1 % Cream 20 GM TUBE 1 APPL TOPICAL (10:51)
--- NOTE | 2022-11-19 13:04 | MHC.CLN ---
F/U PO INTAKE 75-100% DIET RX: GROUND M/S -APPROPRIATE PT RECEIVING ENSURE TID PROVIDES 1050KCALS, 60G PROTEIN WITH 100% ACCEPTANCE CONTINUE TO MONITOR PO INTAKE AND ENCOURAGE SUPPLEMENT FOR WOUND HEALING RD CONTINUES TO FOLLOW WEEKLY
--- NOTE | 2022-11-19 14:46 | P.CNPS_ITS ---
History of Present Illness Date of Service: 11/19/2022 Chief Complaint: Covid-19, influenza, failure to thrive Reason for Consult: Capacity Request Requesting physician: Char Light Sources of Information: patient interviewed and chart reviewed HPI Narrative: 67 yo male, in patient since 10/18/22 found at home with a failure to thrive and severe alcohol use disorder with resulting medical issues which are resolving including stage 2 pressure ulcer L hip, resolved sepsis, resolved pneumonia with ARF, resolved urinary retention, LLE edema, HTN, R Renal Lesion. Capacity eval requested. Pt seen at 1430. He is awake, alert, in bed, resting comfortably with no obvious distress. He reports today is Oct and Nino Crawford is the current president. He reports it is winter-spring. He reports we are not at [facility] but at [facility], in [place], [place]. It is a long story as to why we are here. Brother Augustine from [place] is here as well, some where, I cannot find him . Pt has no immediate recall or attention or calculation ability at this time. He is unable to recall as well. He is able to name and repeat, declines three step command, reading and writing, citing no time for this or patience . Please go, you waste my time. Pt denies medical issues, denies psychiatric or addiction issues, repeating, we are not in a hospital . He has no understanding of current medical issues, no appreciation for the treatment being given. Reasoning is absent and choice expressed is that he is not even in a medical setting. Discussed with his team who report he experiences waxing/waning. Time of day may be an issue Current presentation is that of lacking capacity at this time. Past Psychiatric History: denies h/o psych hosps. denies h/o SA. denies h/o SIB. denies h/o mental health care. Medical Evaluation Reviewed: Yes [facility] Medical History Fever of unknown origin Hypertension Surgical History History of lumbar laminectomy Family History: denies Social History: HS grad. 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 Substance History: alcohol Trauma History: This question was not addressed today. Diagnostics Vital Signs (24Hr): Vital Signs - 24 hr 11/18/22 14:57 11/18/22 19:13 11/18/22 23:37 Temperature 98.7 F 99.4 F 98.4 F Pulse Rate 82 95 94 Respiratory Rate 17 18 20 Blood Pressure 126/63 134/68 140/76 H Pulse Oximetry 93 93 93 Oxygen Delivery Method Nasal Cannula Nasal Cannula Room Air 11/19/22 04:00 11/19/22 07:39 11/19/22 09:24 Temperature 98.1 F 98.7 F Pulse Rate 91 93 93 Respiratory Rate 20 14 Blood Pressure 144/75 H 135/78 135/78 Pulse Oximetry 93 93 93 Oxygen Delivery Method Room Air Room Air 11/19/22 11:29 11/19/22 11:37 11/19/22 14:40 Temperature 97.5 F 98.4 F Pulse Rate 93 105 H 101 H Respiratory Rate 14 17 Blood Pressure 135/78 113/56 L 142/74 H Pulse Oximetry 93 92 93 Oxygen Delivery Method Room Air Room Air BMI result Body Mass Index 26.5 Labs 11/19/22 06:10 11/19/22 06:10 Labs: Laboratory Results - last 48 hr 11/17/22 11/17/22 11/18/22 16:52 19:57 06:37 WBC 10.4 RBC 2.90 L Hgb 9.1 L Hct 27.4 L MCV 94.5 MCH 31.4 MCHC 33.2 RDW 14.5 Plt Count 676 H MPV 8.8 L Immature Gran % (Auto) 0.6 H Neut % (Auto) 61.1 Lymph % (Auto) 23.3 [place] % (Auto) 8.2 Eos % (Auto) 6.0 H Baso % (Auto) 0.8 Lymph # (Auto) 2.4 [place] # (Auto) 0.9 Eos # (Auto) 0.6 H Baso # (Auto) 0.1 Abs Immat Gran (auto) 0.06 H Absolute Neuts (auto) 6.4 Absolute Nucleated RBC 0.000 Nucleated RBC % (auto) 0.0 Sodium Potassium Chloride Carbon Dioxide Anion Gap BUN Creatinine Estim Creat Clear Calc Estimated GFR POC Glucose 96 102 Fasting Glucose Calcium Total Bilirubin AST ALT Alkaline Phosphatase Total Protein Albumin 11/18/22 11/18/22 11/18/22 06:37 07:35 11:30 WBC RBC Hgb Hct MCV MCH MCHC RDW Plt Count MPV Immature Gran % (Auto) Neut % (Auto) Lymph % (Auto) [place] % (Auto) Eos % (Auto) Baso % (Auto) Lymph # (Auto) [place] # (Auto) Eos # (Auto) Baso # (Auto) Abs Immat Gran (auto) Absolute Neuts (auto) Absolute Nucleated RBC Nucleated RBC % (auto) Sodium 133 L Potassium 4.4 Chloride 98 Carbon Dioxide 27 Anion Gap 12 BUN 9 Creatinine 0.57 Estim Creat Clear Calc 146.0 Estimated GFR > 60 POC Glucose 84 74 Fasting Glucose 85 Calcium 9.0 Total Bilirubin 0.4 AST 26 ALT 12 Alkaline Phosphatase 79 Total Protein 5.9 L Albumin 2.9 L 11/18/22 11/18/22 11/19/22 15:26 19:25 06:10 WBC 10.9 H RBC 3.00 L Hgb 9.3 L Hct 27.8 L MCV 92.7 MCH 31.0 MCHC 33.5 RDW 14.6 Plt Count 812 H MPV 9.0 L Immature Gran % (Auto) 0.5 H Neut % (Auto) 60.6 Lymph % (Auto) 24.6 [place] % (Auto) 7.3 Eos % (Auto) 6.3 H Baso % (Auto) 0.7 Lymph # (Auto) 2.7 [place] # (Auto) 0.8 Eos # (Auto) 0.7 H Baso # (Auto) 0.1 Abs Immat Gran (auto) 0.05 H Absolute Neuts (auto) 6.6 Absolute Nucleated RBC 0.000 Nucleated RBC % (auto) 0.0 Sodium Potassium Chloride Carbon Dioxide Anion Gap BUN Creatinine Estim Creat Clear Calc Estimated GFR POC Glucose 98 116 H Fasting Glucose Calcium Total Bilirubin AST ALT Alkaline Phosphatase Total Protein Albumin 11/19/22 06:10 WBC RBC Hgb Hct MCV MCH MCHC RDW Plt Count MPV Immature Gran % (Auto) Neut % (Auto) Lymph % (Auto) [place] % (Auto) Eos % (Auto) Baso % (Auto) Lymph # (Auto) [place] # (Auto) Eos # (Auto) Baso # (Auto) Abs Immat Gran (auto) Absolute Neuts (auto) Absolute Nucleated RBC Nucleated RBC % (auto) Sodium 134 L Potassium 4.4 Chloride 97 Carbon Dioxide 28 Anion Gap 13 BUN 8 L Creatinine 0.65 Estim Creat Clear Calc 128.0 Estimated GFR > 60 POC Glucose Fasting Glucose 101 H Calcium 8.8 Total Bilirubin 0.4 AST 21 ALT 10 Alkaline Phosphatase 85 Total Protein 5.7 L Albumin 2.8 L Imaging Radiology Impressions: ITS Impressions Chest X-Ray 10/18/22 14:35 IMPRESSION: Prominent bronchovascular markings at left perihilar and left lower lung field, may represent subtle interstitial pneumonia/viral pneumonia versus reactive airway disease. Follow-up radiograph to resolution is recommended. Abdomen/Pelvis CT 10/18/22 14:40 IMPRESSION: Asymmetric subcutaneous fat stranding in the left gluteal soft tissues with overlying skin thickening suggestive of cellulitis. Please note that the scrotum and gluteal soft tissues are incompletely imaged. No subcutaneous emphysema within the field of view to suggest necrotizing fasciitis. Lower lobe bronchiectasis with bronchial wall thickening suggesting airways inflammation. Patchy centrilobular nodules in the left lung base suggesting airways infection. Age-indeterminate inferior wedge compression deformity of the L1 vertebral body with approximately 50% height loss. Hepatic steatosis. A 1 cm indeterminate, intermediate attenuation right renal lesion for which differential considerations could include a hyperdense renal cyst or a small renal mass. CT renal mass protocol or MR with contrast is recommended for further evaluation. 4 mm solid left lower lobe pulmonary nodule. Assuming patient has no history of malignancy, recommend follow-up per Fleischner Society recommendations. According to the UPDATED 2017 Fleischner Society recommendations, the advised followup imaging for solid nodules < 6 mm is: LOW RISK PATIENT: No routine follow up. HIGH RISK PATIENT: Optional CT at 12 months. Chest X-Ray 10/31/22 21:46 IMPRESSION: Mild medial right basilar opacity could represent atelectasis or pneumonia. Aspiration possible. Chest X-Ray 11/01/22 09:30 IMPRESSION: * Bronchial valerio are thickened. Query if there is any history of asthma or bronchitis. Infectious inflammation of the airways is possible in this patient with history of fever. * Curvilinear opacity in the medial right lower lung likely represents atelectasis. No overt pneumonia. Chest X-Ray 11/03/22 19:10 IMPRESSION: No acute intrathoracic disease. Head CT 11/03/22 19:16 IMPRESSION: No acute intracranial abnormality including hemorrhage, mass effect, hydrocephalus, or acute territorial edematous infarction. Chest X-Ray 11/04/22 16:30 IMPRESSION: Persistent patchy and linear opacity at the medial right lung base. This is similar to prior chest x-ray 10/18/2022. This is concerning for pneumonia given history of cough. Renal CT 11/17/22 19:21 IMPRESSION: * Right lower lobe consolidation and small right pleural effusion are new compared to 10/18/2022. Right lower lobe pneumonia is suspected. * Diffuse hepatic steatosis. * 0.8 cm hyperdense/proteinaceous cyst of the right kidney. No suspicious renal lesions. * There is an old concave compression fracture of the L1 inferior endplate. Venous Duplex 11/18/22 13:53 IMPRESSION: -No DVT demonstrated in the right lower extremity from hip to the upper calf. -If the patient's symptoms persist, followup ultrasound in 5 days 7 days might be of value to exclude proximal propagation from a non-visualized calf vein. -Fluid collection extending from the superiorly and measuring 3.7 x 7.6 x 10.9 cm. Mental Status Exam Mental Status Exam Patient Appearance: Fatigued Patient Orientation: Person Level of Consciousness: Awake and Alert Patient Behavior: Talkative, Resistive to Care, Avoidant, Distractible, Confused and Good Eye Contact Mood Description: Hostile Affect Description: Constricted Patient Cognition Impaired: Yes Ability to Follow Directions: Poor Speech Pattern: Perseverating, Spontaneous Speech, Soft-Spoken and Cofabulation Memory Description: Remote Impaired and Episodic Impaired Hallucinations: None Delusions: Not Present Thought Process: Disoriented, Illogical, Distracted, Slowed Thinking and Confusion Thought Content: positive for Circumstantial, positive for Perseveration, positive for Slowed Thinking, positive for Tangential, positive for Suicidal Ideation (denies) and positive for Homicidal Ideation (denies) Depressive Symptoms: Increased Irritability, Increased Fatigue, Thoughts of /Suicide (denies) and Loss of Energy Judgement: Poor Medications Medications Current Medications Acetaminophen (Acetaminophen 325 Mg Tablet) 650 mg PO Q6H PRN PRN Reason: Pain, Mild (Pain Scale 1-3) Last Admin: 11/18/22 08:07 Dose: 650 mg Collagenase (Collagenase Clostridium Hist. 30 Gm Tube) 1 appl TOPICAL DAILY [facility]; Protocol Last Admin: 11/19/22 10:51 Dose: Not Given Folic Acid (Folic Acid 1 Mg Tablet) 1 mg PO DAILY [facility] Last Admin: 11/19/22 09:30 Dose: 1 mg Furosemide (Furosemide 20 Mg Tablet) 20 mg PO BID@0900,1800 [facility]; Protocol Last Admin: 11/19/22 09:30 Dose: 20 mg Heparin Sodium (Porcine) (Heparin Sodium,Porcine 5,000 Unit/Ml Vial) 5,000 unit SUBCUT Q12H [facility] Last Admin: 11/19/22 05:56 Dose: 5,000 unit Multivitamins/Vitamin C (Multivitamin Tablet) 1 tab PO DAILY [facility] Last Admin: 11/19/22 09:30 Dose: 1 tab Pharmacy Consult (Consult Rx Perform Med Rec) 1 each MISCELLANE ONCE PRN PRN Reason: Consult order Pharmacy Consult (Consult Rx Etoh Phenob Im/Po) 1 each MISCELLANE ONCE PRN; Protocol PRN Reason: Consult order Silver Sulfadiazine (Silver Sulfadiazine 1 % Cream 20 Gm Tube) 1 appl TOPICAL DAILY [facility] Last Admin: 11/19/22 10:51 Dose: 1 appl Sodium Chloride (0.9 % Sodium Chloride Flush 3 Ml Syringe) 3 ml IVFLUSH QSHIFT [facility] Last Admin: 11/19/22 09:30 Dose: 3 ml Tamsulosin HCl (Tamsulosin Hcl 0.4 Mg Capsule) 0.4 mg PO BEDTIME [facility] Last Admin: 11/18/22 20:18 Dose: 0.4 mg Thiamine HCl (Thiamine Hcl 100 Mg Tablet) 100 mg PO DAILY [facility] Last Admin: 11/19/22 09:30 Dose: 100 mg Tramadol HCl (Tramadol Hcl 50 Mg Tablet) 50 mg PO Q4H PRN PRN Reason: Pain, Moderate (Pain Scale 4-6 Last Admin: 11/18/22 08:08 Dose: 50 mg Zinc Oxide (Zinc Oxide 20% Ointment 28.35 Gm Tube) 1 appl TOPICAL BID [facility]; Protocol Last Admin: 11/19/22 10:50 Dose: 1 appl Allergies Allergies Allergy/AdvReac Type Severity Reaction Status Date / Time No Known Allergies Allergy Verified 05/20/22 10:27 Assessment & Plan Assessment & Plan (1) Alcohol use disorder: Status: Acute Code(s): F19.90 - Other psychoactive substance use, unspecified, uncomplicated (2) Cognitive disorder: Status: Acute Code(s): F09 - Unspecified mental disorder due to known physiological condition Plan 67 yo male, admitted 10/18/22 with failure to thrive, alcohol use disorder and subsequent medical issues. Today, capacity is requested. Pt does not have capacity to make clear decisions at this time. He presents with confusion, disorientation and irritability. Medically issues continue to resolve and with anemia, slight hyponatremia present. B12 543, Folate 14.8. He presents with some improvement in orientation as compared to earlier eval, however, he is disoriented and not focused on having any medical issues, believing he is at [facility] [employer]. Please consider HCP activation. Please call if we may be of further assistance. Total time managing care of this patient today 45 minutes. Informed Consent: does not understand
--- NOTE | 2022-11-19 14:49 | ECG_ITS ---
Test Reason : tachycardia Blood Pressure : / mmHG Vent. Rate : 104 BPM Atrial Rate : 104 BPM P-R Int : 098 ms QRS Dur : 080 ms QT Int : 350 ms P-R-T Axes : 000 138 134 degrees QTc Int : 460 ms Suspect limb lead reversal, interpretation assumes no reversal Sinus tachycardia with short [place] with Premature supraventricular complexes Low voltage QRS Lateral infarct , age undetermined Abnormal ECG When compared with ECG of 18-OCT-2022 14:19, difficult to compare due to poor quality of prior EKG Referred By: Char Light Electronically Signed By:SERGIO GAN
[2022-11-19 15:36] LABS: Glucose, Whole Blood 91 mg/dL (60-115)
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
[2022-11-19] MEDS: Tamsulosin HCL 0.4 MG CAPSULE PO (20:26)
[2022-11-20 03:36] VITALS: BP 148/69; PULSE 84; RESP 20; TEMP 37.2; O2SAT 98
[2022-11-20] MEDS: Heparin Sodium,Porcine 5,000 UNIT/ML VIAL 5000 UNIT SUBCUT ×2 (05:50→17:03)
[2022-11-20 07:10] LABS: MANUAL DIFF FLAG NO
[2022-11-20 07:20] LABS: Basophils Absolute Auto 0.1 X10*3/uL (0.0-0.2); Basophils Percent Auto 0.8 % (0-2); Eosinophils Absolute Auto 0.6 X10*3/uL (0.0-0.4); Hematocrit 29.1 % (42.0-52.0); Hemoglobin 9.6 g/dl (14.0-18.0); Imm Gran Abs Auto 0.03 X10*3/uL (0.00-0.03); Imm Gran Pct Auto 0.3 % (0.0-0.4); Lymphocytes Absolute Auto 3.2 X10*3/uL (1.2-4.9); Lymphocytes Percent Auto 31.5 % (20-40); Mean Corpuscular Hemoglobin 30.7 pg (27.0-33.0); Mean Platelet Volume 8.8 fL (9.4-12.4); Monocytes Absolute Auto 0.8 X10*3/uL (0.1-1.2); Monocytes Percent Auto 8.2 % (2-11); Neutrophils Absolute Auto 5.4 x10*3/uL (2.0-8.3); Neutrophils Percent Auto 53.2 % (45-73); Platelet Count 825 X10*3/uL (160-400); Red Blood Count 3.13 X10*6/uL (4.60-5.80); Red Cell Distribution Width 14.8 % (11.0-16.0); White Blood Count 10.1 X10*3/uL (4.8-10.8)
[2022-11-20 07:32] LABS: Alanine Aminotransferase 10 U/L (0-40); Albumin Level 2.8 g/dL (3.5-5.0); Alkaline Phosphatase 92 U/L (39-117); Anion Gap 13 (12-20); Aspartate Amino Transferase 26 U/L (5-37); Bilirubin Total 0.5 mg/dL (0.0-1.0); Blood Urea Nitrogen 9 mg/dL (9-16); Calcium 9.2 mg/dL (8.4-10.2); Carbon Dioxide 29 mmol/L (22-29); Chloride 99 mmol/L (96-108); Creatinine Clr Calc Pharmacy 136.4; Estimated Glomerular Filt Rate > 60; Glucose Fasting 84 mg/dL (60-99); Glucose Random 84 mg/dL (60-115); Potassium 4.8 mmol/L (3.3-5.1); Sodium 136 mmol/L (135-145)
[2022-11-20 08:00] VITALS: BP 142/79; PULSE 80; RESP 20; TEMP 36.7; O2SAT 93
[2022-11-20] MEDS: Folic Acid 1 MG TABLET PO (08:16)
[2022-11-20] MEDS: Multivitamin TABLET 1 TAB PO (08:16)
[2022-11-20] MEDS: Thiamine HCL 100 MG TABLET PO (08:16)
[2022-11-20] MEDS: Furosemide 20 MG TABLET PO ×2 (08:16→17:03)
[2022-11-20] MEDS: Silver Sulfadiazine 1 % Cream 20 GM TUBE 1 APPL TOPICAL (08:17)
[2022-11-20] MEDS: Zinc Oxide 20% Ointment 28.35 GM TUBE 1 APPL TOPICAL ×2 (08:17→20:20)
[2022-11-20] MEDS: Acetaminophen 325 MG TABLET 650 MG PO (10:23)
[2022-11-20 11:57] VITALS: BP 118/71; PULSE 92; RESP 20; TEMP 37.1; O2SAT 92
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
[2022-11-20 14:47] VITALS: BP 123/66; PULSE 82; RESP 20; TEMP 36.8; O2SAT 93
[2022-11-20 19:21] VITALS: BP 122/60; PULSE 97; RESP 18; TEMP 36.6; O2SAT 93
[2022-11-20] MEDS: Tamsulosin HCL 0.4 MG CAPSULE PO (20:19)
[2022-11-20 23:09] VITALS: BP 134/69; PULSE 95; RESP 18; TEMP 36.9; O2SAT 92
[2022-11-21 03:53] VITALS: BP 128/74; PULSE 87; RESP 16; TEMP 36.9; O2SAT 92
[2022-11-21] MEDS: Heparin Sodium,Porcine 5,000 UNIT/ML VIAL 5000 UNIT SUBCUT ×2 (05:48→18:00)
[2022-11-21 07:15] VITALS: BP 132/77; PULSE 85; RESP 20; TEMP 37.2; O2SAT 95
[2022-11-21] MEDS: Zinc Oxide 20% Ointment 28.35 GM TUBE 1 APPL TOPICAL ×2 (10:43→20:15)
[2022-11-21] MEDS: Multivitamin TABLET 1 TAB PO (10:43)
[2022-11-21] MEDS: Folic Acid 1 MG TABLET PO (10:43)
[2022-11-21] MEDS: Thiamine HCL 100 MG TABLET PO (10:43)
[2022-11-21] MEDS: Furosemide 20 MG TABLET PO ×2 (10:44→18:00)
[2022-11-21] MEDS: Silver Sulfadiazine 1 % Cream 20 GM TUBE 1 APPL TOPICAL (10:44)
[2022-11-21 11:56] VITALS: BP 131/84; PULSE 88; RESP 20; TEMP 36.7; O2SAT 94
[2022-11-21] MEDS: Collagenase Clostridium Hist. 30 GM TUBE 1 APPL TOPICAL (12:49)
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
[2022-11-21 15:35] VITALS: BP 141/78; PULSE 78; RESP 18; TEMP 37.1; O2SAT 97
[2022-11-21 19:21] VITALS: BP 143/65; PULSE 91; RESP 19; TEMP 37.1; O2SAT 92
[2022-11-21] MEDS: Tamsulosin HCL 0.4 MG CAPSULE PO (20:11)
[2022-11-21 23:49] VITALS: BP 130/62; PULSE 84; RESP 15; TEMP 37.1; O2SAT 94
[2022-11-22] VITALS (7 sets, daily range): BP systolic 125–161; BP diastolic 74–83; PULSE 83–98; RESP 14–20; TEMP 36.6–37.6; O2SAT 91–94
[2022-11-22] MEDS: Heparin Sodium,Porcine 5,000 UNIT/ML VIAL 5000 UNIT SUBCUT ×2 (05:09→18:01)
[2022-11-22] MEDS: Furosemide 20 MG TABLET PO ×2 (09:27→18:01)
[2022-11-22] MEDS: Multivitamin TABLET 1 TAB PO (09:27)
[2022-11-22] MEDS: Thiamine HCL 100 MG TABLET PO (09:27)
[2022-11-22] MEDS: Folic Acid 1 MG TABLET PO (09:28)
[2022-11-22] MEDS: Silver Sulfadiazine 1 % Cream 20 GM TUBE 1 APPL TOPICAL (09:30)
[2022-11-22] MEDS: Collagenase Clostridium Hist. 30 GM TUBE 1 APPL TOPICAL (09:30)
[2022-11-22] MEDS: Zinc Oxide 20% Ointment 28.35 GM TUBE 1 APPL TOPICAL ×2 (09:30→20:40)
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
--- NOTE | 2022-11-22 16:03 | MHC.CM.PN ---
DP: CM SPOKE WITH SISTER/HCP RENATA WHO IS AWAITING THE MH TO BE COMPLETED BY [facility] AND WILL THEN BRING THAT COPY AND BANK STATEMENTS TO [facility] FOR REVIEW FOR POSSIBLE ACCEPTANCE UNDER MH PENDING. CM WILL CONTINUE TO FOLLOW.
[2022-11-22] MEDS: Tamsulosin HCL 0.4 MG CAPSULE PO (20:39)
[2022-11-23 03:16] VITALS: BP 159/90; PULSE 86; RESP 18; TEMP 36.8; O2SAT 93
[2022-11-23] MEDS: Heparin Sodium,Porcine 5,000 UNIT/ML VIAL 5000 UNIT SUBCUT ×2 (06:00→17:42)
[2022-11-23 07:15] VITALS: BP 137/78; PULSE 82; RESP 14; TEMP 36.6; O2SAT 95
[2022-11-23] MEDS: Folic Acid 1 MG TABLET PO (09:25)
[2022-11-23] MEDS: Thiamine HCL 100 MG TABLET PO (09:25)
[2022-11-23] MEDS: Multivitamin TABLET 1 TAB PO (09:25)
[2022-11-23] MEDS: Furosemide 20 MG TABLET PO ×2 (09:25→17:43)
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
[2022-11-23 11:16] VITALS: BP 119/71; PULSE 95; RESP 16; TEMP 36.7; O2SAT 94
[2022-11-23 14:52] VITALS: BP 138/74; PULSE 99; RESP 17; TEMP 36.8; O2SAT 93
[2022-11-23 19:08] VITALS: BP 141/72; PULSE 92; RESP 17; TEMP 37.1; O2SAT 92
[2022-11-23] MEDS: Tamsulosin HCL 0.4 MG CAPSULE PO (22:04)
[2022-11-23] MEDS: Zinc Oxide 20% Ointment 28.35 GM TUBE 1 APPL TOPICAL (22:05)
[2022-11-23 23:02] VITALS: BP 137/77; PULSE 86; RESP 18; TEMP 36.9; O2SAT 92
[2022-11-24] VITALS (7 sets, daily range): BP systolic 119–157; BP diastolic 60–78; PULSE 82–97; RESP 17–20; TEMP 36.4–37.4; O2SAT 92–98
[2022-11-24] MEDS: Heparin Sodium,Porcine 5,000 UNIT/ML VIAL 5000 UNIT SUBCUT ×2 (05:36→17:40)
[2022-11-24] MEDS: Folic Acid 1 MG TABLET PO (08:17)
[2022-11-24] MEDS: Furosemide 20 MG TABLET PO ×2 (08:17→17:40)
[2022-11-24] MEDS: Thiamine HCL 100 MG TABLET PO (08:17)
[2022-11-24] MEDS: Multivitamin TABLET 1 TAB PO (08:17)
[2022-11-24] MEDS: Collagenase Clostridium Hist. 30 GM TUBE 1 APPL TOPICAL (08:17)
[2022-11-24] MEDS: Zinc Oxide 20% Ointment 28.35 GM TUBE 1 APPL TOPICAL ×2 (08:17→20:33)
[2022-11-24] MEDS: Silver Sulfadiazine 1 % Cream 20 GM TUBE 1 APPL TOPICAL (08:17)
--- NOTE | 2022-11-24 08:44 | MHC.CM.PN ---
Broad SNF search referrals have been updated and CM will continue to follow.
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
--- NOTE | 2022-11-24 11:32 | PC.NURSE ---
report received from overnight RN, medical management trainer per DEC. pt offering no complaints. worked with PT this morning, sitting on side of bed. Pt states this made him tired but legs don't feel as stiff . [employer]ORY WORKER wants pt to get OOB today using the katie, pt informed of this plan but is requesting we wait until after lunch. Wound care preformed and dressing change complete, pt tolerated well. Safety precautions in place, call dobson within reach, encouraged to call for assistance.
--- NOTE | 2022-11-24 12:27 | MHC.CM.PN ---
[facility] [employer] will be faxing the [employer] application to [facility] at [phone] to determine if that SNF can accept Patient for LTC under [employer] pending status. CM will follow.
[2022-11-24] MEDS: Tamsulosin HCL 0.4 MG CAPSULE PO (20:32)
[2022-11-25 04:00] VITALS: BP 137/71; PULSE 80; RESP 20; TEMP 37; O2SAT 98
[2022-11-25] MEDS: Heparin Sodium,Porcine 5,000 UNIT/ML VIAL 5000 UNIT SUBCUT ×2 (06:08→17:21)
[2022-11-25 07:29] VITALS: BP 142/78; PULSE 82; RESP 20; TEMP 37.1; O2SAT 94
[2022-11-25] MEDS: Multivitamin TABLET 1 TAB PO (09:51)
[2022-11-25] MEDS: Thiamine HCL 100 MG TABLET PO (09:51)
[2022-11-25] MEDS: Zinc Oxide 20% Ointment 28.35 GM TUBE 1 APPL TOPICAL ×2 (09:51→20:06)
[2022-11-25] MEDS: Folic Acid 1 MG TABLET PO (09:51)
[2022-11-25] MEDS: Furosemide 20 MG TABLET PO ×2 (09:51→17:21)
[2022-11-25] MEDS: Collagenase Clostridium Hist. 30 GM TUBE 1 APPL TOPICAL (09:52)
[2022-11-25] MEDS: Silver Sulfadiazine 1 % Cream 20 GM TUBE 1 APPL TOPICAL (09:52)
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
[2022-11-25 12:00] VITALS: BP 118/73; PULSE 94; RESP 20; TEMP 36.8; O2SAT 95
[2022-11-25 15:20] VITALS: BP 156/84; PULSE 92; RESP 17; TEMP 36.7; O2SAT 92
[2022-11-25 18:54] VITALS: BP 125/74; PULSE 90; RESP 16; TEMP 36.6; O2SAT 94
[2022-11-25] MEDS: Tamsulosin HCL 0.4 MG CAPSULE PO (20:06)
[2022-11-26] VITALS (9 sets, daily range): BP systolic 126–145; BP diastolic 68–74; PULSE 77–92; RESP 17–20; TEMP 36.2–37.1; O2SAT 91–95
[2022-11-26] MEDS: Heparin Sodium,Porcine 5,000 UNIT/ML VIAL 5000 UNIT SUBCUT ×2 (05:26→16:54)
[2022-11-26] MEDS: Thiamine HCL 100 MG TABLET PO (07:30)
[2022-11-26] MEDS: Folic Acid 1 MG TABLET PO (07:30)
[2022-11-26] MEDS: Furosemide 20 MG TABLET PO ×2 (07:30→16:54)
[2022-11-26] MEDS: Multivitamin TABLET 1 TAB PO (07:31)
[2022-11-26] MEDS: Collagenase Clostridium Hist. 30 GM TUBE 1 APPL TOPICAL (07:31)
[2022-11-26] MEDS: Zinc Oxide 20% Ointment 28.35 GM TUBE 1 APPL TOPICAL (07:31)
[2022-11-26] MEDS: Silver Sulfadiazine 1 % Cream 20 GM TUBE 1 APPL TOPICAL (07:32)
--- NOTE | 2022-11-26 10:44 | MHC.CM.PN ---
Broad SNF search referrals have been updated and CM will continue to follow.
--- NOTE | 2022-11-26 13:01 | MHC.CLN ---
F/U PO INTAKE 75% DIET RX: GROUND M/S -APPROPRIATE PT RECEIVING ENSURE TID PROVIDES 1050KCALS, 60G PROTEIN WITH 100% ACCEPTANCE CONTINUE TO MONITOR PO INTAKE AND ENCOURAGE SUPPLEMENT FOR WOUND HEALING WOUNDS IMPROVING SLOWLY RD CONTINUES TO FOLLOW WEEKLY
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
[2022-11-26] MEDS: Tamsulosin HCL 0.4 MG CAPSULE PO (22:03)
[2022-11-27 03:02] VITALS: BP 121/76; PULSE 82; RESP 20; TEMP 36.8; O2SAT 92
[2022-11-27] MEDS: Heparin Sodium,Porcine 5,000 UNIT/ML VIAL 5000 UNIT SUBCUT ×2 (06:42→17:59)
[2022-11-27 07:00] LABS: Hematocrit 28.5 % (42.0-52.0); Hemoglobin 9.3 g/dl (14.0-18.0); Mean Corpuscular HGB Conc 32.6 g/dl (31.0-36.0); Mean Corpuscular Hemoglobin 30.9 pg (27.0-33.0); Mean Corpuscular Volume 94.7 fL (80.0-98.0); Mean Platelet Volume 9.3 fL (9.4-12.4); Platelet Count 876 X10*3/uL (160-400); Red Blood Count 3.01 X10*6/uL (4.60-5.80); Red Cell Distribution Width 14.9 % (11.0-16.0); White Blood Count 11.3 X10*3/uL (4.8-10.8)
[2022-11-27 07:06] LABS: Anion Gap 9 (12-20); Blood Urea Nitrogen 14 mg/dL (9-16); Calcium 9.2 mg/dL (8.4-10.2); Carbon Dioxide 31 mmol/L (22-29); Chloride 100 mmol/L (96-108); Estimated Glomerular Filt Rate > 60; Glucose Random 100 mg/dL (60-115); Potassium 3.9 mmol/L (3.3-5.1); Sodium 136 mmol/L (135-145)
[2022-11-27 07:13] VITALS: BP 136/76; PULSE 85; RESP 16; TEMP 37.2; O2SAT 95
[2022-11-27] MEDS: Folic Acid 1 MG TABLET PO (07:59)
[2022-11-27] MEDS: Multivitamin TABLET 1 TAB PO (07:59)
[2022-11-27] MEDS: Acetaminophen 325 MG TABLET 650 MG PO (07:59)
[2022-11-27] MEDS: Thiamine HCL 100 MG TABLET PO (07:59)
[2022-11-27] MEDS: Furosemide 20 MG TABLET PO ×2 (07:59→17:59)
[2022-11-27] MEDS: Collagenase Clostridium Hist. 30 GM TUBE 1 APPL TOPICAL (08:01)
[2022-11-27] MEDS: Zinc Oxide 20% Ointment 28.35 GM TUBE 1 APPL TOPICAL (08:01)
[2022-11-27] MEDS: Silver Sulfadiazine 1 % Cream 20 GM TUBE 1 APPL TOPICAL (08:01)
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
[2022-11-27 11:47] VITALS: BP 133/79; PULSE 86; RESP 20; TEMP 36.4; O2SAT 94
[2022-11-27 16:00] VITALS: BP 130/80; PULSE 86; RESP 20; TEMP 36.6; O2SAT 95
[2022-11-27 19:15] VITALS: BP 133/76; PULSE 92; RESP 18; TEMP 37.1; O2SAT 92
[2022-11-27] MEDS: Tamsulosin HCL 0.4 MG CAPSULE PO (20:25)
[2022-11-27 23:00] VITALS: BP 135/74; PULSE 89; RESP 20; TEMP 36.8; O2SAT 92
[2022-11-28 02:48] VITALS: BP 131/75; PULSE 107; RESP 20; TEMP 36.7; O2SAT 93
[2022-11-28] MEDS: Heparin Sodium,Porcine 5,000 UNIT/ML VIAL 5000 UNIT SUBCUT ×2 (05:51→18:38)
[2022-11-28 07:43] VITALS: BP 145/80; PULSE 86; RESP 18; TEMP 37.2; O2SAT 95
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
[2022-11-28] MEDS: Multivitamin TABLET 1 TAB PO (09:22)
[2022-11-28] MEDS: Furosemide 20 MG TABLET PO ×2 (09:22→18:38)
[2022-11-28] MEDS: Folic Acid 1 MG TABLET PO (09:22)
[2022-11-28] MEDS: Thiamine HCL 100 MG TABLET PO (09:22)
[2022-11-28] MEDS: Collagenase Clostridium Hist. 30 GM TUBE 1 APPL TOPICAL (09:23)
[2022-11-28] MEDS: Zinc Oxide 20% Ointment 28.35 GM TUBE 1 APPL TOPICAL ×2 (09:23→22:47)
[2022-11-28] MEDS: Silver Sulfadiazine 1 % Cream 20 GM TUBE 1 APPL TOPICAL (09:24)
[2022-11-28 12:00] VITALS: BP 135/78; PULSE 80; RESP 18; TEMP 36.9; O2SAT 97
[2022-11-28 15:44] VITALS: BP 128/70; PULSE 80; RESP 18; TEMP 37.1; O2SAT 97
[2022-11-28 19:18] VITALS: BP 132/71; PULSE 97; RESP 18; TEMP 36.3; O2SAT 91
[2022-11-28] MEDS: Tamsulosin HCL 0.4 MG CAPSULE PO (22:47)
[2022-11-28 23:38] VITALS: BP 145/86; PULSE 88; RESP 18; TEMP 37.1; O2SAT 95
[2022-11-29 03:59] VITALS: BP 153/83; PULSE 91; RESP 20; TEMP 37.2; O2SAT 92
[2022-11-29] MEDS: Heparin Sodium,Porcine 5,000 UNIT/ML VIAL 5000 UNIT SUBCUT ×2 (06:04→17:51)
[2022-11-29 07:51] VITALS: BP 127/77; PULSE 89; RESP 22; TEMP 36.5; O2SAT 91
[2022-11-29] MEDS: Furosemide 20 MG TABLET PO ×2 (07:58→17:51)
[2022-11-29] MEDS: Folic Acid 1 MG TABLET PO (07:58)
[2022-11-29] MEDS: Thiamine HCL 100 MG TABLET PO (07:58)
[2022-11-29] MEDS: Multivitamin TABLET 1 TAB PO (07:58)
[2022-11-29] MEDS: Silver Sulfadiazine 1 % Cream 20 GM TUBE 1 APPL TOPICAL (07:59)
[2022-11-29] MEDS: Collagenase Clostridium Hist. 30 GM TUBE 1 APPL TOPICAL (07:59)
[2022-11-29] MEDS: Zinc Oxide 20% Ointment 28.35 GM TUBE 1 APPL TOPICAL ×2 (08:00→20:55)
[2022-11-29] MEDS: Acetaminophen 325 MG TABLET 650 MG PO (08:04)
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
--- NOTE | 2022-11-29 09:39 | MHC.CM.PN ---
Broad SNF search referrals have been updated and CM will continue to follow.
[2022-11-29 12:00] VITALS: BP 126/78; PULSE 91; RESP 20; TEMP 36.7; O2SAT 94
[2022-11-29 15:33] VITALS: BP 139/72; PULSE 95; RESP 19; TEMP 36.9; O2SAT 93
[2022-11-29 20:00] VITALS: BP 130/75; PULSE 114; RESP 19; TEMP 36.9; O2SAT 99
[2022-11-29] MEDS: Tamsulosin HCL 0.4 MG CAPSULE PO (20:55)
[2022-11-29 23:42] VITALS: BP 151/81; PULSE 90; RESP 18; TEMP 37.2; O2SAT 96
[2022-11-30 03:36] VITALS: BP 142/64; PULSE 93; RESP 20; TEMP 37.2; O2SAT 93
[2022-11-30] MEDS: Heparin Sodium,Porcine 5,000 UNIT/ML VIAL 5000 UNIT SUBCUT ×2 (05:08→17:51)
[2022-11-30 07:46] VITALS: BP 146/83; PULSE 81; RESP 16; TEMP 36.8; O2SAT 95
[2022-11-30] MEDS: Folic Acid 1 MG TABLET PO (08:21)
[2022-11-30] MEDS: Thiamine HCL 100 MG TABLET PO (08:21)
[2022-11-30] MEDS: Furosemide 20 MG TABLET PO ×2 (08:21→17:51)
[2022-11-30] MEDS: Multivitamin TABLET 1 TAB PO (08:22)
[2022-11-30] MEDS: Collagenase Clostridium Hist. 30 GM TUBE 1 APPL TOPICAL (08:23)
[2022-11-30] MEDS: Silver Sulfadiazine 1 % Cream 20 GM TUBE 1 APPL TOPICAL (08:23)
[2022-11-30] MEDS: Zinc Oxide 20% Ointment 28.35 GM TUBE 1 APPL TOPICAL ×2 (08:23→22:18)
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
[2022-11-30 11:26] VITALS: BP 143/80; PULSE 92; RESP 16; TEMP 36.8; O2SAT 95
[2022-11-30 16:00] VITALS: BP 132/71; PULSE 98; RESP 19; TEMP 36.7; O2SAT 95
[2022-11-30 19:46] VITALS: BP 113/71; PULSE 93; RESP 16; TEMP 36.6; O2SAT 94
[2022-11-30] MEDS: Tamsulosin HCL 0.4 MG CAPSULE PO (22:18)
[2022-11-30 23:59] VITALS: BP 122/68; PULSE 82; RESP 14; TEMP 36.5; O2SAT 95
[2022-12-01 03:35] VITALS: BP 130/68; PULSE 84; RESP 15; TEMP 36.7; O2SAT 95
[2022-12-01] MEDS: Heparin Sodium,Porcine 5,000 UNIT/ML VIAL 5000 UNIT SUBCUT ×2 (05:18→17:53)
[2022-12-01 07:38] VITALS: BP 126/65; PULSE 87; RESP 20; TEMP 36.7; O2SAT 94
[2022-12-01] MEDS: Thiamine HCL 100 MG TABLET PO (09:13)
[2022-12-01] MEDS: Multivitamin TABLET 1 TAB PO (09:13)
[2022-12-01] MEDS: Furosemide 20 MG TABLET PO ×2 (09:13→17:53)
[2022-12-01] MEDS: Folic Acid 1 MG TABLET PO (09:13)
[2022-12-01] MEDS: Silver Sulfadiazine 1 % Cream 20 GM TUBE 1 APPL TOPICAL (09:17)
[2022-12-01] MEDS: Collagenase Clostridium Hist. 30 GM TUBE 1 APPL TOPICAL (09:17)
[2022-12-01] MEDS: Zinc Oxide 20% Ointment 28.35 GM TUBE 1 APPL TOPICAL ×2 (09:17→20:22)
--- NOTE | 2022-12-01 09:56 | P.CDIC_ITS ---
CDI Concurrent Query Documentation Clarification: PHYSICIAN'S DOCUMENTATION REQUEST Date of Query: 12/01/22 0957 Patient Name: Hari Page Admit Date: 10/18/22 Dear Doctor, A review of the medical record indicates additional documentation may be needed. Please review below and update the documentation accordingly. Clinical Indicators: The following diagnoses or signs and symptoms were noted in the patient record: Risk Factors/Clinical Indicators/Treatments Per MD progress note 11/30/22: neuro patient is alert x3, no focal deficits Assessment and plan of 11/30/22 states Cognitive disorder Based on the above, could you clarify in the Progress Notes the appropriate diagnosis, if significant, that supports the above abnormalities and additional evaluation, monitoring, and/or treatment rendered: * Based on the above, could you please provide an associated diagnosis * Other (please specify) * Unable to determine Use of terms such as suspected, likely, concern for, or probable (associated with a specific diagnosis that is being evaluated, monitored, or treated as if it exists) are acceptable and can be coded in the inpatient setting, when documented at the time of discharge. Thank you, Eula Barillas RN Extension: [phone] Please use your independent medical judgment in providing your response. THIS QUERY IS PART OF THE PERMANENT MEDICAL RECORD Other Diagnosis: unable to determine
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
[2022-12-01 11:52] VITALS: BP 120/76; PULSE 109; RESP 20; TEMP 36.7; O2SAT 94
[2022-12-01 15:13] VITALS: BP 125/70; PULSE 92; RESP 20; TEMP 36.8; O2SAT 95
--- NOTE | 2022-12-01 16:12 | MHC.CM.PN ---
A clinical update has been sent to facilities. Patient is ready to discharge. [facility]. No bed offers have been received. CM will continue to follow for placement.
[2022-12-01 19:26] VITALS: BP 117/69; PULSE 104; RESP 18; TEMP 37.1; O2SAT 93
[2022-12-01] MEDS: Tamsulosin HCL 0.4 MG CAPSULE PO (20:21)
[2022-12-02] VITALS (7 sets, daily range): BP systolic 120–148; BP diastolic 64–75; PULSE 78–90; RESP 14–20; TEMP 36.2–37.1; O2SAT 93–97
[2022-12-02] MEDS: Heparin Sodium,Porcine 5,000 UNIT/ML VIAL 5000 UNIT SUBCUT ×2 (05:11→18:08)
[2022-12-02] MEDS: Folic Acid 1 MG TABLET PO (09:14)
[2022-12-02] MEDS: Furosemide 20 MG TABLET PO ×2 (09:14→18:08)
[2022-12-02] MEDS: Thiamine HCL 100 MG TABLET PO (09:14)
[2022-12-02] MEDS: Multivitamin TABLET 1 TAB PO (09:14)
[2022-12-02] MEDS: Collagenase Clostridium Hist. 30 GM TUBE 1 APPL TOPICAL (11:15)
[2022-12-02] MEDS: Zinc Oxide 20% Ointment 28.35 GM TUBE 1 APPL TOPICAL ×2 (11:15→20:05)
[2022-12-02] MEDS: Silver Sulfadiazine 1 % Cream 20 GM TUBE 1 APPL TOPICAL (11:15)
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
[2022-12-02 15:32] LABS: Anion Gap 14 (12-20); Blood Urea Nitrogen 15 mg/dL (9-16); Carbon Dioxide 30 mmol/L (22-29); Chloride 99 mmol/L (96-108); Creatinine Clr Calc Pharmacy 110.9; Estimated Glomerular Filt Rate > 60; Glucose Random 110 mg/dL (60-115); Magnesium 1.8 mg/dL (1.6-2.6); Potassium 4.1 mmol/L (3.3-5.1); Sodium 139 mmol/L (135-145)
[2022-12-02] MEDS: Metoprolol Tartrate 12.5 MG HALFTAB PO ×2 (16:24→20:05)
[2022-12-02] MEDS: Tamsulosin HCL 0.4 MG CAPSULE PO (20:05)
[2022-12-03 04:00] VITALS: BP 133/73; PULSE 83; RESP 14; TEMP 36.5; O2SAT 94
[2022-12-03 07:29] VITALS: BP 147/87; PULSE 90; RESP 16; TEMP 36.4; O2SAT 95
[2022-12-03 09:06] LABS: Hematocrit 30.9 % (42.0-52.0); Hemoglobin 10.2 g/dl (14.0-18.0); Mean Corpuscular Hemoglobin 30.7 pg (27.0-33.0); Mean Corpuscular Volume 93.1 fL (80.0-98.0); Mean Platelet Volume 9.6 fL (9.4-12.4); Platelet Count 698 X10*3/uL (160-400); Red Blood Count 3.32 X10*6/uL (4.60-5.80); Red Cell Distribution Width 14.6 % (11.0-16.0); White Blood Count 11.9 X10*3/uL (4.8-10.8)
[2022-12-03] MEDS: Thiamine HCL 100 MG TABLET PO (09:07)
[2022-12-03] MEDS: Metoprolol Tartrate 12.5 MG HALFTAB PO ×2 (09:07→21:06)
[2022-12-03] MEDS: Folic Acid 1 MG TABLET PO (09:07)
[2022-12-03] MEDS: Multivitamin TABLET 1 TAB PO (09:07)
[2022-12-03] MEDS: Furosemide 20 MG TABLET PO ×2 (09:08→18:00)
[2022-12-03] MEDS: Zinc Oxide 20% Ointment 28.35 GM TUBE 1 APPL TOPICAL ×2 (09:09→21:06)
[2022-12-03] MEDS: Collagenase Clostridium Hist. 30 GM TUBE 1 APPL TOPICAL (09:10)
[2022-12-03] MEDS: Silver Sulfadiazine 1 % Cream 20 GM TUBE 1 APPL TOPICAL (09:10)
--- NOTE | 2022-12-03 10:36 | MHC.CM.PN ---
Broad SNF search referrals have been updated and CM will continue to follow.
[2022-12-03 11:42] VITALS: BP 147/87; PULSE 90; O2SAT 95
--- NOTE | 2022-12-03 11:47 | MHC.CLN ---
F/U PO INTAKE EXCELLENT 75-100% DIET RX: GROUND M/S -APPROPRIATE PT RECEIVING ENSURE TID PROVIDES 1050KCALS, 60G PROTEIN WITH 100% ACCEPTANCE CONTINUE TO MONITOR PO INTAKE AND ENCOURAGE SUPPLEMENT FOR WOUND HEALING WOUNDS CONTINUE TO IMPROVE SLOWLY RD CONTINUES TO FOLLOW WEEKLY
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
[2022-12-03 15:42] VITALS: BP 130/70; PULSE 94; RESP 16; TEMP 36.4; O2SAT 94
[2022-12-03] MEDS: Heparin Sodium,Porcine 5,000 UNIT/ML VIAL 5000 UNIT SUBCUT (18:00)
[2022-12-03 18:54] VITALS: BP 136/74; PULSE 93; RESP 15; TEMP 36.9; O2SAT 96
[2022-12-03] MEDS: Tamsulosin HCL 0.4 MG CAPSULE PO (21:06)
[2022-12-03 23:07] VITALS: BP 144/81; PULSE 81; RESP 18; TEMP 36.6; O2SAT 94
[2022-12-04 04:00] VITALS: BP 142/82; PULSE 105; RESP 20; TEMP 36.8; O2SAT 96
[2022-12-04] MEDS: Heparin Sodium,Porcine 5,000 UNIT/ML VIAL 5000 UNIT SUBCUT ×2 (05:43→19:18)
[2022-12-04 07:06] VITALS: BP 142/76; PULSE 87; RESP 20; TEMP 36.4; O2SAT 95
[2022-12-04] MEDS: Multivitamin TABLET 1 TAB PO (09:51)
[2022-12-04] MEDS: Folic Acid 1 MG TABLET PO (09:51)
[2022-12-04] MEDS: Metoprolol Tartrate 12.5 MG HALFTAB PO ×2 (09:51→16:28)
[2022-12-04] MEDS: Furosemide 20 MG TABLET PO ×2 (09:51→19:17)
[2022-12-04] MEDS: Thiamine HCL 100 MG TABLET PO (09:51)
[2022-12-04] MEDS: Zinc Oxide 20% Ointment 28.35 GM TUBE 1 APPL TOPICAL ×2 (09:52→20:09)
[2022-12-04] MEDS: Collagenase Clostridium Hist. 30 GM TUBE 1 APPL TOPICAL (09:52)
[2022-12-04] MEDS: Silver Sulfadiazine 1 % Cream 20 GM TUBE 1 APPL TOPICAL (09:53)
[2022-12-04 10:53] VITALS: BP 132/77; PULSE 87; RESP 20; TEMP 37.1; O2SAT 95
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
[2022-12-04 16:00] VITALS: BP 133/77; PULSE 94; RESP 18; TEMP 37; O2SAT 98
--- NOTE | 2022-12-04 16:30 | PC.NURSE ---
burst of PAT s for a few seconds HR 170's , medicated with additional dose of Metoprolol 12.5 mg po , dose increased to 25 mg BID
[2022-12-04 19:27] VITALS: BP 134/70; PULSE 90; RESP 18; TEMP 37; O2SAT 95
[2022-12-04] MEDS: Metoprolol Tartrate 25 MG TABLET PO (20:09)
[2022-12-04] MEDS: Tamsulosin HCL 0.4 MG CAPSULE PO (20:09)
[2022-12-04 23:10] VITALS: BP 136/75; PULSE 87; RESP 18; TEMP 37.5; O2SAT 93
[2022-12-05] VITALS (7 sets, daily range): BP systolic 125–146; BP diastolic 74–83; PULSE 80–95; RESP 18–20; TEMP 36.3–37.1; O2SAT 93–95
[2022-12-05] MEDS: Heparin Sodium,Porcine 5,000 UNIT/ML VIAL 5000 UNIT SUBCUT ×2 (05:43→18:28)
[2022-12-05] MEDS: Multivitamin TABLET 1 TAB PO (10:49)
[2022-12-05] MEDS: Furosemide 20 MG TABLET PO ×2 (10:49→18:28)
[2022-12-05] MEDS: Folic Acid 1 MG TABLET PO (10:49)
[2022-12-05] MEDS: Metoprolol Tartrate 25 MG TABLET PO ×2 (10:49→22:20)
[2022-12-05] MEDS: Zinc Oxide 20% Ointment 28.35 GM TUBE 1 APPL TOPICAL ×2 (10:50→22:20)
[2022-12-05] MEDS: Silver Sulfadiazine 1 % Cream 20 GM TUBE 1 APPL TOPICAL (10:50)
[2022-12-05] MEDS: Collagenase Clostridium Hist. 30 GM TUBE 1 APPL TOPICAL (10:50)
[2022-12-05] MEDS: Thiamine HCL 100 MG TABLET PO (10:50)
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
[2022-12-05] MEDS: Tamsulosin HCL 0.4 MG CAPSULE PO (22:20)
[2022-12-06] VITALS (7 sets, daily range): BP systolic 112–135; BP diastolic 66–77; PULSE 81–98; RESP 16–19; TEMP 36.7–37.2; O2SAT 92–98
[2022-12-06] MEDS: Heparin Sodium,Porcine 5,000 UNIT/ML VIAL 5000 UNIT SUBCUT ×2 (06:01→18:00)
--- NOTE | 2022-12-06 06:41 | PC.NURSE ---
Patient offers no complaints this shift. Aquino patent and draining. Turned and repositioned. safety maintained
[2022-12-06] MEDS: Furosemide 20 MG TABLET PO ×2 (09:52→18:00)
[2022-12-06] MEDS: Folic Acid 1 MG TABLET PO (09:52)
[2022-12-06] MEDS: Metoprolol Tartrate 25 MG TABLET PO ×2 (09:52→21:41)
[2022-12-06] MEDS: Thiamine HCL 100 MG TABLET PO (09:52)
[2022-12-06] MEDS: Multivitamin TABLET 1 TAB PO (09:52)
[2022-12-06] MEDS: Collagenase Clostridium Hist. 30 GM TUBE 1 APPL TOPICAL (09:53)
[2022-12-06] MEDS: Zinc Oxide 20% Ointment 28.35 GM TUBE 1 APPL TOPICAL ×2 (09:53→21:47)
--- NOTE | 2022-12-06 09:53 | MHC.CM.PN ---
[facility] SNF referrals have been updated and CM will continue to follow.
[2022-12-06] MEDS: Silver Sulfadiazine 1 % Cream 20 GM TUBE 1 APPL TOPICAL (09:54)
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
[2022-12-06] MEDS: Tamsulosin HCL 0.4 MG CAPSULE PO (21:41)
--- NOTE | 2022-12-07 02:26 | PC.NURSE ---
Pt had a 13 beat run of Vtach that went into SVT up to 200. Pt was symptomatic with nausea and the feeling of his heart racing . This RN let Dr. Lux know who said to give him his scheduled metoprolol.
[2022-12-07 04:00] VITALS: BP 116/75; PULSE 91; RESP 18; TEMP 37.1; O2SAT 93
[2022-12-07] MEDS: Heparin Sodium,Porcine 5,000 UNIT/ML VIAL 5000 UNIT SUBCUT ×2 (06:13→18:46)
[2022-12-07 07:51] VITALS: BP 139/81; PULSE 86; RESP 16; TEMP 36.5; O2SAT 93
[2022-12-07] MEDS: Metoprolol Tartrate 25 MG TABLET PO ×2 (08:29→19:51)
[2022-12-07] MEDS: Furosemide 20 MG TABLET PO ×2 (08:29→18:44)
[2022-12-07] MEDS: Folic Acid 1 MG TABLET PO (08:29)
[2022-12-07] MEDS: Thiamine HCL 100 MG TABLET PO (08:29)
[2022-12-07] MEDS: Multivitamin TABLET 1 TAB PO (08:29)
[2022-12-07] MEDS: Silver Sulfadiazine 1 % Cream 20 GM TUBE 1 APPL TOPICAL (08:31)
[2022-12-07] MEDS: Collagenase Clostridium Hist. 30 GM TUBE 1 APPL TOPICAL (08:31)
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
[2022-12-07 12:00] VITALS: BP 132/72; PULSE 97; RESP 16; TEMP 36.6; O2SAT 94
[2022-12-07] MEDS: Zinc Oxide 20% Ointment 28.35 GM TUBE 1 APPL TOPICAL ×2 (12:29→19:52)
[2022-12-07 15:14] VITALS: BP 122/70; PULSE 101; RESP 17; TEMP 37.1; O2SAT 92
--- NOTE | 2022-12-07 18:30 | PC.NURSE ---
Pt alert and oriented x4 but with perids of confusion and forgetfulness. Aquino Cath removed today at 1500 for a void trial with very minimal output. Due to void by 2100.
[2022-12-07 19:46] VITALS: BP 128/82; PULSE 91; RESP 17; TEMP 36.6; O2SAT 93
[2022-12-07] MEDS: Tamsulosin HCL 0.4 MG CAPSULE PO (19:51)
[2022-12-08] VITALS: BP 116/71; PULSE 90; RESP 14; TEMP 36.4; O2SAT 94
[2022-12-08 04:00] VITALS: BP 123/73; PULSE 88; RESP 14; TEMP 37.2; O2SAT 94
[2022-12-08] MEDS: Heparin Sodium,Porcine 5,000 UNIT/ML VIAL 5000 UNIT SUBCUT ×2 (06:12→18:33)
[2022-12-08 07:30] VITALS: BP 132/71; PULSE 88; RESP 14; TEMP 36.7; O2SAT 94
[2022-12-08] MEDS: Thiamine HCL 100 MG TABLET PO (08:32)
[2022-12-08] MEDS: Multivitamin TABLET 1 TAB PO (08:32)
[2022-12-08] MEDS: Metoprolol Tartrate 25 MG TABLET PO (08:32)
[2022-12-08] MEDS: Folic Acid 1 MG TABLET PO (08:32)
[2022-12-08] MEDS: Furosemide 20 MG TABLET PO ×2 (08:32→18:33)
[2022-12-08] MEDS: Collagenase Clostridium Hist. 30 GM TUBE 1 APPL TOPICAL (08:37)
[2022-12-08] MEDS: Zinc Oxide 20% Ointment 28.35 GM TUBE 1 APPL TOPICAL ×2 (08:37→20:48)
[2022-12-08] MEDS: Silver Sulfadiazine 1 % Cream 20 GM TUBE 1 APPL TOPICAL (08:37)
--- NOTE | 2022-12-08 09:32 | MHC.CM.PN ---
[facility] SNF search referrals are updated daily; CM will follow.
[2022-12-08 11:46] VITALS: BP 112/71; PULSE 92; RESP 17; TEMP 36.9; O2SAT 93
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
[2022-12-08 15:25] VITALS: BP 110/75; PULSE 89; RESP 17; TEMP 36.7; O2SAT 95
--- NOTE | 2022-12-08 15:34 | PC.NURSE ---
per report this morning pt put out 425 when straight cath around midnight after chronic draper was pulled. pt has not had output in urinal. I try but nothing comes out . pt was bladder scanned around 14:58, scanner initially showed 599ml, then scanned again and showed 518. notified - draper to be placed. 1000ml output upon insertion following sterile technic (clear yellow with some floating particles). pt tolerated draper (16 greek) insertion well- will continue to monitor.
--- NOTE | 2022-12-08 16:17 | P.CONCA_ITS ---
History of Present Illness History of Present Illness Date of Service: 12/08/22 Requesting physician: Natanael Horowitz Chief complaint: SVT Narrative: Pleasant 67 gentleman with prolonged hospitalization we have been asked to comment about supraventricular tachycardia. He has background history of alcoholism. He has been noticed to have runs of supraventricular tachycardia. On telemetry review there are frequent premature ventricular complexes followed by a runs of narrow complex tachycardia which appears to be SVT. At times he also had nonsustained VT followed by runs of supraventricular tachycardia. He is denying any significant palpitation except 2 nights ago when he had some palpitations. He had runs of SVT today but did not feel any symptoms. He is currently asymptomatic. Denying any chest discomfort shortness of breath. [facility] Past Medical History Medical History Fever of unknown origin Hypertension Family History Family History Father No problems noted. Mother Lung cancer Family/Other Lung cancer Throat cancer Family history: reviewed and not pertinent Surgical History Surgical History History of lumbar laminectomy Social History Social History Household Members: None Housing: Apartment Unable to assess alcohol history related to: Unable to respond Alcohol intake: current Alcohol intake frequency: 3 or more drinks per day Alcohol type: beer Patient Tobacco Use Status: Current everyday Tobacco user Tobacco use type: Cigarette Cigarette Packs Per Day: 1 Cigarettes Per Day: 20 Smoked in Last 30 Days: Yes e-Cigarette/Vaping Use: Never Used Patient Interested in Nicotine Replacement: No Patient Given Instructions on How to Stop Smoking: No Second Hand Smoke Exposure: Yes Use of substances other than those prescribed or required for medical reasons: Unable to respond Currently Displaying Signs/Symptoms of Drug Intoxication Withdrawal: No Have you been hit, kicked, punched, or otherwise hurt by someone within the past year? 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 30 Gm Tube) 1 appl TOPICAL DAILY [facility]; Protocol Last Admin: 12/08/22 08:37 Dose: 1 appl Folic Acid (Folic Acid 1 Mg Tablet) 1 mg PO DAILY [facility] Last Admin: 12/08/22 08:32 Dose: 1 mg Furosemide (Furosemide 20 Mg Tablet) 20 mg PO BID@0900,1800 [facility]; Protocol Last Admin: 12/08/22 08:32 Dose: 20 mg Heparin Sodium (Porcine) (Heparin Sodium,Porcine 5,000 Unit/Ml Vial) 5,000 unit SUBCUT Q12H [facility] Last Admin: 12/08/22 06:12 Dose: 5,000 unit Metoprolol Tartrate (Metoprolol Tartrate 25 Mg Tablet) 25 mg PO BID [facility]; Protocol Last Admin: 12/08/22 08:32 Dose: 25 mg Multivitamins/Vitamin C (Multivitamin Tablet) 1 tab PO DAILY [facility] Last Admin: 12/08/22 08:32 Dose: 1 tab Pharmacy Consult (Consult Rx Perform Med Rec) 1 each MISCELLANE ONCE PRN PRN Reason: Consult order Pharmacy Consult (Consult Rx Etoh Phenob Im/Po) 1 each MISCELLANE ONCE PRN; Protocol PRN Reason: Consult order Silver Sulfadiazine (Silver Sulfadiazine 1 % Cream 20 Gm Tube) 1 appl TOPICAL DAILY [facility] Last Admin: 12/08/22 08:37 Dose: 1 appl Sodium Chloride (0.9 % Sodium Chloride Flush 3 Ml Syringe) 3 ml IVFLUSH QSHIFT [facility] Last Admin: 12/08/22 08:32 Dose: 3 ml Tamsulosin HCl (Tamsulosin Hcl 0.4 Mg Capsule) 0.4 mg PO BEDTIME [facility] Last Admin: 12/07/22 19:51 Dose: 0.4 mg Thiamine HCl (Thiamine Hcl 100 Mg Tablet) 100 mg PO DAILY [facility] Last Admin: 12/08/22 08:32 Dose: 100 mg Zinc Oxide (Zinc Oxide 20% Ointment 28.35 Gm Tube) 1 appl TOPICAL BID [facility]; Protocol Last Admin: 12/08/22 08:37 Dose: 1 appl Physical Exam Vital Signs: Vital Signs: Last Vital Signs Temp 98.0 F 12/08/22 15:25 Pulse 89 12/08/22 15:25 Resp 17 12/08/22 15:25 BP 110/75 12/08/22 15:25 Pulse Ox 95 12/08/22 15:25 O2 Del Method 12/08/22 15:25 O2 Flow Rate 18 11/18/22 08:00 FiO2 48 11/18/22 08:00 BMI result Body Mass Index 26.5 GENERAL APPEARANCE: in no acute distress, pleasant. NECK: no carotid bruit, no jugular venous distention. SKIN: no suspicious lesions, warm and dry. HEART: no murmurs, regular rate and rhythm. LUNGS: clear to auscultation bilaterally. ABDOMEN: soft, nontender. EXTREMITIES: no edema. PERIPHERAL PULSES: equal. NEUROLOGIC: No gross deficits, AAO X 3 Objective Labs and Meds 12/03/22 08:54 12/02/22 15:00 Assessment and Plan (1) SVT (supraventricular tachycardia): Status: Acute Plan Pleasant 67 gentleman with supraventricular tachycardia. Mostly he is asymptomatic. Monitor electrolytes closely and keep magnesium more than 2 and potassium more than 4. Changing metoprolol tartrate to succinate at 50 mg. This can be titrated further depending on blood pressure to 1 100 mg or can be used as b.i.d. if required. Thank you for allowing me to participate in the care of your patient. Please feel free to contact me if you have any questions. Time Spent With Patient Time: Total time managing care of this patient today ____ minutes. Procedures Date of Service Date of Service: 12/08/22
[2022-12-08 20:00] VITALS: BP 133/69; PULSE 96; RESP 18; TEMP 37.1; O2SAT 95
[2022-12-08] MEDS: Tamsulosin HCL 0.4 MG CAPSULE PO (20:48)
[2022-12-09] VITALS: BP 138/81; PULSE 91; RESP 14; TEMP 36.8; O2SAT 95
[2022-12-09 03:13] VITALS: BP 128/78; PULSE 88; RESP 14; TEMP 36.5; O2SAT 93
[2022-12-09] MEDS: Heparin Sodium,Porcine 5,000 UNIT/ML VIAL 5000 UNIT SUBCUT ×2 (05:58→17:09)
[2022-12-09 07:20] VITALS: BP 153/75; PULSE 87; RESP 20; TEMP 36.4; O2SAT 97
[2022-12-09 09:05] LABS: Anion Gap 14 (12-20); Blood Urea Nitrogen 21 mg/dL (9-16); Calcium 9.9 mg/dL (8.4-10.2); Carbon Dioxide 28 mmol/L (22-29); Chloride 100 mmol/L (96-108); Estimated Glomerular Filt Rate > 60; Glucose Random 94 mg/dL (60-115); Magnesium 1.9 mg/dL (1.6-2.6); Potassium 4.6 mmol/L (3.3-5.1); Sodium 137 mmol/L (135-145)
[2022-12-09] MEDS: Furosemide 20 MG TABLET PO ×2 (09:31→17:09)
[2022-12-09] MEDS: Thiamine HCL 100 MG TABLET PO (09:31)
[2022-12-09] MEDS: Collagenase Clostridium Hist. 30 GM TUBE 1 APPL TOPICAL (09:31)
[2022-12-09] MEDS: Multivitamin TABLET 1 TAB PO (09:31)
[2022-12-09] MEDS: Zinc Oxide 20% Ointment 28.35 GM TUBE 1 APPL TOPICAL ×2 (09:31→20:18)
[2022-12-09] MEDS: Folic Acid 1 MG TABLET PO (09:31)
[2022-12-09] MEDS: Silver Sulfadiazine 1 % Cream 20 GM TUBE 1 APPL TOPICAL (09:36)
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
[2022-12-09 11:22] VITALS: BP 132/68; PULSE 90; RESP 20; TEMP 36.9; O2SAT 94
[2022-12-09 15:06] VITALS: BP 137/74; PULSE 69; RESP 18; TEMP 37; O2SAT 98
[2022-12-09] MEDS: Metoprolol Succinate ER 50 MG TAB.ER.24H PO (17:09)
[2022-12-09 20:00] VITALS: BP 124/80; PULSE 89; RESP 18; TEMP 37.1; O2SAT 98
[2022-12-09] MEDS: Tamsulosin HCL 0.4 MG CAPSULE PO (20:17)
[2022-12-10] VITALS: BP 114/73; PULSE 88; RESP 18; TEMP 36.6; O2SAT 98
[2022-12-10] MEDS: Heparin Sodium,Porcine 5,000 UNIT/ML VIAL 5000 UNIT SUBCUT (06:01)
[2022-12-10 07:27] VITALS: BP 138/77; PULSE 95; RESP 20; TEMP 37.1; O2SAT 95
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
--- NOTE | 2022-12-10 09:27 | MHC.CM.PN ---
Broad SNF search referrals have been updated; CM will continue to follow.
[2022-12-10 09:28] VITALS: BP 138/77; PULSE 95; O2SAT 95
[2022-12-10] MEDS: Furosemide 20 MG TABLET PO (09:43)
[2022-12-10] MEDS: Thiamine HCL 100 MG TABLET PO (09:43)
[2022-12-10] MEDS: Folic Acid 1 MG TABLET PO (09:43)
[2022-12-10] MEDS: Multivitamin TABLET 1 TAB PO (09:43)
[2022-12-10] MEDS: Metoprolol Succinate ER 50 MG TAB.ER.24H PO (09:43)
[2022-12-10] MEDS: Silver Sulfadiazine 1 % Cream 20 GM TUBE 1 APPL TOPICAL (09:44)
[2022-12-10] MEDS: Collagenase Clostridium Hist. 30 GM TUBE 1 APPL TOPICAL (09:44)
[2022-12-10] MEDS: Zinc Oxide 20% Ointment 28.35 GM TUBE 1 APPL TOPICAL (09:44)
--- NOTE | 2022-12-10 10:59 | MHC.CM.PN ---
SNEHA received a call from Mallorie at [facility] at [phone]; [facility] has accepted Patient for STR pending insurance auth. CM will inform Patient of the good news he has been waiting for and CM has left a detailed message for Sister/HCP/Rosalie @ [phone].CM will follow.
[2022-12-10 11:18] VITALS: BP 131/81; PULSE 85; RESP 20; TEMP 36.7; O2SAT 97
--- NOTE | 2022-12-10 12:04 | MHC.CM.PN ---
Patient has been medically cleared for dc to SNF/STR today. Patient will dc to [facility] today at 4PM via [facility]. CM met with Patient at bedside and addressed IMM with him, providing him with the original and placing a copy on the chart. Patient is pleased with the dc plan, as is Sister/HCP/Rosalie @ [phone].
[2022-12-10 12:43] LABS: IDNOW Serial# BCCEAD1C
[2022-12-10 12:44] LABS: COVID-19 Test Negative (Negative)
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
[2022-12-10 15:51] VITALS: BP 130/78; PULSE 80; RESP 19; TEMP 36.7; O2SAT 97
== END 2022-12-10 16:50 | disposition skilled nursing facility (03) | DRG 871 ==
LOC: HO.ED 16:24 → HO.EDOVER 17:12 → HO.IMC 21:00
PROVIDERS: Hospitalist; Internal Medicine; Physician Assistant Medical; Admitting Provider Nurse Practitioner Acute Care; Emergency Provider Emergency Medicine; PCP Internal Medicine; Visit Provider Family Medicine
DX: A41.9 Sepsis, unspecified organism (principal); J69.0 Pneumonitis due to inhalation of food and vomit; J96.01 Acute respiratory failure with hypoxia; L89.313 Pressure ulcer of right buttock, stage 3; L89.323 Pressure ulcer of left buttock, stage 3; U07.1 COVID-19; M62.82 Rhabdomyolysis; F10.139 Alcohol abuse with withdrawal, unspecified; L03.317 Cellulitis of buttock; E87.0 Hyperosmolality and hypernatremia; I96 Gangrene, not elsewhere classified; I47.1 Supraventricular tachycardia; E87.6 Hypokalemia; J47.9 Bronchiectasis, uncomplicated; R79.89 Other specified abnormal findings of blood chemistry; R33.9 Retention of urine, unspecified; N28.9 Disorder of kidney and ureter, unspecified; L89.222 Pressure ulcer of left hip, stage 2; E86.0 Dehydration; M71.21 Synovial cyst of popliteal space [Baker], right knee; J10.1 Influenza due to other identified influenza virus with other respiratory manifestations; L24.A2 Irritant contact dermatitis due to fecal, urinary or dual incontinence; R62.7 Adult failure to thrive; Z68.26 Body mass index [BMI] 26.0-26.9, adult; R65.20 Severe sepsis without septic shock; F17.210 Nicotine dependence, cigarettes, uncomplicated; Z71.6 Tobacco abuse counseling; Z79.899 Other long term (current) drug therapy
CPT/HCPCS: 0241U; 36415; 36600; 70450; 71045; 74176; 74178; 80048; 80053; 80076; 80202; 81001; 81003; 82077; 82248; 82550; 82565; 82607; 82746; 82803; 82947; 83605; 83690; 83735; 83880; 84484; 85025; 85027; 87040; 87070; 87077; 87086; 87186; 87205; 87633; 87635; 87640; 87641; 92526; 92610; 93005; 93306; 93971; 94640; 97110; 97112; 97163; 97167; 97530; 97535; 99285; C1758; J0295; J2543; J2560; J3370; J3475; P9047; Q9957; Q9967

== ENCOUNTER → 2022-10-18 17:04 | Outpatient (BNV) | payer MEDICARE, SELFPAY | PROVIDERS: Admitting Provider Nurse Practitioner Acute Care; Emergency Provider Emergency Medicine; PCP Internal Medicine; Visit Provider Surgery | DX: L30.4 Erythema intertrigo (principal) | CPT/HCPCS: 99222; 99499 ==

== ENCOUNTER 2023-10-18 12:17 | Outpatient (AMB) | payer MEDICARE, SELFPAY ==
--- NOTE | 2023-10-18 12:46 | MHC.PC.OV ---
Vital Signs 10/18/23 12:47 Height 6 ft 1 in Weight 154 lb 0.6 oz BMI 20.3 BP 168/90 H Blood Pressure Location Lt brachial Position Sitting Pulse 83 Pulse Source Pulse Oximeter Pulse Oximetry (%) 96 Oxygen Delivery Method Room Air Intake Visit Reasons: PE Associate Engineer Required: No Accompanied by: Self / Same As Patient Allergies No Known Allergies Allergy (Verified 10/18/23 12:47) Medication List - Last Reconciled 10/18/23 by Winston Phipps MD collagenase clostridium histo. (Santyl) 1 appl See Protocol topical DAILY folic acid 1 mg PO DAILY furosemide 20 mg See Protocol PO BID@0900,1800 lisinopril 10 mg PO DAILY metoprolol succinate ER 50 mg See Protocol PO DAILY multivitamin (Daily-Sheila tablet) 1 tab PO DAILY silver sulfadiazine 1% 1 appl topical DAILY tamsulosin 0.4 mg PO BEDTIME thiamine mononitrate (vit B1) 100 mg PO DAILY zinc oxide 20% 1 appl See Protocol topical BID Tobacco use date assessed: 10/18/23 Fall risk assessment: No Falls in past year Last assessed Fall Risk: 10/18/23 Dental Screening Dental Screen Date: 10/18/23 Did you have a dental visit in the last 12 months?: No Did you have a dental problem in the last 6 months where you did not have access to dental care?: No HPI PE HPI Details HTN but off rx for months; excess alcohol consumptions and 1 1/2 packs a day [facility] Medical History (Updated 10/18/23 @ 13:06 by Winston Phipps MD) Hypertension SVT (supraventricular tachycardia) Edema Pressure ulcer Aspiration pneumonia Fever of unknown origin Alcohol use disorder Cognitive disorder Hypokalemia Elevated troponin level Influenza A COVID-19 virus infection Alcohol withdrawal Cellulitis of buttock Rhabdomyolysis Surgical History History of lumbar laminectomy Family History Father No problems noted. 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 1. Little interest or pleasure in doing things: not at all 2. Feeling down, depressed, or hopeless: several days (brother passing) 3. Trouble falling or staying asleep, or sleeping too much: not at all 4. Feeling tired or having little energy: not at all 5. Poor appetite or overeating: not at all 6. Feeling bad about yourself - or that you are a failure or have let yourself or your family down: not at all 7. Trouble concentrating on things, such as reading the newspaper or watching television: not at all 8. Moving or speaking so slowly that other people could have noticed. Or the opposite - being so fidgety or restless that you have been moving around a lot more than usual: not at all 9. Thoughts that you would be better off or of hurting yourself in some way: not at all Total score: 1 Depression Screening Interpretation: Negative Depression Screening Done: Yes 70108 - PHQ-9 Billing: Yes Source: Developed by Drs. Wander Fox, Mallorie Reed, Dwight Vernon and colleagues, with an educational gabbi from [employer]. Thrive Questionnaire Date Thrive assessed: 01/14/23 AUDIT C Alcohol Use Questionnaire (AUDIT-C) 1. How often do you have a drink containing alcohol?: 4 or more times a week 2. How many drinks containing alcohol do you have on a typical day when you are drinking?: 3 or 4 Total Score: 5 Score Reviewed/Action Taken: Yes TATIANA-7 AMB Questionnaire TATIANA-7 Date TATIANA - 7 assessed: 10/18/23 Feeling nervous, anxious, or on edge: 1 = Several days (brother passing ) Not being able to stop or control worryin = Not at all Worrying too much about different things: 0 = Not at all Trouble relaxin = Not at all Being so restless that it is hard to sit still: 0 = Not at all Becoming easily annoyed or irritable: 0 = Not at all Feeling afraid as if something awful might happen: 0 = Not at all Total TATIANA-7 score (0-4 normal; 5-9 mild; 10-14 moderate; 15-21 severe): 1 Source: Developed by Drs. Wander Fox, Mallorie Reed, Dwight Vernon and colleagues, with an educational gabbi from [employer]. TATIANA-7 Assessment Billing TATIANA-7 Assessment Tool: TATIANA-7 Assessment 08921 Review of Systems Const Denies chills, Denies fatigue, Denies headache(s) and Denies weight loss Eyes Denies change in vision, Denies diplopia and Denies eye pain ENT Denies vertigo, Denies dizziness, Denies headache(s) and Denies nasal discharge Card Denies chest pain, Denies rapid heart rate and Denies dyspnea on exertion Resp Denies chest congestion, Denies cough, Denies pain with cough and Denies dyspnea on exertion GI Denies abdominal pain, Denies hematochezia and Denies change in bowel habits Musc Denies myalgias, Denies arthralgias and Denies joint swelling Skin/Breast Denies lesions and Denies unusual bruising Neuro Denies vertigo, Denies dizziness, Denies headache(s) and Denies focal weakness Endo Denies fatigue Physical exam (Primary Care) Vital Signs: Last Vital Signs Pulse 83 10/18/23 12:47 BP 168/90 H 10/18/23 12:47 Pulse Ox 96 10/18/23 12:47 Oxygen Delivery Method Room Air 10/18/23 12:47 BMI result Body Mass Index 20.3 Tobacco/Smoking Status: Tobacco use Status Tobacco use date assessed 10/18/23 10/18/23 12:51 Patient Tobacco Use Status Current everyday Tobacco 10/18/23 12:51 Tobacco use type Cigarette 10/18/23 12:51 e-Cigarette/Vaping Use Never Used 10/18/23 12:51 Are you ready to quit: No Tobacco cessation counseling provided: Yes Number of minutes spent counselin CPT code: 18508 - 4-10 Minutes PHQ-9: PHQ-9 Score PHQ-9: Total score 1 10/18/23 13:04 Depression Screening Interpretation: Negative Thrive Assessment: Date of Thrive Assessment Date Thrive assessed 01/14/23 10/18/23 12:51 Const General: cooperative, healthy appearing and no acute distress Orientation/consciousness: oriented to person, oriented to place and oriented to time HENMT Head: Yes normal to inspection, Yes normocephalic and Yes atraumatic Mouth: Normal oral and palatal mucosa present and tongue normal Throat: Yes posterior oropharynx normal and Yes uvula midline Eyes General: appearance normal, both eyes and all related structures Neck Neck: Yes normal visual inspection, Yes full ROM and Yes no lymphadenopathy Thyroid: Thyroid normal Carotids: normal carotid upstroke Chest Chest palpation & inspection: normal inspection of the chest Resp Effort & Inspection: normal respiratory effort and able to speak in complete sentences Auscultation: clear to auscultation bilaterally Cardio Jugular venous distension: no JVD Palpation: normal PMI Rate: regular rate Rhythm: regular rhythm Heart sounds: S1 normal heart sound present and S2 normal heart sound present GI Inspection: Yes normal to inspection Palpation (GI): Soft to palpation and No hepatosplenomegaly present Auscultation: normal bowel sounds General: Yes no CVA tenderness Back/Spine/Pelvis Back: no CVA tenderness Skin General skin exam: no rashes or lesions noted Neuro General: oriented to person, oriented to place and oriented to time Extrem General: Yes normal to inspection and Yes full ROM Office Procedures Flu Questionnaire Does the patient have a severe egg allergy?: No Does the patient have severe life threatening allergies?: No Does the patient have a fever or illness today?: No Has the patient ever had Guillain-[place] Syndrome?: No Has the patient ever had any past reaction to a flu shot?: No Immunizations flu vacc [id number] 6mos up(PF) 60 mcg(15 mcgx4)/0.5 mL IM syringe Performing Provider: Winston Phipps MD Performing Location: [facility] Administered by: MARÍA Rosales on 10/18/23 13:06 Dose Route Admin Location Dispensed Lot Number Expiration Date NDC Assistant Tennis Coach 0.5 mL IM Left Deltoid 0.5 mL [id number] 04/22/24 [id number] [employer] VIS Given Date VIS Provided VIS Publication Date 10/18/23 Single Vaccine 21 Eligibility Eligibility Date Funding Source Not VFC Eligible 10/18/23 Private Assessment and Plan Assessment & Plan (1) Physical exam: Code(s): Z00.00 - Encounter for general adult medical examination without abnormal findings Plan: labs and 1 week f/u (2) Hypertension: Code(s): I10 - Essential (primary) hypertension Plan: restart rx (3) Alcoholism: Code(s): F10.20 - Alcohol dependence, uncomplicated Plan: discuss again at next ov in a week Orders: Orders Lipid Panel Today E78.5 - Hyperlipidemia, unspecified Thyroid Stimulating Hormone Today E03.9 - Hypothyroidism, unspecified Comprehensive [place]. Panel Fast Today N28.9 - Disorder of kidney and ureter, unspecified Influenza [id number] Immunization Today Z23 - Encounter for immunization Complete Blood Count Auto Diff Today D64.9 - Anemia, unspecified Prostate Specific Antigen Scr Today Z00.00 - Encounter for general adult medical examination without abnormal findings Medications: Refilled lisinopril 10 mg PO DAILY 90 tabs 8RF metoprolol succinate ER 50 mg See Protocol PO DAILY 30 tabs 0RF Coding Level of Care Code Est Pt Prev Care >65y(88929) Diagnoses Physical exam Z00.00 Hypertension I10 Alcoholism F10.20 Additional Codes TATIANA-7 Assessment Billing - TATIANA-7 Assessment Tool: TATIANA-7 Assessment 76739 ([id number]) Vital Signs *Quality* - CPT code: 25697 - 4-10 Minutes ([id number])
[2023-10-18 12:47] VITALS: BP 168/90; PULSE 83; O2SAT 96; BMI 20.3
== END 2023-10-18 13:07 | disposition home or self-care (01) ==
PROVIDERS: PCP Internal Medicine; Visit Provider Internal Medicine
DX: Z00.00 Encounter for general adult medical examination without abnormal findings (principal); I10 Essential (primary) hypertension; F10.20 Alcohol dependence, uncomplicated; Z23 Encounter for immunization
CPT/HCPCS: 90471; 90686; 99397

== ENCOUNTER 2023-10-21 12:22 | Outpatient (REF) | payer MEDICARE, SELFPAY ==
[2023-10-21 12:39] LABS: MANUAL DIFF FLAG NO
[2023-10-21 14:09] LABS: Basophils Absolute Auto 0.1 X10*3/uL (0.0-0.2); Basophils Percent Auto 0.5 % (0-2); Eosinophils Absolute Auto 0.1 X10*3/uL (0.0-0.4); Eosinophils Percent Auto 1.4 % (0-4); Hematocrit 45.3 % (42.0-52.0); Imm Gran Abs Auto 0.05 X10*3/uL (0.00-0.03); Imm Gran Pct Auto 0.5 % (0.0-0.4); Lymphocytes Absolute Auto 2.1 X10*3/uL (1.2-4.9); Mean Corpuscular HGB Conc 34.9 g/dl (31.0-36.0); Mean Corpuscular Hemoglobin 32.2 pg (27.0-33.0); Mean Corpuscular Volume 92.3 fL (80.0-98.0); Mean Platelet Volume 9.7 fL (9.4-12.4); Monocytes Absolute Auto 0.9 X10*3/uL (0.1-1.2); Monocytes Percent Auto 9.3 % (2-11); Neutrophils Absolute Auto 6.3 x10*3/uL (2.0-8.3); Neutrophils Percent Auto 66.3 % (45-73); Platelet Count 314 X10*3/uL (160-400); Red Blood Count 4.91 X10*6/uL (4.60-5.80); Red Cell Distribution Width 13.4 % (11.0-16.0); White Blood Count 9.5 X10*3/uL (4.8-10.8)
[2023-10-21 14:11] LABS: Hemoglobin 15.8 g/dl (14.0-18.0)
[2023-10-21 14:35] LABS: Alanine Aminotransferase 16 U/L (0-40); Albumin Level 4.1 g/dL (3.5-5.0); Alkaline Phosphatase 98 U/L (39-117); Anion Gap 11 (12-20); Aspartate Amino Transferase 29 U/L (5-37); Bilirubin Total 0.7 mg/dL (0.0-1.0); Blood Urea Nitrogen 11 mg/dL (9-16); Carbon Dioxide 30 mmol/L (22-29); Chloride 95 mmol/L (96-108); Cholesterol 173 mg/dL (<200); Estimated Glomerular Filt Rate > 60; Glucose Fasting 88 mg/dL (60-99); HDL Cholesterol 94 mg/dL (>40); LDL Cholesterol Calculated 69 mg/dL (<100); Potassium 5.2 mmol/L (3.3-5.1); Sodium 131 mmol/L (135-145); Triglycerides 51 mg/dL (<150)
[2023-10-21 14:50] LABS: Prostate Specific Antigen Scr 1.36 ng/mL (<0.05-4.0)
[2023-10-21 14:51] LABS: Thyroid Stimulating Hormone 1.04 uIU/mL (0.32-4.0)
== END 2023-10-21 12:23 | disposition home or self-care (01) ==
LOC: HO.LAB 12:22
PROVIDERS: PCP Internal Medicine; Visit Provider Internal Medicine
DX: Z00.00 Encounter for general adult medical examination without abnormal findings (principal); E03.9 Hypothyroidism, unspecified; N28.9 Disorder of kidney and ureter, unspecified; E78.5 Hyperlipidemia, unspecified; D64.9 Anemia, unspecified; Z12.5 Encounter for screening for malignant neoplasm of prostate
CPT/HCPCS: 36415; 80053; 80061; 84153; 84443; 85025

== ENCOUNTER 2023-10-27 13:19 | Outpatient (AMB) | payer MEDICARE, SELFPAY ==
[2023-10-27 13:22] VITALS: BP 150/78; PULSE 85; O2SAT 96; BMI 24.8
--- NOTE | 2023-10-27 13:22 | MHC.PC.OV ---
Vital Signs 10/27/23 13:22 Height 6 ft 1 in Weight 188 lb BMI 24.8 BP 150/78 H Blood Pressure Location Lt brachial Position Sitting Pulse 85 Pulse Source Pulse Oximeter Pulse Oximetry (%) 96 Oxygen Delivery Method Room Air Intake Visit Reasons: 1 week f/u ( new med f/u) Sales Consulting Director Required: No Credentialing Specialist: Not Required per policy Accompanied by: Self / Same As Patient Allergies No Known Allergies Allergy (Verified 10/27/23 13:22) Medication List - Last Reconciled 10/27/23 by Winston Phipps MD collagenase clostridium histo. (Santyl) 1 appl See Protocol topical DAILY folic acid 1 mg PO DAILY furosemide 20 mg See Protocol PO BID@0900,1800 lisinopril 10 mg PO DAILY metoprolol succinate ER 50 mg See Protocol PO DAILY multivitamin (Daily-Sheila tablet) 1 tab PO DAILY silver sulfadiazine 1% 1 appl topical DAILY tamsulosin 0.4 mg PO BEDTIME thiamine mononitrate (vit B1) 100 mg PO DAILY zinc oxide 20% 1 appl See Protocol topical BID Tobacco use date assessed: 10/18/23 Fall risk assessment: No Falls in past year Last assessed Fall Risk: 10/27/23 Dental Screening Dental Screen Date: 10/27/23 Did you have a dental visit in the last 12 months?: Yes Did you have a dental problem in the last 6 months where you did not have access to dental care?: No Was dental information given to patient?: Patient has dentist HPI 1 week f/u ( new med f/u) HPI Details f/u HTN; has not started lisinopril yet; [facility]; labs ok PFSH Medical History Hypertension SVT (supraventricular tachycardia) Edema Pressure ulcer Aspiration pneumonia Fever of unknown origin Alcohol use disorder Cognitive disorder Hypokalemia Elevated troponin level Influenza A COVID-19 virus infection Alcohol withdrawal Cellulitis of buttock Rhabdomyolysis Surgical History History of lumbar laminectomy Family History Father No problems noted. 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 Wander Fox, Mallorie Reed, Dwight Vernon and colleagues, with an educational gabbi from [employer]. Review of Systems Const Denies chills, Denies headache(s) and Denies weight loss ENT Denies headache(s) Card Denies chest pain, Denies syncope, Denies irregular heart rhythm and Denies dyspnea Resp Denies chest congestion, Denies cough and Denies dyspnea GI Denies abdominal pain, Denies change in stool character, Denies nausea and Denies vomiting Musc Denies deformity and Denies joint swelling Neuro Denies syncope and Denies headache(s) Physical exam (Primary Care) Vital Signs: Last Vital Signs Pulse 85 10/27/23 13:22 BP 150/78 H 10/27/23 13:22 Pulse Ox 96 10/27/23 13:22 Oxygen Delivery Method Room Air 10/27/23 13:22 BMI result Body Mass Index 24.8 Tobacco/Smoking Status: Tobacco use Status Tobacco use date assessed 10/18/23 10/27/23 13:23 Patient Tobacco Use Status Current everyday Tobacco 10/27/23 13:23 Tobacco use type Cigarette 10/27/23 13:23 e-Cigarette/Vaping Use Never Used 10/27/23 13:23 Thrive Assessment: Date of Thrive Assessment Date Thrive assessed 01/14/23 10/27/23 13:23 Const General: cooperative, comfortable, no acute distress and alert Neck Neck: Yes no lymphadenopathy Thyroid: Thyroid normal Resp Effort & Inspection: normal respiratory effort Auscultation: clear to auscultation bilaterally Percussion: percussion normal Cardio Jugular venous distension: no JVD Palpation: normal PMI Rate: regular rate Rhythm: regular rhythm Heart sounds: S1 normal heart sound present and S2 normal heart sound present GI Inspection: Yes normal to inspection Palpation (GI): No hepatosplenomegaly present Skin General skin exam: no rashes or lesions noted Extrem General: Yes no clubbing, cyanosis or edema Assessment and Plan Assessment & Plan (1) Hypertension: Code(s): I10 - Essential (primary) hypertension Plan: start rx; f/u 2 weeks Medications: Refilled lisinopril 10 mg PO DAILY 90 tabs 8RF Coding Level of Care Code Est Pt Level 3 (48619) Diagnoses Hypertension I10
== END 2023-10-27 13:35 | disposition home or self-care (01) ==
PROVIDERS: PCP Internal Medicine; Visit Provider Internal Medicine
DX: I10 Essential (primary) hypertension (principal)
CPT/HCPCS: 99213

== ENCOUNTER 2023-11-10 10:48 | Outpatient (AMB) | payer OTHER, SELFPAY ==
[2023-11-10 10:50] VITALS: BP 148/80; PULSE 64; O2SAT 99; BMI 24.8
--- NOTE | 2023-11-10 10:50 | MHC.PC.OV ---
Vital Signs 11/10/23 10:50 Height 6 ft 1 in Weight 188 lb BMI 24.8 BP 148/80 H Blood Pressure Location Lt brachial Position Sitting Pulse 64 Pulse Source Pulse Oximeter Pulse Oximetry (%) 99 Oxygen Delivery Method Room Air Intake Visit Reasons: 2 week f/u Coremaker Machine Required: No Net Applications Developer: Not Required per policy Accompanied by: Self / Same As Patient Allergies No Known Allergies Allergy (Verified 11/10/23 10:51) Medication List - Last Reconciled 11/10/23 by Winston Phipps MD collagenase clostridium histo. (Santyl) 1 appl See Protocol topical DAILY folic acid 1 mg PO DAILY furosemide 20 mg See Protocol PO BID@0900,1800 lisinopril 10 mg PO DAILY metoprolol succinate ER 50 mg See Protocol PO DAILY multivitamin (Daily-Sheila tablet) 1 tab PO DAILY silver sulfadiazine 1% 1 appl topical DAILY tamsulosin 0.4 mg PO BEDTIME thiamine mononitrate (vit B1) 100 mg PO DAILY zinc oxide 20% 1 appl See Protocol topical BID Tobacco use date assessed: 11/10/23 Fall risk assessment: No Falls in past year Last assessed Fall Risk: 11/10/23 Dental Screening Dental Screen Date: 11/10/23 Did you have a dental visit in the last 12 months?: Yes Did you have a dental problem in the last 6 months where you did not have access to dental care?: No Was dental information given to patient?: Patient has dentist HPI 2 week f/u HPI Details HTN on Rx; taking rx regularly; moderating his alcohol a bit; labs fine [facility] Medical History Hypertension SVT (supraventricular tachycardia) Edema Pressure ulcer Aspiration pneumonia Fever of unknown origin Alcohol use disorder Cognitive disorder Hypokalemia Elevated troponin level Influenza A COVID-19 virus infection Alcohol withdrawal Cellulitis of buttock Rhabdomyolysis Surgical History History of lumbar laminectomy Family History Father No problems noted. 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 1. Little interest or pleasure in doing things: not at all 2. Feeling down, depressed, or hopeless: several days (brother passing) 3. Trouble falling or staying asleep, or sleeping too much: not at all 4. Feeling tired or having little energy: not at all 5. Poor appetite or overeating: not at all 6. Feeling bad about yourself - or that you are a failure or have let yourself or your family down: not at all 7. Trouble concentrating on things, such as reading the newspaper or watching television: not at all 8. Moving or speaking so slowly that other people could have noticed. Or the opposite - being so fidgety or restless that you have been moving around a lot more than usual: not at all 9. Thoughts that you would be better off or of hurting yourself in some way: not at all Total score: 1 Depression Screening Interpretation: Negative Depression Screening Done: Yes 13260 - PHQ-9 Billing: Yes Source: Developed by Drs. Wander Fox, Mallorie Reed, Dwight Vernon and colleagues, with an educational gabbi from [employer]. Thrive Questionnaire Date Thrive assessed: 11/10/23 I am a: Patient What is your living situation today?: I have a steady place to live Within the past 12 months, did the food you bought not last and you didn't have the money to get more?: Never true Within the past 12 months, did you worry whether your food would run out before you got money to buy more?: Never true Do you have trouble paying for medicines?: No Do you have trouble getting transportation to medical appointments?: No Do you have trouble paying your heating and electricity bill?: No Do you have trouble taking care of your child, family member or friend?: No Do you have trouble with day-to-day activities such as bathing, preparing meals, shopping, managing finances, etc.?: No Are you currently unemployed and looking for a job?: No Are you interested in more education?: No Please select the resources that you would like help with: None AUDIT C Alcohol Use Questionnaire (AUDIT-C) 1. How often do you have a drink containing alcohol?: 4 or more times a week 2. How many drinks containing alcohol do you have on a typical day when you are drinking?: 3 or 4 Total Score: 5 Score Reviewed/Action Taken: Yes TATIANA-7 AMB Questionnaire TATIANA-7 Date TATIANA - 7 assessed: 11/10/23 Feeling nervous, anxious, or on edge: 0 = Not at all Not being able to stop or control worryin = Not at all Worrying too much about different things: 0 = Not at all Trouble relaxin = Not at all Being so restless that it is hard to sit still: 0 = Not at all Becoming easily annoyed or irritable: 0 = Not at all Feeling afraid as if something awful might happen: 0 = Not at all Total TATIANA-7 score (0-4 normal; 5-9 mild; 10-14 moderate; 15-21 severe): 0 Source: Developed by Drs. Wander Fox, Mallorie Reed, Dwight Vernon and colleagues, with an educational gabbi from [employer]. Review of Systems Const Denies chills, Denies headache(s) and Denies weight loss ENT Denies headache(s) Card Denies chest pain, Denies syncope, Denies irregular heart rhythm and Denies dyspnea Resp Denies chest congestion, Denies cough and Denies dyspnea GI Denies abdominal pain, Denies change in stool character, Denies nausea and Denies vomiting Musc Denies deformity and Denies joint swelling Neuro Denies syncope and Denies headache(s) Physical exam (Primary Care) Vital Signs: Last Vital Signs Pulse 64 11/10/23 10:50 BP 148/80 H 11/10/23 10:50 Pulse Ox 99 11/10/23 10:50 Oxygen Delivery Method Room Air 11/10/23 10:50 BMI result Body Mass Index 24.8 Tobacco/Smoking Status: Tobacco use Status Tobacco use date assessed 11/10/23 11/10/23 10:52 Patient Tobacco Use Status Current everyday Tobacco 11/10/23 10:52 Tobacco use type Cigarette 11/10/23 10:52 e-Cigarette/Vaping Use Never Used 11/10/23 10:52 PHQ-9: PHQ-9 Score PHQ-9: Total score 1 11/10/23 10:52 Depression Screening Interpretation: Negative Thrive Assessment: Date of Thrive Assessment Date Thrive assessed 11/10/23 11/10/23 10:52 Const General: cooperative, comfortable, no acute distress and alert Neck Neck: Yes no lymphadenopathy Thyroid: Thyroid normal Resp Effort & Inspection: normal respiratory effort Auscultation: clear to auscultation bilaterally Percussion: percussion normal Cardio Jugular venous distension: no JVD Palpation: normal PMI Rate: regular rate Rhythm: regular rhythm Heart sounds: S1 normal heart sound present and S2 normal heart sound present GI Inspection: Yes normal to inspection Palpation (GI): No hepatosplenomegaly present Skin General skin exam: no rashes or lesions noted Extrem General: Yes no clubbing, cyanosis or edema Assessment and Plan Assessment & Plan (1) Hypertension: Code(s): I10 - Essential (primary) hypertension Plan: stable; same rx (2) Alcoholism: Code(s): F10.20 - Alcohol dependence, uncomplicated Plan: continue to moderate alcohol consumption Coding Level of Care Code Est Pt Level 3 (04419) Diagnoses Hypertension I10 Alcoholism F10.20
== END 2023-11-10 11:06 | disposition home or self-care (01) ==
PROVIDERS: PCP Internal Medicine; Visit Provider Internal Medicine
DX: I10 Essential (primary) hypertension (principal); F10.20 Alcohol dependence, uncomplicated
CPT/HCPCS: 99213

== ENCOUNTER 2024-02-09 09:40 | Outpatient (AMB) | payer OTHER, SELFPAY ==
[2024-02-09 09:44] VITALS: BP 146/82; PULSE 70; O2SAT 95; BMI 25.3
--- NOTE | 2024-02-09 09:44 | MHC.PC.OV ---
Vital Signs 02/09/24 09:44 Height 6 ft 1 in Weight 192 lb BMI 25.3 BP 146/82 H Blood Pressure Location Lt brachial Position Sitting Pulse 70 Pulse Source Pulse Oximeter Pulse Oximetry (%) 95 Oxygen Delivery Method Room Air Intake Visit Reasons: 3mth f/u Communications Maintainer Required: No Allergies No Known Allergies Allergy (Verified 02/09/24 09:44) Medication List - Last Reconciled 02/09/24 by Winston Phipps MD collagenase clostridium histo. (Santyl) 1 appl See Protocol topical DAILY folic acid 1 mg PO DAILY furosemide 20 mg See Protocol PO BID@0900,1800 lisinopril 10 mg PO DAILY metoprolol succinate ER 50 mg See Protocol PO DAILY multivitamin (Daily-Sheila tablet) 1 tab PO DAILY silver sulfadiazine 1% 1 appl topical DAILY tamsulosin 0.4 mg PO BEDTIME thiamine mononitrate (vit B1) 100 mg PO DAILY zinc oxide 20% 1 appl See Protocol topical BID Tobacco use date assessed: 02/09/24 Fall risk assessment: No Falls in past year Last assessed Fall Risk: 02/09/24 Dental Screening Dental Screen Date: 11/10/23 HPI 3mth f/u HPI Details HTN on Rx; appears compliant; still smokes over a pack a day and consumes beer, but less than before [facility] Medical History Hypertension SVT (supraventricular tachycardia) Edema Pressure ulcer Aspiration pneumonia Fever of unknown origin Alcohol use disorder Cognitive disorder Hypokalemia Elevated troponin level Influenza A COVID-19 virus infection Alcohol withdrawal Cellulitis of buttock Rhabdomyolysis Surgical History History of lumbar laminectomy Family History Father No problems noted. 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 How often do you have a drink containing alcohol?: 4 or more times a week 2. How many drinks containing alcohol do you have on a typical day when you are drinking?: 3 or 4 Total Score: 5 Score Reviewed/Action Taken: Yes TATIANA-7 AMB Questionnaire TATIANA-7 Date TATIANA - 7 assessed: 11/10/23 Source: Developed by Drs. Wander Fox, Mallorie Reed, Dwight Vernon and colleagues, with an educational gabbi from [employer]. Review of Systems Const Denies chills, Denies headache(s) and Denies weight loss ENT Denies headache(s) Card Denies chest pain, Denies syncope, Denies irregular heart rhythm and Denies dyspnea Resp Denies chest congestion, Denies cough and Denies dyspnea GI Denies abdominal pain, Denies change in stool character, Denies nausea and Denies vomiting Musc Denies deformity and Denies joint swelling Neuro Denies syncope and Denies headache(s) Physical exam (Primary Care) Vital Signs: Last Vital Signs Pulse 70 02/09/24 09:44 BP 146/82 H 02/09/24 09:44 Pulse Ox 95 02/09/24 09:44 Oxygen Delivery Method Room Air 02/09/24 09:44 BMI result Body Mass Index 25.3 Tobacco/Smoking Status: Tobacco use Status Tobacco use date assessed 02/09/24 02/09/24 09:45 Patient Tobacco Use Status Current everyday Tobacco 02/09/24 09:45 Tobacco use type Cigarette 02/09/24 09:45 e-Cigarette/Vaping Use Never Used 02/09/24 09:45 Thrive Assessment: Date of Thrive Assessment Date Thrive assessed 11/10/23 02/09/24 09:45 Const General: cooperative, comfortable, no acute distress and alert Neck Neck: Yes no lymphadenopathy Thyroid: Thyroid normal Resp Effort & Inspection: normal respiratory effort Auscultation: clear to auscultation bilaterally Percussion: percussion normal Cardio Jugular venous distension: no JVD Palpation: normal PMI Rate: regular rate Rhythm: regular rhythm Heart sounds: S1 normal heart sound present and S2 normal heart sound present GI Inspection: Yes normal to inspection Palpation (GI): No hepatosplenomegaly present Skin General skin exam: no rashes or lesions noted Extrem General: Yes no clubbing, cyanosis or edema Assessment and Plan Assessment & Plan (1) Hypertension: Code(s): I10 - Essential (primary) hypertension Plan: stable; same rx Coding Level of Care Code Est Pt Level 3 (59177) Diagnoses Hypertension I10
== END 2024-02-09 10:23 | disposition home or self-care (01) ==
PROVIDERS: PCP Internal Medicine; Visit Provider Internal Medicine
DX: I10 Essential (primary) hypertension (principal)
CPT/HCPCS: 99213

== ENCOUNTER 2024-05-10 10:24 | Outpatient (AMB) | payer OTHER, SELFPAY ==
--- NOTE | 2024-05-10 10:38 | A.OFFPC_ITS ---
Vital Signs 05/10/24 10:39 Height 6 ft 1 in Weight 190 lb 2 oz BMI 25.1 BP 122/72 Blood Pressure Location Lt brachial Position Sitting Pulse 70 Pulse Source Pulse Oximeter Pulse Oximetry (%) 98 Oxygen Delivery Method Room Air Intake Visit Reasons: 3mth f/u - Due for colonoscopy Chinese Herbalist Required: No Accompanied by: Self / Same As Patient Allergies No Known Allergies Allergy (Verified 05/10/24 10:44) Tobacco use date assessed: 02/09/24 Dental Screening Dental Screen Date: 11/10/23 HPI 3mth f/u - Due for colonoscopy HPI Details HTN on Rx; doing well; compliant; due for colonoscopy and lung cancer screening [facility] Medical History Hypertension SVT (supraventricular tachycardia) Edema Pressure ulcer Aspiration pneumonia Fever of unknown origin Alcohol use disorder Cognitive disorder Hypokalemia Elevated troponin level Influenza A COVID-19 virus infection Alcohol withdrawal Cellulitis of buttock Rhabdomyolysis Surgical History History of lumbar laminectomy Family History Father No problems noted. 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 Wander Fox, Mallorie Reed, Dwight Vernon and colleagues, with an educational gabbi from [employer]. Review of Systems Const Denies chills, Denies headache(s) and Denies weight loss ENT Denies headache(s) Card Denies chest pain, Denies syncope, Denies irregular heart rhythm and Denies dyspnea Resp Denies chest congestion, Denies cough and Denies dyspnea GI Denies abdominal pain, Denies change in stool character, Denies nausea and Denies vomiting Musc Denies deformity and Denies joint swelling Neuro Denies syncope and Denies headache(s) Physical exam (Primary Care) Vital Signs: Last Vital Signs Pulse 70 05/10/24 10:39 BP 122/72 05/10/24 10:39 Pulse Ox 98 05/10/24 10:39 Oxygen Delivery Method Room Air 05/10/24 10:39 BMI result Body Mass Index 25.1 Tobacco/Smoking Status: Tobacco use Status Tobacco use date assessed 02/09/24 05/10/24 10:38 Patient Tobacco Use Status Current everyday Tobacco 05/10/24 10:38 Tobacco use type Cigarette 05/10/24 10:38 e-Cigarette/Vaping Use Never Used 05/10/24 10:38 Thrive Assessment: Date of Thrive Assessment Date Thrive assessed 11/10/23 05/10/24 10:38 Const General: cooperative, comfortable, no acute distress and alert Neck Neck: Yes no lymphadenopathy Thyroid: Thyroid normal Resp Effort & Inspection: normal respiratory effort Auscultation: clear to auscultation bilaterally Percussion: percussion normal Cardio Jugular venous distension: no JVD Palpation: normal PMI Rate: regular rate Rhythm: regular rhythm Heart sounds: S1 normal heart sound present and S2 normal heart sound present GI Inspection: Yes normal to inspection Palpation (GI): No hepatosplenomegaly present Skin General skin exam: no rashes or lesions noted Extrem General: Yes no clubbing, cyanosis or edema Assessment and Plan Assessment & Plan (1) Hypertension: Code(s): I10 - Essential (primary) hypertension Plan: stable; same rx Orders: Referrals Gastroenterology Referral Z12.11 - Encounter for screening for malignant neoplasm of colon Lung Cancer Screening Referral F17.200 - Nicotine dependence, unspecified, uncomplicated Orthopedics Referral M25.569 - Pain in unspecified knee Coding Level of Care Code Est Pt Level 3 (93606) Diagnoses Hypertension I10
[2024-05-10 10:39] VITALS: BP 122/72; PULSE 70; O2SAT 98; BMI 25.1
== END 2024-05-10 10:58 | disposition home or self-care (01) ==
PROVIDERS: PCP Internal Medicine; Visit Provider Internal Medicine
DX: I10 Essential (primary) hypertension (principal)
CPT/HCPCS: 99213

== ENCOUNTER 2024-06-07 13:44 | Outpatient (AMB) | payer OTHER, SELFPAY ==
[2024-06-07 13:46] VITALS: BMI 25.1
--- NOTE | 2024-06-07 13:46 | MHC.OFFVIS ---
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 Patient reports that he has had ongoing right knee pain that is felt while walking and with increased activity. Hx of cortisone injection, which was helpful and he would like to repeat. 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 Patient reports that he has had ongoing right knee pain that is felt while walking and with increased activity. Hx of cortisone injection, which was helpful and he would like to repeat. [facility] Medical History Hypertension SVT (supraventricular tachycardia) Edema Pressure ulcer Aspiration pneumonia Fever of unknown origin Alcohol use disorder Cognitive disorder Hypokalemia Elevated troponin level Influenza A COVID-19 virus infection Alcohol withdrawal Cellulitis of buttock Rhabdomyolysis Surgical History History of lumbar laminectomy Family History Father No problems noted. 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 Valgus alignment right knee Office Procedures Joint Injection/Aspiration Joint Injection/Aspiration Details: Injected 1 mL of Decadron and 3 mL 1% lidocaine and 3 mL of 0.25% Marcaine. Site was prepped using aseptic technique. Patient tolerated the procedure well. Primary Site: right knee Approach Used: anterolateral Coding - Large joint Procedure code (CPT) selection complete Results Reviewed Results Reviewed: Severe valgus osteoarthritis right knee Assessment & Plan Assessment & Plan (1) Primary osteoarthritis of right knee: Code(s): M17.11 - Unilateral primary osteoarthritis, right knee Category: Medical Plan: This is a 68-year-old gentleman with severe osteoarthritis of the right knee. He is pretty hesitant to undergo surgery. It is unclear his alcohol consumption. I discussed surgery with him. At this time we elected to do an injection and he will think about other options who can return to see me in 3 months if he so desires. (2) Alcoholism: Code(s): F10.20 - Alcohol dependence, uncomplicated Category: Medical Plan: Orders: Orders XR knee RT 3V 06/07/24 M25.561 - Pain in right knee Coding Level of Care Code Est Pt Level 3 (53703) Complex EM visit Add On G2211 Diagnoses Primary osteoarthritis of right knee M17.11 Alcoholism F10.20 CPT Codes Coding - Large joint: 76431 - Large joint ([id number])
== END 2024-06-07 14:44 | disposition home or self-care (01) ==
PROVIDERS: PCP Internal Medicine; Visit Provider Orthopaedic Surgery
DX: M17.11 Unilateral primary osteoarthritis, right knee (principal); F10.20 Alcohol dependence, uncomplicated
CPT/HCPCS: 20610; 99213

== ENCOUNTER 2024-06-07 13:44 | Outpatient (REF) | payer OTHER, SELFPAY ==
--- NOTE | ~2024-06-07 | XR_ITS ---
EXAMINATION: XR KNEE, RIGHT CLINICAL INFORMATION: Right knee pain. COMPARISON: Most recent knee radiographs dated 12/31/2020. TECHNIQUE: AP standing view of the right and left knee as well as lateral and sunrise views of the right knee. FINDINGS: Right Knee: Severe lateral compartment joint space narrowing with bony remodeling and subchondral sclerosis, slightly progressed. Tricompartmental marginal osteophytes. No acute fracture or dislocation. Redemonstration of a corticated lesion within the proximal tibia which could represent a remote bone infarct versus enchondroma. No concerning lytic or blastic osseous lesion. [id number]-[id number] joint effusion. Atherosclerotic calcifications. Left Knee: Mild medial compartment joint space narrowing, unchanged. No concerning lytic or blastic osseous lesion. Atherosclerotic calcifications. XR/XR knee RT 3V IMPRESSION: RIGHT KNEE: Tricompartmental osteoarthritis, most severe within the lateral compartment, slightly progressed when compared to the prior radiographs. [id number] joint effusion. LEFT KNEE: Mild medial compartment osteoarthritis, unchanged. No acute osseous abnormality. Electronically signed by: Allan Espino MD 07/04/2024 08:58 PM EDT
== END 2024-06-07 13:45 | disposition home or self-care (01) ==
LOC: HO.HOSX 13:44
PROVIDERS: PCP Internal Medicine; Visit Provider Orthopaedic Surgery
DX: M25.561 Pain in right knee (principal); M17.11 Unilateral primary osteoarthritis, right knee; F10.20 Alcohol dependence, uncomplicated; M25.461 Effusion, right knee
CPT/HCPCS: 20610; 73562; J0665; J1100

== ENCOUNTER 2024-08-10 10:19 | Outpatient (AMB) | payer OTHER, SELFPAY ==
--- NOTE | 2024-08-10 08:32 | MHC.OFFVIS ---
Intake Visit Reasons: Current Smoker Allergies No Known Allergies Allergy (Verified 06/07/24 14:20) HPI HPI Current Smoker: Details: Initial visit for this 69yo smoker with a 60+PYH. Patient started smoking at age 16 for 53 years at 1-1.5ppd. . Denies marijuana use. Denies second hand smoke exposure. Denies exposure to chemicals or substances like asbestos. . Reports family history of lung cancer - brother at 63, and mother. Denies personal history of cancers. Denies chest CT in last year. . Denies recent travel outside the [place]. Denies recent respiratory illness or recent hospitalization for respiratory issues. Reports testing positive for COVID x 2. Admits receiving COVID Vaccine. x 3. . Denies fever, chills, new/worsening cough, hemoptysis, hoarseness or dysphagia. Denies significant chest pain, significant dyspnea or unintentional weight loss. Patient Lung Cancer Screening Questionnaire reviewed with patient by provider. . Shared Decision Making Completed. Patient meets criteria. Discussed in detail with patient, the risk vs benefit of LDCT screening. Patient consents to proceed with scan. Discussed smoking cessation. [facility] Medical History (Updated 08/10/24 @ 10:33 by Flor Melgar PA-C) Nicotine dependence, cigarettes, uncomplicated Hypertension SVT (supraventricular tachycardia) Edema Pressure ulcer Alcohol use disorder Cognitive disorder Rhabdomyolysis Surgical History (Updated 07/12/24 @ 12:08 by Flor Melgar PA-C) History of colonoscopy History of lumbar laminectomy Family History (Reviewed 06/07/24 @ 14:20 by Ashley Narvaez [facility]) Father No problems noted. Mother Lung cancer Family/Other Lung cancer Throat cancer Social History (Updated 08/10/24 @ 10:33 by Flor Melgar PA-C) Household Members: None Housing: Apartment Unable to assess alcohol history related to: Unable to respond Alcohol intake: current Alcohol intake frequency: 3 or more drinks per day Alcohol type: beer Comment: camera not available Patient Tobacco Use Status: Current everyday Tobacco user Tobacco use type: Cigarette Cigarette Packs Per Day: 1 Cigarettes Per Day: 20 Years Smoked: (onset 16yo, 1-1.5ppd x 53yrs, 60+PYH) e-Cigarette/Vaping Use: Never Used Second Hand Smoke Exposure: Yes service: No 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 - Patient meets criteria for LDCT for lung cancer screening purposes and is asymptomatic. - Smoking cessation counseling offered. Patients can always call [phone]. - Will arrange for a LDCT scan of the chest for screening purposes at [facility]. - Risks, benefits, and alternatives were discussed in detail and the patient agrees to proceed. - Risks discussed include but are not limited to: radiation exposure, anxiety during testing and while awaiting results, false negatives, false positives and possibility of additional intervention such as further imaging or surgical procedures for benign disease. - Benefits are obviously detection of lung cancer at an early stage which can lead to improved outcomes. - Discussed the importance of screening program compliance with adherence to yearly LDCT scan as scheduled - or sooner interval scans for personalized screening regimen. - Discussed follow up plan. Our office will send a letter discussing results and if needed set up phone call and office visit based on CT findings. - Patient educated on results categorization and the management decisions for suspicious findings potentially found on the screening LDCT scan. Any patient with a Lung RADS score of 3 or 4 will be reviewed by a multidisciplinary team at [facility] to form a plan of action in regards to scan findings. - If further work up is warranted for a suspicious lung finding this will be followed by the Lung Cancer Screening program in conjunction with the Thoracic Surgery Department at [facility]. - A copy of the office note and LDCT will be sent to the patient's PCP - as well as documentation on any associated further plans of care. - Incidental findings on LDCT are the PCP's responsibility. These findings are indicated with an S finding on the LDCT Assessment. A note discussing the findings will be sent to the PCP who is then responsible for further management. - All questions answered.? Coding Level of Care Code Lung Cancer Screening G0296 Diagnoses Nicotine dependence, cigarettes, uncomplicated F17.210
== END 2024-08-10 10:33 | disposition home or self-care (01) ==
PROVIDERS: PCP Internal Medicine; Visit Provider Physician Assistant Medical
DX: F17.210 Nicotine dependence, cigarettes, uncomplicated (principal)
CPT/HCPCS: G0296

== ENCOUNTER 2024-08-10 10:33 | Outpatient (REF) | payer OTHER, SELFPAY ==
--- NOTE | ~2024-08-10 | CT_ITS ---
EXAMINATION: CT LOW-DOSE SCREENING CHEST WITHOUT CONTRAST CLINICAL INFORMATION: Nicotine dependence, cigarettes, uncomplicated. The patient is a current smoker with a 52 pack-year history of smoking. COMPARISON: Chest x-ray 11/04/2022. CT abdomen 11/17/2022. TECHNIQUE: Multidetector volumetric CT imaging of the chest is performed on a Siemens SOMATOM Definition scanner without contrast using low dose technique. Additional 2D coronal and sagittal reformatted images and axial 3D maximum intensity projection (MIP) images are generated on the CT workstation. This CT examination was performed using dose optimization techniques as appropriate, variously including the following: *Automated exposure control *Adjustment of mA and/or kV according to patient size (this includes techniques or standardized protocols for targeted exams where dose is matched to indication/reason for exam; i.e. extremities or head) *Use of iterative reconstruction technique TOTAL EXAM DLP: 74 mGy-cm. CTDIvol: 1.97 mGy. FINDINGS: PULMONARY NODULES: There is a cluster of new suspicious large masses seen in the right upper lobe with spiculated edges some extending towards the pleural surface and others extending towards the reyna. One of the larger masses is the more central mass measuring 3.1 x 2.2 x 2.9 cm (9:179). There is associated bronchiectasis seen around the reyna and these masses. LUNGS: Lungs bilaterally symmetrically expanded. There is emphysema and bronchial thickening along with a vlad saber-sheath trachea. No effusion or pneumothorax. Central airways patent. MEDIASTINUM: There is a large right-sided superior mediastinal lymph node measuring 3.3 x 2.6 x 3.6 cm (3:22 and 503:366). A large subcarinal lymph node present measuring 4.0 x 3.5 x 4.6 cm (3:31 and 503:412). CORONARY ARTERY CALCIFICATION: Present. THYROID GLAND: Unremarkable to the extent seen. CARDIOVASCULAR STRUCTURES: Aortic and heart size normal. No pericardial effusion. CHEST WALL/AXILLA: Unremarkable. UPPER ABDOMEN: There is an ill-defined mass seen in the region of the head of the pancreas that was not present previously measuring 5.9 x 3.7 cm. This is suboptimally evaluated secondary to lack of oral and IV contrast. No adrenal lesions are seen. OSSEOUS STRUCTURES: There is a large Schmorl's node at the inferior endplate of L1. No gross bony destructive lesions are seen. CT/CT lung screening IMPRESSION: 1. New cluster of large masses in the right upper lobe with associated mediastinal adenopathy. Findings are highly suspicious for malignancy. 2. New ill-defined mass in the region of the head of the pancreas. ASSESSMENT: 1. Lung-RADS Category 4B: Suspicious findings. N/A 2. Lung-RADS Category S: Positive. There are clinically significant or potentially clinically significant findings not related to the lungs requiring further workup. RECOMMENDATION: Tissue sampling is recommended depending on the probability of malignancy and comorbidities. MRCP would be useful for further evaluation of the pancreas to substantiate that a pancreatic mass is indeed present. Patient's physician will be called with these results and when this has occurred, an addendum will be issued. Electronically signed by: Marck Doe MD 09/27/2024 02:53 PM VANDANA
== END 2024-08-10 10:34 | disposition home or self-care (01) ==
LOC: HO.CT 10:33
PROVIDERS: PCP Internal Medicine; Visit Provider Physician Assistant Medical
DX: Z12.2 Encounter for screening for malignant neoplasm of respiratory organs (principal); F17.210 Nicotine dependence, cigarettes, uncomplicated
CPT/HCPCS: 71271; G0296

== ENCOUNTER 2024-10-05 11:12 | Outpatient (REF) | payer OTHER, SELFPAY ==
[2024-10-05 10:18] VITALS: PULSE 81; O2SAT 99
--- OUTSIDE RECORDS SUMMARY | 2024-10-05 11:14 | XMS_ITS ---
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 Name Role Phone Winston Phipps MD Primary Care Provider Wander Fried Unavailable [phone] ALLERGIES No Known Allergies REASON FOR VISIT Patient presents today for a colon screening MEDICATIONS Medication SIG (Take, Route, Fr equency, Duration) Notes Start Date End Date Status Motrin prn Active Lisinopril 10 MG Oral for 90 A ctive SOCIAL HISTORY Tobacco Use: Social History Observation Description Date Details (start date - stop date) Current Smoker NA - NA Sex Assigned At : Social History Observation Description Sex Assigned At Unknown Tobacco Use/Smoking Question Answer Notes Patient is a current smoker How many cigarettes a day do you smoke? 21-30 Alcohol Screen Question Answer Notes Did you have a drink contain ing alcohol in the past year? Yes How often did you have a dri nk containing alcohol in the past year? Monthly or less (1 point) How many drinks did you have on a typical day when you were drinking in the past year? 1 or 2 drinks (0 point) How often did you have 6 or more drinks on one occasion in the past year? Never (0 point) Points 1 Interpretation Negative PROBLEMS Problem Type ICD Code Onset Dates Problem Status W/U Status Risk SNOMED Code Notes Problem Colon cancer screening (Z12.11) Active confirmed Colon cancer screening (621679470) Problem Encounter for other preprocedural examination (Z01.818) Active confirmed Pre-procedure evaluation check (091525890) VITAL SIGNS BMI 24.80 kg/m2 09/25/2024 Blood pressure systolic 00 mm Hg 09/25/20 24 Blood pressure diastolic 00 mm Hg 024 Height 6 ft 1 in in 09/25/2024 Weight 188 lbs 09/25/2024 Encounters Encounter Location Date Provider Diagnosis [facility] [address] [place] [address] 09/25/2024 Wander Vega Colon cancer screeni ng Z12.11 and Encounter for other preprocedural examination Z01.818 ASSESSMENTS Encounter Date Diagnosis Assessment Notes Treatment Notes Treatment Clinical Notes 09/25/2024 Colon cancer screening (ICD-10 - Z12.11) 09/25/2024 Encounter for other preprocedural examination (ICD-10 - Z01.818) PLAN OF TREATMENT Future Test Test Name Order Date COLONOSCOPY 09/25/2024 Next Appt Details Provider Name:Wander Farr Vega , 01/02/2025 11:20:00 AM, [address] [place] [address] , [place], [place], [phone],
--- OUTSIDE RECORDS SUMMARY | 2024-10-05 11:14 | XMS_ITS | Patient Health Record ---
Author Organization [facility] Address [address] [place] [address] Care Team Providers Care Transportation Agent Name Role Phone Winston Phipps MD Primary Care Provider Wander Fried Unavailable [phone] ALLERGIES No Known Allergies REASON FOR REFERRAL No Information MEDICATIONS Medication SIG (Take, Route, Fr equency, [...] many cigarettes a day do you smoke? 21- Alcohol Screen Question Answer Notes Did you [...] screening (Z12.11) Active confirmed Colon cancer screening (762281311) Problem Encounter for other preprocedural examination (Z01.818) Active confirmed Pre-procedure evaluation check (603737994) VITAL SIGNS Blood pressure diastolic 00 mm Hg 09/25/2024 Height 6 ft 1 in in 09/25/2024 Blood pressure systolic 00 mm Hg 09/25/2024 Weight 188 lbs 09/25/2024 BMI 24.80 kg/m2 09/25/2024 Encounters Encounter Location Date Provider Diagnosis [facility] [address] [place] [address] 09/25/2024 Wander Vega Colon cancer screeni ng Z12.11 and Encounter for other preprocedural examination Z01.818 ASSESSMENTS Encounter Date Diagnosis Assessment Notes Treatment Notes Treatment Clinical Notes 09/25/2024 Colon cancer screening (ICD-10 - Z12.11) 09/25/2024 Encounter for other preprocedural examination (ICD-10 - Z01.818) PLAN OF TREATMENT Future Test Test Name Order Date COLONOSCOPY 09/25/2024 Next Appt Details Provider Name:Wander Vega , 01/02/2025 11:20:00 AM, [address] , [place], [place], [phone], Insurance Providers Payer Name Payer Address Payer Phone Subscriber Number Group Number Insured Name Patient Relationship to Insured Coverage Start Date Coverage End Date [facility] [address] [place] [address] [id number] LADONNA HAM Self - patient is the insured MEDICAL (GENERAL) HISTORY Medical History History ICD Code Hypertension Denies [place],DM,CVA,Lung disease,renal dise ase Arthritis Negative screening colonoscopy > [address] Gates Surgical History Surgery Date(Month/Year) Back surgery
--- NOTE | 2024-10-05 11:30 | PFT_ITS ---
Indication COPD and lung meds Spirometry [FEV1 to FVC 44%; FEV1 1.56 L; FVC 3.56 L. there is a significant response to bronchodilators noted. Maximum voluntary ventilation 26% predicted.] Lung Volumes [Total lung capacity 96% predicted; residual volume 161% predicted] Diffusion Capacity [DLCO 66% predicted] Comparisons [None] Interpretation [There is some obstructive ventilatory defect consistent with severe COPD. There is a significant response to bronchodilators noted. Patient also has severe decrease in the maximum voluntary ventilation secondary to deconditioning and also worsening dynamic inspiratory capacity. Lung volumes demonstrate significant air trapping and the patient does have a mild diffusion impairment. Clinical correlation warranted.] MTDD
== END 2024-10-05 11:13 | disposition home or self-care (01) ==
LOC: HO.RESP 11:12
PROVIDERS: PCP Internal Medicine; Visit Provider Physician Assistant Medical
DX: R91.8 Other nonspecific abnormal finding of lung field (principal); F17.210 Nicotine dependence, cigarettes, uncomplicated
CPT/HCPCS: 94010; 94640; 94727; 94729

== ENCOUNTER → 2024-10-05 11:30 | Outpatient (BNV) | payer OTHER, SELFPAY | PROVIDERS: PCP Internal Medicine; Visit Provider Hospitalist | DX: J44.9 Chronic obstructive pulmonary disease, unspecified (principal) | CPT/HCPCS: 94060; 94727; 94729 ==

== ENCOUNTER 2024-10-18 09:45 | Outpatient (AMB) | payer OTHER, SELFPAY ==
--- OUTSIDE RECORDS SUMMARY | 2024-10-18 09:47 | XMS_ITS | Patient Health Record ---
Author Organization [facility] Address [address] [place] [address] Care Team Providers Care Cable Engineer Outside Plant Name Role Phone Winston Phipps MD Primary Care Provider Wander Fried Unavailable [phone] ALLERGIES No Known Allergies REASON FOR REFERRAL [...] screening (Z12.11) Active confirmed Colon cancer screening (148909572) Problem Encounter for other preprocedural examination (Z01.818) Active confirmed Pre-procedure evaluation check (467153369) VITAL SIGNS Blood pressure diastolic 00 mm Hg 09/25/2024 Height 6 ft 1 in in 09/25/2024 Blood pressure systolic 00 mm Hg 09/25/2024 Weight 188 lbs 09/25/2024 BMI 24.80 kg/m2 09/25/2024 Encounters Encounter Location Date Provider Diagnosis [facility] [address] [place] [address] 09/25/2024 Wander Vega Colon cancer screeni ng [...] Name:Wander Vega , 01/02/2025 11:20:00 AM, [address] , [place], [place], [phone], Insurance Providers Payer Name Payer Address Payer Phone Subscriber Number Group Number Insured Name Patient Relationship to Insured Coverage Start Date Coverage End Date [facility] [address] [place] [address] [id number] LADONNA HAM Self - patient is the insured MEDICAL (GENERAL) HISTORY Medical History History ICD Code Hypertension Denies [place],DM,CVA,Lung disease,renal dise ase Arthritis Negative screening colonoscopy > [address] Gates Surgical History Surgery Date(Month/Year) Back surgery
[2024-10-18 09:49] VITALS: BP 160/76; PULSE 85; O2SAT 93; BMI 25.2
--- NOTE | 2024-10-18 09:49 | A.OFFPC_ITS ---
Vital Signs 10/18/24 09:49 Height 6 ft 1 in Weight 191 lb 4 oz BMI 25.2 BP 160/76 H Blood Pressure Location Lt brachial Position Sitting Pulse 85 Pulse Source Pulse Oximeter Pulse Oximetry (%) 93 Oxygen Delivery Method Room Air Intake Visit Reasons: Annual PE - see comments Surgical Technology Instructor Required: No Accompanied by: Self / Same As Patient Allergies No Known Allergies Allergy (Verified 10/18/24 09:54) Tobacco use date assessed: 10/18/24 Fall risk assessment: No Falls in past year Last assessed Fall Risk: 10/18/24 Dental Screening Dental Screen Date: 11/10/23 HPI Annual PE - see comments HPI Details HTN and BPH on rx; compliant; seeing pulmonary and being worked up for lung masses and evidence of metastatic liver lesions PFSH Medical History (Updated 10/18/24 @ 10:24 by Winston Phipps MD) Lymphadenopathy Lung mass Nicotine dependence, cigarettes, uncomplicated Hypertension SVT (supraventricular tachycardia) Edema Pressure ulcer Alcohol use disorder Cognitive disorder Rhabdomyolysis Surgical History (Updated 07/12/24 @ 12:08 by Flor Melgar PA-C) History of colonoscopy History of lumbar laminectomy Family History Father No problems noted. Mother Lung cancer Family/Other Lung cancer Throat cancer Social History (Updated 08/10/24 @ 10:33 by Flor Melgar PA-C) Household Members: None Housing: Apartment Unable to assess alcohol history related to: Unable to respond Alcohol intake: current Alcohol intake frequency: 3 or more drinks per day Alcohol type: beer Comment: camera not available Patient Tobacco Use Status: Current everyday Tobacco user Tobacco use type: Cigarette Cigarette Packs Per Day: 1 Cigarettes Per Day: 20 Years Smoked: (onset 16yo, 1-1.5ppd x 53yrs, 60+PYH) e-Cigarette/Vaping Use: Never Used Second Hand Smoke Exposure: Yes service: No 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 1. Little interest or pleasure in doing things: not at all 2. Feeling down, depressed, or hopeless: not at all 3. Trouble falling or staying asleep, or sleeping too much: not at all 4. Feeling tired or having little energy: not at all 5. Poor appetite or overeating: not at all 6. Feeling bad about yourself - or that you are a failure or have let yourself or your family down: not at all 7. Trouble concentrating on things, such as reading the newspaper or watching television: not at all 8. Moving or speaking so slowly that other people could have noticed. Or the opposite - being so fidgety or restless that you have been moving around a lot more than usual: not at all 9. Thoughts that you would be better off or of hurting yourself in some way: not at all Total score: 0 Depression Screening Interpretation: Negative Depression Screening Done: Yes 46052 - PHQ-9 Billing: Yes Source: Developed by Drs. Wander Fox, Mallorie Reed, Dwight Vernon and colleagues, with an educational gabbi from [employer]. Thrive Questionnaire Date Thrive assessed: 10/18/24 I am a: Patient What is your living situation today?: I have a steady place to live Within the past 12 months, did the food you bought not last and you didn't have the money to get more?: I choose not to answer this question Within the past 12 months, did you worry whether your food would run out before you got money to buy more?: I choose not to answer this question Do you have trouble paying for medicines?: I choose not to answer this question Do you have trouble getting transportation to medical appointments?: No Do you have trouble paying your heating and electricity bill?: No Do you have trouble taking care of your child, family member or friend?: I choose not to answer this question Do you have trouble with day-to-day activities such as bathing, preparing meals, shopping, managing finances, etc.?: I choose not to answer this question Are you currently unemployed and looking for a job?: I choose not to answer this question Are you interested in more education?: I choose not to answer this question Please select the resources that you would like help with: None Currently or been in a relationship where the following occur: I choose not to answer THRIVE Score: 0 AUDIT C Alcohol Use Questionnaire (AUDIT-C) 1. How often do you have a drink containing alcohol?: 4 or more times a week 2. How many drinks containing alcohol do you have on a typical day when you are drinking?: 3 or 4 3. How often do you have six or more drinks on one occasion?: Never Total Score: 5 TATIANA-7 AMB Questionnaire TATIANA-7 Date TATIANA - 7 assessed: 10/18/24 Feeling nervous, anxious, or on edge: 0 = Not at all Not being able to stop or control worryin = Not at all Worrying too much about different things: 0 = Not at all Trouble relaxin = Not at all Being so restless that it is hard to sit still: 0 = Not at all Becoming easily annoyed or irritable: 0 = Not at all Feeling afraid as if something awful might happen: 0 = Not at all Total TATIANA-7 score (0-4 normal; 5-9 mild; 10-14 moderate; 15-21 severe): 0 Source: Developed by Drs. Wander Fox, Mallorie Reed, Dwight Vernon and colleagues, with an educational gabbi from [employer]. TATIANA-7 Assessment Billing TATIANA-7 Assessment Tool: TATIANA-7 Assessment 25118 Review of Systems Const Denies chills, Denies fatigue, Denies headache(s) and Denies weight loss Eyes Denies change in vision, Denies diplopia and Denies eye pain ENT Denies vertigo, Denies dizziness, Denies headache(s) and Denies nasal discharge Card Denies chest pain, Denies rapid heart rate and Denies dyspnea on exertion Resp Denies chest congestion, Denies cough, Denies pain with cough and Denies dyspnea on exertion GI Denies abdominal pain, Denies hematochezia and Denies change in bowel habits Musc Denies myalgias, Denies arthralgias and Denies joint swelling Skin/Breast Denies lesions and Denies unusual bruising Neuro Denies vertigo, Denies dizziness, Denies headache(s) and Denies focal weakness Endo Denies fatigue Physical exam (Primary Care) Vital Signs: Last Vital Signs Pulse 85 10/18/24 09:49 BP 160/76 H 10/18/24 09:49 Pulse Ox 93 10/18/24 09:49 Oxygen Delivery Method Room Air 10/18/24 09:49 BMI result Body Mass Index 25.2 Tobacco/Smoking Status: Tobacco use Status Tobacco use date assessed 10/18/24 10/18/24 09:55 Patient Tobacco Use Status Current everyday Tobacco 10/18/24 09:49 Tobacco use type Cigarette 10/18/24 09:49 e-Cigarette/Vaping Use Never Used 10/18/24 09:49 PHQ-9: PHQ-9 Score PHQ-9: Total score 0 10/18/24 09:55 Depression Screening Interpretation: Negative Thrive Assessment: Date of Thrive Assessment Date Thrive assessed 10/18/24 10/18/24 09:55 Currently or been in a relationship where the following occur: I choose not to answer Const General: cooperative, healthy appearing and no acute distress Orientation/consciousness: oriented to person, oriented to place and oriented to time HENMT Head: Yes normal to inspection, Yes normocephalic and Yes atraumatic Mouth: Normal oral and palatal mucosa present and tongue normal Throat: Yes posterior oropharynx normal and Yes uvula midline Eyes General: appearance normal, both eyes and all related structures Neck Neck: Yes normal visual inspection, Yes full ROM and Yes no lymphadenopathy Thyroid: Thyroid normal Carotids: normal carotid upstroke Chest Chest palpation & inspection: normal inspection of the chest Resp Effort & Inspection: normal respiratory effort and able to speak in complete sentences Auscultation: clear to auscultation bilaterally Cardio Jugular venous distension: no JVD Palpation: normal PMI Rate: regular rate Rhythm: regular rhythm Heart sounds: S1 normal heart sound present and S2 normal heart sound present GI Inspection: Yes normal to inspection Palpation (GI): Soft to palpation and No hepatosplenomegaly present Auscultation: normal bowel sounds General: Yes no CVA tenderness Back/Spine/Pelvis Back: no CVA tenderness Skin General skin exam: no rashes or lesions noted Neuro General: oriented to person, oriented to place and oriented to time Extrem General: Yes normal to inspection and Yes full ROM Coding Level of Care Code Est Pt Prev Care >65y(23712) Diagnoses Physical exam Z00.00 Lung mass R91.8 Hypertension I10 BPH (benign prostatic hyperplasia) N40.0 Additional Codes TATIANA-7 Assessment Billing - TATIANA-7 Assessment Tool: TATIANA-7 Assessment 03244 ([id number]) PHQ-9 - 64172 - PHQ-9 Billing: Yes ([id number]) Assessment & Plan Assessment & Plan (1) Physical exam: Code(s): Z00.00 - Encounter for general adult medical examination without abnormal findings Category: Medical Plan: stable at present (2) Lung mass: Code(s): R91.8 - Other nonspecific abnormal finding of lung field Category: Medical Plan: w/u per pulmonary (3) Hypertension: Code(s): I10 - Essential (primary) hypertension Category: Medical Plan: stable; same rx (4) BPH (benign prostatic hyperplasia): Code(s): N40.0 - Benign prostatic hyperplasia without lower urinary tract symptoms Category: Medical Plan: stable; same rx
== END 2024-10-18 10:05 | disposition home or self-care (01) ==
PROVIDERS: PCP Internal Medicine; Visit Provider Internal Medicine
DX: Z00.00 Encounter for general adult medical examination without abnormal findings (principal); R91.8 Other nonspecific abnormal finding of lung field; I10 Essential (primary) hypertension; N40.0 Benign prostatic hyperplasia without lower urinary tract symptoms

== ENCOUNTER → 2024-10-18 09:45 | Outpatient (BNVA) | payer OTHER, SELFPAY | PROVIDERS: PCP Internal Medicine; Visit Provider Internal Medicine | DX: Z00.00 Encounter for general adult medical examination without abnormal findings (principal); R91.8 Other nonspecific abnormal finding of lung field; I10 Essential (primary) hypertension; N40.0 Benign prostatic hyperplasia without lower urinary tract symptoms | CPT/HCPCS: 96127 ==

== ENCOUNTER 2024-10-25 12:49 | Outpatient (AMB) | payer OTHER, SELFPAY ==
--- NOTE | 2024-10-25 12:56 | MHC.OFFVIS ---
Vital Signs 10/25/24 12:57 Height 6 ft 1 in BP 142/90 H Blood Pressure Location Rt brachial Position Sitting Pulse 83 Pulse Source Pulse Oximeter Pulse Oximetry (%) 99 Oxygen Delivery Method Room Air Intake Visit Reasons: S/p PFT/PET Allergies No Known Allergies Allergy (Verified 10/25/24 13:01) HPI Comments Details: The patient is here for pulmonary evaluation. The patient is a 69-year-old gentleman who is an active smoker who has been participating in the lung cancer screening program. He had initial CT scan back in July 2024. Unfortunately because of radiology limitations the patient did not get a final read until 10/12/2024. Demonstrated that he had 2 large masses in the right upper lobe area and also significant lymphadenopathy. In addition to the large mass in the pancreas. Therefore the patient was ordered to have a PET scan. Did call him at that time to let him know. He did undergo the PET scan. It demonstrates significant FDG activity in both the lungs the pancreas and also the liver. Therefore based on the findings I did talk to Radiology back in mid September and the thought was to go after the liver biopsy because of his significant respiratory disease in to minimize risk. Therefore the patient was ordered to have a liver biopsy. Although has not been scheduled as of yet. Therefore I did call Radiology and with the help of the administration was able to get a day for biopsy TuesdayOctober 29 at 13:00. Once we have those results we can. The patient understands that he may have 1 process that is advanced or to potential processes because of the pancreatic lesion and also the lung lesion and is not still clear what is the actual process going on the liver. But most likely it is metastatic and that will help us clear that. If the liver lesions are pancreatic then still would have to consider biopsying the pulmonary lesion or the mediastinal lymphadenopathy to see that is a lung primary as well. Therefore will continue to follow closely and try to expedite his care as part she is possible this time. In the meantime he did have PFTs demonstrating a severe obstruction. Unless the him on Anoro. The patient is interested in quitting smoking. He does have the patch done home which she can start. [facility] Medical History (Updated 10/25/24 @ 20:02 by Josemanuel Cesar MD) COPD (chronic obstructive pulmonary disease) Pancreatic mass Lymphadenopathy Lung mass Nicotine dependence, cigarettes, uncomplicated Hypertension SVT (supraventricular tachycardia) Edema Pressure ulcer Alcohol use disorder Cognitive disorder Rhabdomyolysis Surgical History (Updated 07/12/24 @ 12:08 by Flor Melgar PA-C) History of colonoscopy History of lumbar laminectomy Family History Father No problems noted. 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 Cognitive needs: No Hearing needs: No Vision needs: Yes Review of Systems Const Denies chills, Denies fatigue, Denies headache(s) and Denies weight loss Eyes Denies change in vision, Denies diplopia and Denies eye pain ENT Denies vertigo, Denies dizziness, Denies headache(s) and Denies nasal discharge Card Denies chest pain, Denies rapid heart rate and Denies dyspnea on exertion Resp Denies chest congestion, Reports cough, Denies pain with cough and Denies dyspnea on exertion GI Denies abdominal pain, Denies hematochezia and Denies change in bowel habits Musc Denies myalgias, Denies arthralgias and Denies joint swelling Skin/Breast Denies lesions and Denies unusual bruising Neuro Denies vertigo, Denies dizziness, Denies headache(s) and Denies focal weakness Endo Denies fatigue Physical Exam Vital Signs: Last Vital Signs Pulse 83 10/25/24 12:57 BP 142/90 H 10/25/24 12:57 Pulse Ox 99 10/25/24 12:57 Oxygen Delivery Method Room Air 10/25/24 12:57 Const General: comfortable HEENT Head: Yes normocephalic Neck Neck: Yes supple Chest Chest palpation & inspection: normal inspection of the chest Resp Effort & Inspection: normal respiratory effort Auscultation: diminished lung sounds Cardio Heart sounds: S1 normal heart sound present and S2 normal heart sound present GI Palpation (GI): Soft to palpation Skin General skin exam: no rashes or lesions noted Extrem General: No cyanosis Results Reviewed Results Reviewed: personally reviewed CT chest, PET, PFTs Assessment & Plan Assessment & Plan (1) Hepatic lesion: Code(s): K76.9 - Liver disease, unspecified Category: Medical (2) Lung mass: Code(s): R91.8 - Other nonspecific abnormal finding of lung field Category: Medical (3) Pancreatic mass: Code(s): K86.89 - Other specified diseases of pancreas Category: Medical (4) COPD (chronic obstructive pulmonary disease): Code(s): J44.9 - Chronic obstructive pulmonary disease, unspecified Category: Medical Qualifiers: COPD type: chronic bronchitis Chronic bronchitis type: simple Qualified Code(s): J41.0 - Simple chronic bronchitis (5) Nicotine dependence, cigarettes, uncomplicated: Comment: (onset 16yo, 1-1.5ppd x 53yrs, 60+PYH+fam hx lung ca - brother/mom) Code(s): F17.210 - Nicotine dependence, cigarettes, uncomplicated Category: Medical Plan start Anoro Daily US guided Liver biopsy this Tuesday10/29/2024 at 1pm May need to consider EBUS/bronchosocpy to address second primary nicotine patch, smoking cessation F/U 2-3 weeks Orders: Orders US biopsy liver Today K76.9 - Liver disease, unspecified Medications: New umeclidinium-vilanterol 62.5-25 mcg/actuation (Anoro Ellipta) 1 inh inhalation DAILY 60 ea 11RF J44.89 - Other specified chronic obstructive pulmonary disease Coding Level of Care Code New Pt Level 5 (11154) Diagnoses Hepatic lesion K76.9 Lung mass R91.8 Pancreatic mass K86.89 Simple chronic bronchitis J41.0 COPD type: chronic bronchitis Chronic bronchitis type: simple Nicotine dependence, cigarettes, uncomplicated F17.210 Time Spent (min) 60
[2024-10-25 12:57] VITALS: BP 142/90; PULSE 83; O2SAT 99
--- OUTSIDE RECORDS SUMMARY | 2024-10-25 13:45 | XMS_ITS | Patient Health Record ---
Author Organization [facility] Address [address] [place] [address] Care Team Providers Care Heavy Duty Truck Mechanic Name Role Phone Winston Phipps MD Primary Care Provider Wander Fried Unavailable [phone] ALLERGIES No Known Allergies REASON FOR REFERRAL [...] screening (Z12.11) Active confirmed Colon cancer screening (696455854) Problem Encounter for other preprocedural examination (Z01.818) Active confirmed Pre-procedure evaluation check ([id number]) VITAL SIGNS Blood pressure diastolic 00 mm Hg 09/25/2024 Height 6 ft 1 in in 09/25/2024 Blood pressure systolic 00 mm Hg 09/25/2024 Weight 188 lbs 09/25/2024 BMI 24.80 kg/m2 09/25/2024 Encounters Encounter Location Date Provider Diagnosis [facility] [address] [place] [address] 09/25/2024 Wander Vega Colon cancer screeni ng [...] Name:Wander Vega , 01/02/2025 11:20:00 AM, [address] , [place], [place], [phone], Insurance Providers Payer Name Payer Address Payer Phone Subscriber Number Group Number Insured Name Patient Relationship to Insured Coverage Start Date Coverage End Date [facility] [id number] [place] [address] [id number] LADONNA HAM Self - patient is the insured MEDICAL (GENERAL) HISTORY Medical History History ICD Code Hypertension Denies [place],DM,CVA,Lung disease,renal dise ase Arthritis Negative screening colonoscopy > [address] Gates Surgical History Surgery Date(Month/Year) Back surgery
== END 2024-10-25 13:54 | disposition home or self-care (01) ==
PROVIDERS: PCP Internal Medicine; Visit Provider Hospitalist
DX: J41.0 Simple chronic bronchitis (principal); R91.8 Other nonspecific abnormal finding of lung field; F17.210 Nicotine dependence, cigarettes, uncomplicated; K76.9 Liver disease, unspecified; K86.89 Other specified diseases of pancreas
CPT/HCPCS: 99215

== ENCOUNTER → 2024-10-25 12:49 | Outpatient (BNVA) | payer OTHER, SELFPAY | PROVIDERS: PCP Internal Medicine; Visit Provider Hospitalist ==

== ENCOUNTER 2024-10-29 08:42 | Day surgery (SDC) | payer MEDICARE, SELFPAY ==
[2024-10-29] VITALS (22 sets, daily range): BP systolic 95–153; BP diastolic 45–88; PULSE 68–87; RESP 14–18; TEMP 36.7–37; O2SAT 96–100; BMI 25.3
--- NOTE | ~2024-10-29 | CT_ITS ---
69-year-old man with a right lobe liver mass on PET scan, in addition to a large pancreatic mass and lung mass. The lesion was not able to be visualized under ultrasound, therefore, the procedure was moved to CT scan. PROCEDURES: 1. Limited preprocedure CT of the abdomen. Permanent images saved in PACS. 2. CT-guided biopsy of the right lobe liver mass.. 3. Limited postprocedure CT of the abdomen. Permanent images saved in PACS. CLINICIANS: Inocente Marin PA-C MEDICATIONS: -Versed 1.5 mg, Fentanyl 75 mcg, and lidocaine 1% 10 mL SQ -Antibiotics: None -For additional details, please see nursing flowsheet. COMPLICATIONS: None ESTIMATED BLOOD LOSS: < 5 ml CONTRAST: 85 cc Omnipaque 350. SPECIMENS: 4 x 20 g cores were sent for pathology MODERATE SEDATION TIME: 27 min PROCEDURE NOTE: The procedure, risks, benefits, and alternatives were carefully explained to the patient and written informed consent was obtained. The patient was placed supine on the CT table. A timeout was performed. A limited CT of the abdomen with IV contrast was performed to the right lobe liver mass and choose appropriate needle entry and trajectory. The patient was prepped and draped in usual sterile fashion. The skin and deeper soft tissues were anesthetized with lidocaine. Under CT guidance, a 19-gauge trocar needle was advanced to the right lobe liver mass. A 20 gauge biopsy device was inserted through the trocar needle and advanced into the mass. A total of 4 cores were performed. The specimens were placed in formalin and sent to pathology. A total of 2 Gelfoam torpedoes were then administered through the trocar needle into the biopsy tract and at the level of the liver capsule. The needle was removed. A dry dressing was applied and secured with Tegaderm. A limited postprocedure CT of the chest was performed, which did not demonstrate any pneumothorax or bleeding. There were no immediate complications. The patient was stable after the procedure and was transferred to the post anesthesia care unit. The procedure was done under moderate sedation with a dedicated nurse for monitoring of vital signs. CT/CT biopsy liver Impression: CT-guided right lobe liver mass biopsy. This procedure was performed by Inocente Marin PA-C and supervised by Dr. Kenney. Electronically signed by: Nacho Chatterjee MD 11/07/2024 05:26 PM [facility]
--- NOTE | ~2024-10-29 | US_ITS ---
EXAMINATION: US ABDOMEN LIMITED HISTORY: K76.9 - Liver disease, unspecified COMPARISON: Correlation is made with an outside PET/CT scan dated 10/15/1944. FINDINGS: Sonographic examination of the liver was performed to localize a mass in the right lobe for possible ultrasound-guided biopsy. The mass is not identified. US/US abdomen limited IMPRESSION: The liver mass noted on outside PET/CT scan is not identified by ultrasound. The patient will be scheduled for a targeted liver biopsy under CT guidance. Electronically signed by: Wander Toscano MD 10/29/2024 12:05 PM [facility]
--- OUTSIDE RECORDS SUMMARY | 2024-10-29 09:10 | XMS_ITS ---
Author Organization [facility] Address [address] [place] [address] Care Team Providers Care Reexaminer Name Role Phone Winston Phipps MD Primary Care Provider Wander Fried Unavailable [phone] ALLERGIES No Known Allergies REASON FOR VISIT [...] screening (Z12.11) Active confirmed Colon cancer screening ([id number]) Problem Encounter for other preprocedural examination (Z01.818) Active confirmed Pre-procedure evaluation check (221610407) VITAL SIGNS BMI 24.80 kg/m2 09/25/2024 Blood pressure systolic 00 mm Hg 09/25/20 24 Blood pressure diastolic 00 mm Hg 024 Height 6 ft 1 in in 09/25/2024 Weight 188 lbs 09/25/2024 Encounters Encounter Location Date Provider Diagnosis [facility] [address] [place] [address] 09/25/2024 Wander Vega Colon cancer screeni ng Z12.11 and Encounter for other preprocedural examination Z01.818 ASSESSMENTS Encounter Date Diagnosis Assessment Notes Treatment Notes Treatment Clinical Notes 09/25/2024 Colon cancer screening (ICD-10 - Z12.11) 09/25/2024 Encounter for other preprocedural examination (ICD-10 - Z01.818) PLAN OF TREATMENT Future Test Test Name Order Date COLONOSCOPY 09/25/2024 Next Appt Details Follow Up: prn, Reason: Provider Name:Wander Vega , 01/02/2025 11:20:00 AM, [address] [place] [address] , [place], [place], [phone], Progress Notes * Examination Category Sub-Category Detail Notes General Examination GENERAL APPEARANCE: pleasant , well nourished, well developed, in no acute distress HEAD: EYES: sclera non-icteric EARS: NOSE: THROAT: NECK/THYROID: no cervical lymphade nopathy, neck supple HEART: S1, S2 normal CHEST: LUNGS: clear to auscultatio n bilaterally ABDOMEN: normal bowel sounds, no guarding or rigidity, no guarding or rigidity, no masses palpable, soft, nontender, nondistended NEUROLOGIC: alert and oriented SKIN: nonjaundiced, no spi micky angiomata EXTREMITIES: no edema PERIPHERAL PULSES: BACK: BREASTS: MUSCULOSKELETAL: MALE GENITOURINARY: LYMPH NODES: RECTAL EXAM: FEMALE GENITOURINARY: ORAL CAVITY: mucosa moist
--- OUTSIDE RECORDS SUMMARY | 2024-10-29 09:10 | XMS_ITS | Patient Health Record ---
Author Organization [facility] Address [address] [place] [address] Care Team Providers Care Tariff Counsel Name Role Phone Winston Phipps MD Primary Care Provider Wander Fried Unavailable [phone] ALLERGIES No Known Allergies REASON FOR REFERRAL [...] screening (Z12.11) Active confirmed Colon cancer screening ([id number]) Problem Encounter for other preprocedural examination (Z01.818) Active confirmed Pre-procedure evaluation check ([id number]) VITAL SIGNS Blood pressure diastolic 00 mm Hg 09/25/2024 Height 6 ft 1 in in 09/25/2024 Blood pressure systolic 00 mm Hg 09/25/2024 Weight 188 lbs 09/25/2024 BMI 24.80 kg/m2 09/25/2024 Encounters Encounter Location Date Provider Diagnosis [facility] [address] [place] [address] 09/25/2024 Wander Vega Colon cancer screeni ng [...] Name:Wander Vega , 01/02/2025 11:20:00 AM, [address] , [place], [place], [phone], Insurance Providers Payer Name Payer Address Payer Phone Subscriber Number Group Number Insured Name Patient Relationship to Insured Coverage Start Date Coverage End Date [facility] [address] [place] [address] [id number] LADONNA HAM Self - patient is the insured MEDICAL (GENERAL) HISTORY Medical History History ICD Code Hypertension Denies [place],DM,CVA,Lung disease,renal dise ase Arthritis Negative screening colonoscopy > [address] Gates Surgical History Surgery Date(Month/Year) Back surgery
[2024-10-29 09:54] LABS: MANUAL DIFF FLAG NO
[2024-10-29 09:55] LABS: Basophils Percent Auto 0.4 % (0-2); Eosinophils Absolute Auto 0.1 X10*3/uL (0.0-0.4); Eosinophils Percent Auto 1.1 % (0-4); Hematocrit 39.2 % (42.0-52.0); Hemoglobin 13.8 g/dl (14.0-18.0); Imm Gran Abs Auto 0.05 X10*3/uL (0.00-0.03); Imm Gran Pct Auto 0.6 % (0.0-0.4); Lymphocytes Absolute Auto 1.2 X10*3/uL (1.2-4.9); Lymphocytes Percent Auto 15.5 % (20-40); Mean Corpuscular HGB Conc 35.2 g/dl (31.0-36.0); Mean Corpuscular Hemoglobin 30.8 pg (27.0-33.0); Mean Corpuscular Volume 87.5 fL (80.0-98.0); Mean Platelet Volume 8.7 fL (9.4-12.4); Monocytes Absolute Auto 0.7 X10*3/uL (0.1-1.2); Monocytes Percent Auto 8.6 % (2-11); Neutrophils Absolute Auto 5.8 x10*3/uL (2.0-8.3); Neutrophils Percent Auto 73.8 % (45-73); Platelet Count 324 X10*3/uL (160-400); Red Blood Count 4.48 X10*6/uL (4.60-5.80); Red Cell Distribution Width 13.2 % (11.0-16.0); White Blood Count 7.9 X10*3/uL (4.8-10.8)
[2024-10-29 10:02] LABS: Prothrombin Time 11.5 SEC (10.9-12.4)
[2024-10-29 10:05] LABS: Partial Thromboplastin Time 35.6 SEC (26.0-36.8)
--- NOTE | 2024-10-29 10:34 | MHC.SHP ---
Pre-Procedural Eval Section A - 24 Hr Update-Section A only Date of Service: 10/29/24 Section B - Complete if H&P > 30 days Chief Complaint: LIVER DISEASE,ABN FINDING OF LUNGFIELD Details of Present Illness: 69 y/o man with liver masses in addition to a large pancreatic mass and lung mass. Relevant Family History (Specify if Yes): No Relevant Social History: Alcohol Use (1 ppd, occasional beer ) Present Medications: see Short Stay Collaborative assessment Medical History: Significant History History of Previous Operations: Relevant previous surgery/procedure and date(s) Allergies: Allergies Allergy/AdvReac Type Severity Reaction Status Date / Time No Known Allergies Allergy Verified 10/29/24 09:30 Review of Systems Sugical H&P ROS: Negative: Constitution, Cardiovascular, Respiratory and Gastrointestinal Exam Surgical H&P Exam: Normal: Heart, Normal: Lungs (CTAB), Normal: Skin and Normal: Neurological and Significant Findings: Abdomen (soft, ttp in deep mid abdomen) Plan 69 y/o man with liver masses. Unknown primary (pancreatic vs lung) -Liver mass biopsy Time Spent With Patient Time: Total time managing care of this patient today ____ minutes.
--- NOTE | 2024-10-29 11:06 | PC.NURSE ---
Update: Liver Bx Inocente HOANG unable to see a good site of the liver so he wants to do the bx in CT scan. Awaiting for Ct scan to be avaiable.
[2024-10-29] MEDS: Midazolam HCl 5 MG/ML VIAL 1 MG IVPUSH (11:30)
[2024-10-29] MEDS: fentaNYL citrate/PF 100 MCG/2 ML VIAL 50 MCG IVPUSH (11:31)
[2024-10-29] MEDS: fentaNYL citrate/PF 100 MCG/2 ML VIAL 25 MCG IVPUSH (11:37)
[2024-10-29] MEDS: Midazolam HCl 5 MG/ML VIAL IVPUSH (11:37)
[2024-10-29] MEDS: iohexoL 350 MG/ML 75 ML INFUS..BTL 85 ML IV (12:15)
[2024-10-30 16:18] LABS: Creatinine POC 1.1 mg/dL (0.5-1.4); GFR POC > 60
== END 2024-10-29 14:33 | disposition home or self-care (01) ==
PROVIDERS: Physician Assistant Surgical; PCP Internal Medicine; Visit Provider Hospitalist
DX: C78.7 Secondary malignant neoplasm of liver and intrahepatic bile duct (principal); C80.1 Malignant (primary) neoplasm, unspecified; R91.8 Other nonspecific abnormal finding of lung field; K86.9 Disease of pancreas, unspecified; R59.1 Generalized enlarged lymph nodes; J41.0 Simple chronic bronchitis; I10 Essential (primary) hypertension; I47.10 Supraventricular tachycardia, unspecified; M62.82 Rhabdomyolysis; R60.9 Edema, unspecified; R41.9 Unspecified symptoms and signs involving cognitive functions and awareness; L89.90 Pressure ulcer of unspecified site, unspecified stage; M96.1 Postlaminectomy syndrome, not elsewhere classified; F10.90 Alcohol use, unspecified, uncomplicated; F17.210 Nicotine dependence, cigarettes, uncomplicated
CPT/HCPCS: 36415; 47000; 76705; 77012; 82565; 85025; 85610; 85730; 86850; 86900; 86901; 88307; 88313; 88341; 88342; 99152; 99153; J0665; J2003; J2250; J2310; J3010

== ENCOUNTER → 2024-10-29 10:09 | Outpatient (BNV) | payer MEDICARE, SELFPAY | PROVIDERS: PCP Internal Medicine; Visit Provider Radiology Diagnostic Radiology | DX: K76.9 Liver disease, unspecified (principal) | CPT/HCPCS: 76705 ==

== ENCOUNTER → 2024-11-07 14:20 | Outpatient (BNVA) | payer MEDICARE, SELFPAY | PROVIDERS: PCP Internal Medicine ==

== ENCOUNTER → 2024-11-14 09:52 | Day surgery (SDC) | payer MEDICARE, SELFPAY ==
--- NOTE | 2024-11-12 15:10 | HO.ANESPROP2 ---
Documented by User: Lizzy Feldman NP 11/12/24 15:19 HPI - Anesthesia Eval Consult details Narrative: 69yo M for Endoscopic Bronchial Ultrasound Active smoker. Lung CA screening CT showed 2 large pulmo mass, pancreatic mass, liver mass. [facility] Active Problems Active Problems: All Active Problems Lung cancer (Acute) COPD (chronic obstructive pulmonary disease) (Acute) Pancreatic mass (Acute) BPH (benign prostatic hyperplasia) (Acute) Physical exam (Acute) Hepatic lesion (Acute) Lymphadenopathy (Acute) Lung mass (Acute) Nicotine dependence, cigarettes, uncomplicated (Acute) Alcoholism (Acute) Hypertension (Acute) Low back pain (Acute) Knee pain (Acute) Wrist pain, right (Acute) Primary osteoarthritis of right knee (Acute) Past Medical History Medical History Lung cancer COPD (chronic obstructive pulmonary disease) Pancreatic mass Lymphadenopathy Lung mass Nicotine dependence, cigarettes, uncomplicated Hypertension SVT (supraventricular tachycardia) Edema Pressure ulcer Alcohol use disorder Cognitive disorder Rhabdomyolysis Family History Family History Father No problems noted. Mother Lung cancer Family/Other Lung cancer Throat cancer Surgical History Surgical History History of colonoscopy History of lumbar laminectomy Social History Social History Household Members: None Housing: Apartment Are you a primary home care provider to a significant other at home: No Do you presently have visiting nurse or other home services: No Unable to assess alcohol history related to: Unable to respond Alcohol intake: current Alcohol intake frequency: 3 or more drinks per day Alcohol type: beer Comment: camera not available Patient Tobacco Use Status: Current everyday Tobacco user Tobacco use type: Cigarette Cigarette Packs Per Day: 0.5 Cigarettes Per Day: 10.0 Years Smoked: (onset 16yo, 1-1.5ppd x 53yrs, 60+PYH) e-Cigarette/Vaping Use: Never Used Second Hand Smoke Exposure: Yes Use of substances other than those prescribed or required for medical reasons: No Are you DNR?: No Advance Directives: No Advance Directives Information Provided: Yes service: No 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 Cognitive needs: No Hearing needs: No Vision needs: Yes Meds Allergies Allergy/AdvReac Type Severity Reaction Status Date / Time No Known Allergies Allergy Verified 10/29/24 09:30 Exam Pertinent Lab Results Pertinent Lab Results: Laboratory Tests 10/29/24 09:43 WBC 7.9 Hgb 13.8 L Hct 39.2 L Plt Count 324 Assessment and Plan Assessment Anesthesia Assessment: Chart Reviewed Documented by User: Edith Redmond MD 11/14/24 12:59 PMFSH Past Medical History Medical History Lung cancer COPD (chronic obstructive pulmonary disease) Pancreatic mass Lymphadenopathy Lung mass Nicotine dependence, cigarettes, uncomplicated Hypertension SVT (supraventricular tachycardia) Edema Pressure ulcer Alcohol use disorder Cognitive disorder Rhabdomyolysis Family History Family History Father No problems noted. Mother Lung cancer Family/Other Lung cancer Throat cancer Family history of problems with anesthesia: No Surgical History Surgical History History of colonoscopy History of lumbar laminectomy History of Problems with Anesthesia: No Social History Social History Household Members: None Housing: Apartment Are you a primary home care provider to a significant other at home: No Do you presently have visiting nurse or other home services: No Unable to assess alcohol history related to: Unable to respond Alcohol intake: current Alcohol intake frequency: 3 or more drinks per day Alcohol type: beer Comment: camera not available Patient Tobacco Use Status: Current everyday Tobacco user Tobacco use type: Cigarette Cigarette Packs Per Day: 0.5 Cigarettes Per Day: 10.0 Years Smoked: (onset 16yo, 1-1.5ppd x 53yrs, 60+PYH) e-Cigarette/Vaping Use: Never Used Second Hand Smoke Exposure: Yes Use of substances other than those prescribed or required for medical reasons: No Are you DNR?: No Advance Directives: No Advance Directives Information Provided: Yes service: No 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 Cognitive needs: No Hearing needs: No Vision needs: Yes Meds Allergies Allergy/AdvReac Type Severity Reaction Status Date / Time No Known Allergies Allergy Verified 10/29/24 09:30 Exam Airway Mallampati Class: II TM Dist: >3cm Neck ROM: Full Heart: rrr Lungs: cta Assessment and Plan Assessment Anesthesia Assessment: Anesthesia Plan Discussed Final Anesthetic Review Family History of Problems with Anesthesia: No History of Problems with Anesthesia: No NPO: Yes ASA Class: III Final Preanesthetic Review: No Changes in Pt Med Stat, Meds/Allgs Chart Reviewed, Consent Obtained/Reviewed and Anes Risks/Benef Reviewed Patient Risk: Intermediate Procedure Risk: Low Anesthetic Plan Anesthetic Plan: GA Disposition: Standard PACU
--- NOTE | 2024-11-14 10:39 | MHC.SHP ---
Pre-Procedural Eval Section A - 24 Hr Update-Section A only Date of Service: 11/14/24 The patient is an INPATIENT: No Changes since office visit: No Cold of Flu in the past 2 weeks, No New Medical Problems, No Changes in Medication and No Patient answered all questions The patient has been examined within 24 hours of the surgical procedure. The History & Physical has been completed within 30 days and I have reviewed it.: Yes Section B - Complete if H&P > 30 days Chief Complaint: Localized enlarged lymph nodes Relevant Family History (Specify if Yes): No Relevant Social History: Tobacco Use Present Medications: see Short Stay Collaborative assessment History of Previous Operations: No relevant previous surgery Allergies: Allergies Allergy/AdvReac Type Severity Reaction Status Date / Time No Known Allergies Allergy Verified 10/29/24 09:30 Review of Systems Sugical H&P ROS: Negative: Constitution, Cardiovascular, Respiratory, Neurological, Psychiatric, Hem-Onc and Allergic/Immunologic Exam Surgical H&P Exam: Normal: HEENT, Normal: Heart, Normal: Lungs, Normal: Extremities, Normal: Abdomen, Normal: Skin and Normal: Neurological Plan Diagnosis/Plan: Change (plan for EBUS to sample lymphadenopathy and bronchoscopy to sample lung mass) I have reviewed the history and physical and performed a pertinent physical examination on my patient. No changes have occurred unless specified. Time Spent With Patient Time: Total time managing care of this patient today ____ minutes.
--- OUTSIDE RECORDS SUMMARY | 2024-11-14 10:46 | XMS_ITS | Clinical Summary ---
Author Organization [facility] Address [address] [place] [address] Phone Care Team Providers Care Nipple Machine Operator Name Role Phone Physician, No Pcp Primary Care Provider Unavaila ble Encounters Date Type Department Care Team Description 10/10/2024 10:26 AM EST - 10/10/2024 11:59 PM EST Hospital Encounter [facility] PET Scan [address] [place] [address] Other nonspecific abnormal finding of lung field; Generalized enlarged lymph nodes Discharge Disposition: Home or Self Care from Last 3 Months Social History Tobacco Use Types Packs/Day Years Used Date Smoking Tobacco: Never Assessed Sex and Gender Information Value Date Recorded Sex Assigned at Not on file Gender Identity Not on file Sexual Orientation Not on file Job Start Date Occupation Industry Not on file Not on file Not on file Plan of Treatment Health Maintenance Due Date Last Done Comments DTaP,Tdap,and Td Vaccines (1 - Tdap) 1976 Zoster Vaccines (1 of 2) 2007 Pneumococcal Vaccine: 65+ Ye ars (1 of 1 - PCV) 2022 Abdominal Aortic Aneurysm (A AA) Screen 11/18/2023 Cholesterol Screening (Lipid Panel) 11/18/2023 Colorectal Cancer Screening: Colonoscopy 11/18/2023 Depression Screening 11/18/2023 Falls Risk Assessment 11/18/2023 Hepatitis C Screening 11/18/2023 Medicare Annual Wellness Visit 11/18/2023 Social Influencers of Health Screening 11/18/2023 COVID-19 Vaccine ( - 2023-2 5 season) 2024 Influenza Vaccine (#1) 2024 RSV Immunization Patients 60 + Years Old (1 - 1-dose 75+ series) 2032 HIB Vaccines Aged Out No longer eligi ble based on patient's age to complete this topic HPV Vaccines Aged Out No longer eligi ble based on patient's age to complete this topic Hepatitis A Vaccines Aged Out No long er eligible based on patient's age to complete this topic Hepatitis B Vaccines Aged Out No long er eligible based on patient's age to complete this topic IPV Vaccines Aged Out No longer eligi ble based on patient's age to complete this topic MMR Vaccines Aged Out No longer eligi ble based on patient's age to complete this topic Meningococcal ACWY Vaccine Aged Out N o longer eligible based on patient's age to complete this topic RSV Immunization Patients Un micky 20 months Aged Out No longer eligible b ased on patient's age to complete this topic Varicella Vaccines Aged Out No longer eligible based on patient's age to complete this topic Procedures Procedure Name Priority Date/Time Associated Diagnosis Comments PET CT SKULL TO MID THIGH INITIAL Routine 10/10/2024 12:25 PM EST Other nonspecific abnormal finding of lung field Generalized enlarged lymph nodes from Last 3 Months Results * PET CT Skull to Mid Thigh Initial (10/10/2024 12:25 PM EST) Anatomical Region Laterality Modality Body Radiographic Sonali ging 10/10/2024 1:57 PM EST Impressions 10/10/2024 2:28 PM EST Multiple right upper lobe masses especially 2 masses with hypermetabolic activity suggestive of primary lesion. There are metastatic FDG active large lymph nodes in right suprahilar, right pretracheal, subcarinal space. Metastatic disease involving the liver and large upper retroperitoneal bulky lymphadenopathy. Tracheal narrowing [id number] likely from right pretracheal lymph node or tracheomalacia. Suspect underlying centrilobular emphysema. There is postobstructive atelectasis posterior segment right upper lobe -------- FINAL REPORT -------- Dictated By: Domingo Novoa Dictated Date: 10/10/2024 13:57 ET Assigned Physician: Domingo Novoa Reviewed and Electronically Signed By: Domingo Novoa Signed Date: 10/10/2024 14:28 ET Workstation ID: [id number] Transcribed By: Self Edit Transcribed Date: 10/10/2024 14:02 ET Narrative 10/10/2024 2:28 PM EST EXAMINATION: PET/CT skull to mid thigh. CLINICAL INDICATION: Abnormal CT of lungs. COMPARISON: No outside CT abdomen labeling for comparison. TECHNIQUE: Following intravenous administration of 13 mCi of F-18 FDG in left antecubital vein, whole-body emission scan was obtained from skull base to mid thigh 49 minutes post injection. 5 mm thin axial nondiagnostic CT transmission scan was obtained without oral or IV contrast for correlative imaging and attenuation correction. 3-D reformats and color fusion was performed on a separate workstation and readily available for interpretation. Baseline glucose measures 103 mg/DL. DLP 1168 mGy/cm. FINDINGS: SKULL BASE AND NECK: There is no abnormal metabolic activity seen in the skull base, visualized intracranial brain parenchyma or the neck. Nonspecific mild activity seen along the posterior tongue likely lingular tonsils On CT imaging visualized brain parenchyma appears unremarkable. There is mild mucoperiosteal thickening right maxillary sinus. Rest of paranasal sinuses and mastoid air cells are clear. There is normal symmetric bilateral orbits and globe. No abnormal neck lymph nodes seen. CHEST: There are multiple FDG active mass is in the right upper lobe extending to the right suprahilar region including a large lymph node in the right pretracheal precarinal, subcarinal space and right hilum. The maximum SUV in the superiormost right upper lobe mass is 13.92, slightly larger mass anteriorly in the right upper lobe has max SUV of 13.9 and a right middle mediastinal pretracheal lymph node has a max SUV of 14.15. Right suprahilar lymph node has a maximum SUV of 16.07 and subcarinal lymph node has a max SUV of 16.89. There are no additional areas of metabolic activity seen in the mediastinum or lung parenchyma. On CT there are at least 2 right upper lobe mass is the larger one close to the suprahilar region and a smaller one posterior segment right upper lobe. There is adjacent groundglass reticular opacity likely postobstructive atelectasis. The distal trachea is narrowed but nonobstructed likely from mass effect from right pretracheal lymph node. Underlying tracheomalacia cannot be excluded. There is no pleural or pericardial effusion. Abdomen and pelvis: There is multiple areas of metabolic activity seen in the liver largest in the posterior segment right hepatic lobe image 1 03/26 and max SUV 11.92. There are subtle additional areas of metabolic activity right hepatic lobe lateral segment with max SUV of 4.17. There is third area of abnormal metabolic activity at the tip of right hepatic lobe within Max SUV of 5.90. ??Abnormal upper retroperitoneal large matted lymphadenopathy is present. Abnormal retropancreatic mass/lymph node with a max SUV 14.49. On CT the mass inferior to pancreas in the retroperitoneum measures 7.1 x 5.8 cm, axial CT slice 128/4. The mass continues superiorly to the left of IVC on axial slice 116/4. There is a mass just about the pancreas measuring 9.5 cm wide by 5.5 cm in AP dimension with a max SUV of 16.49. No additional areas of metabolic activity seen in the lower abdomen or pelvis. Visualized kidneys, spleen, adrenal glands, gallbladder appear unremarkable. There is mild constipation. Urinary bladder is nondistended with mild bladder wall thickening. Osseous structures: No abnormal FDG activity seen in osseous structures. Procedure Note Domingo Novoa MD - 10/10/2024 EXAMINATION: PET/CT skull to mid thigh. CLINICAL INDICATION: Abnormal CT of lungs. COMPARISON: No outside CT abdomen labeling for comparison. TECHNIQUE: Following intravenous administration of 13 mCi of F-18 FDG inleft antecubital vein, whole-body emission scan was obtained from skullbase to mid thigh 49 minutes post injection. 5 mm thin axial nondiagnosticCT transmission scan was obtained without oral or IV contrast forcorrelative imaging and attenuation correction. 3-D reformats and colorfusion was performed on a separate workstation and readily available forinterpretation. Baseline glucose measures 103 mg/DL. DLP 1168 mGy/cm. FINDINGS: SKULL BASE AND NECK: There is no abnormal metabolic activity seen in theskull base, visualized intracranial brain parenchyma or the neck.Nonspecific mild activity seen along the posterior tongue likely lingulartonsils On CT imaging visualized brain parenchyma appears unremarkable.There is mild mucoperiosteal thickening right maxillary sinus. Rest ofparanasal sinuses and mastoid air cells are clear. There is normalsymmetric bilateral orbits and globe. No abnormal neck lymph nodes seen. CHEST: There are multiple FDG active mass is in the right upper lobeextending to the right suprahilar region including a large lymph node inthe right pretracheal precarinal, subcarinal space and right hilum. Themaximum SUV in the superiormost right upper lobe mass is 13.92, slightlylarger mass anteriorly in the right upper lobe has max SUV of 13.9 and aright middle mediastinal pretracheal lymph node has a max SUV of 14.15.Right suprahilar lymph node has a maximum SUV of 16.07 and subcarinallymph node has a max SUV of 16.89. There are no additional areas ofmetabolic activity seen in the mediastinum or lung parenchyma. On CT thereare at least 2 right upper lobe mass is the larger one close to thesuprahilar region and a smaller one posterior segment right upper lobe.There is adjacent groundglass reticular opacity likely postobstructiveatelectasis. The distal trachea is narrowed but nonobstructed likely frommass effect from right pretracheal lymph node. Underlying tracheomalacia cannot be excluded. There is no pleural or pericardialeffusion. Abdomen and pelvis: There is multiple areas of metabolic activity seen inthe liver largest in the posterior segment right hepatic lobe image 1 16/3 and max SUV 11.92. There are subtle additional areas of metabolicactivity right hepatic lobe lateral segment with max SUV of 4.17. There isthird area of abnormal metabolic activity at the tip of right hepatic lobewithin Max SUV of 5.90. Abnormal upper retroperitoneal large mattedlymphadenopathy is present. Abnormal retropancreatic mass/lymph node witha max SUV 14.49. On CT the mass inferior to pancreas in theretroperitoneum measures 7.1 x 5.8 cm, axial CT slice 128/4. The masscontinues superiorly to the left of IVC on axial slice 116/4. There is amass just about the pancreas measuring 9.5 cm wide by 5.5 cm in APdimension with a max SUV of 16.49. No additional areas of metabolicactivity seen in the lower abdomen or pelvis. Visualized kidneys, spleen,adrenal glands, gallbladder appear unremarkable. There is mildconstipation. Urinary bladder is nondistended with mild bladder wall thickening. Osseous structures: No abnormal FDG activity seen in osseous structures. IMPRESSION: Multiple right upper lobe masses especially 2 masses with hypermetabolicactivity suggestive of primary lesion. There are metastatic FDG active large lymph nodes in right suprahilar,right pretracheal, subcarinal space. Metastatic disease involving the liver and large upper retroperitonealbulky lymphadenopathy. Tracheal narrowing [id number] likely from right pretracheal lymph nodeor tracheomalacia. Suspect underlying centrilobular emphysema. There ispostobstructive atelectasis posterior segment right upper lobe -------- FINAL REPORT -------- Dictated By: Domingo Novoa Dictated Date: 10/10/2024 13:57 ET Assigned Physician: Domingo Novoa Reviewed and Electronically Signed By: Domingo Novoa Signed Date: 10/10/2024 14:28 ET Workstation ID: [id number] Transcribed By: Self Edit Transcribed Date: 10/10/2024 14:02 ET Josemanuel Cesar MD IMG NM PROCEDURES from Last 3 Months Care Teams Nipple Machine Operator Relationship Specialty Start Date End Date Physician, No Pcp PCP - General 10/11/24
--- OUTSIDE RECORDS SUMMARY | 2024-11-14 10:47 | XMS_ITS | Patient Health Record ---
Author Organization [facility] Address [address] [place] [address] Care Team Providers Care Buyers' Agent Name Role Phone Winston Phipps MD Primary Care Provider Wander Fried Unavailable [phone] ALLERGIES No Known Allergies REASON FOR REFERRAL [...] screening (Z12.11) Active confirmed Colon cancer screening (648346828) Problem Encounter for other preprocedural examination (Z01.818) Active confirmed Pre-procedure evaluation check (218990162) VITAL SIGNS Blood pressure diastolic 00 mm Hg 09/25/2024 Height 6 ft 1 in in 09/25/2024 Blood pressure systolic 00 mm Hg 09/25/2024 Weight 188 lbs 09/25/2024 BMI 24.80 kg/m2 09/25/2024 Encounters Encounter Location Date Provider Diagnosis [facility] [address] [place] [address] 09/25/2024 Wander Vega Colon cancer screeni ng [...] Name:Wander Vega , 01/02/2025 11:20:00 AM, [address] [facility] , [place], [place], [phone], Insurance Providers Payer Name Payer Address Payer Phone Subscriber Number Group Number Insured Name Patient Relationship to Insured Coverage Start Date Coverage End Date [facility] [address] [place] [address] [id number] LADONNA HAM Self - patient is the insured MEDICAL (GENERAL) HISTORY Medical History History ICD Code Hypertension Denies PA,DM,CVA,Lung disease,renal dise ase Arthritis Negative screening colonoscopy > [address] Gates Surgical History Surgery Date(Month/Year) Back surgery
--- OUTSIDE RECORDS SUMMARY | 2024-11-14 10:47 | XMS_ITS ---
Author Organization [facility] Address [address] [place] [address] Care Team Providers Care Pre Parole Counseling Aide Name Role Phone Winston Phipps MD Primary Care Provider Wander Fried Unavailable [phone] ALLERGIES No Known Allergies REASON FOR VISIT [...] screening (Z12.11) Active confirmed Colon cancer screening (143408904) Problem Encounter for other preprocedural examination (Z01.818) Active confirmed Pre-procedure evaluation check (727415605) VITAL SIGNS BMI 24.80 kg/m2 09/25/2024 Blood pressure systolic 00 mm Hg 09/25/20 24 Blood pressure diastolic 00 mm Hg 024 Height 6 ft 1 in in 09/25/2024 Weight 188 lbs 09/25/2024 Encounters Encounter Location Date Provider Diagnosis [facility] [address] [place] [address] 09/25/2024 Wander Vega Colon cancer screeni ng [...] Provider Name:Wander Vega , 01/02/2025 11:20:00 AM, [address] [place] [id number] , [place], [place], [phone], Progress Notes * Examination Category Sub-Category Detail [...]
[2024-11-14 11:06] VITALS: BMI 25.3
[2024-11-14 11:42] LABS: Anion Gap 11 (12-20); Blood Urea Nitrogen 12 mg/dL (9-16); Calcium 8.9 mg/dL (8.4-10.2); Carbon Dioxide 26 mmol/L (22-29); Chloride 93 mmol/L (96-108); Creatinine Clr Calc Pharmacy 94.1; Estimated Glomerular Filt Rate > 60; Glucose Fasting 90 mg/dL (60-99); Potassium 5.6 mmol/L (3.3-5.1); Sodium 124 mmol/L (135-145)
[2024-11-14 12:03] VITALS: BP 146/79; PULSE 73; RESP 18; TEMP 36.7; O2SAT 97
[2024-11-14] MEDS: Lactated Ringers 1,000 ML 100 ML IVCONT (12:39)
[2024-11-14 14:32] VITALS: BP 110/55; PULSE 65; RESP 16; TEMP 36.5; O2SAT 98
[2024-11-14 14:37] VITALS: BP 100/63; PULSE 70; RESP 20; O2SAT 99
[2024-11-14 14:42] VITALS: BP 126/35; PULSE 74; RESP 22; O2SAT 95
[2024-11-14 14:47] VITALS: BP 116/77; PULSE 72; RESP 19; O2SAT 93
[2024-11-14 15:14] VITALS: BP 102/61; PULSE 72; RESP 17; TEMP 36.1; O2SAT 94
--- NOTE | 2024-11-15 08:25 | PM.OP ---
Brief Operative Note Date of Service: 11/15/24 Pre-op diagnosis: lung mass, Lymphadenopathy Post-op diagnosis: other (Lung cancer) Procedure: EBUS with TBNA station 7 and 4R, Bronchoscopy with biopsies, brushings and washings Surgeon: Josemanuel Cesar MD Anesthesia: GETA Was an Mineral Industry Teacher used for this Procedure?: No Estimated blood loss (mL): 0 Pathology: other (RUL biopsies) Condition: stable Disposition: same day
--- NOTE | 2024-11-15 10:41 | OP_ITS ---
DATE OF SERVICE: 11/14/2024 SURGEON: Josemanuel Cesar MD PREOPERATIVE DIAGNOSIS: POSTOPERATIVE DIAGNOSIS: PROCEDURE PERFORMED: ESTIMATED BLOOD LOSS: COMPLICATIONS: ANESTHESIA: General endotracheal anesthesia provided. ASSISTANTS: SPECIMENS: ASA CLASSIFICATION: III. PREOPERATIVE DIAGNOSES: Lung mass and lymphadenopathy and lung cancer. POSTOPERATIVE DIAGNOSES: Lung cancer, lymphadenopathy. PROCEDURES PERFORMED: Endobronchial ultrasound bronchoscopy with transbronchial needle aspiration, station 7 and 4R along with bronchoscopy with biopsies, brushings, and washings. AUTOMOTIVE MECHANICAL ENGINEER: None. The consent was obtained from the patient. DESCRIPTION OF PROCEDURE: The patient was adequately sedated and intubated. The flexible digital bronchoscope with endobronchial ultrasound bronchoscopy, EBUS was introduced into the ET tube to the level of the trachea. The trachea appeared very narrow consistent with a favor to trachea from COPD and emphysema. Using the ultrasound guidance, we could demonstrate significant lymphadenopathy in station 7 and also in station 4R. Large measuring around 2 cm in size. Also grossly on the visual aspect of the airway there appear to be some tumor burden on the endobronchial mucosa right over the main julianna in addition in the right upper lobe area. Using the ultrasound guidance, transbronchial needle aspirations were collected from station 7. About 5 passes were done and some tumor cells were noted. Then, the bronchoscope was navigated to the station 4R where 3 additional passes were done and some tumor cells were also noted. That was sent to Cytology for additional testing. The EBUS bronchoscope was then removed and replaced with a regular bronchoscopy. The tracheobronchial tree was extended to the subsegmental level. There was again endobronchial disease right over the main julianna which was extending from the right upper lobe area with irregular mucosa and some vesicular formation and also in the right upper lobe there was some endobronchial mucosa that was consistent with cancer, irregular, irritated, and papular in appearance. Using forceps, we collected biopsies from the right upper lobe and also extending all the way to the main julianna. Specimens were sent in formalin for additional testing. In addition to that, cytologic brush was also introduced into the right upper lobe for additional analysis and bronchial washings were collected also for additional analysis. No evidence of any active bleeding at the end of the procedure. The bronchoscope was then removed. The total endoscopic time approximately 45 minutes. Patient tolerated the procedure well. Vital signs were stable. No apparent complications. Josemanuel Cesar MD MR/MODL / [id number]
== END | disposition home or self-care (01) ==
PROVIDERS: Nurse Practitioner; PCP Internal Medicine; Visit Provider Hospitalist
PROC: (CPT 31625; principal; 2024-11-14 13:00)
DX: C34.11 Malignant neoplasm of upper lobe, right bronchus or lung (principal); C77.1 Secondary and unspecified malignant neoplasm of intrathoracic lymph nodes; R84.6 Abnormal cytological findings in specimens from respiratory organs and thorax; K86.89 Other specified diseases of pancreas; R60.9 Edema, unspecified; I47.10 Supraventricular tachycardia, unspecified; M62.82 Rhabdomyolysis; J41.0 Simple chronic bronchitis; I10 Essential (primary) hypertension; R41.89 Other symptoms and signs involving cognitive functions and awareness; F10.90 Alcohol use, unspecified, uncomplicated; F17.210 Nicotine dependence, cigarettes, uncomplicated; Z98.890 Other specified postprocedural states
CPT/HCPCS: 31625; 31623; 31652; 36415; 80048; 87070; 87077; 87185; 87205; 88112; 88172; 88173; 88177; 88305; 88341; 88342; J0171; J1100; J2003; J2371; J2405; J2704; J3010

== ENCOUNTER → 2024-11-14 09:52 | Outpatient (BNV) | payer MEDICARE, SELFPAY | PROVIDERS: PCP Internal Medicine; Visit Provider Hospitalist | DX: C34.11 Malignant neoplasm of upper lobe, right bronchus or lung (principal); C77.1 Secondary and unspecified malignant neoplasm of intrathoracic lymph nodes | CPT/HCPCS: 31623; 31628; 31652 ==

== ENCOUNTER → 2024-11-20 10:00 | Outpatient (BNV) | payer MEDICARE, SELFPAY | PROVIDERS: PCP Internal Medicine; Referring Provider Hospitalist; Visit Provider Internal Medicine Medical Oncology | DX: C34.90 Malignant neoplasm of unspecified part of unspecified bronchus or lung (principal) | CPT/HCPCS: 99204 ==

== ENCOUNTER → 2024-11-29 12:58 | Outpatient (BNVA) | payer MEDICARE, SELFPAY | PROVIDERS: PCP Internal Medicine; Visit Provider Hospitalist | DX: J41.0 Simple chronic bronchitis (principal); K76.9 Liver disease, unspecified; R91.8 Other nonspecific abnormal finding of lung field; K86.89 Other specified diseases of pancreas; C78.7 Secondary malignant neoplasm of liver and intrahepatic bile duct; C34.81 Malignant neoplasm of overlapping sites of right bronchus and lung; K21.9 Gastro-esophageal reflux disease without esophagitis; F17.210 Nicotine dependence, cigarettes, uncomplicated; Z23 Encounter for immunization | CPT/HCPCS: 90471; 90656; 99212 ==

== ENCOUNTER → 2024-11-30 08:16 | Outpatient (BNV) | payer MEDICARE, SELFPAY | PROVIDERS: PCP Internal Medicine; Visit Provider Radiology Diagnostic Radiology | DX: K86.89 Other specified diseases of pancreas (principal) | CPT/HCPCS: 74181 ==

== ENCOUNTER 2024-11-30 08:18 | Outpatient (REF) | payer MEDICARE, SELFPAY ==
--- OUTSIDE RECORDS SUMMARY | 2024-11-30 08:34 | XMS_ITS | Clinical Summary ---
Author Organization [facility] Address [address] [place] [address] Phone Care Team Providers Care Global Cto Name Role Phone Physician, No Pcp Primary Care Provider Unavaila ble Encounters Date Type Department Care Team Description 10/10/2024 10:26 AM EST - 10/10/2024 11:59 PM EST Hospital Encounter [facility] PET Scan [address] [place] [address] Other nonspecific abnormal finding of [...] large upper retroperitoneal bulky lymphadenopathy. Tracheal narrowing [id number] likely from right pretracheal lymph node or tracheomalacia. Suspect underlying centrilobular emphysema. There is postobstructive atelectasis posterior segment right upper lobe -------- FINAL REPORT -------- Dictated By: Domingo Novoa Dictated Date: 10/10/2024 13:57 ET Assigned Physician: Domingo Novoa Reviewed and Electronically Signed By: Domingo Novoa Signed Date: 10/10/2024 14:28 ET Workstation ID: [id number] Transcribed By: Self Edit Transcribed Date: 10/10/2024 [...] and large upper retroperitonealbulky lymphadenopathy. Tracheal narrowing cdxv-[id number] likely from right pretracheal lymph nodeor tracheomalacia. Suspect underlying centrilobular emphysema. There ispostobstructive atelectasis posterior segment right upper lobe -------- FINAL REPORT -------- Dictated By: Domingo Novoa Dictated Date: 10/10/2024 13:57 ET Assigned Physician: Domingo Novoa Reviewed and Electronically Signed By: Domingo Novoa Signed Date: 10/10/2024 14:28 ET Workstation ID: [id number] Transcribed By: Self Edit Transcribed Date: 10/10/2024 14:02 ET Josemanuel Cesar MD IMG NM PROCEDURES from Last 3 Months Care Teams Global Cto Relationship Specialty Start Date End Date Physician, No Pcp PCP - General 10/11/24
--- OUTSIDE RECORDS SUMMARY | 2024-11-30 08:34 | XMS_ITS | Patient Health Record ---
Author Organization [facility] Address [address] [place] [address] Care Team Providers Care Rn Intake Name Role Phone Winston Phipps MD Primary Care Provider Wander Fried Unavailable [phone] ALLERGIES No Known Allergies REASON FOR REFERRAL [...] screening (Z12.11) Active confirmed Colon cancer screening (267727360) Problem Encounter for other preprocedural examination (Z01.818) Active confirmed Pre-procedure evaluation check (521833705) VITAL SIGNS Blood pressure diastolic 00 mm Hg 09/25/2024 Height 6 ft 1 in in 09/25/2024 Blood pressure systolic 00 mm Hg 09/25/2024 Weight 188 lbs 09/25/2024 BMI 24.80 kg/m2 09/25/2024 Encounters Encounter Location Date Provider Diagnosis [facility] [address] [place] [address] 09/25/2024 Wander Vega Colon cancer screeni ng Z12.11 and Encounter for other preprocedural examination Z01.818 [facility] [address] [place] [address] 11/20/2024 Wander Vega ASSESSMENTS Encounter Date Diagnosis Assessment Notes Treatment Notes Treatment Clinical Notes 09/25/2024 Colon cancer screening (ICD-10 - Z12.11) 09/25/2024 Encounter for other preprocedural examination (ICD-10 - Z01.818) PLAN OF TREATMENT Future Test Test Name Order Date COLONOSCOPY 09/25/2024 Insurance Providers Payer Name Payer Address Payer Phone Subscriber Number Group Number Insured Name Patient Relationship to Insured Coverage Start Date Coverage End Date [facility] [address] [address] [place] [address] [id number] LADONNA HAM Self - patient is the insured MEDICAL (GENERAL) HISTORY Medical History History ICD Code Hypertension Denies ME,DM,CVA,Lung disease,renal dise ase Arthritis Negative screening colonoscopy > [address] Gates Surgical History Surgery Date(Month/Year) Back surgery
--- OUTSIDE RECORDS SUMMARY | 2024-11-30 08:35 | XMS_ITS ---
Author Organization [facility] Address [address] [place] [address] Care Team Providers Care Padded Products Inspector Trimmer Name Role Phone Winston Phipps MD Primary Care Provider Unavaila Wander Manzanares Unavailable [phone] REASON FOR VISIT Colonoscopy Encounters Encounter Location Date Provider Diagnosis [facility] [address] [place] [address] 11/20/2024 Wander Vega PLAN OF TREATMENT No Information
--- OUTSIDE RECORDS SUMMARY | 2024-11-30 08:35 | XMS_ITS ---
Author Organization [facility] Address [address] [place] [address] Care Team Providers Care Aircraft Power Plant Assembler Name Role Phone Winston Phipps MD Primary Care Provider Wander Fried Unavailable [phone] ALLERGIES No Known Allergies REASON FOR VISIT [...] screening (Z12.11) Active confirmed Colon cancer screening (142030502) Problem Encounter for other preprocedural examination (Z01.818) Active confirmed Pre-procedure evaluation check (377594267) VITAL SIGNS BMI 24.80 kg/m2 09/25/2024 Blood pressure systolic 00 mm Hg 09/25/20 24 Blood pressure diastolic 00 mm Hg 024 Height 6 ft 1 in in 09/25/2024 Weight 188 lbs 09/25/2024 Encounters Encounter Location Date Provider Diagnosis [facility] [address] [place] [address] 09/25/2024 Wander Vega Colon cancer screeni ng Z12.11 and Encounter for other preprocedural examination Z01.818 ASSESSMENTS Encounter Date Diagnosis Assessment Notes Treatment Notes Treatment Clinical Notes 09/25/2024 Colon cancer screening (ICD-10 - Z12.11) 09/25/2024 Encounter for other preprocedural examination (ICD-10 - Z01.818) PLAN OF TREATMENT Future Test Test Name Order Date COLONOSCOPY 09/25/2024 Next Appt Details Follow Up: prn, Reason: Progress Notes * Examination Category Sub-Category Detail [...]
== END 2024-11-30 08:19 | disposition home or self-care (01) ==
LOC: HO.MRI 08:18
PROVIDERS: PCP Internal Medicine; Visit Provider Internal Medicine Medical Oncology
DX: K86.89 Other specified diseases of pancreas (principal)

== ENCOUNTER → 2024-12-11 11:52 | Outpatient (REF) | payer MEDICARE, SELFPAY ==
--- NOTE | 2024-12-11 11:58 | ECG_ITS ---
Test Reason : COPD Blood Pressure : */* mmHG Vent. Rate : 81 BPM Atrial Rate : 81 BPM P-R Int : 120 ms QRS Dur : 80 ms QT Int : 344 ms P-R-T Axes : 80 67 64 degrees QTcB Int : 399 ms Sinus rhythm with occasional Premature ventricular complexes Otherwise normal ECG When compared with ECG of 19-Nov-2022 16:49, Premature ventricular complexes are now Present Nonspecific T wave abnormality no longer evident in Inferior leads T wave amplitude has increased in Anterior leads QT has shortened Referred By: Josemanuel Cesar Electronically Signed By: SERGIO GAN
--- OUTSIDE RECORDS SUMMARY | 2024-12-11 13:03 | XMS_ITS | Clinical Summary ---
Author Organization [facility] Address [address] [place] [address] Phone Care Team Providers Care Sheet Combining Operator Name Role Phone Physician, No Pcp Primary Care Provider Unavaila ble Encounters Date Type Department Care Team Description 10/10/2024 10:26 AM EST - 10/10/2024 11:59 PM EST Hospital Encounter [facility] PET Scan [address] [place] [address] Other nonspecific abnormal finding of lung field; Generalized enlarged lymph nodes Discharge Disposition: Home or Self Care from Last 3 Months Social History Tobacco Use Types Packs/Day Years Used Date Smoking Tobacco: Never Assessed Sex and Gender Information Value Date Recorded Sex Assigned at Not on file Legal Sex Male 9:13 PM EST Gender Identity Not on file Sexual Orientation Not on file Plan of Treatment Health Maintenance Due Date Last Done Comments DTaP,Tdap,and Td Vaccines (1 - Tdap) 1976 Pneumococcal Vaccine: 50+ Ye ars (1 of 1 - PCV) 2007 Zoster Vaccines (1 of 2) 2007 Abdominal Aortic Aneurysm (A AA) Screen 11/18/2023 [...] patient's age to complete this topic Meningococcal B Vacine Aged Out No lo nger eligible based on patient's age to complete [...] large upper retroperitoneal bulky lymphadenopathy. Tracheal narrowing ahkr-[id number] likely from right pretracheal lymph node or tracheomalacia. Suspect underlying centrilobular emphysema. There is postobstructive atelectasis posterior segment right upper lobe -------- FINAL REPORT -------- Dictated By: Domingo Novoa Dictated Date: 10/10/2024 13:57 ET Assigned Physician: Domingo Novoa Reviewed and Electronically Signed By: Domingo Novoa Signed Date: 10/10/2024 14:28 ET Workstation ID: [id number] Transcribed By: Self Edit Transcribed Date: 10/10/2024 [...] and large upper retroperitonealbulky lymphadenopathy. Tracheal narrowing exka-[id number] likely from right pretracheal lymph nodeor tracheomalacia. Suspect underlying centrilobular emphysema. There ispostobstructive atelectasis posterior segment right upper lobe -------- FINAL REPORT -------- Dictated By: Domingo Novoa Dictated Date: 10/10/2024 13:57 ET Assigned Physician: Domingo Novoa Reviewed and Electronically Signed By: Domingo Novoa Signed Date: 10/10/2024 14:28 ET Workstation ID: [id number] Transcribed By: Self Edit Transcribed Date: 10/10/2024 14:02 ET Josemanuel Cesar MD IMG NM PROCEDURES Final Re sult from Last 3 Months Insurance [employer] [place] [address] Care Teams Sheet Combining Operator Relationship Specialty Start Date End Date Physician, No Pcp PCP - General 10/11/24
--- OUTSIDE RECORDS SUMMARY | 2024-12-11 13:03 | XMS_ITS | Patient Health Record ---
Author Organization [facility] Address [address] [place] [address] Care Team Providers Care Radio Commentator Name Role Phone Winston Phipps MD Primary Care Provider Wander Fried Unavailable [phone] ALLERGIES No Known Allergies REASON FOR REFERRAL [...] screening (Z12.11) Active confirmed Colon cancer screening (509205847) Problem Encounter for other preprocedural examination (Z01.818) Active confirmed Pre-procedure evaluation check (428422249) VITAL SIGNS Blood pressure diastolic 00 mm Hg 09/25/2024 Height 6 ft 1 in in 09/25/2024 Blood pressure systolic 00 mm Hg 09/25/2024 Weight 188 lbs 09/25/2024 BMI 24.80 kg/m2 09/25/2024 Encounters Encounter Location Date Provider Diagnosis [facility] [address] [place] [address] 09/25/2024 Wander Vega Colon cancer screeni ng Z12.11 and Encounter for other preprocedural examination Z01.818 [facility] [address] [place] [address] 11/20/2024 Wander Vega ASSESSMENTS Encounter Date Diagnosis [...] Coverage Start Date Coverage End Date [facility] [address] [address] [place] [address] [id number] LADONNA HAM Self - patient is the insured MEDICAL (GENERAL) HISTORY Medical History History ICD Code Hypertension Denies [place],DM,CVA,Lung disease,renal dise ase Arthritis Negative screening colonoscopy > [address] Gates Surgical History Surgery Date(Month/Year) Back surgery
--- OUTSIDE RECORDS SUMMARY | 2024-12-11 13:03 | XMS_ITS ---
Author Organization [facility] Address [address] [place] [address] Care Team Providers Care Detacker Name Role Phone Winston Phipps MD Primary Care Provider Unavaila Wander Manzanares Unavailable [phone] REASON FOR VISIT Colonoscopy Encounters Encounter Location Date Provider Diagnosis [facility] [address] [place] [address] 11/20/2024 Wander Vega PLAN OF TREATMENT No Information
--- OUTSIDE RECORDS SUMMARY | 2024-12-11 13:03 | XMS_ITS ---
Author Organization [facility] Address [address] [place] [address] Care Team Providers Care Sewing Machine Mechanic Name Role Phone Winston Phipps MD Primary Care Provider Wander Fried Unavailable [phone] ALLERGIES No Known Allergies REASON FOR VISIT [...] screening (Z12.11) Active confirmed Colon cancer screening (496628635) Problem Encounter for other preprocedural examination (Z01.818) Active confirmed Pre-procedure evaluation check (515412903) VITAL SIGNS BMI 24.80 kg/m2 09/25/2024 Blood pressure systolic 00 mm Hg 09/25/20 24 Blood pressure diastolic 00 mm Hg 024 Height 6 ft 1 in in 09/25/2024 Weight 188 lbs 09/25/2024 Encounters Encounter Location Date Provider Diagnosis [facility] [address] [place] [address] 09/25/2024 Wander Vega Colon cancer screeni ng [...]
== END ==
LOC: HO.CARD 11:52
PROVIDERS: PCP Internal Medicine; Visit Provider Hospitalist
DX: J44.9 Chronic obstructive pulmonary disease, unspecified (principal)
CPT/HCPCS: 93005

== ENCOUNTER → 2024-12-11 11:58 | Outpatient (BNV) | payer MEDICARE, SELFPAY | PROVIDERS: PCP Internal Medicine; Visit Provider Internal Medicine | DX: I49.3 Ventricular premature depolarization (principal) | CPT/HCPCS: 93010 ==

== ENCOUNTER 2024-12-21 10:12 | Outpatient (AMB) | payer MEDICARE, SELFPAY ==
--- NOTE | 2024-12-21 10:24 | HO.NEPHOV_ITS ---
Vital Signs 12/21/24 10:27 Height 6 ft 1 in Weight 199 lb BMI 26.3 BP 124/70 Blood Pressure Location Rt brachial Position Sitting Pulse 75 Pulse Source Pulse Oximeter Pulse Oximetry (%) 95 Oxygen Delivery Method Room Air Intake Visit Reasons: INP: Referred by Dr Tanner-Castro Product Distribution Specialist Required: No Accompanied by: Self / Same As Patient Allergies No Known Allergies Allergy (Verified 12/21/24 10:27) HPI Comments Details: I had the privilege of seeing Siva accompanied by his sister for hyponatremia. He recently carries a diagnosis of poorly-differentiated lung cancer with liver metastases with a new ill-defined mass in the region of the head of the pancreas. He has H/O hypertension and excess alcohol intake as well as smoking. He has been having weight loss but denies continued excess beer drinking, nausea, vomiting or diarrhea. He is depressed about the diagnosis. He has a very strong family H/O malignancy. He is not taking thiazide diuretics. He has H/O COPD and hyponatremia in the past. He is not taking any anti depressant medication. He has no H/O heart failure. He has no mental status changes or any H/O seizures. Recently his serum sodium has gone down to 121 PFSH Medical History Lung cancer COPD (chronic obstructive pulmonary disease) Pancreatic mass Lymphadenopathy Lung mass Nicotine dependence, cigarettes, uncomplicated Hypertension SVT (supraventricular tachycardia) Edema Pressure ulcer Alcohol use disorder Cognitive disorder Rhabdomyolysis Surgical History History of colonoscopy History of lumbar laminectomy Family History Father No problems noted. Mother Lung cancer Family/Other Lung cancer Throat cancer Social History Household Members: None Housing: Apartment Are you a primary eye care professional to a significant other at home: No Do you presently have visiting nurse or other home services: No Unable to assess alcohol history related to: Unable to respond Alcohol intake: current Alcohol intake frequency: 3 or more drinks per day Alcohol type: beer Comment: camera not available Patient Tobacco Use Status: Current everyday Tobacco user Tobacco use type: Cigarette Cigarette Packs Per Day: 0.5 Years Smoked: (onset 16yo, 1-1.5ppd x 53yrs, 60+PYH) e-Cigarette/Vaping Use: Never Used Second Hand Smoke Exposure: Yes service: No 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 identity: Male Cognitive needs: No Hearing needs: No Vision needs: Yes Physical Exam Vital Signs: Last Vital Signs Pulse 75 12/21/24 10:27 BP 124/70 12/21/24 10:27 Pulse Ox 95 12/21/24 10:27 Oxygen Delivery Method Room Air 12/21/24 10:27 BMI result Body Mass Index 26.3 Const General: comfortable and no acute distress Orientation/consciousness: patient oriented x3 HEENT Head: Yes normocephalic Mouth: Normal oral and palatal mucosa present Eyes EOM: EOMs intact bilaterally Neck Neck: Yes supple Resp Auscultation: clear to auscultation bilaterally Cardio Jugular venous distension: no JVD Rate: regular rate GI Palpation (GI): Soft to palpation Auscultation: normal bowel sounds General: Yes no CVA tenderness Back/Spine/Pelvis Back: no CVA tenderness Skin General skin exam: no rashes or lesions noted Neuro General: patient oriented x3 and moves all extremities Results Reviewed Nephrology Results: Hgb 12.9 g/dl (14.0-18.0) L 12/11/24 WBC 9.6 X10*3/uL (4.8-10.8) 12/11/24 Plt Count 302 X10*3/uL (160-400) 12/11/24 Sodium 125 mmol/L (135-145) L 12/21/24 Potassium 5.0 mmol/L (3.3-5.1) 12/21/24 Chloride 93 mmol/L (96-108) L 12/21/24 Carbon Dioxide 26 mmol/L (22-29) 12/21/24 BUN 25 mg/dL (9-16) H 12/21/24 Creatinine 0.72 mg/dL (0.5-1.4) 12/21/24 Calcium 8.3 mg/dL (8.4-10.2) L 12/11/24 Assessment & Plan Assessment & Plan (1) Hypertension: Code(s): I10 - Essential (primary) hypertension Category: Medical Qualifiers: Hypertension type: primary hypertension Qualified Code(s): I10 - Essential (primary) hypertension (2) Hyponatremia: Code(s): E87.1 - Hypo-osmolality and hyponatremia Category: Medical (3) Hyperkalemia: Code(s): E87.5 - Hyperkalemia Category: Medical Plan He has hyponatremia due to excess ADH. He has no H/O HF but has h/o pulmonary disease in the past until his recent diagnosis of metastatic malignancy. His serum K has been on the high side raising possibility of adrenal insufficiency even though he has no other classical features of it. I have ordered cortisol level. I reviewed his recent imaging studies which did not show any adrenal lesions. He is currently on fluid restriction and has been started on PO Urea. He is hypertensive and has edema even prior to initiation of Amlodipine. His lisinopril has been recently changed to Amlodipine given high serum K. He could continue on current dose of PO urea for now and does not warrant initiation of Tolvaptan. He gets regular blood work for chemotherapy and we shall keep a close watch on his blood chemistry and renal function. All recent records reviewed and all questions answered. Time spent reviewing records, encounter and documentation 52 minutes. Follow up given Orders: Orders Cortisol Random 12/21/24 E87.1 - Hypo-osmolality and hyponatremia, E87.5 - Hyperkalemia, I10 - Essential (primary) hypertension Electrolytes 12/21/24 E87.1 - Hypo-osmolality and hyponatremia, E87.5 - Hyperkalemia, I10 - Essential (primary) hypertension Blood Urea Nitrogen 12/21/24 E87.1 - Hypo-osmolality and hyponatremia, E87.5 - Hyperkalemia, I10 - Essential (primary) hypertension Creatinine 12/21/24 E87.1 - Hypo-osmolality and hyponatremia, E87.5 - Hyperkalemia, I10 - Essential (primary) hypertension Medications: Changed From urea 2 packets PO DAILY 20 ea 3RF To urea 1 packet PO DAILY 30 days 20 ea 6RF Refilled amlodipine 10 mg PO DAILY 30 tabs 6RF Coding Level of Care Code New Pt Level 5 (65829) Diagnoses Primary hypertension I10 Hypertension type: primary hypertension Hyponatremia E87.1 Hyperkalemia E87.5
[2024-12-21 10:27] VITALS: BP 124/70; PULSE 75; O2SAT 95; BMI 26.3
--- OUTSIDE RECORDS SUMMARY | 2024-12-21 11:23 | XMS_ITS ---
Author Organization [facility] Address [address] [place] [address] Care Team Providers Care Fur Dry Cleaner Hand Name Role Phone Winston Phipps MD Primary Care Provider Wander Fried Unavailable [phone] ALLERGIES No Known Allergies REASON FOR VISIT [...] screening (Z12.11) Active confirmed Colon cancer screening (597727731) Problem Encounter for other preprocedural examination (Z01.818) Active confirmed Pre-procedure evaluation check (586741775) VITAL SIGNS Blood pressure systolic 00 mm Hg 09/25/20 24 Blood pressure diastolic 00 mm Hg 024 Height 6 ft 1 in in 09/25/2024 Weight 188 lbs 09/25/2024 BMI 24.80 kg/m2 09/25/2024 Encounters Encounter Location Date Provider Diagnosis [facility] [address] [place] [address] 09/25/2024 Wander Vega Colon cancer screeni ng [...]
--- OUTSIDE RECORDS SUMMARY | 2024-12-21 11:23 | XMS_ITS | Patient Health Record ---
Author Organization [facility] Address [address] [place] [address] Care Team Providers Care Lube Worker Name Role Phone Winston Phipps MD Primary Care Provider Wander Fried Unavailable [phone] ALLERGIES No Known Allergies REASON FOR REFERRAL [...] screening (Z12.11) Active confirmed Colon cancer screening (252515414) Problem Encounter for other preprocedural examination (Z01.818) Active confirmed Pre-procedure evaluation check (546142027) VITAL SIGNS Blood pressure diastolic 00 mm Hg 09/25/2024 Height 6 ft 1 in in 09/25/2024 Blood pressure systolic 00 mm Hg 09/25/2024 Weight 188 lbs 09/25/2024 BMI 24.80 kg/m2 09/25/2024 Encounters Encounter Location Date Provider Diagnosis [facility] [address] [place] [address] 09/25/2024 Wander Vega Colon cancer screeni ng Z12.11 and Encounter for other preprocedural examination Z01.818 [facility] [address] [place] [address] 11/20/2024 Wander Vega ASSESSMENTS Encounter Date Diagnosis [...] Insured Coverage Start Date Coverage End Date [facility] [address] [address] [place] [address] [id number] LADONNA HAM Self - patient is the insured MEDICAL (GENERAL) HISTORY Medical History History ICD Code Hypertension Denies [place],DM,CVA,Lung disease,renal dise ase Arthritis Negative screening colonoscopy > [address] Gates Surgical History Surgery Date(Month/Year) Back surgery
--- OUTSIDE RECORDS SUMMARY | 2024-12-21 11:23 | XMS_ITS ---
Author Organization [facility] Address [address] [place] [address] Care Team Providers Care [employer] Name Role Phone Winston Phipps MD Primary Care Provider Unavaila Wander Manzanares Unavailable [phone] REASON FOR VISIT Colonoscopy Encounters Encounter Location Date Provider Diagnosis [facility] [address] [place] [address] 11/20/2024 Wander Vega PLAN OF TREATMENT No Information
--- OUTSIDE RECORDS SUMMARY | 2024-12-21 11:23 | XMS_ITS | Clinical Summary ---
Author Organization [facility] Address [address] [place] [address] Phone Care Team Providers Care Head Turning Machine Operator Name Role Phone Physician, No Pcp Primary Care Provider Unavaila ble Encounters Date Type Department Care Team Description 10/10/2024 10:26 AM EST - 10/10/2024 11:59 PM EST Hospital Encounter [facility] PET Scan [address] [place] [address] Other nonspecific abnormal finding of [...] large upper retroperitoneal bulky lymphadenopathy. Tracheal narrowing [id number] likely from right pretracheal lymph node or tracheomalacia. Suspect underlying centrilobular emphysema. There is postobstructive atelectasis posterior segment right upper lobe -------- FINAL REPORT -------- Dictated By: Domingo Novoa Dictated Date: 10/10/2024 13:57 ET Assigned Physician: Domingo Novoa Reviewed and Electronically Signed By: Domingo Novoa Signed Date: 10/10/2024 14:28 ET Workstation ID: [id number] Transcribed By: Self Edit Transcribed Date: 10/10/2024 [...] and large upper retroperitonealbulky lymphadenopathy. Tracheal narrowing [id number] likely from right pretracheal lymph nodeor tracheomalacia. Suspect underlying centrilobular emphysema. There ispostobstructive atelectasis posterior segment right upper lobe -------- FINAL REPORT -------- Dictated By: Domingo Novoa Dictated Date: 10/10/2024 13:57 ET Assigned Physician: Domingo Novoa Reviewed and Electronically Signed By: Domingo Novoa Signed Date: 10/10/2024 14:28 ET Workstation ID: [id number] Transcribed By: Self Edit Transcribed Date: 10/10/2024 14:02 ET Josemanuel Cesar MD IMG NM PROCEDURES Final Re sult from Last 3 Months Insurance [employer] MEDICARE Care Teams Head Turning Machine Operator Relationship Specialty Start Date End Date Physician, No Pcp PCP - General 10/11/24
== END 2024-12-21 10:50 | disposition home or self-care (01) ==
PROVIDERS: PCP Internal Medicine; Visit Provider Internal Medicine Nephrology
DX: I10 Essential (primary) hypertension (principal); E87.1 Hypo-osmolality and hyponatremia; E87.5 Hyperkalemia
CPT/HCPCS: 99204

== ENCOUNTER → 2024-12-21 10:12 | Outpatient (BNVA) | payer MEDICARE, SELFPAY | PROVIDERS: PCP Internal Medicine; Visit Provider Internal Medicine Nephrology | DX: I10 Essential (primary) hypertension (principal); E87.1 Hypo-osmolality and hyponatremia; E87.5 Hyperkalemia | CPT/HCPCS: 99202 ==

== ENCOUNTER 2024-12-21 10:55 | Outpatient (REF) | payer MEDICARE, SELFPAY ==
[2024-12-21 11:37] LABS: Anion Gap 11 (12-20); Blood Urea Nitrogen 25 mg/dL (9-16); Carbon Dioxide 26 mmol/L (22-29); Chloride 93 mmol/L (96-108); Estimated Glomerular Filt Rate > 60; Sodium 125 mmol/L (135-145)
[2024-12-21 12:14] LABS: Cortisol Random 7.4 ug/dL
--- OUTSIDE RECORDS SUMMARY | 2024-12-21 12:34 | XMS_ITS | Clinical Summary ---
Author Organization [facility] Address [address] [place] [address] Phone Care Team Providers Care Ingot Car Operator Name Role Phone Physician, No Pcp Primary Care Provider Unavaila ble Encounters Date Type Department Care Team Description 10/10/2024 10:26 AM EST - 10/10/2024 11:59 PM EST Hospital Encounter [facility] PET Scan [address] [place] [address] Other nonspecific abnormal finding of [...] large upper retroperitoneal bulky lymphadenopathy. Tracheal narrowing ujyt-xh-ranx likely from right pretracheal lymph node or tracheomalacia. Suspect underlying centrilobular emphysema. There is postobstructive atelectasis posterior segment right upper lobe -------- FINAL REPORT -------- Dictated By: Domingo Novoa Dictated Date: 10/10/2024 13:57 ET Assigned Physician: Domingo Novoa Reviewed and Electronically Signed By: Domingo Novoa Signed Date: 10/10/2024 14:28 ET Workstation ID: [id number] Transcribed By: Self Edit Transcribed Date: 10/10/2024 [...] and large upper retroperitonealbulky lymphadenopathy. Tracheal narrowing oswc-gt-spzq likely from right pretracheal lymph nodeor tracheomalacia. Suspect underlying centrilobular emphysema. There ispostobstructive atelectasis posterior segment right upper lobe -------- FINAL REPORT -------- Dictated By: Domingo Novoa Dictated Date: 10/10/2024 13:57 ET Assigned Physician: Domingo Novoa Reviewed and Electronically Signed By: Domingo Novoa Signed Date: 10/10/2024 14:28 ET Workstation ID: [id number] Transcribed By: Self Edit Transcribed Date: 10/10/2024 14:02 ET Josemanuel Cesar MD IMG NM PROCEDURES Final Re sult from Last 3 Months Insurance [employer] Care Teams Ingot Car Operator Relationship Specialty Start Date End Date Physician, No Pcp PCP - General 10/11/24
== END 2024-12-21 10:56 | disposition home or self-care (01) ==
LOC: HO.10HDL 10:55
PROVIDERS: Visit Provider Internal Medicine Nephrology
DX: I10 Essential (primary) hypertension (principal); E87.1 Hypo-osmolality and hyponatremia; E87.5 Hyperkalemia
CPT/HCPCS: 36415; 80051; 82533; 82565; 84520

== ENCOUNTER 2025-01-01 10:43 | Outpatient (AMB) | payer OTHER, SELFPAY ==
--- NOTE | 2025-01-01 10:46 | A.OFFPC_ITS ---
Vital Signs 01/01/25 10:48 Height 6 ft 1 in Weight 203 lb 4 oz BMI 26.8 BP 140/82 H Blood Pressure Location Lt brachial Position Sitting Pulse 86 Pulse Source Pulse Oximeter Temp 97.3 F Temp Source Temporal Artery Scan Pulse Oximetry (%) 97 Oxygen Delivery Method Room Air Intake Visit Reasons: 3mth f/u Intake Note: Patient is here to follow up on HTN, COPD. Pyrometer Operator Required: No Hairspring Fabrication Supervisor: Not Required per policy Accompanied by: Self / Same As Patient Allergies No Known Allergies Allergy (Verified 01/01/25 10:47) Medication List - Last Reconciled 01/02/25 by Winston Phipps MD amlodipine 10 mg PO DAILY azithromycin 250 mg PO 3XW 28 days dexamethasone 4 mg PO BID fluticasone propion-salmeterol 250-50 mcg/dose (Wixela Inhub) 1 inh inhalation Q12H 30 days folic acid 1 mg PO DAILY ondansetron 8 mg PO Q8H PRN urea 1 packet PO DAILY 30 days Tobacco use date assessed: 01/01/25 Fall risk assessment: No Falls in past year Last assessed Fall Risk: 01/01/25 Dental Screening Dental Screen Date: 01/01/25 Did you have a dental visit in the last 12 months?: No Did you have a dental problem in the last 6 months where you did not have access to dental care?: No Was dental information given to patient?: No (Dentures) HPI 3mth f/u HPI Details hypertension on rx; compliant; being treated for lung cancer in oncology [facility] Medical History Lung cancer COPD (chronic obstructive pulmonary disease) Pancreatic mass Lymphadenopathy Lung mass Nicotine dependence, cigarettes, uncomplicated Hypertension SVT (supraventricular tachycardia) Edema Pressure ulcer Alcohol use disorder Cognitive disorder Rhabdomyolysis Surgical History History of colonoscopy History of lumbar laminectomy Family History Father No problems noted. Mother Lung cancer Family/Other Lung cancer Throat cancer Social History Household Members: None Housing: Apartment Are you a primary skin care specialist to a significant other at home: No Do you presently have visiting nurse or other home services: No Unable to assess alcohol history related to: Unable to respond Alcohol intake: current Alcohol intake frequency: 3 or more drinks per day Alcohol type: beer Comment: camera not available Patient Tobacco Use Status: Current everyday Tobacco user Tobacco use type: Cigarette Cigarette Packs Per Day: 0.5 Cigarettes Per Day: 20 Years Smoked: (onset 16yo, 1-1.5ppd x 53yrs, 60+PYH) e-Cigarette/Vaping Use: Never Used Second Hand Smoke Exposure: Yes service: No 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 1. Little interest or pleasure in doing things: not at all 2. Feeling down, depressed, or hopeless: not at all 3. Trouble falling or staying asleep, or sleeping too much: not at all 4. Feeling tired or having little energy: not at all 5. Poor appetite or overeating: not at all 6. Feeling bad about yourself - or that you are a failure or have let yourself or your family down: not at all 7. Trouble concentrating on things, such as reading the newspaper or watching television: not at all 8. Moving or speaking so slowly that other people could have noticed. Or the opposite - being so fidgety or restless that you have been moving around a lot more than usual: not at all 9. Thoughts that you would be better off or of hurting yourself in some way: not at all Total score: 0 Depression Screening Interpretation: Negative Depression Screening Done: Yes Source: Developed by Drs. Wander Fox, Mallorie Reed, Dwight Vernon and colleagues, with an educational gabbi from [employer]. Thrive Questionnaire Date Thrive assessed: 01/01/25 AUDIT C Alcohol Use Questionnaire (AUDIT-C) 1. How often do you have a drink containing alcohol?: 4 or more times a week 2. How many drinks containing alcohol do you have on a typical day when you are drinking?: 3 or 4 Total Score: 5 TATIANA-7 AMB Questionnaire TATIANA-7 Date TATIANA - 7 assessed: 01/01/25 Feeling nervous, anxious, or on edge: 0 = Not at all Not being able to stop or control worryin = Not at all Worrying too much about different things: 0 = Not at all Trouble relaxin = Not at all Being so restless that it is hard to sit still: 0 = Not at all Becoming easily annoyed or irritable: 0 = Not at all Feeling afraid as if something awful might happen: 0 = Not at all Total TATIANA-7 score (0-4 normal; 5-9 mild; 10-14 moderate; 15-21 severe): 0 Source: Developed by Drs. Wander Fox, Mallorie Reed, Dwight Vernon and colleagues, with an educational gabbi from [employer]. Review of Systems Const Denies chills, Denies headache(s) and Denies weight loss ENT Denies headache(s) Card Denies chest pain, Denies syncope, Denies irregular heart rhythm and Denies dyspnea Resp Denies chest congestion, Denies cough and Denies dyspnea GI Denies abdominal pain, Denies change in stool character, Denies nausea and Denies vomiting Musc Denies deformity and Denies joint swelling Neuro Denies syncope and Denies headache(s) Physical exam (Primary Care) Vital Signs: Last Vital Signs Temp 97.3 F 01/01/25 10:48 Pulse 86 01/01/25 10:48 BP 140/82 H 01/01/25 10:48 Pulse Ox 97 01/01/25 10:48 Oxygen Delivery Method Room Air 01/01/25 10:48 BMI result Body Mass Index 26.8 Tobacco/Smoking Status: Tobacco use Status Tobacco use date assessed 01/01/25 01/01/25 10:54 Patient Tobacco Use Status Current everyday Tobacco 01/01/25 10:54 Tobacco use type Cigarette 01/01/25 10:54 e-Cigarette/Vaping Use Never Used 01/01/25 10:54 PHQ-9: PHQ-9 Score PHQ-9: Total score 0 01/01/25 10:54 Depression Screening Interpretation: Negative Thrive Assessment: Date of Thrive Assessment Date Thrive assessed 01/01/25 01/01/25 10:54 Const General: cooperative, comfortable, no acute distress and alert Neck Neck: Yes no lymphadenopathy Thyroid: Thyroid normal Resp Effort & Inspection: normal respiratory effort Auscultation: clear to auscultation bilaterally Percussion: percussion normal Cardio Jugular venous distension: no JVD Palpation: normal PMI Rate: regular rate Rhythm: regular rhythm Heart sounds: S1 normal heart sound present and S2 normal heart sound present GI Inspection: Yes normal to inspection Palpation (GI): No hepatosplenomegaly present Skin General skin exam: no rashes or lesions noted Extrem General: Yes no clubbing, cyanosis or edema Coding Level of Care Code Est Pt Level 3 (15432) Diagnoses Primary hypertension I10 Hypertension type: primary hypertension Assessment & Plan Assessment & Plan (1) Hypertension: Code(s): I10 - Essential (primary) hypertension Category: Medical Qualifiers: Hypertension type: primary hypertension Qualified Code(s): I10 - Essential (primary) hypertension Plan: stable; same rx
[2025-01-01 10:48] VITALS: BP 140/82; PULSE 86; TEMP 36.3; O2SAT 97; BMI 26.8
--- OUTSIDE RECORDS SUMMARY | 2025-01-01 12:55 | XMS_ITS ---
Author Organization [facility] Address [address] [place] [address] Care Team Providers Care Nursery School Attendant Name Role Phone Winston Phipps MD Primary Care Provider Unavaila Wander Manzanares [phone] REASON FOR VISIT Colonoscopy Encounters Encounter Location Date Provider Diagnosis [facility] [address] [place] [address] 11/20/2024 Wander Vega Plan Of Treatment No Information Progress Notes * LADONNA HAMDOB: [birth year] (69 yo M)Acc No.[id number]:11/20/2024 Patient:?LADONNA HAM :1955???Age:69 Y???Sex:Male Address:[address] [place] [address] [address], [place], [address] * true * Date:? Generated for Catie veliz/Jayme/eTransmitting on:?01/01/2025 12:54 PM EDT
--- OUTSIDE RECORDS SUMMARY | 2025-01-01 12:55 | XMS_ITS ---
Author Organization [facility] Address [address] [place] [address] Care Team Providers Care Hood Fitter Name Role Phone Winston Phipps MD Primary Care Provider Wander Fried Unavailable [phone] Allergies No Known Allergies REASON FOR VISIT Patient presents today for a colon screening Medications Medication SIG (Take, Route, Fr equency, Duration) Notes Start Date End Date Status Motrin prn Active Lisinopril 10 MG Oral for 90 A ctive Social History Tobacco Use: Social History Observation Description Date Details (start date - stop date) Current Smoker NA - NA Tobacco Use/Smoking Question Answer Notes Patient is a current smoker How many cigarettes a day do you smoke? Alcohol Screen Question Answer Notes Did you [...] Never (0 point) Points 1 Interpretation Negative Section Notes: Couple of beers every day; s mokes 1 PPD; heavy drinker until about 2021 Problems Problem Type SNOMED Code ICD Code Onset Dates Problem Status W/U Status Risk Notes Problem Colon cancer screening (128769143) Colon cancer screening (Z12.11) Active confirmed Problem Pre-procedure evaluation check (601089003) Encounter for other preprocedural examination (Z01.818) Active confirmed Vital Signs Blood pressure systolic 00 mm Hg 09/25/20 24 Blood pressure diastolic 00 mm Hg 024 Height 6 ft 1 in in 09/25/2024 Weight 188 lbs 09/25/2024 BMI 24.80 kg/m2 09/25/2024 Encounters Encounter Location Date Provider Diagnosis [facility] [address] [place] [address] 09/25/2024 Wander Vega Colon cancer screeni ng Z12.11 and Encounter for other preprocedural examination Z01.818 Assessments Encounter Date Diagnosis (ICD Code) Assessment Notes Treatment Notes Treatment Clinical Notes Section Notes 09/25/2024 Colon cancer screening (ICD-10 - Z12.11) Overall, Siva seems to be doing well from a GI standpoint and is not having any new or worrisome GI complaints. Given his age and his last colonoscopy being well over 10 years ago, I did recommend a followup screening colonoscopy. We did review the rationale for this regard to colon cancer prevention and/or early detection. Full consent was obtained for this, including risks of bleeding and perforation. The procedure will be done with monitored anesthesia care. We did review the importance of abstaining from alcohol and trying to stop smoking as well. Siva was comfortable with this plan. Thank you again for allowing me to participate in Siva's care. I shall continue to keep you advised of his progress. 09/25/2024 Encounter for other preprocedural examination (ICD-10 - Z01.818) Overall, Siva seems to be doing well from a GI standpoint and is not having any new or worrisome GI complaints. Given his age and his last colonoscopy being well over 10 years ago, I did recommend a followup screening colonoscopy. We did review the rationale for this regard to colon cancer prevention and/or early detection. Full consent was obtained for this, including risks of bleeding and perforation. The procedure will be done with monitored anesthesia care. We did review the importance of abstaining from alcohol and trying to stop smoking as well. Siva was comfortable with this plan. Thank you again for allowing me to participate in Siva's care. I shall continue to keep you advised of his progress. Plan Of Treatment Future Test Test Name Order Date COLONOSCOPY 09/25/2024 Next Appt Details Follow Up: prn, Reason: Progress Notes * JITENDRACHECO MACKLADONNA JDOB: [birth year] (69 yo M)Acc No.[id number]:09/25/2024 Progress Notes Patient:?JITENDRA, LADONNA Saravia Provider:?Wander Vega MD :1955???Age:69 Y???Sex:Male Eric e:09/25/2024 Address:[address] [place] [address] [address], [place] Pcp:Winston Phipps MD Subjective: * Chief Complaints: * ???Patient presents today fo r a colon screening * HPI: ???incontinence:? I saw Siva in the office today for evaluation of colorectal cancer screening. ?As you know, Siva is a 69-year-old male who describes having undergone a negative Screening colonoscopy in his early 50s with Dr. Gates. He has not had a colonoscopy since then. He enjoys a good appetite, without any significant heartburn or dysphagia. His bowel movements have been regular, without any hematochezia nor melena. He denies abdominal pain, jaundice, nor unintentional weight loss. He denies any known family history of colorectal cancer. ?He does describe that he was a heavy drinker up until 2 years ago and presently does has about 2 beers every day. He denies any associated liver disease from alcohol use. He does smoke one pack of cigarettes every day as well. * ROS:?General/Constitutional:?Change in appetite?denies.?Chills?denies.?Fatigue?denies.?Ophthalmologic:?Comments?all negative.?ENT:?Comments?all negative.?Respiratory:?hemoptysis?denies.?Cough?denies.?Cardiovascular:?Chest pain?denies.?Orthopnea?denies.?Gastrointestinal:?Comments?See HPI for details.?Genitourinary:?Hematuria?denies.?Dysuria?denies.?Musculoskeletal:?Painful joints?denies.?Weakness?denies.?Skin:?Itching?denies.?Rash?denies.?Neurologic:?Headache?denies.?Seizures?denies.?Psychiatric:?Comments?all negative.? * Medical History:? * Surgical History:?Back surge ry 1979' * Hospitalization/Major Diagno stic Procedure:?No Hospitalization History. * Family History:?Father: dece ased.?Mother: , lung cancer.? No known hx of colon cancer. * Social History:?Tobacco Use:?Tobacco Use/Smoking?Patient is a?current smoker,?How many cigarettes a day do you smoke??21-30.?Drugs/Alcohol:?Alcohol Screen?Did you have a drink containing alcohol in the past year??Yes,?How often did you have a drink containing alcohol in the past year??Monthly or less (1 point), How many drinks did you have on a typical day when you were drinking in the past year??1 or 2 drinks (0 point),?How often did you have 6 or more drinks on one occasion in the past year??Never (0 point),?Points?1,?Interpretation?Negative.?Miscellaneous:?Marital status: single. Occupation: retired. ???Couple of beers every day; smokes 1 PPD; heavy drinker until about 2021. * Medications:?TakingMotrin , Notes: prnLisinopril 10 MG Tablet Oral Medication List reviewed and reconciled with the patientTaking Motrin , Notes: prnTaking Lisinopril 10 MG Tablet Oral Medication List reviewed and reconciled with the patient * Allergies:?N.K.D.A.yes[Aller gies Verified] Objective: * Vitals:?Wt: 188 lbs, Ht: 6 f t 1 in, BMI:24.80 Index, BP: 00/00 mm Hg. * Examination: ???General Examination: ?GENERAL APPEARANCE:?pleasant, well nourished, well developed, in no acute distress.?EYES:?sclera non-icteric.?ORAL CAVITY:?mucosa moist.?NECK/THYROID:?no cervical lymphadenopathy, neck supple.?SKIN:?nonjaundiced, no spider angiomata.?HEART:?S1, S2 normal.?LUNGS:?clear to auscultation bilaterally.?ABDOMEN:?normal bowel sounds, no guarding or rigidity, no guarding or rigidity, no masses palpable, soft, nontender, nondistended.?EXTREMITIES:?no edema.?NEUROLOGIC:?alert and oriented.? Assessment: * Assessment: 1.?Encounter for other prepr ocedural examination - Z01.818 (Primary)?2.?Colon cancer screening - Z12.11? Overall, Siva seems to be do ing well from a GI standpoint and is not having any new or worrisome GI complaints. Given his age and his last colonoscopy being well over 10 years ago, I did recommend a followup screening colonoscopy. We did review the rationale for this regard to colon cancer prevention and/or early detection. Full consent was obtained for this, including risks of bleeding and perforation. The procedure will be done with monitored anesthesia care. We did review the importance of abstaining from alcohol and trying to stop smoking as well. Siva was comfortable with this plan. Thank you again for allowing me to participate in Siva's care. I shall continue to keep you advised of his progress. Plan: * Treatment: * Procedure Codes:?3017F COLOR ECTAL CA SCREEN DOC [id number] Pt scrn tbco and id as [id number] BP SCR NOT PRFRM REC REASON NOS * Preventive Medicine:? ??Screenings:?Fall Risk Screening?Fall Risk Assessment:?No falls in the past year walks with cane ,?Screening:?No falls in the past year,?Assessment:?Not performed, no reason specified,?Plan of Care:?Not documented, no reason specified.? * Follow Up:?prn * * Sign off status: Completed true * Provider:?Wander Vega MD Date:? 024 Generated for Catie veliz/Jayme/Jareditting on:?01/01/2025 12:55 PM EDT History and Physical Notes * HPI (History of Present Illness) Category Sub-Category Detail Notes Category Not es incontinence I saw Siva in the office today for evaluation of colorectal cancer screening. As you know, Siva is a 69-year-old male who describes having undergone a negative Screening colonoscopy in his early 50s with Dr. Gates. He has not had a colonoscopy since then. He enjoys a good appetite, without any significant heartburn or dysphagia. His bowel movements have been regular, without any hematochezia nor melena. He denies abdominal pain, jaundice, nor unintentional weight loss. He denies any known family history of colorectal cancer. He does describe that he was a heavy drinker up until 2 years ago and presently does has about 2 beers every day. He denies any associated liver disease from alcohol use. He does smoke one pack of cigarettes every day as well. Examination Category Sub-Category Detail Notes Category Not es General Examination GENERAL APPEARANCE: pleasant , well [...]
--- OUTSIDE RECORDS SUMMARY | 2025-01-01 12:55 | XMS_ITS | Clinical Summary ---
Author Organization [facility] Address [address] [place] [address] Phone Care Team Providers Care Food Service Counter Clerk Name Role Phone Physician, No Pcp Primary Care Provider Unavaila ble Encounters Date Type Department Care Team Description 10/10/2024 10:26 AM EST - 10/10/2024 11:59 PM EST Hospital Encounter [facility] PET Scan [address] [place] [address] Other nonspecific abnormal finding of [...] large upper retroperitoneal bulky lymphadenopathy. Tracheal narrowing knil-ia-gecn likely from right pretracheal lymph node or tracheomalacia. Suspect underlying centrilobular emphysema. There is postobstructive atelectasis posterior segment right upper lobe -------- FINAL REPORT -------- Dictated By: Domingo Novoa Dictated Date: 10/10/2024 13:57 ET Assigned Physician: Domingo Novoa Reviewed and Electronically Signed By: Domingo Novoa Signed Date: 10/10/2024 14:28 ET Workstation ID: [id number] Transcribed By: Self Edit Transcribed Date: 10/10/2024 [...] and large upper retroperitonealbulky lymphadenopathy. Tracheal narrowing [id number] likely from right pretracheal lymph nodeor tracheomalacia. Suspect underlying centrilobular emphysema. There ispostobstructive atelectasis posterior segment right upper lobe -------- FINAL REPORT -------- Dictated By: Domingo Novoa Dictated Date: 10/10/2024 13:57 ET Assigned Physician: Domingo Novoa Reviewed and Electronically Signed By: Domingo Novoa Signed Date: 10/10/2024 14:28 ET Workstation ID: [id number] Transcribed By: Self Edit Transcribed Date: 10/10/2024 14:02 ET Josemanuel Cesar MD IMG NM PROCEDURES Final Re sult from Last 3 Months Insurance [employer]ARE Care Teams Food Service Counter Clerk Relationship Specialty Start Date End Date Physician, No Pcp PCP - General 10/11/24
--- OUTSIDE RECORDS SUMMARY | 2025-01-01 12:55 | XMS_ITS | Patient Health Record ---
Author Organization [facility] Address [address] [place] [address] Care Team Providers Care Basketball Scout Name Role Phone Moise WALLACE, Winston Primary Care Provider Wander Fried Unavailable [phone] Allergies No Known Allergies Reason For Referral No Information Medications Medication SIG (Take, Route, Fr equency, [...] Status Risk Notes Problem Colon cancer screening (263291741) Colon cancer screening (Z12.11) Active confirmed Problem Pre-procedure evaluation check (814244853) Encounter for other preprocedural examination (Z01.818) Active confirmed Vital Signs Blood pressure diastolic 00 mm Hg 09/25/2024 Height 6 ft 1 in in 09/25/2024 Blood pressure systolic 00 mm Hg 09/25/2024 Weight 188 lbs 09/25/2024 BMI 24.80 kg/m2 09/25/2024 Encounters Encounter Location Date Provider Diagnosis [facility] [address] [place] [address] 09/25/2024 Wander Vega Colon cancer screeni ng Z12.11 and Encounter for other preprocedural examination Z01.818 [facility] [address] [place] [address] 11/20/2024 Wander Vega Assessments Encounter Date Diagnosis (ICD Code) Assessment [...] Insured Coverage Start Date Coverage End Date [facility] [address] [address] [place] [address] [id number] JITENDRA LADONNA Self - patient is the insured Medical (General) History Medical History History ICD Code Hypertension Denies LA,DM,CVA,Lung disease,renal dise ase Arthritis Negative screening colonoscopy > [address] Gates Surgical History Surgery Date(Month/Year) Back surgery
== END 2025-01-01 11:09 | disposition home or self-care (01) ==
LOC: HO.HMCH 10:44
PROVIDERS: PCP Internal Medicine; Visit Provider Internal Medicine
DX: I10 Essential (primary) hypertension (principal)

== ENCOUNTER → 2025-01-01 10:43 | Outpatient (BNVA) | payer OTHER, SELFPAY | PROVIDERS: PCP Internal Medicine; Visit Provider Internal Medicine ==

== ENCOUNTER 2025-01-14 13:39 | Outpatient (REF) | payer OTHER, SELFPAY ==
--- NOTE | ~2025-01-14 | US_ITS ---
EXAMINATION: US LOWER EXTREMITY VEINS LIMITED FOLLOW UP LEFT HISTORY: Left lower extremity edema COMPARISON: There are no prior studies for comparison. TECHNIQUE: Duplex and color Doppler sonographic examination of the deep venous system of the left lower extremity was performed. FINDINGS: The common femoral, superficial femoral, and popliteal veins are patent demonstrating normal compressibility, spontaneous flow, and augmentation. There is a normal color and spectral Doppler waveform appearance of the visualized deep venous system above the knee. The posterior tibial and peroneal veins are patent. There is edema of the left lower leg. US/US venous duplex LE LT IMPRESSION: No evidence of acute DVT in the left lower extremity. Electronically signed by: Wander Toscano MD 01/15/2025 06:58 AM EDT
== END 2025-01-14 13:40 | disposition home or self-care (01) ==
LOC: HO.US 13:39
PROVIDERS: PCP Internal Medicine; Visit Provider Internal Medicine
DX: R60.0 Localized edema (principal)
CPT/HCPCS: 93971

== ENCOUNTER → 2025-01-14 13:41 | Outpatient (BNV) | payer OTHER, SELFPAY | PROVIDERS: PCP Internal Medicine; Visit Provider Radiology Diagnostic Radiology | DX: R22.43 Localized swelling, mass and lump, lower limb, bilateral (principal) | CPT/HCPCS: 93971 ==

== ENCOUNTER 2025-01-23 09:30 | Outpatient (AMB) | payer MEDICARE, SELFPAY ==
--- NOTE | 2025-01-23 10:36 | HO.NEPHOV ---
Vital Signs 01/23/25 10:37 Height 6 ft 1 in Weight 198 lb 6 oz BMI 26.2 BP 120/70 Blood Pressure Location Rt brachial Position Sitting Pulse 76 Pulse Source Pulse Oximeter Pulse Oximetry (%) 96 Oxygen Delivery Method Room Air Intake Visit Reasons: Hyperkalemia-Conf Rn Hemodialysis Required: No Accompanied by: Self / Same As Patient Allergies No Known Allergies Allergy (Verified 01/23/25 10:37) HPI Comments Details: Siva was seen in follow up for hyponatremia. He recently carries a diagnosis of poorly-differentiated lung cancer with liver metastases with a new ill-defined mass in the region of the head of the pancreas. He has H/O hypertension and excess alcohol intake as well as smoking. He has been having weight loss but denies continued excess beer drinking, nausea, vomiting or diarrhea. He is depressed about the diagnosis. He has a very strong family H/O malignancy. He is not taking thiazide diuretics. He has H/O COPD and hyponatremia in the past. He is not taking any anti depressant medication. He has no H/O heart failure. He has no mental status changes or any H/O seizures. Recently his serum sodium had gone down to 121 but improved with PO urea which he finds it to be too expensive.( last dose was last ) [facility] Medical History Lung cancer COPD (chronic obstructive pulmonary disease) Pancreatic mass Lymphadenopathy Lung mass Nicotine dependence, cigarettes, uncomplicated Hypertension SVT (supraventricular tachycardia) Edema Pressure ulcer Alcohol use disorder Cognitive disorder Rhabdomyolysis Surgical History History of colonoscopy History of lumbar laminectomy Family History Father No problems noted. Mother Lung cancer Family/Other Lung cancer Throat cancer Social History Household Members: None Housing: Apartment Are you a primary healthcare social worker to a significant other at home: No Do you presently have visiting nurse or other home services: No Unable to assess alcohol history related to: Unable to respond Alcohol intake: current Alcohol intake frequency: 3 or more drinks per day Alcohol type: beer Comment: camera not available Patient Tobacco Use Status: Current everyday Tobacco user Tobacco use type: Cigarette Cigarette Packs Per Day: 0.5 Years Smoked: (onset 16yo, 1-1.5ppd x 53yrs, 60+PYH) e-Cigarette/Vaping Use: Never Used Second Hand Smoke Exposure: Yes service: No 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 identity: Male Cognitive needs: Yes (Cane) Hearing needs: No Vision needs: Yes (Glasses) Review of Systems Const All systems reviewed & are unremarkable except as noted in HPI and below Physical Exam Vital Signs: Last Vital Signs Pulse 76 01/23/25 10:37 BP 120/70 01/23/25 10:37 Pulse Ox 96 01/23/25 10:37 Oxygen Delivery Method Room Air 01/23/25 10:37 BMI result Body Mass Index 26.2 Const General: comfortable and no acute distress Orientation/consciousness: patient oriented x3 HEENT Head: Yes normocephalic Mouth: Normal oral and palatal mucosa present Eyes EOM: EOMs intact bilaterally Neck Neck: Yes supple Resp Auscultation: clear to auscultation bilaterally Cardio Jugular venous distension: no JVD Rate: regular rate GI Palpation (GI): Soft to palpation Auscultation: normal bowel sounds General: Yes no CVA tenderness Back/Spine/Pelvis Back: no CVA tenderness Skin General skin exam: no rashes or lesions noted Neuro General: patient oriented x3 and moves all extremities Extrem General: Yes no pedal edema Results Reviewed Nephrology Results: Hgb 9.3 g/dl (14.0-18.0) L 01/18/25 WBC 8.5 X10*3/uL (4.8-10.8) 01/18/25 Plt Count 716 X10*3/uL (160-400) H 01/18/25 Sodium 129 mmol/L (135-145) L 01/18/25 Potassium 4.5 mmol/L (3.3-5.1) 01/18/25 Chloride 96 mmol/L (96-108) 01/18/25 Carbon Dioxide 25 mmol/L (22-29) 01/18/25 BUN 21 mg/dL (9-16) H 01/18/25 Creatinine 0.76 mg/dL (0.5-1.4) 01/18/25 Calcium 9.1 mg/dL (8.4-10.2) 01/18/25 Assessment & Plan Assessment & Plan (1) Hyponatremia: Code(s): E87.1 - Hypo-osmolality and hyponatremia Category: Medical Plan He has hyponatremia due to excess ADH. He has no H/O HF but has h/o pulmonary disease in the past until his recent diagnosis of metastatic malignancy. His serum K has been on the high side raising possibility of adrenal insufficiency even though he has no other classical features of it. His cortisol level was OK. I reviewed his recent imaging studies which did not show any adrenal lesions. He is currently on fluid restriction and has been started on PO Urea which he should continue. He is hypertensive and has edema even prior to initiation of Amlodipine. His lisinopril has been recently changed to Amlodipine given high serum K. He could continue on current dose of PO urea for now and does not warrant initiation of Tolvaptan. He gets regular blood work for chemotherapy and we shall keep a close watch on his blood chemistry and renal function. Follow up given Medications: Refilled urea 1 packet PO DAILY 30 days 20 ea 6RF Coding Level of Care Code Est Pt Level 4 (70847) Diagnoses Hyponatremia E87.1
[2025-01-23 10:37] VITALS: BP 120/70; PULSE 76; O2SAT 96; BMI 26.2
--- OUTSIDE RECORDS SUMMARY | 2025-01-23 10:41 | XMS_ITS ---
Author Organization [facility] Address [address] [place] [address] Care Team Providers Care Warehouse Assembly Worker Name Role Phone Moise WALLACE, Winston Primary Care Provider Unavaila Wander Manzanares [phone] REASON FOR VISIT screening Encounters Encounter Location Date Provider Diagnosis [facility] [place] [address] [place], [place] [phone] 01/02/2025 Wander Vega Plan Of Treatment No Information Progress Notes * JITENDRA LADONNA SaraviaDOB: [birth year] (69 yo M)Acc No.[id number]:01/02/2025 COLON WITH MAC Patient:?CHECO HAMFAVIO Saravia Provider:?Wander Vega MD :1955???Age:69 Y???Sex:Male Eric e:01/02/2025 Address:[address] [place] [address] [address], [place], [place] Pcp:Winston Phipps MD Subjective: * Chief Complaints: * ???1. Screening. * Medical History:? Objective: * Vitals:? Assessment: Plan: * Treatment: * * The named appointment provid er may or may not be the originator of this progress note, and it is not deemed complete until electronically signed by the appointment provider. Sign off status: Pending * Provider:?Wander Vega MD Date:? 025 Generated for Catie veliz/Jayme/eTransmitting on:?01/23/2025 10:41 AM EDT
--- OUTSIDE RECORDS SUMMARY | 2025-01-23 10:41 | XMS_ITS ---
Author Organization [facility] Address [address] [place] [address] Care Team Providers Care Car Pusher Name Role Phone Winston Phipps MD Primary Care Provider Unavaila Wander Manzanares [phone] REASON FOR VISIT Colonoscopy Encounters Encounter Location Date Provider Diagnosis [facility] [address] [place] [address] 11/20/2024 Wander Vega Plan Of Treatment No Information Progress Notes * LADONNA HAMDOB: [birth year] (69 yo M)Acc No.[id number]:11/20/2024 Patient:?LADONNA HAM :1955???Age:69 Y???Sex:Male Address:[address] [place] [address] [address], [place], [address] * true * Date:? Generated for Catie veliz/Jayme/eTransmitting on:?01/23/2025 10:41 AM EDT
--- OUTSIDE RECORDS SUMMARY | 2025-01-23 10:41 | XMS_ITS | Clinical Summary ---
Author Organization [facility] Address [address] [place] [address] Phone Care Team Providers Care Filenet Architect Name Role Phone Physician, No Pcp Primary Care Provider Unavaila ble Social History Tobacco Use Types Packs/Day Years [...] 2024 Influenza Vaccine (#1) 2024 RSV Immunization Adult Patie nts (1 - 1-dose 75+ series) 2032 HIB [...] on patient's age to complete this topic Insurance [employer] MEDICARE Care Teams Filenet Architect Relationship Specialty Start Date End Date Physician, No Pcp PCP - General 10/11/24
--- OUTSIDE RECORDS SUMMARY | 2025-01-23 10:41 | XMS_ITS | Patient Health Record ---
Author Organization [facility] Address [address] [place] [address] Care Team Providers Care Road Mechanic Name Role Phone Moise WALLACE, Winston Primary Care Provider Wander Fried Unavailable [phone] Allergies No Known Allergies Reason For Referral [...] Status Risk Notes Problem Colon cancer screening (262066898) Colon cancer screening (Z12.11) Active confirmed Problem Pre-procedure evaluation check (734033259) Encounter for other preprocedural examination (Z01.818) Active confirmed Vital Signs Blood pressure diastolic 00 mm Hg 09/25/2024 Height 6 ft 1 in in 09/25/2024 Blood pressure systolic 00 mm Hg 09/25/2024 Weight 188 lbs 09/25/2024 BMI 24.80 kg/m2 09/25/2024 Encounters Encounter Location Date Provider Diagnosis [facility] [address] [place] [address] 09/25/2024 Wander Vega Colon cancer screeni ng Z12.11 and Encounter for other preprocedural examination Z01.818 [facility] [address] [place] [address] 11/20/2024 Wander Vega Assessments Encounter Date Diagnosis [...] Insured Coverage Start Date Coverage End Date [facility] [address] [address] [place] [id number] JITENDRA LADONNA Self - patient is the insured Medical (General) History Medical History History ICD Code Hypertension Denies [place],DM,CVA,Lung disease,renal dise ase Arthritis Negative screening colonoscopy > [address] Gates Surgical History Surgery Date(Month/Year) Back surgery
--- OUTSIDE RECORDS SUMMARY | 2025-01-23 10:41 | XMS_ITS ---
Author Organization [facility] Address [address] [place] [address] Care Team Providers Care Pneudraulic Systems Mechanic Name Role Phone Winston Phipps MD Primary Care Provider Wander Fried Unavailable [phone] Allergies No Known Allergies REASON FOR VISIT [...] Status Risk Notes Problem Colon cancer screening (733316427) Colon cancer screening (Z12.11) Active confirmed Problem Pre-procedure evaluation check (428705659) Encounter for other preprocedural examination (Z01.818) Active confirmed Vital Signs Blood pressure systolic 00 mm Hg 09/25/20 24 Blood pressure diastolic 00 mm Hg 024 Height 6 ft 1 in in 09/25/2024 Weight 188 lbs 09/25/2024 BMI 24.80 kg/m2 09/25/2024 Encounters Encounter Location Date Provider Diagnosis [facility] [address] [place] [address] 09/25/2024 Wander Vega Colon cancer screeni ng [...] JITENDRACHECO MACKLADONNA JDOB: [birth year] (69 yo M)Acc No.[id number]:09/25/2024 Progress Notes Patient:?JITENDRA, LADONNA Saravia Provider:?Wander Vega MD :1955???Age:69 Y???Sex:Male Eric e:09/25/2024 Address:[address] [place] [address] [address], [facility] Pcp:Winston Phipps MD Subjective: * Chief Complaints: [...] Procedure Codes:?3017F COLOR ECTAL CA SCREEN DOC [id number] Pt scrn tbco and id as [id number] BP SCR NOT PRFRM REC REASON NOS * Preventive Medicine:? ??Screenings:?Fall Risk Screening?Fall Risk Assessment:?No falls in the past year walks with cane ,?Screening:?No falls in the past year,?Assessment:?Not performed, no reason specified,?Plan of Care:?Not documented, no reason specified.? * Follow Up:?prn * * Sign off status: Completed true * Provider:?Wander Vega MD Date:? 024 Generated for Catie veliz/Jayme/Yaakovsmitting on:?01/23/2025 10:41 AM EDT History and Physical Notes * HPI [...]
== END 2025-01-23 11:08 | disposition home or self-care (01) ==
LOC: HO.HKA 09:31
PROVIDERS: PCP Internal Medicine; Visit Provider Internal Medicine Nephrology
DX: E87.1 Hypo-osmolality and hyponatremia (principal)
CPT/HCPCS: 99214

== ENCOUNTER → 2025-01-23 09:30 | Outpatient (BNVA) | payer MEDICARE, SELFPAY | PROVIDERS: PCP Internal Medicine; Visit Provider Internal Medicine Nephrology | DX: E87.1 Hypo-osmolality and hyponatremia (principal) | CPT/HCPCS: 99212 ==

== ENCOUNTER 2025-02-22 10:28 | Outpatient (AMB) | payer MEDICARE, SELFPAY ==
--- NOTE | 2025-02-22 10:41 | HO.NEPHOV_ITS ---
Vital Signs 02/22/25 10:43 Height 6 ft 1 in Weight 200 lb 6 oz BMI 26.4 BP 128/60 Blood Pressure Location Rt brachial Position Sitting Pulse 91 Pulse Source Pulse Oximeter Pulse Oximetry (%) 95 Oxygen Delivery Method Room Air Intake Visit Reasons: 1 MO FU-[facility] Transportation Agent Required: No Accompanied by: Self / Same As Patient Allergies No Known Allergies Allergy (Verified 02/22/25 11:02) Do you need a note to return to daycare/school/sports/work: No HPI Comments Details: Siva was seen in follow up for hyponatremia. He recently carries a diagnosis of poorly-differentiated lung cancer with liver metastases with a new ill-defined mass in the region of the head of the pancreas. He has H/O hypertension and excess alcohol intake as well as smoking. He has been having weight loss but denies continued excess beer drinking, nausea, vomiting or diarrhea. He is depressed about the diagnosis. He has a very strong family H/O malignancy. He is not taking thiazide diuretics. He has H/O COPD and hyponatremia in the past. He is not taking any anti depressant medication. He has no H/O heart failure. He has no mental status changes or any H/O seizures. Recently his serum sodium is stable [facility] Medical History Lung cancer COPD (chronic obstructive pulmonary disease) Pancreatic mass Lymphadenopathy Lung mass Nicotine dependence, cigarettes, uncomplicated SVT (supraventricular tachycardia) Edema Pressure ulcer Alcohol use disorder Cognitive disorder Rhabdomyolysis Hypertension Surgical History History of colonoscopy History of lumbar laminectomy Family History Father No problems noted. Mother Lung cancer Family/Other Lung cancer Throat cancer Social History Household Members: None Housing: Apartment Are you a primary inspector health care facilities to a significant other at home: No Do you presently have visiting nurse or other home services: No Unable to assess alcohol history related to: Unable to respond Alcohol intake: current Alcohol intake frequency: 3 or more drinks per day Alcohol type: beer Comment: camera not available Patient Tobacco Use Status: Current everyday Tobacco user Tobacco use type: Cigarette Cigarette Packs Per Day: 0.5 Years Smoked: (onset 16yo, 1-1.5ppd x 53yrs, 60+PYH) e-Cigarette/Vaping Use: Never Used Second Hand Smoke Exposure: Yes service: No 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 identity: Male Cognitive needs: Yes (Cane) Hearing needs: No Vision needs: Yes (Glasses) Review of Systems Const All systems reviewed & are unremarkable except as noted in HPI and below Physical Exam Vital Signs: Last Vital Signs Pulse 91 02/22/25 10:43 BP 128/60 02/22/25 10:43 Pulse Ox 95 02/22/25 10:43 Oxygen Delivery Method Room Air 02/22/25 10:43 BMI result Body Mass Index 26.4 Const General: comfortable and no acute distress Orientation/consciousness: patient oriented x3 HEENT Head: Yes normocephalic Mouth: Normal oral and palatal mucosa present Eyes EOM: EOMs intact bilaterally Neck Neck: Yes supple Resp Auscultation: clear to auscultation bilaterally Cardio Jugular venous distension: no JVD Rate: regular rate GI Palpation (GI): Soft to palpation Auscultation: normal bowel sounds General: Yes no CVA tenderness Back/Spine/Pelvis Back: no CVA tenderness Skin General skin exam: no rashes or lesions noted Neuro General: patient oriented x3 and moves all extremities Extrem General: Yes no pedal edema Results Reviewed Nephrology Results: Hgb 8.2 g/dl (14.0-18.0) L 02/15/25 WBC 3.6 X10*3/uL (4.8-10.8) L 02/15/25 Plt Count 213 X10*3/uL (160-400) 02/15/25 Sodium 133 mmol/L (135-145) L 02/15/25 Potassium 4.6 mmol/L (3.3-5.1) 02/15/25 Chloride 100 mmol/L (96-108) 02/15/25 Carbon Dioxide 27 mmol/L (22-29) 02/15/25 BUN 12 mg/dL (9-16) 02/15/25 Creatinine 0.65 mg/dL (0.5-1.4) 02/15/25 Calcium 8.7 mg/dL (8.4-10.2) 02/15/25 Assessment & Plan Assessment & Plan (1) Hyponatremia: Code(s): E87.1 - Hypo-osmolality and hyponatremia Category: Medical Plan He has hyponatremia due to excess ADH. He has no H/O HF but has h/o pulmonary disease in the past until his recent diagnosis of metastatic malignancy. His serum K has been on the high side raising possibility of adrenal insufficiency even though he has no other classical features of it. His cortisol level was OK. I reviewed his recent imaging studies which did not show any adrenal lesions. He is currently on fluid restriction and his serum Na is stable. His BP is well controlled on current medications. He gets regular blood work for chemotherapy and we shall keep a close watch on his blood chemistry and renal function. Follow up given Coding Level of Care Code Est Pt Level 4 (51365) Diagnoses Hyponatremia E87.1
[2025-02-22 10:43] VITALS: BP 128/60; PULSE 91; O2SAT 95; BMI 26.4
--- OUTSIDE RECORDS SUMMARY | 2025-02-22 11:32 | XMS_ITS | Clinical Summary ---
Author Organization [facility] Address [address] [place] [address] Phone Care Team Providers Care Alternative Education Teacher Name Role Phone Physician, No Pcp Primary [...] - 2023-2 5 season) 2024 Influenza Vaccine (Season Ended) 2025 RSV Immunization Adult Patie nts (1 - [...] age to complete this topic Meningococcal B Vaccine Aged Out No l onger eligible based on patient's age to complete this topic RSV Immunization Patients Un micky 20 months Aged Out No longer eligible b ased on patient's age to complete this topic Varicella Vaccines Aged Out No longer eligible based on patient's age to complete this topic Insurance [place] [address] Care Teams Alternative Education Teacher Relationship Specialty Start Date End Date Physician, No Pcp PCP - General 10/11/24
--- OUTSIDE RECORDS SUMMARY | 2025-02-22 11:32 | XMS_ITS ---
Author Organization [facility] Address [address] [place] [address] Care Team Providers Care Siding Applicator Name Role Phone Winston Phipps MD Primary Care Provider Unavaila Wander Manzanares [phone] REASON FOR VISIT Colonoscopy Encounters Encounter Location Date Provider Diagnosis [facility] [address] [place] [address] 11/20/2024 Wander Vega Plan Of Treatment No Information Progress Notes * LADONNA HAMDOB: [birth year] (69 yo M)Acc No.[id number]:11/20/2024 Patient:?LADONNA HAM :1955???Age:69 Y???Sex:Male Address:[address] [place] [address] [address], [place], [address] * true * Date:? Generated for Catie veliz/Jayme/eTransmitting on:?02/22/2025 11:32 AM EDT
--- OUTSIDE RECORDS SUMMARY | 2025-02-22 11:32 | XMS_ITS ---
Author Organization [facility] Address [address] [place] [address] Care Team Providers Care Mail Processing Associate Name Role Phone Moise WALLACE, Winston Primary Care Provider Unavaila Wander Manzanares [phone] REASON FOR VISIT screening Encounters Encounter Location Date Provider Diagnosis [facility] [place] [address] [place], [place] [phone] 01/02/2025 Wander Vega Plan Of Treatment No Information Progress Notes * JITENDRA LADONNA SaraviaDOB: [birth year] (69 yo M)Acc No.[id number]:01/02/2025 COLON WITH MAC Patient:?CHECO HAMFAVIO Saravia Provider:?Wander Vega MD :1955???Age:69 Y???Sex:Male Eric e:01/02/2025 Address:[address] [place] [address] [address], [facility] Pcp:Winston Phipps MD Subjective: * Chief Complaints: [...] MD Date:? 025 Generated for Catie veliz/Jayme/eTransmitting on:?02/22/2025 11:32 AM EDT
--- OUTSIDE RECORDS SUMMARY | 2025-02-22 11:32 | XMS_ITS | Patient Health Record ---
Author Organization [facility] Address [address] [place] [address] Care Team Providers Care Lockstitch Shoulder Joiner Name Role Phone Moise WALLACE, Winston Primary Care Provider Wander Fried Unavailable [phone] Allergies No Known Allergies Reason For Referral [...] Status Risk Notes Problem Colon cancer screening (464234932) Colon cancer screening (Z12.11) Active confirmed Problem Pre-procedure evaluation check (772875373) Encounter for other preprocedural examination (Z01.818) Active confirmed Vital Signs Blood pressure diastolic 00 mm Hg 09/25/2024 Height 6 ft 1 in in 09/25/2024 Blood pressure systolic 00 mm Hg 09/25/2024 Weight 188 lbs 09/25/2024 BMI 24.80 kg/m2 09/25/2024 Encounters Encounter Location Date Provider Diagnosis [facility] [address] [place] [address] 09/25/2024 Wander Vega Colon cancer screeni ng Z12.11 and Encounter for other preprocedural examination Z01.818 [facility] [address] [place] [address] 11/20/2024 Wander Vega Assessments Encounter Date Diagnosis [...] Insured Coverage Start Date Coverage End Date [facility] [address] [address] [place] [id number] JITENDRA LADONNA Self - patient is the insured Medical (General) History Medical History History ICD Code Hypertension Denies [place],DM,CVA,Lung disease,renal dise ase Arthritis Negative screening colonoscopy > [address] Gates Surgical History Surgery Date(Month/Year) Back surgery
--- OUTSIDE RECORDS SUMMARY | 2025-02-22 11:33 | XMS_ITS ---
Author Organization [facility] Address [address] [place] [address] Care Team Providers Care Digital Imaging Technician Name Role Phone Winston Phipps MD Primary Care Provider Wander Fried Unavailable [phone] Allergies No Known Allergies REASON FOR VISIT [...] many cigarettes a day do you smoke? - Alcohol Screen Question Answer Notes Did you [...] Status Risk Notes Problem Colon cancer screening (255566605) Colon cancer screening (Z12.11) Active confirmed Problem Pre-procedure evaluation check (425967233) Encounter for other preprocedural examination (Z01.818) Active confirmed Vital Signs Blood pressure systolic 00 mm Hg 09/25/20 24 Blood pressure diastolic 00 mm Hg 024 Height 6 ft 1 in in 09/25/2024 Weight 188 lbs 09/25/2024 BMI 24.80 kg/m2 09/25/2024 Encounters Encounter Location Date Provider Diagnosis [facility] [address] [place] [address] 09/25/2024 Wander Vega Colon cancer screeni ng [...] JITENDRACHECO MACKLADONNA JDOB: [birth year] (69 yo M)Acc No.[id number]:09/25/2024 Progress Notes Patient:?JITENDRA, LADONNA Saravia Provider:?Wander Vega MD :1955???Age:69 Y???Sex:Male Eric e:09/25/2024 Address:[address] [place] [address] [address], [place] Pcp:Winston Phipps MD Subjective: * Chief Complaints: [...] Procedure Codes:?3017F COLOR ECTAL CA SCREEN DOC [id number] Pt scrn tbco and id as [id number] BP SCR NOT PRFRM REC REASON NOS * Preventive Medicine:? ??Screenings:?Fall Risk Screening?Fall Risk Assessment:?No falls in the past year walks with cane ,?Screening:?No falls in the past year,?Assessment:?Not performed, no reason specified,?Plan of Care:?Not documented, no reason specified.? * Follow Up:?prn * * Sign off status: Completed true * Provider:?Wander Vega MD Date:? 024 Generated for Catie veliz/Jayme/Yaakovsmitting on:?02/22/2025 11:32 AM EDT History and Physical Notes * HPI (History of Present Illness) Category Sub-Category Detail Notes Category Not es incontinence I saw Siva in the office today for evaluation of colorectal cancer screening. As you know, Siav is a 69-year-old male who describes having [...]
== END 2025-02-22 11:17 | disposition home or self-care (01) ==
LOC: HO.HKA 10:29
PROVIDERS: PCP Internal Medicine; Visit Provider Internal Medicine Nephrology
DX: E87.1 Hypo-osmolality and hyponatremia (principal)
CPT/HCPCS: 99214

== ENCOUNTER → 2025-02-22 10:28 | Outpatient (BNVA) | payer MEDICARE, SELFPAY | PROVIDERS: PCP Internal Medicine; Visit Provider Internal Medicine Nephrology | DX: E87.1 Hypo-osmolality and hyponatremia (principal) | CPT/HCPCS: 99212 ==

== ENCOUNTER → 2025-02-28 09:27 | Outpatient (BNVA) | payer MEDICARE, SELFPAY | PROVIDERS: PCP Internal Medicine; Visit Provider Dietitian, Registered | DX: Z13.89 Encounter for screening for other disorder (principal) ==

== ENCOUNTER 2025-03-12 09:42 | Outpatient (REF) | payer MEDICARE, OTHER, SELFPAY ==
--- NOTE | ~2025-03-12 | CT_ITS ---
CLINICAL HISTORY: Restaging CT chest with contrast Comparison: CR/SR - XR CHEST 1V - 11/04/22 16:[address]/SR - CT ABDOMEN PELVIS WO IV CON - 10/18/22 14:32 EST Findings: Moderate emphysematous changes throughout the lungs. There is a spiculated pulmonary nodule within the posterior aspect of the right upper lobe measuring 17 x 21 mm in size. Immediately lateral to this is an additional spiculated right upper lobe pulmonary nodule measuring 20 x 12 mm in size. Juxtapleural 3 mm noncalcified pulmonary nodule within the anterior aspect of the right upper lobe. No dense areas of consolidation are otherwise seen. No pleural effusion or pneumothorax. No enlarged lymph nodes. Thoracic aorta is of normal caliber. Overall heart size within normal limits. Small amount of fluid in the superior pericardial recess. No acute bony lesions. Please refer to the patient's separately dictated CT of the abdomen and pelvis for information regarding findings below the diaphragm. IMPRESSION: 1. Adjacent spiculated pulmonary nodules within the right upper lobe, highly concerning for malignancy. Correlation with any known primary malignancy is suggested. Metastatic disease versus primary lung malignancies are in the differential. This document has been electronically signed by: Juan Xie MD on 03/13/2025 09:55:21
--- NOTE | ~2025-03-12 | CT_ITS ---
CLINICAL HISTORY: Restaging CT abdomen and pelvis with contrast Comparison: US/SR - US ABDOMEN LIMITED - 10/29/24 10:[address]/SR - CT ABDOMEN PELVIS WO IV CON - 10/18/22 14:32 EST Findings: CT abdomen: Please refer to the patient's separately dictated CT of the chest for information regarding findings within the lung bases. Subtle hypodensities are seen within the right lobe of the liver measuring up to 8 mm in size. Similar 7 mm hypodensity seen within the left lobe of the liver. Main portal vein is patent. No focal splenic lesions. There is subtle peripancreatic inflammatory stranding. No calcified gallstones. Adrenal glands and kidneys are unremarkable for acute findings. There are several cysts within both kidneys measure less than 1 cm in size. Interval development of a low-density ovoid lesion within the central abdomen insinuating between the portal vein and inferior vena cava /left renal vein. This measures 5.9 x 3.6 cm in size. This displaces the associated vascular structures without direct invasion. This extends into the carla hepatis. Immediately adjacent to the pancreas but no definitive pancreatic tissue is seen within this lesion. Splenic vein and superior mesenteric vein are patent. Scattered small bowel air-fluid levels with fluid-filled loops of nondilated small bowel. CT pelvis: Urinary bladder is minimally distended. There is concentric wall thickening of the urinary bladder measuring 10 mm. No bladder calculi. Scattered diverticuli throughout the colon. No discrete area of diverticulitis is identified. Appendix is normal. Trace free fluid within the pelvis. No free air. No discrete fluid collection seen to suggest abscess. Skeletal system: Unchanged height loss along the inferior endplate of the L1 vertebral body. No new fractures. Multilevel degenerative disc disease and degenerative facet disease throughout the visualized portions of the thoracolumbar spine. IMPRESSION: 1. Low-density lesion insinuating between the portal vein and inferior vena cava as discussed above. The appearance is nonspecific but can be seen with necrotic lymph node, pancreatic pseudocyst, or other mass lesion. This is at least moderately concerning for malignancy clinical correlation advised with any known primary malignancy. 2. Nonspecific hepatic lesions. Consider follow up biphasic CT of the abdomen or MRI of the abdomen in 3 months. 3. Fluid-filled small bowel without findings of obstruction. 4. Question mild cystitis. This document has been electronically signed by: Juan Xie MD on 03/13/2025 10:01:04
--- OUTSIDE RECORDS SUMMARY | 2025-03-12 10:42 | XMS_ITS ---
Author Organization [facility] Address [address] [place] [address] Care Team Providers Care Suspect Artist Supervisor Name Role Phone Winston Phipps MD Primary Care Provider Unavaila Wander Manzanares [phone] REASON FOR VISIT Colonoscopy Encounters Encounter Location Date Provider Diagnosis [facility] [address] [place] [address] 11/20/2024 Wander Vega Plan Of Treatment No Information Progress Notes * LADONNA HAMDOB: [birth year] (69 yo M)Acc No.[id number]:11/20/2024 Patient:?LADONNA HAM :1955???Age:69 Y???Sex:Male Address:[address] [place] [address] [address], [place], [address] * true * Date:? Generated for Catie veliz/Jayme/eTransmitting on:?03/12/2025 10:42 AM EDT
--- OUTSIDE RECORDS SUMMARY | 2025-03-12 10:42 | XMS_ITS | Patient Health Record ---
Author Organization [facility] Address [address] [place] [address] Care Team Providers Care Health Data Administrator Name Role Phone Moise WALLACE, Winston Primary Care Provider Wander Fried Unavailable [phone] Allergies No Known Allergies Reason For Referral [...] Status Risk Notes Problem Colon cancer screening (985631302) Colon cancer screening (Z12.11) Active confirmed Problem Pre-procedure evaluation check (262688362) Encounter for other preprocedural examination (Z01.818) Active confirmed Vital Signs Blood pressure diastolic 00 mm Hg 09/25/2024 Height 6 ft 1 in in 09/25/2024 Blood pressure systolic 00 mm Hg 09/25/2024 Weight 188 lbs 09/25/2024 BMI 24.80 kg/m2 09/25/2024 Encounters Encounter Location Date Provider Diagnosis [facility] [address] [place] [address] 09/25/2024 Wander Vega Colon cancer screeni ng Z12.11 and Encounter for other preprocedural examination Z01.818 [facility] [address] [place] [address] 11/20/2024 Wander Vega Assessments Encounter Date Diagnosis [...] Insured Coverage Start Date Coverage End Date [facility] [address] [address] [place] [address] [id number] JITENDRA LADONNA Self - patient is the insured Medical (General) History Medical History History ICD Code Hypertension Denies [place],DM,CVA,Lung disease,renal dise ase Arthritis Negative screening colonoscopy > 10 [address] Dr[address] Gates Surgical History Surgery Date(Month/Year) Back surgery
--- OUTSIDE RECORDS SUMMARY | 2025-03-12 10:42 | XMS_ITS | Clinical Summary ---
Author Organization [facility] Address [address] [place] [address] Phone Care Team Providers Care Senior Supplier Quality Engineer Name Role Phone Physician, No Pcp Primary [...] topic Insurance [employer] Care Teams Senior Supplier Quality Engineer Relationship Specialty Start Date End Date Physician, No Pcp PCP - General 10/11/24
--- OUTSIDE RECORDS SUMMARY | 2025-03-12 10:42 | XMS_ITS ---
Author Organization [facility] Address [address] [place] [address] Care Team Providers Care Technology Lab Teacher Name Role Phone Moise WALLACE, Winston Primary Care Provider Unavaila Wander Manzanares [phone] REASON FOR VISIT screening Encounters Encounter Location Date Provider Diagnosis [facility] Out[facility] [address] [place], [place] [id number] 01/02/2025 Wander Vega Plan Of Treatment No Information Progress Notes * JITENDRA LADONNA SaraviaDOB: [birth year] (69 yo M)Acc No.[id number]:01/02/2025 COLON WITH MAC Patient:?CHECO HAMFAVIO Saravia Provider:?Wander Vega MD :1955???Age:69 Y???Sex:Male Eric e:01/02/2025 Address:[address] [place] [address] [address], [place], [place] Pcp:Winston Phipps MD Subjective: * Chief Complaints: * ???1. Screening. * Medical History:? Objective: * Vitals:? Assessment: Plan: * Treatment: * * The named appointment provid er may or may not be the originator of this progress note, and it is not deemed complete until electronically signed by the appointment provider. Sign off status: Pending * Provider:?Wander Vega MD Date:? 025 Generated for Magnoliai keren/Jayme/eTransmitting on:?03/12/2025 10:42 AM EDT
--- OUTSIDE RECORDS SUMMARY | 2025-03-12 10:42 | XMS_ITS ---
Author Organization [facility] Address [address] [place] [address] Care Team Providers Care Creative Art Therapist Name Role Phone Winston Phipps MD Primary Care Provider Wander Fried Unavailable [phone] Allergies No Known Allergies REASON FOR VISIT [...] Status Risk Notes Problem Colon cancer screening (252127925) Colon cancer screening (Z12.11) Active confirmed Problem Pre-procedure evaluation check (011910983) Encounter for other preprocedural examination (Z01.818) Active confirmed Vital Signs Blood pressure systolic 00 mm Hg 09/25/20 24 Blood pressure diastolic 00 mm Hg 024 Height 6 ft 1 in in 09/25/2024 Weight 188 lbs 09/25/2024 BMI 24.80 kg/m2 09/25/2024 Encounters Encounter Location Date Provider Diagnosis [facility] [address] [place] [address] 09/25/2024 Wander Vega Colon cancer screeni ng [...] JITENDRACHECO MACKLADONNA JDOB: [birth year] (69 yo M)Acc No.[id number]:09/25/2024 Progress Notes Patient:?JITENDRA, LADONNA Saravia Provider:?Wander Vega MD :1955???Age:69 Y???Sex:Male Eric e:09/25/2024 Address:[address] [place] [address] [address], [place] Pcp:Winston Phipps MD Subjective: * Chief Complaints: [...] Procedure Codes:?3017F COLOR ECTAL CA SCREEN DOC [id number] Pt scrn tbco and id as [id number] BP SCR NOT PRFRM REC REASON NOS * Preventive Medicine:? ??Screenings:?Fall Risk Screening?Fall Risk Assessment:?No falls in the past year walks with cane ,?Screening:?No falls in the past year,?Assessment:?Not performed, no reason specified,?Plan of Care:?Not documented, no reason specified.? * Follow Up:?prn * * Sign off status: Completed true * Provider:?Wander Vega MD Date:? 024 Generated for Catie veliz/Jayme/Yaakovsmitting on:?03/12/2025 10:42 AM EDT History and Physical Notes * [...]
[2025-03-12] MEDS: iohexoL 350 MG/ML 75 ML INFUS..BTL 85 ML IV (11:55)
== END 2025-03-12 09:43 | disposition home or self-care (01) ==
LOC: HO.CT 09:42
PROVIDERS: Internal Medicine Medical Oncology; Visit Provider Nurse Practitioner Family
DX: C34.90 Malignant neoplasm of unspecified part of unspecified bronchus or lung (principal); C78.7 Secondary malignant neoplasm of liver and intrahepatic bile duct
CPT/HCPCS: 36415; 71260; 74177; Q9967

== ENCOUNTER → 2025-03-12 09:45 | Outpatient (BNV) | payer MEDICARE, MEDICAID, SELFPAY | PROVIDERS: Visit Provider Radiology Diagnostic Radiology | DX: K76.89 Other specified diseases of liver (principal); K63.89 Other specified diseases of intestine; R91.8 Other nonspecific abnormal finding of lung field | CPT/HCPCS: 71260; 74177 ==

== ENCOUNTER → 2025-03-21 13:12 | Outpatient (BNVA) | payer MEDICARE, MEDICAID, SELFPAY | PROVIDERS: Visit Provider Dietitian, Registered ==

== ENCOUNTER 2025-04-08 09:07 | Outpatient (AMB) | payer MEDICARE, SELFPAY ==
[2025-04-08 09:09] VITALS: BP 136/62; PULSE 83; O2SAT 98; BMI 26.6
--- NOTE | 2025-04-08 09:09 | MHC.OFFVIS ---
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 He had initial CT scan back in July 2024. Unfortunately because of radiology limitations the patient did not get a final read until 10/12/2024. Demonstrated that he had 2 large masses in the right upper lobe area and also significant lymphadenopathy. In addition to the large mass in the pancreas. Therefore the patient was ordered to have a PET scan. Did call him at that time to let him know. He did undergo the PET scan. It demonstrates significant FDG activity in both the lungs the pancreas and also the liver. Therefore based on the findings I did talk to Radiology back in mid September and the thought was to go after the liver biopsy because of his significant respiratory disease in to minimize risk. Therefore the patient was ordered to have a liver biopsy. Although has not been scheduled as of yet. Therefore I did call Radiology and with the help of the administration was able to get a day for biopsy TuesdayOctober 29 at 13:00. Once we have those results we can. The patient understands that he may have 1 process that is advanced or to potential processes because of the pancreatic lesion and also the lung lesion and is not still clear what is the actual process going on the liver. But most likely it is metastatic and that will help us clear that. If the liver lesions are pancreatic then still would have to consider biopsying the pulmonary lesion or the mediastinal lymphadenopathy to see that is a lung primary as well. Therefore will continue to follow closely and try to expedite his care as part she is possible this time. In the meantime he did have PFTs demonstrating a severe obstruction. Unless the him on Anoro. The patient is interested in quitting smoking. He does have the patch done home which she can start. 11/29/2024 the patient is here for a pulmonary follow-up visit. Since we last spoke he did undergo the endobronchial ultrasound bronchoscopy which was positive again for poorly differentiated adenocarcinoma consistent with the pathology from the liver biopsy. The mg markers are positive for PD-L1 and otherwise negative. Because of the pancreatic mass is going to undergo a MRI of the abdomen tomorrow. Then after that he will follow-up with oncology regarding therapy. From a respiratory status the patient feels okay. He does have a productive cough. He had culture positive Haemophilus influenzae after the bronchoscopy he was treated for that. But he still having significant chest congestion. He still continues to smoke therefore he has a component of chronic bronchitis. Although he is also at risk for postobstructive pneumonias. Will go ahead and start him on azithromycin 3 times a week. He is supposed to also start Wixela. This should also help decrease the inflammation of the airways. in addition to this I do believe he is an excellent candidate for the pulmonary rehabilitation to provide him with increased pulmonary capacity and endurance. The patient is agreeable to doing this and I have placed an order. Will follow-up in 2 months. If any issues arise prior to this he will call for an earlier assessment. 04/08/2025 the patient is here for a pulmonary follow-up visit. Overall he is doing well. He completed already 6 cycles of chemotherapy and immune therapy. No significant adverse effects although he does feel weak and tired. He also required blood transfusion. He had repeat imaging studies 03/13/2025 which I personally reviewed. See attached in image to the note. Significant decrease in the nodular masslike density in the right hemithorax. Seems to be responding well to therapy. He did try the Wixela inhaler but he did not like the powder. Did feel like it was helping. Therefore he stopped it. Will broaden send him Symbicort this time hopefully the HFA works a little better for him. In the meantime he has not been able to quit smoking. Still struggling with that. I did encourage him to do so especially since he is trying to prolong his life in the [employer] a during the opposite. He will follow-up in 4-6 months. If he has any issues prior to this he will call for an earlier assessment. Her to the next visit he will probably already have additional imaging studies to review. [facility] Medical History Lung cancer COPD (chronic obstructive pulmonary disease) Pancreatic mass Lymphadenopathy Lung mass Nicotine dependence, cigarettes, uncomplicated SVT (supraventricular tachycardia) Edema Pressure ulcer Alcohol use disorder Cognitive disorder Rhabdomyolysis Hypertension Surgical History History of colonoscopy History of lumbar laminectomy Family History Father No problems noted. Mother Lung cancer Family/Other Lung cancer Throat cancer Social History Household Members: None Housing: Apartment Are you a primary home care coordinator to a significant other at home: No Do you presently have visiting nurse or other home services: No Unable to assess alcohol history related to: Unable to respond Alcohol intake: current Alcohol intake frequency: 3 or more drinks per day Alcohol type: beer Comment: camera not available Patient Tobacco Use Status: Current everyday Tobacco user Tobacco use type: Cigarette Cigarette Packs Per Day: 0.5 Years Smoked: (onset 16yo, 1-1.5ppd x 53yrs, 60+PYH) e-Cigarette/Vaping Use: Never Used Second Hand Smoke Exposure: Yes service: No 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 identity: Male Cognitive needs: Yes (Cane) Hearing needs: No Vision needs: Yes (Glasses) Review of Systems Const Denies chills, Reports fatigue, Denies headache(s) and Denies weight loss Eyes Denies change in vision, Denies diplopia and Denies eye pain ENT Denies vertigo, Denies dizziness, Denies headache(s) and Denies nasal discharge Card Denies chest pain, Denies rapid heart rate and Denies dyspnea on exertion Resp Reports chest congestion, Reports cough, Denies pain with cough and Denies dyspnea on exertion GI Denies abdominal pain, Denies hematochezia and Denies change in bowel habits Musc Denies myalgias, Denies arthralgias and Denies joint swelling Skin/Breast Denies lesions and Denies unusual bruising Neuro Denies vertigo, Denies dizziness, Denies headache(s) and Denies focal weakness Endo Reports fatigue Physical Exam Vital Signs: Last Vital Signs Pulse 83 04/08/25 09:09 BP 136/62 04/08/25 09:09 Pulse Ox 98 04/08/25 09:09 Oxygen Delivery Method Room Air 04/08/25 09:09 BMI result Body Mass Index 26.6 Const General: comfortable HEENT Head: Yes normocephalic Neck Neck: Yes supple Chest Chest palpation & inspection: normal inspection of the chest Resp Effort & Inspection: normal respiratory effort Auscultation: diminished lung sounds Cardio Heart sounds: S1 normal heart sound present and S2 normal heart sound present GI Palpation (GI): Soft to palpation Skin General skin exam: no rashes or lesions noted Extrem General: No cyanosis Results Reviewed Results Reviewed: Assessment & Plan Assessment & Plan (1) COPD (chronic obstructive pulmonary disease): Code(s): J44.9 - Chronic obstructive pulmonary disease, unspecified Category: Medical Qualifiers: COPD type: chronic bronchitis Chronic bronchitis type: simple Qualified Code(s): J41.0 - Simple chronic bronchitis (2) Hepatic lesion: Code(s): K76.9 - Liver disease, unspecified Category: Medical (3) Lung mass: Code(s): R91.8 - Other nonspecific abnormal finding of lung field Category: Medical (4) Pancreatic mass: Code(s): K86.89 - Other specified diseases of pancreas Category: Medical (5) Nicotine dependence, cigarettes, uncomplicated: Comment: (onset 16yo, 1-1.5ppd x 53yrs, 60+PYH+fam hx lung ca - brother/mom) Code(s): F17.210 - Nicotine dependence, cigarettes, uncomplicated Category: Medical (6) 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: Code(s): C34.90 - Malignant neoplasm of unspecified part of unspecified bronchus or lung; C78.7 - Secondary malignant neoplasm of liver and intrahepatic bile duct Category: Medical (7) Lung cancer: Code(s): C34.90 - Malignant neoplasm of unspecified part of unspecified bronchus or lung Category: Medical Qualifiers: Laterality: right Lung location: overlapping sites Qualified Code(s): C34.81 - Malignant neoplasm of overlapping sites of right bronchus and lung Plan stopped Wixela, not helping stop azithromycin start Symbicort not interested in Pulmonary rehab at this time nicotine patch, smoking cessation. Needs to quit start Ipratropium nasal spray for vasomotor rhinitis F/U 4 months Medications: New ipratropium bromide administer into each nostril 2 sprays intranasal TID PRN 15 mL 6RF allergy symptoms budesonide-formoterol 160-4.5 mcg/actuation (Symbicort) 2 puffs inhalation BID 30 days 10.2 grams 11RF J44.89 - Other specified chronic obstructive pulmonary disease Coding Level of Care Code Est Pt Level 4 (46380) Complex EM visit Add On G2211 Diagnoses Simple chronic bronchitis J41.0 COPD type: chronic bronchitis Chronic bronchitis type: simple Hepatic lesion K76.9 Lung mass R91.8 Pancreatic mass K86.89 Nicotine dependence, cigarettes, uncomplicated F17.210 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
--- OUTSIDE RECORDS SUMMARY | 2025-04-08 09:43 | XMS_ITS | Patient Health Record ---
Author Organization [facility] Address [address] [place] [address] Care Team Providers Care Service Learning Coordinator Name Role Phone Moise WALLACE, Winston Primary Care Provider Wander Fried Unavailable [phone] Allergies No Known Allergies Reason For Referral [...] Status Risk Notes Problem Colon cancer screening (188388513) Colon cancer screening (Z12.11) Active confirmed Problem Pre-procedure evaluation check (325191232) Encounter for other preprocedural examination (Z01.818) Active confirmed Vital Signs Blood pressure diastolic 00 mm Hg 09/25/2024 Height 6 ft 1 in in 09/25/2024 Blood pressure systolic 00 mm Hg 09/25/2024 Weight 188 lbs 09/25/2024 BMI 24.80 kg/m2 09/25/2024 Encounters Encounter Location Date Provider Diagnosis [facility] [address] [place] [address] 09/25/2024 Wander Vega Colon cancer screeni ng Z12.11 and Encounter for other preprocedural examination Z01.818 [facility] [address] [place] [address] 11/20/2024 Wander Vega Assessments Encounter Date Diagnosis [...] Insured Coverage Start Date Coverage End Date [facility] [address] [address] [place] [address] [id number] JITENDRA LADONNA Self - patient is the insured Medical (General) History Medical History History ICD Code Hypertension Denies [place],DM,CVA,Lung disease,renal dise ase Arthritis Negative screening colonoscopy > 10 [address] Gates Surgical History Surgery Date(Month/Year) Back surgery
== END 2025-04-08 09:30 | disposition home or self-care (01) ==
LOC: HO.HPS 09:07
PROVIDERS: PCP Internal Medicine; Visit Provider Hospitalist
DX: J41.0 Simple chronic bronchitis (principal); K76.9 Liver disease, unspecified; R91.8 Other nonspecific abnormal finding of lung field; K86.89 Other specified diseases of pancreas; F17.210 Nicotine dependence, cigarettes, uncomplicated; C34.90 Malignant neoplasm of unspecified part of unspecified bronchus or lung; C78.7 Secondary malignant neoplasm of liver and intrahepatic bile duct; C34.81 Malignant neoplasm of overlapping sites of right bronchus and lung
CPT/HCPCS: 99214; G2211

== ENCOUNTER → 2025-04-08 09:07 | Outpatient (BNVA) | payer MEDICARE, SELFPAY | PROVIDERS: PCP Internal Medicine; Visit Provider Hospitalist | DX: C34.81 Malignant neoplasm of overlapping sites of right bronchus and lung (principal); C78.7 Secondary malignant neoplasm of liver and intrahepatic bile duct; R91.8 Other nonspecific abnormal finding of lung field; J41.0 Simple chronic bronchitis; K76.9 Liver disease, unspecified; K86.89 Other specified diseases of pancreas; F17.210 Nicotine dependence, cigarettes, uncomplicated; Z92.21 Personal history of antineoplastic chemotherapy | CPT/HCPCS: 99212 ==

== ENCOUNTER → 2025-04-10 16:13 | Outpatient (BNVA) | payer MEDICARE, SELFPAY | DX: Z13.89 Encounter for screening for other disorder (principal) ==

== ENCOUNTER 2025-04-24 11:10 | Outpatient (AMB) | payer OTHER, SELFPAY ==
[2025-04-24 11:19] VITALS: BP 138/68; PULSE 94; TEMP 36.2; O2SAT 96; BMI 25.6
--- NOTE | 2025-04-24 11:19 | A.OFFPC_ITS ---
Vital Signs 04/24/25 11:19 Height 6 ft 1 in Weight 194 lb 2 oz BMI 25.6 BP 138/68 Blood Pressure Location Lt brachial Position Sitting Pulse 94 Pulse Source Pulse Oximeter Temp 97.1 F Temp Source Temporal Artery Scan Pulse Oximetry (%) 96 Oxygen Delivery Method Room Air Intake Visit Reasons: LOVELY DR Phipps - see comments Allergies No Known Allergies Allergy (Verified 04/24/25 11:30) Medication List - Last Reconciled 04/24/25 by NELY Rich amlodipine 10 mg PO DAILY budesonide-formoterol 160-4.5 mcg/actuation (Symbicort) 2 puffs inhalation BID 30 days dexamethasone 4 mg PO BID folic acid 1 mg PO DAILY ipratropium bromide 2 sprays intranasal TID PRN ondansetron 8 mg PO Q8H PRN Tobacco use date assessed: 04/24/25 Fall risk assessment: No Falls in past year Last assessed Fall Risk: 04/24/25 Dental Screening Dental Screen Date: 04/24/25 Did you have a dental visit in the last 12 months?: No Did you have a dental problem in the last 6 months where you did not have access to dental care?: No Was dental information given to patient?: Patient declined HPI LOVELY DR Phipps - see comments HPI Details Patient is a 69-year-old male presenting to transfer care from Dr. Phipps who retired couple of months ago. 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 Reports that he has been smoking since he was 16 years old. Reports trying many times to quick, but his attempts have not been successful. Lung cancer: chemotherapy 2 times a month. Reports that at times, he gets tired, he has been having good days and bad days. Reports the metastasis to the stomach in the pancreas. Report sob with exertion. Reports frequent cough, mostly nonproductive, sometimes, he get some phlegm. Denies coughing up any blood. Couple of beers almost every day. Denies headaches. Reports after chemo he will get constipated, then it clears the next day. Reports that he is peeing ok, reports getting up two times a night to urinate. For fluids he is having couple cups of coffee in the morning and probably two bottles of water a day. Reports that the shipping clerk told him to only have two bottles of water/day. He reports that with everything that he is going through, he is not worried about this. For reports chronic right knee pain due to severe arthritis. He had multiple cortisone shots that stopped working. Reports that he was supposed to have an operation but has a put this off due to the cancer [facility] Medical History Lung cancer COPD (chronic obstructive pulmonary disease) Pancreatic mass Lymphadenopathy Lung mass Nicotine dependence, cigarettes, uncomplicated SVT (supraventricular tachycardia) Edema Pressure ulcer Alcohol use disorder Cognitive disorder Rhabdomyolysis Hypertension Surgical History History of colonoscopy History of lumbar laminectomy Family History Father No problems noted. Mother Lung cancer Family/Other Lung cancer Throat cancer Social History Household Members: None Housing: Apartment Are you a primary nurse behavioral health care to a significant other at home: No Do you presently have visiting nurse or other home services: No Unable to assess alcohol history related to: Unable to respond Alcohol intake: current Alcohol intake frequency: 3 or more drinks per day Alcohol type: beer Comment: camera not available Patient Tobacco Use Status: Current everyday Tobacco user Tobacco use type: Cigarette Cigarette Packs Per Day: 0.5 Years Smoked: (onset 16yo, 1-1.5ppd x 53yrs, 60+PYH) e-Cigarette/Vaping Use: Never Used Second Hand Smoke Exposure: Yes service: No 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 1. Little interest or pleasure in doing things: several days 2. Feeling down, depressed, or hopeless: not at all 3. Trouble falling or staying asleep, or sleeping too much: not at all 4. Feeling tired or having little energy: several days 5. Poor appetite or overeating: several days 6. Feeling bad about yourself - or that you are a failure or have let yourself or your family down: not at all 7. Trouble concentrating on things, such as reading the newspaper or watching television: not at all 8. Moving or speaking so slowly that other people could have noticed. Or the opposite - being so fidgety or restless that you have been moving around a lot more than usual: not at all 9. Thoughts that you would be better off or of hurting yourself in some way: not at all Total score: 3 Depression Screening Interpretation: Negative Depression Screening Done: Yes Source: Developed by Drs. Wander Fox, Mallorie Reed, Dwight Vernon and colleagues, with an educational gabbi from [employer]. Thrive Questionnaire Date Thrive assessed: 01/01/25 I am a: Patient What is your living situation today?: I have a steady place to live Within the past 12 months, did the food you bought not last and you didn't have the money to get more?: Never true Within the past 12 months, did you worry whether your food would run out before you got money to buy more?: Never true Do you have trouble paying for medicines?: Yes Do you have trouble getting transportation to medical appointments?: No Do you have trouble paying your heating and electricity bill?: Yes Do you have trouble taking care of your child, family member or friend?: No Do you have trouble with day-to-day activities such as bathing, preparing meals, shopping, managing finances, etc.?: No Are you currently unemployed and looking for a job?: Yes Are you interested in more education?: No Please select the resources that you would like help with: None Currently or been in a relationship where the following occur: No concerns reported THRIVE Score: 1 AUDIT C Alcohol Use Questionnaire (AUDIT-C) 1. How often do you have a drink containing alcohol?: Monthly or less 2. How many drinks containing alcohol do you have on a typical day when you are drinking?: 1 or 2 3. How often do you have six or more drinks on one occasion?: Never Total Score: 1 TATIANA-7 AMB Questionnaire TATIANA-7 Date TATIANA - 7 assessed: 01/01/25 Feeling nervous, anxious, or on edge: 0 = Not at all Not being able to stop or control worryin = Not at all Worrying too much about different things: 0 = Not at all Trouble relaxin = Not at all Being so restless that it is hard to sit still: 0 = Not at all Becoming easily annoyed or irritable: 0 = Not at all Feeling afraid as if something awful might happen: 0 = Not at all Total TATIANA-7 score (0-4 normal; 5-9 mild; 10-14 moderate; 15-21 severe): 0 Source: Developed by Drs. Wander Fox, Mallorie Reed, Dwight Vernon and colleagues, with an educational gabbi from [employer]. Review of Systems Const Denies headache(s) Eyes Denies loss of vision ENT Denies vertigo, Denies dizziness, Denies headache(s) and Denies sore throat Card Denies chest pain, Reports leg edema (BLE), Denies lightheadedness and Denies dyspnea on exertion Resp Reports chest congestion, Reports cough (Chronic), Denies hemoptysis, Denies pain with cough, Denies dyspnea on exertion and Denies wheezing GI Denies abdominal pain, Denies melena, Denies constipation, Denies diarrhea and Denies vomiting Denies dysuria, Denies urinary frequency and Denies urinary urgency Musc Reports arthralgias (Right knee), Denies joint swelling, Denies numbness and Denies tingling Skin/Breast Reports skin swelling (BLE) Neuro Denies Abnormal speech present, Denies behavioral changes, Denies vertigo, Denies dizziness, Denies headache(s), Denies loss of vision, Denies memory loss, Denies numbness and Denies tingling Psych Denies anxiety, Denies behavioral changes, Denies depression, Denies memory loss and Denies panic attacks Barry/Lymph Denies easy bleeding and Denies easy bruising Aller/Immun Denies wheezing Physical exam (Primary Care) Vital Signs: Last Vital Signs Temp 97.1 F 04/24/25 11:19 Pulse 94 04/24/25 11:19 BP 138/68 04/24/25 11:19 Pulse Ox 96 04/24/25 11:19 Oxygen Delivery Method Room Air 04/24/25 11:19 BMI result Body Mass Index 25.6 Tobacco/Smoking Status: Tobacco use Status Tobacco use date assessed 04/24/25 04/24/25 11:24 Patient Tobacco Use Status Current everyday Tobacco 04/24/25 11:24 Tobacco use type Cigarette 04/24/25 11:24 e-Cigarette/Vaping Use Never Used 04/24/25 11:24 PHQ-9: PHQ-9 Score PHQ-9: Total score 3 04/24/25 11:43 Depression Screening Interpretation: Negative Thrive Assessment: Date of Thrive Assessment Date Thrive assessed 01/01/25 04/24/25 11:24 Currently or been in a relationship where the following occur: No concerns reported Const General: healthy appearing, no acute distress, alert and awake Nutritional Appearance: well nourished Orientation/consciousness: oriented to person, oriented to place and oriented to time HENMT Ears: TM's normal bilaterally General nose exam: Normal nasal mucous membranes and turbinates present Eyes Conjunctivae: conjunctivae normal Sclerae: sclerae normal Pupils: Equal, round and reactive pupils present Neck Neck: Yes no lymphadenopathy and Yes no JVD Thyroid: Thyroid normal Carotids: no bruits Resp Effort & Inspection: normal respiratory effort and not tachypneic Auscultation: no crackles, no rales, no rhonchi and no wheezes Cardio Rate: regular rate Rhythm: regular rhythm Heart sounds: no murmurs and normal S1 and S2 GI Palpation (GI): Soft to palpation, nontender, no hepatomegaly and no splenomegaly Auscultation: normal bowel sounds General: Yes no CVA tenderness Back/Spine/Pelvis Back: no CVA tenderness Skin General skin exam: dry skin and other (BLE bright pink) Neuro General: oriented to person, oriented to place and oriented to time Cranial nerves: Yes Equal, round and reactive pupils present Speech: No Abnormal speech present Gait exam (Neuro): Normal gait present Motor exam (neuro): no tremor noted Extrem Right upper extremity: full ROM Left upper extremity: full ROM Right lower extremity: full ROM and lower leg Details: pitting edema Details: 2+ Left lower extremity: full ROM and lower leg Details: pitting edema Details: 2+ Psych Mental Status: mental status grossly normal Speech and movement: Normal speech and movement present Affect: normal affect Attitude: cooperative Thought process: Normal thought process present Results Reviewed Results Reviewed: Laboratory Tests 04/11/25 11:52 WBC 4.8 RBC 2.54 L Hgb 8.3 L Hct 24.4 L MCV 96.1 MCH 32.7 MCHC 34.0 RDW 21.6 H Plt Count 451 H MPV 9.0 L Immature Gran % (Auto) 0.8 H Neut % (Auto) 67.0 Lymph % (Auto) 14.0 L [place] % (Auto) 18.2 H Sodium 133 L Potassium 4.4 Chloride 101 Carbon Dioxide 25 Anion Gap 11 L BUN 13 Creatinine 0.88 Estim Creat Clear Calc 92.0 Estimated GFR > 60 Random Glucose 113 Calcium 9.0 Total Bilirubin 0.2 AST 24 ALT 9 Alkaline Phosphatase 81 Total Protein 6.6 Albumin 3.7 TSH 1.43 Coding Level of Care Code Est Pt Level 4 (68711) Diagnoses Alcoholism F10.20 Primary hypertension I10 Hypertension type: primary hypertension Hyponatremia E87.1 Hepatic lesion K76.9 Pancreatic mass K86.89 Benign prostatic hyperplasia without lower urinary tract symptoms N40.0 Lower urinary tract symptom presence: symptoms absent Anemia, unspecified type D64.9 Anemia type: unspecified type 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 Encouraged cessation, reports that he has cut back a lot already (2) Hypertension: Code(s): I10 - Essential (primary) hypertension Category: Medical Qualifiers: Hypertension type: primary hypertension Qualified Code(s): I10 - Essential (primary) hypertension Plan: Blood pressure 138/68 Encouraged low-salt diet and decreasing alcohol and caffeine intake Continue amlodipine 10 mg daily (3) Hyponatremia: Code(s): E87.1 - Hypo-osmolality and hyponatremia Category: Medical Plan: Appears to be stable. Encouraged lowering alcohol intake. Reinforced fluid restrictions. Per patient, he is already not drinking much. The patient reports to only drinking like 2 bottles of water, but he is not factoring the his coffee and beer intakes. Reports that he is not worried about this, given everything that is going on. (4) Hepatic lesion: Code(s): K76.9 - Liver disease, unspecified Category: Medical Plan: Ongoing chemotherapy. Follow up with Oncology as scheduled (5) Pancreatic mass: Code(s): K86.89 - Other specified diseases of pancreas Category: Medical Plan: Ongoing chemotherapy, follow up with Oncology as scheduled (6) BPH (benign prostatic hyperplasia): Code(s): N40.0 - Benign prostatic hyperplasia without lower urinary tract symptoms Category: Medical Qualifiers: Lower urinary tract symptom presence: symptoms absent Qualified Code(s): N40.0 - Benign prostatic hyperplasia without lower urinary tract symptoms Plan: Reports getting up 2 times a night. However, he is drinking close to bedtime. This is not bothersome, per patient. (7) Anemia: Code(s): D64.9 - Anemia, unspecified Category: Medical Qualifiers: Anemia type: unspecified type Qualified Code(s): D64.9 - Anemia, unspecified Plan: multiple causes, deficiency of vitamins along with chronic disease continue folic acid follow up with hematology as scheduled (8) 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: Code(s): C34.90 - Malignant neoplasm of unspecified part of unspecified bronchus or lung; C78.7 - Secondary malignant neoplasm of liver and intrahepatic bile duct Category: Medical Plan: Ongoing chemotherapy Follow up with Oncology as scheduled (9) Primary osteoarthritis of right knee: Code(s): M17.11 - Unilateral primary osteoarthritis, right knee Category: Medical Plan: Chronic right knee pain Multiple cortisone shots reports that the shots stop working, the last one he received, he did not have any relief recommended for surgery, but had to put this on hold due to his cancer diagnosis Uses a cane to ambulate, reports that he is doing ok for now (10) COPD (chronic obstructive pulmonary disease): Code(s): J44.9 - Chronic obstructive pulmonary disease, unspecified Category: Medical Qualifiers: COPD type: chronic bronchitis Chronic bronchitis type: simple Qualified Code(s): J41.0 - Simple chronic bronchitis Plan: continue symbicort 2 puffs inh bid encouraged smoking cessation (11) Nicotine dependence, cigarettes, uncomplicated: Comment: (onset 16yo, 1-1.5ppd x 53yrs, 60+PYH+fam hx lung ca - brother/mom) Code(s): F17.210 - Nicotine dependence, cigarettes, uncomplicated Category: Medical Plan: Encouraged cessation Orders: Orders Comprehensive [place]. Panel Fast 3 Months C34.81 - Malignant neoplasm of overlapping sites of right bronchus and lung, C34.90 - Malignant neoplasm of unspecified part of unspecified bronchus or lung, C78.7 - Secondary malignant neoplasm of liver and intrahepatic bile duct, D64.9 - Anemia, unspecified, E87.1 - Hypo-osmolality and hyponatremia, E87.5 - Hyperkalemia, F10.20 - Alcohol dependence, uncomplicated, I10 - Essential (primary) hypertension, J41.0 - Simple chronic bronchitis, K76.9 - Liver disease, unspecified, K86.89 - Other specified diseases of pancreas, N40.0 - Benign prostatic hyperplasia without lower urinary tract symptoms Lipid Panel 3 Months C34.81 - Malignant neoplasm of overlapping sites of right bronchus and lung, C34.90 - Malignant neoplasm of unspecified part of unspecified bronchus or lung, C78.7 - Secondary malignant neoplasm of liver and intrahepatic bile duct, D64.9 - Anemia, unspecified, E87.1 - Hypo-osmolality and hyponatremia, E87.5 - Hyperkalemia, F10.20 - Alcohol dependence, uncomplicated, I10 - Essential (primary) hypertension, J41.0 - Simple chronic bronchitis, K76.9 - Liver disease, unspecified, K86.89 - Other specified diseases of pancreas, N40.0 - Benign prostatic hyperplasia without lower urinary tract symptoms TSH reflex Free T4 3 Months C34.81 - Malignant neoplasm of overlapping sites of right bronchus and lung, C34.90 - Malignant neoplasm of unspecified part of unspecified bronchus or lung, C78.7 - Secondary malignant neoplasm of liver and intrahepatic bile duct, D64.9 - Anemia, unspecified, E87.1 - Hypo-osmolality and hyponatremia, E87.5 - Hyperkalemia, F10.20 - Alcohol dependence, uncomplicated, I10 - Essential (primary) hypertension, J41.0 - Simple chronic bronchitis, K76.9 - Liver disease, unspecified, K86.89 - Other specified diseases of pancreas, N40.0 - Benign prostatic hyperplasia without lower urinary tract symptoms UA CC w/rflx Micro + Cult 3 Months C34.81 - Malignant neoplasm of overlapping sites of right bronchus and lung, C34.90 - Malignant neoplasm of unspecified part of unspecified bronchus or lung, C78.7 - Secondary malignant neoplasm of liver and intrahepatic bile duct, D64.9 - Anemia, unspecified, E87.1 - Hypo- osmolality and hyponatremia, E87.5 - Hyperkalemia, F10.20 - Alcohol dependence, uncomplicated, I10 - Essential (primary) hypertension, J41.0 - Simple chronic bronchitis, K76.9 - Liver disease, unspecified, K86.89 - Other specified diseases of pancreas, N40.0 - Benign prostatic hyperplasia without lower urinary tract symptoms Vitamin D 25-OH Total 3 Months C34.81 - Malignant neoplasm of overlapping sites of right bronchus and lung, C34.90 - Malignant neoplasm of unspecified part of unspecified bronchus or lung, C78.7 - Secondary malignant neoplasm of liver and intrahepatic bile duct, D64.9 - Anemia, unspecified, E87.1 - Hypo-osmolality and hyponatremia, E87.5 - Hyperkalemia, F10.20 - Alcohol dependence, uncomplicated, I10 - Essential (primary) hypertension, J41.0 - Simple chronic bronchitis, K76.9 - Liver disease, unspecified, K86.89 - Other specified diseases of pancreas, N40.0 - Benign prostatic hyperplasia without lower urinary tract symptoms Hemoglobin A1c 3 Months C34.81 - Malignant neoplasm of overlapping sites of right bronchus and lung, C34.90 - Malignant neoplasm of unspecified part of unspecified bronchus or lung, C78.7 - Secondary malignant neoplasm of liver and intrahepatic bile duct, D64.9 - Anemia, unspecified, E87.1 - Hypo-osmolality and hyponatremia, E87.5 - Hyperkalemia, F10.20 - Alcohol dependence, uncomplicated, I10 - Essential (primary) hypertension, J41.0 - Simple chronic bronchitis, K76.9 - Liver disease, unspecified, K86.89 - Other specified diseases of pancreas, N40.0 - Benign prostatic hyperplasia without lower urinary tract symptoms B Type Natriuretic Peptide 3 Months C34.81 - Malignant neoplasm of overlapping sites of right bronchus and lung, C34.90 - Malignant neoplasm of unspecified part of unspecified bronchus or lung, C78.7 - Secondary malignant neoplasm of liver and intrahepatic bile duct, D64.9 - Anemia, unspecified, E87.1 - Hypo- osmolality and hyponatremia, E87.5 - Hyperkalemia, F10.20 - Alcohol dependence, uncomplicated, I10 - Essential (primary) hypertension, J41.0 - Simple chronic bronchitis, K76.9 - Liver disease, unspecified, K86.89 - Other specified diseases of pancreas, N40.0 - Benign prostatic hyperplasia without lower urinary tract symptoms PSA,Total (Free>4and<10) 3 Months C34.81 - Malignant neoplasm of overlapping sites of right bronchus and lung, C34.90 - Malignant neoplasm of unspecified part of unspecified bronchus or lung, C78.7 - Secondary malignant neoplasm of liver and intrahepatic bile duct, D64.9 - Anemia, unspecified, E87.1 - Hypo- osmolality and hyponatremia, E87.5 - Hyperkalemia, F10.20 - Alcohol dependence, uncomplicated, I10 - Essential (primary) hypertension, J41.0 - Simple chronic bronchitis, K76.9 - Liver disease, unspecified, K86.89 - Other specified diseases of pancreas, N40.0 - Benign prostatic hyperplasia without lower urinary tract symptoms
--- OUTSIDE RECORDS SUMMARY | 2025-04-24 11:57 | XMS_ITS | Clinical Summary ---
Author Organization [facility] Address [address] [place] [address] Phone Care Team Providers Care Property Damage Claims Adjustor Name Role Phone Physician, No Pcp Primary [...] topic Insurance [employer] Care Teams Property Damage Claims Adjustor Relationship Specialty Start Date End Date Physician, No Pcp PCP - General 10/11/24
--- OUTSIDE RECORDS SUMMARY | 2025-04-24 11:57 | XMS_ITS | Patient Health Record ---
Author Organization [facility] Address [address] [place] [address] Care Team Providers Care Immersion Metalcleaner Name Role Phone Moise WALLACE, Winston Primary Care Provider Wander Fried Unavailable [phone] Allergies No Known Allergies Reason For Referral [...] Status Risk Notes Problem Colon cancer screening ([id number]) Colon cancer screening (Z12.11) Active confirmed Problem Pre-procedure evaluation check (887016079) Encounter for other preprocedural examination (Z01.818) Active confirmed Vital Signs Blood pressure diastolic 00 mm Hg 09/25/2024 Height 6 ft 1 in in 09/25/2024 Blood pressure systolic 00 mm Hg 09/25/2024 Weight 188 lbs 09/25/2024 BMI 24.80 kg/m2 09/25/2024 Encounters Encounter Location Date Provider Diagnosis [facility] [address] [place] [address] 09/25/2024 Wander Vega Colon cancer screeni ng Z12.11 and Encounter for other preprocedural examination Z01.818 [facility] [address] [place] [address] 11/20/2024 Wander Vega Assessments Encounter Date Diagnosis [...] Coverage End Date [facility] [address] [address] [place] [address] [id number] JITENDRA LADONNA Self - patient is the insured Medical (General) History Medical History History ICD Code Hypertension Denies [place],DM,CVA,Lung disease,renal dise ase Arthritis Negative screening colonoscopy > [address] Gates Surgical History Surgery Date(Month/Year) Back surgery
== END 2025-04-24 11:55 | disposition home or self-care (01) ==
LOC: HO.HMCH 11:11
DX: J41.0 Simple chronic bronchitis (principal); F10.20 Alcohol dependence, uncomplicated; C78.7 Secondary malignant neoplasm of liver and intrahepatic bile duct; C34.90 Malignant neoplasm of unspecified part of unspecified bronchus or lung; I10 Essential (primary) hypertension; E87.1 Hypo-osmolality and hyponatremia; K76.9 Liver disease, unspecified; K86.89 Other specified diseases of pancreas; N40.0 Benign prostatic hyperplasia without lower urinary tract symptoms; D64.9 Anemia, unspecified; M17.11 Unilateral primary osteoarthritis, right knee; F17.210 Nicotine dependence, cigarettes, uncomplicated

== ENCOUNTER 2025-05-10 10:29 | Outpatient (AMB) | payer MEDICARE, SELFPAY ==
[2025-05-10 10:46] VITALS: BP 124/64; PULSE 97; O2SAT 94; BMI 25.1
--- NOTE | 2025-05-10 10:46 | HO.NEPHOV_ITS ---
Vital Signs 05/10/25 10:46 Height 6 ft 1 in Weight 190 lb BMI 25.1 BP 124/64 Blood Pressure Location Lt brachial Position Sitting Pulse 97 Pulse Source Pulse Oximeter Pulse Oximetry (%) 94 Oxygen Delivery Method Room Air Intake Visit Reasons: 2 mnts f/u-LVM Stagecraft Professor Required: No Accompanied by: Self / Same As Patient Allergies No Known Allergies Allergy (Verified 05/10/25 10:48) HPI Comments Details: Siva was seen in follow up for hyponatremia. He recently carries a diagnosis of poorly-differentiated lung cancer with liver metastases with a new ill-defined mass in the region of the head of the pancreas. He has H/O hypertension and excess alcohol intake as well as smoking. He continues to have excess beer drinking but no nausea, vomiting or diarrhea. He is depressed about the diagnosis. He has a very strong family H/O malignancy. He is not taking thiazide diuretics. He has H/O COPD and hyponatremia in the past. He is not taking any anti depressant medication. He has no H/O heart failure. He has no mental status changes or any H/O seizures. Recently his serum sodium is stable [facility] Medical History Lung cancer COPD (chronic obstructive pulmonary disease) Pancreatic mass Lymphadenopathy Lung mass Nicotine dependence, cigarettes, uncomplicated SVT (supraventricular tachycardia) Edema Pressure ulcer Alcohol use disorder Cognitive disorder Rhabdomyolysis Hypertension Surgical History History of colonoscopy History of lumbar laminectomy Family History Father No problems noted. Mother Lung cancer Family/Other Lung cancer Throat cancer Social History Household Members: None Housing: Apartment Are you a primary summer child caregiver to a significant other at home: No Do you presently have visiting nurse or other home services: No Unable to assess alcohol history related to: Unable to respond Alcohol intake: current Alcohol intake frequency: 3 or more drinks per day Alcohol type: beer Comment: camera not available Patient Tobacco Use Status: Current everyday Tobacco user Tobacco use type: Cigarette Cigarette Packs Per Day: 0.5 Years Smoked: (onset 16yo, 1-1.5ppd x 53yrs, 60+PYH) e-Cigarette/Vaping Use: Never Used Second Hand Smoke Exposure: Yes service: No 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 identity: Male Cognitive needs: Yes (Cane) Hearing needs: No Vision needs: Yes (Glasses) Review of Systems Const All systems reviewed & are unremarkable except as noted in HPI and below Physical Exam Vital Signs: Last Vital Signs Pulse 97 05/10/25 10:46 BP 124/64 05/10/25 10:46 Pulse Ox 94 05/10/25 10:46 Oxygen Delivery Method Room Air 05/10/25 10:46 BMI result Body Mass Index 25.1 Const General: comfortable and no acute distress Orientation/consciousness: patient oriented x3 HEENT Head: Yes normocephalic Mouth: Normal oral and palatal mucosa present Eyes EOM: EOMs intact bilaterally Neck Neck: Yes supple Resp Auscultation: clear to auscultation bilaterally Cardio Jugular venous distension: no JVD Rate: regular rate GI Palpation (GI): Soft to palpation Auscultation: normal bowel sounds General: Yes no CVA tenderness Back/Spine/Pelvis Back: no CVA tenderness Skin General skin exam: no rashes or lesions noted Neuro General: patient oriented x3 and moves all extremities Extrem General: Yes no pedal edema Results Reviewed Nephrology Results: Sodium, (135-145) 131 mmol/L L 05/02/25 Potassium, (3.3-5.1) 4.2 mmol/L 05/02/25 Chloride, (96-108) 97 mmol/L 05/02/25 Carbon Dioxide, (22-29) 26 mmol/L 05/02/25 BUN, (9-16) 14 mg/dL 05/02/25 Creatinine, (0.5-1.4) 1.18 mg/dL 05/02/25 Calcium, (8.4-10.2) 8.6 mg/dL 05/02/25 Assessment & Plan Assessment & Plan (1) Hypertension: Code(s): I10 - Essential (primary) hypertension Category: Medical Qualifiers: Hypertension type: primary hypertension Qualified Code(s): I10 - Essential (primary) hypertension (2) Hyponatremia: Code(s): E87.1 - Hypo-osmolality and hyponatremia Category: Medical (3) CKD stage 3a, GFR 45-59 ml/min: Code(s): N18.31 - Chronic kidney disease, stage 3a Category: Medical Plan He has hyponatremia due to excess ADH. He has no H/O HF but has h/o pulmonary disease in the past until his recent diagnosis of metastatic malignancy. Adrenal insufficiency was considered but he has no other classical features of it. His cortisol level was OK. I reviewed his recent imaging studies which did not show any adrenal lesions. He is currently on fluid restriction and his serum Na is stable. There is no indication for PO Urea, NaCl or Demeclocycline. His BP is well controlled on current medications. He gets regular blood work for chemotherapy and we shall keep a close watch on his blood chemistry and renal function. Follow up given Coding Level of Care Code Est Pt Level 4 (97227) Diagnoses Primary hypertension I10 Hypertension type: primary hypertension Hyponatremia E87.1 CKD stage 3a, GFR 45-59 ml/min N18.31
--- OUTSIDE RECORDS SUMMARY | 2025-05-10 10:54 | XMS_ITS | Clinical Summary ---
Author Organization [facility] Address [address] [place] [address] Phone Care Team Providers Care Waiter/Waitress Name Role Phone Physician, No Pcp Primary [...] 2023-2 5 season) 2024 Influenza Vaccine (#1) 2025 RSV Immunization Adult Patie nts (1 [...] topic Insurance [employer] MED[employer]ARE Care Teams Waiter/Waitress Relationship Specialty Start Date End Date Physician, No Pcp PCP - General 10/11/24
--- OUTSIDE RECORDS SUMMARY | 2025-05-10 10:54 | XMS_ITS | Patient Health Record ---
Author Organization [facility] Address [address] [place] [address] Care Team Providers Care Jewelry Manager Name Role Phone Moise WALLACE, Winston Primary Care Provider Wander Fried Unavailable [phone] Allergies No Known Allergies Reason For Referral [...] Status Risk Notes Problem Colon cancer screening (458871023) Colon cancer screening (Z12.11) Active confirmed Problem Pre-procedure evaluation check (891772885) Encounter for other preprocedural examination (Z01.818) Active confirmed Vital Signs Blood pressure diastolic 00 mm Hg 09/25/2024 Height 6 ft 1 in in 09/25/2024 Blood pressure systolic 00 mm Hg 09/25/2024 Weight 188 lbs 09/25/2024 BMI 24.80 kg/m2 09/25/2024 Encounters Encounter Location Date Provider Diagnosis [facility] [address] [place] [address] 09/25/2024 Wander Vega Colon cancer screeni ng Z12.11 and Encounter for other preprocedural examination Z01.818 [facility] [address] [place] [address] 11/20/2024 Wander Vega Assessments Encounter Date Diagnosis [...] again for allowing me to participate in Svia's care. I shall continue to keep you [...] Insured Coverage Start Date Coverage End Date [facility] [address] [address] [place] [address] [id number] JITENDRA LADONNA Self - patient is the insured Medical (General) History Medical History History ICD Code Hypertension Denies HI,DM,CVA,Lung disease,renal dise ase Arthritis Negative screening colonoscopy > [address] Gates Surgical History Surgery Date(Month/Year) Back surgery
== END 2025-05-10 12:04 | disposition home or self-care (01) ==
LOC: HO.HKA 10:30
PROVIDERS: PCP Internal Medicine; Visit Provider Internal Medicine Nephrology
DX: I10 Essential (primary) hypertension (principal); E87.1 Hypo-osmolality and hyponatremia; N18.31 Chronic kidney disease, stage 3a
CPT/HCPCS: 99214

== ENCOUNTER → 2025-05-10 10:29 | Outpatient (BNVA) | payer MEDICARE, SELFPAY | PROVIDERS: PCP Internal Medicine; Visit Provider Internal Medicine Nephrology | DX: I12.9 Hypertensive chronic kidney disease with stage 1 through stage 4 chronic kidney disease, or unspecified chronic kidney disease (principal); N18.31 Chronic kidney disease, stage 3a; E87.1 Hypo-osmolality and hyponatremia | CPT/HCPCS: 99212 ==

== ENCOUNTER 2025-06-19 08:51 | Outpatient (AMB) | payer MEDICARE, SELFPAY ==
--- OUTSIDE RECORDS SUMMARY | 2025-01-02 07:20 | XMS_ITS ---
Author Organization [facility] Address [address] [place] [address] Care Team Providers Care Chemical Sales Representative Name Role Phone Moise WALLACE, Winston Primary Care Provider Unavaila Wander Manzanares [phone] REASON FOR VISIT screening Encounters Encounter Location Date Provider Diagnosis [facility] [place] [address] [place], [place] [phone] 01/02/2025 Wander Vega Plan Of Treatment No Information Progress Notes * LADONNA HAM ManjitDOB: [birth year] (69 yo M)Acc No.[id number]:01/02/2025 COLON WITH MAC Patient: LADONNA BLACKBURN Provider: Candy Vega MD :1955 A ge:69 Y S ex:Male Date:01/02/2025 Address:[address] [place] [address] [address], [facility] Pcp:Winston Phipps MD Subjective: * Chief Complaints: [...] MD Date: 0 01/02/2025 Generated for Catie veliz/Jayme/Jareditting on: 0 06/19/2025 09:18 AM EDT
--- NOTE | 2025-06-19 08:52 | A.OFFVIS_ITS ---
Vital Signs 06/19/25 08:59 Height 6 ft 1 in Weight 180 lb BMI 23.7 BP 128/66 Blood Pressure Location Rt brachial Position Sitting Pulse 106 H Pulse Source Pulse Oximeter Pulse Oximetry (%) 99 Oxygen Delivery Method Room Air Intake Visit Reasons: anemia Intake Note: New pt for initial eval of anemia. Hx of cancer. CC: C.O. a bitter or metallic taste in his mouth, onset around the time he started chemo therapy. Pt denies any additional sx or concerns at this time. Pt confirms last colo 2009 per medical hx. Accreditation Manager Required: No Accompanied by: Self / Same As Patient Allergies No Known Allergies Allergy (Verified 06/19/25 08:55) HPI HPI anemia: Details: 69-year-old male with past medical history of CKD, anemia, pancreatic cancer, lung CA, COPD, pancreatic mass, BPH, hepatic lesion, hypertension, osteoarthritis of the right knee is here today for initial consultation. Patient reports his last colonoscopy was 10 years ago or so. Patient is referred to us by admissions clinician. Patient started chemotherapy and reports that since then he has been having metallic taste in his mouth. Denies having any epigastric pain or discomfort. Currently is not taking any PPI. Occasional epigastric pain depending on what he eats and mild reflux. Patient denies any constipation, diarrhea. Denies any issues with anesthesia in the past. No history of sleep apnea. Patient is not taking any anticoagulation medication. Patient denies any melena, hematochezia. Patient reports weight loss. Denies any family history of CRC. [facility] Medical History Lung cancer COPD (chronic obstructive pulmonary disease) Pancreatic mass Lymphadenopathy Lung mass Nicotine dependence, cigarettes, uncomplicated SVT (supraventricular tachycardia) Edema Pressure ulcer Alcohol use disorder Cognitive disorder Rhabdomyolysis Hypertension Surgical History History of colonoscopy History of lumbar laminectomy Family History Father No problems noted. Mother Lung cancer Family/Other Lung cancer Throat cancer Social History Household Members: None Housing: Apartment Are you a primary personal caregiver to a significant other at home: No Do you presently have visiting nurse or other home services: No Unable to assess alcohol history related to: Unable to respond Alcohol intake: current Alcohol intake frequency: 3 or more drinks per day Alcohol type: beer Comment: camera not available Patient Tobacco Use Status: Current everyday Tobacco user Tobacco use type: Cigarette Cigarette Packs Per Day: 0.5 Years Smoked: (onset 16yo, 1-1.5ppd x 53yrs, 60+PYH) e-Cigarette/Vaping Use: Never Used Second Hand Smoke Exposure: Yes service: No 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 Patient reports metallic taste in his mouth since start chemo. Patient denies any epigastric pain or reflux. Weight loss of 15 lb in the past couple months. Patient denies any melena, hematochezia. What to expect before during and after procedure discussed with patient. Stressed the importance of good bowel prep and clear liquid diet day before procedure. Patient will call our office if he will have any GI concerning symptoms. Patient was encouraged to avoid drinking alcohol. Patient is not on any anticoagulation medication. No history of sleep apnea. Denies any family history of CRC. I will see patient after the procedure, sooner on as needed basis. He is agreeable to this plan and verbalizes understanding of instructions. He was given the opportunity to ask questions and all questions answered. Thank you for allowing me to participate in his care Medications: New polyethylene glycol 3350 (Miralax) As directed by gastroenterology department at [facility] 238 grams PO ONCE 238 grams 0RF Z12.11 - Encounter for screening for malignant neoplasm of colon bisacodyl (Dulcolax (bisacodyl)) take 4 tabs at noon the day before your colonoscopy 20 mg (4 x 5 mg) PO ONCE 4 tabs 0RF constipation 1 day Z12.11 - Encounter for screening for malignant neoplasm of colon Coding Level of Care Code New Pt Level 4 (46861) Diagnoses Dysgeusia R43.2 Screen for colon cancer Z12.11 Time Spent (min) 45 Comment 35 minutes spent with patient and additional 10 minutes spent reviewing his records
[2025-06-19 08:59] VITALS: BP 128/66; PULSE 106; O2SAT 99; BMI 23.7
--- OUTSIDE RECORDS SUMMARY | 2025-06-19 09:18 | XMS_ITS | Patient Health Record ---
Author Organization [facility] Address [address] [place] [address] Care Team Providers Care Vp Global Name Role Phone Moise WALLACE, Winston Primary Care Provider Wander Fried Unavailable [phone] Allergies No Known Allergies Reason For Referral [...] Status Risk Notes Problem Colon cancer screening (871154615) Colon cancer screening (Z12.11) Active confirmed Problem Pre-procedure evaluation check (079806147) Encounter for other preprocedural examination (Z01.818) Active confirmed Vital Signs Blood pressure diastolic 00 mm Hg 09/25/2024 Height 6 ft 1 in in 09/25/2024 Blood pressure systolic 00 mm Hg 09/25/2024 Weight 188 lbs 09/25/2024 BMI 24.80 kg/m2 09/25/2024 Encounters Encounter Location Date Provider Diagnosis [facility] [address] [place] [address] 09/25/2024 Wander Vega Colon cancer screeni ng Z12.11 and Encounter for other preprocedural examination Z01.818 [facility] [address] [place] [address] 11/20/2024 Wander Vega Assessments Encounter Date Diagnosis [...] Insured Coverage Start Date Coverage End Date [facility] [address] [address] [place] [address] [id number] JITENDRA LADONNA Self - patient is the insured Medical (General) History Medical History History ICD Code Hypertension Denies [place],DM,CVA,Lung disease,renal dise ase Arthritis Negative screening colonoscopy > [address] Gates Surgical History Surgery Date(Month/Year) Back surgery
--- OUTSIDE RECORDS SUMMARY | 2025-06-19 09:18 | XMS_ITS | Clinical Summary ---
Author Organization [facility] Address [address] [place] [address] Phone Care Team Providers Care Paper Tester Name Role Phone Physician, No Pcp Primary [...] Panel) 11/18/2023 Colorectal Cancer Screening: Colonoscopy 11/18/2023 Falls Risk Assessment 11/18/2023 Hepatitis C Screening 11/18/2023 Medicare Annual Wellness Visit 11/18/2023 Social Influencers of Health Screening 11/18/2023 COVID-19 Vaccine (1 - 2023-2 5 season) 2024 Depression Screening 10/24/2024 Influenza Vaccine (#1) 2025 RSV Immunization Adult [...] topic Insurance [employer] MED[employer]ARE Care Teams Paper Tester Relationship Specialty Start Date End Date Physician, No Pcp PCP - General 10/11/24
== END 2025-06-19 09:25 | disposition home or self-care (01) ==
LOC: HO.HGI 08:51
PROVIDERS: Visit Provider Nurse Practitioner Family
DX: R43.2 Parageusia (principal)
CPT/HCPCS: 99204

== ENCOUNTER → 2025-06-19 08:51 | Outpatient (BNVA) | payer MEDICARE, SELFPAY | PROVIDERS: Visit Provider Nurse Practitioner Family | DX: Z12.11 Encounter for screening for malignant neoplasm of colon (principal); R43.2 Parageusia | CPT/HCPCS: 99202 ==

== ENCOUNTER 2025-07-02 08:46 | Outpatient (REF) | payer MEDICARE, SELFPAY ==
--- OUTSIDE RECORDS SUMMARY | 2025-01-02 07:20 | XMS_ITS ---
Author Organization [facility] Address [address] [place] [address] Care Team Providers Care Social Service Technician Name Role Phone Moise WALLACE, Winston Primary Care Provider Unavaila Wander Manzanares [phone] REASON FOR VISIT screening Encounters Encounter Location Date Provider Diagnosis [facility] [place] [address] [place], [place] [phone] 01/02/2025 Wander Vega Plan Of Treatment No Information Progress Notes * LADONNA HAM ManjitDOB: [birth year] (69 yo M)Acc No.[id number]:01/02/2025 COLON WITH MAC Patient: LADONNA BLACKBURN Provider: Candy Vega MD :1955 A ge:69 Y S ex:Male Date:01/02/2025 Address:[address] [place] [address] [address], [facility] Pcp:Winston Phipps MD Subjective: * Chief Complaints: [...] 01/02/2025 Generated for Catie veliz/Jayme/Jareditting on: 0 07/02/2025 09:53 AM EDT
--- NOTE | ~2025-07-02 | CT_ITS ---
EXAMINATION: CT CHEST WITH CONTRAST CLINICAL INFORMATION: Follow-up on non-small cell lung cancer. COMPARISON: March 12, 2025 TECHNIQUE: Multidetector volumetric CT imaging of the chest was obtained after the administration of 65 mL of Omnipaque 350 intravenous contrast without immediate adverse reactions. Axial MIP volume rendering provided. Sagittal and coronal reformatted images were obtained. This CT examination was performed using dose optimization techniques as appropriate, variously including the following: *Automated exposure control *Adjustment of mA and/or kV according to patient size (this includes techniques or standardized protocols for targeted exams where dose is matched to indication/reason for exam; i.e. extremities or head) *Use of iterative reconstruction technique. DLP: 137 mGy centimeter. FINDINGS: TAILOR GARMENT FITTER: Hyperinflated lungs. Patient's large body habitus. Multilevel spondylosis. LUNGS: There is a 14 x 18 mm spiculated noncalcified pulmonary nodule in the right upper lung lobe likely posterior segment. There is a 23 x 14 mm spiculated noncalcified pulmonary nodule in the posterior segment right upper lung lobe. There is a 6 mm noncalcified pulmonary nodule in the right lower lung lobe probably superior segment. Paraseptal emphysematous changes in the upper lung lobes. Centrilobular centimeters changes. Layering secretions in the dependent portion of the right mainstem bronchus. There is increased AP diameter and decreased transverse diameter of the trachea. MEDIASTINUM: There is soft tissue attenuation in the right pretracheal, subcarinal and right perihilar. No aneurysm or dissection, thoracic aorta. Calcified plaques in the thoracic aortic wall and its main branches. Calcified plaques in the coronary arteries. Small volume pericardial effusion. The main pulmonary artery and its main left and right branches are patent without intraluminal filling defects. The heart is small. No pneumomediastinum. No hemopericardium. PLEURA: Small to moderate volume right-sided pleural effusion. No pneumothorax. No calcified pleural plaques. AXILLA: Nonspecific prominent less than 11 mm axillary lymph nodes bilaterally. UPPER ABDOMEN: There is a 43 mm ovoid shaped low density at the posterior carla hepatic and posterior to the head and uncinate process of the pancreas and anterior to the IVC. OSSEOUS STRUCTURES: Multilevel cervical thoracic and upper lumbar spondylosis. There is a large Schmorl node in the inferior endplate of L1. No acute cortical disruption or gross malalignment. Sagittal sclerotic lesion in the left pedicle of T9. Small gynecomastia, bilaterally. CT/CT chest w IV con IMPRESSION: Overall stable to slightly larger spiculated noncalcified pulmonary nodules, right upper lung lobe. Stable soft tissue fullness mediastinum and carla hepatic/posterior peripancreatic. Aspiration. Questionable bone lesion/metastasis, left pedicle of T9. Fleischner guidelines were followed. Electronically signed by: Trent Mota MD 07/02/2025 10:03 AM EDT
[2025-07-02] MEDS: iohexoL 350 MG/ML 100 ML INFUS..BTL 65 ML IV (09:46)
--- OUTSIDE RECORDS SUMMARY | 2025-07-02 09:53 | XMS_ITS | Patient Health Record ---
Author Organization [facility] Address [address] [place] [address] Care Team Providers Care Supervisor Contact Lens Name Role Phone Moise WALLACE, Winston Primary Care Provider Wander Fried Unavailable [phone] Allergies No Known Allergies Reason For Referral [...] Status Risk Notes Problem Colon cancer screening (989595511) Colon cancer screening (Z12.11) Active confirmed Problem Pre-procedure evaluation check (393806385) Encounter for other preprocedural examination (Z01.818) Active confirmed Vital Signs Blood pressure diastolic 00 mm Hg 09/25/2024 Height 6 ft 1 in in 09/25/2024 Blood pressure systolic 00 mm Hg 09/25/2024 Weight 188 lbs 09/25/2024 BMI 24.80 kg/m2 09/25/2024 Encounters Encounter Location Date Provider Diagnosis [facility] [address] [place] [address] 09/25/2024 Wander Vega Colon cancer screeni ng Z12.11 and Encounter for other preprocedural examination Z01.818 [facility] [address] [place] [address] 11/20/2024 Wander Vega Assessments Encounter Date Diagnosis [...] Insured Coverage Start Date Coverage End Date [facility] [address] [address] [place] [id number] JITENDRA LADONNA Self - patient is the insured Medical (General) History Medical History History ICD Code Hypertension Denies [place],DM,CVA,Lung disease,renal dise ase Arthritis Negative screening colonoscopy > [address] Gates Surgical History Surgery Date(Month/Year) Back surgery
--- OUTSIDE RECORDS SUMMARY | 2025-07-02 09:54 | XMS_ITS | Clinical Summary ---
Author Organization [facility] Address [address] [place] [address] Phone Care Team Providers Care Merchant Miller Name Role Phone Physician, No Pcp Primary [...] 11/18/2023 Social Influencers of Health Screening 11/18/2023 Depression Screening 10/24/2024 COVID-19 Vaccine ( - 2023-2 5 season) 2025 Influenza Vaccine (#1) 2025 RSV Immunization Adult [...] topic Insurance [employer] MED[employer] Care Teams Merchant Miller Relationship Specialty Start Date End Date Physician, No Pcp PCP - General 10/11/24
== END 2025-07-02 08:47 | disposition home or self-care (01) ==
LOC: HO.CT 08:46
PROVIDERS: Visit Provider Internal Medicine Medical Oncology
DX: C34.90 Malignant neoplasm of unspecified part of unspecified bronchus or lung (principal); C78.7 Secondary malignant neoplasm of liver and intrahepatic bile duct
CPT/HCPCS: 71260; Q9967

== ENCOUNTER → 2025-07-02 08:48 | Outpatient (BNV) | payer MEDICARE, SELFPAY | PROVIDERS: Visit Provider Radiology Diagnostic Radiology | DX: R91.8 Other nonspecific abnormal finding of lung field (principal) | CPT/HCPCS: 71260 ==

== ENCOUNTER 2025-07-31 08:45 | Outpatient (AMB) | payer OTHER, SELFPAY ==
[2025-07-31 08:56] VITALS: BP 148/50; PULSE 55; RESP 18; TEMP 36.2; O2SAT 96; BMI 25.1
--- NOTE | 2025-07-31 08:56 | MHC.PC.OV ---
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 Accompanied by: Self / Same As Patient Allergies No Known Allergies Allergy (Verified 07/31/25 09:41) Medication List - Last Reconciled 07/31/25 by NELY Rich amlodipine 10 mg PO DAILY bisacodyl (Dulcolax (bisacodyl)) 20 mg (4 x 5 mg) PO ONCE 1 day budesonide-formoterol 160-4.5 mcg/actuation (Symbicort) 2 puffs inhalation BID 30 days dexamethasone 4 mg PO BID folic acid 1 mg PO DAILY ondansetron 8 mg PO Q8H PRN polyethylene glycol 3350 (Miralax) 238 grams PO ONCE Tobacco use date assessed: 07/31/25 Fall risk assessment: No Falls in past year Last assessed Fall Risk: 07/31/25 Dental Screening Dental Screen Date: 07/31/25 Did you have a dental visit in the last 12 months?: No Did you have a dental problem in the last 6 months where you did not have access to dental care?: No Was dental information given to patient?: No HPI 3 month HPI Details The patient is a 70-year-old male presenting with anemia due to chemotherapy and hypertension. The anemia is managed with blood transfusions approximately every three weeks, with the last transfusion following chemotherapy last . This intervention has been effective in improving his symptoms. Hypertension is controlled amlodipine, with blood pressure fluctuations noted but generally stable. The patient adheres to his medication regimen and has arranged for refills at the hospital pharmacy. The patient experiences a metallic taste due to chemotherapy, lasting about a week, but continues to eat adequately. Right knee pain is reported, particularly in the morning, with the use of a cane for stability. The pain was the initial health issue before other conditions developed. The patient has reduced tobacco use to less than a pack a day. chemo every 3 weeks, blood transfusion every 3 weeks [facility] Medical History Lung cancer COPD (chronic obstructive pulmonary disease) Pancreatic mass Lymphadenopathy Lung mass Nicotine dependence, cigarettes, uncomplicated SVT (supraventricular tachycardia) Edema Pressure ulcer Alcohol use disorder Cognitive disorder Rhabdomyolysis Hypertension Surgical History History of colonoscopy History of lumbar laminectomy Family History Father No problems noted. Mother Lung cancer Family/Other Lung cancer Throat cancer Social History Household Members: None Housing: Apartment Are you a primary residential care officer to a significant other at home: No Do you presently have visiting nurse or other home services: No Alcohol intake: current Alcohol intake frequency: 3 or more drinks per day Alcohol type: beer Comment: camera not available Patient Tobacco Use Status: Current everyday Tobacco user Tobacco use type: Cigarette Cigarette Packs Per Day: 0.5 Years Smoked: (onset 16yo, 1-1.5ppd x 53yrs, 60+PYH) e-Cigarette/Vaping Use: Never Used Second Hand Smoke Exposure: Yes service: No 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 identity: Male Cognitive needs: Yes (Cane) Hearing needs: No Vision needs: Yes (Glasses) Questionnaire Thrive Questionnaire Date Thrive assessed: 04/24/25 I am a: Patient What is your living situation today?: I have a steady place to live Within the past 12 months, did the food you bought not last and you didn't have the money to get more?: Never true Within the past 12 months, did you worry whether your food would run out before you got money to buy more?: Never true Do you have trouble paying for medicines?: Yes Do you have trouble getting transportation to medical appointments?: No Do you have trouble paying your heating and electricity bill?: Yes Do you have trouble taking care of your child, family member or friend?: No Do you have trouble with day-to-day activities such as bathing, preparing meals, shopping, managing finances, etc.?: No Are you currently unemployed and looking for a job?: Yes Are you interested in more education?: No Please select the resources that you would like help with: None Currently or been in a relationship where the following occur: No concerns reported THRIVE Score: 1 TATIANA-7 AMB Questionnaire TATIANA-7 Date TATIANA - 7 assessed: 01/01/25 Source: Developed by Drs. Wander Fox, Mallorie Reed, Dwight Vernon and colleagues, with an educational gabbi from [employer]. Review of Systems Const Denies headache(s) and Reports lethargy Eyes Denies loss of vision ENT Denies vertigo, Denies dizziness, Denies headache(s), Denies sore throat and Reports other (Metallic taste for a week after chemotherapy) Card Denies chest pain, Denies leg edema, Denies lightheadedness, Reports dyspnea on exertion (Chronic) and Reports other (BLE swelling) Resp Reports cough (Chronic), Denies hemoptysis, Reports dyspnea on exertion (Chronic) and Denies wheezing GI Denies abdominal pain, Denies melena, Denies constipation, Denies diarrhea and Denies vomiting Denies dysuria, Denies urinary frequency and Denies urinary urgency Musc Reports arthralgias (Right knee), Denies joint swelling, Denies numbness and Denies tingling Neuro Denies Abnormal speech present, Denies behavioral changes, Denies vertigo, Denies dizziness, Denies headache(s), Denies loss of vision, Denies memory loss, Denies numbness and Denies tingling Psych Denies anxiety, Denies behavioral changes, Denies depression, Denies memory loss and Denies panic attacks Barry/Lymph Denies easy bleeding and Denies easy bruising Aller/Immun Denies wheezing Physical exam (Primary Care) Vital Signs: Last Vital Signs Temp 97.1 F 07/31/25 08:56 Pulse 55 07/31/25 08:56 Resp 18 07/31/25 08:56 BP 148/50 H 07/31/25 08:56 Pulse Ox 96 07/31/25 08:56 Oxygen Delivery Method Room Air 07/31/25 08:56 BMI result Body Mass Index 25.1 Tobacco/Smoking Status: Tobacco use Status Tobacco use date assessed 07/31/25 07/31/25 09:03 Patient Tobacco Use Status Current everyday Tobacco 07/31/25 09:03 Tobacco use type Cigarette 07/31/25 09:03 e-Cigarette/Vaping Use Never Used 07/31/25 09:03 Thrive Assessment: Date of Thrive Assessment Date Thrive assessed 04/24/25 07/31/25 09:03 Currently or been in a relationship where the following occur: No concerns reported Const General: healthy appearing, no acute distress, alert and awake Nutritional Appearance: well nourished Orientation/consciousness: oriented to person, oriented to place and oriented to time HENMT Ears: TM's normal bilaterally General nose exam: Normal nasal mucous membranes and turbinates present Eyes Conjunctivae: conjunctivae normal Sclerae: sclerae normal Pupils: Equal, round and reactive pupils present Neck Neck: Yes no lymphadenopathy and Yes no JVD Thyroid: Thyroid normal Carotids: no bruits Resp Effort & Inspection: normal respiratory effort and not tachypneic Auscultation: no crackles, no rales, no rhonchi and no wheezes Cardio Rate: regular rate Rhythm: regular rhythm Heart sounds: no murmurs and normal S1 and S2 GI Palpation (GI): Soft to palpation, nontender, no hepatomegaly and no splenomegaly Auscultation: normal bowel sounds Skin General skin exam: dry skin and other (Hyperpigmentation BLE) Neuro General: oriented to person, oriented to place and oriented to time Cranial nerves: Yes Equal, round and reactive pupils present Speech: No Abnormal speech present Gait exam (Neuro): Assisted gait required (Cane) Motor exam (neuro): no tremor noted Extrem Right upper extremity: full ROM Left upper extremity: full ROM Right lower extremity: full ROM and edema Details: pitting and 2+ Left lower extremity: full ROM and edema Details: pitting and 2+ Psych Mental Status: mental status grossly normal Speech and movement: Normal speech and movement present Affect: normal affect Attitude: cooperative Thought process: Normal thought process present Results Reviewed Results Reviewed: Laboratory Tests 11/03/22 07/25/25 03:00 08:38 WBC 9.5 RBC 2.11 L Hgb 7.4 L Hct 20.9 L* MCV 99.1 H MCH 35.1 H MCHC 35.4 RDW 23.6 H Plt Count 450 H MPV 9.6 Sodium 137 Potassium 4.4 Chloride 100 Carbon Dioxide 27 Anion Gap 14 BUN 16 Creatinine 1.04 Estim Creat Clear Calc 77.8 Estimated GFR > 60 Random Glucose 136 H Calcium 8.7 Total Bilirubin 0.2 AST 39 H ALT 13 Alkaline Phosphatase 161 H Total Protein 6.2 L Albumin 3.1 L TSH 1.16 Urine Color Dark Yellow Urine Appearance Clear Urine pH 5.5 Ur Specific [place] 1.025 Urine Protein 30 (1+) H Urine Glucose (UA) Negative Urine Ketones Negative Urine Blood Negative Urine Nitrite Negative Ur Leukocyte Esterase Trace H Urine RBC 0-2 Urine WBC 0-5 Ur Squamous Epith Cells 0-2 Urine Bacteria None Seen Hyaline Casts 0-2 Coding Level of Care Code Est Pt Level 4 (43124) Diagnoses Alcoholism F10.20 Primary hypertension I10 Hypertension type: primary hypertension Hyponatremia E87.1 Hepatic lesion K76.9 Pancreatic mass K86.89 Benign prostatic hyperplasia without lower urinary tract symptoms N40.0 Lower urinary tract symptom presence: symptoms absent Anemia, unspecified type D64.9 Anemia type: unspecified type 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 Encouraged cessation, reports that he has cut back a lot already (2) Hypertension: Code(s): I10 - Essential (primary) hypertension Category: Medical Qualifiers: Hypertension type: primary hypertension Qualified Code(s): I10 - Essential (primary) hypertension Plan: Blood pressure 148/50 goal is sytolic less than 140mm hg Encouraged low-salt diet and decreasing alcohol and caffeine intake Continue amlodipine 10 mg daily (3) Hyponatremia: Code(s): E87.1 - Hypo-osmolality and hyponatremia Category: Medical Plan: Appears to be stable. Encouraged lowering alcohol intake. Reinforced fluid restrictions. Per patient, he is already not drinking much. The patient reports to only drinking like 2 bottles of water, but he is not factoring the his coffee and beer intakes. Reports that he is not worried about this, given everything that is going on. (4) Hepatic lesion: Code(s): K76.9 - Liver disease, unspecified Category: Medical Plan: Ongoing chemotherapy. Follow up with Oncology as scheduled (5) Pancreatic mass: Code(s): K86.89 - Other specified diseases of pancreas Category: Medical Plan: Ongoing chemotherapy, follow up with Oncology as scheduled (6) BPH (benign prostatic hyperplasia): Code(s): N40.0 - Benign prostatic hyperplasia without lower urinary tract symptoms Category: Medical Qualifiers: Lower urinary tract symptom presence: symptoms absent Qualified Code(s): N40.0 - Benign prostatic hyperplasia without lower urinary tract symptoms Plan: Reports getting up 2 times a night. However, he is drinking close to bedtime. This is not bothersome, per patient. 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: Code(s): C34.90 - Malignant neoplasm of unspecified part of unspecified bronchus or lung; C78.7 - Secondary malignant neoplasm of liver and intrahepatic bile duct Category: Medical Plan: Ongoing chemotherapy Follow up with Oncology as scheduled (9) Primary osteoarthritis of right knee: Code(s): M17.11 - Unilateral primary osteoarthritis, right knee Category: Medical Plan: Chronic right knee pain Multiple cortisone shots reports that the shots stop working, the last one he received, he did not have any relief recommended for surgery, but had to put this on hold due to his cancer diagnosis Uses a cane to ambulate, reports that he is doing ok for now (10) COPD (chronic obstructive pulmonary disease): Code(s): J44.9 - Chronic obstructive pulmonary disease, unspecified Category: Medical Qualifiers: COPD type: chronic bronchitis Chronic bronchitis type: simple Qualified Code(s): J41.0 - Simple chronic bronchitis Plan: chronic sob, denies any increase in SOB continue symbicort 2 puffs inh bid encouraged smoking cessation (11) Nicotine dependence, cigarettes, uncomplicated: Comment: (onset 16yo, 1-1.5ppd x 53yrs, 60+PYH+fam hx lung ca - brother/mom) Code(s): F17.210 - Nicotine dependence, cigarettes, uncomplicated Category: Medical Plan: Encouraged cessation reports that he is closer to only using half a pack. Medications: Refilled amlodipine 10 mg PO DAILY 90 tabs 6RF budesonide-formoterol 160-4.5 mcg/actuation (Symbicort) 2 puffs inhalation BID 10.2 grams 3RF 30 days J44.89 - Other specified chronic obstructive pulmonary disease
== END 2025-07-31 09:54 | disposition home or self-care (01) ==
LOC: HO.HMCH 08:46
DX: J41.0 Simple chronic bronchitis (principal); F10.20 Alcohol dependence, uncomplicated; C34.90 Malignant neoplasm of unspecified part of unspecified bronchus or lung; C78.7 Secondary malignant neoplasm of liver and intrahepatic bile duct; I10 Essential (primary) hypertension; E87.1 Hypo-osmolality and hyponatremia; K76.9 Liver disease, unspecified; K86.89 Other specified diseases of pancreas; N40.0 Benign prostatic hyperplasia without lower urinary tract symptoms; D64.9 Anemia, unspecified; M17.11 Unilateral primary osteoarthritis, right knee; F17.210 Nicotine dependence, cigarettes, uncomplicated

== ENCOUNTER 2025-08-27 10:04 | Inpatient (IN) | payer MEDICARE, MEDICAID, SELFPAY ==
--- OUTSIDE RECORDS SUMMARY | 2025-01-02 06:20 | XMS_ITS ---
Author Organization [facility] Address [address] [place] [address] Care Team Providers Care Cloth Cutter Name Role Phone Moise WALLACE, Winston Primary Care Provider Unavaila Wander Manzanares [phone] REASON FOR VISIT screening Encounters Encounter Location Date Provider Diagnosis [facility] Outpatient [address] [place], [place] [id number] 01/02/2025 Wander Vega Plan Of Treatment No Information Progress Notes * LADONNA HAM ManjitDOB: [birth year] (70 yo M)Acc No.[id number]:01/02/2025 COLON WITH MAC Patient: LADONNA BLACKBURN Provider: Candy Vega MD :1955 A ge:69 Y S ex:Male Date:01/02/2025 Address:[address] [place] [address] [address], [facility] Pcp:Winston Phipps MD Subjective: * Chief Complaints: * 1 . Screening. * Medical History: Objective: * Vitals: Assessment: Plan: * Treatment: * * The named appointment provid er may or may not be the originator of this progress note, and it is not deemed complete until electronically signed by the appointment provider. Sign off status: Pending * Provider: Candy Vega MD Date: 0 01/02/2025 Generated for Catie veliz/Jayme/Brigida on: 10/27/2024 12:11 PM EST
[2025-08-27] VITALS (9 sets, daily range): BP systolic 108–145; BP diastolic 53–65; PULSE 54–91; RESP 15–24; TEMP 36–36.8; O2SAT 95–99; BMI 26.4; BMI 26.1
--- NOTE | ~2025-08-27 | CT_ITS ---
EXAMINATION: CT ANGIOGRAM CHEST CLINICAL INFORMATION: Dyspnea, tachycardia, active lung CA. COMPARISON: CT chest with contrast 07/02/2025. TECHNIQUE: Multiple axial images were obtained through the chest after the administration of 65 mL of Omnipaque 350 intravenous contrast. Extensive vascular post-processing including two-dimensional and three-dimensional reformatted images were created and reviewed on an independent workstation. This CT examination was performed using dose optimization techniques as appropriate, variously including the following: *Automated exposure control *Adjustment of mA and/or kV according to patient size (this includes techniques or standardized protocols for targeted exams where dose is matched to indication/reason for exam; i.e. extremities or head) *Use of iterative reconstruction technique FINDINGS: VASCULAR: Study quality is diagnostic. There is no evidence of pulmonary embolus. There is a normal caliber main pulmonary artery. There is no evidence of right heart strain. There is no reflux of contrast into the IVC. The aorta is normal in caliber and contour without evidence of dissection or acute aortic syndrome. There is moderate atheromatous calcification. Great vessels branch normally and are patent. The heart size is normal. There is no pericardial effusion. LUNGS: There is a small layering right pleural effusion. There is a trace layering left pleural effusion. There are 2 adjacent stellate nodular masses in the posterior right upper lobe, the larger, more lateral measuring 2.2 x 1.9 cm (previously 1.6 x 1.8 cm), and the more medial measuring 1.3 x 1.0 cm (previously 1.4 x 1.0 cm), the more lateral slightly increased in size compared with the prior exam when measured similarly. A previously identified 6 mm nodule in the superior segment right lower lobe is not well seen or possibly obscured by the right pleural effusion. No new right-sided pulmonary nodules. No new left-sided pulmonary nodules. Paraseptal and centrilobular emphysema again noted. There is no pneumothorax. There is mild thickening of the small airways suggesting chronic bronchitis. MEDIASTINUM: Saber-sheath trachea present. No abnormal lymphadenopathy or masses of the mediastinum. Partially imaged thyroid is normal. No discrete esophageal abnormality. AXILLA/CHEST WALL: There is mild bilateral male gynecomastia. There is mild anasarca of the soft tissues. No abnormal lymphadenopathy is evident. UPPER ABDOMEN: Imaged upper abdominal contents demonstrate a small amount of fluid in the anterior pararenal space bilaterally. This is of uncertain etiology but likely related to fluid overload. There is a similar-appearing infiltrating amorphous infiltrating soft tissue abnormality abutting the carla hepatis, just superior to the pancreatic head, anterior to the IVC. A conglomerate of neoplastic nodes is suspected as seen on MRCP of 11/30/2024. OSSEOUS STRUCTURES: There is no suspicious lytic or blastic bone lesion identified. There is a large inferior endplate Schmorl's node in L1. There are mild degenerative changes of the spine. CT/CT angio chest PE protocol IMPRESSION: 1. There is no evidence of pulmonary embolus. There is no evidence of acute aortic syndrome or aneurysm. 2. Minimal increase in the 2 dominant stellate pulmonary masses in the right upper lobe. 3. Small layering right pleural effusion. Trace left effusion. 4. Emphysema, stable. Saber-sheath trachea. 5. Upper abdominal abnormalities as discussed. Electronically signed by: Paolo Quesada MD 08/27/2025 02:21 PM VANDANA
--- NOTE | ~2025-08-27 | US_ITS ---
EXAMINATION: US TRIPLEX LOWER EXTREMITY, BILATERAL CLINICAL INFORMATION: Pain and edema, lower extremities. COMPARISON: None available. TECHNIQUE: Color-flow triplex imaging with spectral analysis and compression Doppler were performed on the bilateral lower extremities. FINDINGS: Respiratory variation, normal compression and augmented flow are demonstrated in the interrogated common femoral vein, superficial femoral vein, profunda femoral vein, popliteal vein and midcalf peroneal and posterior tibial venous segments, both lower extremities. There is no Hernandez's cyst. Soft tissue edema pattern without fluid collections. US/US venous duplex LE BI IMPRESSION: No acute deep venous thrombosis interrogated veins of the lower extremities. Negative for DVT. Electronically signed by: Trent Mota MD 08/27/2025 10:57 AM VANDANA
--- NOTE | 2025-08-27 10:07 | ED.GENADULT ---
HPI - General Adult General Chief complaint: Dyspnea Stated complaint: SOB, leg swelling, lightheaded Time Seen by Provider: 08/27/25 10:10 Source: patient, family and old records reviewed Mode of arrival: wheelchair Limitations: no limitations History of Present Illness ED Provider: GABINO DIAZ narrative: 62-year-old male with past medical history of COPD not on home O2, small-cell lung cancer currently on chemo follows with Dr. Tanner last infusion was 08/15, recurrent anemia status post chemo, hypertension, BPH, CKD, , prior EtOH use, he has no history of blood clots or known cardiac disease. He notes the last 1 week he has developed bilateral lower extremity swelling left greater than right now with some increased redness on the left upper thigh, he denies trauma. He also has increased shortness of breath and feels very weak and winded. He denies any chest pain, cough, sputum, fever. He states he has never had any issues such as congestive heart failure and takes no diuretics. He was referred by his oncologist to the emergency department to evaluate for DVT/PE, CHF, effusion MD complaint: Dyspnea Onset (ago): week(s) (One) Location: chest Severity: moderate Relieving factors: immobilization Exacerbating factors: movement Associated symptoms: loss of appetite, malaise, shortness of breath and weakness Treatments prior to arrival: none Related Data Previous Rx's ?Medication ?Instructions ?Recorded folic acid 1 mg tablet 1 mg PO DAILY #90 tabs 02/28/25 bisacodyl 5 mg tablet,delayed 20 mg (4 x 5 mg) PO ONCE 06/19/25 release (Dulcolax (bisacodyl)) constipation 1 day #4 tabs polyethylene glycol 3350 17 238 g PO ONCE #238 grams 06/19/25 gram/dose oral powder (Miralax) dexamethasone 4 mg tablet 4 mg PO BID #60 tabs 07/25/25 ondansetron 8 mg disintegrating 8 mg PO Q8H PRN Nausea And 07/25/25 tablet Vomiting #60 tabs amlodipine 10 mg tablet 10 mg PO DAILY #90 tabs 07/31/25 budesonide-formoterol HFA 160 2 puff inhalation BID 30 days 07/31/25 mcg-4.5 mcg/actuation aerosol #10.2 grams inhaler (Symbicort) Allergies Allergy/AdvReac Type Severity Reaction Status Date / Time No Known Allergies Allergy Verified 08/27/25 10:10 Review of Systems Review of Systems: Constitutional : No Fever, No Chills ENT/Mouth : No sore throat, No Rhinorrhea, No Swallowing Difficulty Eyes: No Eye Pain, No Swelling, No Redness Cardiovascular : No Chest Pain, positive SOB, No Orthopnea, positive Edema Respiratory : No Cough, No Sputum, No Wheezing, positive dyspnea Gastrointestinal : No Nausea, No Vomiting, No Diarrhea, No abdominal Pain, No Hematochezia, No Melena Genitourinary : No Dysuria, No Urinary Frequency, No Hematuria Musculoskeletal : No joint pain, No Myalgias Skin : No Skin Lesions, No rash Neuro : No Weakness, No Numbness, No Dizziness, No Headache All other systems reviewed and are negative [facility] Past Medical History Attestation statement: The following information was validated with the patient. Source: old records reviewed Medical History Lung cancer COPD (chronic obstructive pulmonary disease) Pancreatic mass Lymphadenopathy Lung mass Nicotine dependence, cigarettes, uncomplicated SVT (supraventricular tachycardia) Edema Pressure ulcer Alcohol use disorder Cognitive disorder Rhabdomyolysis Hypertension Surgical History History of colonoscopy History of lumbar laminectomy Family History Family History Father No problems noted. Mother Lung cancer Family/Other Lung cancer Throat cancer Social History Social History Household Members: None Housing: Apartment Are you a primary healthcare science specialist to a significant other at home: No Do you presently have visiting nurse or other home services: No Alcohol intake: current Alcohol intake frequency: 0-2 drinks per day Alcohol type: beer Comment: camera not available Patient Tobacco Use Status: Current everyday Tobacco user Tobacco use type: Cigarette Cigarette Packs Per Day: 0.5 Years Smoked: (onset 16yo, 1-1.5ppd x 53yrs, 60+PYH) e-Cigarette/Vaping Use: Never Used Second Hand Smoke Exposure: Yes Advance Directives Date on File: 12/14/22 service: No 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 identity: Male Cognitive needs: Yes (Cane) Hearing needs: No Vision needs: Yes (Glasses) Physical Exam ED Vital Signs: Vital Signs - 24 hr 08/27/25 10:06 08/27/25 12:45 08/27/25 14:06 Temperature 96.8 F 98.1 F Pulse Rate 91 78 Pulse Rate [Left Apical] 58 Respiratory Rate 22 H 21 H Blood Pressure 116/53 L 108/56 L Pulse Oximetry 96 99 Oxygen Delivery Method Room Air Room Air 08/27/25 14:20 08/27/25 14:21 Temperature 97.8 F Pulse Rate 54 89 Pulse Rate [Left Apical] Respiratory Rate 24 H 15 Blood Pressure 132/58 L 120/60 Pulse Oximetry 98 Oxygen Delivery Method Room Air BMI result Body Mass Index 26.4 Appearance: Alert. Oriented X3. Mild acute distress. Eyes: Pupils equal, round and reactive to light. ENT: Pharynx normal. Neck: Normal inspection. Neck supple. CVS: Intermittently tachycardic with frequent PAC l heart rate and rhythm. Pulses normal. Respiratory: Mild respiratory distress with short phrases, tachypnea, mild retractions Breath sounds both bases are quite diminished with rales on left base Abdomen: Soft and nontender. Skin: Skin warm and dry. Pale skin color. Normal skin turgor. Extremities: Bilateral 2+ pitting edema up to both thighs left greater than right with left lateral thigh redness and warmth, no fluctuance or abscess felt Neuro: Oriented X 3. No motor deficit. No sensory deficit. CN2-12 intact Course Course Course Narrative: This is a rapid medical exam performed by Renan Valente NP: Additional HPI, ROS, PE not included below will be deferred to primary provider. Patient is a 70y/o M with pmhx non small cell lung CA with mets to liver, last chemo 08/15, HTN, COPD, CKD 3a presenting to the ED with complaint of dyspnea worse with exertion, as well as left upper leg pain and swelling. Plan: EKG, labs, U/S Reevaluation(s) Reevaluation #1: Fatemeh Lloyd, DO 08/27/25 1128 Will give 1 unit of packed RBCs at the time given hemoglobin of 6.9, his baseline has been in the mid sevens recently Reevaluation #2: Patient aware of plan for admission he is aware that as of what his sister Rosalie know that he is going to be admitted Medications Administered Discontinued Medications Generic Name Dose Route Start Last Admin Trade Name Gilda PRN Reason Stop Dose Admin Piperacillin Sod/Tazobactam 50 mls @ 100 mls/hr 08/27/25 10:30 08/27/25 11:43 Sod 3.375 gm/ Sodium Chloride IV 08/27/25 10:59 Infused ONCE ONE Infusion Iohexol 100 ml 08/27/25 13:49 08/27/25 13:50 Iohexol 350 Mg/Ml 100 Ml Infus..Btl IV 08/27/25 13:50 65 ml ONCE ONE Administration Procedures Procedure Narrative Procedure Narrative: EMERGENCY ULTRASOUND INTERPRETATION-Limited Echocardiography? The study reveals:? Impression: NORMAL LV FUNCTION, trace PERICARDIAL EFFUSION Emergent Cardiac for Indication:? Views Used: PLAX, PSSA, A4, SX, IVC Pericardial Effusion/Tamponade Findings: NONE RV Dilation (> LV diam in 4ch apical):? NONE Global LV Fxn: NORMAL IVC Dilation and Resp Variation: Has increased respiratory variation Performed by: Gabino Date: 08/27/2025 Time: 11: CPT:[id number]; Reference Codes? [email or web address]://bit.ly/[email or web address] Ultrasound Guided Peripheral Intravenous Catheter Placement Date 08/27/2025/Time: 13:32 Indication: Intravenous Access Location: [L] arm Provider: GABINO Cruz was approached by nursing staff and informed that multiple unsuccessful attempts had been made to establish IV access in the patient. The patients arm was surveyed with the ultrasound for verification of vessel collapsibility, patency, depth and caliber, as well as identification of nearby structures. The target area was prepped with chlorhexidine. A tourniquet was placed proximally on the extremity. Under real-time ultrasound guidance, a 20 gauge IV catheter was advanced into the target vein. Dark blood was visualized in the flash chamber. The catheter was easily advanced into the vein. The catheter was evacuated of air and flushed with sterile saline. The catheter was secured in place with a tegaderm. The patient tolerated the procedure well and there were no complications. Estimated Blood Loss: 1mL Total Time for Procedure: 5min Performed by: Gabino Date: 08/27/2025 Time: 13:32 CPT: +07598 ; Reference Codes? https://bit.ly/[email or web address] Medical Decision Making Medical Decision Making MDM Narrative: 62-year-old male with past medical history of COPD not on home O2, small-cell lung cancer currently on chemo follows with Dr. Tanner last infusion was 08/15, recurrent anemia status post chemo, hypertension, BPH, CKD, , prior EtOH use who now presents with bilateral leg edema and concern for cellulitis on left lower extremity as well as increased work of breathing he is in mild distress but not hypoxic he has frequent PACs on tele. He is going to get labs, type and screen, blood cultures, EKG, troponin/BNP, rapid bedside echo for pericardial effusion, he is going to get DVT studies of bilateral extremities and PE study of the chest. If he needs blood thinners he does have history of recurrent anemia and need for transfusion but he denies any bleeding issues such as GI bleed Differential Diagnosis Differential Diagnoses: The differential diagnosis associated with the presentation includes Cellulitis, pneumonia, pericardial effusion, pleural effusion, pulmonary embolus, dependent edema, congestive heart failure Admission/Observation Consideration of admission/observation: Escalation of care including admission/observation considered Consult Healthcare Provider Management of the patient was discussed with: Hospitalist and Supervisor Wet Pour (Dr. Tanner called ahead and notified that patient will be coming to the ED with symptoms) Lab Data [facility] Lab Attestation statement: I reviewed the patient's lab results. 08/27/25 10:58 08/27/25 10:58 Labs: Lab Results 08/27/25 08/27/25 08/27/25 Range/Units 10:57 10:58 13:28 WBC 7.7 (4.8-10.8) X10*3/uL RBC 2.10 L (4.60-5.80) X10*6/uL Hgb 6.9 L* (14.0-18.0) g/dl Hct 20.4 L* (42.0-52.0) % MCV 97.1 (80.0-98.0) fL MCH 32.9 (27.0-33.0) pg MCHC 33.8 (31.0-36.0) g/dl RDW 24.1 H (11.0-16.0) % Plt Count 77 L D (160-400) X10*3/uL MPV Not Reportable Immature Gran % (Auto) 0.8 H (0.0-0.4) % Neut % (Auto) 81.9 H (45-73) % Lymph % (Auto) 15.4 L (20-40) % [place] % (Auto) 1.8 L (2-11) % Eos % (Auto) 0.1 (0-4) % Baso % (Auto) 0.0 (0-2) % Lymph # (Auto) 1.2 (1.2-4.9) X10*3/uL [place] # (Auto) 0.1 (0.1-1.2) X10*3/uL Eos # (Auto) 0.0 (0.0-0.4) X10*3/uL Baso # (Auto) 0.0 (0.0-0.2) X10*3/uL Abs Immat Gran (auto) 0.06 H (0.00-0.03) X10*3/uL Absolute Neuts (auto) 6.3 (2.0-8.3) x10*3/uL Absolute Nucleated RBC 0.030 H (0.0-0.012) X10*3/uL Nucleated RBC % (auto) 0.4 H (0.0-0.2) /100WBC Smear Tech's Comments VERIFIED PT 12.9 H (10.9-12.4) SEC INR 1.1 (0.9-1.1) Sodium 131 L (135-145) mmol/L Potassium 3.7 (3.3-5.1) mmol/L Chloride 96 (96-108) mmol/L Carbon Dioxide 25 (22-29) mmol/L Anion Gap 14 (12-20) BUN 17 H (9-16) mg/dL Creatinine 1.26 (0.5-1.4) mg/dL Estim Creat Clear Calc 63.4 Estimated GFR 57 Random Glucose 88 (60-115) mg/dL Lactic Acid 2.6 H* (0.5-2.0) mmol/L Lactic Acid F/U @ 2Hr 1.1 (0.5-2.0) mmol/L Calcium 8.7 (8.4-10.2) mg/dL Magnesium 2.0 (1.6-2.6) mg/dL Total Bilirubin 0.4 (0.0-1.0) mg/dL AST 39 H (5-37) U/L ALT 12 (0-40) U/L Alkaline Phosphatase 131 H (39-117) U/L Troponin I High Sens 15.7 D (<3.5-35.0) ng/L NT-Pro-B Natriuret Pep 2681.5 H (<300) pg/mL Total Protein 6.1 L (6.5-8.0) g/dL Albumin 2.7 L (3.5-5.0) g/dL COVID-19 (YE) Negative (Negative) COVID-19 Clin Com See Note Influenza Type A (JULIA) Negative (Negative) Influenza Type B (JULIA) Negative (Negative) Influenza A & B Note See Note Blood Type A Positive Antibody Screen NEGATIVE Crossmatch See Detail Independent Interpretation I performed an independent interpretation of an: EKG, Ultrasound (No DVT) and CT Scan Interpretation: Rate: 72 Rhythm: Normal sinus rhythm with PACs Holden: Normal Normal P waves. Normal JEANE. Normal QRS complex. ST T wave : No ST-elevation but has flat T-waves in anterior leads also has artifact and aVL qTC: 4/4 prior studies: More pronounced nonspecific flattening T-waves The study has been interpreted contemporaneously by me. . Radiology Impression Discussion of test interpretation with radiology: I have reviewed the radiologist's reading. Independent Historian Clinical information obtained from an independent historian. History obtained from or confirmed by: Other External Record Review External record reviewed: Inpatient record and Outpatient record Critical Care Time Critical Care Time Critical Care Time: Yes Total Critical Care Time: 60 Attestation: Time is exclusive of separately billable procedures. Time includes: direct patient care, patient reassessment, coordination of patient care, interpretation of data (laboratory data, pulse oximetry, chest xrays), review of patient's medical records, medical consultation and documentation of patient care. Transfusion of blood products Procedures excluded from critical care time: central intravenous line placement and electrocardiography. I attest to this time spent taking care of the patient Discharge Plan Discharge Clinical Impression: Anemia in chronic illness, Acute dyspnea, Cellulitis of left leg, Edema, peripheral Patient Disposition: Admitted As Inpatient Print Language: Sammarinese
--- NOTE | 2025-08-27 10:08 | ECG_ITS ---
Test Reason : SOB Blood Pressure : */* mmHG Vent. Rate : 72 BPM Atrial Rate : 84 BPM P-R Int : 118 ms QRS Dur : 80 ms QT Int : 406 ms P-R-T Axes : 79 56 73 degrees QTcB Int : 444 ms Sinus rhythm with marked sinus arrhythmia Nonspecific ST and T wave abnormality Abnormal ECG When compared with ECG of 11-Dec-2024 11:56, Premature ventricular complexes are no longer Present Nonspecific T wave abnormality now evident in Lateral leads Referred By: Kenna Valente Electronically Signed By: Jaron Mccarthy
[2025-08-27 11:22] LABS: INTERNATIONAL NORM RATIO 1.1 (0.9-1.1); Imm Gran Abs Auto 0.06 X10*3/uL (0.00-0.03); Imm Gran Pct Auto 0.8 % (0.0-0.4); Lymphocytes Absolute Auto 1.2 X10*3/uL (1.2-4.9); MANUAL DIFF FLAG SCAN; Mean Corpuscular HGB Conc 33.8 g/dl (31.0-36.0); Mean Corpuscular Hemoglobin 32.9 pg (27.0-33.0); Mean Corpuscular Volume 97.1 fL (80.0-98.0); NRBC Abs Auto 0.030 X10*3/uL (0.0-0.012); NRBC Pct Auto 0.4 /100WBC (0.0-0.2); PLT CLUMP 1; Prothrombin Time 12.9 SEC (10.9-12.4); Red Blood Count 2.10 X10*6/uL (4.60-5.80); SCAN SMEAR FLAG 1
[2025-08-27 11:23] LABS: White Blood Count 7.7 X10*3/uL (4.8-10.8)
[2025-08-27 11:24] LABS: Hematocrit 20.4 % (42.0-52.0); Hemoglobin 6.9 g/dl (14.0-18.0)
--- NOTE | 2025-08-27 11:26 | PC.NURSE ---
patient a&ox3, lungs diminished throughout/rr equal/non labored, pt notably dyspnic when he was standing, 3+ BLE edema, presently pt sinus rhythm on monitor, ekg performed, pt very difficult stick- multiple attempts by multiple nurses to obtain IV access, pt also difficult for straight sticking- multiple attempts made. Iv was finally obtained as were labs- abx hung per order, pt moved from room 25 to room 23 to be closer to nurses station. call dobson within reach, plan of care ongoing.
[2025-08-27 11:31] LABS: COVID-19 Test Negative (Negative); IDNOW Serial# 55D5AD1C; IDNOW Serial# 58CA691E; Influenza B2 Negative (Negative)
[2025-08-27 11:34] LABS: Alanine Aminotransferase 12 U/L (0-40); Albumin Level 2.7 g/dL (3.5-5.0); Alkaline Phosphatase 131 U/L (39-117); Anion Gap 14 (12-20); Aspartate Amino Transferase 39 U/L (5-37); Blood Urea Nitrogen 17 mg/dL (9-16); Calcium 8.7 mg/dL (8.4-10.2); Carbon Dioxide 25 mmol/L (22-29); Chloride 96 mmol/L (96-108); Creatinine Clr Calc Pharmacy 63.4; Estimated Glomerular Filt Rate 57; Magnesium 2.0 mg/dL (1.6-2.6); Potassium 3.7 mmol/L (3.3-5.1); Sodium 131 mmol/L (135-145); Total Protein 6.1 g/dL (6.5-8.0)
[2025-08-27 11:35] LABS: NT Pro B Type Natriuretic Pept 2681.5 pg/mL (<300); Troponin-I High Sensitivity 15.7 ng/L (<3.5-35.0)
--- NOTE | 2025-08-27 11:57 | PC.NURSE ---
pt iv site infiltrated, provider notified
[2025-08-27 12:01] LABS: Platelet Count 77 X10*3/uL (160-400)
--- OUTSIDE RECORDS SUMMARY | 2025-08-27 12:11 | XMS_ITS | Clinical Summary ---
Author Organization [facility] Address [address] [place] [address] Phone Care Team Providers Care Remote Advisor Name Role Phone Physician, No Pcp Primary Care Provider Unavaila ble Social History Tobacco Use Types Packs/Day Years Used Date Smoking Tobacco: Never Assessed Sex and Gender Information Value Date Recorded Sex Assigned at Not on file Legal Sex Male 9:13 PM EST Gender Identity Not on file Sexual Orientation Not on file Plan of Treatment Health Maintenance Due Date Last Done Comments Colorectal Cancer Screening: Colonoscopy 1957 DTaP,Tdap,and Td Vaccines (1 - Tdap) 1976 Pneumococcal Vaccine: 50+ Ye ars (1 of 1 - PCV) 2007 Zoster Vaccines (1 of 2) 2007 Abdominal Aortic Aneurysm (A AA) Screen 11/18/2023 Cholesterol Screening (Lipid Panel) 11/18/2023 Falls Risk Assessment 11/18/2023 Hepatitis C Screening 11/18/2023 Medicare Annual Wellness Visit 11/18/2023 Social Influencers of Health Screening 11/18/2023 Depression Screening 10/24/2024 COVID-19 Vaccine (1 - 2023-2 5 season) 2025 Influenza Vaccine [...] topic Insurance [employer] MED[employer]ARE Care Teams Remote Advisor Relationship Specialty Start Date End Date Physician, No Pcp PCP - General 10/11/24
--- OUTSIDE RECORDS SUMMARY | 2025-08-27 12:11 | XMS_ITS | Patient Health Record ---
Author Organization [facility] Address [address] [place] [address] Care Team Providers Care Customer Success Representative Name Role Phone Winston Phipps MD Primary Care Provider Wander Fried Unavailable [phone] Allergies No Known Allergies Reason For Referral No Information Medications Medication SIG (Take, Route, Fr equency, Duration) Notes Start Date End Date Status Motrin prn Active Lisinopril 10 MG Oral; Duration: 90 Active Social History Tobacco Use: Social History Observation [...] Status Risk Notes Problem Colon cancer screening (371739601) Colon cancer screening (Z12.11) Active confirmed Problem Pre-procedure evaluation check (593796239) Encounter for other preprocedural examination (Z01.818) Active confirmed Vital Signs Blood pressure diastolic 00 mm Hg 09/25/2024 Height 6 ft 1 in in 09/25/2024 Blood pressure systolic 00 mm Hg 09/25/2024 Weight 188 lbs 09/25/2024 BMI 24.80 kg/m2 09/25/2024 Encounters Encounter Location Date Provider Diagnosis [facility] [address] [place] [address] 09/25/2024 Wander Vega Colon cancer screeni ng Z12.11 and Encounter for other preprocedural examination Z01.818 [facility] [address] [place] [address] 11/20/2024 Wander Vega Assessments Encounter Date Diagnosis [...] Insured Coverage Start Date Coverage End Date [facility] [address] [address] [place] [address] [id number] JITENDRA LADONNA Self - patient is the insured Medical (General) History Medical History History ICD Code Hypertension Denies OR,DM,CVA,Lung disease,renal dise ase Arthritis Negative screening colonoscopy > [address] Gates Surgical History Surgery Date(Month/Year) Back surgery
[2025-08-27 13:09] LABS: Reflex Lactate? Lactic Acid Added
[2025-08-27] MEDS: iohexoL 350 MG/ML 100 ML INFUS..BTL IV (13:50)
[2025-08-27 13:51] LABS: ~Lactic Acid-LAB USE ONLY 1.1 mmol/L (0.5-2.0)
--- NOTE | 2025-08-27 16:21 | PHA.MEDREC ---
Addendum entered by Don Agosto, PharmD 08/27/25 17:18: MED REC CHECKED BY [facility] Original Note: Pharmacy Consult ? Medication Reconciliation Pharmacy has completed the medication reconciliation. Patient was able to confirm all of his medications. Patient confirmed Dexamethasone 4 mg (Take 4 mg p.o. b.i.d. the day before chemo, and for the following 2 days. Repeat Q 21 days), last chemo day wad 08/15/25). patient had all his morning medications today.
[2025-08-27] MEDS: Furosemide 20 MG/2 ML VIAL IVPUSH (16:35)
--- NOTE | 2025-08-27 18:17 | P.HPHOSP_ITS ---
History of Present Illness Date of Service: 08/27/25 Attending physician on admission: Alis Johnson Chief Complaint: SOB Pt is a 70-year-old male with a PMH significant for?COPD not on home O2, HTN, small-cell lung cancer currently on chemo follows with Dr. Tanner with last infusion 08/15, and recurrent anemia often requiring transfusions s/p chem who presents to the ED with?SOB, lightheadedness, and lower leg swelling. Symptom onset has varied: leg swelling and pain, especially in thighs, ongoing for the past couple of weeks; SOB, JAVIER, and difficulty breathing x1 week; and lightheadedness x2-3 days. Denies any signs of bleeding, including hematachezia, hematemesis, melena, or hemoptysis. No black or tarry stools. Notes that he almost always requires transfusion post-chem; estimates has had at least 10 transfusions since undergoing chemotherapy. Denies chest pain/pressure or palpitations. No fever of chills. Denies N/V/D/abd pain. In the ED pt's vitals were significant for mildly soft BP and tachypnea up to 24. Labs were significant for H&H 6.9/20.4, platelets 77, sodium 131, lactic acid 2.6 with reapeat 1.1, and BNP 2681.5. CTA of chest negative for PE but showed right layering pleural effusion, trace left effusion, and minimal increase in pulmonary masses in RUL. BI LE u/s negative for DVT. Pt was treated in the ED with Zosyn, Lasix 20mg IV, and transfused 1 unit PRBCs. Pt is admitted to the hospital for treatment and evaluation of new onset CHF. Review of Systems 2 Review of Systems: Yes all other systems are reviewed and are negative [facility] Medical History Lung cancer COPD (chronic obstructive pulmonary disease) Pancreatic mass Lymphadenopathy Lung mass Nicotine dependence, cigarettes, uncomplicated SVT (supraventricular tachycardia) Edema Pressure ulcer Alcohol use disorder Cognitive disorder Rhabdomyolysis Hypertension Family History Father No problems noted. Mother Lung cancer Family/Other Lung cancer Throat cancer Surgical History History of colonoscopy History of lumbar laminectomy Social History Household Members: None Household Members Other:: pt lives alone Housing: Apartment Are you a primary student career development specialist to a significant other at home: No Do you presently have visiting nurse or other home services: No Alcohol intake: current Alcohol intake frequency: 3 or more drinks per day Alcohol type: beer Comment: camera not available Patient Tobacco Use Status: Current everyday Tobacco user Tobacco use type: Cigarette Cigarette Packs Per Day: 1 Years Smoked: (onset 16yo, 1-1.5ppd x 53yrs, 60+PYH) e-Cigarette/Vaping Use: Currently Using Second Hand Smoke Exposure: No Advance Directives Date on File: 12/14/22 service: No 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 identity: Male Cognitive needs: Yes (Cane) Hearing needs: No Vision needs: Yes (Glasses) Meds Allergies Allergy/AdvReac Type Severity Reaction Status Date / Time No Known Allergies Allergy Verified 08/27/25 10:10 Active Medications: Current Medications Amlodipine Besylate (Amlodipine Besylate 10 Mg Tablet) 10 mg PO DAILY BEATRIZ; Protocol Fluticasone/Vilanterol (Fluticasone/Vilanterol 100/25 Blst.W.Dev) 1 puff INHALE RDAILY BEATRIZ Folic Acid (Folic Acid 1 Mg Tablet) 1 mg PO DAILY BEATRIZ Ipratropium [place] (Ipratropium [place] Osorio 0.06 % 15 Ml [place]) 2 spray NOSTRIL-B TID PRN PRN Reason: allergies Home Medications ?Medication ?Instructions ?Recorded ?Confirmed ?Last Taken ?Type dexamethasone 4 mg tablet See Rx Instructions .Route . COMPLEX 08/27/25 08/27/25 Unknown History ipratropium bromide 42 mcg (0.06 2 spray intranasal TI D PRN 08/27/25 08/27/25 Unknown History %) nasal spray allergies Physical Exam 2 Vital Signs and Narrative: Vital Signs: Last Vital Signs Temp 97.9 F 08/27/25 17:13 Pulse 67 08/27/25 17:13 Resp 16 08/27/25 17:13 BP 136/64 08/27/25 17:13 Pulse Ox 98 08/27/25 14:21 O2 Del Method Room Air 08/27/25 14:21 BMI result Body Mass Index 26.4 General: AOx3, no acute distress Resp: Coarse breath sounds bilaterally CVS: S1, S2, RRR GI: +BS, NT, no distention Skin: Warm, dry Neuro: Cranial nerves II-XII grossly intact bilaterally. Motor grossly intact bilaterally Extremities: 1-2+ bilateral LE pitting edema. Areas of pitting edema on lateral aspect of bilateral thighs Psych: Appropriate affect Results Labs 08/29/25 06:12 08/29/25 06:12 Labs: Laboratory Results - last 24 hr 08/27/25 08/27/25 08/27/25 10:57 10:58 13:28 MCV 97.1 MCH 32.9 MCHC 33.8 RDW 24.1 H Plt Count 77 L D MPV Not Reportable Immature Gran % (Auto) 0.8 H Neut % (Auto) 81.9 H Lymph % (Auto) 15.4 L [place] % (Auto) 1.8 L Eos % (Auto) 0.1 Baso % (Auto) 0.0 Lymph # (Auto) 1.2 [place] # (Auto) 0.1 Eos # (Auto) 0.0 Baso # (Auto) 0.0 Abs Immat Gran (auto) 0.06 H Absolute Neuts (auto) 6.3 Absolute Nucleated RBC 0.030 H Nucleated RBC % (auto) 0.4 H Smear Tech's Comments VERIFIED PT 12.9 H INR 1.1 Anion Gap 14 Estim Creat Clear Calc 63.4 Estimated GFR 57 Random Glucose 88 Lactic Acid 2.6 H* Lactic Acid F/U @ 2Hr 1.1 Calcium 8.7 Magnesium 2.0 Total Bilirubin 0.4 AST 39 H ALT 12 Alkaline Phosphatase 131 H Troponin I High Sens 15.7 D NT-Pro-B Natriuret Pep 2681.5 H Total Protein 6.1 L Albumin 2.7 L COVID-19 (YE) Negative COVID-19 Clin Com See Note Influenza Type A (JULIA) Negative Influenza Type B (JULIA) Negative Influenza A & B Note See Note Blood Type A Positive Antibody Screen NEGATIVE Crossmatch See Detail Imaging Radiologist's Impressions: Impressions Venous Duplex 08/27/25 10:26 IMPRESSION: No acute deep venous thrombosis interrogated veins of the lower extremities. Negative for DVT. Electronically signed by: Trent Mota MD 08/27/2025 10:57 AM EST RP Chest CTA 08/27/25 13:44 IMPRESSION: 1. There is no evidence of pulmonary embolus. There is no evidence of acute aortic syndrome or aneurysm. 2. Minimal increase in the 2 dominant stellate pulmonary masses in the right upper lobe. 3. Small layering right pleural effusion. Trace left effusion. 4. Emphysema, stable. Saber-sheath trachea. 5. Upper abdominal abnormalities as discussed. Electronically signed by: Paolo Quesada MD 08/27/2025 02:21 PM EST RP Assessment and Plan (1) Acute on chronic blood loss anemia: Status: Acute (2) CHF exacerbation: Status: Acute Plan Pt is a 70-year-old male with a PMH significant for?COPD not on home O2, HTN, small-cell lung cancer currently on chemo follows with Dr. Tanner with last infusion 08/15, and recurrent anemia often requiring transfusions s/p chem who presents to the ED with?SOB, lightheadedness, and lower leg swelling. Pt is admitted to the hospital for treatment and evaluation of new onset CHF. New onset decompensated CHF Pt with SOB, JAVIER, LLE, elevated BNP, imaging with bilateral pleural effusions Treat with Lasix 20mg IV bid Pt without hx of CHF in the past Echocardiogram Follow mag lyndsey, I/O Daily weights, low-salt diet Cardiology consult Monitor on telemetry Acute on chronic blood loss anemia Secondary to recent chemo for NSC lung cancer S/P transfusion 1 unit PRBCs in the ED Pt reports 10+ similar transfusions in the past Monitor CBC Thrombocytopenia In the setting of above Monitor NSC lung cancer Last chemo on 08/[address] Tanner Heme/onc consult Hyponatremia, mild Monitor for now Acute lactic acidosis, resolved Secondary to CHF, not sepsis No indication to continue abx at this time HTN Continue amlodipine COPD Not in acute exacerbation Continue home inhalers DNR/DNI, verified with pt Attending:?Dr. Johnson DVT Prophylaxis: pneumatic compression Pt will require a hospitalization of at least two nights for treatment of?acute on chronic blood transfusion and new onset CHF. Pt will require treatment with IV Lasix and close monitoring of labs. Quality Stroke Does the patient have a stroke diagnosis?: No VTE Prior VTE?: No VTE Risk Level:: Medical - moderate - high VTE Device Contraindication: N/A - Device Ordered VTE Drug Contraindication: Treatment Not Indicated
--- NOTE | 2025-08-27 19:42 | PC.NURSE ---
provider notified pt is a daily smoker and drinks 2 beers per day
--- NOTE | 2025-08-27 20:13 | HO.NURTONUR ---
PT from home with complaint of sob and lower leg swelling, with the left more swollen than the right. PT denies any injuries or trauma to LE. Pt denies any cp, cough, sputum, fever. Pt has pmhx lung cancer with mets to liver last chemo 08/15. Upon arrival to the ED pt was noted to have 3+ pitting edema to BLE. H&H revealed 6.9 & 20.4, pt received 1 unit of RBCs. Pt has a 20G ultrasound guided IV in [facility] and has been medicated per dec. LABS: sodium- 131 BUN- 17 Lactic- 2.6 -> 1.1 BNP- 2681.5 Imaging: Venous Duplex 08/27/25 10:26 IMPRESSION: No acute deep venous thrombosis interrogated veins of the lower extremities. Negative for DVT. Chest CTA 08/27/25 13:44 IMPRESSION: 1. There is no evidence of pulmonary embolus. There is no evidence of acute aortic syndrome or aneurysm. 2. Minimal increase in the 2 dominant stellate pulmonary masses in the right upper lobe. 3. Small layering right pleural effusion. Trace left effusion. 4. Emphysema, stable. Saber-sheath trachea. 5. Upper abdominal abnormalities as discussed.
[2025-08-28] VITALS (9 sets, daily range): BP systolic 113–128; BP diastolic 57–67; PULSE 72–90; RESP 16–20; TEMP 36.1–37.3; O2SAT 92–99
--- NOTE | 2025-08-28 07:00 | CA_ITS ---
Transthoracic Echocardiogram Patient (Last, First, Middle): Hari Page J Gender: Male Date of : 1955 Age: 70 Procedure Date: 08/28/2025 Procedure Type: Transthoracic Echocardiogram Location: [facility] Height: 185.42 cm Weight: 89.36 kg BSA: 2.14 m2 Heart Rate: bpm BP: 119 / 59 mmHg Marker Machine: Referring MD: Sheri HOANG Symptoms: ?New onset CHF Study Quality: Adequate w Contrast ECG Rhythm: Sinus with extra beats Conclusions: - Normal left ventricular size and systolic function. There is mildly increased left ventricular wall thickness. The visually estimated ejection fraction is between 60-65%. There is no evidence of regional wall motion abnormalities. Diastolic function is normal for age. - Mildly increased right ventricular cavity size. There is normal right ventricular systolic function. - The left atrium is mildly dilated. - There is mild dilatation of the ascending aorta measuring 3.90 cm. Findings Procedure Information Contrast agent, definity, is being given per protocol without apparent complications. Left Ventricle Normal left ventricular size and systolic function. There is mildly increased left ventricular wall thickness. The visually estimated ejection fraction is between 60-65%. There is no evidence of regional wall motion abnormalities. Diastolic function is normal for age. Right Ventricle Mildly increased right ventricular cavity size. There is normal right ventricular systolic function. Atria The left atrium is mildly dilated. The right atrium is normal in size. Aortic Valve The aortic valve was not well visualized. There is no aortic valve stenosis. There is no aortic valve regurgitation. Mitral Valve Likely normal mitral valve structure and function. There is no mitral valve regurgitation. There is no mitral valve stenosis. Pulmonic Valve The pulmonic valve was not well visualized. Tricuspid Valve The tricuspid valve was not well visualized. Normal right atrial pressure. There is no evidence of pulmonary hypertension. Great Vessels There is mild dilatation of the ascending aorta measuring 3.90 cm. Venous The inferior vena cava is normal in size and collapses greater than 50% with inspiration. Pericardium/Pleural Prominent epicardial adipose tissue noted. There is no evidence of pericardial effusion. Prior Study Comparison Changes noted compared to prior study dated: 11/17/2022. RV mildly dilated, mild ascending aorta dilation 3.9 cm. Measurements 2D Linear Measurements IVSd: 1.16 0.6-0.9/0.6-1.0 cm LVIDd: 5.32 3.9-5.3/4.2-5.9 cm LVIDd Index: 2.49 2.4-3.2/2.2-3.1 cm/m2 LVIDs: 3.52 2.0-3.6 cm LVPWd: 1.03 0.7-1.1 cm Ao Root: 4.10 2.1-3.5 cm LA Diam: 3.90 2.7-3.8/3.0-4.0 cm LAIDs Index: 1.82 1.5-2.3 cm/m2 LV Mass: 283.92 67-162/88-224 g LV Mass Index: 132.67 43-95/49-115 g/m2 LVOT Diam: 2.50 3.0+(-)1.3 cm 2D Systolic Function EF 4C: 65.20 >55% EF 2C: 66.30 >55% EF BiP: 67.00 >55% Mitral Valve MV Pk E: 0.86 MV PK A: 0.88 MV Decel Time: 234.00 E/A: 1.00 E'Lateral: 12.30 E'Medial: 9.79 E/E' Med: 8.80 E/E' Lat: 7.00 PHT: 68.00 MVA PHT: 3.24 Decel [place]: 3.69 Aortic Valve AoV Pk Be: 1.48 AoV Mn Be: 0.90 AoV VTI: 0.31 AoV Pk Grad: 9.00 Aov Mn Grad: 4.00 IRMA Cont.VTI: 3.25 LVOT LVOT Pk Be: 1.03 LVOT Mn Be: 0.56 LVOT VTI: 0.20 LVOT Pk Grad: 4.00 LVOT Mn Grad: 2.00 LVOT Diam: 2.50 LVOT Area: 4.91 Diastolic Function MV Pk E: 0.86 MV Pk A: 0.88 E/A: 1.00 E'Medial: 9.79 E/E' Med: 8.80 E' Laterial: 12.30 E/E' Lat: 7.00 Right Ventricle TAPSE (mm): 35.00 TVS' Be: 14.00 Tricuspid Valve TR Pk Be: 2.40 TR Pk Grad: 23.00 RA Press: 3.00 RVSP: 26.00 Great Vessels Aorta Ao Root-2D: 4.10 2.0-3.7 cm Ao Asc: 3.90 2.1-3.4 cm Pulmonary Valve PV Pk Be: 0.95 Peak PV Grad: 4.00 Updated in Other Vendor System with Status of Final Jaron Mccarthy MD electronically signed on 08/31/2025 3:05:37 PM with status of Final
[2025-08-28 07:18] LABS: Hematocrit 22.9 % (42.0-52.0); Hemoglobin 8.2 g/dl (14.0-18.0); Mean Corpuscular HGB Conc 35.8 g/dl (31.0-36.0); Mean Corpuscular Hemoglobin 33.6 pg (27.0-33.0); Mean Corpuscular Volume 93.9 fL (80.0-98.0); NRBC Abs Auto 0.000 X10*3/uL (0.0-0.012); NRBC Pct Auto 0.0 /100WBC (0.0-0.2); PLT CLUMP 1; Red Blood Count 2.44 X10*6/uL (4.60-5.80)
[2025-08-28 07:35] LABS: Anion Gap 13 (12-20); Blood Urea Nitrogen 14 mg/dL (9-16); Calcium 8.0 mg/dL (8.4-10.2); Carbon Dioxide 27 mmol/L (22-29); Chloride 100 mmol/L (96-108); Creatinine Clr Calc Pharmacy 85.9; Estimated Glomerular Filt Rate > 60; Magnesium 1.8 mg/dL (1.6-2.6); Potassium 3.2 mmol/L (3.3-5.1); Sodium 137 mmol/L (135-145)
[2025-08-28] MEDS: Fluticasone/Vilanterol 100/25 BLST.W.DEV 1 PUFF INHALE (08:13)
[2025-08-28] MEDS: Furosemide 20 MG/2 ML VIAL IVPUSH ×2 (08:52→17:15)
[2025-08-28 08:54] LABS: Platelet Count 61 X10*3/uL (160-400); White Blood Count 7.7 X10*3/uL (4.8-10.8)
[2025-08-28] MEDS: Flu Vacc TS2025-26(6mo up)/PF 0.5 ML SYRINGE IM (09:34)
[2025-08-28] MEDS: 0.9 % Sodium Chloride Flush 3 ML SYRINGE IVFLUSH ×2 (09:34→15:53)
[2025-08-28] MEDS: Potassium Chloride ER 20 MEQ TAB.ER.PRT PO (09:34)
--- NOTE | 2025-08-28 10:59 | MHC.CM.PN ---
Addendum entered by Ayesha Hunter 08/28/25 12:57: Correction, pt. lives alone, and his HCP, Rosalie is his sister, he is not . Original Note: IMM 08/28/25, Pt. lives with his , PCP confirmed: Dawood Tariq, ORTHOPEDIC DESIGNER and HCP is in chart and confirmed: His Rosalie. Pt. does not use home health services, he uses a cane. He will use [facility] for transport home at [place], DCP; home, self care, to follow for DC needs.
[2025-08-28 12:50] LABS: Appearance Urine Clear; Glucose Urine UA Negative (Negative); PH 6.0 (5.0-9.0); Specific Gravity - Urine 1.015 (1.005-1.025)
--- NOTE | 2025-08-28 14:42 | P.CONCA_ITS ---
History of Present Illness History of Present Illness Date of Service: 08/28/25 Requesting physician: Sheri Coelho Chief complaint: CHF Narrative: Pleasant 70-year-old gentleman with background history of COPD, hypertension, small cell lung cancer currently on chemotherapy and anemia presenting with shortness of breath lightheadedness and lower extremity edema. He reports no bleeding. He previously required transfusions due to anemia secondary to chemotherapy. Chest CTA showed small layering effusion in the right side and trace pleural effusion in the left side. His BNP was elevated at 2 681. He was given IV antibiotics and Lasix 20 mg. IV. He will also transfuse 1 units of packed red blood cells. He is saying since he received transfusion is feeling better. He is denying any orthopnea or PND. No chest discomfort. Overall fairly stable at this point. [facility] Past Medical History Medical History Lung cancer COPD (chronic obstructive pulmonary disease) Pancreatic mass Lymphadenopathy Lung mass Nicotine dependence, cigarettes, uncomplicated SVT (supraventricular tachycardia) Edema Pressure ulcer Alcohol use disorder Cognitive disorder Rhabdomyolysis Hypertension Family History Family History Father No problems noted. Mother Lung cancer Family/Other Lung cancer Throat cancer Surgical History Surgical History History of colonoscopy History of lumbar laminectomy Social History Social History Household Members: None Household Members Other:: pt lives alone Housing: Apartment Are you a primary inspector health care facilities to a significant other at home: No Do you presently have visiting nurse or other home services: No Alcohol intake: current Alcohol intake frequency: 3 or more drinks per day Alcohol type: beer Comment: camera not available Patient Tobacco Use Status: Current everyday Tobacco user Tobacco use type: Cigarette Cigarette Packs Per Day: 1 Cigarettes Per Day: 20.0 Years Smoked: (onset 16yo, 1-1.5ppd x 53yrs, 60+PYH) e-Cigarette/Vaping Use: Currently Using Second Hand Smoke Exposure: No Advance Directives Date on File: 12/14/22 service: No 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 identity: Male Cognitive needs: Yes (Cane) Hearing needs: No Vision needs: Yes (Glasses) Meds Allergies Allergy/AdvReac Type Severity Reaction Status Date / Time No Known Allergies Allergy Verified 08/27/25 10:10 Active Medications: Current Medications Acetaminophen (Acetaminophen 325 Mg Tablet) 650 mg PO Q6H PRN PRN Reason: Pain, Mild 1-3,fever,headache Amlodipine Besylate (Amlodipine Besylate 10 Mg Tablet) 10 mg PO DAILY [facility]; Protocol Last Admin: 08/28/25 08:52 Dose: 10 mg Calcium Carbonate (Calcium Carbonate 750 Mg Tab.Chew) 750 mg PO Q4H PRN PRN Reason: Heartburn Fluticasone/Vilanterol (Fluticasone/Vilanterol 100/25 Blst.W.Dev) 1 puff INHALE RDAILY [facility] Last Admin: 08/28/25 08:13 Dose: 1 puff Folic Acid (Folic Acid 1 Mg Tablet) 1 mg PO DAILY [facility] Last Admin: 08/28/25 08:52 Dose: 1 mg Furosemide (Furosemide 20 Mg/2 Ml Vial) 20 mg IVPUSH BID@0900,1800 [facility]; Protocol Last Admin: 08/28/25 08:52 Dose: 20 mg Ipratropium [place] (Ipratropium [place] Osorio 0.06 % 15 Ml [place]) 2 spray NOSTRIL-B TID PRN PRN Reason: allergies Magnesium Hydroxide (Milk Of Magnesia 30 Ml Oral.Susp) 30 ml PO DAILY PRN PRN Reason: Constipation Melatonin (Melatonin 3 Mg Tablet) 6 mg PO BEDTIME PRN PRN Reason: Insomnia Nicotine (Nicotine 21 Mg Patch.Td24) 21 mg TRANSDERMA DAILY PRN PRN Reason: Nicotine Cravings Ondansetron HCl (Ondansetron Hcl 4 Mg/2 Ml Vial) 4 mg IVPUSH Q8H PRN PRN Reason: Nausea and Vomiting Sodium Chloride (0.9 % Sodium Chloride Flush 3 Ml Syringe) 3 ml IVFLUSH QSHIFT [facility] Last Admin: 08/28/25 09:34 Dose: 3 ml Home Medications ?Medication ?Instructions ?Recorded ?Confirmed ?Last Taken ?Type dexamethasone 4 mg tablet See Rx Instructions .Route . COMPLEX 08/27/25 08/27/25 Unknown History ipratropium bromide 42 mcg (0.06 2 spray intranasal TI D PRN 08/27/25 08/27/25 Unknown History %) nasal spray allergies Physical Exam 2 Vital Signs: Vital Signs: Last Vital Signs Temp 97.8 F 08/28/25 11:06 Pulse 74 08/28/25 11:06 Resp 18 08/28/25 11:06 BP 127/62 08/28/25 11:06 Pulse Ox 94 08/28/25 11:06 O2 Del Method Room Air 08/28/25 11:06 BMI result Body Mass Index 26.1 GENERAL APPEARANCE: in no acute distress, pleasant. NECK: no carotid bruit, no jugular venous distention. SKIN: no suspicious lesions, warm and dry. HEART: no murmurs, regular rate and rhythm. LUNGS: clear to auscultation bilaterally. ABDOMEN: soft, nontender. EXTREMITIES: no edema. PERIPHERAL PULSES: equal. NEUROLOGIC: No gross deficits, AAO X 3 Objective Labs and Meds 08/28/25 06:57 08/28/25 06:57 Lab results: Laboratory Results - last 24 hr 08/27/25 08/27/25 08/28/25 10:57 10:58 06:57 WBC 7.7 RBC 2.44 L Hgb 8.2 L Hct 22.9 L MCV 93.9 MCH 33.6 H MCHC 35.8 RDW 22.6 H Plt Count 61 L MPV 11.2 Absolute Nucleated RBC 0.000 Nucleated RBC % (auto) 0.0 Smear Path Review SEE NOTE Sodium 137 Potassium 3.2 L Chloride 100 Carbon Dioxide 27 Anion Gap 13 BUN 14 Creatinine 0.93 Estim Creat Clear Calc 85.9 Estimated GFR > 60 Random Glucose 77 Calcium 8.0 L D Magnesium 1.8 Urine Color Urine Appearance Urine pH Ur Specific [place] Urine Protein Urine Glucose (UA) Urine Ketones Urine Blood Urine Nitrite Ur Leukocyte Esterase Crossmatch See Detail 08/28/25 11:10 WBC RBC Hgb Hct MCV MCH MCHC RDW Plt Count MPV Absolute Nucleated RBC Nucleated RBC % (auto) Smear Path Review Sodium Potassium Chloride Carbon Dioxide Anion Gap BUN Creatinine Estim Creat Clear Calc Estimated GFR Random Glucose Calcium Magnesium Urine Color Yellow Urine Appearance Clear Urine pH 6.0 Ur Specific [place] 1.015 Urine Protein Negative Urine Glucose (UA) Negative Urine Ketones Negative Urine Blood Negative Urine Nitrite Negative Ur Leukocyte Esterase Negative Crossmatch Assessment and Plan (1) Acute on chronic blood loss anemia: Status: Acute (2) Acute dyspnea: Status: Acute Plan [age] year gentleman presenting with anemia on background of small-cell lung cancer currently on chemotherapy. He was complaining of dyspnea and dizziness. He was given a unit of blood along with Lasix and has been feeling better since then. Clinically does not appear to be volume overloaded. Monitor H&H closely and transfuse as needed. He should monitor weight daily at home and if he gains more than 2 lb then he can take 20 mg p.o. Lasix. Would not start him on daily Lasix currently. Thank you for allowing me to participate in the care of your patient. Please feel free to contact me if you have any questions. Procedures Date of Service Date of Service: 08/28/25
--- NOTE | 2025-08-28 16:54 | PM.HEMONCCN ---
Subjective - Subjective Chief complaint: Consult for: [id number]-[id number]-[id number] lung carcinoma. Patient: known to practice within the last 3 years Consult date: 08/28/25 Requesting Physician: Meliton. Primary Care Provider: NELY Rich Family Provider: Alcides Medical Summary: Diagnosis: Poorly-differentiated lung cancer with liver metastases. Treatment: Carboplatin/Alimta/Pembrolizumab. Had cycle 1 on 12/07/24. Had cycle 2 on 12/27/24. Had cycle 3 on 01/18/25. Had cycle 4 on 02/08/25. Had cycle 5 on 03/01/25. Had cycle 6 on 03/21/25. Had cycle 7 on 04/11. Had cycle 8 on 05/02. Cycle 9 on 05/23. Cycle 10 on 06/13. Had cycle 11 on 07/04. [employer] Certified Internetwork Expert Utilized?: No - [place]i Speaking HPI - Consult Narrative Narrative: Hari Page is a 70 year old gentleman, with a PMH significant for?COPD not on home O2, Non small-cell lung cancer currently on chemo. Last infusion 08/15, and recurrent anemia often requiring transfusions. He presented to the ED with?SOB, lightheadedness, and lower leg swelling. Leg swelling and pain, in thighs, ongoing for the past couple of weeks; SOB, JAVIER, and difficulty breathing x1 week; dizziness x2-3 days. Denies any signs of bleeding, including hematachezia, hematemesis, melena, or hemoptysis. No black or tarry stools. Notes that he requires blood transfusion post-chem; He has had at least 10 transfusions since undergoing chemotherapy. Denies chest pain/pressure or palpitations. No fever of chills. Denies N/V/D/abd pain. In the ED pt's vitals were significant for mildly soft BP and tachypnea up to 24. DATA BASE: H&H 6.9/20.4, platelets 77, sodium 131, lactic acid 2.6 with reapeat 1.1, and BNP 2681.5. CTA of chest negative for PE but showed right layering pleural effusion, trace left effusion, and minimal increase in pulmonary masses in RUL. BI LE u/s negative for DVT. He was treated in the ED with Zosyn, Lasix 20mg IV, and transfused 1 unit PRBCs. Medical History: Hypertension Surgical History:) History of lumbar laminectomy Family History:) Father No problems noted. Mother Lung cancer Family/Other: A brother of Lung cancer Throat cancer Social History:) Household Members: None Housing: Apartment Unable to assess alcohol history related to: Unable to respond Alcohol intake: current Alcohol intake frequency: 3 or more drinks per day Alcohol type: beer Patient Tobacco Use Status: Current everyday Tobacco user Tobacco use type: Cigarette Cigarette Packs Per Day: 1 Cigarettes Per Day: 20 HTN [facility] Medical History: Medical History (Last Reviewed 08/27/25 @ 10:51 by Fatemeh Lloyd DO) Alcohol use disorder Cognitive disorder COPD (chronic obstructive pulmonary disease) Edema Hypertension Lung cancer Lung mass Lymphadenopathy Nicotine dependence, cigarettes, uncomplicated Pancreatic mass Pressure ulcer Rhabdomyolysis SVT (supraventricular tachycardia) Family History: Family History (Last Reviewed 08/01/25 @ 08:06 by NELY Rich) Father No problems noted. Mother Lung cancer Family/Other Lung cancer Throat cancer Surgical History: Surgical History (Last Reviewed 08/27/25 @ 10:51 by Fatemeh Lloyd DO) History of colonoscopy History of lumbar laminectomy Social History: Social History (Last Reviewed 08/27/25 @ 10:51 by Fatemeh Lloyd DO) Living Situation History: Household Members: None Household Members Other:: pt lives alone Housing: Apartment Are you a primary long term acute care registered nurse to a significant other at home: No Do you presently have visiting nurse or other home services: No Tobacco History: Patient Tobacco Use Status: Current everyday Tobacco Tobacco use type: Cigarette Cigarette Packs Per Day: 1 Years Smoked: (onset 16yo, 1-1.5ppd x 53yrs, 60+PYH) e-Cigarette/Vaping Use: Currently Using Second Hand Smoke Exposure: No Advance Directives: Advance Directives Date on File: 12/14/22 Occupation Assessmet: service: No 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 Sex/Gender Assessment: Gender identity: Male Home Medications and Allergies Current Medications: Current Medications Acetaminophen (Acetaminophen 325 Mg Tablet) 650 mg PO Q6H PRN PRN Reason: Pain, Mild 1-3,fever,headache Amlodipine Besylate (Amlodipine Besylate 10 Mg Tablet) 10 mg PO DAILY [facility]; Protocol Last Admin: 08/28/25 08:52 Dose: 10 mg Calcium Carbonate (Calcium Carbonate 750 Mg Tab.Chew) 750 mg PO Q4H PRN PRN Reason: Heartburn Fluticasone/Vilanterol (Fluticasone/Vilanterol 100/25 Blst.W.Dev) 1 puff INHALE RDAILY [facility] Last Admin: 08/28/25 08:13 Dose: 1 puff Folic Acid (Folic Acid 1 Mg Tablet) 1 mg PO DAILY [facility] Last Admin: 08/28/25 08:52 Dose: 1 mg Furosemide (Furosemide 20 Mg/2 Ml Vial) 20 mg IVPUSH BID@0900,1800 [facility]; Protocol Last Admin: 08/28/25 08:52 Dose: 20 mg Ipratropium [place] (Ipratropium [place] Osorio 0.06 % 15 Ml [place]) 2 spray NOSTRIL-B TID PRN PRN Reason: allergies Magnesium Hydroxide (Milk Of Magnesia 30 Ml Oral.Susp) 30 ml PO DAILY PRN PRN Reason: Constipation Melatonin (Melatonin 3 Mg Tablet) 6 mg PO BEDTIME PRN PRN Reason: Insomnia Nicotine (Nicotine 21 Mg Patch.Td24) 21 mg TRANSDERMA DAILY PRN PRN Reason: Nicotine Cravings Ondansetron HCl (Ondansetron Hcl 4 Mg/2 Ml Vial) 4 mg IVPUSH Q8H PRN PRN Reason: Nausea and Vomiting Sodium Chloride (0.9 % Sodium Chloride Flush 3 Ml Syringe) 3 ml IVFLUSH QSHIFT [facility] Last Admin: 08/28/25 15:53 Dose: 3 ml Home Medications ?Medication ?Instructions ?Recorded ?Confirmed ?Type dexamethasone 4 mg tablet See Rx Instructions .Route .COMPLEX 08/27/25 08/27/25 History ipratropium bromide 42 mcg (0.06 2 spray intranasal TID PRN 08/27/25 08/27/25 History %) nasal spray allergies Allergies Allergy/AdvReac Type Severity Reaction Status Date / Time No Known Allergies Allergy Verified 08/27/25 10:10 Physical Exam Vital signs: Vital Signs Temp 98.8 F 08/28/25 16:00 Pulse 90 08/28/25 16:00 Resp 18 08/28/25 16:00 BP 126/67 08/28/25 16:00 Pulse Ox 92 08/28/25 16:00 O2 Del Method Room Air 08/28/25 16:00 Intake & Output 08/27/25 08/28/25 08/28/25 18:59 06:59 18:59 Intake Total 400 / 400 600 / 600 Output Total 150 / 150 800 / 800 Balance 400 / 250 -150 / 250 -200 / -200 Urine Output (Average ml/kg/hr) 0.14 0.74 Intake: Intake, Oral Amount 600 / 600 Intake (Blood Product) Amount 350 / 350 Red Blood Cells (E0336) Unit 350 / 350 [id number] Intake, IV Amount 50 / 50 Piperacillin Sodium/Tazobactam 50 / 50 3.375 gm In 0.9 % Sodium Chloride 50 ml @ 100 mls/hr IV ONCE ONE Rx#:[id number] Output: Output, Urine Amount 150 / 150 800 / 800 Other: Meal Refused No NPO No Breakfast % Eaten 75% Lunch % Eaten 100% Dinner % Eaten 75% Eating (Feeding) Ability Set Up only Number of Unmeasured Voids 1 Urine Urinal Urinal Urine Color Yellow Yellow Last Bowel Movement 08/26/25 Weight 90.718 kg 89.6 kg Weight 89.6 kg Hem/Onc Consult Result - Labs CBC & Chem 7: 08/28/25 06:57 08/28/25 06:57 Labs: Short CBC 08/28/25 Range/Units 06:57 WBC 7.7 (4.8-10.8) X10*3/uL Hgb 8.2 L (14.0-18.0) g/dl Hct 22.9 L (42.0-52.0) % Plt Count 61 L (160-400) X10*3/uL BMP 08/28/25 06:57 Sodium 137 Potassium 3.2 L Chloride 100 Carbon Dioxide 27 BUN 14 Creatinine 0.93 Calcium 8.0 L D Urine 08/28/25 Range/Units 11:10 Urine Color Yellow Urine Appearance Clear Urine pH 6.0 (5.0-9.0) Ur Specific [place] 1.015 (1.005-1.025) Urine Protein Negative (Neg-Trace) mg/dL Urine Glucose (UA) Negative (Negative) mg/dL Assessment and Plan Patient Active problem list reviewed?: Yes (1) Non-small cell lung cancer Status: Acute Assessment and plan: This is an unfortunate 70 year-old gentleman recently diagnosed with [id number]-nhiw lung carcinoma with liver metastases. He underwent low-dose lung cancer screening on 08/10/2024. It revealed: 1. New cluster of large masses in the right upper lobe with associated mediastinal adenopathy. Findings are highly suspicious for malignancy. 2. New ill-defined mass in the region of the head of the pancreas. ASSESSMENT: 1. Lung-RADS Category 4B: Suspicious findings. N/A 10/10/2024. PET scan was done which revealed: Multiple right upper lobe masses, especially 2 masses with hypermetabolic activity suggestive of primary lesion. Tracheal narrowing [id number] likely from right pretracheal lymph nodes or tracheomalacia. There is postobstructive atelectasis posterior segment right upper lobe. There are metastatic FDG active large lymph nodes in right suprahilar, right pretracheal and subcarinal space. Metastatic disease involving the liver and large upper retroperitoneal bulky lymphadenopathy. No abnormal FDG activity seen in osseous structures. Ultrasound of the abdomen revealed: The liver mass noted on outside PET/CT scan is not identified by ultrasound. The patient will be scheduled for a targeted liver biopsy under CT guidance. 10/29/2024, biopsy of the right lobe liver lesion: Poorly-differentiated carcinoma. Immunostains: Only CK7 reactive. Neuroendocrine markers are negative. 11/14/2024. Right upper lobe lung transbronchial biopsy: Poorly-differentiated carcinoma. Immunostains are pending. Molecular testing is pending. Right upper lobe washings: Few degenerated atypical epithelioid cells. Right upper lobe lung brushings: Poorly-differentiated carcinoma. Lymph node, subcarinal, FNA: Positive for poorly-differentiated carcinoma. Lymph node for, FNA: Positive for poorly-differentiated carcinoma. The plan has been devised to treat him with chemo/immunotherapy. Will treat him with carboplatin, Alimta and pembrolizumab. He received B12 injection on 12/03/24 and is taking PO Folic acid. He recieved cycle 12 of Alimta, Pembrolizumab, on 08/15. He is now admitted with shortness of breath, lightheadedness, and lower leg swelling. Concern is for new onset decompensated CHF. Imaging with bilateral pleural effusions He is being treated with Lasix 20mg IV bid. Daily weights, low-salt diet. Intake and output. Being monitored on telemetry. In addition he has recurrent anemia often requiring transfusions s/p chemo for NSC lung cancer. Thrombocytopenia: also related to chemotherapy. PLAN: Echocardiogram. Seen by Cardiology. Did not feel he is volume overloaded. To give diuretic based upon weight gain. Follow lyndsey and . He was transfused with 1 unit PRBC in the ER. Will monitor CBC. Transfuse platelets if drop to less than 10 or for bleeding. He is feeling a bit better today. Hopefully he will go home tomorrow. Appointment in Oncology is next . Thank you for the consult, Will follow along with you, CC: - Time Spent With Patient Time Spent with Patient (in minutes): 30
--- NOTE | 2025-08-28 21:34 | HO.PM.IMPN ---
Subjective Subjective Date of Service: 08/28/25 Interval History: Feeling better overall Breathing better, leg pain improved No acute events overnight H&H adequately improved post transfusion Review of Systems Review of Systems: Yes all other systems are reviewed and are negative Physical Exam Exam: Exam: General: AOx3, no acute distress Resp: Coarse breath sounds bilaterally CVS: S1, S2, RRR GI: +BS, NT, no distention Skin: Warm, dry Neuro: Cranial nerves II-XII grossly intact bilaterally. Motor grossly intact bilaterally Extremities: Trace bilateral LE pitting edema, improved from yesterday. Small area of pitting edema on lateral aspect of right thigh Psych: Appropriate affect Vital Signs: Vital Signs: Last Vital Signs Temp 97.9 F 08/28/25 19:23 Pulse 89 08/28/25 19:23 Resp 20 08/28/25 19:23 BP 128/67 08/28/25 19:23 Pulse Ox 93 08/28/25 19:23 O2 Del Method Room Air 08/28/25 19:23 BMI result Body Mass Index 26.1 Objective Data Active Medications Acetaminophen (Acetaminophen 325 Mg Tablet) 650 mg PO Q6H PRN PRN Reason: Pain, Mild 1-3,fever,headache Amlodipine Besylate (Amlodipine Besylate 10 Mg Tablet) 10 mg PO DAILY [facility]; Protocol Last Admin: 08/28/25 08:52 Dose: 10 mg Documented By: KYLIE Calcium Carbonate (Calcium Carbonate 750 Mg Tab.Chew) 750 mg PO Q4H PRN PRN Reason: Heartburn Fluticasone/Vilanterol (Fluticasone/Vilanterol 100/25 Blst.W.Dev) 1 puff INHALE RDAILY [facility] Last Admin: 08/28/25 08:13 Dose: 1 puff Documented By: YVETTE Folic Acid (Folic Acid 1 Mg Tablet) 1 mg PO DAILY [facility] Last Admin: 08/28/25 08:52 Dose: 1 mg Documented By: KYLIE Furosemide (Furosemide 20 Mg/2 Ml Vial) 20 mg IVPUSH BID@0900,1800 [facility]; Protocol Last Admin: 08/28/25 17:15 Dose: 20 mg Documented By: KYLIE Ipratropium [place] (Ipratropium [place] Osorio 0.06 % 15 Ml [place]) 2 spray NOSTRIL-B TID PRN PRN Reason: allergies Magnesium Hydroxide (Milk Of Magnesia 30 Ml Oral.Susp) 30 ml PO DAILY PRN PRN Reason: Constipation Melatonin (Melatonin 3 Mg Tablet) 6 mg PO BEDTIME PRN PRN Reason: Insomnia Nicotine (Nicotine 21 Mg Patch.Td24) 21 mg TRANSDERMA DAILY PRN PRN Reason: Nicotine Cravings Ondansetron HCl (Ondansetron Hcl 4 Mg/2 Ml Vial) 4 mg IVPUSH Q8H PRN PRN Reason: Nausea and Vomiting Sodium Chloride (0.9 % Sodium Chloride Flush 3 Ml Syringe) 3 ml IVFLUSH QSHIFT [facility] Last Admin: 08/28/25 15:53 Dose: 3 ml Documented By: KYLIE Labs 08/28/25 06:57 08/28/25 06:57 Labs: Laboratory Results - last 24 hr 08/27/25 08/28/25 08/28/25 10:58 06:57 11:10 MCV 93.9 MCH 33.6 H MCHC 35.8 RDW 22.6 H Plt Count 61 L MPV 11.2 Absolute Nucleated RBC 0.000 Nucleated RBC % (auto) 0.0 Smear Path Review SEE NOTE Anion Gap 13 Estim Creat Clear Calc 85.9 Estimated GFR > 60 Random Glucose 77 Calcium 8.0 L D Magnesium 1.8 Urine Color Yellow Urine Appearance Clear Urine pH 6.0 Ur Specific [place] 1.015 Urine Protein Negative Urine Glucose (UA) Negative Urine Ketones Negative Urine Blood Negative Urine Nitrite Negative Ur Leukocyte Esterase Negative Microbiology Microbiology Results: Microbiology 08/27/25 10:57 Blood Culture - Preliminary Blood - Venous No growth after 24 hours. 08/27/25 10:57 Blood Culture - Preliminary Blood - Venous No growth after 24 hours. Assessment and Plan (1) CHF exacerbation: Status: Acute (2) Acute on chronic blood loss anemia: Status: Acute Plan Pt is a 70-year-old male with a PMH significant for?COPD not on home O2, HTN, small-cell lung cancer currently on chemo follows with Dr. Tanner with last infusion 08/15, and recurrent anemia often requiring transfusions s/p chem who presents to the ED with?SOB, lightheadedness, and lower leg swelling. Pt is admitted to the hospital for treatment and evaluation of new onset CHF. Acute on chronic blood loss anemia Secondary to recent chemo for NSC lung cancer S/P transfusion 1 unit PRBCs in the ED Pt reports 10+ similar transfusions in the past H&H responded well to transfusion, improved today Monitor CBC New onset decompensated CHF Treated with Lasix 20mg IV bid Pt without hx of CHF in the past Echocardiogram taken, pending read Follow mag lyndsey, I/O Daily weights, low-salt diet Cardiology consulted, think secondary to anemia; can be discharged on Lasix 20mg p.o. prn Monitor on telemetry NSC lung cancer Last chemo on 08/[address] Tanner Heme/onc consult Thrombocytopenia In the setting of above Transfuse if <10 Monitor Hyponatremia, resolved Monitor for now Acute lactic acidosis, resolved Secondary to CHF, not sepsis No indication to continue abx at this time HTN Continue amlodipine COPD Not in acute exacerbation Continue home inhalers DNR/DNI, verified with pt DVT Prophylaxis: pneumatic compression Pt will require continued hospitalization for treatment of?acute on chronic blood transfusion and subsequent CHF with diuresing and close monitoring of labs. Quality Stroke Does the patient have a stroke diagnosis?: No VTE Prior VTE?: No VTE Risk Level:: Medical - moderate - high VTE Device Contraindication: N/A - Device Ordered VTE Drug Contraindication: Treatment Not Indicated
[2025-08-29] VITALS (7 sets, daily range): BP systolic 110–146; BP diastolic 55–62; PULSE 50–90; RESP 18; TEMP 36.4–36.6; O2SAT 86–98
[2025-08-29 07:30] LABS: Hematocrit 23.0 % (42.0-52.0); Hemoglobin 7.7 g/dl (14.0-18.0); Mean Corpuscular HGB Conc 33.5 g/dl (31.0-36.0); Mean Corpuscular Hemoglobin 33.0 pg (27.0-33.0); Mean Corpuscular Volume 98.7 fL (80.0-98.0); NRBC Abs Auto 0.000 X10*3/uL (0.0-0.012); NRBC Pct Auto 0.0 /100WBC (0.0-0.2); Red Blood Count 2.33 X10*6/uL (4.60-5.80); White Blood Count 8.7 X10*3/uL (4.8-10.8)
[2025-08-29 07:31] LABS: Platelet Count 97 X10*3/uL (160-400)
[2025-08-29 07:39] LABS: Blood Urea Nitrogen 16 mg/dL (9-16); Calcium 8.3 mg/dL (8.4-10.2); Creatinine Clr Calc Pharmacy 79.1; Estimated Glomerular Filt Rate > 60
[2025-08-29 07:46] LABS: Anion Gap 11 (12-20); Carbon Dioxide 31 mmol/L (22-29); Chloride 101 mmol/L (96-108); Potassium 4.2 mmol/L (3.3-5.1); Sodium 139 mmol/L (135-145)
[2025-08-29] MEDS: Fluticasone/Vilanterol 100/25 BLST.W.DEV 1 PUFF INHALE (08:00)
[2025-08-29 08:28] LABS: NT Pro B Type Natriuretic Pept 1894.4 pg/mL (<300)
[2025-08-29] MEDS: Furosemide 20 MG/2 ML VIAL IVPUSH (09:22)
[2025-08-29] MEDS: 0.9 % Sodium Chloride Flush 3 ML SYRINGE IVFLUSH (09:22)
--- NOTE | 2025-08-29 14:12 | MHC.CM.PN ---
Addendum entered by Ayesha Hunter 08/29/25 14:29: [facility] will provide home care Original Note: CM met with pt. to discuss DCP, PT rec. STR, pt. is on chemo txs every 2 weeks and he said that he has a lot of doctor appts and he really wants to go home and he feels that he will fine. Provider aware, DCP: home via [facility] shuttle, with [facility] services (awaiting response to see which [facility]).
--- NOTE | 2025-08-29 17:28 | P.DS_ITS ---
DS: Providers Provider Date of Service: 08/29/25 Date of admission: 08/27/25 15:01 Date of discharge: 08/29/25 Primary care physician: NELY Rich Consults: 08/27/25 18:14 Consult to Hematology / Oncology Routine Consulting Provider: [facility] Oncology/Hematology Reason for consultation: Anemia, CHF; active chemo, follows with Dr. Tanner 08/27/25 18:15 Consult to Cardiology Routine Consulting Provider: [facility] Reason for consultation: New onset CHF DS: Diagnosis Discharge Diagnosis (1) Acute on chronic blood loss anemia: Status: Acute (2) CHF exacerbation: Status: Acute DS: Summary Hospital Course Hospital Course: From admission HPI: Date of Service: 08/27/25 Attending physician on admission: Alis Johnson Chief Complaint: SOB Pt is a 70-year-old male with a PMH significant for?COPD not on home O2, HTN, small-cell lung cancer currently on chemo follows with Dr. Tanner with last infusion 08/15, and recurrent anemia often requiring transfusions s/p chem who presents to the ED with?SOB, lightheadedness, and lower leg swelling. Symptom onset has varied: leg swelling and pain, especially in thighs, ongoing for the past couple of weeks; SOB, JAVIER, and difficulty breathing x1 week; and lightheadedness x2-3 days. Denies any signs of bleeding, including hematachezia, hematemesis, melena, or hemoptysis. No black or tarry stools. Notes that he almost always requires transfusion post-chem; estimates has had at least 10 transfusions since undergoing chemotherapy. Denies chest pain/pressure or palpitations. No fever of chills. Denies N/V/D/abd pain. In the ED pt's vitals were significant for mildly soft BP and tachypnea up to 24. Labs were significant for H&H 6.9/20.4, platelets 77, sodium 131, lactic acid 2.6 with reapeat 1.1, and BNP 2681.5. CTA of chest negative for PE but showed right layering pleural effusion, trace left effusion, and minimal increase in pulmonary masses in RUL. BI LE u/s negative for DVT. Pt was treated in the ED with Zosyn, Lasix 20mg IV, and transfused 1 unit PRBCs. Pt is admitted to the hospital for treatment and evaluation of new onset CHF. Hospital course Pt was admitted to the hospital for acute on chronic anemia as well as elevated BNP and lower leg edema concerning for new onset CHF. Anemia was likely secondary to chemotherapy, as you have reported similar occurrences in the past, and that you have experienced upwards of 10 transfusions post chemo sessions. You were transfused 1 unit PRBCs in the ED and your H&H responded appropriately and was stable during hospital stay. You were also noted to have elevated BNP and bilateral lower extremity pitting edema. You were seen and evaluated by Cardiology and underwent an echocardiogram; Cardiology thought symptoms secondary to anemia and not congestive heart failure, and pt was not started on jail diuretics or heart failure medications. Pt was seen and evaluated by Physical therapy who recommended short-term rehab for strength and conditioning, but pt refused and instead elected to go home with services. Pt should monitor his weights daily and will be prescribed Lasix 20 mg p.o. p.r.n. Pt should follow up with his PCP in 1 week's time for routine post hospitalization visit, as well as with Oncology as previously arranged. You should continue all of his other medications. Time Attestation Discharge Coordination Time (in mins): 35 Quality: Safe Use of Opioids Does Pt have an Active Cancer Diagnosis on the Problem List?: No Quality: Stroke Does the patient have a stroke diagnosis?: No Physical Exam Exam: Exam: General: AOx3, no acute distress Resp: Coarse breath sounds bilaterally CVS: S1, S2, RRR GI: +BS, NT, no distention Skin: Warm, dry Neuro: Cranial nerves II-XII grossly intact bilaterally. Motor grossly intact bilaterally Extremities: Trace bilateral LE pitting edema. Areas of pitting edema on bilateral lateral aspects of thighs resolved Psych: Appropriate affect Vital Signs: Vital Signs: Last Vital Signs Temp 97.8 F 08/29/25 11:15 Pulse 56 08/29/25 11:15 Resp 18 08/29/25 11:15 BP 118/55 L 08/29/25 11:15 Pulse Ox 86 L 08/29/25 12:10 O2 Del Method Room Air 08/29/25 11:15 BMI result Body Mass Index 26.1 DS: Data Data Completed and Pending Completed studies during hospitalization [Text1]: Procedures Detoxification Services for Substance Abuse Treatment (10/18/22) Labs on day of discharge: Laboratory Results - last 24 hr 08/29/25 06:12 WBC 8.7 RBC 2.33 L Hgb 7.7 L Hct 23.0 L MCV 98.7 H MCH 33.0 MCHC 33.5 RDW 23.2 H Plt Count 97 L D MPV 10.7 Absolute Nucleated RBC 0.000 Nucleated RBC % (auto) 0.0 Sodium 139 Potassium 4.2 D Chloride 101 Carbon Dioxide 31 H Anion Gap 11 L BUN 16 Creatinine 1.01 Estim Creat Clear Calc 79.1 Estimated GFR > 60 Random Glucose 91 Calcium 8.3 L NT-Pro-B Natriuret Pep 1894.4 H Preliminary micro results at discharge 08/27/25 10:57 Blood Culture - Preliminary Blood - Venous No growth after 48 hours. 08/27/25 10:57 Blood Culture - Preliminary Blood - Venous No growth after 48 hours. Discharge Plan Discharge Anticipated Discharge Date/Time: 08/29/25 14:18 Patient Disposition: Home Health Service Discharge Diagnosis: Acute on chronic blood loss anemia due to chemotherapy Referrals: [facility] [Outside] - 1 Week Dawood Tariq FNP-C [Primary Care Provider, Internal Medicine] - 1 Week Discharge Medications: New furosemide [Lasix] 20 mg tablet 20 mg PO .prn Qty: 30 0RF Rx Instructions: Take one tablet as necessary if you notice weight gain of 2lbs+ within a week Continued folic acid 1 mg Tablet 1 mg PO DAILY Qty: 90 3RF dexamethasone 4 mg tablet See Rx Instructions .ROUTE .COMPLEX Rx Instructions: Take 4 mg p.o. b.i.d. the day before chemo, and for the following 2 days. Repeat Q 21 days. ipratropium bromide 42 mcg (0.06 %) spray,non-aerosol 2 spray intranasal TID PRN (Reason: allergies) budesonide-formoterol [Symbicort] 160-4.5 mcg/actuation HFA aerosol inhaler 2 puff inhalation BID 30 Days Qty: 10.2 3RF amlodipine 10 mg tablet 10 mg PO DAILY Qty: 90 6RF Discharge Orders: Discharge Order (Routine); Ordered 08/29/25 Ordered By: Sheri Coelho Activity on Discharge: As tolerated Stand Alone Forms: Patient Portal Discharge page Print Language: Swazi Care Plan Goals: See below Health Concerns: Acute on chronic blood loss anemia Lower leg edema CHF Thrombocytopenia Plan of Treatment: You presented to the hospital with SOB, weakness, and lower leg edema and were admitted to the hospital for acute blood loss anemia and for concerns of c ongestive heart failure due to edema and elevated BNP. Anemia likely secondary to chemotherapy. You were transfused you 1 unit of blood in the ED, and also treated with IV Lasix for CHF. You were seen and evaluated by Cardiology and underwent an echocardiogram; cardiology thought your symptoms were from anemia and not congestive heart failure and did not feel that you needed to be placed on long-term diuretic use. Your blood levels remained stable and at baseline after transfusion. You were seen and evaluated by Physical therapy who recommended short-term rehab for strength and conditioning, but you declined this option and instead wish to be discharged home with services. You should continue all other home medications. -- you should monitor your weights daily and taken Lasix 20mg as necessary -- follow up with oncology as previously scheduled Assessment: See discharge summary Discharge Date/Time: 08/29/25 15:00
--- NOTE | 2025-08-30 19:10 | P.F2F_ITS ---
Service Date Service Date: 08/30/25 Encounter Date of encounter: 08/29/25 Reasons for Services Signs and symptoms assessed: Generalized weakness, recent hospitalization for acute blood loss anemia. Difficulty ambulating. Reason for penitentiary: medication management Reason for physical therapy: home safety and mobility, restore joint function and gait/transfer training Homebound: Leaving the home is medically contraindicated at this time without the asist of a device and/or another person due th the listed conditions above and below. Reason homebound: unsteady gait / fall risk, leg weakness, poor balance / fall risk and weakness related to hospital stay Certification: Based on the above findings, I certify that this patient is confined to the home and needs intermittent penitentiary care, physical therapy and/or speech ther apy, or continues to need occupational therapy. The patient is under my care, and I have initiated the establishment of the plan of care. The patient will be followed by a physician who will periodically review the plan of care. Time Spent With Patient Time: Total time managing care of this patient today ____ minutes.
--- NOTE | 2025-09-01 19:35 | P.CDIM_ITS ---
PROVIDER RESPONSE TEXT: To clarify, the appropriate diagnosis supported by the clinical indicators: Other (explain): CHF ruled out by cardiology and echo findings. Cardiology thought elevated BNP from anemia. QUERY TEXT: PHYSICIAN'S DOCUMENTATION REQUEST Date of Query: 08/29/2025 11:49 AM EST Patient Name: Hari Page Admit Date: 08/27/2025 Dear Sheri HOANG, A review of the medical record indicates additional documentation may be needed. Please review below and update the documentation accordingly. Clinical Indicators: Progress note 08/28 - New onset decompensated CHF Treated with Lasix 20mg IV bid Shortness of breath, difficulty walking, bilateral LE edema. BNP 268.5 Echo performed. Please provide further specificity regarding the most likely type and acuity of CHF you are evaluating, treating, or monitoring. Systolic Please specify if Acute, Chronic, or Acute on chronic, or Unable to determine Diastolic Please specify if Acute, Chronic, or Acute on chronic, or Unable to determine Combined Systolic/Diastolic Please specify if Acute, Chronic, or Acute on chronic, or Unable to determine Other (explain) Clinically unable to determine (explain) Thank you, Donna Corley, CCS, CDIS Use of terms such as suspected, likely, concern for, or probable (associated with a specific diagnosis that is being evaluated, monitored, or treated as if it exists) are acceptable and can be coded in the inpatient setting, when documented at the time of discharge. Please use your independent medical judgment in providing your response. THIS QUERY IS PART OF THE PERMANENT MEDICAL RECORD
== END 2025-08-29 15:00 | disposition home health service (06) | DRG 812 ==
LOC: HO.ED 14:21 → HO.EDOVER 15:04 → HO.IMC 19:23
PROVIDERS: Registered Nurse Emergency; Admitting Provider Student in an Organized Health Care Education/Training Program; Emergency Provider Emergency Medicine; Visit Provider Student in an Organized Health Care Education/Training Program
DX: D62 Acute posthemorrhagic anemia (principal); E87.21 Acute metabolic acidosis; C34.11 Malignant neoplasm of upper lobe, right bronchus or lung; C78.7 Secondary malignant neoplasm of liver and intrahepatic bile duct; E87.1 Hypo-osmolality and hyponatremia; J44.9 Chronic obstructive pulmonary disease, unspecified; Z66 Do not resuscitate; I10 Essential (primary) hypertension; D69.59 Other secondary thrombocytopenia; N40.0 Benign prostatic hyperplasia without lower urinary tract symptoms; D64.81 Anemia due to antineoplastic chemotherapy; T45.1X5A Adverse effect of antineoplastic and immunosuppressive drugs, initial encounter; F17.210 Nicotine dependence, cigarettes, uncomplicated; Z71.6 Tobacco abuse counseling; Z20.822 Contact with and (suspected) exposure to COVID-19; Z79.899 Other long term (current) drug therapy
CPT/HCPCS: 36415; 71275; 80048; 80053; 81003; 83605; 83735; 83880; 84484; 85025; 85027; 85610; 86850; 86900; 86901; 86923; 87040; 87502; 87635; 90656; 93005; 93306; 93970; 94640; 97162; 99285; J1938; J2543; P9016; Q9957; Q9967

== ENCOUNTER → 2025-08-27 10:08 | Outpatient (BNV) | payer MEDICARE, MEDICAID, SELFPAY | PROVIDERS: Emergency Provider Emergency Medicine; Visit Provider Radiology Diagnostic Radiology | DX: C34.90 Malignant neoplasm of unspecified part of unspecified bronchus or lung (principal); R06.00 Dyspnea, unspecified; R00.0 Tachycardia, unspecified; M79.651 Pain in right thigh; M79.652 Pain in left thigh; R22.43 Localized swelling, mass and lump, lower limb, bilateral | CPT/HCPCS: 71275; 93970 ==

== ENCOUNTER → 2025-08-27 10:08 | Outpatient (BNV) | payer MEDICARE, MEDICAID, SELFPAY | PROVIDERS: Admitting Provider Student in an Organized Health Care Education/Training Program; Emergency Provider Emergency Medicine; Visit Provider Internal Medicine Cardiovascular Disease | DX: I49.9 Cardiac arrhythmia, unspecified (principal) | CPT/HCPCS: 93010 ==

== ENCOUNTER 2025-08-27 15:01 | Outpatient (BNV) | payer MEDICARE, MEDICAID, SELFPAY | END 2025-08-28 07:00 | PROVIDERS: Admitting Provider Student in an Organized Health Care Education/Training Program; Emergency Provider Emergency Medicine; Visit Provider Internal Medicine Cardiovascular Disease | DX: I51.7 Cardiomegaly (principal); I77.810 Thoracic aortic ectasia | CPT/HCPCS: 93306 ==

== ENCOUNTER → 2025-08-27 15:01 | Outpatient (BNV) | payer MEDICARE, MEDICAID, SELFPAY | PROVIDERS: Admitting Provider Student in an Organized Health Care Education/Training Program; Emergency Provider Emergency Medicine; Visit Provider Student in an Organized Health Care Education/Training Program | DX: I50.9 Heart failure, unspecified (principal); D62 Acute posthemorrhagic anemia | CPT/HCPCS: 99233 ==

== ENCOUNTER → 2025-08-27 15:01 | Outpatient (BNV) | payer MEDICARE, MEDICAID, SELFPAY | PROVIDERS: Admitting Provider Student in an Organized Health Care Education/Training Program; Emergency Provider Emergency Medicine; Visit Provider Internal Medicine Medical Oncology | DX: C34.11 Malignant neoplasm of upper lobe, right bronchus or lung (principal); C78.7 Secondary malignant neoplasm of liver and intrahepatic bile duct; D64.81 Anemia due to antineoplastic chemotherapy; D69.59 Other secondary thrombocytopenia | CPT/HCPCS: 99222 ==

== ENCOUNTER → 2025-08-27 15:01 | Outpatient (BNV) | payer MEDICARE, MEDICAID, SELFPAY | PROVIDERS: Admitting Provider Student in an Organized Health Care Education/Training Program; Emergency Provider Emergency Medicine; Visit Provider Internal Medicine Cardiovascular Disease | DX: D62 Acute posthemorrhagic anemia (principal); R06.00 Dyspnea, unspecified | CPT/HCPCS: 99223 ==

== ENCOUNTER 2025-09-10 08:48 | Outpatient (AMB) | payer MEDICARE, MEDICAID, SELFPAY ==
--- NOTE | 2025-09-10 09:10 | A.OFFVIS_ITS ---
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 He had initial CT scan back in July 2024. Unfortunately because of radiology limitations the patient did not get a final read until 10/12/2024. Demonstrated that he had 2 large masses in the right upper lobe area and also significant lymphadenopathy. In addition to the large mass in the pancreas. Therefore the patient was ordered to have a PET scan. Did call him at that time to let him know. He did undergo the PET scan. It demonstrates significant FDG activity in both the lungs the pancreas and also the liver. Therefore based on the findings I did talk to Radiology back in mid September and the thought was to go after the liver biopsy because of his significant respiratory disease in to minimize risk. Therefore the patient was ordered to have a liver biopsy. Although has not been scheduled as of yet. Therefore I did call Radiology and with the help of the administration was able to get a day for biopsy TuesdayOctober 29 at 13:00. Once we have those results we can. The patient understands that he may have 1 process that is advanced or to potential processes because of the pancreatic lesion and also the lung lesion and is not still clear what is the actual process going on the liver. But most likely it is metastatic and that will help us clear that. If the liver lesions are pancreatic then still would have to consider biopsying the pulmonary lesion or the mediastinal lymphadenopathy to see that is a lung primary as well. Therefore will continue to follow closely and try to expedite his care as part she is possible this time. In the meantime he did have PFTs demonstrating a severe obstruction. Unless the him on Anoro. The patient is interested in quitting smoking. He does have the patch done home which she can start. 11/29/2024 the patient is here for a pulmonary follow-up visit. Since we last spoke he did undergo the endobronchial ultrasound bronchoscopy which was positive again for poorly differentiated adenocarcinoma consistent with the pathology from the liver biopsy. The mg markers are positive for PD-L1 and otherwise negative. Because of the pancreatic mass is going to undergo a MRI of the abdomen tomorrow. Then after that he will follow-up with oncology regarding therapy. From a respiratory status the patient feels okay. He does have a productive cough. He had culture positive Haemophilus influenzae after the bronchoscopy he was treated for that. But he still having significant chest congestion. He still continues to smoke therefore he has a component of chronic bronchitis. Although he is also at risk for postobstructive pneumonias. Will go ahead and start him on azithromycin 3 times a week. He is supposed to also start Wixela. This should also help decrease the inflammation of the airways. in addition to this I do believe he is an excellent candidate for the pulmonary rehabilitation to provide him with increased pulmonary capacity and endurance. The patient is agreeable to doing this and I have placed an order. Will follow- up in 2 months. If any issues arise prior to this he will call for an earlier assessment. 04/08/2025 the patient is here for a pulmonary follow-up visit. Overall he is doing well. He completed already 6 cycles of chemotherapy and immune therapy. No significant adverse effects although he does feel weak and tired. He also required blood transfusion. He had repeat imaging studies 03/13/2025 which I personally reviewed. See attached in image to the note. Significant decrease in the nodular masslike density in the right hemithorax. Seems to be responding well to therapy. He did try the Wixela inhaler but he did not like the powder. Did feel like it was helping. Therefore he stopped it. Will broaden send him Symbicort this time hopefully the HFA works a little better for him. In the meantime he has not been able to quit smoking. Still struggling with that. I did encourage him to do so especially since he is trying to prolong his life in the [employer] a during the opposite. He will follow-up in 4-6 months. If he has any issues prior to this he will call for an earlier assessment. Her to the next visit he will probably already have additional imaging studies to review. 09/10/2025 the patient is here for pulmonary follow-up visit. The patient overall has been doing okay. He is breathing has been okay he continues his respiratory therapy as prescribed. The Symbicort inhaler has been very helpful. Will be sent to the pharmacy. He continues on the chemo and also the immune therapy. He gets that regularly. And he is on cycle 14. He has had some adverse effects and he did require a blood transfusion during the last visit. But he did okay. He was also given diuretics because he did gain some edema. He still has edema of the right hand. He states that he is not getting any worse. He is going to monitor closely if it gets worse he will let his doctors know. He already got Doppler studies of the lower extremities and he ruled out for any DVT. He did get the flu shot today. The patient follow-up with Pulmonary in 6 months he will continue his current respiratory therapy. [facility] Medical History Lung cancer COPD (chronic obstructive pulmonary disease) Pancreatic mass Lymphadenopathy Lung mass Nicotine dependence, cigarettes, uncomplicated SVT (supraventricular tachycardia) Edema Pressure ulcer Alcohol use disorder Cognitive disorder Rhabdomyolysis Hypertension Surgical History History of colonoscopy History of lumbar laminectomy Family History Father No problems noted. Mother Lung cancer Family/Other Lung cancer Throat cancer Social History Household Members: None Household Members Other:: pt lives alone Housing: Apartment Are you a primary palliative care nurse to a significant other at home: No Do you presently have visiting nurse or other home services: No Alcohol intake: current Alcohol intake frequency: 3 or more drinks per day Alcohol type: beer Comment: camera not available Patient Tobacco Use Status: Current everyday Tobacco user Tobacco use type: Cigarette Cigarette Packs Per Day: 1 Years Smoked: (onset 16yo, 1-1.5ppd x 53yrs, 60+PYH) e-Cigarette/Vaping Use: Currently Using Second Hand Smoke Exposure: No Advance Directives Date on File: 12/14/22 service: No 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 identity: Male Cognitive needs: Yes (Cane) Hearing needs: No Vision needs: Yes (Glasses) Review of Systems Const Denies chills, Reports fatigue, Denies headache(s) and Denies weight loss Eyes Denies change in vision, Denies diplopia and Denies eye pain ENT Denies vertigo, Denies dizziness, Denies headache(s) and Denies nasal discharge Card Denies chest pain, Denies rapid heart rate and Denies dyspnea on exertion Resp Reports chest congestion, Reports cough, Denies pain with cough and Denies dyspnea on exertion GI Denies abdominal pain, Denies hematochezia and Denies change in bowel habits Musc Denies myalgias, Denies arthralgias and Denies joint swelling Skin/Breast Denies lesions and Denies unusual bruising Neuro Denies vertigo, Denies dizziness, Denies headache(s) and Denies focal weakness Endo Reports fatigue Physical Exam Vital Signs: Last Vital Signs Pulse 86 09/10/25 09:11 BP 118/50 L 09/10/25 09:11 Pulse Ox 95 09/10/25 09:11 Oxygen Delivery Method Room Air 09/10/25 09:11 BMI result Body Mass Index 26.5 Const General: comfortable HEENT Head: Yes normocephalic Neck Neck: Yes supple Chest Chest palpation & inspection: normal inspection of the chest Resp Effort & Inspection: normal respiratory effort Auscultation: diminished lung sounds Cardio Heart sounds: S1 normal heart sound present and S2 normal heart sound present GI Palpation (GI): Soft to palpation Skin General skin exam: no rashes or lesions noted Extrem General: No cyanosis Office Procedures Flu Questionnaire Does the patient have a severe egg allergy?: No Does the patient have severe life threatening allergies?: No Does the patient have a fever or illness today?: No Has the patient ever had Guillain-Owings Syndrome?: No Has the patient ever had any past reaction to a flu shot?: No Immunizations Fluarix [id number] (PF) 45 mcg (15 mcg x 3)/0.5 mL IM syringe Performing Provider: Josemanuel Cesar MD Performing Location: [facility] [place] [facility] Administered by: Kelsi Gallardo LPN on 09/10/25 10:35 Dose Route Admin Location Dispensed Lot Number Expiration Date NDC Press Tender 0.5 mL IM Right Deltoid 0.5 mL [id number] 04/22/26 50099-014-58 [facility] Given Date VIS Provided VIS Publication Date 09/10/25 Single Vaccine 24 Eligibility Eligibility Date Funding Source Not [facility] Eligible 09/10/25 Private Assessment & Plan Assessment & Plan (1) COPD (chronic obstructive pulmonary disease): Code(s): J44.9 - Chronic obstructive pulmonary disease, unspecified Category: Medical Qualifiers: COPD type: chronic bronchitis Chronic bronchitis type: simple Qualified Code(s): J41.0 - Simple chronic bronchitis (2) Hepatic lesion: Code(s): K76.9 - Liver disease, unspecified Category: Medical (3) Pancreatic mass: Code(s): K86.89 - Other specified diseases of pancreas Category: Medical (4) Nicotine dependence, cigarettes, uncomplicated: Comment: (onset 16yo, 1-1.5ppd x 53yrs, 60+PYH+fam hx lung ca - brother/mom) Code(s): F17.210 - Nicotine dependence, cigarettes, uncomplicated Category: Medical (5) 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: Code(s): C34.90 - Malignant neoplasm of unspecified part of unspecified bronchus or lung; C78.7 - Secondary malignant neoplasm of liver and intrahepatic bile duct Category: Medical Plan Symbicort start Combivent respimet Ipratropium nasal spray for vasomotor rhinitis F/U 6 months Orders: Orders Influenza [id number] Immunization Today J41.0 - Simple chronic bronchitis Medications: New ipratropium-albuterol 20-100 mcg/actuation (Combivent Respimat) space evenly during waking hours 1 puff inhalation QID 4 grams 11RF 30 days Refilled budesonide-formoterol 160-4.5 mcg/actuation (Symbicort) 2 puffs inhalation BID 10.2 grams 3RF 30 days J44.89 - Other specified chronic obstructive pulmonary disease Coding Level of Care Code Est Pt Level 4 (75286) Complex EM visit Add On G2211 Diagnoses Simple chronic bronchitis J41.0 COPD type: chronic bronchitis Chronic bronchitis type: simple Hepatic lesion K76.9 Pancreatic mass K86.89 Nicotine dependence, cigarettes, uncomplicated F17.210 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
[2025-09-10 09:11] VITALS: BP 118/50; PULSE 86; O2SAT 95; BMI 26.5
== END 2025-09-10 09:46 | disposition home or self-care (01) ==
LOC: HO.HPS 08:50
PROVIDERS: PCP Internal Medicine; Visit Provider Hospitalist
DX: J41.0 Simple chronic bronchitis (principal); K76.9 Liver disease, unspecified; K86.89 Other specified diseases of pancreas; F17.210 Nicotine dependence, cigarettes, uncomplicated; C34.90 Malignant neoplasm of unspecified part of unspecified bronchus or lung; C78.7 Secondary malignant neoplasm of liver and intrahepatic bile duct
CPT/HCPCS: 99214; G2211

== ENCOUNTER → 2025-09-10 08:48 | Outpatient (BNVA) | payer MEDICARE, MEDICAID, SELFPAY | PROVIDERS: PCP Internal Medicine; Visit Provider Hospitalist | DX: J41.0 Simple chronic bronchitis (principal); K76.9 Liver disease, unspecified; K86.89 Other specified diseases of pancreas; F17.210 Nicotine dependence, cigarettes, uncomplicated; C34.90 Malignant neoplasm of unspecified part of unspecified bronchus or lung; C78.7 Secondary malignant neoplasm of liver and intrahepatic bile duct; Z23 Encounter for immunization | CPT/HCPCS: 90471; 90656; 99212 ==

== ENCOUNTER 2025-09-13 12:14 | Outpatient (AMB) | payer MEDICARE, MEDICAID, SELFPAY ==
--- OUTSIDE RECORDS SUMMARY | 2025-01-02 06:20 | XMS_ITS ---
Author Organization [facility] Address [address] [place] [address] Care Team Providers Care Meal Room Hand Name Role Phone Moise WALLACE, Winston Primary Care Provider Unavaila Wander Manzanares [phone] REASON FOR VISIT screening Encounters Encounter Location Date Provider Diagnosis [facility] Out[facility] [address] [place], [place] [id number] 01/02/2025 Wander Vega Plan Of Treatment No Information Progress Notes * HARIS HAMBALA SaraviaDOB: [birth year] (70 yo M)Acc No.[id number]:01/02/2025 COLON WITH MAC Patient: LADONNA BLACKBURN Provider: Candy Vega MD :1955 A ge:69 Y S ex:Male Date:01/02/2025 Address:[address] [place] [address] [address] [id number] Pcp:Winston Phipps MD Subjective: * Chief Complaints: * S creening * The named appointment provid er may or may not be the originator of this progress note, and it is not deemed complete until electronically signed by the appointment provider. Sign off status: Pending * Provider: Candy Vega MD Date: 0 01/02/2025 Generated for Catie veliz/Jayme/eTransmitting on: 1 11/13/2024 12:45 PM EST
--- OUTSIDE RECORDS SUMMARY | 2025-09-13 12:45 | XMS_ITS | Patient Health Record ---
Author Organization [facility] Address [address] [place] [address] Care Team Providers Care Outsole Cementer Name Role Phone Winston Phipps MD Primary Care Provider Wander Fried Unavailable [phone] Allergies No Known Allergies Reason For Referral No Information Medications Medication SIG (Take, Route, Fr equency, Duration) Notes Start Date End Date Status Motrin prn Active Lisinopril 10 MG Tablet Oral; Duration: 90 Active Social History Tobacco Use: Social History Observation Description Date Details (start date - stop date) Current Smoker NA - NA Social History Drugs/Alcohol: Social Info Question Answer Notes Alcohol Screen Did you have a drink containing alcohol in the past year? Yes How often did you have a drink containing alcohol in the past year? Monthly or less (1 point) How many drinks did you have on a typical day when you were drinking in the past year? 1 or 2 drinks (0 point) How often did you have 6 or more drinks on one occasion in the past year? Never (0 point) Points 1 Interpretation Negative Tobacco Use: Social Info Question Answer Notes Tobacco Use/Smoking Patient is a current smoker How many cigarettes a day do you smoke? - Additional Details Category Social Info Options Details Miscellaneous: Marital status: single Occupation: retired Section Notes: Couple of beers every day; s mokes 1 PPD; heavy drinker until about 2021 Problems Problem Type SNOMED Code ICD Code Onset Dates Problem Status W/U Status Risk Notes Problem Colon cancer screening (609664218) Colon cancer screening (Z12.11) Active confirmed Problem Pre-procedure evaluation check (648394703) Encounter for other preprocedural examination (Z01.818) Active confirmed Vital Signs Blood pressure diastolic 00 mm Hg 09/25/2024 Height 6 ft 1 in in 09/25/2024 Blood pressure systolic 00 mm Hg 09/25/2024 Weight 188 lbs 09/25/2024 BMI 24.80 kg/m2 09/25/2024 Encounters Encounter Location Date Provider Diagnosis [facility] [address] [place] [address] 09/25/2024 Wander Vega Colon cancer screeni ng Z12.11 and Encounter for other preprocedural examination Z01.818 [facility] [address] [place] [address] 11/20/2024 Wander Vega Assessments Encounter Date Diagnosis [...] Insured Coverage Start Date Coverage End Date [facility] [address] [address] [place] [address] [id number] LADONNA HAM Self - patient is the insured Medical (General) History Medical History History ICD Code Hypertension Denies MS,DM,CVA,Lung disease,renal dise ase Arthritis Negative screening colonoscopy > [address] Gates Surgical History Surgery Date(Month/Year) Back surgery
--- OUTSIDE RECORDS SUMMARY | 2025-09-13 12:45 | XMS_ITS | Clinical Summary ---
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
--- NOTE | 2025-09-13 12:52 | MHC.PC.OV ---
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 b.i.d. the day before chemo, and for the following 2 days. Repeat Q 21 days. folic acid 1 mg PO DAILY furosemide (Lasix) 20 mg PO .prn ipratropium bromide 2 sprays intranasal TID PRN ipratropium-albuterol 20-100 mcg/actuation (Combivent Respimat) 1 puff inhalation QID 30 days Tobacco use date assessed: 09/13/25 Fall risk assessment: No Falls in past year Last assessed Fall Risk: 09/13/25 Dental Screening Dental Screen Date: 09/13/25 Did you have a dental visit in the last 12 months?: No Did you have a dental problem in the last 6 months where you did not have access to dental care?: No Was dental information given to patient?: No HPI HPI Comments History of Present Illness Details 70 y/o male presents today for HDF. PMH significant for COPD (not on home O?), HTN, small-cell lung cancer currently on chemotherapy (follows with Dr. Tanner; last infusion 08/15), and recurrent anemia requiring frequent transfusions post-chemo. Recently [place] [facility] [place]08[place]29 for acute on chronic anemia with elevated BNP and bilateral leg edema concerning for possible new-onset CHF. Anemia felt to be secondary to chemotherapy; patient has required ~10+ transfusions after previous chemo cycles. Cardiology evaluation and echocardiogram during admission suggested symptoms were more likely due to anemia rather than CHF; he was not started on long-term diuretics or GDMT. CTA chest: negative for PE; positive for right layering pleural effusion, trace left effusion, and minimal increase in RUL pulmonary masses. Bilateral LE Doppler U/S: negative for DVT. PT evaluated in hospital; recommended STR for strengthening, but patient declined and chose to discharge home with services. Today: Reports right hand/wrist swelling x1 week. Notes last chemotherapy infusion was placed in that arm ~1.5 weeks ago. Denies chest pain, SOB, wheezing, headache, dizziness, fever, or chills. [facility] Medical History (Updated 09/13/25 @ 14:10 by Carrie Meyers NP) Swelling of right hand Anemia in chronic illness Lung cancer COPD (chronic obstructive pulmonary disease) Pancreatic mass Lymphadenopathy Lung mass Nicotine dependence, cigarettes, uncomplicated SVT (supraventricular tachycardia) Edema Pressure ulcer Alcohol use disorder Cognitive disorder Rhabdomyolysis Hypertension Surgical History History of colonoscopy History of lumbar laminectomy Family History Father No problems noted. Mother Lung cancer Family/Other Lung cancer Throat cancer Social History Household Members: None Household Members Other:: pt lives alone Housing: Apartment Are you a primary health care recruiter to a significant other at home: No Do you presently have visiting nurse or other home services: No Alcohol intake: current Alcohol intake frequency: 3 or more drinks per day Alcohol type: beer Comment: camera not available Patient Tobacco Use Status: Current everyday Tobacco user Tobacco use type: Cigarette Cigarette Packs Per Day: 1 Years Smoked: (onset 16yo, 1-1.5ppd x 53yrs, 60+PYH) e-Cigarette/Vaping Use: Currently Using Second Hand Smoke Exposure: No Advance Directives Date on File: 12/14/22 service: No 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 identity: Male Cognitive needs: Yes (Cane) Hearing needs: No Vision needs: Yes (Glasses) Questionnaire Thrive Questionnaire Date Thrive assessed: 04/24/25 I am a: Patient What is your living situation today?: I have a steady place to live Within the past 12 months, did the food you bought not last and you didn't have the money to get more?: Never true Within the past 12 months, did you worry whether your food would run out before you got money to buy more?: Never true Do you have trouble paying for medicines?: Yes Do you have trouble getting transportation to medical appointments?: No Do you have trouble paying your heating and electricity bill?: Yes Do you have trouble taking care of your child, family member or friend?: No Do you have trouble with day-to-day activities such as bathing, preparing meals, shopping, managing finances, etc.?: No Are you currently unemployed and looking for a job?: Yes Are you interested in more education?: No Please select the resources that you would like help with: None Currently or been in a relationship where the following occur: No concerns reported THRIVE Score: 1 TATIANA-7 AMB Questionnaire TATIANA-7 Date TATIANA - 7 assessed: 01/01/25 Source: Developed by Drs. Wander Fox, Mallorie Reed, Dwight Vernon and colleagues, with an educational gabbi from [employer]. Review of Systems Const All systems reviewed & are unremarkable except as noted in HPI and below Physical exam (Primary Care) Vital Signs: Last Vital Signs Pulse 111 H 09/13/25 12:53 Resp 18 09/13/25 12:53 BP 178/60 H 09/13/25 12:53 Pulse Ox 100 09/13/25 12:53 Oxygen Delivery Method Room Air 09/13/25 12:53 BMI result Body Mass Index 26.0 Tobacco/Smoking Status: Tobacco use Status Tobacco use date assessed 09/13/25 09/13/25 13:04 Patient Tobacco Use Status Current everyday Tobacco 09/13/25 13:04 Tobacco use type Cigarette 09/13/25 13:04 e-Cigarette/Vaping Use Currently Using 09/13/25 13:04 Thrive Assessment: Date of Thrive Assessment Date Thrive assessed 04/24/25 09/13/25 13:04 Currently or been in a relationship where the following occur: No concerns reported Const General: no acute distress Orientation/consciousness: patient oriented x3 Limitations: ambulation with cane Resp Effort & Inspection: normal respiratory effort Auscultation: no crackles, no rales, no rhonchi and wheezes lower bilaterally Cardio Heart sounds: S1 normal heart sound present and S2 normal heart sound present Neuro General: patient oriented x3 Extrem Other: Right hand/wrist: swelling present; no warmth, Mild erythema, Mild tenderness, ROM limited. No obvious deformity. Coding Level of Care Code Est Pt Level 4 (54393) Diagnoses Anemia, unspecified type D64.9 Anemia type: unspecified type Swelling of right hand M79.89 Time Spent (min) 20 Assessment & Plan Assessment & Plan (1) Anemia: Code(s): D64.9 - Anemia, unspecified Category: Medical Qualifiers: Anemia type: unspecified type Qualified Code(s): D64.9 - Anemia, unspecified Plan: History of acute on chronic anemia secondary to chemotherapy ? currently asymptomatic; no signs of active bleeding. Continue monitoring CBC through oncology. Reinforced importance of reporting fatigue, dyspnea, or new symptoms. Follow oncology plan; maintain scheduled appointments with Dr. Tanner. (2) Swelling of right hand: Code(s): M79.89 - Other specified soft tissue disorders Category: Medical Plan: Right hand/wrist swelling ? onset ~1 week, temporally related to recent IV chemotherapy infusion in that arm. Differential includes: Local IV infiltration reaction vs Superficial thrombophlebitis vs Cellulitis (less likely without pain, erythema, warmth, or systemic sx). Elevation and warm compresses. Return if swelling worsens, becomes painful/red, or systemic symptoms develop.
[2025-09-13 12:53] VITALS: BP 178/60; PULSE 111; RESP 18; O2SAT 100; BMI 26.0
== END 2025-09-13 13:38 | disposition home or self-care (01) ==
LOC: HO.HMCH 12:15
PROVIDERS: Visit Provider Nurse Practitioner Family
DX: D64.9 Anemia, unspecified (principal); M79.89 Other specified soft tissue disorders

== ENCOUNTER → 2025-09-13 12:14 | Outpatient (BNVA) | payer MEDICARE, MEDICAID, SELFPAY | PROVIDERS: Visit Provider Nurse Practitioner Family | DX: D64.9 Anemia, unspecified (principal); M79.89 Other specified soft tissue disorders | CPT/HCPCS: 99212 ==

== ENCOUNTER 2025-09-23 09:03 | Inpatient (IN) | payer MEDICARE, MEDICAID, SELFPAY ==
[2025-09-23] VITALS (9 sets, daily range): BP systolic 114–136; BP diastolic 51–71; PULSE 68–97; RESP 12–16; TEMP 36.3–36.7; O2SAT 94–97; BMI 26.0; BMI 25.8
--- NOTE | ~2025-09-23 | XR_ITS ---
EXAMINATION: XR CHEST 1 VIEW HISTORY: s/p L thoracentesis COMPARISON: Comparison is made with the prior examination performed earlier in the day at 11:46 AM. FINDINGS: Two AP portable views of the chest performed at 12:19 PM are submitted. Again seen is a 2.3 cm mass in the right upper lobe. There may be additional airspace opacity at the right lung base. Again seen is a small left pleural effusion. There is no pneumothorax. Airspace opacity at the left lung base may represent atelectasis or pneumonia. The heart is normal in size. The bones are intact. XR/XR chest 1V IMPRESSION: 1. Small left pleural effusion. No pneumothorax. 2. 2.3 cm right upper lobe mass as seen previously. 3. Airspace opacity at the left lung base may represent atelectasis or pneumonia. Electronically signed by: Wander Toscano MD 10/03/2025 12:35 PM [facility]
--- NOTE | ~2025-09-23 | XR_ITS ---
EXAMINATION: XR CHEST 1 VIEW HISTORY: s/p thoracentesis COMPARISON: Comparison is made with the prior examination dated 10/02/2025. FINDINGS: A single AP portable view of the chest performed at 11:46 AM is submitted. Again seen is a 2.3 cm mass in the right upper lobe. There is a small left pleural effusion. There is no pneumothorax. Airspace opacity at the left lung base may represent atelectasis. The heart is normal in size. The bones are intact. XR/XR chest 1V IMPRESSION: 1. Small left pleural effusion. No pneumothorax. 2. 2.3 cm right upper lobe mass without change. 3. Opacification of the left lung base may represent atelectasis or pneumonia. Electronically signed by: Wander Toscano MD 10/03/2025 12:02 PM [facility]
--- NOTE | ~2025-09-23 | XR_ITS ---
EXAMINATION: XR CHEST CLINICAL INFORMATION: Hypoxia COMPARISON: September 23, 2025 TECHNIQUE: AP upright position portable view of the chest was obtained. FINDINGS: Pulmonary reticular pattern. Patchy opacities involving mostly the right lung. Haziness in the right lower hemithorax/costophrenic angle. No gross pneumothorax. Cardiomediastinal silhouette size is normal. Degenerative changes in the shoulders. XR/XR chest 1V IMPRESSION: Worsening pulmonary edema. Pulmonary nodules, right hemithorax. Right-sided pleural effusion, small to moderate volume. Chronic interstitial lung disease. Electronically signed by: Trent Mota MD 09/27/2025 09:53 AM EST
--- NOTE | ~2025-09-23 | XR_ITS ---
CLINICAL HISTORY: pulmonary edema 1 view chest x-ray. Comparison: CR/SR - XR CHEST 1 VIEW - 09/27/25 09:41 EST Findings: Normal lung volumes. New patchy interstitial and airspace disease lung bases either cardiogenic or pneumonic. New nodular opacity right upper lobe. No pneumothorax or pleural effusion. The cardiac silhouette is nonenlarged. No midline shift or tracheal deviation. No acute fracture. Impression: 1. New patchy interstitial and airspace disease lung bases. This is either cardiogenic or pneumonic. Nodular opacity right upper lobe is new as well. This document has been electronically signed by: Boogie Agustin MD on 09/28/2025 10:47:33
--- NOTE | ~2025-09-23 | XR_ITS ---
CLINICAL HISTORY: shortness of breath 1 view chest x-ray Comparison: 09/28/2025 Findings: There is decreased pulmonary consolidation. The exam is otherwise unchanged IMPRESSION: 1. Decreased pulmonary consolidation. This document has been electronically signed by: Mike Moe MD on 09/29/2025 08:17:26
--- NOTE | ~2025-09-23 | XR_ITS ---
EXAMINATION: XR CHEST CLINICAL INFORMATION: chest pain COMPARISON: None available. TECHNIQUE: Frontal view of the chest was obtained. FINDINGS: Cardiomediastinal silhouette is stable, within normal limits. Low lung volumes. Airspace opacities in the right lung, increased from previous. Left basilar opacities. Possible small bilateral pleural effusions. No pneumothorax.. XR/XR chest 1V IMPRESSION: Right lung consolidation, increased from previous. Left basilar hazy opacities.. Possible small bilateral pleural effusions. Recommend follow-up to resolution.. Electronically signed by: Loyd Louise MD 10/02/2025 08:48 AM EST
--- NOTE | ~2025-09-23 | US_ITS ---
EXAMINATION: ULTRASOUND-GUIDED THORACENTESIS, bilateral CLINICAL INFORMATION: Lung cancer. PE. Bilateral pleural effusions. Respiratory distress. COMPARISON: Previous chest x-ray from earlier the same day and chest CT most recent from yesterday TECHNIQUE: Procedure and risks and benefits including bleeding, infection and pneumothorax were discussed with the patient and informed consent was obtained. The patient was positioned in the left decubitus position. Limited imaging of the right chest was performed. The right posterior lateral chest was prepped and draped in the usual sterile fashion. The skin and soft tissues were anesthetized with 1% lidocaine plain. Using ultrasound guidance and a 4 Bulgarian Yueh needle, access to the right pleural effusion was obtained. 1.050 L of clear yellow fluid was removed. Diagnostic specimen was sent. Portable chest x-ray was performed. This did not demonstrate pneumothorax or evidence of reexpansion pulmonary edema. The patient was positioned in the right decubitus position. Limited imaging of the left chest was performed. The left posterior lateral chest was prepped and draped in the usual sterile fashion. The skin and soft tissues were anesthetized with 1% lidocaine plain. Using ultrasound guidance and a 4 Bulgarian Yueh needle, access to the left pleural effusion was obtained. 650 mL of clear yellow fluid was removed. No diagnostic specimen was sent from the left chest. Portable chest x-ray was performed. This demonstrated no pneumothorax. FINDINGS: There are moderate to large bilateral pleural effusions, right greater than left. US/US thoracentesis IMPRESSION: Ultrasound-guided bilateral thoracentesis. Electronically signed by: Tiffany Granado MD 10/03/2025 04:02 PM [facility] [place]
--- NOTE | ~2025-09-23 | US_ITS ---
CLINICAL HISTORY: PEs, rule out DVT --- Additional Notes or Special Instructions: Bedside if possible Bilateral lower extremity venous duplex ultrasound. Color and spectral waveform analysis. Comparison: 08/27/2025 Findings: Deep veins are compressible with flow and augmentation. No popliteal cyst. No significant adenopathy. Subcutaneous edema in the calves. Impression: No evidence for DVT This document has been electronically signed by: Dallas Butts MD on 10/02/2025 19:28:11
--- NOTE | ~2025-09-23 | XR_ITS ---
EXAMINATION: XR CHEST CLINICAL INFORMATION: Productive cough, shortness of breath R/O CHF, pneumonia. COMPARISON: Correlation made with CT chest 08/27/2025. TECHNIQUE: AP view of the chest was obtained. FINDINGS: The cardiac, hilar, and mediastinal contours are normal. Saber-sheath trachea. Lungs are diffusely hyperaerated bilaterally, with mild flattening of the hemidiaphragms. There is patchy airspace disease in the right lower lung. There is a small amount of layering pleural fluid bilaterally. There is associated left base passive atelectasis. A cardiac lead partially obscures the known right upper lobe pulmonary mass. No pneumothorax or effusion. No focal osseous or soft tissue abnormality. There are degenerative changes of both shoulder joints and throughout the spine. XR/XR chest 1V IMPRESSION: 1. COPD. 2. Known pulmonary mass in the right upper lobe is partially obscured by a chest lead. 3. Patchy airspace disease in the right lower lung, suspicious for pneumonia. 4. Small layering effusions bilaterally with associated left base atelectasis. Electronically signed by: Paolo Quesada MD 09/23/2025 11:14 AM [facility]
--- NOTE | ~2025-09-23 | CT_ITS ---
EXAMINATION: CT ANGIOGRAM CHEST CLINICAL INFORMATION: Chest pain. Tachycardia. COMPARISON: August 27, 2025. TECHNIQUE: Multiple axial images were obtained through the chest after the administration of 65 mL of Omnipaque 350 intravenous contrast. Extensive vascular post-processing including two-dimensional and three-dimensional reformatted images were created and reviewed on an independent workstation. SmartPrep technique. This CT examination was performed using dose optimization techniques as appropriate, variously including the following: *Automated exposure control *Adjustment of mA and/or kV according to patient size (this includes techniques or standardized protocols for targeted exams where dose is matched to indication/reason for exam; i.e. extremities or head) *Use of iterative reconstruction technique DLP: 203 mGy-cm FINDINGS: Intraluminal filling defects within the subsegmental pulmonary branches to the left lower lung lobe. The main pulmonary artery and its main left and right branches are patent without gross intraluminal filling defects. The interventricular septum demonstrates no gross central bulging into the left ventricle. Less than 3 cm lobulated noncalcified pulmonary lesion/nodule, posterior segment right upper lung lobe. Bilateral pleural effusions, moderate to large volume. Compression atelectasis lung bases. No pneumothorax. Paraseptal emphysematous changes in the upper lung lobes. No gross bronchiectasis. Soft tissue fullness in the subcarinal right perihilar region. Moderate volume pericardial effusion. No aneurysm or dissection, thoracic aorta. Calcified plaques in the thoracic aortic arch and its main branches and the coronary arteries. No pneumomediastinum. Multilevel spondylosis in the axial skeleton. Old inferior endplate compression deformity at L1 vertebra. No gross lytic or blastic lesions. Sternum is intact. No acute fracture. CT/CT angio chest PE protocol IMPRESSION: Acute pulmonary artery emboli, subsegmental branches to the left lower lung lobe. Positive exam. No right ventricular strain sign. Concerning malignancy, right upper lung lobe. Bilateral pleural effusions, moderate to large volume. Pericardial effusion, moderate volume. Emphysema. Coronary artery disease and atherosclerosis disease.. Fleischner guidelines were followed. Electronically signed by: Trent Mota MD 10/02/2025 03:23 PM [facility]
--- NOTE | ~2025-09-23 | US_ITS ---
EXAMINATION: ULTRASOUND-GUIDED THORACENTESIS, bilateral CLINICAL INFORMATION: Lung cancer. PE. Bilateral pleural effusions. Respiratory distress. COMPARISON: Previous chest x-ray from earlier the same day and chest CT most recent from yesterday TECHNIQUE: Procedure and risks and benefits including bleeding, infection and pneumothorax were discussed with the patient and informed consent was obtained. The patient was positioned in the left decubitus position. Limited imaging of the right chest was performed. The right posterior lateral chest was prepped and draped in the usual sterile fashion. The skin and soft tissues were anesthetized with 1% lidocaine plain. Using ultrasound guidance and a 4 Luxembourgish Yueh needle, access to the right pleural effusion was obtained. 1.050 L of clear yellow fluid was removed. Diagnostic specimen was sent. Portable chest x-ray was performed. This did not demonstrate pneumothorax or evidence of reexpansion pulmonary edema. The patient was positioned in the right decubitus position. Limited imaging of the left chest was performed. The left posterior lateral chest was prepped and draped in the usual sterile fashion. The skin and soft tissues were anesthetized with 1% lidocaine plain. Using ultrasound guidance and a 4 Luxembourgish Yueh needle, access to the left pleural effusion was obtained. 650 mL of clear yellow fluid was removed. No diagnostic specimen was sent from the left chest. Portable chest x-ray was performed. This demonstrated no pneumothorax. FINDINGS: There are moderate to large bilateral pleural effusions, right greater than left. US/US thoracentesis IMPRESSION: Ultrasound-guided bilateral thoracentesis. Electronically signed by: Tiffany Granado MD 10/03/2025 04:02 PM [facility] [place]
--- NOTE | 2025-09-23 09:25 | ECG_ITS ---
Test Reason : dyspnea Blood Pressure : */* mmHG Vent. Rate : 91 BPM Atrial Rate : * BPM P-R Int : * ms QRS Dur : 74 ms QT Int : 394 ms P-R-T Axes : * 52 72 degrees QTcB Int : 484 ms Normal sinus rhythm with PAC's Nonspecific ST and T wave abnormality Abnormal ECG When compared with ECG of 27-Aug-2025 10:24, No significant changes seen Referred By: Generic ED Physician Electronically Signed By: SERGIO GAN
--- NOTE | 2025-09-23 10:29 | ED.SOB ---
HPI - SOB/Dyspnea General Chief Complaint: Dyspnea Stated Complaint: SOBX3D,WORSE W/EXER,SMOKER,ON CHEMO/LING CA Time Seen by Provider: 09/23/25 10:28 Source: patient Mode of arrival: ambulatory Limitations: no limitations History of Present Illness ED Provider: Dr. Dante Villegas HPI Narrative: 70-year-old male with a history of chronic anemia, small-cell lung cancer, currently receiving chemotherapy q.[address] Tanner with a recurrent anemia requiring transfusions, COPD, pancreatic mass, SVT, edema, rhabdomyolysis, hypertension, COPD on home oxygen who presents emergency department for evaluation of shortness of breath, weakness, lightheadedness, dizziness, rapid heart rate time 4 days. Patient states that has symptoms have gotten progressively worse to the point where he can only walk a proximally 2-3 feet before he gets when did lightheaded and dizzy. He denied fever, chills, sore throat. He states that he has had a cough which is productive of green phlegm with no blood in his sputum. He denies shortness of breath at rest but has significant dyspnea on exertion. He denied nausea vomiting or diarrhea. Denied bloody stools but he states he has noted occasional black stools. Patient was admitted from 08/27/2025 until 08/30/2025 with similar symptoms with a diagnosis of acute on chronic blood-loss anemia and acute congestive heart failure exacerbation. Discharge notes that the patient that has required at least 10 transfusions post chemotherapy. Patient was also felt to be in congestive heart failure and that has secondary to high output failure due to his anemia and not due to fluid overload. Related Data Home Medications ?Medication ?Instructions ?Recorded ?Confirmed dexamethasone 4 mg tablet See Rx Instructions .Route .COMPLEX 08/27/25 09/23/25 ipratropium bromide 42 mcg (0.06 2 spray intranasal TID PRN 08/27/25 09/23/25 %) nasal spray allergies furosemide 20 mg tablet (Lasix) 20 mg PO DAILY Weight gain 09/23/25 09/23/25 Previous Rx's ?Medication ?Instructions ?Recorded folic acid 1 mg tablet 1 mg PO DAILY #90 tabs 02/28/25 amlodipine 10 mg tablet 10 mg PO DAILY #90 tabs 07/31/25 budesonide-formoterol HFA 160 2 puff inhalation BID 30 days 09/10/25 mcg-4.5 mcg/actuation aerosol #10.2 grams inhaler (Symbicort) ipratropium 20 mcg-albuterol 100 1 puff inhalation QID 30 days #4 09/10/25 mcg/actuation mist for inhalation grams (Combivent Respimat) Allergies Allergy/AdvReac Type Severity Reaction Status Date / Time No Known Allergies Allergy Verified 09/23/25 09:19 Review of Systems Review of Systems: Yes all other systems are reviewed and are negative [facility] Past Medical History [facility] Narrative: Social history: Patient smokes 1/2 pack of cigarettes per day times 54 years. He drinks 2 beers per day. He denies drug use. Medical History (Updated 09/23/25 @ 14:35 by Brittany Cesar NP) Swelling of right hand Anemia in chronic illness Lung cancer COPD (chronic obstructive pulmonary disease) Pancreatic mass Lymphadenopathy Lung mass Nicotine dependence, cigarettes, uncomplicated SVT (supraventricular tachycardia) Edema Pressure ulcer Alcohol use disorder Cognitive disorder Rhabdomyolysis Hypertension Surgical History History of colonoscopy History of lumbar laminectomy Family History Family History Father No problems noted. Mother Lung cancer Family/Other Lung cancer Throat cancer Social History Social History Household Members: None Household Members Other:: pt lives alone Housing: Apartment Are you a primary gericare aide teacher to a significant other at home: No Do you presently have visiting nurse or other home services: Yes ([facility] and PT) Alcohol intake: current Alcohol intake frequency: 0-2 drinks per day Alcohol type: beer Comment: camera not available Patient Tobacco Use Status: Current everyday Tobacco user Tobacco use type: Cigarette Cigarette Packs Per Day: 1 Cigarettes Per Day: 15 Years Smoked: (onset 16yo, 1-1.5ppd x 53yrs, 60+PYH) e-Cigarette/Vaping Use: Currently Using Second Hand Smoke Exposure: No Advance Directives Date on File: 12/14/22 service: No 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 identity: Male Cognitive needs: Yes (Cane) Hearing needs: No Vision needs: Yes (Glasses) Physical Exam Vital Signs: Vital Signs: Last Vital Signs Temp 98.3 F 09/24/25 11:17 Pulse 94 09/24/25 11:51 Resp 19 09/24/25 11:51 BP 113/58 L 09/24/25 11:17 Pulse Ox 97 09/24/25 10:16 O2 Del Method Room Air 09/24/25 10:16 O2 Flow Rate 1 09/24/25 07:54 BMI result Body Mass Index 26.0 Vital signs were normal Exam: General: Awake, alert in no distress Head: Normocephalic, atraumatic EENT: PERRL, sclera and conjunctiva are normal, mouth with no erythema or exudates Neck: Supple, no adenopathy Lung: breath sounds symmetric, no wheezing, no rales and no rhonchi Chest: symmetric movement, nontender Heart: Irregular rate irregular rate, normal rhythm, no murmurs rubs or gallops Abdomen: soft, non-tender, nondistended, normal bowel sounds Back: no vertebral tenderness, no CVAT Rectal: Loose brown stool, sent for occult testing Extremities: 1 to 2+ pitting edema bilaterally symmetric, patient also had swelling of his upper extremities. Neuro: Awake, alert, oriented, normal speech, cranial nerves 2-12 intact, moves all extremities symmetrically Psych: Pleasant, cooperative Medications Administered Generic Name Dose Route Start Last Admin Trade Name Freq PRN Reason Stop Dose Admin Albuterol/Ipratropium 3 ml 09/24/25 12:00 09/24/25 11:47 Albuterol/Iprat 2.5/0.5mg 3 Ml Ampul.Neb INHALE 3 ml RQ6H BEATRIZ Administration Amlodipine Besylate 10 mg 09/24/25 09:00 09/24/25 09:17 Amlodipine Besylate 10 Mg Tablet PO 10 mg DAILY BEATRIZ Administration Protocol Enoxaparin Sodium 40 mg 09/23/25 16:00 09/23/25 17:28 Enoxaparin Sodium 40 Mg/0.4 Ml Syringe SUBCUT 40 mg Q24H BEATRIZ Administration Fluticasone/Vilanterol 1 puff 09/24/25 08:00 09/24/25 08:37 Fluticasone/Vilanterol 200/25 Blst.W.Dev INHALE 1 puff RDAILY BEATRIZ Administration Folic Acid 1 mg 09/24/25 09:00 09/24/25 09:16 Folic Acid 1 Mg Tablet PO 1 mg DAILY BEATRIZ Administration Furosemide 20 mg 09/24/25 09:00 09/24/25 09:16 Furosemide 20 Mg Tablet PO 20 mg DAILY BEATRIZ Administration Protocol Sodium Chloride 3 ml 09/23/25 16:00 09/24/25 07:08 0.9 % Sodium Chloride Flush 3 Ml Syringe IVFLUSH Not Given QSHIFT BEATRIZ Discontinued Medications Generic Name Dose Route Start Last Admin Trade Name Gilda PRN Reason Stop Dose Admin Furosemide 40 mg 09/23/25 12:48 09/23/25 13:05 Furosemide 40 Mg/4 Ml Vial IVPUSH 09/23/25 12:49 40 mg ONCE ONE Administration Protocol Medical Decision Making Medical Decision Making [facility] Narrative: 70-year-old male with a history of chronic anemia, small-cell lung cancer, currently receiving chemotherapy q.[address] Tanner with a recurrent anemia requiring transfusions, COPD, pancreatic mass, SVT, edema, rhabdomyolysis, hypertension, COPD on home oxygen who presents emergency department for evaluation of shortness of breath, weakness, lightheadedness, dizziness, rapid heart rate time 4 days. Patient states that has symptoms have gotten progressively worse to the point where he can only walk a proximally 2-3 feet before he gets when did lightheaded and dizzy. He denied fever, chills, sore throat. He states that he has had a cough which is productive of green phlegm with no blood in his sputum. He denies shortness of breath at rest but has significant dyspnea on exertion. He denied nausea vomiting or diarrhea. Denied bloody stools but he states he has noted occasional black stools. Patient had similar presentation and was admitted to [facility] 08/27/2025 until 08/30/2025 with a acute congestive heart failure secondary to anemia requiring transfusion. Patient's vital signs were unremarkable. Heart exam did reveal an irregularly irregular heart rate. Patient also had significant pitting edema in his lower extremities and swelling in his upper extremities. Differential diagnosis: ?Includes but is not limited to myocardial infarction, myocardial ischemia, pneumonia, chronic lung disease exacerbation, anemia, GI bleed, electrolyte abnormalities Course: 12:34 My independent interpretation patient's laboratory evaluation is as follows: Anemia with an H&H of 5.5 and 16 compared to an H&H of 7.3 and 21.3 on 09/05/2025. Elevated bicarb 30. Elevated AST 45. Elevated alk-phos 157. Elevated NT pro BNP 703. Venous blood gas revealed respiratory alkalosis with a pH of 7.51 and a pCO2 41. Occult stool test was negative. Twelve EKG was difficult to interpret, patient may have atrial fibrillation versus normal sinus rhythm with sinus arrhythmia and PACs. Chest x-ray revealed patchy airspace disease in the right lower lung suspicious for pneumonia however clinically this is more likely consistent with congestive heart failure. Patient also has small bilateral pleural effusions. Patient was given Lasix 40 mg IV. The patient's anemia is most likely related to his chemotherapy. Patient was ordered to get 1 unit of packed red blood cells transfused slowly. I will discuss admission with the covering hospitalist. Differential Diagnosis Differential Diagnoses: The differential diagnosis associated with the presentation includes (See above) Admission/Observation Consideration of admission/observation: Escalation of care including admission/observation considered (Yes) Consult Healthcare Provider Management of the patient was discussed with: Hospitalist Lab Data MDM Lab Attestation statement: I reviewed the patient's lab results. 09/24/25 05:35 09/24/25 05:35 Labs: Lab Results 09/23/25 09/23/25 09/23/25 Range/Units 10:48 10:51 11:05 WBC 6.5 (4.8-10.8) X10*3/uL RBC 1.65 L D (4.60-5.80) X10*6/uL Hgb 5.5 L* D (14.0-18.0) g/dl Hct 16.0 L* D (42.0-52.0) % MCV 97.0 (80.0-98.0) fL MCH 33.3 H (27.0-33.0) pg MCHC 34.4 (31.0-36.0) g/dl RDW 23.0 H (11.0-16.0) % Plt Count 202 D (160-400) X10*3/uL MPV 10.6 (9.4-12.4) fL Immature Gran % (Auto) Cancelled Neut % (Auto) Cancelled Lymph % (Auto) Cancelled Winkler % (Auto) Cancelled Eos % (Auto) Cancelled Baso % (Auto) Cancelled Lymph # (Auto) Cancelled Winkler # (Auto) Cancelled Eos # (Auto) Cancelled Baso # (Auto) Cancelled Abs Immat Gran (auto) Cancelled Absolute Neuts (auto) Cancelled Absolute Nucleated RBC 0.000 (0.0-0.012) X10*3/uL Nucleated RBC % (auto) 0.0 (0.0-0.2) /100WBC Neutrophils % (Manual) 68 (45-73) % Band Neutrophils % 2 L (3-5) % Lymphocytes % (Manual) 20 (20-40) % Monocytes % (Manual) 6 (2-11) % Eosinophils % (Manual) 1 (0-4) % Blast Cells % (Manual) 3 % Abs Neuts (Manual) 4.6 (2.0-8.3) X10*3/uL Lymphocytes # (Manual) 1.3 (1.2-4.9) X10*3/uL Monocytes # (Manual) 0.4 (0.1-1.2) X10*3/uL Eosinophils # (Manual) 0.1 (0.0-0.4) X10*3/uL Blast Cells # 0.2 X10*3/uL Platelet Estimate NORMAL (NORMAL) Plt Morphology Comment NORMAL RBC Morphology NORMAL Hypochromasia 3+ (>30) /OIF Tear Drop Cells 1+ (0-2) /OIF Ovalocytes 1+ (5-14) /OIF Hillside Cells 1+ (0-2) /OIF Smear Path Review SEE NOTE PT 14.5 H (11.2-13.5) SEC INR 1.2 H (0.9-1.1) APTT 30.9 (26.7-34.1) SEC VBG pH 7.51 H (7.32-7.43) VBG pCO2 41 mmHg VBG pO2 39 mmHg VBG HCO3 33 H (22-26) mmol/L VBG O2 Saturation TNP VBG Base Excess 9.5 mmol/L Sodium 135 (135-145) mmol/L Potassium 3.3 (3.3-5.1) mmol/L Chloride 98 (96-108) mmol/L Carbon Dioxide 30 H (22-29) mmol/L Anion Gap 10 L (12-20) BUN 12 (9-16) mg/dL Creatinine 1.02 (0.5-1.4) mg/dL Estim Creat Clear Calc 78.3 Estimated GFR > 60 Random Glucose 87 (60-115) mg/dL Lactic Acid 1.2 (0.5-2.0) mmol/L Calcium 8.2 L (8.4-10.2) mg/dL Magnesium 1.6 (1.6-2.6) mg/dL Total Bilirubin 0.3 (0.0-1.0) mg/dL AST 45 H (5-37) U/L ALT 10 (0-40) U/L Alkaline Phosphatase 157 H (39-117) U/L Troponin I High Sens 4.6 D (<3.5-35.0) ng/L NT-Pro-B Natriuret Pep 703.5 H (<300) pg/mL Total Protein 5.3 L (6.5-8.0) g/dL Albumin 2.4 L (3.5-5.0) g/dL Lipase 25 (8-78) U/L Stool Occult Blood (NEGATIVE) Influenza Type A (PCR) NEGATIVE (Negative) Influenza Type B (PCR) NEGATIVE (Negative) RSV RNA Qual (PCR) NEGATIVE (Negative) SARS-CoV-2 RNA (RT-PCR) NEGATIVE (Negative) Blood Type Antibody Screen Crossmatch 09/23/25 09/23/25 Range/Units 12:05 12:37 WBC (4.8-10.8) X10*3/uL RBC (4.60-5.80) X10*6/uL Hgb (14.0-18.0) g/dl Hct (42.0-52.0) % MCV (80.0-98.0) fL MCH (27.0-33.0) pg MCHC (31.0-36.0) g/dl RDW (11.0-16.0) % Plt Count (160-400) X10*3/uL MPV (9.4-12.4) fL Immature Gran % (Auto) Neut % (Auto) Lymph % (Auto) Winkler % (Auto) Eos % (Auto) Baso % (Auto) Lymph # (Auto) Winkler # (Auto) Eos # (Auto) Baso # (Auto) Abs Immat Gran (auto) Absolute Neuts (auto) Absolute Nucleated RBC (0.0-0.012) X10*3/uL Nucleated RBC % (auto) (0.0-0.2) /100WBC Neutrophils % (Manual) (45-73) % Band Neutrophils % (3-5) % Lymphocytes % (Manual) (20-40) % Monocytes % (Manual) (2-11) % Eosinophils % (Manual) (0-4) % Blast Cells % (Manual) % Abs Neuts (Manual) (2.0-8.3) X10*3/uL Lymphocytes # (Manual) (1.2-4.9) X10*3/uL Monocytes # (Manual) (0.1-1.2) X10*3/uL Eosinophils # (Manual) (0.0-0.4) X10*3/uL Blast Cells # X10*3/uL Platelet Estimate (NORMAL) Plt Morphology Comment RBC Morphology Hypochromasia /OIF Tear Drop Cells /OIF Ovalocytes /OIF Hillside Cells /OIF Smear Path Review PT (11.2-13.5) SEC INR (0.9-1.1) APTT (26.7-34.1) SEC VBG pH (7.32-7.43) VBG pCO2 mmHg VBG pO2 mmHg VBG HCO3 (22-26) mmol/L VBG O2 Saturation VBG Base Excess mmol/L Sodium (135-145) mmol/L Potassium (3.3-5.1) mmol/L Chloride (96-108) mmol/L Carbon Dioxide (22-29) mmol/L Anion Gap (12-20) BUN (9-16) mg/dL Creatinine (0.5-1.4) mg/dL Estim Creat Clear Calc Estimated GFR Random Glucose (60-115) mg/dL Lactic Acid (0.5-2.0) mmol/L Calcium (8.4-10.2) mg/dL Magnesium (1.6-2.6) mg/dL Total Bilirubin (0.0-1.0) mg/dL AST (5-37) U/L ALT (0-40) U/L Alkaline Phosphatase (39-117) U/L Troponin I High Sens (<3.5-35.0) ng/L NT-Pro-B Natriuret Pep (<300) pg/mL Total Protein (6.5-8.0) g/dL Albumin (3.5-5.0) g/dL Lipase (8-78) U/L Stool Occult Blood NEGATIVE (NEGATIVE) Influenza Type A (PCR) (Negative) Influenza Type B (PCR) (Negative) RSV RNA Qual (PCR) (Negative) SARS-CoV-2 RNA (RT-PCR) (Negative) Blood Type A Positive Antibody Screen NEGATIVE Crossmatch See Detail Independent Interpretation I performed an independent interpretation of an: EKG and Plain X-Ray Interpretation: My independent interpretation of the patient's of the patient's one-view chest x-ray is as follows: Slight wanting of diaphragms bilaterally, increased interstitial markings at the bases increased at the right compared to the left My independent interpretation patient's 12 EKG done on 09/23/2025 at 09:28 hours is as follows: Irregular irregular rhythm, there is artifact in the baseline which makes P-waves difficult to see with a rate of 91, normal QRS duration, prolonged QTC of 484 milliseconds, no ST segment elevation, no ST segment depression, no significant T-wave inversions. Compared to EKG dated 08/27/2025 at 10:24 hours, patient had a sinus rhythm with marked sinus arrhythmia on the previous EKG.. Radiology Impression Discussion of test interpretation with radiology: I have reviewed the radiologist's reading. Radiologist Impression: XR chest 1V IMPRESSION: 1. COPD. 2. Known pulmonary mass in the right upper lobe is partially obscured by a chest lead. 3. Patchy airspace disease in the right lower lung, suspicious for pneumonia. 4. Small layering effusions bilaterally with associated left base atelectasis. Electronically signed by: Paolo Quesada MD 09/23/2025 11:14 AM [facility] External Record Review External record reviewed: Inpatient record, Office record and Prior outpatient labs Chronic Conditions Patient?s care impacted by: Other (COPD, small-cell lung cancer) Critical Care Time Critical Care Time Critical Care Time: Yes Total Critical Care Time: 35 Attestation: Critical Care: The patient was critically ill with a high probability of imminent or life threatening deterioration. I spent greater than 30 minutes of discontinuous time evaluating the patient,delivering critical care at the bedside, discussing and evaluating pertinent data with consultants. Critical care time does not include time spent performing separately billable procedures or teaching. Total time spent performing critical care was 35 minutes. Discharge Plan Discharge Clinical Impression: Acute congestive heart failure, Acute anemia Patient Disposition: Admitted As Inpatient Interventions: Admission Worksheet (ED) Last Done: 09/23/25 19:31 Discharge Date/Time: 09/23/25 20:43
[2025-09-23 11:08] LABS: Mean Corpuscular HGB Conc 34.4 g/dl (31.0-36.0); Mean Corpuscular Hemoglobin 33.3 pg (27.0-33.0); Mean Corpuscular Volume 97.0 fL (80.0-98.0); NRBC Abs Auto 0.000 X10*3/uL (0.0-0.012); NRBC Pct Auto 0.0 /100WBC (0.0-0.2); Platelet Count 202 X10*3/uL (160-400); Red Blood Count 1.65 X10*6/uL (4.60-5.80); White Blood Count 6.5 X10*3/uL (4.8-10.8)
[2025-09-23 11:09] LABS: Venous Blood Gas Refer to POC result
[2025-09-23 11:09] LABS: VBG HCO3 33 mmol/L (22-26)
[2025-09-23 11:16] LABS: Hemoglobin 5.5 g/dl (14.0-18.0)
[2025-09-23 11:17] LABS: Hematocrit 16.0 % (42.0-52.0); Partial Thromboplastin Time 30.9 SEC (26.7-34.1)
--- OUTSIDE RECORDS SUMMARY | 2025-09-23 11:21 | XMS_ITS | Clinical Summary ---
Author Organization [facility] Address [address] [place] [address] Phone Care Team Providers Care Human Resources Office Manager Name Role Phone Physician, No Pcp Primary [...] complete this topic Insurance [place] [phone] Care Teams Human Resources Office Manager Relationship Specialty Start Date End Date Physician, No Pcp PCP - General 10/11/24
[2025-09-23 11:25] LABS: Alanine Aminotransferase 10 U/L (0-40); Albumin Level 2.4 g/dL (3.5-5.0); Alkaline Phosphatase 157 U/L (39-117); Anion Gap 10 (12-20); Aspartate Amino Transferase 45 U/L (5-37); Blood Urea Nitrogen 12 mg/dL (9-16); Calcium 8.2 mg/dL (8.4-10.2); Carbon Dioxide 30 mmol/L (22-29); Chloride 98 mmol/L (96-108); Creatinine Clr Calc Pharmacy 78.3; Estimated Glomerular Filt Rate > 60; Lipase 25 U/L (8-78); Magnesium 1.6 mg/dL (1.6-2.6); Potassium 3.3 mmol/L (3.3-5.1); Sodium 135 mmol/L (135-145); Total Protein 5.3 g/dL (6.5-8.0)
[2025-09-23 11:26] LABS: NT Pro B Type Natriuretic Pept 703.5 pg/mL (<300); Troponin-I High Sensitivity 4.6 ng/L (<3.5-35.0)
[2025-09-23 12:02] LABS: Resp Syncy Virus RNA Qual PCR NEGATIVE (Negative); SARS COV2 PCR INHOUSE NEGATIVE (Negative)
[2025-09-23 12:55] LABS: INTERNATIONAL NORM RATIO 1.2 (0.9-1.1); Prothrombin Time 14.5 SEC (11.2-13.5)
[2025-09-23 12:57] LABS: Band Neutrophils Percent 2 % (3-5); Blast Percent 3 %; Blastocytes Absolute 0.2 X10*3/uL; Eosinophils Absolute Manual 0.1 X10*3/uL (0.0-0.4); Eosinophils Percent Manual 1 % (0-4); Lymphocytes Absolute Manual 1.3 X10*3/uL (1.2-4.9); Lymphocytes Percent Manual 20 % (20-40); Monocytes Absolute Manual 0.4 X10*3/uL (0.1-1.2); Monocytes Percent Manual 6 % (2-11); Neutrophils Absolute Manual 4.6 X10*3/uL (2.0-8.3); Neutrophils Percent Manual 68 % (45-73)
[2025-09-23 12:58] LABS: Burr Cells 1+ (0-2) /OIF; Hypochromasia 3+ (>30) /OIF
[2025-09-23 12:59] LABS: Ovalocytes 1+ (5-14) /OIF; Tear Drop Cells 1+ (0-2) /OIF
[2025-09-23 13:00] LABS: RBC Morphology NORMAL
[2025-09-23] MEDS: Furosemide 40 MG/4 ML VIAL IVPUSH (13:05)
[2025-09-23 13:16] LABS: OBS Int Ctl Valid YES; OBS1 NEGATIVE (NEGATIVE)
[2025-09-23 14:01] LABS: Appearance Urine Clear; Glucose Urine UA Negative (Negative); PH 7.0 (5.0-9.0); Specific Gravity - Urine <= 1.005 (1.005-1.025)
--- NOTE | 2025-09-23 14:09 | P.HPHOSP_ITS ---
History of Present Illness Date of Service: 09/23/25 Chief Complaint: Dyspnea 70 year old male with PMH Chronic Anemia and Lung Ca receiving Chemo therapy presenting to the ED with concerns for Dysnea on excertion. Patient reported dyspnea with short distances, symptoms became progressively worseover the last four days relieved with rest. Reports associated symptoms of weakness, dizziness, fast heart beating. He had been using his inhalors with no relief. He denies fever, chills, chest pain. In the ED HH was noted to be 5.5 / 16, transfused with 1 Unit PRBC, Occult stool neg, Pro BNP 703.5, EKG concerning for Afib patient denies history. CXR remarkable for known pulmonary mass in the right upper lobe, Patchy airspace disease in the right lower lung, suspicious for pneumonia. He was given dose of IV Lasix in the ER. He will be admitted for further management of acute mild CHF and symptomatic anemia. Review of Systems 2 Review of Systems: Denies any recent fever chills or decrease in appetite Respiratory See HPI Cardiovascular reports palpitations with exertion, denies chest pain Gastrointestinal denies any dysphagia abdominal pain nausea vomiting or diarrhea Genitourinary denies any dysuria frequency or hematuria Musculoskeletal Right hand swelling Neuropsych reports weakness with exertion, no seizures all other systems reviewed are negative [facility] Medical History (Updated 09/23/25 @ 14:35 by Brittany Cesar NP) Swelling of right hand Anemia in chronic illness Lung cancer COPD (chronic obstructive pulmonary disease) Pancreatic mass Lymphadenopathy Lung mass Nicotine dependence, cigarettes, uncomplicated SVT (supraventricular tachycardia) Edema Pressure ulcer Alcohol use disorder Cognitive disorder Rhabdomyolysis Hypertension Family History Father No problems noted. Mother Lung cancer Family/Other Lung cancer Throat cancer Surgical History History of colonoscopy History of lumbar laminectomy Social History Household Members: None Household Members Other:: pt lives alone Housing: Apartment Are you a primary home care scheduler to a significant other at home: No Do you presently have visiting nurse or other home services: No Alcohol intake: current Alcohol intake frequency: 0-2 drinks per day Alcohol type: beer Comment: camera not available Patient Tobacco Use Status: Current everyday Tobacco user Tobacco use type: Cigarette Cigarette Packs Per Day: 1 Years Smoked: (onset 16yo, 1-1.5ppd x 53yrs, 60+PYH) Smoked in Last 30 Days: Yes e-Cigarette/Vaping Use: Currently Using Second Hand Smoke Exposure: No Use of substances other than those prescribed or required for medical reasons: No Advance Directives: Yes Advance Directives on File: Yes Advance Directives Date on File: 12/14/22 Nutrition Risks: No Nutritional Risk service: No 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 COMPLEX 08/27/25 09/13/25 Unknown History ipratropium bromide 42 mcg (0.06 2 spray intranasal TI D PRN 08/27/25 09/13/25 Unknown History %) nasal spray allergies furosemide 20 mg tablet (Lasix) 20 mg PO DAILY Weight gain 09/23/25 09/23/25 09/22/25 History Physical Exam 2 Vital Signs and Narrative: Vital Signs: Last Vital Signs Temp 97.9 F 09/23/25 13:27 Pulse 93 09/23/25 13:27 Resp 16 09/23/25 13:27 BP 117/62 09/23/25 13:27 Pulse Ox 95 09/23/25 12:00 O2 Del Method Room Air 09/23/25 12:00 BMI result Body Mass Index 26.0 Appearing in no acute distress head is normocephalic atraumatic eyes pupils are PERRLA sclera is anicteric mouth throat mucous membranes are intact and moist neck is supple no lymphadenopathy, no JVD noted lung sounds rales heart regular rate rhythm, clear S1, S2, pitting edema right hand positive bowel sounds, abdomen is soft, nontender neuro patient is alert, oriented to person place and time, no focal deficits Results Labs 09/23/25 10:48 09/23/25 10:48 Labs: Laboratory Results - last 24 hr 09/23/25 09/23/25 09/23/25 10:48 10:51 11:05 MCV 97.0 MCH 33.3 H MCHC 34.4 RDW 23.0 H Plt Count 202 D MPV 10.6 Immature Gran % (Auto) Cancelled Neut % (Auto) Cancelled Lymph % (Auto) Cancelled [place] % (Auto) Cancelled Eos % (Auto) Cancelled Baso % (Auto) Cancelled Lymph # (Auto) Cancelled [place] # (Auto) Cancelled Eos # (Auto) Cancelled Baso # (Auto) Cancelled Abs Immat Gran (auto) Cancelled Absolute Neuts (auto) Cancelled Absolute Nucleated RBC 0.000 Nucleated RBC % (auto) 0.0 Neutrophils % (Manual) 68 Band Neutrophils % 2 L Lymphocytes % (Manual) 20 Monocytes % (Manual) 6 Eosinophils % (Manual) 1 Blast Cells % (Manual) 3 Abs Neuts (Manual) 4.6 Lymphocytes # (Manual) 1.3 Monocytes # (Manual) 0.4 Eosinophils # (Manual) 0.1 Blast Cells # 0.2 Platelet Estimate NORMAL Plt Morphology Comment NORMAL RBC Morphology NORMAL Hypochromasia 3+ (>30) Tear Drop Cells 1+ (0-2) Ovalocytes 1+ (5-14) Quynh Cells 1+ (0-2) PT 14.5 H INR 1.2 H APTT 30.9 VBG pH 7.51 H VBG pCO2 41 VBG pO2 39 VBG HCO3 33 H VBG O2 Saturation TNP VBG Base Excess 9.5 Anion Gap 10 L Estim Creat Clear Calc 78.3 Estimated GFR > 60 Random Glucose 87 Lactic Acid 1.2 Calcium 8.2 L Magnesium 1.6 Total Bilirubin 0.3 AST 45 H ALT 10 Alkaline Phosphatase 157 H Troponin I High Sens 4.6 D NT-Pro-B Natriuret Pep 703.5 H Total Protein 5.3 L Albumin 2.4 L Lipase 25 Urine Color Urine Appearance Urine pH Ur Specific [place] Urine Protein Urine Glucose (UA) Urine Ketones Urine Blood Urine Nitrite Ur Leukocyte Esterase Stool Occult Blood Influenza Type A (PCR) NEGATIVE Influenza Type B (PCR) NEGATIVE RSV RNA Qual (PCR) NEGATIVE SARS-CoV-2 RNA (RT-PCR) NEGATIVE Blood Type Antibody Screen Crossmatch 09/23/25 09/23/25 09/23/25 12:05 12:37 13:46 MCV MCH MCHC RDW Plt Count MPV Immature Gran % (Auto) Neut % (Auto) Lymph % (Auto) [place] % (Auto) Eos % (Auto) Baso % (Auto) Lymph # (Auto) [place] # (Auto) Eos # (Auto) Baso # (Auto) Abs Immat Gran (auto) Absolute Neuts (auto) Absolute Nucleated RBC Nucleated RBC % (auto) Neutrophils % (Manual) Band Neutrophils % Lymphocytes % (Manual) Monocytes % (Manual) Eosinophils % (Manual) Blast Cells % (Manual) Abs Neuts (Manual) Lymphocytes # (Manual) Monocytes # (Manual) Eosinophils # (Manual) Blast Cells # Platelet Estimate Plt Morphology Comment RBC Morphology Hypochromasia Tear Drop Cells Ovalocytes Quynh Cells PT INR APTT VBG pH VBG pCO2 VBG pO2 VBG HCO3 VBG O2 Saturation VBG Base Excess Anion Gap Estim Creat Clear Calc Estimated GFR Random Glucose Lactic Acid Calcium Magnesium Total Bilirubin AST ALT Alkaline Phosphatase Troponin I High Sens NT-Pro-B Natriuret Pep Total Protein Albumin Lipase Urine Color Yellow Urine Appearance Clear Urine pH 7.0 Ur Specific [place] <= 1.005 Urine Protein Negative Urine Glucose (UA) Negative Urine Ketones Negative Urine Blood Negative Urine Nitrite Negative Ur Leukocyte Esterase Negative Stool Occult Blood NEGATIVE Influenza Type A (PCR) Influenza Type B (PCR) RSV RNA Qual (PCR) SARS-CoV-2 RNA (RT-PCR) Blood Type A Positive Antibody Screen NEGATIVE Crossmatch See Detail Imaging Radiologist's Impressions: Impressions Chest X-Ray 09/23/25 11:01 IMPRESSION: 1. COPD. 2. Known pulmonary mass in the right upper lobe is partially obscured by a chest lead. 3. Patchy airspace disease in the right lower lung, suspicious for pneumonia. 4. Small layering effusions bilaterally with associated left base atelectasis. Electronically signed by: Paolo Quesada MD 09/23/2025 11:14 AM [facility] [place] Plan (1) Lung cancer: Qualifiers: Laterality: right Lung location: overlapping sites Qualified Code(s): C34.81 - Malignant neoplasm of overlapping sites of right bronchus and lung Status: Acute (2) Lung mass: Status: Acute (3) Hypertension: Qualifiers: Hypertension type: primary hypertension Qualified Code(s): I10 - Essential (primary) hypertension Status: Acute Plan 70 year old man admitted with symptomatic anemia and mild CHF Dyspnea on exertion secondary to anemia HH 5.03/08 Currently undergoing chemotherapy for lung cancer CXR remarkable for known pulmonary mass in the right upper lobe partially obscured monitor O2 saturation and administer supplemental O2 Occult stool Neg Received 1 unit PRBC in ED will repeat HH and transfuse if no improvement HTN Continue home medications COPD no exacerbation continue home inhalors History of atv-[id number] lung carcinoma Currently on chemotherapy [place] [facility] [place] Ppx Lovenox Code Status: Full Quality Stroke Does the patient have a stroke diagnosis?: No VTE Prior VTE?: No VTE Risk Level:: Medical - moderate - high VTE Device Contraindication: Treatment Not Indicated VTE Drug Contraindication: N/A - Med Ordered
--- NOTE | 2025-09-23 15:18 | PHA.MEDREC ---
Pharmacy Consult ? Medication Reconciliation Pharmacy has completed the medication reconciliation. spoke to patient to confirm medication list. Per patient, he takes furosemide 20 mg daily and he takes dexamethasone 4 mg bid the day before chemo and the day after chemo. Last dose of medications was yesterday 09/22/25.
--- NOTE | 2025-09-23 19:25 | HO.NURTONUR ---
70 year old male with PMH Chronic Anemia and Lung Ca receiving Chemo therapy presenting to the ED with concerns for Dysnea on excertion. Patient reported dyspnea with short distances, symptoms became progressively worseover the last four days relieved with rest. Reports associated symptoms of weakness, dizziness, fast heart beating. He had been using his inhalors with no relief. AAOx4, nad, VSS pt resting comfortably in the bed
--- NOTE | 2025-09-23 22:32 | PC.NURSE ---
Pt has orders for continuos cardiac monitoring and pulse ox. Pt found to have Afib in ED, no prior hx. No tele monitors available at this time. NATALYA Yusuf aware.
[2025-09-23] MEDS: 0.9 % Sodium Chloride Flush 3 ML SYRINGE IVFLUSH (23:42)
[2025-09-24] VITALS (17 sets, daily range): BP systolic 109–136; BP diastolic 57–74; PULSE 50–94; RESP 15–20; TEMP 36.1–37.2; O2SAT 92–97
--- NOTE | 2025-09-24 | ECG_ITS ---
Test Reason : abnormal HR on tele Blood Pressure : */* mmHG Vent. Rate : 61 BPM Atrial Rate : * BPM P-R Int : * ms QRS Dur : 94 ms QT Int : 450 ms P-R-T Axes : * 129 86 degrees QTcB Int : 453 ms Normal sinus rhythm probable Blocked Premature atrial complexes Lateral infarct , age undetermined Abnormal ECG When compared with ECG of 23-Sep-2025 09:28, Vent. rate has decreased by 30 bpm QRS axis Shifted right Lateral infarct is now Present Nonspecific T wave abnormality no longer evident in Inferior leads Nonspecific T wave abnormality, worse in Anterolateral leads Referred By: Rossy Yusuf Electronically Signed By: SERGIO GAN
[2025-09-24 05:44] LABS: Mean Corpuscular HGB Conc 34.2 g/dl (31.0-36.0); Mean Corpuscular Hemoglobin 32.5 pg (27.0-33.0); Mean Corpuscular Volume 95.0 fL (80.0-98.0); NRBC Abs Auto 0.020 X10*3/uL (0.0-0.012); NRBC Pct Auto 0.3 /100WBC (0.0-0.2); Platelet Count 210 X10*3/uL (160-400); Red Blood Count 2.00 X10*6/uL (4.60-5.80); White Blood Count 6.7 X10*3/uL (4.8-10.8)
[2025-09-24 05:49] LABS: Hematocrit 19.0 % (42.0-52.0); Hemoglobin 6.5 g/dl (14.0-18.0)
[2025-09-24 06:00] LABS: Anion Gap 12 (12-20); Blood Urea Nitrogen 14 mg/dL (9-16); Calcium 7.8 mg/dL (8.4-10.2); Carbon Dioxide 30 mmol/L (22-29); Chloride 101 mmol/L (96-108); Creatinine Clr Calc Pharmacy 76.8; Estimated Glomerular Filt Rate > 60; Potassium 3.5 mmol/L (3.3-5.1); Sodium 139 mmol/L (135-145)
[2025-09-24] MEDS: Fluticasone/Vilanterol 200/25 BLST.W.DEV 1 PUFF INHALE (08:37)
--- NOTE | 2025-09-24 08:58 | PM.IMHP ---
[facility] Medical History (Updated 09/23/25 @ 14:35 by Brittany Cesar NP) Swelling of right hand Anemia in chronic illness Lung cancer COPD (chronic obstructive pulmonary disease) Pancreatic mass Lymphadenopathy Lung mass Nicotine dependence, cigarettes, uncomplicated SVT (supraventricular tachycardia) Edema Pressure ulcer Alcohol use disorder Cognitive disorder Rhabdomyolysis Hypertension Family History Father No problems noted. Mother Lung cancer Family/Other Lung cancer Throat cancer Surgical History History of colonoscopy History of lumbar laminectomy Social History Household Members: None Household Members Other:: pt lives alone Housing: Apartment Are you a primary respiratory care instructor to a significant other at home: No Do you presently have visiting nurse or other home services: Yes ([facility] and PT) Alcohol intake: current Alcohol intake frequency: 0-2 drinks per day Alcohol type: beer Comment: camera not available Patient Tobacco Use Status: Current everyday Tobacco user Tobacco use type: Cigarette Cigarette Packs Per Day: 1 Cigarettes Per Day: 15 Years Smoked: (onset 16yo, 1-1.5ppd x 53yrs, 60+PYH) e-Cigarette/Vaping Use: Currently Using Second Hand Smoke Exposure: No Advance Directives Date on File: 12/14/22 service: No 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 identity: Male Cognitive needs: Yes (Cane) Hearing needs: No Vision needs: Yes (Glasses) Meds Allergies Allergy/AdvReac Type Severity Reaction Status Date / Time No Known Allergies Allergy Verified 09/23/25 09:19 Active Medications: Current Medications Acetaminophen (Acetaminophen 325 Mg Tablet) 650 mg PO Q6H PRN PRN Reason: Pain, Mild 1-3,fever,headache Albuterol/Ipratropium (Albuterol/Iprat 2.5/0.5mg 3 Ml Ampul.Neb) 3 ml INHALE RQ6H [facility] Amlodipine Besylate (Amlodipine Besylate 10 Mg Tablet) 10 mg PO DAILY [facility]; Protocol Calcium Carbonate (Calcium Carbonate 750 Mg Tab.Chew) 750 mg PO Q4H PRN PRN Reason: Heartburn Enoxaparin Sodium (Enoxaparin Sodium 40 Mg/0.4 Ml Syringe) 40 mg SUBCUT Q24H [facility] Last Admin: 09/23/25 17:28 Dose: 40 mg Fluticasone/Vilanterol (Fluticasone/Vilanterol 200/25 Blst.W.Dev) 1 puff INHALE RDAILY [facility] Last Admin: 09/24/25 08:37 Dose: 1 puff Folic Acid (Folic Acid 1 Mg Tablet) 1 mg PO DAILY [facility] Furosemide (Furosemide 20 Mg Tablet) 20 mg PO DAILY [facility]; Protocol Ipratropium [place] (Ipratropium [place] Osorio 0.06 % 15 Ml [place]) 2 spray NOSTRIL-B TID PRN PRN Reason: allergies Magnesium Hydroxide (Milk Of Magnesia 30 Ml Oral.Susp) 30 ml PO DAILY PRN PRN Reason: Constipation Melatonin (Melatonin 3 Mg Tablet) 6 mg PO BEDTIME PRN PRN Reason: Insomnia Ondansetron HCl (Ondansetron Hcl 4 Mg/2 Ml Vial) 4 mg IVPUSH Q8H PRN PRN Reason: Nausea and Vomiting Sodium Chloride (0.9 % Sodium Chloride Flush 3 Ml Syringe) 3 ml IVFLUSH QSHIFT [facility] Last Admin: 09/24/25 07:08 Dose: Not Given Home Medications ?Medication ?Instructions ?Recorded ?Confirmed ?Last Taken ?Type dexamethasone 4 mg tablet See Rx Instructions .Route .COMPLEX 08/27/25 09/23/25 Unknown History ipratropium bromide 42 mcg (0.06 2 spray intranasal TID PRN 08/27/25 09/23/25 Unknown History %) nasal spray allergies furosemide 20 mg tablet (Lasix) 20 mg PO DAILY Weight gain 09/23/25 09/23/25 09/22/25 History Physical Exam Vital Signs and Narrative: Vital Signs: Last Vital Signs Temp 97.9 F 09/24/25 07:54 Pulse 83 09/24/25 08:40 Resp 16 09/24/25 08:40 BP 115/57 L 09/24/25 07:54 Pulse Ox 96 09/24/25 07:54 O2 Del Method Nasal Cannula 09/24/25 07:54 O2 Flow Rate 1 09/24/25 07:54 BMI result Body Mass Index 25.8 Results Labs 09/24/25 05:35 09/24/25 05:35 Labs: Laboratory Results - last 24 hr 09/23/25 09/23/25 09/23/25 10:48 10:51 11:05 MCV 97.0 MCH 33.3 H MCHC 34.4 RDW 23.0 H Plt Count 202 D MPV 10.6 Immature Gran % (Auto) Cancelled Neut % (Auto) Cancelled Lymph % (Auto) Cancelled [place] % (Auto) Cancelled Eos % (Auto) Cancelled Baso % (Auto) Cancelled Lymph # (Auto) Cancelled [place] # (Auto) Cancelled Eos # (Auto) Cancelled Baso # (Auto) Cancelled Abs Immat Gran (auto) Cancelled Absolute Neuts (auto) Cancelled Absolute Nucleated RBC 0.000 Nucleated RBC % (auto) 0.0 Neutrophils % (Manual) 68 Band Neutrophils % 2 L Lymphocytes % (Manual) 20 Monocytes % (Manual) 6 Eosinophils % (Manual) 1 Blast Cells % (Manual) 3 Abs Neuts (Manual) 4.6 Lymphocytes # (Manual) 1.3 Monocytes # (Manual) 0.4 Eosinophils # (Manual) 0.1 Blast Cells # 0.2 Platelet Estimate NORMAL Plt Morphology Comment NORMAL RBC Morphology NORMAL Hypochromasia 3+ (>30) Tear Drop Cells 1+ (0-2) Ovalocytes 1+ (5-14) Quynh Cells 1+ (0-2) PT 14.5 H INR 1.2 H APTT 30.9 VBG pH 7.51 H VBG pCO2 41 VBG pO2 39 VBG HCO3 33 H VBG O2 Saturation TNP VBG Base Excess 9.5 Anion Gap 10 L Estim Creat Clear Calc 78.3 Estimated GFR > 60 Random Glucose 87 Lactic Acid 1.2 Calcium 8.2 L Magnesium 1.6 Total Bilirubin 0.3 AST 45 H ALT 10 Alkaline Phosphatase 157 H Troponin I High Sens 4.6 D NT-Pro-B Natriuret Pep 703.5 H Total Protein 5.3 L Albumin 2.4 L Lipase 25 Urine Color Urine Appearance Urine pH Ur Specific [place] Urine Protein Urine Glucose (UA) Urine Ketones Urine Blood Urine Nitrite Ur Leukocyte Esterase Stool Occult Blood Influenza Type A (PCR) NEGATIVE Influenza Type B (PCR) NEGATIVE RSV RNA Qual (PCR) NEGATIVE SARS-CoV-2 RNA (RT-PCR) NEGATIVE Blood Type Antibody Screen Crossmatch 09/23/25 09/23/25 09/23/25 12:05 12:37 13:46 MCV MCH MCHC RDW Plt Count MPV Immature Gran % (Auto) Neut % (Auto) Lymph % (Auto) [place] % (Auto) Eos % (Auto) Baso % (Auto) Lymph # (Auto) [place] # (Auto) Eos # (Auto) Baso # (Auto) Abs Immat Gran (auto) Absolute Neuts (auto) Absolute Nucleated RBC Nucleated RBC % (auto) Neutrophils % (Manual) Band Neutrophils % Lymphocytes % (Manual) Monocytes % (Manual) Eosinophils % (Manual) Blast Cells % (Manual) Abs Neuts (Manual) Lymphocytes # (Manual) Monocytes # (Manual) Eosinophils # (Manual) Blast Cells # Platelet Estimate Plt Morphology Comment RBC Morphology Hypochromasia Tear Drop Cells Ovalocytes [place] Cells PT INR APTT VBG pH VBG pCO2 VBG pO2 VBG HCO3 VBG O2 Saturation VBG Base Excess Anion Gap Estim Creat Clear Calc Estimated GFR Random Glucose Lactic Acid Calcium Magnesium Total Bilirubin AST ALT Alkaline Phosphatase Troponin I High Sens NT-Pro-B Natriuret Pep Total Protein Albumin Lipase Urine Color Yellow Urine Appearance Clear Urine pH 7.0 Ur Specific [place] <= 1.005 Urine Protein Negative Urine Glucose (UA) Negative Urine Ketones Negative Urine Blood Negative Urine Nitrite Negative Ur Leukocyte Esterase Negative Stool Occult Blood NEGATIVE Influenza Type A (PCR) Influenza Type B (PCR) RSV RNA Qual (PCR) SARS-CoV-2 RNA (RT-PCR) Blood Type A Positive Antibody Screen NEGATIVE Crossmatch See Detail 09/24/25 05:35 MCV 95.0 MCH 32.5 MCHC 34.2 RDW 21.6 H Plt Count 210 MPV 10.6 Immature Gran % (Auto) Neut % (Auto) Lymph % (Auto) [place] % (Auto) Eos % (Auto) Baso % (Auto) Lymph # (Auto) [place] # (Auto) Eos # (Auto) Baso # (Auto) Abs Immat Gran (auto) Absolute Neuts (auto) Absolute Nucleated RBC 0.020 H Nucleated RBC % (auto) 0.3 H Neutrophils % (Manual) Band Neutrophils % Lymphocytes % (Manual) Monocytes % (Manual) Eosinophils % (Manual) Blast Cells % (Manual) Abs Neuts (Manual) Lymphocytes # (Manual) Monocytes # (Manual) Eosinophils # (Manual) Blast Cells # Platelet Estimate Plt Morphology Comment RBC Morphology Hypochromasia Tear Drop Cells Ovalocytes [place] Cells PT INR APTT VBG pH VBG pCO2 VBG pO2 VBG HCO3 VBG O2 Saturation VBG Base Excess Anion Gap 12 Estim Creat Clear Calc 76.8 Estimated GFR > 60 Random Glucose 97 Lactic Acid Calcium 7.8 L Magnesium Total Bilirubin AST ALT Alkaline Phosphatase Troponin I High Sens NT-Pro-B Natriuret Pep Total Protein Albumin Lipase Urine Color Urine Appearance Urine pH Ur Specific [place] Urine Protein Urine Glucose (UA) Urine Ketones Urine Blood Urine Nitrite Ur Leukocyte Esterase Stool Occult Blood Influenza Type A (PCR) Influenza Type B (PCR) RSV RNA Qual (PCR) SARS-CoV-2 RNA (RT-PCR) Blood Type Antibody Screen Crossmatch Imaging Radiologist's Impressions: Impressions Chest X-Ray 09/23/25 11:01 IMPRESSION: 1. COPD. 2. Known pulmonary mass in the right upper lobe is partially obscured by a chest lead. 3. Patchy airspace disease in the right lower lung, suspicious for pneumonia. 4. Small layering effusions bilaterally with associated left base atelectasis. Electronically signed by: Paolo Quesada MD 09/23/2025 11:14 AM [facility] Quality Stroke Does the patient have a stroke diagnosis?: No VTE Prior VTE?: No VTE Risk Level:: Medical - moderate - high VTE Device Contraindication: Treatment Not Indicated VTE Drug Contraindication: N/A - Med Ordered
--- NOTE | 2025-09-24 09:13 | P.PNIM_ITS ---
Subjective Subjective Date of Service: 09/24/25 Interval History: Follow up anemia Feeling better today HH noted to be low today Review of Systems Denies any recent fever chills or decrease in appetite Respiratory denies SOB Cardiovascular denies chest pain Gastrointestinal denies any dysphagia abdominal pain nausea vomiting or diarrhea Genitourinary denies any dysuria frequency or hematuria Musculoskeletal Right hand swelling Neuropsych? reports weakness with exertion, no seizures all other systems reviewed are negative Physical Exam 2 Exam: Exam: Appearing in no acute distress head is normocephalic atraumatic eyes pupils are PERRLA sclera is anicteric mouth throat mucous membranes are intact and moist neck is supple no lymphadenopathy, no JVD noted lung sounds rales heart regular rate rhythm, clear? S1, S2, pitting edema right hand positive bowel sounds, abdomen is soft, nontender neuro patient is alert, oriented to person place and time, no focal deficits Vital Signs: Vital Signs: Last Vital Signs Temp 97.9 F 09/24/25 07:54 Pulse 83 09/24/25 08:40 Resp 16 09/24/25 08:40 BP 115/57 L 09/24/25 07:54 Pulse Ox 96 09/24/25 07:54 O2 Del Method Nasal Cannula 09/24/25 07:54 O2 Flow Rate 1 09/24/25 07:54 BMI result Body Mass Index 25.8 Objective Data Active Medications Acetaminophen (Acetaminophen 325 Mg Tablet) 650 mg PO Q6H PRN PRN Reason: Pain, Mild 1-3,fever,headache Albuterol/Ipratropium (Albuterol/Iprat 2.5/0.5mg 3 Ml Ampul.Neb) 3 ml INHALE RQ6H [facility] Amlodipine Besylate (Amlodipine Besylate 10 Mg Tablet) 10 mg PO DAILY [facility]; Protocol Calcium Carbonate (Calcium Carbonate 750 Mg Tab.Chew) 750 mg PO Q4H PRN PRN Reason: Heartburn Enoxaparin Sodium (Enoxaparin Sodium 40 Mg/0.4 Ml Syringe) 40 mg SUBCUT Q24H [facility] Last Admin: 09/23/25 17:28 Dose: 40 mg Documented By: CAMILO Fluticasone/Vilanterol (Fluticasone/Vilanterol 200/25 Blst.W.Dev) 1 puff INHALE RDAILY [facility] Last Admin: 09/24/25 08:37 Dose: 1 puff Documented By: YVETTE Folic Acid (Folic Acid 1 Mg Tablet) 1 mg PO DAILY [facility] Furosemide (Furosemide 20 Mg Tablet) 20 mg PO DAILY [facility]; Protocol Ipratropium [place] (Ipratropium [place] Osorio 0.06 % 15 Ml [place]) 2 spray NOSTRIL-B TID PRN PRN Reason: allergies Magnesium Hydroxide (Milk Of Magnesia 30 Ml Oral.Susp) 30 ml PO DAILY PRN PRN Reason: Constipation Melatonin (Melatonin 3 Mg Tablet) 6 mg PO BEDTIME PRN PRN Reason: Insomnia Ondansetron HCl (Ondansetron Hcl 4 Mg/2 Ml Vial) 4 mg IVPUSH Q8H PRN PRN Reason: Nausea and Vomiting Sodium Chloride (0.9 % Sodium Chloride Flush 3 Ml Syringe) 3 ml IVFLUSH QSHIFT [facility] Last Admin: 09/24/25 07:08 Dose: Not Given Documented By: WILLIE Non-Admin Reason: IV Running Labs 09/24/25 05:35 09/24/25 05:35 Labs: Laboratory Results - last 24 hr 09/23/25 09/23/25 09/23/25 10:48 10:51 11:05 MCV 97.0 MCH 33.3 H MCHC 34.4 RDW 23.0 H Plt Count 202 D MPV 10.6 Immature Gran % (Auto) Cancelled Neut % (Auto) Cancelled Lymph % (Auto) Cancelled [place] % (Auto) Cancelled Eos % (Auto) Cancelled Baso % (Auto) Cancelled Lymph # (Auto) Cancelled [place] # (Auto) Cancelled Eos # (Auto) Cancelled Baso # (Auto) Cancelled Abs Immat Gran (auto) Cancelled Absolute Neuts (auto) Cancelled Absolute Nucleated RBC 0.000 Nucleated RBC % (auto) 0.0 Neutrophils % (Manual) 68 Band Neutrophils % 2 L Lymphocytes % (Manual) 20 Monocytes % (Manual) 6 Eosinophils % (Manual) 1 Blast Cells % (Manual) 3 Abs Neuts (Manual) 4.6 Lymphocytes # (Manual) 1.3 Monocytes # (Manual) 0.4 Eosinophils # (Manual) 0.1 Blast Cells # 0.2 Platelet Estimate NORMAL Plt Morphology Comment NORMAL RBC Morphology NORMAL Hypochromasia 3+ (>30) Tear Drop Cells 1+ (0-2) Ovalocytes 1+ (5-14) Quynh Cells 1+ (0-2) PT 14.5 H INR 1.2 H APTT 30.9 VBG pH 7.51 H VBG pCO2 41 VBG pO2 39 VBG HCO3 33 H VBG O2 Saturation TNP VBG Base Excess 9.5 Anion Gap 10 L Estim Creat Clear Calc 78.3 Estimated GFR > 60 Random Glucose 87 Lactic Acid 1.2 Calcium 8.2 L Magnesium 1.6 Total Bilirubin 0.3 AST 45 H ALT 10 Alkaline Phosphatase 157 H Troponin I High Sens 4.6 D NT-Pro-B Natriuret Pep 703.5 H Total Protein 5.3 L Albumin 2.4 L Lipase 25 Urine Color Urine Appearance Urine pH Ur Specific [place] Urine Protein Urine Glucose (UA) Urine Ketones Urine Blood Urine Nitrite Ur Leukocyte Esterase Stool Occult Blood Influenza Type A (PCR) NEGATIVE Influenza Type B (PCR) NEGATIVE RSV RNA Qual (PCR) NEGATIVE SARS-CoV-2 RNA (RT-PCR) NEGATIVE Blood Type Antibody Screen Crossmatch 09/23/25 09/23/25 09/23/25 12:05 12:37 13:46 MCV MCH MCHC RDW Plt Count MPV Immature Gran % (Auto) Neut % (Auto) Lymph % (Auto) [place] % (Auto) Eos % (Auto) Baso % (Auto) Lymph # (Auto) [place] # (Auto) Eos # (Auto) Baso # (Auto) Abs Immat Gran (auto) Absolute Neuts (auto) Absolute Nucleated RBC Nucleated RBC % (auto) Neutrophils % (Manual) Band Neutrophils % Lymphocytes % (Manual) Monocytes % (Manual) Eosinophils % (Manual) Blast Cells % (Manual) Abs Neuts (Manual) Lymphocytes # (Manual) Monocytes # (Manual) Eosinophils # (Manual) Blast Cells # Platelet Estimate Plt Morphology Comment RBC Morphology Hypochromasia Tear Drop Cells Ovalocytes [place] Cells PT INR APTT VBG pH VBG pCO2 VBG pO2 VBG HCO3 VBG O2 Saturation VBG Base Excess Anion Gap Estim Creat Clear Calc Estimated GFR Random Glucose Lactic Acid Calcium Magnesium Total Bilirubin AST ALT Alkaline Phosphatase Troponin I High Sens NT-Pro-B Natriuret Pep Total Protein Albumin Lipase Urine Color Yellow Urine Appearance Clear Urine pH 7.0 Ur Specific [place] <= 1.005 Urine Protein Negative Urine Glucose (UA) Negative Urine Ketones Negative Urine Blood Negative Urine Nitrite Negative Ur Leukocyte Esterase Negative Stool Occult Blood NEGATIVE Influenza Type A (PCR) Influenza Type B (PCR) RSV RNA Qual (PCR) SARS-CoV-2 RNA (RT-PCR) Blood Type A Positive Antibody Screen NEGATIVE Crossmatch See Detail 09/24/25 05:35 MCV 95.0 MCH 32.5 MCHC 34.2 RDW 21.6 H Plt Count 210 MPV 10.6 Immature Gran % (Auto) Neut % (Auto) Lymph % (Auto) [place] % (Auto) Eos % (Auto) Baso % (Auto) Lymph # (Auto) [place] # (Auto) Eos # (Auto) Baso # (Auto) Abs Immat Gran (auto) Absolute Neuts (auto) Absolute Nucleated RBC 0.020 H Nucleated RBC % (auto) 0.3 H Neutrophils % (Manual) Band Neutrophils % Lymphocytes % (Manual) Monocytes % (Manual) Eosinophils % (Manual) Blast Cells % (Manual) Abs Neuts (Manual) Lymphocytes # (Manual) Monocytes # (Manual) Eosinophils # (Manual) Blast Cells # Platelet Estimate Plt Morphology Comment RBC Morphology Hypochromasia Tear Drop Cells Ovalocytes [place] Cells PT INR APTT VBG pH VBG pCO2 VBG pO2 VBG HCO3 VBG O2 Saturation VBG Base Excess Anion Gap 12 Estim Creat Clear Calc 76.8 Estimated GFR > 60 Random Glucose 97 Lactic Acid Calcium 7.8 L Magnesium Total Bilirubin AST ALT Alkaline Phosphatase Troponin I High Sens NT-Pro-B Natriuret Pep Total Protein Albumin Lipase Urine Color Urine Appearance Urine pH Ur Specific [place] Urine Protein Urine Glucose (UA) Urine Ketones Urine Blood Urine Nitrite Ur Leukocyte Esterase Stool Occult Blood Influenza Type A (PCR) Influenza Type B (PCR) RSV RNA Qual (PCR) SARS-CoV-2 RNA (RT-PCR) Blood Type Antibody Screen Crossmatch Assessment and Plan (1) Hypertension: Status: Acute Plan 70 year old man admitted with symptomatic anemia and mild CHF Dyspnea on exertion secondary to anemia HH today 6.5/19.0 Currently undergoing chemotherapy for lung cancer CXR remarkable for known pulmonary mass in the right upper lobe monitor O2 saturation and administer supplemental O2 Occult stool Neg Received 4 unit PRBC this admission Transfuse 2 units today Mild HFpEF on home dose of lasix HTN Continue home medications COPD no exacerbation continue home inhalors History of [id number] lung carcinoma Currently on chemotherapy [place] [facility] [place] DVT Ppx Lovenox Code Status: Full Quality Stroke Does the patient have a stroke diagnosis?: No VTE Prior VTE?: No VTE Risk Level:: Medical - moderate - high VTE Device Contraindication: Treatment Not Indicated VTE Drug Contraindication: N/A - Med Ordered
--- NOTE | 2025-09-24 09:17 | HO.PM.IMPN ---
Subjective Subjective Date of Service: 09/24/25 Physical Exam Vital Signs: Vital Signs: Last Vital Signs Temp 97.9 F 09/24/25 07:54 Pulse 83 09/24/25 08:40 Resp 16 09/24/25 08:40 BP 115/57 L 09/24/25 07:54 Pulse Ox 96 09/24/25 07:54 O2 Del Method Nasal Cannula 09/24/25 07:54 O2 Flow Rate 1 09/24/25 07:54 BMI result Body Mass Index 25.8 Objective Data Active Medications Acetaminophen (Acetaminophen 325 Mg Tablet) 650 mg PO Q6H PRN PRN Reason: Pain, Mild 1-3,fever,headache Albuterol/Ipratropium (Albuterol/Iprat 2.5/0.5mg 3 Ml Ampul.Neb) 3 ml INHALE RQ6H [facility] Amlodipine Besylate (Amlodipine Besylate 10 Mg Tablet) 10 mg PO DAILY [facility]; Protocol Calcium Carbonate (Calcium Carbonate 750 Mg Tab.Chew) 750 mg PO Q4H PRN PRN Reason: Heartburn Enoxaparin Sodium (Enoxaparin Sodium 40 Mg/0.4 Ml Syringe) 40 mg SUBCUT Q24H [facility] Last Admin: 09/23/25 17:28 Dose: 40 mg Documented By: CAMILO Fluticasone/Vilanterol (Fluticasone/Vilanterol 200/25 Blst.W.Dev) 1 puff INHALE RDAILY [facility] Last Admin: 09/24/25 08:37 Dose: 1 puff Documented By: YVETTE Folic Acid (Folic Acid 1 Mg Tablet) 1 mg PO DAILY [facility] Furosemide (Furosemide 20 Mg Tablet) 20 mg PO DAILY [facility]; Protocol Ipratropium [place] (Ipratropium [place] Osorio 0.06 % 15 Ml [place] [employer]) 2 spray NOSTRIL-B TID PRN PRN Reason: allergies Magnesium Hydroxide (Milk Of Magnesia 30 Ml Oral.Susp) 30 ml PO DAILY PRN PRN Reason: Constipation Melatonin (Melatonin 3 Mg Tablet) 6 mg PO BEDTIME PRN PRN Reason: Insomnia Ondansetron HCl (Ondansetron Hcl 4 Mg/2 Ml Vial) 4 mg IVPUSH Q8H PRN PRN Reason: Nausea and Vomiting Sodium Chloride (0.9 % Sodium Chloride Flush 3 Ml Syringe) 3 ml IVFLUSH QSHIFT [facility] Last Admin: 09/24/25 07:08 Dose: Not Given Documented By: WILLIE Non-Admin Reason: IV Running Labs 09/24/25 05:35 09/24/25 05:35 Labs: Laboratory Results - last 24 hr 09/23/25 09/23/25 09/23/25 10:48 10:51 11:05 MCV 97.0 MCH 33.3 H MCHC 34.4 RDW 23.0 H Plt Count 202 D MPV 10.6 Immature Gran % (Auto) Cancelled Neut % (Auto) Cancelled Lymph % (Auto) Cancelled [place] % (Auto) Cancelled Eos % (Auto) Cancelled Baso % (Auto) Cancelled Lymph # (Auto) Cancelled [place] # (Auto) Cancelled Eos # (Auto) Cancelled Baso # (Auto) Cancelled Abs Immat Gran (auto) Cancelled Absolute Neuts (auto) Cancelled Absolute Nucleated RBC 0.000 Nucleated RBC % (auto) 0.0 Neutrophils % (Manual) 68 Band Neutrophils % 2 L Lymphocytes % (Manual) 20 Monocytes % (Manual) 6 Eosinophils % (Manual) 1 Blast Cells % (Manual) 3 Abs Neuts (Manual) 4.6 Lymphocytes # (Manual) 1.3 Monocytes # (Manual) 0.4 Eosinophils # (Manual) 0.1 Blast Cells # 0.2 Platelet Estimate NORMAL Plt Morphology Comment NORMAL RBC Morphology NORMAL Hypochromasia 3+ (>30) Tear Drop Cells 1+ (0-2) Ovalocytes 1+ (5-14) [place] Cells 1+ (0-2) PT 14.5 H INR 1.2 H APTT 30.9 VBG pH 7.51 H VBG pCO2 41 VBG pO2 39 VBG HCO3 33 H VBG O2 Saturation TNP VBG Base Excess 9.5 Anion Gap 10 L Estim Creat Clear Calc 78.3 Estimated GFR > 60 Random Glucose 87 Lactic Acid 1.2 Calcium 8.2 L Magnesium 1.6 Total Bilirubin 0.3 AST 45 H ALT 10 Alkaline Phosphatase 157 H Troponin I High Sens 4.6 D NT-Pro-B Natriuret Pep 703.5 H Total Protein 5.3 L Albumin 2.4 L Lipase 25 Urine Color Urine Appearance Urine pH Ur Specific [place] Urine Protein Urine Glucose (UA) Urine Ketones Urine Blood Urine Nitrite Ur Leukocyte Esterase Stool Occult Blood Influenza Type A (PCR) NEGATIVE Influenza Type B (PCR) NEGATIVE RSV RNA Qual (PCR) NEGATIVE SARS-CoV-2 RNA (RT-PCR) NEGATIVE Blood Type Antibody Screen Crossmatch 09/23/25 09/23/25 09/23/25 12:05 12:37 13:46 MCV MCH MCHC RDW Plt Count MPV Immature Gran % (Auto) Neut % (Auto) Lymph % (Auto) [place] % (Auto) Eos % (Auto) Baso % (Auto) Lymph # (Auto) [place] # (Auto) Eos # (Auto) Baso # (Auto) Abs Immat Gran (auto) Absolute Neuts (auto) Absolute Nucleated RBC Nucleated RBC % (auto) Neutrophils % (Manual) Band Neutrophils % Lymphocytes % (Manual) Monocytes % (Manual) Eosinophils % (Manual) Blast Cells % (Manual) Abs Neuts (Manual) Lymphocytes # (Manual) Monocytes # (Manual) Eosinophils # (Manual) Blast Cells # Platelet Estimate Plt Morphology Comment RBC Morphology Hypochromasia Tear Drop Cells Ovalocytes Quynh Cells PT INR APTT VBG pH VBG pCO2 VBG pO2 VBG HCO3 VBG O2 Saturation VBG Base Excess Anion Gap Estim Creat Clear Calc Estimated GFR Random Glucose Lactic Acid Calcium Magnesium Total Bilirubin AST ALT Alkaline Phosphatase Troponin I High Sens NT-Pro-B Natriuret Pep Total Protein Albumin Lipase Urine Color Yellow Urine Appearance Clear Urine pH 7.0 Ur Specific [place] <= 1.005 Urine Protein Negative Urine Glucose (UA) Negative Urine Ketones Negative Urine Blood Negative Urine Nitrite Negative Ur Leukocyte Esterase Negative Stool Occult Blood NEGATIVE Influenza Type A (PCR) Influenza Type B (PCR) RSV RNA Qual (PCR) SARS-CoV-2 RNA (RT-PCR) Blood Type A Positive Antibody Screen NEGATIVE Crossmatch See Detail 09/24/25 05:35 MCV 95.0 MCH 32.5 MCHC 34.2 RDW 21.6 H Plt Count 210 MPV 10.6 Immature Gran % (Auto) Neut % (Auto) Lymph % (Auto) [place] % (Auto) Eos % (Auto) Baso % (Auto) Lymph # (Auto) [place] # (Auto) Eos # (Auto) Baso # (Auto) Abs Immat Gran (auto) Absolute Neuts (auto) Absolute Nucleated RBC 0.020 H Nucleated RBC % (auto) 0.3 H Neutrophils % (Manual) Band Neutrophils % Lymphocytes % (Manual) Monocytes % (Manual) Eosinophils % (Manual) Blast Cells % (Manual) Abs Neuts (Manual) Lymphocytes # (Manual) Monocytes # (Manual) Eosinophils # (Manual) Blast Cells # Platelet Estimate Plt Morphology Comment RBC Morphology Hypochromasia Tear Drop Cells Ovalocytes [place] Cells PT INR APTT VBG pH VBG pCO2 VBG pO2 VBG HCO3 VBG O2 Saturation VBG Base Excess Anion Gap 12 Estim Creat Clear Calc 76.8 Estimated GFR > 60 Random Glucose 97 Lactic Acid Calcium 7.8 L Magnesium Total Bilirubin AST ALT Alkaline Phosphatase Troponin I High Sens NT-Pro-B Natriuret Pep Total Protein Albumin Lipase Urine Color Urine Appearance Urine pH Ur Specific [place] Urine Protein Urine Glucose (UA) Urine Ketones Urine Blood Urine Nitrite Ur Leukocyte Esterase Stool Occult Blood Influenza Type A (PCR) Influenza Type B (PCR) RSV RNA Qual (PCR) SARS-CoV-2 RNA (RT-PCR) Blood Type Antibody Screen Crossmatch Quality Stroke Does the patient have a stroke diagnosis?: No VTE Prior VTE?: No VTE Risk Level:: Medical - moderate - high VTE Device Contraindication: Treatment Not Indicated VTE Drug Contraindication: N/A - Med Ordered
[2025-09-24] MEDS: Albuterol/Iprat 2.5/0.5MG 3 ML AMPUL.NEB INHALE (11:47)
--- NOTE | 2025-09-24 11:55 | MHC.CM.PN ---
pt is active with with [facility] for sn and pt pt lives alone and has own janell jerome plan ho,me
[2025-09-24 15:02] LABS: Hematocrit 26.8 % (42.0-52.0); Hemoglobin 9.1 g/dl (14.0-18.0)
--- NOTE | 2025-09-24 15:12 | HO.WOUND ---
Wound Consult: Initial 70 yr old admitted to [facility] on 09/23/25 - See progress notes and H&P for detailed history. Wound consult placed for right arm skin tear. Patient agreeable to assessment and photo documentation. Right arm Etiology: Skin tear Measurements: 2cm x 1cm x 0.1cm Wound Bed: moist pink Drainage / Odor: scant serosanguineous - no odor Yesenia wound: ? No Induration, Fluctuance or Warmth noted Goals of Treatment: ? moist healing with xeroform Recommendations: Right forearm: cleanse with saline, pat dry, apply skin prep yesenia wound, apply xeroform, cover with foam, change daily and PRN Re-consult wound care Nurse for wound deterioration or wound changes.
[2025-09-24] MEDS: 0.9 % Sodium Chloride Flush 3 ML SYRINGE IVFLUSH ×2 (15:46→21:51)
--- NOTE | 2025-09-24 22:04 | PC.NURSE ---
At 21:01 This RN received a [place] from [facility] that pt had 3BVTs then converted back to NSR. Pt denies chest pain or SOB. Asymptomatic. No complaints at this time. PA Paramjit notified via [place], per PA continue to monitor. Pt resting in bed, call dobson within reach, safety measures in place.
--- NOTE | 2025-09-24 23:11 | PM.EVENT ---
Event Note Date of Service: 09/24/25 Event Note: pt noted to have new onset a fib. rate controlled in the 70s currently. on lovenox. continue to monitor on tele. cardiology consult placed. Time Spent With Patient Time: Total time managing care of this patient today ____ minutes.
--- NOTE | 2025-09-24 23:12 | PC.NURSE ---
At 20:25 this RN received [place] from [facility] that pt is having arrhythmias and his HR keeps fluctuating. Upon assessment, pt is asymptomatic. Pt denies chest pain or SOB. Pt has no complaints at this time. Temp 97.7, HR range 48-90, BP 109/59, 18 RR, 93% O2 sat on 1L NC. PA Paramjit notified via [place] text. EKG ordered and obtained, results sent to PA. Per PA continue to monitor because HR is controlled and pt is asymptomatic. PA requested to be contacted if pt's HR goes below 35 or above 120bpm. Cardiology consult ordered. Pt resting in bed, call dobson within reach, safety measures in place.
[2025-09-25] VITALS (8 sets, daily range): BP systolic 116–133; BP diastolic 58–69; PULSE 86–102; RESP 14–19; TEMP 36.4–37; O2SAT 94–98
[2025-09-25 06:15] LABS: Hematocrit 25.8 % (42.0-52.0); Hemoglobin 8.9 g/dl (14.0-18.0); Mean Corpuscular HGB Conc 34.5 g/dl (31.0-36.0); Mean Corpuscular Hemoglobin 31.4 pg (27.0-33.0); Mean Corpuscular Volume 91.2 fL (80.0-98.0); NRBC Abs Auto 0.020 X10*3/uL (0.0-0.012); NRBC Pct Auto 0.3 /100WBC (0.0-0.2); Platelet Count 215 X10*3/uL (160-400); Red Blood Count 2.83 X10*6/uL (4.60-5.80); White Blood Count 6.9 X10*3/uL (4.8-10.8)
[2025-09-25] MEDS: Fluticasone/Vilanterol 200/25 BLST.W.DEV 1 PUFF INHALE (08:06)
[2025-09-25] MEDS: 0.9 % Sodium Chloride Flush 3 ML SYRINGE IVFLUSH ×3 (09:27→19:34)
[2025-09-25] MEDS: Albuterol/Iprat 2.5/0.5MG 3 ML AMPUL.NEB INHALE (11:53)
--- NOTE | 2025-09-25 12:21 | HO.PM.IMPN ---
Subjective Subjective Date of Service: 09/25/25 Interval History: Patient seen examined at bedside this morning, patient mentioned that he gets short of breath with mild exertion, hemoglobin improved to 8.9. No AFib noted on EKG. Review of Systems Review of Systems: Yes all other systems are reviewed and are negative Physical Exam Exam: Exam: General: AxOx3, mild acute respiratory distress Head: AT/NC ENT: Moist mucous membranes Neck: supple CVS; RRR, S1 S2 normal Lungs: Clear bilateral breath sounds, no wheezes or crackles Abd: Soft non tender, non distended Ext: No edema and no calf tenderness MSK: moving all 4 limbs Skin: No cyanosis or edema Psych: Cooperative with exam Neurology: no focal deficit Vital Signs: Vital Signs: Last Vital Signs Temp 97.6 F 09/25/25 07:56 Pulse 92 09/25/25 11:54 Resp 18 09/25/25 11:54 BP 133/62 09/25/25 09:28 Pulse Ox 96 09/25/25 07:56 O2 Del Method Nasal Cannula 09/25/25 07:56 O2 Flow Rate 1 09/25/25 07:56 BMI result Body Mass Index 25.8 Objective Data Active Medications Acetaminophen (Acetaminophen 325 Mg Tablet) 650 mg PO Q6H PRN PRN Reason: Pain, Mild 1-3,fever,headache Albuterol/Ipratropium (Albuterol/Iprat 2.5/0.5mg 3 Ml Ampul.Neb) 3 ml INHALE RQ6H [facility] Last Admin: 09/25/25 11:53 Dose: 3 ml Documented By: YVETTE Amlodipine Besylate (Amlodipine Besylate 10 Mg Tablet) 10 mg PO DAILY [facility]; Protocol Last Admin: 09/25/25 09:28 Dose: 10 mg Documented By: BLANCA Calcium Carbonate (Calcium Carbonate 750 Mg Tab.Chew) 750 mg PO Q4H PRN PRN Reason: Heartburn Enoxaparin Sodium (Enoxaparin Sodium 40 Mg/0.4 Ml Syringe) 40 mg SUBCUT Q24H [facility] Last Admin: 09/24/25 15:43 Dose: 40 mg Documented By: WILLIE Fluticasone/Vilanterol (Fluticasone/Vilanterol 200/25 Blst.W.Dev) 1 puff INHALE RDAILY [facility] Last Admin: 09/25/25 08:06 Dose: 1 puff Documented By: YVETTE Folic Acid (Folic Acid 1 Mg Tablet) 1 mg PO DAILY [facility] Last Admin: 09/25/25 09:27 Dose: 1 mg Documented By: BLANCA Furosemide (Furosemide 20 Mg Tablet) 20 mg PO DAILY [facility]; Protocol Last Admin: 09/25/25 09:29 Dose: 20 mg Documented By: BLANCA Ipratropium [place] (Ipratropium [place] Osorio 0.06 % 15 Ml [place]) 2 spray NOSTRIL-B TID PRN PRN Reason: allergies Magnesium Hydroxide (Milk Of Magnesia 30 Ml Oral.Susp) 30 ml PO DAILY PRN PRN Reason: Constipation Melatonin (Melatonin 3 Mg Tablet) 6 mg PO BEDTIME PRN PRN Reason: Insomnia Ondansetron HCl (Ondansetron Hcl 4 Mg/2 Ml Vial) 4 mg IVPUSH Q8H PRN PRN Reason: Nausea and Vomiting Sodium Chloride (0.9 % Sodium Chloride Flush 3 Ml Syringe) 3 ml IVFLUSH QSHIFT [facility] Last Admin: 09/25/25 09:27 Dose: 3 ml Documented By: BLANCA Labs 09/25/25 05:26 09/24/25 05:35 Labs: Laboratory Results - last 24 hr 09/23/25 09/23/25 09/25/25 10:48 12:05 05:26 MCV 91.2 MCH 31.4 MCHC 34.5 RDW 20.6 H Plt Count 215 MPV 10.2 Absolute Nucleated RBC 0.020 H Nucleated RBC % (auto) 0.3 H Smear Path Review SEE NOTE Crossmatch See Detail Microbiology Microbiology Results: Microbiology 09/23/25 10:54 Blood Culture - Preliminary Blood - Venous No growth after 24 hours. 09/23/25 10:51 Blood Culture - Preliminary Blood - Venous No growth after 24 hours. 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 Required 4 units of packed red blood cells on 09/23, 2 units on 09/24. At this time patient with shortness of breath on minimal exertion. Acute hypoxic respiratory failure, likely multifactorial in origin, improving after blood transfusion. -Hemoglobin on admission 5.5, on 09/24 6.5, on 09/25 8.9 -chest x-ray with pulmonary mass and right upper lobe -status post 6 units of packed red blood cells since admission -Monitor for any signs of bleeding, we will transfuse for hemoglobin less than 7 -monitor and titrate oxygen for SpO2 greater than 90%. Mild HFpEF on home dose of lasix HTN, chronic -continue amlodipine, Lasix, monitor adjust medications accordingly COPD -continue with nebulizing treatments and home inhalers -monitor and titrate oxygen for SpO2 greater than 90% as stated above. [id number] lung carcinoma with metastasis currently on chemotherapy 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 -imaging reviewed -continue per [facility] Oncology recommendations -monitor for any signs of worsening shortness of breath, hemoptysis Ambulatory dysfunction Generalized weakness -PT/OT consulted DVT Ppx Lovenox Code Status: Full Disposition: All questions and concerns with the patient were answered to satisfaction. All pertinent clinical documents, images and labs were reviewed. DISCLAIMER: This document was created using voice recognition software. Any mistakes in the prescription are unintentional. An attempt was made to focus for accuracy, but to expedite availability, some errors may persist. Please contact with any need for correction or further clarification Total time managing care of this patient today: 55 minutes. Quality Stroke Does the patient have a stroke diagnosis?: No VTE Prior VTE?: No VTE Risk Level:: Medical - moderate - high VTE Device Contraindication: Treatment Not Indicated VTE Drug Contraindication: N/A - Med Ordered
--- NOTE | 2025-09-25 14:42 | MHC.CM.PN ---
per rounds awaiting pt eval to determine disposition home w/servces vs str
[2025-09-26 03:31] VITALS: BP 110/57; PULSE 92; RESP 16; TEMP 36.7; O2SAT 93
[2025-09-26 07:21] VITALS: BP 119/61; PULSE 87; RESP 16; TEMP 36.6; O2SAT 93
[2025-09-26] MEDS: 0.9 % Sodium Chloride Flush 3 ML SYRINGE IVFLUSH ×3 (07:49→20:16)
[2025-09-26] MEDS: Fluticasone/Vilanterol 200/25 BLST.W.DEV 1 PUFF INHALE (08:02)
[2025-09-26 08:04] VITALS: PULSE 49; RESP 16; O2SAT 91
[2025-09-26 08:36] LABS: MANUAL DIFF FLAG NO
[2025-09-26 08:37] LABS: Hematocrit 28.3 % (42.0-52.0); Hemoglobin 9.8 g/dl (14.0-18.0); Imm Gran Abs Auto 0.30 X10*3/uL (0.00-0.03); Imm Gran Pct Auto 3.3 % (0.0-0.4); Lymphocytes Absolute Auto 1.8 X10*3/uL (1.2-4.9); Mean Corpuscular HGB Conc 34.6 g/dl (31.0-36.0); Mean Corpuscular Hemoglobin 31.8 pg (27.0-33.0); Mean Corpuscular Volume 91.9 fL (80.0-98.0); NRBC Abs Auto 0.020 X10*3/uL (0.0-0.012); NRBC Pct Auto 0.2 /100WBC (0.0-0.2); Platelet Count 237 X10*3/uL (160-400); Red Blood Count 3.08 X10*6/uL (4.60-5.80); White Blood Count 9.2 X10*3/uL (4.8-10.8)
[2025-09-26] MEDS: Albuterol/Iprat 2.5/0.5MG 3 ML AMPUL.NEB INHALE (11:14)
[2025-09-26 11:16] VITALS: PULSE 87; RESP 16; O2SAT 97
[2025-09-26] MEDS: Furosemide 40 MG/4 ML VIAL IVPUSH (12:35)
--- NOTE | 2025-09-26 14:51 | HO.PM.IMPN ---
Subjective Subjective Date of Service: 09/26/25 Interval History: Patient seen and examined at bedside this morning, patient states that he gets dizzy, continues to be short of breath requiring oxygen on minimal movement. Pulmonology consulted. Review of Systems Review of Systems: Yes all other systems are reviewed and are negative Physical Exam Exam: Exam: General: AxOx3, on acute respiratory distress with supplemental oxygen Head: AT/NC ENT: Moist mucous membranes Neck: supple CVS; RRR, S1 S2 normal Lungs: Coarse bilateral breath sounds, rales Abd: Soft non tender, non distended Ext: No edema and no calf tenderness MSK: moving all 4 limbs Skin: No cyanosis or edema Psych: Cooperative with exam Neurology: no focal deficit Vital Signs: Vital Signs: Last Vital Signs Temp 97.9 F 09/26/25 07:21 Pulse 87 09/26/25 11:16 Resp 16 09/26/25 11:16 BP 119/61 09/26/25 07:21 Pulse Ox 93 09/26/25 07:21 O2 Del Method Room Air 09/26/25 07:21 O2 Flow Rate 1 09/25/25 07:56 BMI result Body Mass Index 25.8 Objective Data Active Medications Acetaminophen (Acetaminophen 325 Mg Tablet) 650 mg PO Q6H PRN PRN Reason: Pain, Mild 1-3,fever,headache Albuterol/Ipratropium (Albuterol/Iprat 2.5/0.5mg 3 Ml Ampul.Neb) 3 ml INHALE RQ6H [facility] Last Admin: 09/26/25 11:14 Dose: 3 ml Documented By: YVETTE Amlodipine Besylate (Amlodipine Besylate 10 Mg Tablet) 10 mg PO DAILY [facility]; Protocol Last Admin: 09/26/25 07:48 Dose: 10 mg Documented By: DABTristen Calcium Carbonate (Calcium Carbonate 750 Mg Tab.Chew) 750 mg PO Q4H PRN PRN Reason: Heartburn Enoxaparin Sodium (Enoxaparin Sodium 40 Mg/0.4 Ml Syringe) 40 mg SUBCUT Q24H [facility] Last Admin: 09/25/25 15:50 Dose: 40 mg Documented By: BLANCA Fluticasone/Vilanterol (Fluticasone/Vilanterol 200/25 Blst.W.Dev) 1 puff INHALE RDAILY [facility] Last Admin: 09/26/25 08:02 Dose: 1 puff Documented By: YVETTE Folic Acid (Folic Acid 1 Mg Tablet) 1 mg PO DAILY [facility] Last Admin: 09/26/25 07:48 Dose: 1 mg Documented By: NELLY Furosemide (Furosemide 20 Mg Tablet) 20 mg PO DAILY [facility]; Protocol Last Admin: 09/26/25 07:48 Dose: 20 mg Documented By: NELLY Ipratropium [place] (Ipratropium [place] Osorio 0.06 % 15 Ml [place]) 2 spray NOSTRIL-B TID PRN PRN Reason: allergies Magnesium Hydroxide (Milk Of Magnesia 30 Ml Oral.Susp) 30 ml PO DAILY PRN PRN Reason: Constipation Meclizine HCl (Meclizine Hcl 25 Mg Tablet) 25 mg PO Q8H PRN PRN Reason: Vertigo Melatonin (Melatonin 3 Mg Tablet) 6 mg PO BEDTIME PRN PRN Reason: Insomnia Ondansetron HCl (Ondansetron Hcl 4 Mg/2 Ml Vial) 4 mg IVPUSH Q8H PRN PRN Reason: Nausea and Vomiting Sodium Chloride (0.9 % Sodium Chloride Flush 3 Ml Syringe) 3 ml IVFLUSH QSHIFT [facility] Last Admin: 09/26/25 07:49 Dose: 3 ml Documented By: NELLY Labs 09/26/25 08:19 09/24/25 05:35 Labs: Laboratory Results - last 24 hr 09/26/25 08:19 MCV 91.9 MCH 31.8 MCHC 34.6 RDW 19.8 H Plt Count 237 MPV 9.9 Immature Gran % (Auto) 3.3 H Neut % (Auto) 71.1 Lymph % (Auto) 19.5 L [place] % (Auto) 5.2 Eos % (Auto) 0.7 Baso % (Auto) 0.2 Lymph # (Auto) 1.8 [place] # (Auto) 0.5 Eos # (Auto) 0.1 Baso # (Auto) 0.0 Abs Immat Gran (auto) 0.30 H Absolute Neuts (auto) 6.6 Absolute Nucleated RBC 0.020 H Nucleated RBC % (auto) 0.2 Microbiology Microbiology Results: Microbiology 09/23/25 10:54 Blood Culture - Preliminary Blood - Venous No growth after 48 hours. 09/23/25 10:51 Blood Culture - Preliminary Blood - Venous No growth after 48 hours. 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 Required 4 units of packed red blood cells on 09/23, 2 units on 09/24. At this time patient with shortness of breath on minimal exertion. Acute hypoxic respiratory failure, likely multifactorial in origin, improving after blood transfusion. -Hemoglobin on admission 5.5, on 09/24 6.5, on 09/25 8.9 -chest x-ray with pulmonary mass and right upper lobe -status post 6 units of packed red blood cells since admission, will give lasix 40mg IV once -Monitor for any signs of bleeding, we will transfuse for hemoglobin less than 7 -monitor and titrate oxygen for SpO2 greater than 90%. -Pulmonology consulted Mild HFpEF on home dose of lasix, will give one dose of IV lasix HTN, chronic -continue amlodipine, Lasix, monitor adjust medications accordingly COPD -continue with nebulizing treatments and home inhalers -monitor and titrate oxygen for SpO2 greater than 90% as stated above. [id number] lung carcinoma with metastasis currently on chemotherapy 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 -imaging reviewed -continue per [facility] Oncology recommendations -monitor for any signs of worsening shortness of breath, hemoptysis Ambulatory dysfunction Generalized weakness -PT/OT consulted DVT Ppx Lovenox Code Status: Full Disposition: All questions and concerns with the patient were answered to satisfaction. All pertinent clinical documents, images and labs were reviewed. DISCLAIMER: This document was created using voice recognition software. Any mistakes in the prescription are unintentional. An attempt was made to focus for accuracy, but to expedite availability, some errors may persist. Please contact with any need for correction or further clarification Total time managing care of this patient today: 55 minutes. Quality Stroke Does the patient have a stroke diagnosis?: No VTE Prior VTE?: No VTE Risk Level:: Medical - moderate - high VTE Device Contraindication: Treatment Not Indicated VTE Drug Contraindication: N/A - Med Ordered
[2025-09-26 16:00] VITALS: BP 125/71; PULSE 98; RESP 16; TEMP 36.7; O2SAT 96
--- NOTE | 2025-09-26 16:00 | HO.SKINPHOTO ---
Pt noted to have MASD to buttocks with scratches noted, triad applied. Bilateral heels boggy non-blanchable question DTI, foams applied and pillows off loading pressure. Right heel noted to have blister, left heel noted to have calloused area in addition to small purple area non-blanching. Left Elbow noted to have large scab, foam applied. SIPPS protocol initiated, airloss pump applied to bed. Wound care nurse consulted. Location: Bilateral buttocks Left Elbow Left Heel Right Heel
[2025-09-26 19:55] VITALS: BP 122/66; PULSE 94; RESP 14; TEMP 36.6; O2SAT 98
[2025-09-27] VITALS (7 sets, daily range): BP systolic 115–121; BP diastolic 63–67; PULSE 83–128; RESP 15–18; TEMP 36–37.1; O2SAT 81–96
[2025-09-27] MEDS: 0.9 % Sodium Chloride Flush 3 ML SYRINGE IVFLUSH ×3 (07:42→20:23)
[2025-09-27] MEDS: Fluticasone/Vilanterol 200/25 BLST.W.DEV 1 PUFF INHALE (07:50)
--- NOTE | 2025-09-27 09:27 | P.CONPL_ITS ---
History of Present Illness History of Present Illness Consult date: 09/27/25 Chief complaint: Anemia Narrative: This is an inpatient pulmonary consultation. The patient is a 70 year old male with PMH Chronic Anemia and Lung Ca receiving Chemo therapy presenting to the ED with concerns for Dysnea on excertion. Patient reported dyspnea with short distances, symptoms became progressively worseover the last four days relieved with rest. Reports associated symptoms of weakness, dizziness, fast heart beating. He had been using his inhalors with no relief. He denies fever, chills, chest pain. In the ED HH was noted to be 5.5 / 16, transfused with 1 Unit PRBC, Occult stool neg, Pro BNP 703.5, EKG concerning for Afib patient denies history. CXR remarkable for known pulmonary mass in the right upper lobe, Patchy airspace disease in the right lower lung, suspicious for pneumonia. He was given dose of IV Lasix in the ER. He will be admitted for further management of acute mild CHF and symptomatic anemia. During the hospitalization the patient developed worsening respiratory symptoms and noted to be hypoxic. He required 4 L of oxygen. X-ray of the chest personally by me demonstrating some hazy opacities in the right hemithorax. The patient was given Lasix. His oxygen requirements did go down. Likely component of volume overload from transfusions versus a mild degree of transfusion related lung injury (TRALI). Pneumonias also in the differential. The patient is currently being covered with antibiotics. Clinically is feeling little better this morning. I did provide him with incentive spirometer so he can work on deep breathing exercises. Review of Systems 2 Review of Systems: Denies any recent fever chills or decrease in appetite Respiratory See HPI Cardiovascular reports palpitations with exertion, denies chest pain Gastrointestinal denies any dysphagia abdominal pain nausea vomiting or diarrhea Genitourinary denies any dysuria frequency or hematuria Musculoskeletal Right hand swelling Neuropsych reports weakness with exertion, no seizures all other systems reviewed are negative PMFSH Past Medical History Medical History Swelling of right hand Anemia in chronic illness Lung cancer COPD (chronic obstructive pulmonary disease) Pancreatic mass Lymphadenopathy Lung mass Nicotine dependence, cigarettes, uncomplicated SVT (supraventricular tachycardia) Edema Pressure ulcer Alcohol use disorder Cognitive disorder Rhabdomyolysis Hypertension Family History Family History Father No problems noted. Mother Lung cancer Family/Other Lung cancer Throat cancer Surgical History Surgical History History of colonoscopy History of lumbar laminectomy Social History Social History Household Members: None Household Members Other:: pt lives alone Housing: Apartment Are you a primary resident care director to a significant other at home: No Do you presently have visiting nurse or other home services: Yes ([facility] and PT) Alcohol intake: current Alcohol intake frequency: 0-2 drinks per day Alcohol type: beer Comment: camera not available Patient Tobacco Use Status: Current everyday Tobacco user Tobacco use type: Cigarette Cigarette Packs Per Day: 1 Cigarettes Per Day: 15 Years Smoked: (onset 16yo, 1-1.5ppd x 53yrs, 60+PYH) e-Cigarette/Vaping Use: Currently Using Second Hand Smoke Exposure: No Advance Directives Date on File: 12/14/22 service: No 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 identity: Male Cognitive needs: Yes (Cane) Hearing needs: No Vision needs: Yes (Glasses) Meds Allergies Allergy/AdvReac Type Severity Reaction Status Date / Time No Known Allergies Allergy Verified 09/23/25 09:19 Active Medications: Current Medications Acetaminophen (Acetaminophen 325 Mg Tablet) 650 mg PO Q6H PRN PRN Reason: Pain, Mild 1-3,fever,headache Albuterol/Ipratropium (Albuterol/Iprat 2.5/0.5mg 3 Ml Ampul.Neb) 3 ml INHALE RQ6H [facility] Last Admin: 09/27/25 05:47 Dose: Not Given Amlodipine Besylate (Amlodipine Besylate 10 Mg Tablet) 10 mg PO DAILY [facility]; Protocol Last Admin: 09/27/25 07:41 Dose: 10 mg Calcium Carbonate (Calcium Carbonate 750 Mg Tab.Chew) 750 mg PO Q4H PRN PRN Reason: Heartburn Enoxaparin Sodium (Enoxaparin Sodium 40 Mg/0.4 Ml Syringe) 40 mg SUBCUT Q24H [facility] Last Admin: 09/26/25 17:04 Dose: 40 mg Fluticasone/Vilanterol (Fluticasone/Vilanterol 200/25 Blst.W.Dev) 1 puff INHALE RDAILY [facility] Last Admin: 09/27/25 07:50 Dose: 1 puff Folic Acid (Folic Acid 1 Mg Tablet) 1 mg PO DAILY [facility] Last Admin: 09/27/25 07:42 Dose: 1 mg Furosemide (Furosemide 20 Mg Tablet) 20 mg PO DAILY [facility]; Protocol Last Admin: 09/27/25 07:41 Dose: 20 mg Ipratropium [place] (Ipratropium [place] Osorio 0.06 % 15 Ml [place]) 2 spray NOSTRIL-B TID PRN PRN Reason: allergies Magnesium Hydroxide (Milk Of Magnesia 30 Ml Oral.Susp) 30 ml PO DAILY PRN PRN Reason: Constipation Meclizine HCl (Meclizine Hcl 25 Mg Tablet) 25 mg PO Q8H PRN PRN Reason: Vertigo Melatonin (Melatonin 3 Mg Tablet) 6 mg PO BEDTIME PRN PRN Reason: Insomnia Ondansetron HCl (Ondansetron Hcl 4 Mg/2 Ml Vial) 4 mg IVPUSH Q8H PRN PRN Reason: Nausea and Vomiting Sodium Chloride (0.9 % Sodium Chloride Flush 3 Ml Syringe) 3 ml IVFLUSH QSHIFT [facility] Last Admin: 09/27/25 07:42 Dose: 3 ml Home Medications ?Medication ?Instructions ?Recorded ?Confirmed ?Last Taken ?Type dexamethasone 4 mg tablet See Rx Instructions .Route . COMPLEX 08/27/25 09/23/25 Unknown History ipratropium bromide 42 mcg (0.06 2 spray intranasal TI D PRN 08/27/25 09/23/25 Unknown History %) nasal spray allergies furosemide 20 mg tablet (Lasix) 20 mg PO DAILY Weight gain 09/23/25 09/23/25 09/22/25 History Physical Exam 2 Vital Signs: Vital Signs: Last Vital Signs Temp 98.8 F 09/27/25 07:21 Pulse 88 09/27/25 07:52 Resp 15 09/27/25 07:52 BP 115/65 09/27/25 07:21 Pulse Ox 96 09/27/25 07:21 O2 Del Method Room Air 09/27/25 07:21 O2 Flow Rate 2 09/27/25 04:00 BMI result Body Mass Index 25.8 Const: General: comfortable HEENT: Head: Yes normocephalic Neck: Neck: Yes supple Chest: Chest palpation & inspection: normal inspection of the chest Resp: Effort & Inspection: normal respiratory effort Auscultation: d iminished lung sounds Cardio: Heart sounds: S1 normal heart sound present and S2 normal heart sound present GI: Palpation (GI): Soft to palpation Skin: General skin exam: no rashes or lesions noted Extrem: General: No cyanosis Results Laboratory Findings 09/26/25 08:19 09/24/25 05:35 ABG, PT/INR, D-dimer: PT/INR, D-dimer PT 14.5 SEC (11.2-13.5) H 09/23/25 10:48 INR 1.2 (0.9-1.1) H 09/23/25 10:48 Abnormal lab findings: Abnormal Labs 09/23/25 09/23/25 09/23/25 10:48 11:05 12:05 RBC 1.65 L D Hgb 5.5 L* D Hct 16.0 L* D MCH 33.3 H RDW 23.0 H Immature Gran % (Auto) Lymph % (Auto) Abs Immat Gran (auto) Absolute Nucleated RBC Nucleated RBC % (auto) Band Neutrophils % 2 L PT 14.5 H INR 1.2 H VBG pH 7.51 H VBG HCO3 33 H Carbon Dioxide 30 H Anion Gap 10 L Calcium 8.2 L AST 45 H Alkaline Phosphatase 157 H NT-Pro-B Natriuret Pep 703.5 H Total Protein 5.3 L Albumin 2.4 L Crossmatch See Detail 09/24/25 09/24/25 09/25/25 05:35 14:56 05:26 RBC 2.00 L D 2.83 L D Hgb 6.5 L* 9.1 L D 8.9 L Hct 19.0 L* 26.8 L D 25.8 L MCH RDW 21.6 H 20.6 H Immature Gran % (Auto) Lymph % (Auto) Abs Immat Gran (auto) Absolute Nucleated RBC 0.020 H 0.020 H Nucleated RBC % (auto) 0.3 H 0.3 H Band Neutrophils % PT INR VBG pH VBG HCO3 Carbon Dioxide 30 H Anion Gap Calcium 7.8 L AST Alkaline Phosphatase NT-Pro-B Natriuret Pep Total Protein Albumin Crossmatch 09/26/25 08:19 RBC 3.08 L Hgb 9.8 L Hct 28.3 L MCH RDW 19.8 H Immature Gran % (Auto) 3.3 H Lymph % (Auto) 19.5 L Abs Immat Gran (auto) 0.30 H Absolute Nucleated RBC 0.020 H Nucleated RBC % (auto) Band Neutrophils % PT INR VBG pH VBG HCO3 Carbon Dioxide Anion Gap Calcium AST Alkaline Phosphatase NT-Pro-B Natriuret Pep Total Protein Albumin Crossmatch Microbiology: Microbiology 09/23/25 10:54 Blood - Venous Blood Culture - Preliminary No growth after 48 hours. 09/23/25 10:51 Blood - Venous Blood Culture - Preliminary No growth after 48 hours. Assessment and Plan (1) COPD (chronic obstructive pulmonary disease): Qualifiers: COPD type: chronic bronchitis Chronic bronchitis type: simple Q ualified Code(s): J41.0 - Simple chronic bronchitis Status: Acute (2) Acute hypoxic respiratory failure: Status: Acute (3) 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: Status: Acute (4) Acute anemia: Status: Acute (5) Acute congestive heart failure: Status: Acute Plan Continue respiratory therapy Oxygen supplementation to maintain a pulse ox between 90-96% Diuresis as tolerated Repeat chest x-ray today if we see any evidence of any pneumonitis will start him on some corticosteroids Continuing to evaluate and treat his anemia Procedures Date of Service Date of Service: 09/27/25
--- NOTE | 2025-09-27 10:29 | HO.PM.IMPN ---
Subjective Subjective Date of Service: 09/27/25 Interval History: Patient seen examined at bedside this morning, patient received Lasix yesterday for hypoxia after given 6 units of blood transfusion. Patient on supplemental oxygen at this time. Review of Systems Review of Systems: Yes all other systems are reviewed and are negative Physical Exam Exam: Exam: General: AxOx3, on acute respiratory distress with supplemental oxygen, improved Head: AT/NC ENT: Moist mucous membranes Neck: supple CVS; RRR, S1 S2 normal Lungs: Coarse bilateral breath sounds, rales in bases Abd: Soft non tender, non distended Ext: No edema and no calf tenderness MSK: moving all 4 limbs Skin: No cyanosis or edema Psych: Cooperative with exam Neurology: no focal deficit Vital Signs: Vital Signs: Last Vital Signs Temp 98.8 F 09/27/25 07:21 Pulse 88 09/27/25 07:52 Resp 15 09/27/25 07:52 BP 115/65 09/27/25 07:21 Pulse Ox 96 09/27/25 07:21 O2 Del Method Room Air 09/27/25 07:21 O2 Flow Rate 2 09/27/25 04:00 BMI result Body Mass Index 25.8 Objective Data Active Medications Acetaminophen (Acetaminophen 325 Mg Tablet) 650 mg PO Q6H PRN PRN Reason: Pain, Mild 1-3,fever,headache Albuterol/Ipratropium (Albuterol/Iprat 2.5/0.5mg 3 Ml Ampul.Neb) 3 ml INHALE RQ6H [facility] Last Admin: 09/27/25 05:47 Dose: Not Given Documented By: LIDIA Non-Admin Reason: Patient Refused Amlodipine Besylate (Amlodipine Besylate 10 Mg Tablet) 10 mg PO DAILY [facility]; Protocol Last Admin: 09/27/25 07:41 Dose: 10 mg Documented By: HARRISON Calcium Carbonate (Calcium Carbonate 750 Mg Tab.Chew) 750 mg PO Q4H PRN PRN Reason: Heartburn Enoxaparin Sodium (Enoxaparin Sodium 40 Mg/0.4 Ml Syringe) 40 mg SUBCUT Q24H [facility] Last Admin: 09/26/25 17:04 Dose: 40 mg Documented By: HARRISON Fluticasone/Vilanterol (Fluticasone/Vilanterol 200/25 Blst.W.Dev) 1 puff INHALE RDAILY [facility] Last Admin: 09/27/25 07:50 Dose: 1 puff Documented By: ADELINE Folic Acid (Folic Acid 1 Mg Tablet) 1 mg PO DAILY [facility] Last Admin: 09/27/25 07:42 Dose: 1 mg Documented By: HARRISON Furosemide (Furosemide 20 Mg Tablet) 20 mg PO DAILY [facility]; Protocol Last Admin: 09/27/25 07:41 Dose: 20 mg Documented By: HARRISON Ipratropium [place] (Ipratropium [place] Osorio 0.06 % 15 Ml [place]) 2 spray NOSTRIL-B TID PRN PRN Reason: allergies Magnesium Hydroxide (Milk Of Magnesia 30 Ml Oral.Susp) 30 ml PO DAILY PRN PRN Reason: Constipation Meclizine HCl (Meclizine Hcl 25 Mg Tablet) 25 mg PO Q8H PRN PRN Reason: Vertigo Melatonin (Melatonin 3 Mg Tablet) 6 mg PO BEDTIME PRN PRN Reason: Insomnia Ondansetron HCl (Ondansetron Hcl 4 Mg/2 Ml Vial) 4 mg IVPUSH Q8H PRN PRN Reason: Nausea and Vomiting Sodium Chloride (0.9 % Sodium Chloride Flush 3 Ml Syringe) 3 ml IVFLUSH QSHIFT [facility] Last Admin: 09/27/25 07:42 Dose: 3 ml Documented By: HARRISON Labs 09/26/25 08:19 09/24/25 05:35 Assessment and Plan (1) 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: Status: Acute (2) COPD (chronic obstructive pulmonary disease): Status: Acute (3) Acute hypoxic respiratory failure: Status: Acute (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 Required 4 units of packed red blood cells on 09/23, 2 units on 09/24. Patient received IV Lasix on 09/26, mentions that breathing improved Acute hypoxic respiratory failure, likely multifactorial in origin, improved after diuretics given -Hemoglobin on admission 5.5, on 09/24 6.5, on 09/25 8.9 -chest x-ray with pulmonary mass and right upper lobe -status post 6 units of packed red blood cells since admission -Monitor for any signs of bleeding, we will transfuse for hemoglobin less than 7 -monitor and titrate oxygen for SpO2 greater than 90%. -Pulmonology consulted and following -Incentive spirometer -ordereded home oxygen blood test Mild HFpEF Continue home dose of lasix Monitor for signs of fluid overload HTN, chronic -continue amlodipine, Lasix, monitor adjust medications accordingly COPD -continue with nebulizing treatments and home inhalers -monitor and titrate oxygen for SpO2 greater than 90% as stated above. [id number] lung carcinoma with metastasis currently on chemotherapy 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 -imaging reviewed -continue per [facility] [place] Oncology recommendations -monitor for any signs of worsening shortness of breath, hemoptysis Ambulatory dysfunction Generalized weakness -PT/OT consulted DVT Ppx Lovenox Code Status: Full Disposition: All questions and concerns with the patient were answered to satisfaction. All pertinent clinical documents, images and labs were reviewed. Total time managing care of this patient today: 55 minutes. Quality Stroke Does the patient have a stroke diagnosis?: No VTE Prior VTE?: No VTE Risk Level:: Medical - moderate - high VTE Device Contraindication: Treatment Not Indicated VTE Drug Contraindication: N/A - Med Ordered
[2025-09-27] MEDS: Albuterol/Iprat 2.5/0.5MG 3 ML AMPUL.NEB INHALE (11:35)
--- NOTE | 2025-09-27 12:13 | HO.WOUND ---
Wound Consult: Initial 70yr old male? [place] [facility] [place] See progress notes and H&P for detailed history.? Wound consult placed for Sacrum, Bilateral Heels and Left elbow.? Patient agreeable to assessment and photo documentation.? Sacrum / Buttock Etiology: MASD with Friction ?? Wound Bed: improving linear friction lines - remains intact and blanchable Drainage / Odor: None Edges: ?well defined So wound: ? No Induration, Fluctuance or Warmth noted Pain: tenderness reported Goals of Treatment: ? continue off loading - foam dressing and waffle cushion in use already Left Elbow - stable scab abrasion. continue foam dressing Q 3 days. Right Heel Etiology: Intact Red blanchable tissue no PI noted - off loaded with foam dressing and pillows. ? Left Heel Etiology: Stage 1 Pressure Injury Measurements: 0.5cm x 0.5cm x 0cm Wound Bed: intact red nonblanchbale tissue Drainage / Odor: NOne Edges: ? Attached So wound: ? No Induration, Fluctuance or Warmth noted Pain: denies Goals of Treatment: ? Off load - foam applied and pillows in use Recommendations: 1. Turn and Reposition every 2 hours and as needed for patient comfort.? Use pillows or wedges to support off loading positions. 2. Off Load all bony prominences with use of pillows and heel boots if needed.? Apply Preventative foams where needed. ? 3. Monitor for incontinence and moisture control, use barrier creams when needed for prevention and treatment. 4. Provide adequate and supplemental nutrition.? 5. Continue low air loss mattress. 6. When applicable maintain blood glucose levels per Providers order. Sacrum / Buttock left elbow and bilateral Heels - Off Load Pressure with Q2 hr turns and use of pillows - Routine cleansing.? Apply skin prep allow to dry.? Cover with foam dressing to aid in off loading and protection from friction. Change every 3 days and PRN. Re-consult wound care Nurse for wound deterioration or wound changes.
--- NOTE | 2025-09-27 15:52 | MHC.CM.PN ---
per rounds pt to have a 02 home eval
[2025-09-28] VITALS (8 sets, daily range): BP systolic 110–120; BP diastolic 58–64; PULSE 90–107; RESP 18; TEMP 36.2–37.7; O2SAT 92–98
[2025-09-28] MEDS: Fluticasone/Vilanterol 200/25 BLST.W.DEV 1 PUFF INHALE (07:30)
--- NOTE | 2025-09-28 07:49 | P.CDIM_ITS ---
PROVIDER RESPONSE TEXT: To clarify, the appropriate diagnosis supported by the clinical indicators: Diastolic: chronic QUERY TEXT: PHYSICIAN'S DOCUMENTATION REQUEST Date of Query: 09/24/2025 09:27 AM EST Patient Name: Hari Page Admit Date: 09/23/2025 Dear Brittany Cesar NP, A review of the medical record indicates additional documentation may be needed. Please review below and update the documentation accordingly. Clinical Indicators: Shortness of breath BNP 703 Lasix po per H&P: acute mild CHF Please provide further specificity regarding the most likely type and acuity of CHF you are evaluating, treating, or monitoring. Systolic Please specify if Acute, Chronic, or Acute on chronic, or Unable to determine Diastolic Please specify if Acute, Chronic, or Acute on chronic, or Unable to determine Combined Systolic/Diastolic Please specify if Acute, Chronic, or Acute on chronic, or Unable to determine Other (explain) Clinically unable to determine (explain) Thank you, Eula Barillas RN Use of terms such as suspected, likely, concern for, or probable (associated with a specific diagnosis that is being evaluated, monitored, or treated as if it exists) are acceptable and can be coded in the inpatient setting, when documented at the time of discharge. Please use your independent medical judgment in providing your response. THIS QUERY IS PART OF THE PERMANENT MEDICAL RECORD
[2025-09-28] MEDS: 0.9 % Sodium Chloride Flush 3 ML SYRINGE IVFLUSH ×3 (07:55→19:47)
[2025-09-28] MEDS: Furosemide 40 MG/4 ML VIAL IVPUSH (09:09)
--- NOTE | 2025-09-28 10:09 | P.PNIM_ITS ---
Subjective Subjective Date of Service: 09/28/25 Interval History: Patient seen and examined at bedside this morning, patient mentions that he is feeling better, however persists with shortness of breath. patient's chest x- ray showing pulmonary edema, we will give additional dose of Lasix. At this time continues on supplemental oxygen. Review of Systems Review of Systems: Yes all other systems are reviewed and are negative Physical Exam 2 Exam: Exam: General: AxOx3, on acute respiratory distress with supplemental oxygen, improved Head: AT/NC ENT: Moist mucous membranes Neck: supple CVS; RRR, S1 S2 normal Lungs: Coarse bilateral breath sounds, rales in bases Abd: Soft non tender, non distended Ext: No edema and no calf tenderness MSK: moving all 4 limbs Skin: No cyanosis or edema Psych: Cooperative with exam Neurology: no focal deficit Vital Signs: Vital Signs: Last Vital Signs Temp 99.9 F 09/28/25 07:21 Pulse 101 H 09/28/25 07:21 Resp 18 09/28/25 07:21 BP 110/64 09/28/25 09:09 Pulse Ox 97 09/28/25 07:21 O2 Del Method Room Air 09/28/25 07:21 O2 Flow Rate 2 09/28/25 03:01 BMI result Body Mass Index 25.8 Objective Data Active Medications Acetaminophen (Acetaminophen 325 Mg Tablet) 650 mg PO Q6H PRN PRN Reason: Pain, Mild 1-3,fever,headache Last Admin: 09/28/25 07:53 Dose: 650 mg Documented By: WILLIE Albuterol/Ipratropium (Albuterol/Iprat 2.5/0.5mg 3 Ml Ampul.Neb) 3 ml INHALE RQ6H [facility] Last Admin: 09/28/25 05:07 Dose: Not Given Documented By: EDOUARD Non-Admin Reason: Patient Refused Amlodipine Besylate (Amlodipine Besylate 10 Mg Tablet) 10 mg PO DAILY [facility]; Protocol Last Admin: 09/28/25 07:53 Dose: 10 mg Documented By: WILLIE Calcium Carbonate (Calcium Carbonate 750 Mg Tab.Chew) 750 mg PO Q4H PRN PRN Reason: Heartburn Enoxaparin Sodium (Enoxaparin Sodium 40 Mg/0.4 Ml Syringe) 40 mg SUBCUT Q24H [facility] Last Admin: 09/27/25 17:14 Dose: 40 mg Documented By: HARRISON Fluticasone/Vilanterol (Fluticasone/Vilanterol 200/25 Blst.W.Dev) 1 puff INHALE RDAILY [facility] Last Admin: 09/28/25 07:30 Dose: 1 puff Documented By: BEV Folic Acid (Folic Acid 1 Mg Tablet) 1 mg PO DAILY [facility] Last Admin: 09/28/25 07:53 Dose: 1 mg Documented By: WILLIE Furosemide (Furosemide 20 Mg Tablet) 20 mg PO DAILY [facility]; Protocol Last Admin: 09/28/25 07:53 Dose: 20 mg Documented By: WILLIE Ipratropium [place] (Ipratropium [place] Osorio 0.06 % 15 Ml [place]) 2 spray NOSTRIL-B TID PRN PRN Reason: allergies Magnesium Hydroxide (Milk Of Magnesia 30 Ml Oral.Susp) 30 ml PO DAILY PRN PRN Reason: Constipation Meclizine HCl (Meclizine Hcl 25 Mg Tablet) 25 mg PO Q8H PRN PRN Reason: Vertigo Melatonin (Melatonin 3 Mg Tablet) 6 mg PO BEDTIME PRN PRN Reason: Insomnia Ondansetron HCl (Ondansetron Hcl 4 Mg/2 Ml Vial) 4 mg IVPUSH Q8H PRN PRN Reason: Nausea and Vomiting Sodium Chloride (0.9 % Sodium Chloride Flush 3 Ml Syringe) 3 ml IVFLUSH QSHIFT [facility] Last Admin: 09/28/25 07:55 Dose: 3 ml Documented By: WILLIE Labs 09/26/25 08:19 09/24/25 05:35 Assessment and Plan (1) 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: Status: Acute (2) COPD (chronic obstructive pulmonary disease): Status: Acute (3) Acute hypoxic respiratory failure: Status: Acute (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 Required 4 units of packed red blood cells on 09/23, 2 units on 09/24. Patient received IV Lasix on 09/26, with chest x ray showing pulmonary edema. Acute hypoxic respiratory failure, likely multifactorial in origin, improved after diuretics given -Hemoglobin on admission 5.5, on 09/24 6.5, on 09/25 8.9 -status post 6 units of packed red blood cells since admission -chest x-ray with pulmonary mass and right upper lobe, repeat chest x ray on 09/27 with worsening pulmonary edema -Monitor for any signs of bleeding, we will transfuse for hemoglobin less than 7 -monitor and titrate oxygen for SpO2 greater than 90%. -Pulmonology consulted and following -Incentive spirometer -give additional IV lasix, continue to monitor Mild HFpEF Continue home dose of lasix Monitor for signs of fluid overload HTN, chronic -continue amlodipine, Lasix, monitor adjust medications accordingly COPD -continue with nebulizing treatments and home inhalers -monitor and titrate oxygen for SpO2 greater than 90% as stated above. [id number] lung carcinoma with metastasis currently on chemotherapy 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 -imaging reviewed -continue per [facility] [place]cology recommendations -monitor for any signs of worsening shortness of breath, hemoptysis Ambulatory dysfunction Generalized weakness -PT/OT consulted DVT Ppx Lovenox Code Status: Full Disposition: All questions and concerns with the patient were answered to satisfaction. All pertinent clinical documents, images and labs were reviewed. Total time managing care of this patient today: 55 minutes. Quality Stroke Does the patient have a stroke diagnosis?: No VTE Prior VTE?: No VTE Risk Level:: Medical - moderate - high VTE Device Contraindication: Treatment Not Indicated VTE Drug Contraindication: N/A - Med Ordered
[2025-09-28] MEDS: Albuterol/Iprat 2.5/0.5MG 3 ML AMPUL.NEB INHALE ×2 (11:20→16:57)
[2025-09-28 16:24] LABS: Hematocrit 27.6 % (42.0-52.0); Hemoglobin 9.2 g/dl (14.0-18.0); Mean Corpuscular HGB Conc 33.3 g/dl (31.0-36.0); Mean Corpuscular Hemoglobin 31.3 pg (27.0-33.0); Mean Corpuscular Volume 93.9 fL (80.0-98.0); NRBC Abs Auto 0.000 X10*3/uL (0.0-0.012); NRBC Pct Auto 0.0 /100WBC (0.0-0.2); Platelet Count 214 X10*3/uL (160-400); Red Blood Count 2.94 X10*6/uL (4.60-5.80); White Blood Count 13.4 X10*3/uL (4.8-10.8)
[2025-09-28 16:36] LABS: Uric Acid 5.8 mg/dL (3.4-7.0)
[2025-09-28 16:37] LABS: Alanine Aminotransferase 9 U/L (0-40); Albumin Level 2.1 g/dL (3.5-5.0); Alkaline Phosphatase 145 U/L (39-117); Anion Gap 11 (12-20); Aspartate Amino Transferase 39 U/L (5-37); Blood Urea Nitrogen 16 mg/dL (9-16); Calcium 7.5 mg/dL (8.4-10.2); Carbon Dioxide 31 mmol/L (22-29); Chloride 99 mmol/L (96-108); Creatinine Clr Calc Pharmacy 77.5; Estimated Glomerular Filt Rate > 60; Potassium 3.3 mmol/L (3.3-5.1); Sodium 138 mmol/L (135-145); Total Protein 5.1 g/dL (6.5-8.0)
[2025-09-29 03:42] VITALS: BP 108/61; PULSE 101; RESP 18; TEMP 36.7; O2SAT 95
[2025-09-29 07:19] VITALS: PULSE 101; RESP 18; O2SAT 96
[2025-09-29] MEDS: Fluticasone/Vilanterol 200/25 BLST.W.DEV 1 PUFF INHALE (07:19)
[2025-09-29 07:33] VITALS: BP 106/59; PULSE 98; RESP 18; TEMP 37.1; O2SAT 93
--- NOTE | 2025-09-29 07:51 | PC.RT ---
Home O2 eval competed on 09/27 stating pt requires no O2 at rest and 3 lpm with ambulation. O2 was set up with [employer]. Pt was not discharged on 09/27, therefore O2 eval will need to be redone on day of discharge or most accurate results.
[2025-09-29] MEDS: 0.9 % Sodium Chloride Flush 3 ML SYRINGE IVFLUSH ×2 (08:30→16:10)
--- NOTE | 2025-09-29 08:43 | P.PNIM_ITS ---
Subjective Subjective Date of Service: 09/29/25 Interval History: Patient seen examined at bedside this morning, states that he is still experiencing shortness of breath, on labs WBC 13.4, with x-ray showing possible developing pneumonia. Review of Systems Review of Systems: Yes all other systems are reviewed and are negative Physical Exam 2 Exam: Exam: General: AxOx3, on acute respiratory distress with supplemental oxygen Head: AT/NC ENT: Moist mucous membranes Neck: supple CVS; RRR, S1 S2 normal Lungs: Coarse bilateral breath sounds, rales in bases Abd: Soft non tender, non distended Ext: No edema and no calf tenderness MSK: moving all 4 limbs Skin: No cyanosis or edema Psych: Cooperative with exam Neurology: no focal deficit Vital Signs: Vital Signs: Last Vital Signs Temp 98.7 F 09/29/25 07:33 Pulse 98 09/29/25 07:33 Resp 18 09/29/25 07:33 BP 106/59 L 09/29/25 07:33 Pulse Ox 93 09/29/25 07:33 O2 Del Method Room Air 09/29/25 07:33 O2 Flow Rate 2 09/29/25 03:42 BMI result Body Mass Index 25.8 Objective Data Active Medications Acetaminophen (Acetaminophen 325 Mg Tablet) 650 mg PO Q6H PRN PRN Reason: Pain, Mild 1-3,fever,headache Last Admin: 09/28/25 07:53 Dose: 650 mg Documented By: WILLIE Albuterol/Ipratropium (Albuterol/Iprat 2.5/0.5mg 3 Ml Ampul.Neb) 3 ml INHALE RQ6H [facility] Last Admin: 09/29/25 05:55 Dose: Not Given Documented By: JOSELIN Non-Admin Reason: Patient Refused Amlodipine Besylate (Amlodipine Besylate 10 Mg Tablet) 10 mg PO DAILY [facility]; Protocol Last Admin: 09/29/25 08:28 Dose: 10 mg Documented By: WILLIE Azithromycin (Azithromycin 500 Mg Tablet) 500 mg PO Q24H [facility] Stop: 10/04/25 07:44 Last Admin: 09/29/25 08:28 Dose: 500 mg Documented By: WILLIE Calcium Carbonate (Calcium Carbonate 750 Mg Tab.Chew) 750 mg PO Q4H PRN PRN Reason: Heartburn Enoxaparin Sodium (Enoxaparin Sodium 40 Mg/0.4 Ml Syringe) 40 mg SUBCUT Q24H [facility] Last Admin: 09/28/25 16:20 Dose: 40 mg Documented By: WILLIE Fluticasone/Vilanterol (Fluticasone/Vilanterol 200/25 Blst.W.Dev) 1 puff INHALE RDAILY [facility] Last Admin: 09/29/25 07:19 Dose: 1 puff Documented By: BRIONNA Folic Acid (Folic Acid 1 Mg Tablet) 1 mg PO DAILY [facility] Last Admin: 09/29/25 08:28 Dose: 1 mg Documented By: WILLIE Furosemide (Furosemide 20 Mg Tablet) 20 mg PO DAILY [facility]; Protocol Last Admin: 09/29/25 08:29 Dose: 20 mg Documented By: WILLIE Ceftriaxone Sodium 1 gm/ (Sodium Chloride) 50 mls @ 100 mls/hr IV Q24H [facility] Stop: 10/06/25 07:44 Last Admin: 09/29/25 08:28 Dose: 100 mls/hr Documented By: WILLIE Ipratropium [place] (Ipratropium [place] Osorio 0.06 % 15 Ml [place]) 2 spray NOSTRIL-B TID PRN PRN Reason: allergies Magnesium Hydroxide (Milk Of Magnesia 30 Ml Oral.Susp) 30 ml PO DAILY PRN PRN Reason: Constipation Meclizine HCl (Meclizine Hcl 25 Mg Tablet) 25 mg PO Q8H PRN PRN Reason: Vertigo Melatonin (Melatonin 3 Mg Tablet) 6 mg PO BEDTIME PRN PRN Reason: Insomnia Ondansetron HCl (Ondansetron Hcl 4 Mg/2 Ml Vial) 4 mg IVPUSH Q8H PRN PRN Reason: Nausea and Vomiting Sodium Chloride (0.9 % Sodium Chloride Flush 3 Ml Syringe) 3 ml IVFLUSH QSHIFT [facility] Last Admin: 09/29/25 08:30 Dose: 3 ml Documented By: WILLIE Labs 09/28/25 16:16 09/28/25 16:16 Labs: Laboratory Results - last 24 hr 09/28/25 16:16 MCV 93.9 MCH 31.3 MCHC 33.3 RDW 19.3 H Plt Count 214 MPV 10.0 Absolute Nucleated RBC 0.000 Nucleated RBC % (auto) 0.0 Anion Gap 11 L Estim Creat Clear Calc 77.5 Estimated GFR > 60 Random Glucose 135 H Uric Acid 5.8 Calcium 7.5 L Total Bilirubin 0.1 AST 39 H ALT 9 Alkaline Phosphatase 145 H Total Protein 5.1 L Albumin 2.1 L Microbiology Microbiology Results: Microbiology 09/23/25 10:54 Blood Culture - Final Blood - Venous No growth after 5 days. 09/23/25 10:51 Blood Culture - Final Blood - Venous No growth after 5 days. 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 Required 4 units of packed red blood cells on 09/23, 2 units on 09/24. Patient received IV Lasix on 09/26, with chest x ray showing pulmonary edema. Acute hypoxic respiratory failure, likely multifactorial in origin, improved after diuretics given Suspect Pneumonia -Hemoglobin on admission 5.5, on 09/24 6.5, on 09/25 8.9 -status post 6 units of packed red blood cells since admission -chest x-ray with pulmonary mass and right upper lobe, repeat chest x ray on 09/27 with worsening pulmonary edema, x ray on 09/28 with pneumonia -Monitor for any signs of bleeding, we will transfuse for hemoglobin less than 7 -Initiate rocephin and azithromycin -monitor and titrate oxygen for SpO2 greater than 90%. -Pulmonology consulted and following -Incentive spirometer Mild HFpEF Continue home dose of lasix Monitor for signs of fluid overload HTN, chronic -continue amlodipine, Lasix, monitor adjust medications accordingly COPD -continue with nebulizing treatments and home inhalers -monitor and titrate oxygen for SpO2 greater than 90% as stated above. [id number] lung carcinoma with metastasis currently on chemotherapy 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 -imaging reviewed -continue per [facility] [place] Oncology recommendations -monitor for any signs of worsening shortness of breath, hemoptysis Ambulatory dysfunction Generalized weakness -PT/OT consulted DVT Ppx Lovenox Code Status: Full Disposition: All questions and concerns with the patient were answered to satisfaction. All pertinent clinical documents, images and labs were reviewed. Patient states that he agrees on having oxygen at home Total time managing care of this patient today: 55 minutes. Quality Stroke Does the patient have a stroke diagnosis?: No VTE Prior VTE?: No VTE Risk Level:: Medical - moderate - high VTE Device Contraindication: Treatment Not Indicated VTE Drug Contraindication: N/A - Med Ordered
[2025-09-29 11:15] VITALS: PULSE 98; RESP 18; O2SAT 95
[2025-09-29] MEDS: Albuterol/Iprat 2.5/0.5MG 3 ML AMPUL.NEB INHALE (11:15)
[2025-09-29 15:45] VITALS: BP 128/65; PULSE 106; RESP 16; TEMP 36.9; O2SAT 93
[2025-09-29 20:00] VITALS: BP 119/60; PULSE 107; RESP 18; TEMP 37.3; O2SAT 95
[2025-09-30] VITALS (8 sets, daily range): BP systolic 103–118; BP diastolic 63–70; PULSE 82–98; RESP 16–19; TEMP 36.3–36.8; O2SAT 90–132
[2025-09-30] MEDS: Fluticasone/Vilanterol 200/25 BLST.W.DEV 1 PUFF INHALE (08:00)
[2025-09-30] MEDS: 0.9 % Sodium Chloride Flush 3 ML SYRINGE IVFLUSH ×3 (08:30→19:50)
--- NOTE | 2025-09-30 08:32 | HO.PM.IMPN ---
Subjective Subjective Date of Service: 09/30/25 Interval History: Patient seen and examined at bedside this morning, patient mentions that his breathing has improved, continue to work with PT/OT, continues on IV antibiotics. Review of Systems Review of Systems: Yes all other systems are reviewed and are negative Physical Exam Exam: Exam: General: AxOx3, on acute respiratory distress with supplemental oxygen, improved Head: AT/NC ENT: Moist mucous membranes Neck: supple CVS; RRR, S1 S2 normal Lungs: Coarse bilateral breath sounds, rales in bases, improved Abd: Soft non tender, non distended Ext: No edema and no calf tenderness MSK: moving all 4 limbs Skin: No cyanosis or edema Psych: Cooperative with exam Neurology: no focal deficit Vital Signs: Vital Signs: Last Vital Signs Temp 97.8 F 09/30/25 07:00 Pulse 87 09/30/25 08:03 Resp 17 09/30/25 08:03 BP 103/64 09/30/25 07:00 Pulse Ox 93 09/30/25 07:00 O2 Del Method Room Air 09/30/25 07:00 O2 Flow Rate 2 09/30/25 03:04 BMI result Body Mass Index 25.8 Objective Data Active Medications Acetaminophen (Acetaminophen 325 Mg Tablet) 650 mg PO Q6H PRN PRN Reason: Pain, Mild 1-3,fever,headache Last Admin: 09/28/25 07:53 Dose: 650 mg Documented By: WILLIE Albuterol/Ipratropium (Albuterol/Iprat 2.5/0.5mg 3 Ml Ampul.Neb) 3 ml INHALE RQ6H [facility] Last Admin: 09/30/25 05:10 Dose: Not Given Documented By: GEORGIA Non-Admin Reason: Patient Refused Amlodipine Besylate (Amlodipine Besylate 10 Mg Tablet) 10 mg PO DAILY [facility]; Protocol Last Admin: 09/29/25 08:28 Dose: 10 mg Documented By: WILLIE Azithromycin (Azithromycin 500 Mg Tablet) 500 mg PO Q24H [facility] Stop: 10/04/25 07:44 Last Admin: 09/29/25 08:28 Dose: 500 mg Documented By: WILLIE Calcium Carbonate (Calcium Carbonate 750 Mg Tab.Chew) 750 mg PO Q4H PRN PRN Reason: Heartburn Enoxaparin Sodium (Enoxaparin Sodium 40 Mg/0.4 Ml Syringe) 40 mg SUBCUT Q24H [facility] Last Admin: 09/29/25 16:09 Dose: 40 mg Documented By: WILLIE Fluticasone/Vilanterol (Fluticasone/Vilanterol 200/25 Blst.W.Dev) 1 puff INHALE RDAILY [facility] Last Admin: 09/30/25 08:00 Dose: 1 puff Documented By: ADELINE Folic Acid (Folic Acid 1 Mg Tablet) 1 mg PO DAILY [facility] Last Admin: 09/29/25 08:28 Dose: 1 mg Documented By: WILLIE Furosemide (Furosemide 20 Mg Tablet) 20 mg PO DAILY [facility]; Protocol Last Admin: 09/29/25 08:29 Dose: 20 mg Documented By: WILLIE Ceftriaxone Sodium 1 gm/ (Sodium Chloride) 50 mls @ 100 mls/hr IV Q24H [facility] Stop: 10/06/25 07:44 Last Infusion: 09/29/25 09:27 Dose: Infused Documented By: WILLIE Ipratropium [place] (Ipratropium [place] Osorio 0.06 % 15 Ml [place]) 2 spray NOSTRIL-B TID PRN PRN Reason: allergies Magnesium Hydroxide (Milk Of Magnesia 30 Ml Oral.Susp) 30 ml PO DAILY PRN PRN Reason: Constipation Meclizine HCl (Meclizine Hcl 25 Mg Tablet) 25 mg PO Q8H PRN PRN Reason: Vertigo Melatonin (Melatonin 3 Mg Tablet) 6 mg PO BEDTIME PRN PRN Reason: Insomnia Ondansetron HCl (Ondansetron Hcl 4 Mg/2 Ml Vial) 4 mg IVPUSH Q8H PRN PRN Reason: Nausea and Vomiting Sodium Chloride (0.9 % Sodium Chloride Flush 3 Ml Syringe) 3 ml IVFLUSH QSHIFT [facility] Last Admin: 09/30/25 01:51 Dose: Not Given Documented By: DEMETRIO Non-Admin Reason: Previously Administered Labs 09/30/25 08:32 09/30/25 08:32 Assessment and Plan (1) 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: Status: Acute (2) COPD (chronic obstructive pulmonary disease): Status: Acute (3) Acute hypoxic respiratory failure: Status: Acute (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 Required 4 units of packed red blood cells on 09/23, 2 units on 09/24. Patient received IV Lasix on 09/26, with chest x ray showing pulmonary edema. Patient persisted with shortness of breath, repeat xray on 09/28 showing Pneumonia Acute hypoxic respiratory failure, likely multifactorial in origin Pneumonia -Hemoglobin on admission 5.5, on 09/24 6.5, on 09/25 8.9 -status post 6 units of packed red blood cells since admission -chest x-ray with pulmonary mass and right upper lobe, repeat chest x ray on 09/27 with worsening pulmonary edema, x ray on 09/28 with pneumonia -Monitor for any signs of bleeding, we will transfuse for hemoglobin less than 7 -Initiate rocephin and azithromycin -monitor and titrate oxygen for SpO2 greater than 90%. -Pulmonology consulted and following -Incentive spirometer Mild HFpEF Continue home dose of lasix Monitor for signs of fluid overload HTN, chronic -continue amlodipine, Lasix, monitor adjust medications accordingly COPD -continue with nebulizing treatments and home inhalers -monitor and titrate oxygen for SpO2 greater than 90% as stated above. Mga-vwqbr-sptw lung carcinoma with metastasis currently on chemotherapy 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 -imaging reviewed -[place] [facility] -monitor for any signs of worsening shortness of breath, hemoptysis Ambulatory dysfunction Generalized weakness -PT/OT consulted DVT Ppx Lovenox Code Status: Full Disposition: All questions and concerns with the patient were answered to satisfaction. All pertinent clinical documents, images and labs were reviewed. Patient states that he agrees on having oxygen at home Total time managing care of this patient today: 55 minutes. Quality Stroke Does the patient have a stroke diagnosis?: No VTE Prior VTE?: No VTE Risk Level:: Medical - moderate - high VTE Device Contraindication: Treatment Not Indicated VTE Drug Contraindication: N/A - Med Ordered
[2025-09-30 09:03] LABS: MANUAL DIFF FLAG NO
[2025-09-30 09:06] LABS: Hematocrit 27.1 % (42.0-52.0); Hemoglobin 9.2 g/dl (14.0-18.0); Imm Gran Abs Auto 0.21 X10*3/uL (0.00-0.03); Imm Gran Pct Auto 1.6 % (0.0-0.4); Lymphocytes Absolute Auto 1.8 X10*3/uL (1.2-4.9); Mean Corpuscular HGB Conc 33.9 g/dl (31.0-36.0); Mean Corpuscular Hemoglobin 31.8 pg (27.0-33.0); Mean Corpuscular Volume 93.8 fL (80.0-98.0); NRBC Abs Auto 0.000 X10*3/uL (0.0-0.012); NRBC Pct Auto 0.0 /100WBC (0.0-0.2); Platelet Count 199 X10*3/uL (160-400); Red Blood Count 2.89 X10*6/uL (4.60-5.80); White Blood Count 13.3 X10*3/uL (4.8-10.8)
[2025-09-30 09:25] LABS: Anion Gap 11 (12-20); Blood Urea Nitrogen 15 mg/dL (9-16); Calcium 7.7 mg/dL (8.4-10.2); Carbon Dioxide 31 mmol/L (22-29); Chloride 96 mmol/L (96-108); Creatinine Clr Calc Pharmacy 106.5; Estimated Glomerular Filt Rate > 60; Potassium 3.2 mmol/L (3.3-5.1); Sodium 135 mmol/L (135-145)
--- NOTE | 2025-09-30 10:46 | P.CDIM_ITS ---
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 Please review below and update the documentation accordingly. Clinical Indicators: symptomatic Anemia requiring 6 units pRBCs since admission monitor s/s bleeding transfuse for HGB < 7 PMH: lung CA mets to liver, on chemo Based on the above, could you clarify which of the following is the most likely type of anemia you are evaluating, treating, and/or monitoring? 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 Please use your independent medical judgment in providing your response. THIS QUERY IS PART OF THE PERMANENT MEDICAL RECORD
[2025-09-30] MEDS: Albuterol/Iprat 2.5/0.5MG 3 ML AMPUL.NEB INHALE (11:37)
--- NOTE | 2025-09-30 14:50 | MHC.CM.PN ---
EMR REVIEWED AND CM MET WITH PT AT BEDSIDE. PT CONTINUES TO DECLINE STR AND WOULD LIKE TO GO HOME AND RESUME SERVICES WITH [facility]. PT MAY NEED BLS HOME. CM WILL CONTINUE TO FOLLOW FOR ANY CHANGE TO DC PLAN/NEEDS.
[2025-10-01] VITALS (7 sets, daily range): BP systolic 107–124; BP diastolic 57–79; PULSE 80–97; RESP 16–18; TEMP 36.1–37.4; O2SAT 89–96
[2025-10-01] MEDS: Fluticasone/Vilanterol 200/25 BLST.W.DEV 1 PUFF INHALE (08:21)
--- NOTE | 2025-10-01 10:30 | PC.NURSE ---
During rounds, spoke with provider Khris Aguiar regarding hearing irregularity of heart rhythm, patient asymptomatic, and patient on PO Lasix with no recent BMP. No new orders from provider at this time.
[2025-10-01] MEDS: Potassium Chloride Packet 20 MEQ PACKET 40 MEQ PO (13:28)
--- NOTE | 2025-10-01 14:00 | HO.SKINPHOTO ---
Location: Location: Location: Location:
--- NOTE | 2025-10-01 14:04 | MHC.CM.PN ---
Met with patient to discuss the DP. PT rec is STR. Patient is willing to go to a [facility]. He has accepted a bed at [facility]. A request to initiate insurance auth has been made. DP [facility] via S.
--- NOTE | 2025-10-01 15:06 | P.PNIM_ITS ---
Subjective Subjective Date of Service: 10/01/25 Interval History: Patient seen and examined at bedside this morning, patient was unable to go to the bathroom by himself, patient agreed in going for short-term rehab, as he now understands that he is not able to take care of himself at this time. Review of Systems Review of Systems: Yes all other systems are reviewed and are negative Physical Exam 2 Exam: Exam: General: AxOx3, on acute respiratory distress with supplemental oxygen, frail Head: AT/NC ENT: Moist mucous membranes Neck: supple CVS; RRR, S1 S2 normal Lungs: Coarse bilateral breath sounds, rales in bases, improved Abd: Soft non tender, non distended Ext: No edema and no calf tenderness MSK: moving all 4 limbs Skin: No cyanosis or edema Psych: Cooperative with exam Neurology: no focal deficit Vital Signs: Vital Signs: Last Vital Signs Temp 96.9 F 10/01/25 07:50 Pulse 97 10/01/25 13:27 Resp 16 10/01/25 09:32 BP 124/70 10/01/25 13:27 Pulse Ox 93 10/01/25 13:27 O2 Del Method Room Air 10/01/25 13:27 O2 Flow Rate 2 09/30/25 03:04 BMI result Body Mass Index 25.8 Objective Data Active Medications Acetaminophen (Acetaminophen 325 Mg Tablet) 650 mg PO Q6H PRN PRN Reason: Pain, Mild 1-3,fever,headache Last Admin: 09/28/25 07:53 Dose: 650 mg Documented By: WILLIE Amlodipine Besylate (Amlodipine Besylate 10 Mg Tablet) 10 mg PO DAILY [facility]; Protocol Last Admin: 10/01/25 09:34 Dose: 10 mg Documented By: CHEPE Azithromycin (Azithromycin 500 Mg Tablet) 500 mg PO Q24H [facility] Stop: 10/04/25 07:44 Last Admin: 10/01/25 08:53 Dose: 500 mg Documented By: CHEPE Calcium Carbonate (Calcium Carbonate 750 Mg Tab.Chew) 750 mg PO Q4H PRN PRN Reason: Heartburn Enoxaparin Sodium (Enoxaparin Sodium 40 Mg/0.4 Ml Syringe) 40 mg SUBCUT Q24H [facility] Last Admin: 09/30/25 16:30 Dose: 40 mg Documented By: HO.DOBROB Fluticasone/Vilanterol (Fluticasone/Vilanterol 200/25 Blst.W.Dev) 1 puff INHALE RDAILY [facility] Last Admin: 10/01/25 08:21 Dose: 1 puff Documented By: ADELINE Folic Acid (Folic Acid 1 Mg Tablet) 1 mg PO DAILY [facility] Last Admin: 10/01/25 09:34 Dose: 1 mg Documented By: CHEPE Furosemide (Furosemide 20 Mg Tablet) 20 mg PO DAILY [facility]; Protocol Last Admin: 10/01/25 13:27 Dose: 20 mg Documented By: CHEPE Comments: waited to verify with provider due to previous potassium level and irregularity in heart rhythm - okay to administer per provider. Ceftriaxone Sodium 1 gm/ (Sodium Chloride) 50 mls @ 100 mls/hr IV Q24H [facility] Stop: 10/06/25 07:44 Last Infusion: 10/01/25 09:29 Dose: Infused Documented By: CHEPE Ipratropium [place] (Ipratropium [place] Osorio 0.06 % 15 Ml [place]) 2 spray NOSTRIL-B TID PRN PRN Reason: allergies Magnesium Hydroxide (Milk Of Magnesia 30 Ml Oral.Susp) 30 ml PO DAILY PRN PRN Reason: Constipation Meclizine HCl (Meclizine Hcl 25 Mg Tablet) 25 mg PO Q8H PRN PRN Reason: Vertigo Melatonin (Melatonin 3 Mg Tablet) 6 mg PO BEDTIME PRN PRN Reason: Insomnia Ondansetron HCl (Ondansetron Hcl 4 Mg/2 Ml Vial) 4 mg IVPUSH Q8H PRN PRN Reason: Nausea and Vomiting Sodium Chloride (0.9 % Sodium Chloride Flush 3 Ml Syringe) 3 ml IVFLUSH QSHIFT [facility] Last Admin: 10/01/25 08:53 Dose: Not Given Documented By: CHEPE Non-Admin Reason: Unable to Scan Barcode Labs 09/30/25 08:32 09/30/25 08:32 Assessment and Plan (1) 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: Status: Acute (2) COPD (chronic obstructive pulmonary disease): Status: Acute (3) Acute hypoxic respiratory failure: Status: Acute (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 Required 4 units of packed red blood cells on 09/23, 2 units on 09/24. Patient received IV Lasix on 09/26, with chest x ray showing pulmonary edema. Patient persisted with shortness of breath, repeat xray on 09/28 showing Pneumonia. patient initiate on IV antiobiocs, patient previously refused in goint to [facility], on 10/01 after trying to use the bathroom due to weakness, accepted in going to rehab Acute hypoxic respiratory failure, likely multifactorial in origin Pneumonia -Hemoglobin on admission 5.5, on 09/24 6.5, on 09/25 8.9 -status post 6 units of packed red blood cells since admission -chest x-ray with pulmonary mass and right upper lobe, repeat chest x ray on 09/27 with worsening pulmonary edema, x ray on 09/28 with pneumonia -Monitor for any signs of bleeding, we will transfuse for hemoglobin less than 7 -Continue rocephin IV 1gr q 24hrs x 7 days and azithromycin 500mg qd x 5 days -monitor and titrate oxygen for SpO2 greater than 90%. -Pulmonology consulted and following -Incentive spirometer Mild HFpEF Continue home dose of lasix Monitor for signs of fluid overload HTN, chronic -continue amlodipine, Lasix, monitor adjust medications accordingly COPD -continue with nebulizing treatments and home inhalers -monitor and titrate oxygen for SpO2 greater than 90% as stated above. Jaj-kajgu-[id number] lung carcinoma with metastasis currently on chemotherapy 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 -imaging reviewed -continue per [facility] [place] Oncology recommendations -monitor for any signs of worsening shortness of breath, hemoptysis Ambulatory dysfunction Generalized weakness -PT/OT consulted DVT Ppx Lovenox Code Status: Full Disposition: All questions and concerns with the patient were answered to satisfaction. All pertinent clinical documents, images and labs were reviewed. Patient states that he agrees on having oxygen at home Total time managing care of this patient today: 55 minutes. Quality Stroke Does the patient have a stroke diagnosis?: No VTE Prior VTE?: No VTE Risk Level:: Medical - moderate - high VTE Device Contraindication: Treatment Not Indicated VTE Drug Contraindication: N/A - Med Ordered
--- NOTE | 2025-10-02 | ECG_ITS ---
Test Reason : CHEST PAIN Blood Pressure : */* mmHG Vent. Rate : 101 BPM Atrial Rate : * BPM P-R Int : * ms QRS Dur : 76 ms QT Int : 382 ms P-R-T Axes : * 38 67 degrees QTcB Int : 495 ms Atrial fibrillation with rapid ventricular response with premature ventricular or aberrantly conducted complexes Abnormal ECG When compared with ECG of 24-Sep-2025 22:55, Vent. rate has increased by 40 bpm QRS axis Shifted left Criteria for Lateral infarct are no longer Present Nonspecific T wave abnormality, improved in Anterolateral leads Referred By: Natanael Horowitz Electronically Signed By: NICOLAS CAMPOS MD
[2025-10-02 03:33] VITALS: BP 121/69; PULSE 89; RESP 16; TEMP 36.5; O2SAT 93
[2025-10-02 05:51] LABS: Hematocrit 26.8 % (42.0-52.0); Hemoglobin 9.0 g/dl (14.0-18.0); Mean Corpuscular HGB Conc 33.6 g/dl (31.0-36.0); Mean Corpuscular Hemoglobin 31.5 pg (27.0-33.0); Mean Corpuscular Volume 93.7 fL (80.0-98.0); NRBC Abs Auto 0.000 X10*3/uL (0.0-0.012); NRBC Pct Auto 0.0 /100WBC (0.0-0.2); Platelet Count 249 X10*3/uL (160-400); Red Blood Count 2.86 X10*6/uL (4.60-5.80); White Blood Count 10.6 X10*3/uL (4.8-10.8)
[2025-10-02 06:04] LABS: Anion Gap 11 (12-20); Blood Urea Nitrogen 15 mg/dL (9-16); Calcium 7.9 mg/dL (8.4-10.2); Carbon Dioxide 30 mmol/L (22-29); Chloride 100 mmol/L (96-108); Creatinine Clr Calc Pharmacy 107.9; Estimated Glomerular Filt Rate > 60; Potassium 3.7 mmol/L (3.3-5.1); Sodium 137 mmol/L (135-145)
[2025-10-02 06:05] LABS: Magnesium 1.6 mg/dL (1.6-2.6)
[2025-10-02 07:34] VITALS: BP 127/58; PULSE 72; RESP 18; TEMP 36.8; O2SAT 93
[2025-10-02] MEDS: 0.9 % Sodium Chloride Flush 3 ML SYRINGE IVFLUSH (08:13)
[2025-10-02 09:35] LABS: Troponin-I High Sensitivity 5.3 ng/L (<3.5-35.0)
--- NOTE | 2025-10-02 10:44 | HO.PM.IMPN ---
Subjective Subjective Date of Service: 10/02/25 Interval History: c/o chest pain since last night, ECG show new AFIB with RVR normal troponin i Review of Systems Review of Systems: Yes all other systems are reviewed and are negative Physical Exam Exam: Exam: General: AxOx3, on acute respiratory distress with supplemental oxygen, frail CVS; iregular, S1 S2 normal Lungs: Coarse bilateral breath sounds, rales in bases, improved Abd: Soft non tender, non distended Ext: No edema and no calf tenderness MSK: moving all 4 limbs Skin: No cyanosis or edema Psych: Cooperative with exam Neurology: no focal deficit Vital Signs: Vital Signs: Last Vital Signs Temp 98.3 F 10/02/25 07:34 Pulse 72 10/02/25 07:34 Resp 18 10/02/25 07:34 BP 127/58 L 10/02/25 07:34 Pulse Ox 93 10/02/25 07:34 O2 Del Method Room Air 10/02/25 07:34 O2 Flow Rate 2 09/30/25 03:04 BMI result Body Mass Index 25.8 Objective Data Active Medications Acetaminophen (Acetaminophen 325 Mg Tablet) 650 mg PO Q6H PRN PRN Reason: Pain, Mild 1-3,fever,headache Last Admin: 09/28/25 07:53 Dose: 650 mg Documented By: WILLIE Amlodipine Besylate (Amlodipine Besylate 10 Mg Tablet) 10 mg PO DAILY [facility]; Protocol Last Admin: 10/02/25 08:13 Dose: 10 mg Documented By: KORINA Azithromycin (Azithromycin 500 Mg Tablet) 500 mg PO Q24H [facility] Stop: 10/04/25 07:44 Last Admin: 10/02/25 08:42 Dose: 500 mg Documented By: KORINA Calcium Carbonate (Calcium Carbonate 750 Mg Tab.Chew) 750 mg PO Q4H PRN PRN Reason: Heartburn Enoxaparin Sodium (Enoxaparin Sodium 40 Mg/0.4 Ml Syringe) 40 mg SUBCUT Q24H [facility] Last Admin: 10/01/25 15:29 Dose: 40 mg Documented By: CHEPE Fluticasone/Vilanterol (Fluticasone/Vilanterol 200/25 Blst.W.Dev) 1 puff INHALE RDAILY [facility] Last Admin: 10/02/25 08:28 Dose: Not Given Documented By: ADELINE Non-Admin Reason: Med Not Available Folic Acid (Folic Acid 1 Mg Tablet) 1 mg PO DAILY [facility] Last Admin: 10/02/25 08:12 Dose: 1 mg Documented By: KORINA Furosemide (Furosemide 20 Mg Tablet) 20 mg PO DAILY [facility]; Protocol Last Admin: 10/02/25 08:12 Dose: 20 mg Documented By: KORINA Ceftriaxone Sodium 1 gm/ (Sodium Chloride) 50 mls @ 100 mls/hr IV Q24H [facility] Stop: 10/06/25 07:44 Last Infusion: 10/02/25 08:45 Dose: Infused Documented By: KORINA Ipratropium [place] (Ipratropium [place] Osorio 0.06 % 15 Ml [place]) 2 spray NOSTRIL-B TID PRN PRN Reason: allergies Magnesium Hydroxide (Milk Of Magnesia 30 Ml Oral.Susp) 30 ml PO DAILY PRN PRN Reason: Constipation Meclizine HCl (Meclizine Hcl 25 Mg Tablet) 25 mg PO Q8H PRN PRN Reason: Vertigo Melatonin (Melatonin 3 Mg Tablet) 6 mg PO BEDTIME PRN PRN Reason: Insomnia Morphine Sulfate (Morphine Sulfate 4 Mg/Ml [place]) 2 mg IVPUSH Q4H PRN; Protocol PRN Reason: Pain, Severe (Pain Scale 7-10) Last Admin: 10/02/25 07:54 Dose: 2 mg Documented By: KORINA Ondansetron HCl (Ondansetron Hcl 4 Mg/2 Ml Vial) 4 mg IVPUSH Q8H PRN PRN Reason: Nausea and Vomiting Sodium Chloride (0.9 % Sodium Chloride Flush 3 Ml Syringe) 3 ml IVFLUSH QSHIFT [facility] Last Admin: 10/02/25 08:13 Dose: 3 ml Documented By: KORINA Labs 10/02/25 05:32 10/02/25 05:32 Labs: Laboratory Results - last 24 hr 10/02/25 10/02/25 05:32 09:01 MCV 93.7 MCH 31.5 MCHC 33.6 RDW 19.2 H Plt Count 249 D MPV 10.0 Absolute Nucleated RBC 0.000 Nucleated RBC % (auto) 0.0 Anion Gap 11 L Estim Creat Clear Calc 107.9 Estimated GFR > 60 Random Glucose 81 Calcium 7.9 L Magnesium 1.6 Troponin I High Sens 5.3 Assessment and Plan (1) 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: Status: Acute (2) COPD (chronic obstructive pulmonary disease): Status: Acute (3) Acute hypoxic respiratory failure: Status: Acute (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 Required 4 units of packed red blood cells on 09/23, 2 units on 09/24. Patient received IV Lasix on 09/26, with chest x ray showing pulmonary edema. Patient persisted with shortness of breath, repeat xray on 09/28 showing Pneumonia. patient initiate on IV antiobiocs, patient previously refused in goint to [facility], on 10/01 after trying to use the bathroom due to weakness, accepted in going to rehab Acute hypoxic respiratory failure, likely multifactorial in origin--PNA, anemia hypoxia resolved. PNA, has completed Abx with Rocephain x 7 d and Azithro x 5 dd, wa seen by pulm, CXR 10/04, increased consolodiaton and having chest pain, and tachy, get CTA of chest Anemia, acute on chronic likely from malignancy, s/p 6 units H/H has been stable Mild HFpEF Continue home dose of lasix Monitor for signs of fluid overload Tachycardia overnight, ECG PAC not AFIB Monitor HTN, chronic continue amlodipine, Lasix, monitor adjust medications accordingly COPD, no exacerbation at this time continue inhalers, keep sat 88 to 92 Ltc-kurhm-fetb lung carcinoma with metastasis currently on chemotherapy 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 -imaging reviewed -continue per [facility] [place] Oncology recommendations -monitor for any signs of worsening shortness of breath, hemoptysis Ambulatory dysfunction Generalized weakness -PT/OT consulted DVT Ppx Lovenox Code Status: Full Disposition: All questions and concerns with the patient were answered to satisfaction. All pertinent clinical documents, images and labs were reviewed. Patient states that he agrees on having oxygen at home Total time managing care of this patient today: 55 minutes. Quality Stroke Does the patient have a stroke diagnosis?: No VTE Prior VTE?: No VTE Risk Level:: Medical - moderate - high VTE Device Contraindication: Treatment Not Indicated VTE Drug Contraindication: N/A - Med Ordered
[2025-10-02 11:57] LABS: Troponin-I High Sensitivity 4.6 ng/L (<3.5-35.0)
--- NOTE | 2025-10-02 12:00 | CA_ITS ---
Transthoracic Echocardiogram Patient (Last, First, Middle): Hari Page J Gender: M Date of : 1955 Age: 70 Procedure Date: 10/02/2025 Procedure Type: Transthoracic Echocardiogram Location: S3E Height: 185.42 cm Weight: 88.45 kg BSA: 2.13 m2 Heart Rate: 124 bpm BP: 127 / 58 mmHg Foster Parent: FELISA Referring MD: Osiel Schafer MD Stenciler: Carlton Reese MD Symptoms: afib Study Quality: Fair/limited ordered for wma ECG Rhythm: Sinus tachycardia with PACs Conclusions: - 1. Moderate circumferential pericardial effusion more prominent near the right-sided chambers 2. Hyperdynamic LV EF of greater than 70% Findings Procedure Information Contrast agent, definity, is being given per protocol without apparent complications. Left Ventricle Normal left ventricular cavity size. The left ventricular systolic function is hyperdynamic. The visually estimated ejection fraction is >70%. Diastolic function is indeterminate on the basis of available data. Pericardium/Pleural There is a moderate circumferential pericardial effusion. The inferior vena cava is normal in size with preserved respiratory variability. circumferential pericardial effusion which is somewhat more loculated and moderate near the right-sided chambers. There was no clear evidence of tamponade with IVC in collapsible phase. Prior Study Comparison Changes noted compared to prior study dated: 08/28/2025. moderate pericardial effusion noted. Findings discussed with Measurements 2D Linear Measurements LVOT Diam: 2.30 3.0+(-)1.3 cm 2D Systolic Function EF 4C: 64.90 >55% EF 2C: 77.60 >55% EF BiP: 72.70 >55% Mitral Valve MV Pk E: 0.57 MV PK A: 0.75 MV Decel Time: 133.00 E/A: 0.80 E'Lateral: 6.09 E'Medial: 6.85 E/E' Med: 8.30 E/E' Lat: 9.40 PHT: 39.00 MVA PHT: 5.64 Decel [place]: 4.28 LVOT LVOT Pk Be: 0.96 LVOT Mn Be: 0.64 LVOT VTI: 0.17 LVOT Pk Grad: 4.00 LVOT Mn Grad: 2.00 LVOT Diam: 2.30 LVOT Area: 4.15 Diastolic Function MV Pk E: 0.57 MV Pk A: 0.75 E/A: 0.80 E'Medial: 6.85 E/E' Med: 8.30 E' Laterial: 6.09 E/E' Lat: 9.40 Tricuspid Valve RA Press: 8.00 Updated in Other Vendor System with Status of Final Carlton Reese MD electronically signed on 10/02/2025 4:24:26 PM with status of Final
--- NOTE | 2025-10-02 14:39 | HO.WOUND ---
Wound Consult: Follow up 70yr old male? admitted to [facility] [place] on 09/23/25 - See progress notes and H&P for detailed history.? Wound consult placed for Sacrum, Bilateral Heels and Left elbow.? Patient agreeable to assessment and photo documentation.? 09/27/25 10/02/25 - Overall improving wound bed - dry improving tissue noted. - no new topical recommendations needed at this time. Sacrum / Buttock Etiology: MASD with Friction ?? Wound Bed: improving linear friction lines - remains intact and blanchable Drainage / Odor: None Edges: ?well defined So wound: ? No Induration, Fluctuance or Warmth noted Pain: tenderness reported Goals of Treatment: ? continue off loading - foam dressing and waffle cushion in use already 09/27/25 10/02/25 - overall improving continue ot protect from friction and dislodging scab - no new topical recommendations needed at this time. Left Elbow - stable scab abrasion. continue foam dressing Q 3 days. Right Heel 09/27/25 - not assessed today - per direct care team - remains intact pink and blanchable Etiology: Intact Red blanchable tissue no PI noted - off loaded with foam dressing and pillows. ? 09/27/25 10/02/25 - Todays assessment reveals DTI to the heel - previously documented site appears to be resolving and appears hyperpigmented at this time. however the inferior site callused was lifting removed with cleansing and reveals DTI in Evolution. at closer look in photo from 09/27/25 this was present at this time but this engineering writer did not appreciate the pigmentation changes under the callused dry skin. Today reveals DTI - recommend continue to off load and protect with foam dressing. Left Heel superior site Etiology: superior site Stage 1 Pressure Injury resolving Measurements: 0.5cm x 0.5cm x 0cm Wound Bed: intact red hyperpigmented nonblanchbale tissue Drainage / Odor: None Edges: ? Attached So wound: ? No Induration, Fluctuance or Warmth noted Pain: denies Goals of Treatment: ? Off load - foam applied and pillows in use Left Heel inferior site Etiology: Inferior site Deep Tissue Injury Measurements: 0.6cm x 0.6cm x 0cm Wound Bed: intact dark red maroon nonblanchbale tissue Drainage / Odor: None Edges: ? Attached So wound: ? No Induration, Fluctuance or Warmth noted Pain: denies Goals of Treatment: ? Off load - foam applied and pillows in use Right arm skin tear remains with appropriate topical orders in place. Recommendations: 1. Turn and Reposition every 2 hours and as needed for patient comfort.? Use pillows or wedges to support off loading positions. 2. Off Load all bony prominences with use of pillows and heel boots if needed.? Apply Preventative foams where needed. ? 3. Monitor for incontinence and moisture control, use barrier creams when needed for prevention and treatment. 4. Provide adequate and supplemental nutrition.? 5. Continue low air loss mattress. 6. When applicable maintain blood glucose levels per Providers order. Sacrum / Buttock left elbow and bilateral Heels - Off Load Pressure with Q2 hr turns and use of pillows - Routine cleansing.? Apply skin prep allow to dry.? Cover with foam dressing to aid in off loading and protection from friction. Change every 3 days and PRN. Re-consult wound care Nurse for wound deterioration or wound changes.
[2025-10-02] MEDS: iohexoL 350 MG/ML 100 ML INFUS..BTL 65 ML IV (15:08)
--- NOTE | 2025-10-02 15:24 | PC.NURSE ---
Notified Hanh @1400- HR keeps bouncing around 105-116. up to 120. he just states he doesnt feel well and not comfortable being DCd. Read but no response. notified roni @1525- Pt sleeping comfortably but HR living around 120-125. Awaiting orders/response
[2025-10-02 16:00] VITALS: BP 133/79; PULSE 116; RESP 20; TEMP 37.3; O2SAT 95
--- NOTE | 2025-10-02 16:08 | P.CNHO_ITS ---
Subjective - Subjective Chief complaint: Shortness of breath Patient: known to practice within the last 3 years Consult date: 10/02/25 Primary Care Provider: NELY Rich Manager Floor Utilized?: No - Palestinian Speaking HPI - Consult Narrative Reason for consult: Pulmonary embolism/lung cancer Narrative: Hari Page is a 70 year old male with advanced poorly differentiated lung cancer who has been receiving chemotherapy, admitted on 09/23/2025 for progressive dyspnea. Evaluation revealed hemoglobin of 5.5 gram/dL as well as elevated BNP. He received several units blood transfusion. Chest x-ray demonstrated known pulmonary mass in the right upper lobe and patchy airspace disease in the right lower lung suspicious for pneumonia. Patient was being treated for acute hypoxic respiratory failure secondary to pneumonia and severe anemia. He was started on Rocephin and azithromycin. Patient developed chest pain since last night, ECG showed new atrial fibrillation with RVR. CT angiogram performed 10/02/2025 showed acute pulmonary emboli, subsegmental branches in the left lower lobe. Malignancy in the right upper lobe. Bilateral pleural effusions, [id number] volume. Pericardial effusion, moderate volume and emphysema. Echocardiogram revealed moderate circumferential pericardial effusion more prominent near the right-sided chambers. [facility] Medical History: Medical History (Last Reviewed 10/02/25 @ 16:58 by Carlton Reese MD) Alcohol use disorder Anemia in chronic illness Cognitive disorder COPD (chronic obstructive pulmonary disease) Edema Hypertension Lung cancer Lung mass Lymphadenopathy Nicotine dependence, cigarettes, uncomplicated Pancreatic mass Pressure ulcer Rhabdomyolysis SVT (supraventricular tachycardia) Swelling of right hand Family History: Family History (Last Reviewed 10/02/25 @ 16:58 by Carlton Reese MD) Father No problems noted. Mother Lung cancer Family/Other Lung cancer Throat cancer Surgical History: Surgical History (Last Reviewed 10/02/25 @ 16:58 by Carlton Reese MD) History of colonoscopy History of lumbar laminectomy Social History: Social History (Last Reviewed 10/02/25 @ 16:58 by Carlton Reese MD) Living Situation History: Household Members: None Household Members Other:: pt lives alone Housing: Apartment Are you a primary resident care associate to a significant other at home: No Do you presently have visiting nurse or other home services: Yes Do you presently have visiting nurse or other home services comment: VNA and PT Tobacco History: Patient Tobacco Use Status: Current everyday Tobacco Tobacco use type: Cigarette Cigarette Packs Per Day: 1 Years Smoked: (onset 16yo, 1-1.5ppd x 53yrs, 60+PYH) e-Cigarette/Vaping Use: Currently Using Second Hand Smoke Exposure: No Advance Directives: Advance Directives Date on File: 12/14/22 Occupation Assessmet: service: No 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 Sex/Gender Assessment: Gender identity: Male Home Medications and Allergies Current Medications: Current Medications Acetaminophen (Acetaminophen 325 Mg Tablet) 650 mg PO Q6H PRN PRN Reason: Pain, Mild 1-3,fever,headache Last Admin: 09/28/25 07:53 Dose: 650 mg Amlodipine Besylate (Amlodipine Besylate 10 Mg Tablet) 10 mg PO DAILY [facility]; Protocol Last Admin: 10/02/25 08:13 Dose: 10 mg Azithromycin (Azithromycin 500 Mg Tablet) 500 mg PO Q24H [facility] Stop: 10/04/25 07:44 Last Admin: 10/02/25 08:42 Dose: 500 mg Calcium Carbonate (Calcium Carbonate 750 Mg Tab.Chew) 750 mg PO Q4H PRN PRN Reason: Heartburn Fluticasone/Vilanterol (Fluticasone/Vilanterol 200/25 Blst.W.Dev) 1 puff INHALE RDAILY [facility] Last Admin: 10/02/25 08:28 Dose: Not Given Folic Acid (Folic Acid 1 Mg Tablet) 1 mg PO DAILY [facility] Last Admin: 10/02/25 08:12 Dose: 1 mg Furosemide (Furosemide 20 Mg Tablet) 20 mg PO DAILY [facility]; Protocol Last Admin: 10/02/25 08:12 Dose: 20 mg Heparin Sodium (Porcine) (Heparin Sodium,Porcine 5,000 Unit/Ml Vial) 3,600 unit 40 unit/kg (3600 unit) IVPUSH PROTOCOL BOLUS PRN; Protocol PRN Reason: 40 unit/kg - Heparin Protocol Ceftriaxone Sodium 1 gm/ (Sodium Chloride) 50 mls @ 100 mls/hr IV Q24H [facility] Stop: 10/06/25 07:44 Last Infusion: 10/02/25 08:45 Dose: Infused Heparin Sodium/Sodium Chloride (Heparin Sodium,Porcine/1/2ns) 25,000 unit in 250 mls @ 0 mls/hr IVCONT .Q0M [facility]; Protocol Ipratropium Neihart (Ipratropium Neihart Osorio 0.06 % 15 Ml [place]) 2 spray NOSTRIL-B TID PRN PRN Reason: allergies Magnesium Hydroxide (Milk Of Magnesia 30 Ml Oral.Susp) 30 ml PO DAILY PRN PRN Reason: Constipation Meclizine HCl (Meclizine Hcl 25 Mg Tablet) 25 mg PO Q8H PRN PRN Reason: Vertigo Melatonin (Melatonin 3 Mg Tablet) 6 mg PO BEDTIME PRN PRN Reason: Insomnia Morphine Sulfate (Morphine Sulfate 4 Mg/Ml Cartridge) 2 mg IVPUSH Q4H PRN; Protocol PRN Reason: Pain, Severe (Pain Scale 7-10) Last Admin: 10/02/25 07:54 Dose: 2 mg Ondansetron HCl (Ondansetron Hcl 4 Mg/2 Ml Vial) 4 mg IVPUSH Q8H PRN PRN Reason: Nausea and Vomiting Sodium Chloride (0.9 % Sodium Chloride Flush 3 Ml Syringe) 3 ml IVFLUSH QSHIFT [facility] Last Admin: 10/02/25 15:51 Dose: Not Given Home Medications ?Medication ?Instructions ?Recorded ?Confirmed ?Type dexamethasone 4 mg tablet See Rx Instructions .Route .COMPLEX 08/27/25 09/23/25 History ipratropium bromide 42 mcg (0.06 2 spray intranasal TID PRN 08/27/2511/17 History %) nasal spray allergies furosemide 20 mg tablet (Lasix) 20 mg PO DAILY Weight gain 09/23/2511/17 History Allergies Allergy/AdvReac Type Severity Reaction Status Date / Time No Known Allergies Allergy Verified 09/23/25 09:19 Physical Exam Vital signs: Vital Signs Temp 98.3 F 10/02/25 07:34 Pulse 72 10/02/25 07:34 Resp 18 10/02/25 07:34 BP 127/58 L 10/02/25 07:34 Pulse Ox 93 10/02/25 07:34 O2 Del Method Room Air 10/02/25 07:34 O2 Flow Rate 2 09/30/25 03:04 Intake & Output 10/01/25 10/02/25 10/02/25 18:59 06:59 18:59 Intake Total 530 / 530 0 / 530 530 / 530 Output Total 450 / 950 500 / 950 900 / 900 Balance 80 / -420 -500 / -420 -370 / -370 Urine Output (Average ml/kg/hr) 0.42 0.47 0.84 Intake: Intake, Oral Amount 480 / 480 0 / 480 480 / 480 Intake, IV Amount 50 / 50 50 / 50 cefTRIAXone sodium 1 gm In 0.9 50 / 50 50 / 50 % Sodium Chloride 50 ml @ 100 mls/hr IV Q24H [facility] Rx#: [id number] Output: Output, Urine Amount 500 / 500 Output, Urine Amount (Catheter) 450 / 450 900 / 900 Male Purewick 450 / 450 900 / 900 Other: Meal Refused No No NPO No No Breakfast % Eaten 100% 0% Lunch % Eaten 25% 0% Eating (Feeding) Ability Independent Independent Urine purewick Urine Color Yellow Concentrated Yellow Weight 88.8 kg - Constitutional Present: moderate distress - Routine HEENT Exam Head: Present: normal inspection Eye: Present: conjunctivae pale - Routine Neck Exam Absent: tracheal deviation - Routine Respiratory Exam Present: accessory muscle use, decreased breath sounds - Routine Cardiovascular Exam Cardiovascular: Present: S1, S2, tachycardia - Routine Skin Exam Present: intact Hem/Onc Consult Result - Labs CBC & Chem 7: 10/02/25 05:32 10/02/25 05:32 Labs: Short CBC 10/02/25 Range/Units 05:32 WBC 10.6 (4.8-10.8) X10*3/uL Hgb 9.0 L (14.0-18.0) g/dl Hct 26.8 L (42.0-52.0) % Plt Count 249 D (160-400) X10*3/uL BMP 10/02/25 05:32 Sodium 137 Potassium 3.7 Chloride 100 Carbon Dioxide 30 H BUN 15 Creatinine 0.74 Calcium 7.9 L Assessment and Plan Patient Active problem list reviewed?: Yes (1) Non-small cell lung cancer Status: Chronic Assessment and plan: 1. This is a 70-year-old male diagnosed with [id number] lung cancer with liver metastasis diagnosed in July 2024. He has been receiving palliative chemotherapy with carboplatin, pemetrexed and pembrolizumab. Recently course complicated by severe anemia secondary to ongoing chemotherapy. He has been requiring blood transfusions. He presented on 09/23/2025 with worsening anemia and he was found to have acute hypoxic respiratory failure. He was diagnosed with severe anemia requiring blood transfusions as well as pneumonia for which he was receiving IV antibiotics. Patient developed new pulmonary symptoms of chest pain and worsening shortness of breath as well as cardiac arrhythmia, CT angiogram performed 10/02/2025 showed acute pulmonary emboli, subsegmental branches in the left lower lobe. Malignancy in the right upper lobe. Bilateral pleural effusions, [id number] volume. Pericardial effusion, moderate volume and emphysema. Echocardiogram revealed moderate circumferential pericardial effusion more prominent near the right-sided chambers. He has been receiving prophylactic Lovenox 40 mg subQ daily. He will need to be switched to therapeutic anticoagulation. Can initially be started on unfractionated heparin without bolus when cleared by Cardiology. He is awaiting pericardiocentesis. Evaluate pericardial fluid for cytology to look for malignant effusion. He has also developed worsening pleural effusions compared to previous scan in August. Overall prognosis is guarded. We will follow with you. Thank you for the consultation. - Time Spent With Patient Time Spent with Patient (in minutes): 25 Additional Coding: - Additional E/M codes Complex E/M visit Add On: CPT G2211
--- NOTE | 2025-10-02 16:24 | PM.CNCAR ---
History of Present Illness History of Present Illness Date of Service: 10/02/25 Requesting physician: [facility] Consult reason: chest pain and other (Cardiac arrhythmias) Chief complaint: Anemia Narrative: I was consulted to see Hari in cardiology consultation today for development of chest pain since last night. Patient said the chest pain started after midnight in his constant and severe in nature in the epigastric stuff xiphoid area. He said the symptoms are worse when he takes a deep breath and also tenderness to touch. Patient has no significant shortness of breath. EKGs was done which showed irregular heartbeat and there was concern for atrial fibrillation. Reviewing the EKGs appears to be patient sinus rhythm with frequent PACs and PVCs. Patient is very anxious about the chest pain. Patient admitted with shortness of breath with treatment for pneumonia. Patient has underlying COPD continues to smoke. Patient has advanced lung cancer with metastatic lung cancer currently being treated by Hematology and getting therapy. Patient was admitted with anemia and required multiple units of transfusion. Cardiology consult was sought for the chest pain and cardiac arrhythmias. At the time when I saw the patient in the morning patient appears anxious but hemodynamically stable. Subsequently had reviewed the echocardiogram as he had a CAT scan done because of chest pain which showed pulmonary embolism would also showed moderate pericardial effusion. Echocardiogram shows normal LV ejection fraction with confirmed moderate pericardial effusion without clear signs of tamponade. Review of Systems Constitutional: Constitutional: Reports malaise Eyes: Eyes: Reports no additional eye complaints Cardiovascular: Cardiovascular: Reports chest pain at rest, Denies rapid heart rate, Denies lightheadedness, Denies Loss of Consciousness, Denies palpitations, Reports dyspnea and Reports dyspnea on exertion Respiratory: Respiratory: Reports pain on inspiration, Reports dyspnea and Reports dyspnea on exertion Gastrointestinal: Gastrointestinal: Reports no additional gastrointestinal complaints Genitourinary: Genitourinary: Reports no additional male genitourinary complaints Musculoskeletal: Musculoskeletal: Reports no additional musculoskeletal complaints Integumentary/Breasts: Skin/Breast: Reports system reviewed and no additional complaints, except as docu Neurologic: Reports system reviewed and no additional complaints, except as documented Psychiatric: Psychiatric: Reports anxiety and Reports irritability Endocrine: Endocrine: Denies palpitations PMFSH Past Medical History Medical History Swelling of right hand Anemia in chronic illness Lung cancer COPD (chronic obstructive pulmonary disease) Pancreatic mass Lymphadenopathy Lung mass Nicotine dependence, cigarettes, uncomplicated SVT (supraventricular tachycardia) Edema Pressure ulcer Alcohol use disorder Cognitive disorder Rhabdomyolysis Hypertension Family History Family History Father No problems noted. Mother Lung cancer Family/Other Lung cancer Throat cancer Surgical History Surgical History History of colonoscopy History of lumbar laminectomy Social History Social History Household Members: None Household Members Other:: pt lives alone Housing: Apartment Are you a primary home health caregiver to a significant other at home: No Do you presently have visiting nurse or other home services: Yes (VNA and PT) Alcohol intake: current Alcohol intake frequency: 0-2 drinks per day Alcohol type: beer Comment: camera not available Patient Tobacco Use Status: Current everyday Tobacco user Tobacco use type: Cigarette Cigarette Packs Per Day: 1 Years Smoked: (onset 16yo, 1-1.5ppd x 53yrs, 60+PYH) e-Cigarette/Vaping Use: Currently Using Second Hand Smoke Exposure: No Advance Directives Date on File: 12/14/22 service: No 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 identity: Male Cognitive needs: Yes (Cane) Hearing needs: No Vision needs: Yes (Glasses) Meds Allergies Allergy/AdvReac Type Severity Reaction Status Date / Time No Known Allergies Allergy Verified 09/23/25 09:19 Active Medications: Current Medications Acetaminophen (Acetaminophen 325 Mg Tablet) 650 mg PO Q6H PRN PRN Reason: Pain, Mild 1-3,fever,headache Last Admin: 09/28/25 07:53 Dose: 650 mg Amlodipine Besylate (Amlodipine Besylate 10 Mg Tablet) 10 mg PO DAILY [facility]; Protocol Last Admin: 10/02/25 08:13 Dose: 10 mg Azithromycin (Azithromycin 500 Mg Tablet) 500 mg PO Q24H [facility] Stop: 10/04/25 07:44 Last Admin: 10/02/25 08:42 Dose: 500 mg Calcium Carbonate (Calcium Carbonate 750 Mg Tab.Chew) 750 mg PO Q4H PRN PRN Reason: Heartburn Fluticasone/Vilanterol (Fluticasone/Vilanterol 200/25 Blst.W.Dev) 1 puff INHALE RDAILY [facility] Last Admin: 10/02/25 08:28 Dose: Not Given Folic Acid (Folic Acid 1 Mg Tablet) 1 mg PO DAILY [facility] Last Admin: 10/02/25 08:12 Dose: 1 mg Furosemide (Furosemide 20 Mg Tablet) 20 mg PO DAILY [facility]; Protocol Last Admin: 10/02/25 08:12 Dose: 20 mg Heparin Sodium (Porcine) (Heparin Sodium,Porcine 5,000 Unit/Ml Vial) 3,600 unit 40 unit/kg (3600 unit) IVPUSH PROTOCOL BOLUS PRN; Protocol PRN Reason: 40 unit/kg - Heparin Protocol Ceftriaxone Sodium 1 gm/ (Sodium Chloride) 50 mls @ 100 mls/hr IV Q24H [facility] Stop: 10/06/25 07:44 Last Infusion: 10/02/25 08:45 Dose: Infused Heparin Sodium/Sodium Chloride (Heparin Sodium,Porcine/1/2ns) 25,000 unit in 250 mls @ 0 mls/hr IVCONT .Q0M [facility]; Protocol Ipratropium [place] (Ipratropium [place] Osorio 0.06 % 15 Ml [place]) 2 spray NOSTRIL-B TID PRN PRN Reason: allergies Magnesium Hydroxide (Milk Of Magnesia 30 Ml Oral.Susp) 30 ml PO DAILY PRN PRN Reason: Constipation Meclizine HCl (Meclizine Hcl 25 Mg Tablet) 25 mg PO Q8H PRN PRN Reason: Vertigo Melatonin (Melatonin 3 Mg Tablet) 6 mg PO BEDTIME PRN PRN Reason: Insomnia Morphine Sulfate (Morphine Sulfate 4 Mg/Ml Cartridge) 2 mg IVPUSH Q4H PRN; Protocol PRN Reason: Pain, Severe (Pain Scale 7-10) Last Admin: 10/02/25 07:54 Dose: 2 mg Ondansetron HCl (Ondansetron Hcl 4 Mg/2 Ml Vial) 4 mg IVPUSH Q8H PRN PRN Reason: Nausea and Vomiting Sodium Chloride (0.9 % Sodium Chloride Flush 3 Ml Syringe) 3 ml IVFLUSH QSHIFT [facility] Last Admin: 10/02/25 15:51 Dose: Not Given Home Medications ?Medication ?Instructions ?Recorded ?Confirmed ?Last Taken ?Type dexamethasone 4 mg tablet See Rx Instructions .Route .COMPLEX 08/27/25 09/23/25 Unknown History ipratropium bromide 42 mcg (0.06 2 spray intranasal TID PRN 08/27/25 09/23/25 Unknown History %) nasal spray allergies furosemide 20 mg tablet (Lasix) 20 mg PO DAILY Weight gain 09/23/25 09/23/25 09/22/25 History Physical Exam Vital Signs: Vital Signs: Last Vital Signs Temp 98.3 F 10/02/25 07:34 Pulse 72 10/02/25 07:34 Resp 18 10/02/25 07:34 BP 127/58 L 10/02/25 07:34 Pulse Ox 93 10/02/25 07:34 O2 Del Method Room Air 10/02/25 07:34 O2 Flow Rate 2 09/30/25 03:04 BMI result Body Mass Index 25.8 Const: General: cooperative, comfortable, alert, awake, in distress mild and other (Due to pain) and anxious Nutritional Appearance: average body habitus Orientation/consciousness: patient oriented x3 HEENT: Head: Yes normocephalic and Yes atraumatic Neck: Neck: Yes trachea midline, Yes supple and Yes no JVD Chest: Chest palpation & inspection: tenderness xiphoid process Resp: Effort & Inspection: normal respiratory effort Auscultation: breath sounds absent bilateral (Basis) and diminished lung sounds Cardio: Jugular venous distension: no JVD Rate: tachycardic Rhythm: regular rhythm Heart sounds: S1 normal heart sound present, S2 normal heart sound present, no click, no gallops and Murmur heart sound present systolic GI: Auscultation: normal bowel sounds Skin: General skin exam: no rashes or lesions noted Neuro: General: patient oriented x3 and no focal motor deficits Extrem: General: Yes no clubbing, cyanosis or edema Objective Labs and Meds 10/02/25 05:32 10/02/25 05:32 Lab results: Laboratory Results - last 24 hr 10/02/25 10/02/25 10/02/25 05:32 09:01 11:06 WBC 10.6 RBC 2.86 L Hgb 9.0 L Hct 26.8 L MCV 93.7 MCH 31.5 MCHC 33.6 RDW 19.2 H Plt Count 249 D MPV 10.0 Absolute Nucleated RBC 0.000 Nucleated RBC % (auto) 0.0 Sodium 137 Potassium 3.7 Chloride 100 Carbon Dioxide 30 H Anion Gap 11 L BUN 15 Creatinine 0.74 Estim Creat Clear Calc 107.9 Estimated GFR > 60 Random Glucose 81 Calcium 7.9 L Magnesium 1.6 Troponin I High Sens 5.3 4.6 Imaging Radiologist's impression: Impressions Chest X-Ray 10/02/25 08:34 IMPRESSION: Right lung consolidation, increased from previous. Left basilar hazy opacities.. Possible small bilateral pleural effusions. Recommend follow-up to resolution.. Electronically signed by: Loyd Louise MD 10/02/2025 08:48 AM EST RP Chest CTA 10/02/25 14:26 IMPRESSION: Acute pulmonary artery emboli, subsegmental branches to the left lower lung lobe. Positive exam. No right ventricular strain sign. Concerning malignancy, right upper lung lobe. Bilateral pleural effusions, moderate to large volume. Pericardial effusion, moderate volume. Emphysema. Coronary artery disease and atherosclerosis disease.. Fleischner guidelines were followed. Electronically signed by: Trent Mota MD 10/02/2025 03:23 PM EST RP Assessment and Plan (1) Chest pain: Status: Acute Patient with severe epigastric subxiphoid chest pain which is reproducible also worse with deep breathing. Does not appear to be related to myocardial ischemia especially with normal troponins. Potential etiology also includes pericarditis but also could be musculoskeletal chest pain. Given in his pulmonary malignancy pleural effusion/pleuritis can not be ruled out. Patient subsequently had echocardiogram showed pericardial effusion. This could also cause him to have chest pain. Plus potential etiology of pericardial effusion includes malignancy and/or pericardial inflammation. Will need a pericardial tap to further assess for the same. Treatment would be based on the same. Patient also noted to have pulmonary embolism. Given his pericardial effusion I would avoid anticoagulation therapy and consider IVC filter. Overall prognosis is guarded. (2) Cardiac arrhythmia: Status: Acute Cardiac arrhythmias or not atrial fibrillation. These appear to be related to PACs with PVCs with tachycardia probably related to pulmonary embolism as well as pericardial effusion. Would avoid treating this arrhythmias. Will continue to follow with you Procedures Date of Service Date of Service: 10/02/25
[2025-10-02 16:25] LABS: INTERNATIONAL NORM RATIO 1.2 (0.9-1.1); Prothrombin Time 14.4 SEC (11.2-13.5)
[2025-10-02 16:28] LABS: PTT Heparin Drip 34.4 SEC (53-77.9)
--- NOTE | 2025-10-02 16:44 | P.EN_ITS ---
Event Note Date of Service: 10/02/25 Event Note: CTA of chest show: Acute pulmonary artery emboli, subsegmental branches to the left lower lung lobe. Positive exam. No right ventricular strain sign. Concerning malignancy, right upper lung lobe. Bilateral pleural effusions, moderate to large volume. Pericardial effusion, moderate volume. Emphysema. In light of this new finding, echo crowe been done and confirm pericardial effusion. There was aconsideration of starting heparin, however there is great concern the perificardial effusion could hemorrhagic from CA and given history underlying anemia requiring multiple transfusion on this admission, we are holding heparin, will obtain pericardiocentesis tomorrow, consult vascular surgery for possible filter and thoracentesis at later time. Patient went into SVT with HR topping 205 and converted to sinus tach with adenosine 6 mg x 1. Goals of care conversation took place with his sister Rosalie (HCP) present and he has elected to be DNR and DNI. Will transfer to [facility]..Patient is in tough place and prognosis is poor, Time Spent With Patient Time: Total time managing care of this patient today ____ minutes.
[2025-10-02 16:53] VITALS: BMI 26.3
[2025-10-02] MEDS: Adenosine 6 MG/2 ML VIAL IVPUSH (16:58)
--- NOTE | 2025-10-02 16:59 | ECG_ITS ---
Test Reason : CK HEART RATE Blood Pressure : */* mmHG Vent. Rate : 122 BPM Atrial Rate : 122 BPM P-R Int : 118 ms QRS Dur : 72 ms QT Int : 320 ms P-R-T Axes : 74 52 52 degrees QTcB Int : 456 ms Sinus tachycardia with frequent Premature ventricular complexes Nonspecific T wave abnormality Abnormal ECG When compared to the previous EKG of No significant changes seen Referred By: Natanael Horowitz Electronically Signed By: NICOLAS CAMPOS MD
[2025-10-02 17:10] VITALS: BP 136/71; PULSE 100; RESP 18; O2SAT 94
[2025-10-02] MEDS: Lactated Ringers 1,000 ML 100 ML IVCONT (18:34)
[2025-10-02 19:06] VITALS: BP 116/68; PULSE 101; RESP 18; TEMP 36.8; O2SAT 92
[2025-10-02 20:31] VITALS: BP 116/68; PULSE 102
[2025-10-03] VITALS (17 sets, daily range): BP systolic 93–127; BP diastolic 52–74; PULSE 66–89; RESP 16–30; TEMP 36.1–36.8; O2SAT 92–99; BMI 25.8
[2025-10-03] MEDS: 0.9 % Sodium Chloride Flush 3 ML SYRINGE IVFLUSH ×3 (01:13→20:04)
[2025-10-03] MEDS: Lactated Ringers 1,000 ML 100 ML IVCONT (03:42)
[2025-10-03 07:18] LABS: INTERNATIONAL NORM RATIO 1.2 (0.9-1.1); Prothrombin Time 14.6 SEC (11.2-13.5)
[2025-10-03] MEDS: Fluticasone/Vilanterol 200/25 BLST.W.DEV 1 PUFF INHALE (07:28)
--- NOTE | 2025-10-03 11:46 | PC.NURSE ---
Thoracentesis on right side completed with 1,050 ML clear, yellow fluid lout; pt tolerated well; SAO2 returned to 95% 2 ltr ND when in semi-Delong's position from supine/lateral; vss; xray ordered stat to determine if it's feasible to proceed with L sided thora
--- NOTE | 2025-10-03 11:53 | PC.NURSE ---
Portable CXR WNL per Dr Granado; pt reports feeling fine and is agreeable to having the left-sided thoracentesis; vss
--- NOTE | 2025-10-03 12:20 | HO.PM.IMPN ---
Subjective Subjective Date of Service: 10/03/25 Interval History: No more chest pain overnight, and no arrythmia and no hypoxia US of legs are negative for clot, hemodynamically stable Review of Systems Review of Systems: Yes all other systems are reviewed and are negative Physical Exam Exam: Exam: General: AxOx3, on acute respiratory distress with supplemental oxygen, frail CVS; iregular, S1 S2 normal Lungs: Coarse bilateral breath sounds, rales in bases, improved Abd: Soft non tender, non distended Ext: No edema and no calf tenderness MSK: moving all 4 limbs Skin: No cyanosis or edema Psych: Cooperative with exam Neurology: no focal deficit Vital Signs: Vital Signs: Last Vital Signs Temp 96.9 F 10/03/25 07:12 Pulse 85 10/03/25 12:13 Resp 24 H 10/03/25 12:13 BP 97/63 10/03/25 12:13 Pulse Ox 99 10/03/25 12:13 O2 Del Method Nasal Cannula 10/03/25 12:13 O2 Flow Rate 10 10/03/25 12:13 Oxygen Flow Rate 4 10/02/25 17:10 BMI result Body Mass Index 26.3 Const: Other: .ex Objective Data Active Medications Acetaminophen (Acetaminophen 325 Mg Tablet) 650 mg PO Q6H PRN PRN Reason: Pain, Mild 1-3,fever,headache Last Admin: 09/28/25 07:53 Dose: 650 mg Documented By: WILLIE Amlodipine Besylate (Amlodipine Besylate 10 Mg Tablet) 10 mg PO DAILY [facility]; Protocol Last Admin: 10/03/25 09:08 Dose: 10 mg Documented By: ELVA Azithromycin (Azithromycin 500 Mg Tablet) 500 mg PO Q24H [facility] Stop: 10/04/25 07:44 Last Admin: 10/03/25 09:09 Dose: 500 mg Documented By: ELVA Calcium Carbonate (Calcium Carbonate 750 Mg Tab.Chew) 750 mg PO Q4H PRN PRN Reason: Heartburn Enoxaparin Sodium (Enoxaparin Sodium 40 Mg/0.4 Ml Syringe) 40 mg SUBCUT Q24H [facility] Last Admin: 10/02/25 20:25 Dose: 40 mg Documented By: CINDY Fluticasone/Vilanterol (Fluticasone/Vilanterol 200/25 Blst.W.Dev) 1 puff INHALE RDAILY [facility] Last Admin: 10/03/25 07:28 Dose: 1 puff Documented By: BRIONNA Folic Acid (Folic Acid 1 Mg Tablet) 1 mg PO DAILY [facility] Last Admin: 10/03/25 09:09 Dose: 1 mg Documented By: ELVA Furosemide (Furosemide 20 Mg Tablet) 20 mg PO DAILY [facility]; Protocol Last Admin: 10/03/25 09:07 Dose: 20 mg Documented By: ELVA Ceftriaxone Sodium 1 gm/ (Sodium Chloride) 50 mls @ 100 mls/hr IV Q24H [facility] Stop: 10/06/25 07:44 Last Infusion: 10/03/25 09:47 Dose: Infused Documented By: ELVA Lactated Ringer's (Lr) 1,000 mls @ 100 mls/hr IVCONT .Q10H [facility] Last Admin: 10/03/25 03:42 Dose: 100 mls/hr Documented By: CINDY Ipratropium Townsend (Ipratropium Townsend Osorio 0.06 % 15 Ml Sayre) 2 spray NOSTRIL-B TID PRN PRN Reason: allergies Magnesium Hydroxide (Milk Of Magnesia 30 Ml Oral.Susp) 30 ml PO DAILY PRN PRN Reason: Constipation Meclizine HCl (Meclizine Hcl 25 Mg Tablet) 25 mg PO Q8H PRN PRN Reason: Vertigo Melatonin (Melatonin 3 Mg Tablet) 6 mg PO BEDTIME PRN PRN Reason: Insomnia Metoprolol Tartrate (Metoprolol Tartrate 25 Mg Tablet) 25 mg PO TID [facility]; Protocol Last Admin: 10/03/25 09:09 Dose: 25 mg Documented By: ELVA Morphine Sulfate (Morphine Sulfate 4 Mg/Ml Cartridge) 2 mg IVPUSH Q4H PRN; Protocol PRN Reason: Pain, Severe (Pain Scale 7-10) Last Admin: 10/02/25 07:54 Dose: 2 mg Documented By: KORINA Ondansetron HCl (Ondansetron Hcl 4 Mg/2 Ml Vial) 4 mg IVPUSH Q8H PRN PRN Reason: Nausea and Vomiting Sodium Chloride (0.9 % Sodium Chloride Flush 3 Ml Syringe) 3 ml IVFLUSH QSHIFT [facility] Last Admin: 10/03/25 09:10 Dose: 3 ml Documented By: ELVA Labs 10/04/25 03:55 10/04/25 03:55 Labs: Laboratory Results - last 24 hr 10/02/25 10/03/25 16:10 07:04 Hold Purple Top SEE NOTE PT 14.4 H 14.6 H INR 1.2 H 1.2 H aPTT Heparin Protocol 34.4 L Assessment and Plan (1) 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: Status: Acute (2) COPD (chronic obstructive pulmonary disease): Status: Acute (3) Acute hypoxic respiratory failure: Status: Acute (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 Required 4 units of packed red blood cells on 09/23, 2 units on 09/24. Patient received IV Lasix on 09/26, with chest x ray showing pulmonary edema. Patient persisted with shortness of breath, repeat xray on 09/28 showing Pneumonia. patient initiate on IV antiobiocs, patient previously refused in goint to STR, on 10/01 after trying to use the bathroom due to weakness, accepted in going to rehab Acute hypoxic respiratory failure, likely multifactorial in origin--PNA, anemia hypoxia resolved. PNA, has completed Abx with Rocephain x 7 d and Azithro x 5 dd, wa seen by pulm, CXR 10/04, increased consolodiaton and having chest pain, and tachy, CTA yesterday 10/02 bilateral pleural effusion, and pericardial effusion s/p thoracentesis today 1.05 Non-bloody effusion, sent for cytology and cell count SVTs, PACs --started on metoprolol with good effect PE seen on CTA on 10/02, no hypoxia Will start IV heparin without bolus today and closely monitor H/H, given recent anemia needing multiple transfusion Pericardial effusion on CT , deemed small and not safe for pericardiocentesis relatively new compare to recent CT, will repeat Echo in near future cardiology advises Prednisone for possible pericarditis Anemia, acute on chronic likely from malignancy, s/p 6 units H/H has been stable Mild HFpEF Continue home dose of lasix Monitor for signs of fluid overload stop ivf--being given for pericardial effusion Tachycardia overnight, ECG PAC not AFIB Monitor HTN, chronic continue amlodipine, Lasix, monitor adjust medications accordingly COPD, no exacerbation at this time continue inhalers, keep sat 88 to 92 [id number] lung carcinoma with metastasis currently on chemotherapy 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 -imaging reviewed -[place] [facility] [place] -monitor for any signs of worsening shortness of breath, hemoptysis Ambulatory dysfunction Generalized weakness -PT/OT consulted DVT Ppx Lovenox Code Status: DNR/DNI, discussed with patient and sister (HCP) 10/02 Disposition: Total time managing care of this patient today: 55 minutes. Quality Stroke Does the patient have a stroke diagnosis?: No VTE Prior VTE?: No VTE Risk Level:: Medical - moderate - high VTE Device Contraindication: Treatment Not Indicated VTE Drug Contraindication: N/A - Med Ordered
[2025-10-03 12:39] LABS: MN% 65.4 %; PMN% 34.6 %; WBC Pleural Fluid 0.344 X10*3/uL
--- NOTE | 2025-10-03 12:48 | PC.NURSE ---
Pt tolerated L-sided thoracentesis well; 650ml clear, yellow fluid out; pt reports moderate lower L back pain; MD made aware; pt speaking full sentences; denies SOB; repeat CXR WNL; pt 95% 2 LTR NC; report gv to JULIO Dowling
[2025-10-03] MEDS: Lidocaine HCl 1 % MPF 5 ML VIAL SUBCUT (13:06)
[2025-10-03 13:25] LABS: INTERNATIONAL NORM RATIO 1.2 (0.9-1.1); Prothrombin Time 14.2 SEC (11.2-13.5)
[2025-10-03] MEDS: Heparin Sodium,Porcine/1/2NS 25,000 UNIT/250 ML IV.SOLN 12.4 UNIT IVCONT (13:27)
[2025-10-03 13:28] LABS: PTT Heparin Drip 34.2 SEC (53-77.9)
--- NOTE | 2025-10-03 13:55 | P.CONGS_ITS ---
History of Present Illness Consult details Consult date: 10/03/25 Reason for consult: other (PE) Narrative: Very pleasant 62-year-old gentleman diagnosed with non-small cell lung cancer with Mets that was diagnosed in July of 2024. He has been receiving chemotherapy. Recently had severe anemia requiring blood transfusion and was admitted on 09/23 with with acute hypoxia and respiratory failure. After blood transfusions he was appeared to be doing relatively well. He eventually underwent CT angiogram which demonstrated PE involving the subsegmental branches in the left lower lobe. Along this was along with pleural effusions. He has been receiving prophylactic Lovenox. He has been started on heparin without bolus. He is awaiting pericardial centesis. He now presents for evaluation for potential IVC filter placement. Review of Systems 2 Review of Systems: Yes all other systems are reviewed and are negative Constitutional: Constitutional: Reports no additional constitutional complaints ENT: Reports Normal hearing present Cardiovascular: Cardiovascular: Denies chest pain, Denies chest pain at rest, Denies chest pain with activity and Denies pedal edema Respiratory: Respiratory: Denies cough Gastrointestinal: Gastrointestinal: Denies abdominal pain Musculoskeletal: Musculoskeletal: Denies abnormal gait, Denies muscle cramps and Denies radiating pain into limb Integumentary/Breasts: Skin/Breast: Denies skin ulcer and Denies wounds Neurologic: Reports Normal hearing present and Denies abnormal gait Psychiatric: Psychiatric: Reports no additional psychiatric complaints PMFSH Past Medical History Medical History Swelling of right hand Anemia in chronic illness Lung cancer COPD (chronic obstructive pulmonary disease) Pancreatic mass Lymphadenopathy Lung mass Nicotine dependence, cigarettes, uncomplicated SVT (supraventricular tachycardia) Edema Pressure ulcer Alcohol use disorder Cognitive disorder Rhabdomyolysis Hypertension Family History Family History Father No problems noted. Mother Lung cancer Family/Other Lung cancer Throat cancer Surgical History Surgical History History of colonoscopy History of lumbar laminectomy Social History Social History Household Members: None Household Members Other:: pt lives alone Housing: Apartment Are you a primary critical care registered nurse to a significant other at home: No Do you presently have visiting nurse or other home services: Yes (VNA and PT) Alcohol intake: current Alcohol intake frequency: 0-2 drinks per day Alcohol type: beer Comment: camera not available Patient Tobacco Use Status: Current everyday Tobacco user Tobacco use type: Cigarette Cigarette Packs Per Day: 1 Years Smoked: (onset 16yo, 1-1.5ppd x 53yrs, 60+PYH) e-Cigarette/Vaping Use: Currently Using Second Hand Smoke Exposure: No Advance Directives Date on File: 12/14/22 service: No 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 identity: Male Cognitive needs: Yes (Cane) Hearing needs: No Vision needs: Yes (Glasses) Meds Allergies Allergy/AdvReac Type Severity Reaction Status Date / Time No Known Allergies Allergy Verified 09/23/25 09:19 Active Medications: Current Medications Acetaminophen (Acetaminophen 325 Mg Tablet) 650 mg PO Q6H PRN PRN Reason: Pain, Mild 1-3,fever,headache Last Admin: 09/28/25 07:53 Dose: 650 mg Amlodipine Besylate (Amlodipine Besylate 10 Mg Tablet) 10 mg PO DAILY [facility]; Protocol Last Admin: 10/03/25 09:08 Dose: 10 mg Azithromycin (Azithromycin 500 Mg Tablet) 500 mg PO Q24H [facility] Stop: 10/04/25 07:44 Last Admin: 10/03/25 09:09 Dose: 500 mg Calcium Carbonate (Calcium Carbonate 750 Mg Tab.Chew) 750 mg PO Q4H PRN PRN Reason: Heartburn Fluticasone/Vilanterol (Fluticasone/Vilanterol 200/25 Blst.W.Dev) 1 puff INHALE RDAILY [facility] Last Admin: 10/03/25 07:28 Dose: 1 puff Folic Acid (Folic Acid 1 Mg Tablet) 1 mg PO DAILY [facility] Last Admin: 10/03/25 09:09 Dose: 1 mg Furosemide (Furosemide 20 Mg Tablet) 20 mg PO DAILY [facility]; Protocol Last Admin: 10/03/25 09:07 Dose: 20 mg Heparin Sodium (Porcine) (Heparin Sodium,Porcine 5,000 Unit/Ml Vial) 3,500 unit 40 unit/kg (3500 unit) IVPUSH PROTOCOL BOLUS PRN; Protocol PRN Reason: 40 unit/kg - Heparin Protocol Heparin Sodium (Porcine) (Heparin Sodium,Porcine 5,000 Unit/Ml Vial) 7,100 unit 80 unit/kg (7100 unit) IVPUSH PROTOCOL BOLUS PRN; Protocol PRN Reason: 80 unit/kg - Heparin Protocol Ceftriaxone Sodium 1 gm/ (Sodium Chloride) 50 mls @ 100 mls/hr IV Q24H [facility] Stop: 10/06/25 07:44 Last Infusion: 10/03/25 09:47 Dose: Infused Heparin Sodium/Sodium Chloride (Heparin Sodium,Porcine/1/2ns) 25,000 unit in 250 mls @ 0 mls/hr IVCONT .Q0M [facility]; Protocol Last Admin: 10/03/25 13:27 Dose: 14 units/kg/hr, 12.4 mls/hr Ipratropium Peak (Ipratropium Peak Osorio 0.06 % 15 Ml Tiona) 2 spray NOSTRIL-B TID PRN PRN Reason: allergies Magnesium Hydroxide (Milk Of Magnesia 30 Ml Oral.Susp) 30 ml PO DAILY PRN PRN Reason: Constipation Meclizine HCl (Meclizine Hcl 25 Mg Tablet) 25 mg PO Q8H PRN PRN Reason: Vertigo Melatonin (Melatonin 3 Mg Tablet) 6 mg PO BEDTIME PRN PRN Reason: Insomnia Metoprolol Tartrate (Metoprolol Tartrate 25 Mg Tablet) 25 mg PO TID [facility]; Protocol Last Admin: 10/03/25 09:09 Dose: 25 mg Morphine Sulfate (Morphine Sulfate 4 Mg/Ml Cartridge) 2 mg IVPUSH Q4H PRN; Protocol PRN Reason: Pain, Severe (Pain Scale 7-10) Last Admin: 10/03/25 13:02 Dose: 2 mg Ondansetron HCl (Ondansetron Hcl 4 Mg/2 Ml Vial) 4 mg IVPUSH Q8H PRN PRN Reason: Nausea and Vomiting Prednisone (Prednisone 20 Mg Tablet) 40 mg PO DAILY [facility] Last Admin: 10/03/25 13:03 Dose: 40 mg Sodium Chloride (0.9 % Sodium Chloride Flush 3 Ml Syringe) [facility] Last Admin: 10/03/25 09:10 Dose: 3 ml Home Medications ?Medication ?Instructions ?Recorded ?Confirmed ?Last Taken ?Type dexamethasone 4 mg tablet See Rx Instructions .Route . COMPLEX 08/27/25 09/23/25 Unknown History ipratropium bromide 42 mcg (0.06 2 spray intranasal TI D PRN 08/27/25 09/23/25 Unknown History %) nasal spray allergies furosemide 20 mg tablet (Lasix) 20 mg PO DAILY Weight gain 09/23/25 09/23/25 09/22/25 History Physical Exam 2 Vital Signs: Vital Signs: Last Vital Signs Temp 96.9 F 10/03/25 07:12 Pulse 85 10/03/25 12:13 Resp 24 H 10/03/25 12:13 BP 97/63 10/03/25 12:13 Pulse Ox 99 10/03/25 12:13 O2 Del Method Nasal Cannula 10/03/25 12:13 O2 Flow Rate 10 10/03/25 12:13 Oxygen Flow Rate 4 10/02/25 17:10 BMI result Body Mass Index 25.8 Const: General: cooperative, healthy appearing and comfortable O rientation/consciousness: oriented to person, oriented to place and oriented to time HEENT: Head: Yes normal to inspection Neck: Neck: Yes normal visual inspection Carotids: no bruits Chest: Chest palpation & inspection: normal inspection of the chest Resp: Effort & Inspection: normal respiratory effort and able to speak in complete sentences Auscultation: clear to auscultation bilaterally, no crackles, no rales, no rhonchi and no wheezes Cardio: Rate: regular rate Rhythm: regular rhythm Heart sounds: S1 normal heart sound present and S2 normal heart sound present Bruits: no carotid bruits Peripheral pulses: Peripheral pulses 2+ throughout GI: Inspection: Yes normal to inspection Skin: Wounds: no wounds Hair: normal Neuro: General: oriented to person, oriented to place and oriented to time Cranial nerves: Yes CN's II-XII intact bilaterally and Yes Normal hearing present Cognition (Neuro): normal cognition Motor exam (neuro): 5/5 motor strength present throughout Extrem: Other: venous exam: +2 edema General: No clubbing, No cyanosis and Yes edema Psych: Appearance: grossly normal Mental Status: mental status grossly normal Speech and movement: Normal speech and movement present Results Labs 10/02/25 05:32 10/02/25 05:32 Labs: Abnormal lab results 10/02/25 10/03/25 10/03/25 Range/Units 16:10 07:04 12:43 PT 14.4 H 14.6 H 14.2 H (11.2-13.5) SEC INR 1.2 H 1.2 H 1.2 H (0.9-1.1) aPTT Heparin Protocol 34.4 L 34.2 L (53-77.9) SEC Urine 09/23/25 Range/Units 13:46 Urine Color Yellow Urine Appearance Clear Urine pH 7.0 (5.0-9.0) Ur Specific Ewing <= 1.005 (1.005-1.025) Urine Protein Negative (Neg-Trace) mg/dL Urine Glucose (UA) Negative (Negative) mg/dL All other labs normal. Assessment and Plan (1) Pulmonary embolism: Qualifiers: Pulmonary embolism type: unspecified Chronicity: acute Acute cor pulmonale presence: unspecified Qualified Code(s): I26.99 - Other pulmonary embolism without acute cor pulmonale Status: Acute Plan In short patient has pulmonary embolism. I did have an opportunity to review CAT scan which demonstrated subsegmental branches left lower lung lobe. No evidence of heart strain. Also lower extremity ultrasound was negative for DVT. At the current time would recommend trial of anticoagulation. If patient can tolerate this would avoid IVC filter placement. Unclear what the source of this was as the lower extremities are negative for DVT. If he is unable to tolerate anticoagulation would be available for IVC filter placement. Case was discussed with the hospitalist team. We will peripherally follow with you. Thank you for allowing us to assist his care. Procedures Date of Service Date of Service: 10/03/25
--- NOTE | 2025-10-03 13:56 | PM.PNCARD ---
Subjective Subjective Date of Service: 10/03/25 Principal diagnosis: Pericardial effusion, pleural effusion, pulmonary embolism. Interval history: Patient says his chest pain in his a lot better since yesterday. Yesterday CT scan suggestive of moderate pericardial effusion predominantly near the right atrium right ventricle without tamponade physiology. He also has bilateral pleural effusion. This also subsegmental PE noted that raised the question of anticoagulation. CT scan was reviewed by interventional radiology and felt that pericardial tap was risky given the size and location of the pericardial fluid. Also it was felt that the pulmonary embolism small. Patient overall not complaining in his shortness of breath. There has been no hemodynamic instability. His hematocrit has remained stable. Patient last evening had developed rapid SVT which responded well to adenosine therapy Review of Systems Constitutional: Reports weakness Eyes: Reports no additional eye complaints Reports system reviewed and no additional complaints, except as documented Cardiovascular: Denies chest pain, Denies lightheadedness, Denies Loss of Consciousness, Denies palpitations and Reports dyspnea Respiratory: Reports dyspnea Reports weakness Endocrine: Denies palpitations Physical Exam Vital Signs: Last Vital Signs Temp 96.9 F 10/03/25 07:12 Pulse 85 10/03/25 12:13 Resp 24 H 10/03/25 12:13 BP 97/63 10/03/25 12:13 Pulse Ox 99 10/03/25 12:13 O2 Del Method Nasal Cannula 10/03/25 12:13 O2 Flow Rate 10 10/03/25 12:13 Oxygen Flow Rate 4 10/02/25 17:10 BMI result Body Mass Index 25.8 Const General: cooperative, comfortable, alert, awake and anxious Nutritional Appearance: average body habitus Orientation/consciousness: patient oriented x3 HEENT Head: Yes normocephalic and Yes atraumatic Neck Neck: Yes trachea midline, Yes supple and Yes no JVD Chest Chest palpation & inspection: tenderness xiphoid process Resp Effort & Inspection: normal respiratory effort Auscultation: breath sounds absent bilateral (Basis) and diminished lung sounds Cardio Jugular venous distension: no JVD Rate: tachycardic Rhythm: regular rhythm Heart sounds: S1 normal heart sound present, S2 normal heart sound present, no click, no gallops and Murmur heart sound present systolic GI Auscultation: normal bowel sounds Skin General skin exam: no rashes or lesions noted Neuro General: patient oriented x3 and no focal motor deficits Extrem General: Yes no clubbing, cyanosis or edema Objective Labs and Meds 10/02/25 05:32 10/02/25 05:32 Lab results: Laboratory Results - last 24 hr 10/02/25 10/03/25 10/03/25 16:10 07:04 11:40 Hold Purple Top SEE NOTE PT 14.4 H 14.6 H INR 1.2 H 1.2 H aPTT Heparin Protocol 34.4 L Pleural WBC 0.344 Pleural RBC < 0.002 10/03/25 12:43 Hold Purple Top PT 14.2 H INR 1.2 H aPTT Heparin Protocol 34.2 L Pleural WBC Pleural RBC Imaging Radiologist's impression: Impressions Chest CTA 10/02/25 14:26 IMPRESSION: Acute pulmonary artery emboli, subsegmental branches to the left lower lung lobe. Positive exam. No right ventricular strain sign. Concerning malignancy, right upper lung lobe. Bilateral pleural effusions, moderate to large volume. Pericardial effusion, moderate volume. Emphysema. Coronary artery disease and atherosclerosis disease.. Fleischner guidelines were followed. Electronically signed by: Trent Mota MD 10/02/2025 03:23 PM EST RP Chest X-Ray 10/03/25 11:46 IMPRESSION: 1. Small left pleural effusion. No pneumothorax. 2. 2.3 cm right upper lobe mass without change. 3. Opacification of the left lung base may represent atelectasis or pneumonia. Electronically signed by: Wander Toscano MD 10/03/2025 12:02 PM EST RP Chest X-Ray 10/03/25 12:18 IMPRESSION: 1. Small left pleural effusion. No pneumothorax. 2. 2.3 cm right upper lobe mass as seen previously. 3. Airspace opacity at the left lung base may represent atelectasis or pneumonia. Electronically signed by: Wander Toscano MD 10/03/2025 12:35 PM EST RP Progress Note: A&P Assessment and plan (1) Cardiac arrhythmia: Status: Acute Assessment and Plan: Patient with cardiac arrhythmias with PACs and PVCs and SVT. Clinically currently has remained suppressed. Low-dose metoprolol. Given his low blood pressure can reduce metoprolol to 12.5 mg q.6 hours. Possibly related to multifactorial issues including pericardial fluid as a irritant as well as overall medical situation with bilateral pleural effusion. (2) Pericardial effusion: Status: Acute Assessment and Plan: Pericardial effusion of unclear etiology. Not sure if this is possibly related to malignancy and/or reactionary or inflammatory. Reviewing the CT scan does not appear quite hemorrhagic. However a pericardial tap will help although those felt that this would be very risky given the nature and size and location of the fluid. At this point in time I would treat this has a inflammatory pericardial effusion clinically given the chest pain and subacute nature of pericardial effusion with steroids. Patient being started on IV heparin for pulmonary embolism. Will monitor closely for worsening of his pericardial effusion. Clinical observation for hemodynamic stability will be pursued. Patient plan to undergo pleural tap to help with his respiratory status but also to diagnose the nature of pleural fluid. (3) Acute hypoxic respiratory failure: Status: Acute Assessment and Plan: Acute hypoxemic respiratory failure appears to be multifactorial with bilateral pleural effusion and possibly associated atelectasis. Undergoing therapeutic thoracocentesis. Continue monitor clinically. Unlikely to be related to pulmonary embolism which is subsegmental. However this will need to be treated given that he has underlying malignancy which makes him prone to develop recurrent venous thromboembolic disease. Hematology input should be considered. Will follow with you Time Spent With Patient Time: Total time managing care of this patient today ____ minutes. Progress Note: Quality Stroke Does the patient have a stroke diagnosis?: No Procedures Date of Service Date of Service: 10/03/25
--- NOTE | 2025-10-03 14:13 | MHC.CLN ---
PT WITH INCREASED NUTRITION RISK R/T PRESSURE INJURY CURRENTLY NPO IF DIET TO ADVANCE RECOMMEND REGULAR DIET WITH ENSURE TID SUPPLEMENT TO PROVIDE 1050KCALS, 60G PROTEIN FOLLOWING FOR DIET ADVANCEMENT SEE FULL ASSESSMENT
[2025-10-03 14:16] LABS: BF Shift QC OK YES; Basophils Pleural Fluid 1 %; Eosinophils Pleural Fluid 1 %; Lymphocytes Pleural Fluid 7 %; Monocytes Pleural Fluid 4 %; Neutrophils Pleural Fluid 25 %; Other Cells Plerual Fl 62 %
[2025-10-03 19:59] LABS: PTT Heparin Drip 51.1 SEC (53-77.9)
[2025-10-03] MEDS: Milk of Magnesia 30 ML ORAL.SUSP PO (20:07)
[2025-10-03 20:57] LABS: Glucose, Whole Blood 167 mg/dL (60-115)
[2025-10-04] VITALS (7 sets, daily range): BP systolic 95–112; BP diastolic 57–65; PULSE 77–87; RESP 17–20; TEMP 36.1–36.9; O2SAT 96–98
[2025-10-04 03:03] LABS: PTT Heparin Drip 168.9 SEC (53-77.9)
[2025-10-04 04:14] LABS: PTT Heparin Drip 82.8 SEC (53-77.9)
[2025-10-04 04:28] LABS: Hematocrit 27.3 % (42.0-52.0); Hemoglobin 9.0 g/dl (14.0-18.0); Mean Corpuscular HGB Conc 33.0 g/dl (31.0-36.0); Mean Corpuscular Hemoglobin 31.4 pg (27.0-33.0); Mean Corpuscular Volume 95.1 fL (80.0-98.0); NRBC Abs Auto 0.000 X10*3/uL (0.0-0.012); NRBC Pct Auto 0.0 /100WBC (0.0-0.2); Platelet Count 317 X10*3/uL (160-400); Red Blood Count 2.87 X10*6/uL (4.60-5.80); White Blood Count 9.3 X10*3/uL (4.8-10.8)
[2025-10-04 04:34] LABS: Anion Gap 12 (12-20); Blood Urea Nitrogen 20 mg/dL (9-16); Calcium 8.0 mg/dL (8.4-10.2); Carbon Dioxide 31 mmol/L (22-29); Chloride 97 mmol/L (96-108); Creatinine Clr Calc Pharmacy 89.7; Estimated Glomerular Filt Rate > 60; Potassium 4.4 mmol/L (3.3-5.1); Sodium 136 mmol/L (135-145)
[2025-10-04 04:48] LABS: INTERNATIONAL NORM RATIO 1.2 (0.9-1.1); Prothrombin Time 14.3 SEC (11.2-13.5)
[2025-10-04] MEDS: Fluticasone/Vilanterol 200/25 BLST.W.DEV 1 PUFF INHALE (07:42)
[2025-10-04 08:12] LABS: Albumin Pleural Fluid 1.3
[2025-10-04] MEDS: 0.9 % Sodium Chloride Flush 3 ML SYRINGE IVFLUSH (08:58)
--- NOTE | 2025-10-04 10:00 | P.PNHO-ONC_ITS ---
Medical Summary - Medical Summary Date of Service: 10/04/25 Chief complaint: Shortness of breath Primary Care Provider: NELY Rich Visor Installer Utilized?: No - French Speaking Interval History Interval history: Hari Page is a 70 year old male with advanced poorly differentiated lung cancer who has been receiving chemotherapy, admitted on 09/23/2025 for progressive dyspnea. Evaluation revealed hemoglobin of 5.5 gram/dL as well as elevated BNP. He received several units blood transfusion. Chest x-ray demonstrated known pulmonary mass in the right upper lobe and patchy airspace disease in the right lower lung suspicious for pneumonia. Patient was being treated for acute hypoxic respiratory failure secondary to pneumonia and severe anemia. He was started on Rocephin and azithromycin. Patient developed chest pain since last night, ECG showed new atrial fibrillation with RVR. CT angiogram performed 10/02/2025 showed acute pulmonary emboli, subsegmental branches in the left lower lobe. Malignancy in the right upper lobe. Bilateral pleural effusions, [id number] volume. Pericardial effusion, moderate volume and emphysema. Echocardiogram revealed moderate circumferential pericardial effusion more prominent near the right-sided chambers. Patient had thoracentesis yesterday and feels a lot better today. He has been started on prednisone. He is on unfractionated heparin for pulmonary embolism. Review of Systems - Neurologic Reports no additional neurologic complaints, Reports hearing normal, Denies abnormal gait, Reports weakness PMFSH Medical History: Medical History (Last Reviewed 10/02/25 @ 16:58 by Carlton Reese MD) Alcohol use disorder Anemia in chronic illness Cognitive disorder COPD (chronic obstructive pulmonary disease) Edema Hypertension Lung cancer Lung mass Lymphadenopathy Nicotine dependence, cigarettes, uncomplicated Pancreatic mass Pressure ulcer Rhabdomyolysis SVT (supraventricular tachycardia) Swelling of right hand Family History: Family History (Last Reviewed 10/02/25 @ 16:58 by Carlton Reese MD) Father No problems noted. Mother Lung cancer Family/Other Lung cancer Throat cancer Surgical History: Surgical History (Last Reviewed 10/02/25 @ 16:58 by Carlton Reese MD) History of colonoscopy History of lumbar laminectomy Social History: Social History (Last Reviewed 10/02/25 @ 16:58 by Carlton Reese MD) Living Situation History: Household Members: None Household Members Other:: pt lives alone Housing: Apartment Are you a primary acute care registered nurse to a significant other at home: No Do you presently have visiting nurse or other home services: Yes Do you presently have visiting nurse or other home services comment: VNA and PT Tobacco History: Patient Tobacco Use Status: Current everyday Tobacco Tobacco use type: Cigarette Cigarette Packs Per Day: 1 Years Smoked: (onset 16yo, 1-1.5ppd x 53yrs, 60+PYH) e-Cigarette/Vaping Use: Currently Using Second Hand Smoke Exposure: No Advance Directives: Advance Directives Date on File: 12/14/22 Occupation Assessmet: service: No 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 Sex/Gender Assessment: Gender identity: Male Home Medications and Allergies Current Medications: Current Medications Acetaminophen (Acetaminophen 325 Mg Tablet) 650 mg PO Q6H PRN PRN Reason: Pain, Mild 1-3,fever,headache Last Admin: 09/28/25 07:53 Dose: 650 mg Amlodipine Besylate (Amlodipine Besylate 10 Mg Tablet) 10 mg PO DAILY [facility]; Protocol Last Admin: 10/04/25 08:57 Dose: 10 mg Calcium Carbonate (Calcium Carbonate 750 Mg Tab.Chew) 750 mg PO Q4H PRN PRN Reason: Heartburn Fluticasone/Vilanterol (Fluticasone/Vilanterol 200/25 Blst.W.Dev) 1 puff INHALE RDAILY [facility] Last Admin: 10/04/25 07:42 Dose: 1 puff Folic Acid (Folic Acid 1 Mg Tablet) 1 mg PO DAILY [facility] Last Admin: 10/04/25 08:57 Dose: 1 mg Furosemide (Furosemide 20 Mg Tablet) 20 mg PO DAILY [facility]; Protocol Last Admin: 10/04/25 08:57 Dose: 20 mg Heparin Sodium (Porcine) (Heparin Sodium,Porcine 5,000 Unit/Ml Vial) 3,500 unit 40 unit/kg (3500 unit) IVPUSH PROTOCOL BOLUS PRN; Protocol PRN Reason: 40 unit/kg - Heparin Protocol Last Admin: 10/03/25 20:20 Dose: 3,500 unit Heparin Sodium (Porcine) (Heparin Sodium,Porcine 5,000 Unit/Ml Vial) 7,100 unit 80 unit/kg (7100 unit) IVPUSH PROTOCOL BOLUS PRN; Protocol PRN Reason: 80 unit/kg - Heparin Protocol Ceftriaxone Sodium 1 gm/ (Sodium Chloride) 50 mls @ 100 mls/hr IV Q24H [facility] Stop: 10/06/25 07:44 Last Infusion: 10/03/25 09:47 Dose: Infused Heparin Sodium/Sodium Chloride (Heparin Sodium,Porcine/1/2ns) 25,000 unit in 250 mls @ 0 mls/hr IVCONT .Q0M [facility]; Protocol Last Titration: 10/04/25 04:35 Dose: 12 units/kg/hr, 10.63 mls/hr Ipratropium Mcnary (Ipratropium Mcnary Osorio 0.06 % 15 Ml [place]) 2 spray NOSTRIL-B TID PRN PRN Reason: allergies Magnesium Hydroxide (Milk Of Magnesia 30 Ml Oral.Susp) 30 ml PO DAILY PRN PRN Reason: Constipation Last Admin: 10/03/25 20:07 Dose: 30 ml Meclizine HCl (Meclizine Hcl 25 Mg Tablet) 25 mg PO Q8H PRN PRN Reason: Vertigo Melatonin (Melatonin 3 Mg Tablet) 6 mg PO BEDTIME PRN PRN Reason: Insomnia Metoprolol Tartrate (Metoprolol Tartrate 25 Mg Tablet) 25 mg PO TID [facility]; Protocol Last Admin: 10/04/25 08:57 Dose: 25 mg Morphine Sulfate (Morphine Sulfate 4 Mg/Ml Cartridge) 2 mg IVPUSH Q4H PRN; Protocol PRN Reason: Pain, Severe (Pain Scale 7-10) Last Admin: 10/03/25 18:36 Dose: 2 mg Ondansetron HCl (Ondansetron Hcl 4 Mg/2 Ml Vial) 4 mg IVPUSH Q8H PRN PRN Reason: Nausea and Vomiting Prednisone (Prednisone 20 Mg Tablet) 40 mg PO DAILY [facility] Last Admin: 10/04/25 08:57 Dose: 40 mg Sodium Chloride (0.9 % Sodium Chloride Flush 3 Ml Syringe) 3 ml IVFLUSH QSHIFT [facility] Last Admin: 10/04/25 08:58 Dose: 3 ml Home Medications ?Medication ?Instructions ?Recorded ?Confirmed ?Type dexamethasone 4 mg tablet See Rx Instructions .Route .COMPLEX 08/27/25 09/23/25 History ipratropium bromide 42 mcg (0.06 2 spray intranasal TID PRN 08/27/2511/17 History %) nasal spray allergies furosemide 20 mg tablet (Lasix) 20 mg PO DAILY Weight gain 09/23/2511/17 History Allergies Allergy/AdvReac Type Severity Reaction Status Date / Time No Known Allergies Allergy Verified 09/23/25 09:19 Exam Vital signs: Vital Signs Temp 97.4 F 10/04/25 07:42 Pulse 87 10/04/25 07:44 Resp 17 10/04/25 07:44 BP 112/65 10/04/25 07:42 Pulse Ox 98 10/04/25 07:42 O2 Del Method Nasal Cannula 10/04/25 07:42 O2 Flow Rate 3 10/04/25 07:42 Intake & Output 10/03/25 10/04/25 10/04/25 18:59 06:59 18:59 Intake Total 988.333 / 1969.373 981.040 / 1969.373 Output Total 500 / 1040 540 / 1040 Balance 488.333 / 929.373 441.040 / 929.373 Urine Output (Average ml/kg/hr) 0.47 0.51 Intake: Intake, Oral Amount 800 / 800 Intake, IV Amount 988.333 / 1169.373 181.040 / 1169.373 cefTRIAXone sodium 1 gm In 0.9 50 / 50 % Sodium Chloride 50 ml @ 100 mls/hr IV Q24H [facility] Rx#: [id number] Heparin Sodium,Porcine/1/2NS 25 181.040 / 181.040 ,000 unit In 250 ml @ Per Protocol IVCONT .Q0M [facility] Rx#: [id number] Lactated Ringers 1,000 ml @ 100 938.333 / 938.333 mls/hr IVCONT .Q10H [facility] Rx#: [id number] Output: Output, Urine Amount 540 / 540 Output, Urine Amount (Catheter) 500 / 500 Male Purewick 500 / 500 Other: NPO Yes Number of Bowel Movements 0 Urine Urinal malewick Urine Color Concentrated Yellow Weight 88.6 kg Weight 88.6 kg BMI result Body Mass Index 25.8 - Constitutional Present: moderate distress - Routine HEENT Exam Head: Present: normal inspection - Routine Respiratory Exam Present: accessory muscle use, decreased breath sounds - Routine Cardiovascular Exam Cardiovascular: Present: S1, S2, tachycardia - Routine Skin Exam Present: intact Data - Labs CBC & Chem 7: 10/04/25 03:55 10/04/25 03:55 Labs: Laboratory Last Values WBC 9.3 X10*3/uL (4.8-10.8) 10/04/25 03:55 RBC 2.87 X10*6/uL (4.60-5.80) L 10/04/25 03:55 Hgb 9.0 g/dl (14.0-18.0) L 10/04/25 03:55 Hct 27.3 % (42.0-52.0) L 10/04/25 03:55 MCV 95.1 fL (80.0-98.0) 10/04/25 03:55 MCH 31.4 pg (27.0-33.0) 10/04/25 03:55 MCHC 33.0 g/dl (31.0-36.0) 10/04/25 03:55 RDW 19.4 % (11.0-16.0) H 10/04/25 03:55 Plt Count 317 X10*3/uL (160-400) D 10/04/25 03:55 MPV 10.0 fL (9.4-12.4) 10/04/25 03:55 Immature Gran % (Auto) 1.6 % (0.0-0.4) H 09/30/25 08:32 Neut % (Auto) 77.0 % (45-73) H 09/30/25 08:32 Lymph % (Auto) 13.2 % (20-40) L 09/30/25 08:32 [place] % (Auto) 7.5 % (2-11) 09/30/25 08:32 Eos % (Auto) 0.5 % (0-4) 09/30/25 08:32 Baso % (Auto) 0.2 % (0-2) 09/30/25 08:32 Lymph # (Auto) 1.8 X10*3/uL (1.2-4.9) 09/30/25 08:32 [place] # (Auto) 1.0 X10*3/uL (0.1-1.2) 09/30/25 08:32 Eos # (Auto) 0.1 X10*3/uL (0.0-0.4) 09/30/25 08:32 Baso # (Auto) 0.0 X10*3/uL (0.0-0.2) 09/30/25 08:32 Abs Immat Gran (auto) 0.21 X10*3/uL (0.00-0.03) H 09/30/25 08:32 Absolute Neuts (auto) 10.2 x10*3/uL (2.0-8.3) H 09/30/25 08:32 Absolute Nucleated RBC 0.000 X10*3/uL (0.0-0.012) 10/04/25 03:55 Nucleated RBC % (auto) 0.0 /100WBC (0.0-0.2) 10/04/25 03:55 Neutrophils % (Manual) 68 % (45-73) 09/23/25 10:48 Band Neutrophils % 2 % (3-5) L 09/23/25 10:48 Lymphocytes % (Manual) 20 % (20-40) 09/23/25 10:48 Monocytes % (Manual) 6 % (2-11) 09/23/25 10:48 Eosinophils % (Manual) 1 % (0-4) 09/23/25 10:48 Blast Cells % (Manual) 3 % 09/23/25 10:48 Abs Neuts (Manual) 4.6 X10*3/uL (2.0-8.3) 09/23/25 10:48 Lymphocytes # (Manual) 1.3 X10*3/uL (1.2-4.9) 09/23/25 10:48 Monocytes # (Manual) 0.4 X10*3/uL (0.1-1.2) 09/23/25 10:48 Eosinophils # (Manual) 0.1 X10*3/uL (0.0-0.4) 09/23/25 10:48 Blast Cells # 0.2 X10*3/uL 09/23/25 10:48 Platelet Estimate NORMAL (NORMAL) 09/23/25 10:48 Plt Morphology Comment NORMAL 09/23/25 10:48 RBC Morphology NORMAL 09/23/25 10:48 Hypochromasia 3+ (>30) /OIF 09/23/25 10:48 Tear Drop Cells 1+ (0-2) /OIF 09/23/25 10:48 Ovalocytes 1+ (5-14) /OIF 09/23/25 10:48 [place] Cells 1+ (0-2) /OIF 09/23/25 10:48 Smear Path Review SEE NOTE 09/23/25 10:48 Hold Purple Top SEE NOTE 10/02/25 16:10 PT 14.3 SEC (11.2-13.5) H 10/04/25 03:55 INR 1.2 (0.9-1.1) H 10/04/25 03:55 APTT 30.9 SEC (26.7-34.1) 09/23/25 10:48 aPTT Heparin Protocol 82.8 SEC (53-77.9) H D 10/04/25 03:55 VBG pH 7.51 (7.32-7.43) H 09/23/25 11:05 VBG pCO2 41 mmHg 09/23/25 11:05 VBG pO2 39 mmHg 09/23/25 11:05 VBG HCO3 33 mmol/L (22-26) H 09/23/25 11:05 VBG O2 Saturation TNP 09/23/25 11:05 VBG Base Excess 9.5 mmol/L 09/23/25 11:05 Sodium 136 mmol/L (135-145) 10/04/25 03:55 Potassium 4.4 mmol/L (3.3-5.1) 10/04/25 03:55 Chloride 97 mmol/L (96-108) 10/04/25 03:55 Carbon Dioxide 31 mmol/L (22-29) H 10/04/25 03:55 Anion Gap 12 (12-20) 10/04/25 03:55 BUN 20 mg/dL (9-16) H 10/04/25 03:55 Creatinine 0.89 mg/dL (0.5-1.4) 10/04/25 03:55 Estim Creat Clear Calc 89.7 10/04/25 03:55 Estimated GFR > 60 10/04/25 03:55 POC Glucose 167 mg/dL (60-115) H 10/03/25 20:45 Random Glucose 170 mg/dL (60-115) H 10/04/25 03:55 Lactic Acid 1.2 mmol/L (0.5-2.0) 09/23/25 10:48 Uric Acid 5.8 mg/dL (3.4-7.0) 09/28/25 16:16 Calcium 8.0 mg/dL (8.4-10.2) L 10/04/25 03:55 Magnesium 1.6 mg/dL (1.6-2.6) 10/02/25 05:32 Total Bilirubin 0.1 mg/dL (0.0-1.0) 09/28/25 16:16 AST 39 U/L (5-37) H 09/28/25 16:16 ALT 9 U/L (0-40) 09/28/25 16:16 Alkaline Phosphatase 145 U/L (39-117) H 09/28/25 16:16 Troponin I High Sens 4.6 ng/L (<3.5-35.0) 10/02/25 11:06 NT-Pro-B Natriuret Pep 703.5 pg/mL (<300) H 09/23/25 10:48 Total Protein 5.1 g/dL (6.5-8.0) L 09/28/25 16:16 Albumin 2.1 g/dL (3.5-5.0) L 09/28/25 16:16 Lipase 25 U/L (8-78) 09/23/25 10:48 Urine Color Yellow 09/23/25 13:46 Urine Appearance Clear 09/23/25 13:46 Urine pH 7.0 (5.0-9.0) 09/23/25 13:46 Ur Specific [place] <= 1.005 (1.005-1.025) 09/23/25 13:46 Urine Protein Negative mg/dL (Neg-Trace) 09/23/25 13:46 Urine Glucose (UA) Negative mg/dL (Negative) 09/23/25 13:46 Urine Ketones Negative mg/dL (Negative) 09/23/25 13:46 Urine Blood Negative (Negative) 09/23/25 13:46 Urine Nitrite Negative (Negative) 09/23/25 13:46 Ur Leukocyte Esterase Negative (Negative) 09/23/25 13:46 Pleural WBC 0.344 X10*3/uL 10/03/25 11:40 Pleural RBC < 0.002 X10*6/uL 10/03/25 11:40 Pleural Neutrophils 25 % 10/03/25 11:40 Pleural Lymphocytes 7 % 10/03/25 11:40 Pleural Monocytes 4 % 10/03/25 11:40 Pleural Eosinophils 1 % 10/03/25 11:40 Pleural Basophils 1 % 10/03/25 11:40 Pleural Other Cells 62 % 10/03/25 11:40 Pleural Total Protein 2.0 10/03/25 11:40 Pleural Albumin 1.3 10/03/25 11:40 Pleural LDH 129 10/03/25 11:40 Pleural Glucose 86 10/03/25 11:40 Stool Occult Blood NEGATIVE (NEGATIVE) 09/23/25 12:37 Influenza Type A (PCR) NEGATIVE (Negative) 09/23/25 10:51 Influenza Type B (PCR) NEGATIVE (Negative) 09/23/25 10:51 RSV RNA Qual (PCR) NEGATIVE (Negative) 09/23/25 10:51 SARS-CoV-2 RNA (RT-PCR) NEGATIVE (Negative) 09/23/25 10:51 Blood Type A Positive 09/23/25 12:05 Antibody Screen NEGATIVE 09/23/25 12:05 Crossmatch See Detail 09/23/25 12:05 - Imaging Radiologist's impression: ITS Impressions Chest X-Ray 09/23/25 11:01 IMPRESSION: 1. COPD. 2. Known pulmonary mass in the right upper lobe is partially obscured by a chest lead. 3. Patchy airspace disease in the right lower lung, suspicious for pneumonia. 4. Small layering effusions bilaterally with associated left base atelectasis. Electronically signed by: Paolo Quesada MD 09/23/2025 11:14 AM EST RP Chest X-Ray 09/27/25 09:41 IMPRESSION: Worsening pulmonary edema. Pulmonary nodules, right hemithorax. Right-sided pleural effusion, small to moderate volume. Chronic interstitial lung disease. Electronically signed by: Trent Mota MD 09/27/2025 09:53 AM EST RP Chest X-Ray 10/02/25 08:34 IMPRESSION: Right lung consolidation, increased from previous. Left basilar hazy opacities.. Possible small bilateral pleural effusions. Recommend follow-up to resolution.. Electronically signed by: Loyd Louise MD 10/02/2025 08:48 AM EST RP Chest CTA 10/02/25 14:26 IMPRESSION: Acute pulmonary artery emboli, subsegmental branches to the left lower lung lobe. Positive exam. No right ventricular strain sign. Concerning malignancy, right upper lung lobe. Bilateral pleural effusions, moderate to large volume. Pericardial effusion, moderate volume. Emphysema. Coronary artery disease and atherosclerosis disease.. Fleischner guidelines were followed. Electronically signed by: Trent Mota MD 10/02/2025 03:23 PM EST RP Chest X-Ray 10/03/25 11:46 IMPRESSION: 1. Small left pleural effusion. No pneumothorax. 2. 2.3 cm right upper lobe mass without change. 3. Opacification of the left lung base may represent atelectasis or pneumonia. Electronically signed by: Wander Toscano MD 10/03/2025 12:02 PM EST RP Thoracentesis Ultrasound 10/03/25 12:14 IMPRESSION: Ultrasound-guided bilateral thoracentesis. Electronically signed by: Tiffany Granado MD 10/03/2025 04:02 PM EST RP Thoracentesis Ultrasound 10/03/25 12:14 IMPRESSION: Ultrasound-guided bilateral thoracentesis. Electronically signed by: Tiffany Granado MD 10/03/2025 04:02 PM EST RP Chest X-Ray 10/03/25 12:18 IMPRESSION: 1. Small left pleural effusion. No pneumothorax. 2. 2.3 cm right upper lobe mass as seen previously. 3. Airspace opacity at the left lung base may represent atelectasis or pneumonia. Electronically signed by: Wander Toscano MD 10/03/2025 12:35 PM EST RP Assessment and Plan Patient Active problem list reviewed?: Yes (1) Non-small cell lung cancer Status: Chronic Assessment and plan: 1. This is a 70-year-old male diagnosed with [id number] lung cancer with liver metastasis diagnosed in July 2024. He has been receiving palliative chemotherapy with carboplatin, pemetrexed and pembrolizumab. Recently course complicated by severe anemia secondary to ongoing chemotherapy. He has been requiring blood transfusions. He presented on 09/23/2025 with worsening anemia and he was found to have acute hypoxic respiratory failure. He was diagnosed with severe anemia requiring blood transfusions as well as pneumonia for which he was receiving IV antibiotics. Patient developed new pulmonary symptoms of chest pain and worsening shortness of breath as well as cardiac arrhythmia, CT angiogram performed 10/02/2025 showed acute pulmonary emboli, subsegmental branches in the left lower lobe. Malignancy in the right upper lobe. Bilateral pleural effusions, [id number] volume. Pericardial effusion, moderate volume and emphysema. Echocardiogram revealed moderate circumferential pericardial effusion more prominent near the right-sided chambers. He underwent thoracentesis yesterday, pleural fluid cytology is pending. He has been started on prednisone 40 mg daily for probable inflammatory pericardial/pleural effusion. If cytology is negative for malignancy, dose of prednisone can be increased to 1 milligram/kilos, immunotherapy can cause pericarditis and pleuritis. Agree with unfractionated heparin, no role of IVC filter placement. Lower extremity Dopplers were negative. Monitor CBC daily and re-evaluate pericardial effusion. He can be switched to Eliquis without loading dose once he is stable and does not require any further surgical procedures. - Time Spent With Patient Time Spent with Patient (in minutes): 20 Additional Coding: - Additional E/M codes Complex E/M visit Add On: CPT G2211
--- NOTE | 2025-10-04 10:33 | MHC.CM.PN ---
Per [facility], Patient is not yet medically cleared for dc (IV ABX & Heparin Drip).
--- NOTE | 2025-10-04 10:38 | MHC.CLN ---
F/U PT WITH INCREASED NUTRITION RISK R/T PRESSURE INJURY DIET ADVANCED TO REGULAR RECOMMEND STARTING ENSURE TID TO PROMOTE WOUND HEALING SUPP TO PROVIDE 1050KCALS, 60G PROTEIN MONITOR PO INTAKE AND ENCOURAGE SUPPLEMENTS
[2025-10-04] MEDS: Heparin Sodium,Porcine/1/2NS 25,000 UNIT/250 ML IV.SOLN 10.63 UNIT IVCONT (10:58)
[2025-10-04 11:17] LABS: PTT Heparin Drip 47.8 SEC (53-77.9)
--- NOTE | 2025-10-04 12:10 | P.PNIM_ITS ---
Subjective Subjective Date of Service: 10/04/25 Interval History: No more chest pain overnight, and no arrythmia and no hypoxia Thoracentesis yesterday 1 L removed Review of Systems Review of Systems: Yes all other systems are reviewed and are negative Physical Exam 2 Exam: Exam: General: AxOx3, on acute respiratory distress with supplemental oxygen, frail CVS; iregular, S1 S2 normal Lungs: Coarse bilateral breath sounds, rales in bases, improved Abd: Soft non tender, non distended Ext: No edema and no calf tenderness MSK: moving all 4 limbs Skin: No cyanosis or edema Psych: Cooperative with exam Neurology: no focal deficit Vital Signs: Vital Signs: Last Vital Signs Temp 97.4 F 10/04/25 07:42 Pulse 87 10/04/25 07:44 Resp 17 10/04/25 07:44 BP 112/65 10/04/25 07:42 Pulse Ox 98 10/04/25 07:42 O2 Del Method Nasal Cannula 10/04/25 07:42 O2 Flow Rate 3 10/04/25 07:42 Oxygen Flow Rate 4 10/02/25 17:10 BMI result Body Mass Index 25.8 Const: Other: .ex Objective Data Active Medications Acetaminophen (Acetaminophen 325 Mg Tablet) 650 mg PO Q6H PRN PRN Reason: Pain, Mild 1-3,fever,headache Last Admin: 09/28/25 07:53 Dose: 650 mg Documented By: WILLIE Amlodipine Besylate (Amlodipine Besylate 10 Mg Tablet) 10 mg PO DAILY [facility]; Protocol Last Admin: 10/04/25 08:57 Dose: 10 mg Documented By: ELVA Calcium Carbonate (Calcium Carbonate 750 Mg Tab.Chew) 750 mg PO Q4H PRN PRN Reason: Heartburn Fluticasone/Vilanterol (Fluticasone/Vilanterol 200/25 Blst.W.Dev) 1 puff INHALE RDAILY [facility] Last Admin: 10/04/25 07:42 Dose: 1 puff Documented By: ADELINE Folic Acid (Folic Acid 1 Mg Tablet) 1 mg PO DAILY [facility] Last Admin: 10/04/25 08:57 Dose: 1 mg Documented By: ELVA Furosemide (Furosemide 20 Mg Tablet) 20 mg PO DAILY [facility]; Protocol Last Admin: 10/04/25 08:57 Dose: 20 mg Documented By: ELVA Heparin Sodium (Porcine) (Heparin Sodium,Porcine 5,000 Unit/Ml Vial) 3,500 unit 40 unit/kg (3500 unit) IVPUSH PROTOCOL BOLUS PRN; Protocol PRN Reason: 40 unit/kg - Heparin Protocol Last Admin: 10/04/25 11:33 Dose: 3,500 unit Documented By: ELVA Heparin Sodium (Porcine) (Heparin Sodium,Porcine 5,000 Unit/Ml Vial) 7,100 unit 80 unit/kg (7100 unit) IVPUSH PROTOCOL BOLUS PRN; Protocol PRN Reason: 80 unit/kg - Heparin Protocol Ceftriaxone Sodium 1 gm/ (Sodium Chloride) 50 mls @ 100 mls/hr IV Q24H [facility] Stop: 10/06/25 07:44 Last Infusion: 10/04/25 11:45 Dose: Infused Documented By: ELVA Heparin Sodium/Sodium Chloride (Heparin Sodium,Porcine/1/2ns) 25,000 unit in 250 mls @ 0 mls/hr IVCONT .Q0M [facility]; Protocol Last Titration: 10/04/25 11:29 Dose: 14 units/kg/hr, 12.4 mls/hr Documented By: ELVA Co-signed By: AMANDA Ipratropium Custer (Ipratropium Custer Osorio 0.06 % 15 Ml [place]) 2 spray NOSTRIL-B TID PRN PRN Reason: allergies Magnesium Hydroxide (Milk Of Magnesia 30 Ml Oral.Susp) 30 ml PO DAILY PRN PRN Reason: Constipation Last Admin: 10/03/25 20:07 Dose: 30 ml Documented By: CINDY Meclizine HCl (Meclizine Hcl 25 Mg Tablet) 25 mg PO Q8H PRN PRN Reason: Vertigo Melatonin (Melatonin 3 Mg Tablet) 6 mg PO BEDTIME PRN PRN Reason: Insomnia Metoprolol Tartrate (Metoprolol Tartrate 25 Mg Tablet) 25 mg PO TID [facility]; Protocol Last Admin: 10/04/25 08:57 Dose: 25 mg Documented By: ELVA Morphine Sulfate (Morphine Sulfate 4 Mg/Ml Cartridge) 2 mg IVPUSH Q4H PRN; Protocol PRN Reason: Pain, Severe (Pain Scale 7-10) Last Admin: 10/03/25 18:36 Dose: 2 mg Documented By: ELVA Ondansetron HCl (Ondansetron Hcl 4 Mg/2 Ml Vial) 4 mg IVPUSH Q8H PRN PRN Reason: Nausea and Vomiting Prednisone (Prednisone 20 Mg Tablet) 40 mg PO DAILY [facility] Last Admin: 10/04/25 08:57 Dose: 40 mg Documented By: ELVA Sodium Chloride (0.9 % Sodium Chloride Flush 3 Ml Syringe) 3 ml IVFLUSH QSHIFT [facility] Last Admin: 10/04/25 08:58 Dose: 3 ml Documented By: ELVA Labs 10/04/25 03:55 10/04/25 03:55 Labs: Laboratory Results - last 24 hr 10/03/25 10/03/25 10/03/25 11:40 12:43 19:38 MCV MCH MCHC RDW Plt Count MPV Absolute Nucleated RBC Nucleated RBC % (auto) PT 14.2 H INR 1.2 H aPTT Heparin Protocol 34.2 L 51.1 L D Anion Gap Estim Creat Clear Calc Estimated GFR POC Glucose Random Glucose Calcium Pleural WBC 0.344 Pleural RBC < 0.002 Pleural Neutrophils 25 Pleural Lymphocytes 7 Pleural Monocytes 4 Pleural Eosinophils 1 Pleural Basophils 1 Pleural Other Cells 62 Pleural Total Protein 2.0 Pleural Albumin 1.3 Pleural LDH 129 Pleural Glucose 86 10/03/25 10/04/25 10/04/25 20:45 02:19 03:55 MCV 95.1 MCH 31.4 MCHC 33.0 RDW 19.4 H Plt Count 317 D MPV 10.0 Absolute Nucleated RBC 0.000 Nucleated RBC % (auto) 0.0 PT 14.3 H INR 1.2 H aPTT Heparin Protocol 168.9 H* D 82.8 H D Anion Gap 12 Estim Creat Clear Calc 89.7 Estimated GFR > 60 POC Glucose 167 H Random Glucose 170 H Calcium 8.0 L Pleural WBC Pleural RBC Pleural Neutrophils Pleural Lymphocytes Pleural Monocytes Pleural Eosinophils Pleural Basophils Pleural Other Cells Pleural Total Protein Pleural Albumin Pleural LDH Pleural Glucose 10/04/25 10:52 MCV MCH MCHC RDW Plt Count MPV Absolute Nucleated RBC Nucleated RBC % (auto) PT INR aPTT Heparin Protocol 47.8 L D Anion Gap Estim Creat Clear Calc Estimated GFR POC Glucose Random Glucose Calcium Pleural WBC Pleural RBC Pleural Neutrophils Pleural Lymphocytes Pleural Monocytes Pleural Eosinophils Pleural Basophils Pleural Other Cells Pleural Total Protein Pleural Albumin Pleural LDH Pleural Glucose Microbiology Microbiology Results: Microbiology 10/03/25 11:40 Gram Stain - Final Thoracentesis Fluid Anaerobic Culture - Preliminary No growth to date. Body Fluid Culture - Preliminary No growth to date. 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 Required 4 units of packed red blood cells on 09/23, 2 units on 09/24. Patient received IV Lasix on 09/26, with chest x ray showing pulmonary edema. Patient persisted with shortness of breath, repeat xray on 09/28 showing Pneumonia. patient initiate on IV antiobiocs, patient previously refused in goint to STR, on 10/01 after trying to use the bathroom due to weakness, accepted in going to rehab Acute hypoxic respiratory failure, likely multifactorial in origin--PNA, anemia hypoxia resolved. PNA, has completed Abx with Rocephain x 7 d and Azithro x 5 dd, wa seen by pulm, CXR 10/04, increased consolodiaton and having chest pain, and tachy, CTA yesterday 10/02 bilateral pleural effusion, and pericardial effusion s/p thoracentesis today 1.05 Non-bloody effusion, sent for cytology and cell count SVTs, PACs --started on metoprolol with good effect PE seen on CTA on 10/02, no hypoxia Startedb IV heparin 10/03, and closely monitor H/H, given recent anemia needing multiple transfusion H/H is stable today, changing to eliquis tomorrow if H/H still stable Pericardial effusion on CT , deemed small and not safe for pericardiocentesis relatively new compare to recent CT, will repeat Echo in near future cardiology advises Prednisone for possible pericarditis likely from chemo agents Anemia, acute on chronic likely from malignancy, s/p 6 units H/H has been stable Mild HFpEF Continue home dose of lasix Monitor for signs of fluid overload stop ivf--being given for pericardial effusion Tachycardia overnight, ECG PAsC not AFIB Monitor, cont metoprolol HTN, chronic continue amlodipine, Lasix, monitor adjust medications accordingly COPD, no exacerbation at this time continue inhalers, keep sat 88 to 92 [id number] lung carcinoma with metastasis currently on chemotherapy 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 -imaging reviewed -[place] [facility] [place] -monitor for any signs of worsening shortness of breath, hemoptysis Ambulatory dysfunction Generalized weakness -PT/OT consulted DVT Ppx Lovenox Code Status: DNR/DNI, discussed with patient and sister (HCP) 10/02 Dispo: Will need STR, for being very frail from hospitalization for PEs, anemia active cancer Total time managing care of this patient today: 55 minutes. Quality Stroke Does the patient have a stroke diagnosis?: No VTE Prior VTE?: No VTE Risk Level:: Medical - moderate - high VTE Device Contraindication: Treatment Not Indicated VTE Drug Contraindication: N/A - Med Ordered
--- NOTE | 2025-10-04 14:13 | PM.PNCARD ---
Subjective Subjective Date of Service: 10/04/25 Principal diagnosis: Pericardial effusion, pleural effusion, pulmonary embolism. Interval history: Patient has no more chest discomfort. No significant shortness of breath. Hematocrit has remained stable on IV heparin. Review of Systems Constitutional: Reports malaise and Reports weakness Cardiovascular: Denies chest pain, Denies leg edema, Denies lightheadedness, Denies Loss of Consciousness and Reports dyspnea on exertion Respiratory: Reports cough and Reports dyspnea on exertion Gastrointestinal: Reports no additional gastrointestinal complaints Reports weakness Psychiatric: Reports no additional psychiatric complaints Physical Exam Vital Signs: Last Vital Signs Temp 97.4 F 10/04/25 07:42 Pulse 87 10/04/25 11:50 Resp 17 10/04/25 07:44 BP 112/65 10/04/25 07:42 Pulse Ox 98 10/04/25 07:42 O2 Del Method Nasal Cannula 10/04/25 07:42 O2 Flow Rate 3 10/04/25 07:42 Oxygen Flow Rate 4 10/02/25 17:10 BMI result Body Mass Index 25.8 Const General: cooperative, comfortable, alert, awake and anxious Nutritional Appearance: average body habitus Orientation/consciousness: patient oriented x3 HEENT Head: Yes normocephalic and Yes atraumatic Neck Neck: Yes trachea midline, Yes supple and Yes no JVD Chest Chest palpation & inspection: tenderness xiphoid process Resp Effort & Inspection: normal respiratory effort Auscultation: breath sounds absent bilateral (Basis) and diminished lung sounds Cardio Jugular venous distension: no JVD Rate: tachycardic Rhythm: regular rhythm Heart sounds: S1 normal heart sound present, S2 normal heart sound present, no click, no gallops and Murmur heart sound present systolic GI Auscultation: normal bowel sounds Skin General skin exam: no rashes or lesions noted Neuro General: patient oriented x3 and no focal motor deficits Extrem General: Yes no clubbing, cyanosis or edema Objective Labs and Meds 10/04/25 03:55 10/04/25 03:55 Lab results: Laboratory Results - last 24 hr 10/03/25 10/03/25 10/03/25 11:40 19:38 20:45 WBC RBC Hgb Hct MCV MCH MCHC RDW Plt Count MPV Absolute Nucleated RBC Nucleated RBC % (auto) PT INR aPTT Heparin Protocol 51.1 L D Sodium Potassium Chloride Carbon Dioxide Anion Gap BUN Creatinine Estim Creat Clear Calc Estimated GFR POC Glucose 167 H Random Glucose Calcium Pleural Neutrophils 25 Pleural Lymphocytes 7 Pleural Monocytes 4 Pleural Eosinophils 1 Pleural Basophils 1 Pleural Other Cells 62 Pleural Total Protein 2.0 Pleural Albumin 1.3 Pleural LDH 129 Pleural Glucose 86 10/04/25 10/04/25 10/04/25 02:19 03:55 10:52 WBC 9.3 RBC 2.87 L Hgb 9.0 L Hct 27.3 L MCV 95.1 MCH 31.4 MCHC 33.0 RDW 19.4 H Plt Count 317 D MPV 10.0 Absolute Nucleated RBC 0.000 Nucleated RBC % (auto) 0.0 PT 14.3 H INR 1.2 H aPTT Heparin Protocol 168.9 H* D 82.8 H D 47.8 L D Sodium 136 Potassium 4.4 Chloride 97 Carbon Dioxide 31 H Anion Gap 12 BUN 20 H Creatinine 0.89 Estim Creat Clear Calc 89.7 Estimated GFR > 60 POC Glucose Random Glucose 170 H Calcium 8.0 L Pleural Neutrophils Pleural Lymphocytes Pleural Monocytes Pleural Eosinophils Pleural Basophils Pleural Other Cells Pleural Total Protein Pleural Albumin Pleural LDH Pleural Glucose Imaging Radiologist's impression: Impressions Thoracentesis Ultrasound 10/03/25 12:14 IMPRESSION: Ultrasound-guided bilateral thoracentesis. Electronically signed by: Tiffany Granado MD 10/03/2025 04:02 PM EST RP Thoracentesis Ultrasound 10/03/25 12:14 IMPRESSION: Ultrasound-guided bilateral thoracentesis. Electronically signed by: Tiffany Granado MD 10/03/2025 04:02 PM EST RP Progress Note: A&P Assessment and plan (1) Pericardial effusion: Status: Acute Assessment and Plan: Pericardial effusion moderate near right-sided chambers. Started on IV heparin. Etiology is unclear question pericardial inflammation. Continue with steroid therapy. Gradually taper after 1 week of therapy. Follow-up limited echocardiogram tomorrow on IV heparin to see if there is any increased. (2) Cardiac arrhythmia: Status: Acute Assessment and Plan: SVT without any recurrence. He does have PACs and PVCs. Continue low-dose metoprolol therapy. Will follow with you Time Spent With Patient Time: Total time managing care of this patient today ____ minutes. Progress Note: Quality Stroke Does the patient have a stroke diagnosis?: No Procedures Date of Service Date of Service: 10/04/25
[2025-10-04 18:51] LABS: PTT Heparin Drip 124.8 SEC (53-77.9)
[2025-10-04 21:11] LABS: PTT Heparin Drip 43.2 SEC (53-77.9)
[2025-10-05 03:53] VITALS: BP 107/59; PULSE 70; RESP 18; TEMP 36.4; O2SAT 96
[2025-10-05 04:17] LABS: PTT Heparin Drip 50.2 SEC (53-77.9)
[2025-10-05 04:21] LABS: Anion Gap 12 (12-20); Blood Urea Nitrogen 26 mg/dL (9-16); Calcium 7.8 mg/dL (8.4-10.2); Carbon Dioxide 29 mmol/L (22-29); Chloride 98 mmol/L (96-108); Creatinine Clr Calc Pharmacy 101.1; Estimated Glomerular Filt Rate > 60; Potassium 4.2 mmol/L (3.3-5.1); Sodium 135 mmol/L (135-145)
[2025-10-05 07:24] VITALS: BP 111/64; PULSE 68; RESP 20; TEMP 36.3; O2SAT 98
[2025-10-05] MEDS: Fluticasone/Vilanterol 200/25 BLST.W.DEV 1 PUFF INHALE (08:07)
[2025-10-05 08:09] VITALS: PULSE 68; RESP 16
[2025-10-05] MEDS: 0.9 % Sodium Chloride Flush 3 ML SYRINGE IVFLUSH (08:50)
--- NOTE | 2025-10-05 09:00 | CA_ITS ---
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 Trivial pericardial effusion is present 2. Normal LV systolic function Findings Procedure Information Contrast agent, definity, is being given per protocol without apparent complications. Left Ventricle Mildly increased left ventricular cavity size. The left ventricular systolic function is normal. The visually estimated ejection fraction is between 60 65%. Spectral Doppler is indicative of an impaired relaxation filling pattern. Pericardium/Pleural There is a trivial pericardial effusion. Prior Study Comparison Changes noted compared to prior study dated: 10/02/2025. pericardial effusion significantly improved Measurements 2D Linear Measurements LVIDd: 5.80 3.9-5.3/4.2-5.9 cm LVIDd Index: 2.72 2.4-3.2/2.2-3.1 cm/m2 LVIDs: 4.93 2.0-3.6 cm 2D Systolic Function EF 4C: 60.10 >55% EF 2C: 64.60 >55% EF BiP: 62.60 >55% Mitral Valve MV Pk E: 0.60 MV PK A: 0.67 MV Decel Time: 207.00 E/A: 0.90 E'Lateral: 7.51 E'Medial: 6.42 E/E' Med: 9.30 E/E' Lat: 7.90 PHT: 61.00 MVA PHT: 3.61 Decel Cross: 2.88 Diastolic Function MV Pk E: 0.60 MV Pk A: 0.67 E/A: 0.90 E'Medial: 6.42 E/E' Med: 9.30 E' Laterial: 7.51 E/E' Lat: 7.90 Updated in Other Vendor System with Status of Final Carlton Reese MD electronically signed on 10/05/2025 12:57:47 PM with status of Final
--- NOTE | 2025-10-05 10:29 | P.PNCA_ITS ---
Subjective Subjective Date of Service: 10/05/25 Principal diagnosis: Pericardial effusion, pleural effusion, pulmonary embolism. Interval history: Patient feeling a lot better. No chest pain. Shortness of breath is stable. Says got short of breath when he is walking around. No significant arrhythmias overnight. Review of Systems Constitutional: Reports fatigue and Reports weakness Eyes: Reports no additional eye complaints Cardiovascular: Denies chest pain, Denies leg edema, Denies palpitations, Reports dyspnea on exertion and Denies orthopnea Respiratory: Reports no additional respiratory complaints and Reports dyspnea on exertion Gastrointestinal: Reports no additional gastrointestinal complaints Musculoskeletal: Reports muscle weakness Reports weakness Psychiatric: Reports no additional psychiatric complaints Endocrine: Reports fatigue and Denies palpitations Physical Exam Vital Signs: Last Vital Signs Temp 97.4 F 10/05/25 07:24 Pulse 68 10/05/25 08:09 Resp 16 10/05/25 08:09 BP 111/64 10/05/25 07:24 Pulse Ox 98 10/05/25 07:24 O2 Del Method Nasal Cannula 10/05/25 07:24 O2 Flow Rate 2 10/05/25 07:24 Oxygen Flow Rate 4 10/02/25 17:10 BMI result Body Mass Index 25.8 Const General: cooperative, comfortable, alert, awake and anxious Nutritional Appearance: average body habitus Orientation/consciousness: patient oriented x3 HEENT Head: Yes normocephalic and Yes atraumatic Neck Neck: Yes trachea midline, Yes supple and Yes no JVD Chest Chest palpation & inspection: tenderness xiphoid process Resp Effort & Inspection: normal respiratory effort Auscultation: wheezes and diminished lung sounds Cardio Jugular venous distension: no JVD Rate: regular rate Rhythm: regular rhythm Heart sounds: S1 normal heart sound present, S2 normal heart sound present, no click, no gallops and Murmur heart sound present systolic GI Auscultation: normal bowel sounds Skin General skin exam: no rashes or lesions noted Neuro General: patient oriented x3 and no focal motor deficits Extrem General: Yes no clubbing, cyanosis or edema Objective Labs and Meds 10/04/25 03:55 10/05/25 03:42 Lab results: Laboratory Results - last 24 hr 10/04/25 10/04/25 10/04/25 10:52 17:24 20:00 aPTT Heparin Protocol 47.8 L D 124.8 H* D 43.2 L D Sodium Potassium Chloride Carbon Dioxide Anion Gap BUN Creatinine Estim Creat Clear Calc Estimated GFR Random Glucose Calcium 10/05/25 03:42 aPTT Heparin Protocol 50.2 L Sodium 135 Potassium 4.2 Chloride 98 Carbon Dioxide 29 Anion Gap 12 BUN 26 H Creatinine 0.79 Estim Creat Clear Calc 101.1 Estimated GFR > 60 Random Glucose 153 H Calcium 7.8 L Progress Note: A&P Assessment and plan (1) Pericardial effusion: Status: Acute Assessment and Plan: Pericardial effusion which on repeat echo today has significantly improved without any evidence of tamponade or constrictive physiology. At this point time continue with steroid therapy and treatment of his pericardial effusion. Appears to be most likely inflammatory in nature given response to anti- inflammatory therapy. Continue prednisone eventually gradually taper it. Can continue with oral anticoagulation therapy for his pulmonary embolism. No clinical signs of heart failure. Can continue low-dose Lasix as prescribed. (2) Cardiac arrhythmia: Status: Acute Assessment and Plan: Cardiac arrhythmias with PACs and run of SVT in his setting of pericardial effusion. No recurrence since then. Continue metoprolol therapy. Will sign of the case. Thank you for allowing me to partake in his care Time Spent With Patient Time: Total time managing care of this patient today ____ minutes. Progress Note: Quality Stroke Does the patient have a stroke diagnosis?: No Procedures Date of Service Date of Service: 10/05/25
[2025-10-05 11:03] LABS: PTT Heparin Drip 80.5 SEC (53-77.9)
[2025-10-05] MEDS: Heparin Sodium,Porcine/1/2NS 25,000 UNIT/250 ML IV.SOLN 8.86 UNIT IVCONT (11:13)
--- NOTE | 2025-10-05 13:39 | PM.HEMONCPN ---
Medical Summary - Medical Summary Date of Service: 10/05/25 Chief complaint: PE Primary Care Provider: NELY Rich Medical Summary: He is hospitalized for acute PE and anemia in the context of treatment with chemotherapy for lung cancer. 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 Evaluation revealed hemoglobin of 5.5 gram/dL as well as elevated BNP. He received several units blood transfusion. Chest x-ray demonstrated known pulmonary mass in the right upper lobe and patchy airspace disease in the right lower lung suspicious for pneumonia. Patient was being treated for acute hypoxic respiratory failure secondary to pneumonia and severe anemia. He was started on Rocephin and azithromycin. Patient developed chest pain since last night, ECG showed new atrial fibrillation with RVR. CT angiogram performed 10/02/2025 showed acute pulmonary emboli, subsegmental branches in the left lower lobe. Malignancy in the right upper lobe. Bilateral pleural effusions, [id number] volume. Pericardial effusion, moderate volume and emphysema. Echocardiogram revealed moderate circumferential pericardial effusion more prominent near the right-sided chambers. Patient had thoracentesis yesterday and feels a lot better today. He has been started on prednisone. He is on unfractionated heparin for pulmonary embolism. Review of Systems - Constitutional Reports anorexia - Eyes Reports other - ENT Reports other - Cardiovascular Reports shortness of breath with activity - Respiratory Reports dyspnea on exertion - Gastrointestinal Reports cramping - Genitourinary Genitourinary: Reports urinary hesitancy - Musculoskeletal Reports muscle weakness - Neurologic Reports system reviewed and no additional complaints, except as documented, Reports hearing normal, Reports weakness, Denies abnormal gait [facility] Medical History: Medical History (Last Reviewed 10/02/25 @ 16:58 by Carlton Reese MD) Alcohol use disorder Anemia in chronic illness Cognitive disorder COPD (chronic obstructive pulmonary disease) Edema Hypertension Lung cancer Lung mass Lymphadenopathy Nicotine dependence, cigarettes, uncomplicated Pancreatic mass Pressure ulcer Rhabdomyolysis SVT (supraventricular tachycardia) Swelling of right hand Family History: Family History (Last Reviewed 10/02/25 @ 16:58 by Carlton Reese MD) Father No problems noted. Mother Lung cancer Family/Other Lung cancer Throat cancer Surgical History: Surgical History (Last Reviewed 10/02/25 @ 16:58 by Carlton Reese MD) History of colonoscopy History of lumbar laminectomy Social History: Social History (Last Reviewed 10/02/25 @ 16:58 by Carlton Reese MD) Living Situation History: Household Members: None Household Members Other:: pt lives alone Housing: Apartment Are you a primary date night caregiver to a significant other at home: No Do you presently have visiting nurse or other home services: Yes Do you presently have visiting nurse or other home services comment: VNA and PT Tobacco History: Patient Tobacco Use Status: Current everyday Tobacco Tobacco use type: Cigarette Cigarette Packs Per Day: 1 Years Smoked: (onset 16yo, 1-1.5ppd x 53yrs, 60+PYH) e-Cigarette/Vaping Use: Currently Using Second Hand Smoke Exposure: No Advance Directives: Advance Directives Date on File: 12/14/22 Occupation Assessmet: service: No 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 Sex/Gender Assessment: Gender identity: Male Home Medications and Allergies Current Medications: Current Medications Acetaminophen (Acetaminophen 325 Mg Tablet) 650 mg PO Q6H PRN PRN Reason: Pain, Mild 1-3,fever,headache Last Admin: 09/28/25 07:53 Dose: 650 mg Amlodipine Besylate (Amlodipine Besylate 10 Mg Tablet) 10 mg PO DAILY [facility]; Protocol Last Admin: 10/05/25 08:50 Dose: 10 mg Calcium Carbonate (Calcium Carbonate 750 Mg Tab.Chew) 750 mg PO Q4H PRN PRN Reason: Heartburn Fluticasone/Vilanterol (Fluticasone/Vilanterol 200/25 Blst.W.Dev) 1 puff INHALE RDAILY [facility] Last Admin: 10/05/25 08:07 Dose: 1 puff Folic Acid (Folic Acid 1 Mg Tablet) 1 mg PO DAILY [facility] Last Admin: 10/05/25 08:50 Dose: 1 mg Furosemide (Furosemide 20 Mg Tablet) 20 mg PO DAILY [facility]; Protocol Last Admin: 10/05/25 08:49 Dose: 20 mg Heparin Sodium (Porcine) (Heparin Sodium,Porcine 5,000 Unit/Ml Vial) 3,500 unit 40 unit/kg (3500 unit) IVPUSH PROTOCOL BOLUS PRN; Protocol PRN Reason: 40 unit/kg - Heparin Protocol Last Admin: 10/05/25 04:30 Dose: 3,500 unit Heparin Sodium (Porcine) (Heparin Sodium,Porcine 5,000 Unit/Ml Vial) 7,100 unit 80 unit/kg (7100 unit) IVPUSH PROTOCOL BOLUS PRN; Protocol PRN Reason: 80 unit/kg - Heparin Protocol Ceftriaxone Sodium 1 gm/ (Sodium Chloride) 50 mls @ 100 mls/hr IV Q24H [facility] Stop: 10/06/25 07:44 Last Infusion: 10/05/25 09:24 Dose: Infused Heparin Sodium/Sodium Chloride (Heparin Sodium,Porcine/1/2ns) 25,000 unit in 250 mls @ 0 mls/hr IVCONT .Q0M [facility]; Protocol Last Admin: 10/05/25 11:13 Dose: 10 units/kg/hr, 8.86 mls/hr Ipratropium Rowena (Ipratropium Rowena Osorio 0.06 % 15 Ml [place]) 2 spray NOSTRIL-B TID PRN PRN Reason: allergies Magnesium Hydroxide (Milk Of Magnesia 30 Ml Oral.Susp) 30 ml PO DAILY PRN PRN Reason: Constipation Last Admin: 10/03/25 20:07 Dose: 30 ml Meclizine HCl (Meclizine Hcl 25 Mg Tablet) 25 mg PO Q8H PRN PRN Reason: Vertigo Melatonin (Melatonin 3 Mg Tablet) 6 mg PO BEDTIME PRN PRN Reason: Insomnia Metoprolol Tartrate (Metoprolol Tartrate 25 Mg Tablet) 25 mg PO TID [facility]; Protocol Last Admin: 10/05/25 08:51 Dose: 25 mg Morphine Sulfate (Morphine Sulfate 4 Mg/Ml Cartridge) 2 mg IVPUSH Q4H PRN; Protocol PRN Reason: Pain, Severe (Pain Scale 7-10) Last Admin: 10/03/25 18:36 Dose: 2 mg Ondansetron HCl (Ondansetron Hcl 4 Mg/2 Ml Vial) 4 mg IVPUSH Q8H PRN PRN Reason: Nausea and Vomiting Prednisone (Prednisone 20 Mg Tablet) 40 mg PO DAILY [facility] Last Admin: 10/05/25 08:50 Dose: 40 mg Sodium Chloride (0.9 % Sodium Chloride Flush 3 Ml Syringe) [address] [facility] Last Admin: 10/05/25 08:50 Dose: 3 ml Home Medications ?Medication ?Instructions ?Recorded ?Confirmed ?Type dexamethasone 4 mg tablet See Rx Instructions .Route .COMPLEX 08/27/25 09/23/25 History ipratropium bromide 42 mcg (0.06 2 spray intranasal TID PRN 08/27/25 09/23/25 History %) nasal spray allergies furosemide 20 mg tablet (Lasix) 20 mg PO DAILY Weight gain 09/23/25 09/23/25 History Allergies Allergy/AdvReac Type Severity Reaction Status Date / Time No Known Allergies Allergy Verified 09/23/25 09:19 Exam Vital signs: Vital Signs Temp 97.4 F 10/05/25 07:24 Pulse 68 10/05/25 08:09 Resp 16 10/05/25 08:09 BP 111/64 10/05/25 07:24 Pulse Ox 98 10/05/25 07:24 O2 Del Method Nasal Cannula 10/05/25 07:24 O2 Flow Rate 2 10/05/25 07:24 Intake & Output 10/04/25 10/05/25 10/05/25 18:59 06:59 18:59 Intake Total 547.314 / 610.811 63.497 / 610.811 121.487 / 121.487 Output Total 230 / 1280 1050 / 1280 Balance 317.314 / -669.189 -986.503 / -669.189 121.487 / 121.487 Urine Output (Average ml/kg/hr) 0.22 0.47 0.47 Intake: Intake, Oral Amount 332 / 332 Intake, IV Amount 215.314 / 278.811 63.497 / 278.811 121.487 / 121.487 cefTRIAXone sodium 1 gm In 0.9 50 / 50 50 / 50 % Sodium Chloride 50 ml @ 100 mls/hr IV Q24H [facility] Rx#: [id number] Heparin Sodium,Porcine/1/2NS 25 165.314 / 228.811 63.497 / 228.811 71.487 / 71.487 ,000 unit In 250 ml @ Per Protocol IVCONT .Q0M [facility] Rx#: [id number] Output: Output, Urine Amount 230 / 730 500 / 730 Output, Post Void Residual 550 / 550 Amount Other: Breakfast % Eaten 75% Lunch % Eaten 75% Number of Unmeasured Voids 1 Number of Bowel Movements 1 Urine purewick Urine Color Yellow Weight 88.6 kg BMI result Body Mass Index 25.8 - Constitutional Present: no acute distress, moderate distress - Routine HEENT Exam Head: Present: normal inspection ENT: Present: mucous membranes moist - Routine Neck Exam Present: full ROM - Routine Respiratory Exam Present: accessory muscle use, decreased breath sounds - Routine Cardiovascular Exam Cardiovascular: Present: RRR, S1, S2, tachycardia - Routine Abdominal Exam Present: diminished bowel sounds - Routine Skin Exam Present: intact Data - Labs CBC & Chem 7: 10/04/25 03:55 10/05/25 03:42 - Imaging Radiologist's impression: ITS Impressions Chest X-Ray 09/23/25 11:01 IMPRESSION: 1. COPD. 2. Known pulmonary mass in the right upper lobe is partially obscured by a chest lead. 3. Patchy airspace disease in the right lower lung, suspicious for pneumonia. 4. Small layering effusions bilaterally with associated left base atelectasis. Electronically signed by: Paolo Quesada MD 09/23/2025 11:14 AM EST RP Chest X-Ray 09/27/25 09:41 IMPRESSION: Worsening pulmonary edema. Pulmonary nodules, right hemithorax. Right-sided pleural effusion, small to moderate volume. Chronic interstitial lung disease. Electronically signed by: Trent Mota MD 09/27/2025 09:53 AM EST RP Chest X-Ray 10/02/25 08:34 IMPRESSION: Right lung consolidation, increased from previous. Left basilar hazy opacities.. Possible small bilateral pleural effusions. Recommend follow-up to resolution.. Electronically signed by: Loyd Louise MD 10/02/2025 08:48 AM EST RP Chest CTA 10/02/25 14:26 IMPRESSION: Acute pulmonary artery emboli, subsegmental branches to the left lower lung lobe. Positive exam. No right ventricular strain sign. Concerning malignancy, right upper lung lobe. Bilateral pleural effusions, moderate to large volume. Pericardial effusion, moderate volume. Emphysema. Coronary artery disease and atherosclerosis disease.. Fleischner guidelines were followed. Electronically signed by: Trent Mota MD 10/02/2025 03:23 PM EST RP Chest X-Ray 10/03/25 11:46 IMPRESSION: 1. Small left pleural effusion. No pneumothorax. 2. 2.3 cm right upper lobe mass without change. 3. Opacification of the left lung base may represent atelectasis or pneumonia. Electronically signed by: Wander Toscano MD 10/03/2025 12:02 PM EST RP Thoracentesis Ultrasound 10/03/25 12:14 IMPRESSION: Ultrasound-guided bilateral thoracentesis. Electronically signed by: Tiffany Granado MD 10/03/2025 04:02 PM EST RP Thoracentesis Ultrasound 10/03/25 12:14 IMPRESSION: Ultrasound-guided bilateral thoracentesis. Electronically signed by: Tiffany Granado MD 10/03/2025 04:02 PM EST RP Chest X-Ray 10/03/25 12:18 IMPRESSION: 1. Small left pleural effusion. No pneumothorax. 2. 2.3 cm right upper lobe mass as seen previously. 3. Airspace opacity at the left lung base may represent atelectasis or pneumonia. Electronically signed by: Wander Toscano MD 10/03/2025 12:35 PM EST RP Assessment and Plan Patient Active problem list reviewed?: Yes (1) Pulmonary embolism Status: Acute Assessment and plan: He is doing well nd has improved. Respiration is comfortable. No bleeding is noted. Agree with current therapy. - Time Spent With Patient Time Spent with Patient (in minutes): 15
[2025-10-05 15:40] VITALS: BP 114/62; PULSE 70; RESP 20; TEMP 36.3; O2SAT 96
[2025-10-05 17:24] LABS: PTT Heparin Drip 49.2 SEC (53-77.9)
--- NOTE | 2025-10-05 17:46 | HO.PM.IMPN ---
Subjective Subjective Date of Service: 10/05/25 Interval History: Seen and examined this morning Interval history: Reports he is feeling well, denies any shortness of breath at rest. Has only been walking short distances with mild dyspnea. Denies any bleeding episodes. No chest pain Review of Systems Review of Systems: Yes all other systems are reviewed and are negative Physical Exam Exam: Exam: EXAM: Constitutional - Awake and Alert, No apparent distress Eyes - PERRL Cardiovascular - S1S2, RRR, No edema Respiratory - Normal lung expansion, Normal respiratory effort, No respiratory distress, CTA bilaterally Extremities - no calf tenderness bilaterally, no swelling Skin - Warm/Dry Neurological - Alert & oriented x3 Psychological - Appropriate affect Vital Signs: Vital Signs: Last Vital Signs Temp 97.4 F 10/05/25 15:40 Pulse 70 10/05/25 15:40 Resp 20 10/05/25 15:40 BP 114/62 10/05/25 15:40 Pulse Ox 96 10/05/25 15:40 O2 Del Method Nasal Cannula 10/05/25 15:40 O2 Flow Rate 2 10/05/25 15:40 Oxygen Flow Rate 4 10/02/25 17:10 BMI result Body Mass Index 25.8 Objective Data Active Medications Acetaminophen (Acetaminophen 325 Mg Tablet) 650 mg PO Q6H PRN PRN Reason: Pain, Mild 1-3,fever,headache Last Admin: 09/28/25 07:53 Dose: 650 mg Documented By: WILLIE Amlodipine Besylate (Amlodipine Besylate 10 Mg Tablet) 10 mg PO DAILY [facility]; Protocol Last Admin: 10/05/25 08:50 Dose: 10 mg Documented By: SHASTA Calcium Carbonate (Calcium Carbonate 750 Mg Tab.Chew) 750 mg PO Q4H PRN PRN Reason: Heartburn Fluticasone/Vilanterol (Fluticasone/Vilanterol 200/25 Blst.W.Dev) 1 puff INHALE RDAILY [facility] Last Admin: 10/05/25 08:07 Dose: 1 puff Documented By: OZIEL Folic Acid (Folic Acid 1 Mg Tablet) 1 mg PO DAILY [facility] Last Admin: 10/05/25 08:50 Dose: 1 mg Documented By: SHASTA Furosemide (Furosemide 20 Mg Tablet) 20 mg PO DAILY [facility]; Protocol Last Admin: 10/05/25 08:49 Dose: 20 mg Documented By: SHASTA Heparin Sodium (Porcine) (Heparin Sodium,Porcine 5,000 Unit/Ml Vial) 3,500 unit 40 unit/kg (3500 unit) IVPUSH PROTOCOL BOLUS PRN; Protocol PRN Reason: 40 unit/kg - Heparin Protocol Last Admin: 10/05/25 04:30 Dose: 3,500 unit Documented By: KEATONARTJuan Heparin Sodium (Porcine) (Heparin Sodium,Porcine 5,000 Unit/Ml Vial) 7,100 unit 80 unit/kg (7100 unit) IVPUSH PROTOCOL BOLUS PRN; Protocol PRN Reason: 80 unit/kg - Heparin Protocol Ceftriaxone Sodium 1 gm/ (Sodium Chloride) 50 mls @ 100 mls/hr IV Q24H [facility] Stop: 10/06/25 07:44 Last Infusion: 10/05/25 09:24 Dose: Infused Documented By: SHASTA Heparin Sodium/Sodium Chloride (Heparin Sodium,Porcine/1/2ns) 25,000 unit in 250 mls @ 0 mls/hr IVCONT .Q0M [facility]; Protocol Last Admin: 10/05/25 11:13 Dose: 10 units/kg/hr, 8.86 mls/hr Documented By: SHASTA Co-signed By: GITA Ipratropium Pinola (Ipratropium Pinola Osorio 0.06 % 15 Ml [place]) 2 spray NOSTRIL-B TID PRN PRN Reason: allergies Magnesium Hydroxide (Milk Of Magnesia 30 Ml Oral.Susp) 30 ml PO DAILY PRN PRN Reason: Constipation Last Admin: 10/03/25 20:07 Dose: 30 ml Documented By: CINDY Meclizine HCl (Meclizine Hcl 25 Mg Tablet) 25 mg PO Q8H PRN PRN Reason: Vertigo Melatonin (Melatonin 3 Mg Tablet) 6 mg PO BEDTIME PRN PRN Reason: Insomnia Metoprolol Tartrate (Metoprolol Tartrate 25 Mg Tablet) 25 mg PO TID [facility]; Protocol Last Admin: 10/05/25 16:11 Dose: 25 mg Documented By: SHASTA Morphine Sulfate (Morphine Sulfate 4 Mg/Ml Cartridge) 2 mg IVPUSH Q4H PRN; Protocol PRN Reason: Pain, Severe (Pain Scale 7-10) Last Admin: 10/03/25 18:36 Dose: 2 mg Documented By: ELVA Ondansetron HCl (Ondansetron Hcl 4 Mg/2 Ml Vial) 4 mg IVPUSH Q8H PRN PRN Reason: Nausea and Vomiting Prednisone (Prednisone 20 Mg Tablet) 40 mg PO DAILY [facility] Last Admin: 10/05/25 08:50 Dose: 40 mg Documented By: SHASTA Sodium Chloride (0.9 % Sodium Chloride Flush 3 Ml Syringe) 3 ml IVFLUSH QSHIFT [facility] Last Admin: 10/05/25 16:12 Dose: Not Given Documented By: SHASTA Non-Admin Reason: IV Running Labs 10/04/25 03:55 10/05/25 03:42 Labs: Laboratory Results - last 24 hr 10/04/25 10/04/25 10/05/25 17:24 20:00 03:42 aPTT Heparin Protocol 124.8 H* D 43.2 L D 50.2 L Anion Gap 12 Estim Creat Clear Calc 101.1 Estimated GFR > 60 Random Glucose 153 H Calcium 7.8 L 10/05/25 10/05/25 10:33 16:40 aPTT Heparin Protocol 80.5 H D 49.2 L D Anion Gap Estim Creat Clear Calc Estimated GFR Random Glucose Calcium Microbiology Microbiology Results: Microbiology 10/03/25 11:40 Gram Stain - Final Thoracentesis Fluid Anaerobic Culture - Preliminary No growth to date. 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 Required 4 units of packed red blood cells on 09/23, 2 units on 09/24. Patient received IV Lasix on 09/26, with chest x ray showing pulmonary edema. Patient persisted with shortness of breath, repeat xray on 09/28 showing Pneumonia. patient initiate on IV antiobiocs, patient previously refused in goint to STR, on 10/01 after trying to use the bathroom due to weakness, accepted in going to rehab Acute hypoxic respiratory failure, likely multifactorial in origin--PNA, anemia hypoxia resolved. PNA, has completed Abx with Rocephain x 7 d and Azithro x 5 dd, wa seen by pulm, CXR 10/04, increased consolodiaton and having chest pain, and tachy, CTA yesterday 10/02 bilateral pleural effusion, and pericardial effusion s/p thoracentesis 10/05 1.05 Non-bloody effusion, sent for cytology and cell count SVTs, PACs --started on metoprolol with good effect Cardiology following Continue tele PE seen on CTA on 10/02, no hypoxia Startedb IV heparin 10/03, and closely monitor H/H, given recent anemia needing multiple transfusion H/H is stable today Transitioned to Eliquis. Discussed with Dr. Pena- eliquis 10mg bid for this weekend, then 5mg bid Pericardial effusion on CT , deemed small and not safe for pericardiocentesis relatively new compare to recent CT, will repeat Echo in near future cardiology advises Prednisone for possible pericarditis likely from chemo agents Anemia, acute on chronic likely from malignancy, s/p 6 units H/H has been stable Mild HFpEF Continue home dose of lasix Monitor for signs of fluid overload stop ivf--being given for pericardial effusion Tachycardia overnight, ECG PAsC not AFIB Monitor, cont metoprolol HTN, chronic continue amlodipine, Lasix, monitor adjust medications accordingly COPD, no exacerbation at this time continue inhalers, keep sat 88 to 92 [id number] lung carcinoma with metastasis currently on chemotherapy 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 -imaging reviewed -continue per [facility] Oncology recommendations -monitor for any signs of worsening shortness of breath, hemoptysis Ambulatory dysfunction Generalized weakness -PT/OT consulted DVT Ppx Lovenox Code Status: DNR/DNI, discussed with patient and sister (HCP) 10/02 Dispo: Will need STR, for being very frail from hospitalization for PEs, anemia active cancer Total time managing care of this patient today: 55 minutes. Quality Stroke Does the patient have a stroke diagnosis?: No VTE Prior VTE?: No VTE Risk Level:: Medical - moderate - high VTE Device Contraindication: Treatment Not Indicated VTE Drug Contraindication: N/A - Med Ordered
[2025-10-05 20:01] VITALS: BP 100/60; PULSE 45
[2025-10-05 20:11] VITALS: BP 117/61; PULSE 70; RESP 17; TEMP 36.6; O2SAT 91
--- NOTE | 2025-10-05 21:12 | ECG_ITS ---
Test Reason : rafi Blood Pressure : */* mmHG Vent. Rate : 75 BPM Atrial Rate : 75 BPM P-R Int : 152 ms QRS Dur : 66 ms QT Int : 432 ms P-R-T Axes : 7 46 71 degrees QTcB Int : 482 ms Normal sinus rhythm Septal infarct , age undetermined Abnormal ECG When compared with ECG of 02-Oct-2025 16:59, Premature ventricular complexes are no longer Present Vent. rate has decreased by 47 bpm Septal infarct is now Present Nonspecific T wave abnormality, improved in Lateral leads Referred By: Christian Ley Electronically Signed By: NICOLAS CAMPOS MD
--- NOTE | 2025-10-05 21:25 | ECG_ITS ---
Test Reason : rafi Blood Pressure : */* mmHG Vent. Rate : 78 BPM Atrial Rate : 78 BPM P-R Int : 110 ms QRS Dur : 66 ms QT Int : 420 ms P-R-T Axes : -21 41 78 degrees QTcB Int : 478 ms Sinus rhythm with short NJ with frequent Premature ventricular complexes and Premature atrial complexes Septal infarct (cited on or before 05-Oct-2025) Abnormal ECG When compared with ECG of 05-Oct-2025 21:12, Premature ventricular complexes are now Present Premature atrial complexes are now Present NJ interval has decreased Referred By: Christian Ley Electronically Signed By: NICOLAS CAMPOS MD
--- NOTE | 2025-10-05 21:28 | ECG_ITS ---
Test Reason : rafi Blood Pressure : */* mmHG Vent. Rate : 46 BPM Atrial Rate : 46 BPM P-R Int : 134 ms QRS Dur : 76 ms QT Int : 470 ms P-R-T Axes : 60 41 59 degrees QTcB Int : 411 ms Sinus bradycardia with occasional Premature ventricular complexes Otherwise normal ECG When compared with ECG of 05-Oct-2025 21:26, Premature atrial complexes are no longer Present Vent. rate has decreased by 32 bpm QT has shortened Referred By: Christian Ley Electronically Signed By: NICOLAS CAMPOS MD
--- NOTE | 2025-10-05 21:54 | PM.EVENT ---
Event Note Date of Service: 10/05/25 Event Note: Contacted to notify pt has developed intermittent events of marked bradycardia, low 40s, associated with PVCs/bigamy. On evaluation, patient lying in bed comfortably. Denied any chest pain, palpitation, shortness of breath or dizziness. Blood pressure has been stable. We will hold metoprolol for now and continue cardiac monitoring. Time Spent With Patient Time: Total time managing care of this patient today ____ minutes.
--- NOTE | 2025-10-05 23:05 | PC.NURSE ---
continues to be asymtpmatic. tele changes still labile, predictable. switches from NSR in 70s to atrial bigeminy then will rafi as low as 40, pacer pads obtained, atropine ordered by
[2025-10-06] VITALS (8 sets, daily range): BP systolic 109–123; BP diastolic 56–69; PULSE 72–98; RESP 17–20; TEMP 35.8–36.6; O2SAT 85–97
[2025-10-06 07:17] LABS: Anion Gap 13 (12-20); Blood Urea Nitrogen 26 mg/dL (9-16); Calcium 8.2 mg/dL (8.4-10.2); Carbon Dioxide 26 mmol/L (22-29); Chloride 103 mmol/L (96-108); Creatinine Clr Calc Pharmacy 94.0; Estimated Glomerular Filt Rate > 60; Potassium 4.2 mmol/L (3.3-5.1); Sodium 138 mmol/L (135-145)
[2025-10-06 07:28] LABS: Troponin-I High Sensitivity 3.7 ng/L (<3.5-35.0)
[2025-10-06] MEDS: Fluticasone/Vilanterol 200/25 BLST.W.DEV 1 PUFF INHALE (07:58)
[2025-10-06 08:15] LABS: MANUAL DIFF FLAG NO
[2025-10-06] MEDS: 0.9 % Sodium Chloride Flush 3 ML SYRINGE IVFLUSH ×2 (08:26→17:33)
[2025-10-06 08:28] LABS: Hematocrit 26.4 % (42.0-52.0); Hemoglobin 8.7 g/dl (14.0-18.0); Imm Gran Abs Auto 0.61 X10*3/uL (0.00-0.03); Imm Gran Pct Auto 3.5 % (0.0-0.4); Lymphocytes Absolute Auto 1.3 X10*3/uL (1.2-4.9); Mean Corpuscular HGB Conc 33.0 g/dl (31.0-36.0); Mean Corpuscular Hemoglobin 31.3 pg (27.0-33.0); Mean Corpuscular Volume 95.0 fL (80.0-98.0); NRBC Abs Auto 0.000 X10*3/uL (0.0-0.012); NRBC Pct Auto 0.0 /100WBC (0.0-0.2); Platelet Count 452 X10*3/uL (160-400); Red Blood Count 2.78 X10*6/uL (4.60-5.80); White Blood Count 17.4 X10*3/uL (4.8-10.8)
[2025-10-06 08:32] LABS: Alanine Aminotransferase 49 U/L (0-40); Albumin Level 2.4 g/dL (3.5-5.0); Alkaline Phosphatase 232 U/L (39-117); Anion Gap 13 (12-20); Aspartate Amino Transferase 97 U/L (5-37); Blood Urea Nitrogen 27 mg/dL (9-16); Calcium 8.1 mg/dL (8.4-10.2); Carbon Dioxide 27 mmol/L (22-29); Chloride 101 mmol/L (96-108); Creatinine Clr Calc Pharmacy 94.0; Estimated Glomerular Filt Rate > 60; Magnesium 2.2 mg/dL (1.6-2.6); Potassium 4.0 mmol/L (3.3-5.1); Sodium 137 mmol/L (135-145); Total Protein 5.5 g/dL (6.5-8.0)
--- NOTE | 2025-10-06 10:18 | P.PNHO-ONC_ITS ---
Medical Summary - Medical Summary Date of Service: 10/06/25 Primary Care Provider: NELY Rich Medical Summary: He is hospitalized for acute PE and anemia in the context of treatment with chemotherapy for lung cancer. Relays Draftsperson Utilized?: No - Azeri Speaking Interval History Interval history: Hari Page is a 70 year old male with advanced poorly differentiated lung cancer who has been receiving chemotherapy, admitted on 09/23/2025 for progressive dyspnea. Evaluation revealed hemoglobin of 5.5 gram/dL as well as elevated BNP. He received several units blood transfusion. Chest x-ray demonstrated known pulmonary mass in the right upper lobe and patchy airspace disease in the right lower lung suspicious for pneumonia. Patient was being treated for acute hypoxic respiratory failure secondary to pneumonia and severe anemia. He was started on Rocephin and azithromycin. Patient developed chest pain since last night, ECG showed new atrial fibrillation with RVR. CT angiogram performed 10/02/2025 showed acute pulmonary emboli, subsegmental branches in the left lower lobe. Malignancy in the right upper lobe. Bilateral pleural effusions, xoxnxlmy-up-kmyom volume. Pericardial effusion, moderate volume and emphysema. Echocardiogram revealed moderate circumferential pericardial effusion more prominent near the right-sided chambers. Patient had thoracentesis yesterday and feels a lot better today. He has been started on prednisone. He is on unfractionated heparin for pulmonary embolism. Review of Systems - Constitutional Reports anorexia - Cardiovascular Reports chest pain, Reports fast heart rate - Respiratory Reports dyspnea on exertion - Gastrointestinal Reports nausea - Neurologic Reports system reviewed and no additional complaints, except as documented, Reports hearing normal, Reports weakness, Denies abnormal gait PMFSH Medical History: Medical History (Last Reviewed 10/02/25 @ 16:58 by Carlton Reese MD) Alcohol use disorder Anemia in chronic illness Cognitive disorder COPD (chronic obstructive pulmonary disease) Edema Hypertension Lung cancer Lung mass Lymphadenopathy Nicotine dependence, cigarettes, uncomplicated Pancreatic mass Pressure ulcer Rhabdomyolysis SVT (supraventricular tachycardia) Swelling of right hand Family History: Family History (Last Reviewed 10/02/25 @ 16:58 by Carlton Reese MD) Father No problems noted. Mother Lung cancer Family/Other Lung cancer Throat cancer Surgical History: Surgical History (Last Reviewed 10/02/25 @ 16:58 by Carlton Reese MD) History of colonoscopy History of lumbar laminectomy Social History: Social History (Last Reviewed 10/02/25 @ 16:58 by Carlton Reese MD) Living Situation History: Household Members: None Household Members Other:: pt lives alone Housing: Apartment Are you a primary progressive care manager to a significant other at home: No Do you presently have visiting nurse or other home services: Yes Do you presently have visiting nurse or other home services comment: VNA and PT Tobacco History: Patient Tobacco Use Status: Current everyday Tobacco Tobacco use type: Cigarette Cigarette Packs Per Day: 1 Years Smoked: (onset 16yo, 1-1.5ppd x 53yrs, 60+PYH) e-Cigarette/Vaping Use: Currently Using Second Hand Smoke Exposure: No Advance Directives: Advance Directives Date on File: 12/14/22 Occupation Assessmet: service: No 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 Sex/Gender Assessment: Gender identity: Male Home Medications and Allergies Current Medications: Current Medications Acetaminophen (Acetaminophen 325 Mg Tablet) 650 mg PO Q6H PRN PRN Reason: Pain, Mild 1-3,fever,headache Last Admin: 09/28/25 07:53 Dose: 650 mg Amlodipine Besylate (Amlodipine Besylate 10 Mg Tablet) 10 mg PO DAILY [facility]; Protocol Last Admin: 10/06/25 08:26 Dose: 10 mg Apixaban (Apixaban 5 Mg Tablet) 10 mg PO BID [facility] Stop: 10/06/25 23:59 Last Admin: 10/06/25 08:26 Dose: 10 mg Apixaban (Apixaban 5 Mg Tablet) 5 mg PO BID [facility] Atropine Sulfate (Atropine Sulfate 1 Mg/10 Ml Syringe) 1 mg IVPUSH ONCE PRN PRN Reason: Symptomatic bradycardia Calcium Carbonate (Calcium Carbonate 750 Mg Tab.Chew) 750 mg PO Q4H PRN PRN Reason: Heartburn Fluticasone/Vilanterol (Fluticasone/Vilanterol 200/25 Blst.W.Dev) 1 puff INHALE RDAILY [facility] Last Admin: 10/06/25 07:58 Dose: 1 puff Folic Acid (Folic Acid 1 Mg Tablet) 1 mg PO DAILY [facility] Last Admin: 10/06/25 08:26 Dose: 1 mg Furosemide (Furosemide 20 Mg Tablet) 20 mg PO DAILY [facility]; Protocol Last Admin: 10/06/25 08:26 Dose: 20 mg Ipratropium [place] (Ipratropium [place] Osorio 0.06 % 15 Ml [place]) 2 spray NOSTRIL-B TID PRN PRN Reason: allergies Magnesium Hydroxide (Milk Of Magnesia 30 Ml Oral.Susp) 30 ml PO DAILY PRN PRN Reason: Constipation Last Admin: 10/03/25 20:07 Dose: 30 ml Meclizine HCl (Meclizine Hcl 25 Mg Tablet) 25 mg PO Q8H PRN PRN Reason: Vertigo Melatonin (Melatonin 3 Mg Tablet) 6 mg PO BEDTIME PRN PRN Reason: Insomnia Metoprolol Tartrate (Metoprolol Tartrate 25 Mg Tablet) 25 mg PO TID [facility]; Protocol On Hold: 10/05/25 21:46 Last Admin: 10/05/25 22:52 Dose: Not Given Morphine Sulfate (Morphine Sulfate 4 Mg/Ml Cartridge) 2 mg IVPUSH Q4H PRN; Protocol PRN Reason: Pain, Severe (Pain Scale 7-10) Last Admin: 10/03/25 18:36 Dose: 2 mg Ondansetron HCl (Ondansetron Hcl 4 Mg/2 Ml Vial) 4 mg IVPUSH Q8H PRN PRN Reason: Nausea and Vomiting Prednisone (Prednisone 20 Mg Tablet) 40 mg PO DAILY [facility] Last Admin: 10/06/25 08:25 Dose: 40 mg Sodium Chloride (0.9 % Sodium Chloride Flush 3 Ml Syringe) 3 [facility] Last Admin: 10/06/25 08:26 Dose: 3 ml Home Medications ?Medication ?Instructions ?Recorded ?Confirmed ?Type dexamethasone 4 mg tablet See Rx Instructions .Route .COMPLEX 08/27/25 09/23/25 History ipratropium bromide 42 mcg (0.06 2 spray intranasal TID PRN 08/27/2511/17 History %) nasal spray allergies furosemide 20 mg tablet (Lasix) 20 mg PO DAILY Weight gain 09/23/2511/17 History Allergies Allergy/AdvReac Type Severity Reaction Status Date / Time No Known Allergies Allergy Verified 09/23/25 09:19 Exam Vital signs: Vital Signs Temp 97.0 F 10/06/25 07:29 Pulse 84 10/06/25 07:59 Resp 18 10/06/25 07:59 BP 111/56 L 10/06/25 07:29 Pulse Ox 97 10/06/25 07:29 O2 Del Method Nasal Cannula 10/06/25 07:29 O2 Flow Rate 1 10/06/25 07:29 Intake & Output 10/05/25 10/06/25 10/06/25 18:59 06:59 18:59 Intake Total 498.849 / 498.849 Output Total 500 / 1300 800 / 1300 Balance -1.151 / -801.151 -800 / -801.151 Urine Output (Average ml/kg/hr) 0.47 0.75 Intake: Intake, Oral Amount 318 / 318 Intake, IV Amount 180.849 / 180.849 cefTRIAXone sodium 1 gm In 0.9 50 / 50 % Sodium Chloride 50 ml @ 100 mls/hr IV Q24H [facility] Rx#: [id number] Heparin Sodium,Porcine/1/2NS 25 130.849 / 130.849 ,000 unit In 250 ml @ Per Protocol IVCONT .Q0M [facility] Rx#: [id number] Output: Output, Urine Amount 500 / 1300 800 / 1300 Other: Breakfast % Eaten 100% Lunch % Eaten 100% Number of Bowel Movements 1 Urine purewick Urine Color Yellow Stool Incontinent Stool Color Brown Stool Consistency Loose Weight 88.6 kg BMI result Body Mass Index 25.8 - Constitutional Present: no acute distress, mild distress, moderate distress - Routine HEENT Exam Head: Present: normal inspection ENT: Present: mucous membranes moist - Routine Neck Exam Present: full ROM - Routine Respiratory Exam Present: accessory muscle use, decreased breath sounds - Routine Cardiovascular Exam Cardiovascular: Present: RRR, S1, S2, tachycardia - Routine Abdominal Exam Present: diminished bowel sounds - Routine Skin Exam Present: intact Data - Labs CBC & Chem 7: 10/06/25 08:04 10/06/25 08:04 - Imaging Radiologist's impression: ITS Impressions Chest X-Ray 09/23/25 11:01 IMPRESSION: 1. COPD. 2. Known pulmonary mass in the right upper lobe is partially obscured by a chest lead. 3. Patchy airspace disease in the right lower lung, suspicious for pneumonia. 4. Small layering effusions bilaterally with associated left base atelectasis. Electronically signed by: Paolo Quesada MD 09/23/2025 11:14 AM [facility] Chest X-Ray 09/27/25 09:41 IMPRESSION: Worsening pulmonary edema. Pulmonary nodules, right hemithorax. Right-sided pleural effusion, small to moderate volume. Chronic interstitial lung disease. Electronically signed by: Trent Mota MD 09/27/2025 09:53 AM EST RP Chest X-Ray 10/02/25 08:34 IMPRESSION: Right lung consolidation, increased from previous. Left basilar hazy opacities.. Possible small bilateral pleural effusions. Recommend follow-up to resolution.. Electronically signed by: Loyd Louise MD 10/02/2025 08:48 AM EST RP Chest CTA 10/02/25 14:26 IMPRESSION: Acute pulmonary artery emboli, subsegmental branches to the left lower lung lobe. Positive exam. No right ventricular strain sign. Concerning malignancy, right upper lung lobe. Bilateral pleural effusions, moderate to large volume. Pericardial effusion, moderate volume. Emphysema. Coronary artery disease and atherosclerosis disease.. Fleischner guidelines were followed. Electronically signed by: Trent Mota MD 10/02/2025 03:23 PM EST RP Chest X-Ray 10/03/25 11:46 IMPRESSION: 1. Small left pleural effusion. No pneumothorax. 2. 2.3 cm right upper lobe mass without change. 3. Opacification of the left lung base may represent atelectasis or pneumonia. Electronically signed by: Wander Toscano MD 10/03/2025 12:02 PM EST RP Thoracentesis Ultrasound 10/03/25 12:14 IMPRESSION: Ultrasound-guided bilateral thoracentesis. Electronically signed by: Tiffany Granado MD 10/03/2025 04:02 PM EST RP Thoracentesis Ultrasound 10/03/25 12:14 IMPRESSION: Ultrasound-guided bilateral thoracentesis. Electronically signed by: Tiffany Granado MD 10/03/2025 04:02 PM EST RP Chest X-Ray 10/03/25 12:18 IMPRESSION: 1. Small left pleural effusion. No pneumothorax. 2. 2.3 cm right upper lobe mass as seen previously. 3. Airspace opacity at the left lung base may represent atelectasis or pneumonia. Electronically signed by: Wander Toscano MD 10/03/2025 12:35 PM EST RP Assessment and Plan Patient Active problem list reviewed?: Yes (1) Pulmonary embolism Status: Acute Assessment and plan: He is doing well nd has improved. Respiration is comfortable. No bleeding is noted. The heparin has been stopped and spixaban begun. - Time Spent With Patient Time Spent with Patient (in minutes): 15
--- NOTE | 2025-10-06 13:48 | HO.PM.IMPN ---
Subjective Subjective Date of Service: 10/06/25 Interval History: Events of overnight noted. No bradycardia since DC of beta sloane Review of Systems Denies chest pain Denies shortness of breath Denies nausea vomiting diarrhea Denies fever chills Physical Exam Vital Signs: Vital Signs: Last Vital Signs Temp 97.6 F 10/06/25 13:17 Pulse 86 10/06/25 13:17 Resp 18 10/06/25 13:17 BP 123/56 L 10/06/25 13:17 Pulse Ox 96 10/06/25 13:17 O2 Del Method Room Air 10/06/25 13:17 O2 Flow Rate 1 10/06/25 07:29 Oxygen Flow Rate 4 10/02/25 17:10 BMI result Body Mass Index 25.8 Const: Other: Awake alert no acute distress Resp: Other: Diminished throughout with minimal expiratory wheeze Cardio: Other: No S4; positive S1-S2; no S3 murmurs rubs or gallops GI: Other: Soft nontender nondistended normoactive bowel sounds Extrem: Other: No edema bilaterally Objective Data Active Medications Acetaminophen (Acetaminophen 325 Mg Tablet) 650 mg PO Q6H PRN PRN Reason: Pain, Mild 1-3,fever,headache Last Admin: 09/28/25 07:53 Dose: 650 mg Documented By: WILLIE Amlodipine Besylate (Amlodipine Besylate 10 Mg Tablet) 10 mg PO DAILY [facility]; Protocol Last Admin: 10/06/25 08:26 Dose: 10 mg Documented By: PK Apixaban (Apixaban 5 Mg Tablet) 10 mg PO BID [facility] Stop: 10/06/25 23:59 Last Admin: 10/06/25 08:26 Dose: 10 mg Documented By: PK Apixaban (Apixaban 5 Mg Tablet) 5 mg PO BID [facility] Atropine Sulfate (Atropine Sulfate 1 Mg/10 Ml Syringe) 1 mg IVPUSH ONCE PRN PRN Reason: Symptomatic bradycardia Calcium Carbonate (Calcium Carbonate 750 Mg Tab.Chew) 750 mg PO Q4H PRN PRN Reason: Heartburn Fluticasone/Vilanterol (Fluticasone/Vilanterol 200/25 Blst.W.Dev) 1 puff INHALE RDAILY [facility] Last Admin: 10/06/25 07:58 Dose: 1 puff Documented By: HO.BLASCL Folic Acid (Folic Acid 1 Mg Tablet) 1 mg PO DAILY [facility] Last Admin: 10/06/25 08:26 Dose: 1 mg Documented By: PK Furosemide (Furosemide 20 Mg Tablet) 20 mg PO DAILY [facility]; Protocol Last Admin: 10/06/25 08:26 Dose: 20 mg Documented By: PK Ipratropium [place] (Ipratropium [place] Osorio 0.06 % 15 Ml [place]) 2 spray NOSTRIL-B TID PRN PRN Reason: allergies Magnesium Hydroxide (Milk Of Magnesia 30 Ml Oral.Susp) 30 ml PO DAILY PRN PRN Reason: Constipation Last Admin: 10/03/25 20:07 Dose: 30 ml Documented By: CINDY Meclizine HCl (Meclizine Hcl 25 Mg Tablet) 25 mg PO Q8H PRN PRN Reason: Vertigo Melatonin (Melatonin 3 Mg Tablet) 6 mg PO BEDTIME PRN PRN Reason: Insomnia Metoprolol Tartrate (Metoprolol Tartrate 25 Mg Tablet) 25 mg PO TID [facility]; Protocol On Hold: 10/05/25 21:46 Last Admin: 10/05/25 22:52 Dose: Not Given Documented By: VERNA Non-Admin Reason: Physician Held Med Morphine Sulfate (Morphine Sulfate 4 Mg/Ml Cartridge) 2 mg IVPUSH Q4H PRN; Protocol PRN Reason: Pain, Severe (Pain Scale 7-10) Last Admin: 10/03/25 18:36 Dose: 2 mg Documented By: ELVA Ondansetron HCl (Ondansetron Hcl 4 Mg/2 Ml Vial) 4 mg IVPUSH Q8H PRN PRN Reason: Nausea and Vomiting Prednisone (Prednisone 20 Mg Tablet) 40 mg PO DAILY [facility] Last Admin: 10/06/25 08:25 Dose: 40 mg Documented By: PK Sodium Chloride (0.9 % Sodium Chloride Flush 3 Ml Syringe) [facility] Last Admin: 10/06/25 08:26 Dose: 3 ml Documented By: PK Labs 10/06/25 08:04 10/06/25 08:04 Labs: Laboratory Results - last 24 hr 10/05/25 10/06/25 10/06/25 16:40 06:28 08:04 MCV 95.0 MCH 31.3 MCHC 33.0 RDW 19.2 H Plt Count 452 H D MPV 9.7 Immature Gran % (Auto) 3.5 H Neut % (Auto) 83.3 H Lymph % (Auto) 7.2 L [place] % (Auto) 5.9 Eos % (Auto) 0.0 Baso % (Auto) 0.1 Lymph # (Auto) 1.3 [place] # (Auto) 1.0 Eos # (Auto) 0.0 Baso # (Auto) 0.0 Abs Immat Gran (auto) 0.61 H Absolute Neuts (auto) 14.5 H Absolute Nucleated RBC 0.000 Nucleated RBC % (auto) 0.0 aPTT Heparin Protocol 49.2 L D Anion Gap 13 13 Estim Creat Clear Calc 94.0 94.0 Estimated GFR > 60 > 60 Random Glucose 154 H 125 H Calcium 8.2 L 8.1 L Magnesium 2.2 Total Bilirubin 0.1 AST 97 H ALT 49 H Alkaline Phosphatase 232 H Troponin I High Sens 3.7 Total Protein 5.5 L Albumin 2.4 L Microbiology Microbiology Results: Microbiology 10/03/25 11:40 Gram Stain - Final Thoracentesis Fluid Anaerobic Culture - Preliminary No growth to date. Body Fluid Culture - Final No growth after 2 days Assessment and Plan (1) Lung mass: Status: Acute (2) Pulmonary embolism: Status: Acute Plan Assessment: 70 year old man with lung cancer with mets, chronic anemia admitted with symptomatic anemia and mild CHF. Required 4 units of packed red blood cells on 09/23, 2 units on 09/24. Patient received IV Lasix on 09/26, with chest x ray showing pulmonary edema. Patient persisted with shortness of breath, repeat xray on 09/28 showing Pneumonia. patient initiate on IV antiobiocs, patient previously refused in goint to STR, on 10/01 after trying to use the bathroom due to weakness, accepted in going to rehab 1. Right lower lobe pneumonia -complete a course of ceftriaxone azithromycin -titrate O2 2. Bradycardia -resolved with DC of beta sloane 3. Pulmonary emboli -hemoglobin stable -started Eliquis 10 mg b.i.d. to complete a 14 day course -await pathology of pleural fluid before starting prednisone 4.Anemia, acute on chronic -stable after transfusion -follow clinically 5.HFpEF -stable and well compensated 6. 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 -imaging reviewed -continue per [facility] Oncology recommendations -monitor for any signs of worsening shortness of breath, hemoptysis Ambulatory dysfunction Generalized weakness -PT/OT consulted DVT Ppx Lovenox Code Status: DNR/DNI, discussed with patient and sister (HCP) 10/02 Dispo: Will need STR, for being very frail from hospitalization for PEs, anemia active cancer Quality Stroke Does the patient have a stroke diagnosis?: No VTE Prior VTE?: No VTE Risk Level:: Medical - moderate - high VTE Device Contraindication: Treatment Not Indicated VTE Drug Contraindication: N/A - Med Ordered
[2025-10-07] VITALS (9 sets, daily range): BP systolic 107–138; BP diastolic 57–68; PULSE 46–81; RESP 16–20; TEMP 36.2–36.8; O2SAT 93–98
[2025-10-07 06:44] LABS: Hematocrit 24.0 % (42.0-52.0); Hemoglobin 7.8 g/dl (14.0-18.0); Mean Corpuscular HGB Conc 32.5 g/dl (31.0-36.0); Mean Corpuscular Hemoglobin 31.2 pg (27.0-33.0); Mean Corpuscular Volume 96.0 fL (80.0-98.0); NRBC Abs Auto 0.110 X10*3/uL (0.0-0.012); NRBC Pct Auto 0.5 /100WBC (0.0-0.2); Platelet Count 435 X10*3/uL (160-400); Red Blood Count 2.50 X10*6/uL (4.60-5.80); White Blood Count 21.6 X10*3/uL (4.8-10.8)
[2025-10-07 07:01] LABS: Alanine Aminotransferase 63 U/L (0-40); Albumin Level 2.2 g/dL (3.5-5.0); Alkaline Phosphatase 191 U/L (39-117); Anion Gap 9 (12-20); Aspartate Amino Transferase 102 U/L (5-37); Blood Urea Nitrogen 30 mg/dL (9-16); Calcium 8.0 mg/dL (8.4-10.2); Carbon Dioxide 32 mmol/L (22-29); Chloride 102 mmol/L (96-108); Creatinine Clr Calc Pharmacy 91.8; Estimated Glomerular Filt Rate > 60; Potassium 4.0 mmol/L (3.3-5.1); Sodium 139 mmol/L (135-145); Total Protein 5.0 g/dL (6.5-8.0)
[2025-10-07 07:10] LABS: Band Neutrophils Percent 3 % (3-5); Lymphocytes Absolute Manual 1.5 X10*3/uL (1.2-4.9); Lymphocytes Percent Manual 7 % (20-40); Metamyelocytes Absolute 0.4 X10*3/uL; Metamyelocytes Percent 2 %; Monocytes Absolute Manual 0.9 X10*3/uL (0.1-1.2); Monocytes Percent Manual 4 % (2-11); Neutrophils Absolute Manual 18.8 X10*3/uL (2.0-8.3); Neutrophils Percent Manual 84 % (45-73)
[2025-10-07 07:13] LABS: Basophilic Stippling 1+ (0-2) /OIF; Burr Cells 1+ (0-2) /OIF; Large Platelet PRESENT; Macrocytosis 1+ (5-14) /OIF; Ovalocytes 1+ (5-14) /OIF; Polychromasia 1+ (0-2) /OIF; RBC Morphology NOTED
[2025-10-07] MEDS: Fluticasone/Vilanterol 200/25 BLST.W.DEV 1 PUFF INHALE (07:45)
[2025-10-07] MEDS: 0.9 % Sodium Chloride Flush 3 ML SYRINGE IVFLUSH ×2 (08:44→15:55)
--- NOTE | 2025-10-07 10:51 | MHC.CM.PN ---
Per ROUNDS, MD anticipates Patient to be medically cleared soon; SNEHA has asked [facility] to initiate insurance auth. CM will follow.
--- NOTE | 2025-10-07 12:09 | MHC.CLN ---
F/U PO INTAKE 75-100% DIET RX: REGULAR RECEIVING ENSURE TID TO PROMOTE WOUND HEALING SUPP PROVIDES 1050KCALS, 60G PROTEIN MONITOR PO INTAKE AND ENCOURAGE SUPPLEMENTS
--- NOTE | 2025-10-07 14:20 | HO.WOUND ---
Wound Consult: Follow up 70yr old male? admitted to [facility] on 09/23/25 - See progress notes and H&P for detailed history.? Wound consult placed for follow up for Sacrum, Bilateral Heels and Left elbow.? Patient agreeable to assessment and photo documentation.? 09/27/25 Sacrum / Buttock Etiology: MASD with Friction ?? - intact tissue - some areas of dry tissue remain over all healed. Barrier cream and foam dressing still in use. Waffle cushion applied to recliner chair to aid in off loading. Left Elbow - stable scab abrasion. BIBIANA - stable scab may leave BUTTON SEWER at patient request. Right Heel - remains with observable are of intact Red blanchable tissue - continue to off loaded with foam dressing and pillows. 10/02/25 10/07/25 - BOth sites remains stable and unchanged. No open tissue noted. Topical treatment to remain with off loading and foam dressing application. Left Heel superior site Etiology: superior site Stage 1 Pressure Injury resolving Measurements: 0.5cm x 0.5cm x 0cm Wound Bed: intact red hyperpigmented nonblanchbale tissue Drainage / Odor: None Edges: ? Attached So wound: ? No Induration, Fluctuance or Warmth noted Pain: denies Goals of Treatment: ? Off load - foam applied and pillows in use Left Heel inferior site Etiology: Inferior site Deep Tissue Injury Measurements: 0.6cm x 0.6cm x 0cm Wound Bed: intact dark red maroon nonblanchbale tissue Drainage / Odor: None Edges: ? Attached So wound: ? No Induration, Fluctuance or Warmth noted Pain: denies Goals of Treatment: ? Off load - foam applied and pillows in use Right arm skin tear BUTTON SEWER and stable scab noted - patient requests no dressing at this time. Given stable scab may continue to leave BIBIANA at this time. Recommendations: 1. Turn and Reposition every 2 hours and as needed for patient comfort.? Use pillows or wedges to support off loading positions. 2. Off Load all bony prominences with use of pillows and heel boots if needed.? Apply Preventative foams where needed. ? 3. Monitor for incontinence and moisture control, use barrier creams when needed for prevention and treatment. 4. Provide adequate and supplemental nutrition.? 5. Continue low air loss mattress. 6. When applicable maintain blood glucose levels per Providers order. Sacrum / Buttock and bilateral Heels - Off Load Pressure with Q2 hr turns and use of pillows - Routine cleansing.? Apply skin prep allow to dry.? Cover with foam dressing to aid in off loading and protection from friction. Change every 3 days and PRN. Re-consult wound care Nurse for wound deterioration or wound changes.
--- NOTE | 2025-10-07 16:05 | HO.PM.IMPN ---
Subjective Subjective Date of Service: 10/07/25 Interval History: Breathing somewhat better. Now without an O2 requirement Review of Systems Denies chest pain Denies shortness of breath Denies nausea vomiting diarrhea Denies fever chills Physical Exam Vital Signs: Vital Signs: Last Vital Signs Temp 98.3 F 10/07/25 15:19 Pulse 81 10/07/25 15:19 Resp 18 10/07/25 15:19 BP 138/63 10/07/25 15:19 Pulse Ox 95 10/07/25 15:19 O2 Del Method Room Air 10/07/25 15:19 O2 Flow Rate 1 10/07/25 03:37 Oxygen Flow Rate 4 10/02/25 17:10 BMI result Body Mass Index 25.8 Const: Other: Awake alert no acute distress Resp: Other: Diminished throughout with minimal expiratory wheeze Cardio: Other: No S4; positive S1-S2; no S3 murmurs rubs or gallops GI: Other: Soft nontender nondistended normoactive bowel sounds Extrem: Other: No edema bilaterally Objective Data Active Medications Acetaminophen (Acetaminophen 325 Mg Tablet) 650 mg PO Q6H PRN PRN Reason: Pain, Mild 1-3,fever,headache Last Admin: 09/28/25 07:53 Dose: 650 mg Documented By: WILLIE Amlodipine Besylate (Amlodipine Besylate 10 Mg Tablet) 10 mg PO DAILY [facility]; Protocol Last Admin: 10/07/25 08:44 Dose: 10 mg Documented By: ROBE Apixaban (Apixaban 5 Mg Tablet) 5 mg PO BID [facility] Last Admin: 10/07/25 08:44 Dose: 5 mg Documented By: ROBE Atropine Sulfate (Atropine Sulfate 1 Mg/10 Ml Syringe) 1 mg IVPUSH ONCE PRN PRN Reason: Symptomatic bradycardia Calcium Carbonate (Calcium Carbonate 750 Mg Tab.Chew) 750 mg PO Q4H PRN PRN Reason: Heartburn Fluticasone/Vilanterol (Fluticasone/Vilanterol 200/25 Blst.W.Dev) 1 puff INHALE RDAILY [facility] Last Admin: 10/07/25 07:45 Dose: 1 puff Documented By: EMELYN Folic Acid (Folic Acid 1 Mg Tablet) 1 mg PO DAILY [facility] Last Admin: 10/07/25 08:44 Dose: 1 mg Documented By: ROBE Furosemide (Furosemide 20 Mg Tablet) 20 mg PO DAILY [facility]; Protocol Last Admin: 10/07/25 08:44 Dose: 20 mg Documented By: ROBE Ipratropium [place] (Ipratropium [place] Osorio 0.06 % 15 Ml [place]) 2 spray NOSTRIL-B TID PRN PRN Reason: allergies Magnesium Hydroxide (Milk Of Magnesia 30 Ml Oral.Susp) 30 ml PO DAILY PRN PRN Reason: Constipation Last Admin: 10/03/25 20:07 Dose: 30 ml Documented By: CINDY Meclizine HCl (Meclizine Hcl 25 Mg Tablet) 25 mg PO Q8H PRN PRN Reason: Vertigo Melatonin (Melatonin 3 Mg Tablet) 6 mg PO BEDTIME PRN PRN Reason: Insomnia Metoprolol Tartrate (Metoprolol Tartrate 25 Mg Tablet) 25 mg PO TID [facility]; Protocol On Hold: 10/05/25 21:46 Last Admin: 10/05/25 22:52 Dose: Not Given Documented By: VERNA Non-Admin Reason: Physician Held Med Ondansetron HCl (Ondansetron Hcl 4 Mg/2 Ml Vial) 4 mg IVPUSH Q8H PRN PRN Reason: Nausea and Vomiting Prednisone (Prednisone 20 Mg Tablet) 40 mg PO DAILY [facility] Last Admin: 10/07/25 08:44 Dose: 40 mg Documented By: ROBE Sodium Chloride (0.9 % Sodium Chloride Flush 3 Ml Syringe) 3 ml IVFLUSH QSHIFT [facility] Last Admin: 10/07/25 15:55 Dose: 3 ml Documented By: ROBE Labs 10/07/25 06:28 10/07/25 06:28 Labs: Laboratory Results - last 24 hr 10/07/25 06:28 MCV 96.0 MCH 31.2 MCHC 32.5 RDW 19.7 H Plt Count 435 H MPV 9.5 Immature Gran % (Auto) Cancelled Neut % (Auto) Cancelled Lymph % (Auto) Cancelled [place] % (Auto) Cancelled Eos % (Auto) Cancelled Baso % (Auto) Cancelled Lymph # (Auto) Cancelled [place] # (Auto) Cancelled Eos # (Auto) Cancelled Baso # (Auto) Cancelled Abs Immat Gran (auto) Cancelled Absolute Neuts (auto) Cancelled Absolute Nucleated RBC 0.110 H Nucleated RBC % (auto) 0.5 H Neutrophils % (Manual) 84 H Band Neutrophils % 3 Lymphocytes % (Manual) 7 L Monocytes % (Manual) 4 Metamyelocytes % 2 Abs Neuts (Manual) 18.8 H Lymphocytes # (Manual) 1.5 Monocytes # (Manual) 0.9 Metamyelocytes # 0.4 Platelet Estimate SLIGHTLY INCREASED Large Platelets PRESENT Plt Morphology Comment NOTED RBC Morphology NOTED Polychromasia 1+ (0-2) Basophilic Stippling 1+ (0-2) Macrocytosis 1+ (5-14) Pappenheimer Bodies PRESENT Ovalocytes 1+ (5-14) [place] Cells 1+ (0-2) Anion Gap 9 L Estim Creat Clear Calc 91.8 Estimated GFR > 60 Fasting Glucose 87 Calcium 8.0 L Total Bilirubin 0.2 AST 102 H ALT 63 H Alkaline Phosphatase 191 H Total Protein 5.0 L Albumin 2.2 L Microbiology Microbiology Results: Microbiology 10/03/25 11:40 Gram Stain - Final Thoracentesis Fluid Anaerobic Culture - Preliminary No growth to date. Body Fluid Culture - Final No growth after 2 days Assessment and Plan (1) 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: Status: Acute (2) CKD stage 3a, GFR 45-59 ml/min: Status: Acute Plan Assessment: 70 year old man with lung cancer with mets, chronic anemia admitted with symptomatic anemia and mild CHF. Required 4 units of packed red blood cells on 09/23, 2 units on 09/24. Patient received IV Lasix on 09/26, with chest x ray showing pulmonary edema. Patient persisted with shortness of breath, repeat xray on 09/28 showing Pneumonia. patient initiate on IV antiobiocs, patient previously refused in goint to STR, on 10/01 after trying to use the bathroom due to weakness, accepted in going to rehab 1. Right lower lobe pneumonia -complete a course of ceftriaxone azithromycin -titrate O2 2. Bradycardia -resolved with DC of beta sloane 3. Pulmonary emboli -hemoglobin stable -started Eliquis 10 mg b.i.d. to complete a 14 day course -await pathology of pleural fluid before starting prednisone 4.Anemia, acute on chronic -stable after transfusion -follow clinically 5.HFpEF -stable and well compensated 6. Hypertension -acceptable control on current therapies -adjust as indicated DVT Ppx Lovenox Code Status: DNR/DNI, discussed with patient and sister (HCP) 10/02 Dispo: Will need STR, for being very frail from hospitalization for PEs, anemia active cancer Quality Stroke Does the patient have a stroke diagnosis?: No VTE Prior VTE?: No VTE Risk Level:: Medical - moderate - high VTE Device Contraindication: Treatment Not Indicated VTE Drug Contraindication: N/A - Med Ordered
--- NOTE | 2025-10-07 16:12 | PM.DS ---
DS: Providers Provider Date of admission: 09/23/25 13:29 <Christian Ley DO - Last Filed: 10/07/25 16:14> Date of discharge: 10/08/25 <Osiel Schafer MD - Last Filed: 10/08/25 10:50> Primary care physician: NELY Rich <Christian Ley DO - Last Filed: 10/07/25 16:14> Consults: 09/24/25 10:22 Consult to Wound Care Routine Consulting Provider: [facility] Reason for consultation: skin tear right forearm 09/26/25 10:52 Consult to Pulmonology Routine Consulting Provider: [facility] Reason for consultation: hypoxia, lung cancer Has provider been notified: No 09/26/25 15:59 Consult to Wound Care Routine Consulting Provider: [facility] Reason for consultation: ?DTI to bilateral heels, left elbow, ?MASD to buttocks/scratches 10/02/25 08:57 Consult to Cardiology Routine Consulting Provider: [facility] Reason for consultation: new afib 10/02/25 15:43 Consult to Hematology / Oncology Routine Consulting Provider: [facility] [place] Reason for consultation: Acute PE, underlying lung cancer 10/02/25 17:12 Consult to Vascular Surgery Routine Consulting Provider: [facility] Reason for consultation: PE, consider for IVC filter 10/06/25 03:20 Consult to Wound Care Routine Consulting Provider: [facility] Reason for consultation: f/u on heels, coccyx/buttocks, right forearm <Christian Ley DO - Last Filed: 10/07/25 16:14> DS: Diagnosis Discharge Diagnosis (1) 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: Status: Acute <Christian Ley DO - Last Filed: 10/07/25 16:14> (2) CKD stage 3a, GFR 45-59 ml/min: Status: Acute <Christian Ley DO - Last Filed: 10/07/25 16:14> DS: Summary Hospital Course Hospital Course: 70 year old male with PMH Chronic Anemia and Lung Ca receiving Chemo therapy presenting to the ED with concerns for Dysnea on excertion. Patient reported dyspnea with short distances, symptoms became progressively worseover the last four days relieved with rest. Reports associated symptoms of weakness, dizziness, fast heart beating. He had been using his inhalors with no relief. He denies fever, chills, chest pain. In the ED HH was noted to be 5.5 / 16, transfused with 1 Unit PRBC, Occult stool neg, Pro BNP 703.5, EKG concerning for Afib patient denies history. CXR remarkable for known pulmonary mass in the right upper lobe, Patchy airspace disease in the right lower lung, suspicious for pneumonia. Hospital course: Assessment: 70 year old man with lung cancer with mets, chronic anemia admitted with symptomatic anemia and mild CHF. Required 4 units of packed red blood cells on 09/23, 2 units on 09/24. Patient received IV Lasix on 09/26, with chest x ray showing pulmonary edema. Patient persisted with shortness of breath, repeat xray on 09/28 showing Pneumonia. patient initiate on IV antiobiocs, patient previously refused in goint to STR, on 10/01 after trying to use the bathroom due to weakness, accepted in going to rehab Acute hypoxic respiratory failure, likely multifactorial in origin--PNA, anemia and pulmonary embolism hypoxia resolved. PNA, has completed Abx with Rocephain x 7 d and Azithro x 5 d wa seen by pulm, CXR 10/04, increased consolodiaton and having chest pain, and tachy, CTA on 10/02 bilateral pleural effusion, and pericardial effusion s/p thoracentesis 10/05 1.05 Non-bloody effusion, sent for cytology and no malignant cells Tachcardia, initially thought to have AFIB however cardiology concluded that it was PAC , SVTs, as treated with Adenosine with good effect and then started on metoprolol PE seen on CTA on 10/02, no hypoxia Startedb IV heparin 10/03, and closely monitor H/H, given recent anemia needing multiple transfusion H/H has been stable Transitioned to Eliquis, presently on 5 mg po bid Pericardial effusion on CT , deemed small and not safe for pericardiocentesis relatively new compare to recent CT, will repeat Echo in near future cardiology advises Prednisone for possible pericarditis likely from chemo agents Anemia, acute on chronic likely from malignancy, s/p 6 units H/H has been stable Mild HFpEF Continue home dose of lasix HTN, chronic continue amlodipine, metoprolol, Lasix, monitor adjust medications accordingly COPD, no exacerbation at this time continue inhalers, keep sat 88 to 92 [id number] lung carcinoma with metastasis currently on chemotherapy 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 -imaging reviewed -continue per [facility] -monitor for any signs of worsening shortness of breath, hemoptysis Ambulatory dysfunction Generalized weakness -PT/OT consulted and recommends STR for less than 30 days <Christian Ley DO - Last Filed: 10/07/25 16:14> Time Attestation Discharge Coordination Time (in mins): 45 <Osiel Schafer MD - Last Filed: 10/08/25 10:50> Quality: Safe Use of Opioids Does Pt have an Active Cancer Diagnosis on the Problem List?: No <Osiel Schafer MD - Last Filed: 10/08/25 10:50> Quality: Stroke Does the patient have a stroke diagnosis?: No <Osiel Schafer MD - Last Filed: 10/08/25 10:50> Physical Exam Vital Signs: Vital Signs: Last Vital Signs Temp 98.3 F 10/07/25 15:19 Pulse 81 10/07/25 15:19 Resp 18 10/07/25 15:19 BP 138/63 10/07/25 15:19 Pulse Ox 95 10/07/25 15:19 O2 Del Method Room Air 10/07/25 15:19 O2 Flow Rate 1 10/07/25 03:37 Oxygen Flow Rate 4 10/02/25 17:10 BMI result Body Mass Index 25.8 <Christian Ley DO - Last Filed: 10/07/25 16:14> Vital Signs: Selected Entries 10/08/25 07:09 10/08/25 07:33 Temperature 97.8 F Pulse Rate 73 Respiratory Rate 16 Blood Pressure 119/58 L Pulse Oximetry 97 Oxygen Delivery Me thod Room Air <Osiel Schafer MD - Last Filed: 10/08/25 10:50> DS: Data Data Completed and Pending Completed studies during hospitalization [Text1]: Pending at discharge 10/03/25 09:22 Cytology [PTH] Routine Procedures Detoxification Services for Substance Abuse Treatment (10/18/22) Transfusion of Nonautologous Red Blood Cells into Peripheral Vein, Percutaneous Approach (08/27/25) <Christian Ley DO - Last Filed: 10/07/25 16:14> Labs on day of discharge: Laboratory Results - last 24 hr 10/07/25 06:28 WBC 21.6 H RBC 2.50 L Hgb 7.8 L Hct 24.0 L MCV 96.0 MCH 31.2 MCHC 32.5 RDW 19.7 H Plt Count 435 H MPV 9.5 Immature Gran % (Auto) Cancelled Neut % (Auto) Cancelled Lymph % (Auto) Cancelled [place] % (Auto) Cancelled Eos % (Auto) Cancelled Baso % (Auto) Cancelled Lymph # (Auto) Cancelled [place] # (Auto) Cancelled Eos # (Auto) Cancelled Baso # (Auto) Cancelled Abs Immat Gran (auto) Cancelled Absolute Neuts (auto) Cancelled Absolute Nucleated RBC 0.110 H Nucleated RBC % (auto) 0.5 H Neutrophils % (Manual) 84 H Band Neutrophils % 3 Lymphocytes % (Manual) 7 L Monocytes % (Manual) 4 Metamyelocytes % 2 Abs Neuts (Manual) 18.8 H Lymphocytes # (Manual) 1.5 Monocytes # (Manual) 0.9 Metamyelocytes # 0.4 Platelet Estimate SLIGHTLY INCREASED Large Platelets PRESENT Plt Morphology Comment NOTED RBC Morphology NOTED Polychromasia 1+ (0-2) Basophilic Stippling 1+ (0-2) Macrocytosis 1+ (5-14) Pappenheimer Bodies PRESENT Ovalocytes 1+ (5-14) [place] Cells 1+ (0-2) Sodium 139 Potassium 4.0 Chloride 102 Carbon Dioxide 32 H Anion Gap 9 L BUN 30 H Creatinine 0.87 Estim Creat Clear Calc 91.8 Estimated GFR > 60 Fasting Glucose 87 Calcium 8.0 L Total Bilirubin 0.2 AST 102 H ALT 63 H Alkaline Phosphatase 191 H Total Protein 5.0 L Albumin 2.2 L Preliminary micro results at discharge 10/03/25 11:40 Anaerobic Culture - Preliminary Thoracentesis Fluid No growth to date. <Christian Ley DO - Last Filed: 10/07/25 16:14> Discharge Plan Discharge Anticipated Discharge Date/Time: 10/08/25 10:28 <Christian Ley DO - Last Filed: 10/07/25 16:14> Patient Disposition: er [facility] <Christian Ley DO - Last Filed: 10/07/25 16:14> Discharge Diagnosis: Pneumonia, PE, Anemia, SVT, PACs, Heart failure <Christian Ley DO - Last Filed: 10/07/25 16:14> Pneumonia, PE, Anemia, SVT, PACs, Heart failure <Osiel Schafer MD - Last Filed: 10/08/25 10:50> Referrals: [facility] [Outside] - 1 Week Dawood Tariq FNP-C [Primary Care Provider, Internal Medicine] - 1 Week <Christian Ley DO - Last Filed: 10/07/25 16:14> Discharge Medications: New metoprolol tartrate 25 mg Tablet 25 mg PO BID Qty: 90 0RF Protocol: Hold for SBP/HR < HOLD for SBP < : 90 HOLD for HR < : 60 Continued folic acid 1 mg Tablet 1 mg PO DAILY Qty: 90 3RF dexamethasone 4 mg tablet See Rx Instructions .ROUTE .COMPLEX Rx Instructions: Take 4 mg p.o. b.i.d. the day before chemo, and the day after chemo ipratropium bromide 42 mcg (0.06 %) spray,non-aerosol 2 spray intranasal TID PRN (Reason: allergies) furosemide [Lasix] 20 mg tablet 20 mg PO DAILY amlodipine 10 mg tablet 10 mg PO DAILY Qty: 90 6RF Combivent Respimat 20-100 mcg/actuation mist 1 puff inhalation QID 30 Days Qty: 4 11RF Rx Instructions: space evenly during waking hours budesonide-formoterol [Symbicort] 160-4.5 mcg/actuation HFA aerosol inhaler 2 puff inhalation BID 30 Days Qty: 10.2 3RF <Christian Ley DO - Last Filed: 10/07/25 16:14> Discharge Orders: Discharge Order (Routine); Ordered 10/08/25 Ordered By: Osiel Schafer <Christian Ley DO - Last Filed: 10/07/25 16:14> Diet: Advance to usual diet <DO Bipin Posey Last Filed: 10/07/25 16:14> Advance to usual diet <Osiel Schafer MD - Last Filed: 10/08/25 10:50> Activity on Discharge: As tolerated <Christian Ley DO - Last Filed: 10/07/25 16:14> As tolerated <Osiel Schafer MD - Last Filed: 10/08/25 10:50> Stand Alone Forms: Patient Portal Discharge page <Christian Ley DO - Last Filed: 10/07/25 16:14> Print Language: Khmer <Christian Ley DO - Last Filed: 10/07/25 16:14> Care Plan Goals: Continue all meds as outlined on transfer sheet. Continue Eliquis until follow up with Oncology. They will discuss further plans <Christian Ley DO - Last Filed: 10/07/25 16:14> Health Concerns: Rehab until improved to be discharged home <Christian Ley DO - Last Filed: 10/07/25 16:14> Plan of Treatment: As per receiving facility <Christian Ley DO - Last Filed: 10/07/25 16:14> Assessment: See discharge summary <DO Bipin Posey Last Filed: 10/07/25 16:14>
[2025-10-08] MEDS: 0.9 % Sodium Chloride Flush 3 ML SYRINGE IVFLUSH ×2 (00:21→08:46)
[2025-10-08 03:06] VITALS: BP 120/67; PULSE 73; RESP 14; TEMP 36; O2SAT 94
[2025-10-08 07:09] VITALS: BP 119/58; PULSE 73; RESP 16; TEMP 36.6; O2SAT 97
[2025-10-08] MEDS: Fluticasone/Vilanterol 200/25 BLST.W.DEV 1 PUFF INHALE (07:32)
[2025-10-08 07:33] VITALS: PULSE 73; RESP 16; O2SAT 97
--- NOTE | 2025-10-08 10:36 | MHC.CM.PN ---
per ROUNDS, Patient is medically cleared for dc to SNF/STR today. [facility], via [facility]. IMM was addressed with Patient. Per Patient's request, CM has informed Sister/Rosalie, via tiger text of the dc plan.
[2025-10-08 11:36] VITALS: BP 125/63; PULSE 86; RESP 18; TEMP 36.2; O2SAT 97
== END 2025-10-08 14:33 | disposition skilled nursing facility (03) | DRG 180 ==
LOC: HO.ED 12:59 → HO.EDOVER 13:33 → HO.S3 19:15 → HO.IMC 10-02 17:10
PROVIDERS: Family Medicine; Hospitalist; Internal Medicine; Radiology Diagnostic Radiology; Student in an Organized Health Care Education/Training Program; Admitting Provider Nurse Practitioner Acute Care; Emergency Provider Emergency Medicine Emergency Medical Services; Visit Provider Internal Medicine
PROC: 0W9B3ZZ Drainage of Left Pleural Cavity, Percutaneous Approach (ICD-10-PCS; principal; 2025-10-03 11:00)
DX: C34.11 Malignant neoplasm of upper lobe, right bronchus or lung (principal); I26.99 Other pulmonary embolism without acute cor pulmonale; J18.9 Pneumonia, unspecified organism; J96.01 Acute respiratory failure with hypoxia; J44.0 Chronic obstructive pulmonary disease with (acute) lower respiratory infection; I50.32 Chronic diastolic (congestive) heart failure; I47.10 Supraventricular tachycardia, unspecified; I31.9 Disease of pericardium, unspecified; J90 Pleural effusion, not elsewhere classified; Z66 Do not resuscitate; I11.0 Hypertensive heart disease with heart failure; I49.1 Atrial premature depolarization; I49.3 Ventricular premature depolarization; T45.1X5A Adverse effect of antineoplastic and immunosuppressive drugs, initial encounter; R00.1 Bradycardia, unspecified; D63.0 Anemia in neoplastic disease; F17.210 Nicotine dependence, cigarettes, uncomplicated; Z71.6 Tobacco abuse counseling; Z20.822 Contact with and (suspected) exposure to COVID-19; Z99.81 Dependence on supplemental oxygen; Z79.899 Other long term (current) drug therapy
CPT/HCPCS: 32555; 36415; 71045; 71275; 80048; 80053; 81003; 82042; 82272; 82803; 82945; 82947; 83605; 83615; 83690; 83735; 83880; 84157; 84484; 84550; 85007; 85014; 85018; 85025; 85027; 85610; 85730; 86850; 86900; 86901; 86923; 87040; 87070; 87073; 87205; 87637; 88112; 88305; 89051; 93005; 93308; 93970; 94640; 97110; 97116; 97162; 97166; 97530; 97535; 99285; J0153; J0616; J0696; J1644; J1650; J1938; J2003; J2270; J7120; P9016; Q9957; Q9967

== ENCOUNTER → 2025-09-23 09:25 | Outpatient (BNV) | payer MEDICARE, MEDICAID, SELFPAY | PROVIDERS: Admitting Provider Nurse Practitioner Acute Care; Emergency Provider Emergency Medicine Emergency Medical Services; Visit Provider Internal Medicine | DX: R94.31 Abnormal electrocardiogram [ECG] [EKG] (principal); R06.00 Dyspnea, unspecified | CPT/HCPCS: 93010 ==

== ENCOUNTER → 2025-09-23 10:41 | Outpatient (BNV) | payer MEDICARE, MEDICAID, SELFPAY | PROVIDERS: Emergency Provider Emergency Medicine Emergency Medical Services; Visit Provider Radiology Diagnostic Radiology | DX: J44.9 Chronic obstructive pulmonary disease, unspecified (principal); J90 Pleural effusion, not elsewhere classified; J98.11 Atelectasis; R91.8 Other nonspecific abnormal finding of lung field | CPT/HCPCS: 71045 ==

== ENCOUNTER 2025-09-23 13:29 | Outpatient (BNV) | payer MEDICARE, MEDICAID, SELFPAY | END 2025-09-29 07:00 | PROVIDERS: Admitting Provider Nurse Practitioner Acute Care; Emergency Provider Emergency Medicine Emergency Medical Services; Visit Provider Specialist | DX: R91.8 Other nonspecific abnormal finding of lung field (principal) | CPT/HCPCS: 71045 ==

== ENCOUNTER 2025-09-23 13:29 | Outpatient (BNV) | payer MEDICARE, MEDICAID, SELFPAY | END 2025-10-05 09:00 | PROVIDERS: Admitting Provider Nurse Practitioner Acute Care; Emergency Provider Emergency Medicine Emergency Medical Services; Visit Provider Internal Medicine Cardiovascular Disease | DX: R94.31 Abnormal electrocardiogram [ECG] [EKG] (principal); R00.1 Bradycardia, unspecified; I49.3 Ventricular premature depolarization; I49.1 Atrial premature depolarization; I25.2 Old myocardial infarction | CPT/HCPCS: 93010 ==

== ENCOUNTER 2025-09-23 13:29 | Outpatient (BNV) | payer MEDICARE, MEDICAID, SELFPAY | END 2025-09-27 09:30 | PROVIDERS: Admitting Provider Nurse Practitioner Acute Care; Emergency Provider Emergency Medicine Emergency Medical Services; Visit Provider Radiology Diagnostic Radiology | DX: R91.8 Other nonspecific abnormal finding of lung field (principal) | CPT/HCPCS: 71045 ==

== ENCOUNTER 2025-09-23 13:29 | Outpatient (BNV) | payer MEDICARE, MEDICAID, SELFPAY | END 2025-09-24 22:55 | PROVIDERS: Admitting Provider Nurse Practitioner Acute Care; Emergency Provider Emergency Medicine Emergency Medical Services; Visit Provider Internal Medicine | DX: R94.31 Abnormal electrocardiogram [ECG] [EKG] (principal) | CPT/HCPCS: 93010 ==

== ENCOUNTER 2025-09-23 13:29 | Outpatient (BNV) | payer MEDICARE, MEDICAID, SELFPAY | END 2025-10-02 08:16 | PROVIDERS: Admitting Provider Nurse Practitioner Acute Care; Emergency Provider Emergency Medicine Emergency Medical Services; Visit Provider Internal Medicine Cardiovascular Disease | DX: R00.0 Tachycardia, unspecified (principal); I49.3 Ventricular premature depolarization | CPT/HCPCS: 93010 ==

== ENCOUNTER 2025-09-23 13:29 | Outpatient (BNV) | payer MEDICARE, MEDICAID, SELFPAY | END 2025-09-28 10:08 | PROVIDERS: Admitting Provider Nurse Practitioner Acute Care; Emergency Provider Emergency Medicine Emergency Medical Services; Visit Provider Radiology Diagnostic Radiology | DX: J84.9 Interstitial pulmonary disease, unspecified (principal); R91.8 Other nonspecific abnormal finding of lung field | CPT/HCPCS: 71045 ==

== ENCOUNTER 2025-09-23 13:29 | Outpatient (BNV) | payer MEDICARE, MEDICAID, SELFPAY | END 2025-10-03 11:40 | PROVIDERS: Admitting Provider Nurse Practitioner Acute Care; Emergency Provider Emergency Medicine Emergency Medical Services; Visit Provider Radiology Diagnostic Radiology | DX: J90 Pleural effusion, not elsewhere classified (principal); R91.8 Other nonspecific abnormal finding of lung field | CPT/HCPCS: 32555; 71045 ==

== ENCOUNTER 2025-09-23 13:29 | Outpatient (BNV) | payer MEDICARE, MEDICAID, SELFPAY | END 2025-10-02 07:47 | PROVIDERS: Admitting Provider Nurse Practitioner Acute Care; Emergency Provider Emergency Medicine Emergency Medical Services; Visit Provider Radiology Diagnostic Ultrasound | DX: J43.9 Emphysema, unspecified (principal); I26.99 Other pulmonary embolism without acute cor pulmonale; J90 Pleural effusion, not elsewhere classified; I31.39 Other pericardial effusion (noninflammatory); I25.10 Atherosclerotic heart disease of native coronary artery without angina pectoris; R09.89 Other specified symptoms and signs involving the circulatory and respiratory systems; R91.8 Other nonspecific abnormal finding of lung field | CPT/HCPCS: 71045; 71275; 93970 ==

== ENCOUNTER → 2025-09-23 13:29 | Outpatient (BNV) | payer MEDICARE, MEDICAID, SELFPAY | PROVIDERS: Admitting Provider Nurse Practitioner Acute Care; Emergency Provider Emergency Medicine Emergency Medical Services; Visit Provider Internal Medicine | DX: C34.11 Malignant neoplasm of upper lobe, right bronchus or lung (principal); C78.7 Secondary malignant neoplasm of liver and intrahepatic bile duct; I26.09 Other pulmonary embolism with acute cor pulmonale; J91.0 Malignant pleural effusion; J18.9 Pneumonia, unspecified organism; D64.81 Anemia due to antineoplastic chemotherapy | CPT/HCPCS: 99222; 99232 ==

== ENCOUNTER → 2025-09-23 13:29 | Outpatient (BNV) | payer MEDICARE, MEDICAID, SELFPAY | PROVIDERS: Admitting Provider Nurse Practitioner Acute Care; Emergency Provider Emergency Medicine Emergency Medical Services; Visit Provider Surgery Vascular Surgery | DX: I26.99 Other pulmonary embolism without acute cor pulmonale (principal) | CPT/HCPCS: 99222 ==

== ENCOUNTER → 2025-09-23 13:29 | Outpatient (BNV) | payer MEDICARE, MEDICAID, SELFPAY | PROVIDERS: Admitting Provider Nurse Practitioner Acute Care; Emergency Provider Emergency Medicine Emergency Medical Services; Visit Provider Nurse Practitioner Acute Care | DX: C34.90 Malignant neoplasm of unspecified part of unspecified bronchus or lung (principal); C78.7 Secondary malignant neoplasm of liver and intrahepatic bile duct; J41.0 Simple chronic bronchitis; J96.01 Acute respiratory failure with hypoxia; D49.9 Neoplasm of unspecified behavior of unspecified site; D84.81 Immunodeficiency due to conditions classified elsewhere | CPT/HCPCS: 99223; 99232; 99233; 99499 ==

== ENCOUNTER → 2025-09-23 13:29 | Outpatient (BNV) | payer MEDICARE, MEDICAID, SELFPAY | PROVIDERS: Admitting Provider Nurse Practitioner Acute Care; Emergency Provider Emergency Medicine Emergency Medical Services; Visit Provider Internal Medicine Cardiovascular Disease | DX: R07.9 Chest pain, unspecified (principal); I49.9 Cardiac arrhythmia, unspecified | CPT/HCPCS: 99222; 99233 ==

== ENCOUNTER → 2025-09-23 13:29 | Outpatient (BNV) | payer MEDICARE, MEDICAID, SELFPAY | PROVIDERS: Admitting Provider Nurse Practitioner Acute Care; Emergency Provider Emergency Medicine Emergency Medical Services; Visit Provider Hospitalist | DX: J41.0 Simple chronic bronchitis (principal); J96.01 Acute respiratory failure with hypoxia; C34.90 Malignant neoplasm of unspecified part of unspecified bronchus or lung; C78.7 Secondary malignant neoplasm of liver and intrahepatic bile duct; D64.9 Anemia, unspecified; I50.9 Heart failure, unspecified | CPT/HCPCS: 99223 ==